=== PATIENT | male | born 1960 | race Caucasian/White ===

== ENCOUNTER 2023-11-12 18:34 | Inpatient (IN) | payer OTHER, SELFPAY ==
[2023-11-12 12:53] VITALS: BP 125/82
[2023-11-12 13:17] LABS: Glucose - Point of Care 178 mg/dl (70-99)
[2023-11-12 13:23] LABS: % Basophils 1.5 % (0-2); % Eosinophils 2.4 % (0-6); % Immature Granulocytes 0.2 % (0-0.5); % Lymphocytes 15.2 % (20.5-51.1); % Monocytes 9.3 % (1.7-9.3); % Neutrophils 71.4 % (42.2-75.2); Absolute Basophils 0.1 10^3/uL (0-0.2); Absolute Eosinophils 0.1 10^3/uL (0-0.7); Absolute Lymphocytes 0.7 10^3/uL (1.2-3.4); Absolute Monocytes 0.4 10^3/uL (0.1-0.6); Absolute Neutrophils 3.2 10^3/uL (1.4-6.5); Hematocrit 32.6 % (39.0-52.0); Hemoglobin 10.7 g/dL (13.0-18.0); Mean Corp Hgb Conc. 32.8 g/dL (33.0-37.0); Mean Corpuscular Hgb 29.5 pg (27.0-31.0); Mean Corpuscular Volume 89.8 fL (80.0-94.0); Mean Platelet Volume 10.3 fL (7.4-10.4); Nucleated Red Blood Cells % 0 % (-); Platelet Count 171 10^3/uL (130-400); Red Blood Cell Count 3.63 10^6/uL (4.70-6.10); Red Cell Dist. Width 15.6 % (11.5-14.5); White Blood Cell Count 4.5 10^3/uL (4.8-10.8)
[2023-11-12 13:25] LABS: Venous Blood Gas B.E. 3.1 mmol/L (-4 to +4); Venous Blood Gas HCO3 28.5 mmol/L (22-27); Venous Blood Gas O2 Sat % 86.9 %; Venous Blood Gas O2 Therapy RA; Venous Blood Gas pCO2 46 mmHg (35-48); Venous Blood Gas pO2 62 mmHg (30-50)
[2023-11-12 13:41] LABS: Lactic Acid 0.9 mmol/L (0.7-2.0)
[2023-11-12 13:45] LABS: ALT (SGPT) 45 U/L (0-50); AST (SGOT) 54 U/L (17-59); Albumin 2.7 g/dl (3.5-5.0); Alkaline Phosphatase 93 U/L (38-126); Blood Urea Nitrogen 76 mg/dl (9-20); Carbon Dioxide 27 mmol/L (22-30); Chloride 95 mmol/L (98-107); Glucose 185 mg/dl (70-99); Potassium 4.8 mmol/L (3.5-5.1); Sodium 134 mmol/L (135-145); Total Bilirubin 0.8 mg/dl (0.2-1.3); Total Protein 5.3 g/dl (6.3-8.2)
[2023-11-12 13:48] LABS: NT-proBNP > 27000 pg/ml
[2023-11-12 13:51] LABS: Ammonia < 9 umol/L (9-30)
[2023-11-12 14:38] LABS: B-Hydroxybutyrate 0.68 mmol/L (0.02-0.27)
--- NOTE | 2023-11-12 15:54 | ED.GENMED ---
History of Present Illness
General
Chief Complaint: Skin Problem
Source: patient and spouse
Exam Limitations: none
Time Seen by Provider: 11/12/23 15:27
Nursing documentation reviewed up to this point in time: agreed with
Travel History
Have you had any contact with someone who has COVID-19?: No
Do you have any symptoms of coronavirus? Fever > 100 degrees, chills, cough, shortness of breath, sore throat, loss of taste or smell, muscle aches, or headache?: No
History of Present Illness
History of Present Illness:
63 yo male presents to the emergency department c/o right foot wound, confusion, shortness of breath and swelling. He is on peritoneal dialysis followed at [place].
Past History
Past History
ED Past Medical History: HTN, IDDM, Renal failure and Other (PVD)
ED Past Surgical History: Other (Vascular stents)
Social History
Tobacco: Non-smoker
Alcohol: None
Drug: None
Personal:
Living: with family
Review of Systems
Review of Systems
Allergies reviewed?: Yes
All Other Systems: Not applicable
Constitutional: Reports no symptoms
EENT: Reports no symptoms
Respiratory: Reports trouble breathing
Cardiac: Reports no symptoms
ABD/GI: Reports no symptoms
: Reports no symptoms
Musculoskeletal: Reports edema
Skin: Reports no symptoms
Neurological: Reports no symptoms
Endocrine: Reports no symptoms
Hematologic/Lymphatic: Reports no symptoms
Psychiatric: Reports no symptoms
Phy Exam
Physical Exam
Physical Exam:
Physical Exam
General: no apparent distress, not acutely ill
Neck: supple. no meningeal signs. normal posterior pharynx
Heart: s1/s2 regular rate and rhythm, no murmur. equal radial
pulses.
HEENT: Pupils equal round reactive to light, EOMI
Lungs: no acute respiratory distress. clear bilaterally
Abdomen: normal bowel sounds. not tender. no CVAT, peritoneal dialysis port
Neuro: alert and oriented. no focal neurological deficits cranial nerves II through XII intact
Skin: no rash
Psychiatric: well kept. interactive and cooperative
Extremities: Bilateral tibial edema. no calf tenderness. negative homans. good distal pulses
Course
Orders/Labs/Results
Orders:
Orders
11/12/23 13:04
ECG [Electrocardiogram (*1)] Urgent
Reason for Study: Fatigue / Weakness
EKG- Treatment ONCE
11/12/23 13:11
Type+Screen Urgent
Ammonia Urgent
B-Hydroxybutyrate Urgent
Complete Blood Count/With Diff Urgent
Comprehensive Metabolic Panel Urgent
Lactic Acid Urgent
NT-proBNP Urgent
Venous Blood Gas Urgent
%Oxygen/Room Air: RA
Blood Culture Urgent
KRISTEN Source: Blood/Venous
Specimen Description:
11/12/23 15:51
CT Head W/o Iv Contrast Urgent
Comment:
Reason For Exam: confusion
11/12/23 15:53
CR Chest - 2 Views Urgent
Comment:
Reason For Exam: short of breath
11/12/23 17:29
Oxycodone/Acetaminophen [Percocet 5/325] 1 tablet PO NOW STA
11/12/23 17:38
Urinalysis Reflex To Culture Routine
11/12/23 17:50
Admit/Transfer Patient As Directed
Co-Sign Provider:
Level of Care: Inpatient admission
Assign to:: IMU- Intermediate Care
Physician / Group: romulo
Diagnosis: CHF
Reason for Hospitalization: chf
Expected length of stay greater than two midnights?: Yes
ELOS- Estimated Length of Stay in days: 3
I certify the patient meets the requirements for IP care: Yes
11/12/23 17:53
Code Status As Directed
Resuscitation Status: Full Code
11/12/23 17:55
COVID-19 Antigen Stat
Source: Nasal Swab
PT/INR [Prothrombin Time] Stat
11/12/23 18:24
Troponin I Urgent
Peritoneal Dialysis As Directed
Use same dialysate for all exchanges or alternate dialysate?: Alternate exchanges
Deflex Low Ca/Low Mag primary alternate % Dextrose:: 4.25% Dextrose
Alternate with:: 2.5% Dextrose
Volume in liters per exchange (liters):: 2
Frequency of exchanges in hours:: 4
Additives:: No
11/12/23 18:25
Furosemide [Lasix] 80 mg IV NOW STA
HydrALAZINE [Apresoline] 10 mg IV Q4HPRN PRN
11/12/23 18:38
Acetaminophen [Tylenol] 650 mg PO DAILYPRN PRN
Dextrose 50%-Water [Dextrose 50% Syringe] 12.5 grams IV [id number] PRN
Gabapentin [Neurontin] 100 mg PO BIDPRN PRN
Glucagon [GlucaGen] 1 mg IM PRN PRN
Melatonin 3 mg PO HSPRN PRN
Oxycodone/Acetaminophen [Percocet 5/325] 1 tablet PO DAILYPRN PRN
Warfarin [Coumadin] 4 mg PO MOTUWETHFRSA@1800
11/12/23 18:38
NEPHROLOGY CONSULT Routine
Consulting Provider: Reji Fields
Was physician already notified: Yes
WOUND/OSTOMY CONSULT Routine
Reason for Consult: right LE blister
MRI Brain [MR Brain Without Contrast] Routine
Comment:
Reason For Exam: dysphagia
Recent pill cam endoscopy?: No
Activity As Directed
Activity Level: As Tolerated
Bedside Glucose Monitoring As Directed
Frequency: AC&HS
Comment: Change to q6h if pt on TPN, tube feeding or not eating
Intake/ Output As Directed
Frequency: Per unit guidelines
Neurological Checks As Directed
Frequency: Per unit guidelines
Vital Signs As Directed
Frequency: Per unit guidelines
Weight As Directed
Frequency: Daily
11/12/23 20:00
Amlodipine [Norvasc] 5 mg PO BID
Bisoprolol Fumarate [Zebeta] 5 mg PO BID
Cilostazol [Pletal] 100 mg PO BID
Magnesium l-Lactate [Mag-Tab Sr] 84 mg PO BID
11/12/23 22:00
Atorvastatin [Lipitor] 40 mg PO HS
Potassium Chloride [KCl] 10 meq PO HS
11/13/23 Breakfast
2000 calorie (17 carb) Diabetic
Fluid Restriction: 1200 mL/day (40 oz)
Diabetic Diet: Sodium, 2 Gram
Basic Metabolic Panel IN AM
Cardiovascular Evaluation IN AM
Complete Blood Count/No Diff IN AM
Glycohemoglobin (HgbA1c) IN AM
PT/INR [Prothrombin Time] IN AM
Occupational Therapy Consult [Ot Eval And Treat] IN AM
Physical Therapy Consult [Pt Eval And Treat] IN AM
Activity Level: As Tolerated
11/13/23 07:30
Insulin Aspart Corrective Low [Novolog Flexpen-Low Resistance] See Protocol SC AC
11/13/23 08:00
Aspirin Low Dose EC [Aspir Low (Enteric Coated)] 81 mg PO DAILY
Calcium Acetate [Phoslo] 667 mg PO MEALS
Ezetimibe [Zetia] 10 mg PO DAILY
Insulin Aspart Pen [Novolog Flexpen] 28 units SC BID
Pantoprazole [Protonix] 40 mg PO DAILY
Sertraline HCl [Zoloft] 100 mg PO DAILY
insulin glargine [Basaglar KwikPen U-100 Insulin] 30 unit SC DAILY
11/14/23 06:00
Basic Metabolic Panel IN AM
Complete Blood Count/No Diff IN AM
PT/INR [Prothrombin Time] IN AM
11/14/23 08:00
Ergocalciferol [Drisdol (Vitamin D2)] 50,000 units PO PRESLEY
11/15/23 06:00
Basic Metabolic Panel IN AM
Complete Blood Count/No Diff IN AM
PT/INR [Prothrombin Time] IN AM
11/15/23 08:00
Calcitriol [Rocaltrol] 0.25 mcg PO MoWeFr@0800
11/16/23 06:00
Basic Metabolic Panel IN AM
Complete Blood Count/No Diff IN AM
PT/INR [Prothrombin Time] IN AM
11/17/23 06:00
Basic Metabolic Panel IN AM
Complete Blood Count/No Diff IN AM
Abnormal Lab Results
11/12/23 11/12/23
13:11 13:12
WBC 4.5 L 10^3/uL
(4.8-10.8)
RBC 3.63 L 10^6/uL
(4.70-6.10)
Hgb 10.7 L g/dL
(13.0-18.0)
Hct 32.6 L %
(39.0-52.0)
MCHC 32.8 L g/dL
(33.0-37.0)
RDW 15.6 H %
(11.5-14.5)
Absolute Lymphs (auto) 0.7 L 10^3/uL
(1.2-3.4)
Lymphocytes % 15.2 L %
(20.5-51.1)
VBG pO2 62 H mmHg
(30-50)
VBG HCO3 28.5 H mmol/L
(22-27)
Sodium 134 L mmol/L
(135-145)
Chloride 95 L mmol/L
(98-107)
BUN 76 H mg/dl
(9-20)
Creatinine 13.2 H* mg/dL
(0.7-1.3)
Glucose 185 H mg/dl
(70-99)
Ammonia < 9 L umol/L
(9-30)
Total Protein 5.3 L g/dl
(6.3-8.2)
Albumin 2.7 L g/dl
(3.5-5.0)
B-Hydroxybutyrate 0.68 H mmol/L
(0.02-0.27)
POC Glucose 178 H mg/dl
(70-99)
11/12/23 13:11
11/12/23 13:11
Vital Signs
Initial and Last Documented VS:
Initial Vital Signs
Temp Pulse Resp BP Pulse Ox
97.0 F 74 20 125/82 99
11/12/23 12:53 11/12/23 12:53 11/12/23 12:53 11/12/23 12:53 11/12/23 12:53
Last Documented Vital Signs
Temp Pulse Resp BP Pulse Ox
97.0 F 81 20 125/82 93
11/12/23 12:53 11/12/23 18:15 11/12/23 18:15 11/12/23 12:53 11/12/23 18:15
MDM/Problems Addressed
Differential Diagnosis Includes:
CVA, toxic metabolic encephalopathy, renal failure, peripheral neuropathy
MDM/Problems Addressed:
63-year-old male with altered mental status, possibly due to toxic metabolic encephalopathy versus CVA, chronic renal failure on peritoneal dialysis, diabetes mellitus
Chronic conditions affecting care: DM, HTN and Kidney disease
Acute Exacerbation and/or Progression of Chronic Illness: DM, HTN and Kidney disease
*Pulse Oximetry
Patient hypoxic: no
*EKG
Interpreted by ED Provider?: Yes
EKG Intrepretation Date: 11/12/23
EKG Intrepretation Time: 13:16
Interpretation: abnormal
Comparison EKG: no comparison EKG present
Heart Rate: 71
Rate: normal
Rhythm: sinus
Jackson: normal axis
Interval: normal interval
QRS Pattern: right bundle branch block
Ischemia: non-specific ST changes
*Patient Service Associate Interpretation
Rate: normal
Interpretation: normal
Heart Rate: 72
Rhythm: sinus
*Critical Care Note
Total Time (30-74mins, 75-104mins- exclusive of procedures): Not Applicable
Data Reviewed
Review of Other/Old Records Reveals: Operative Reports
Source: previous hospital records (diagnostic arteriogram, blloon angioplasty and stent right sfa and eia 06/13/21)
Patient Management
Social determinants of health affecting care: Strong social support
Escalation/DeEscalation of care consider admission/obs:
admit not indicated
ED Attending Note
-
Portions of this chart may have been created with voice recognition software.� Occasional wrong word or��sound alike� substitutions may have occurred due to the inherent limitations of voice recognition software.
Discharge Plan
Departure
Patient Disposition: Admit
Date of Disposition: 11/12/23
Time of Disposition: 17:02
Admit to: Telemetry
Presentation/result/management discussed w/ accepting MD/DO: Hospitalist
Patient with high blood pressure during this ER visit?: Yes
Condition: Fair
Discharge Problem:
Fluid overload, Confusion, Blister of foot, right
Interventions
Interventions:
*Risk Screen - Suicide Last Done: 11/12/23 12:53
*General Assessment Last Done: 11/12/23 12:53
*Neglect/Abuse Screening Last Done: 11/12/23 12:53
ED- Fall Risk Assessment Last Done: 11/12/23 18:24
--- NOTE | 2023-11-12 17:31 | HPS.HSE ---
Addendum entered and electronically signed by Rodríguez Eugene MD 11/12/23 18:16:
I saw and examined the patient.
The DINKING MACHINE OPERATOR's note was reviewed and I agree with the note.
Comment:
63-year-old male with extensive past medical history of ESRD on peritoneal dialysis since 2019 who is presenting with confusion and lower extremity edema. Per spouse at bedside, patient has been confusing to properly administer and use PD. Spouse
has been doing PD manually and states she has been making mistakes. Spouse also stated that patient has been confused and slow to respond at times. Patient stated sometimes he has difficulty expressing himself. States he rarely uses lorazepam and
uses half milligram dose compared to 1 mg as prescribed. Also states of worsening of lower extremity edema for the past 2 weeks and also bilateral upper extremities. During my evaluation patient became hypoxic to O2 sats of 84-85% on room air and
2 L oxygenation was applied.
General:�Well Developed, Well Nourished and No Apparent Distress
HEENT:�NormoCephalic, Moist mucous membranes and Atraumatic
Respiratory:�Clear
Cardiac:�S1/S2 and Regular Rhythm; No Murmur or Rub
GI:�Soft, Non Tender, Non Distended and Normal Bowel Sounds; No Organomegaly, PD catheter noted
Musculoskeletal:�No Clubbing, No Cyanosis and Other (Bilateral lower extremities edema right greater than left)
Skin:�No Rash
Neuro:�AO x 3 and Nonfocal/grossly intact
Psych:�Calm
Impression
Acute toxic metabolic encephalopathy likely secondary to uremia versus lorazepam induced versus rule out CVA
Anasarca secondary to ESRD secondary to improper PD at home
Primary hypertension
GERD
Diabetes mellitus
Depression
Peripheral arterial disease
Peripheral venous disease
Anemia of chronic disease
Hyperlipidemia
Depression/anxiety
Plan
Check MRI of the brain
Reduce Lantus dose. Patient currently states he is hungry and wants to eat
Per spouse patient sugar has been elevated at home.
Continue home blood pressure medication
Hold lorazepam
Continue Coumadin
Neurochecks
Check INR
Nephrology evaluation. Probably will require VN as patient most likely not properly performing PD at home
DVT prophylaxis with Coumadin
I spent a total of 78 minutes with the patient or on the floor. More than 50% of this time involved counseling and coordination of care.
Original Note:
Family Physician
-
Family Physician: Susan Starkey
Chief Complaint
-
CONFUSION
sob
left LE blister
History of Present Illness
64-year-old male past medical history of hypertension, type 2 diabetes, peripheral vascular disease, coronary artery disease, hypertension, hyperlipidemia, end-stage renal disease on peritoneal dialysis, depression presented to us with right lower
extremity blister which he noticed couple days ago. Patient stated bilateral lower extremity edema. Short of breath which is worse with exertion. Patient also complaining of orthopnea. Complaining of headache. Denies dizziness or syncope.
Denies chest pain. Denies abdominal pain nausea vomiting. stated intermittent diarrhea for past few weeks. Patient denies dysuria hematuria. stated intermittent confusion for the past few weeks and her. He usually used to do his
peritoneal dialysis by himself but not anymore because he has been forgetting.
In ER elevated BNP, chest x-ray with mild CHF. Admitted for further management
Medical History
Past Medical History
Past Medical History: Reports Other
Additional Past Medical History:
GERD
HTN
Hypercholesterolemia
NIDDM, Renal Failure
ESRd on peritoneal dialysis
Depression
PVD
PAD
Past Surgical History: Reports Other
Additional Past Surgical History:
Bilateral carotid endarterectomy
Cholecystectomy
Coronary artery bypass graft
Stent on his legs
Social History
Tobacco: Non-smoker
Alcohol: None
Drug: None
Personal:
Living: With Family
Family History
Family History: Not pertinent
Allergies / Home Medications
Allergies reflects when Allergies were last updated in [employer].
Home Medications with original date entered in [employer]
Allergy/Medication List:
Allergies
Allergy/AdvReac Type Severity Reaction Status Date / Time
No Known Allergies Allergy Verified 10/15/23 11:53
Home Medications
atorvastatin 40 mg tablet 40 mg PO HS 06/12/21
cilostazol 100 mg tablet 100 mg PO BID 06/12/21
ergocalciferol (vitamin D2) 1,250 mcg (50,000 unit) capsule 50,000 units PO PRESLEY 06/12/21
ezetimibe 10 mg tablet 10 mg PO DAILY 06/12/21
pantoprazole 40 mg tablet,delayed release 40 mg PO DAILY 06/12/21
sertraline 50 mg tablet 100 mg PO DAILY 06/12/21
acetaminophen 325 mg tablet (Tylenol) 650 mg PO DAILYPRN PRN mild pain 10/15/23
amlodipine 5 mg tablet 5 mg PO BID 10/15/23
bisoprolol fumarate 5 mg tablet 5 mg PO BID 10/15/23
calcitriol 0.25 mcg capsule 0.25 mcg PO MOWEFR 10/15/23
calcium acetate 668 mg (169 mg calcium) tablet 668 mg PO MEALS 10/15/23
gabapentin 100 mg capsule 100 mg PO BIDPRN PRN nerve pain 10/15/23
insulin aspart U-100 100 unit/mL (3 mL) subcutaneous pen 28 unit SC BID 10/15/23
insulin glargine 100 unit/mL (3 mL) subcutaneous pen (Basaglar KwikPen U-100 Insulin) 60 unit SC DAILY 10/15/23
magnesium oxide 400 mg PO BID 10/15/23
melatonin 3 mg tablet 3 mg PO HSPRN PRN sleep 10/15/23
oxycodone-acetaminophen 5 mg-325 mg tablet 1 tab PO DAILYPRN PRN severe pain 10/15/23
potassium chloride 10 mEq tablet,extended release 10 meq PO HS 10/15/23
warfarin 4 mg tablet 4 mg PO MOTUWETHFRSA@1800 10/15/23
aspirin 81 mg tablet,delayed release 81 mg PO DAILY 11/12/23
lorazepam 1 mg tablet 1 mg PO DAILY PRN anxiety 11/12/23
Review of Systems
-
Constitutional: Reports Weight Gain
EENT: Reports No Symptoms
Respiratory: Reports Cough and Trouble Breathing
Cardiac: Reports No Symptoms
Abdomen/GI: Reports Diarrhea
: Reports No Symptoms
Musculoskeletal: Reports Edema (Bilateral lower extremity edema)
Skin: Reports No Symptoms
Neurological: Reports Headache
Endocrine: Reports No Symptoms
Hematologic/Lymphatic: Reports No Symptoms
Psych: Reports No Symptoms
Physical Exam
Vital Signs
Vital Signs
Temp Pulse Resp BP Pulse Ox
97.0 F 74 20 125/82 99
11/12/23 12:53 11/12/23 12:53 11/12/23 12:53 11/12/23 12:53 11/12/23 12:53
Physical Exam
General: Well Developed, Well Nourished and No Apparent Distress
HEENT: NormoCephalic, Moist mucous membranes and Atraumatic
Respiratory: Clear
Cardiac: S1/S2 and Regular Rhythm; No Murmur or Rub
GI: Soft, Non Tender, Non Distended and Normal Bowel Sounds; No Organomegaly
Rectal: Deferred by Provider
Musculoskeletal: No Clubbing, No Cyanosis and Other (Bilateral lower extremities edema right greater than left)
Skin: No Rash
Neuro: AO x 3 and Nonfocal/grossly intact
Psych: Calm
Laboratory Results
-
11/12/23 13:11
11/12/23 13:11
Laboratory Results
Lactic Acid 0.9 mmol/L (0.7-2.0) 11/12/23 13:11
Total Bilirubin 0.8 mg/dl (0.2-1.3) 11/12/23 13:11
AST 54 U/L (17-59) 11/12/23 13:11
ALT 45 U/L (0-50) 11/12/23 13:11
Alkaline Phosphatase 93 U/L (38-126) 11/12/23 13:11
Data Reviewed
-
Diagnostic Radiology: Report Reviewed by me
Lab Data: Labs Reviewed by me
Impression/Plan
-
# Metabolic encephalopathy likely uremic/dysphasia
-Head CT with impression of no acute intracranial abnormality noted.Increased soft tissue attenuation in the 0deep subcutaneous tissues adjacent to the outer table of the posterior midline/left paramidline parietal region, raising the possibility of
posttraumatic soft tissue swelling/contusion. Clinical correlation recommended.
-UA pending
-continue to monitor mentation
-obatin MRI of head to r/o acute stroke
# Diabetic foot blister wound
-does not look infectious
-afebrile
-ctm
-wound care consulted
# CHF exacerbation
-BNP 64261
-Chest x-ray with impression of Findings suspicious for mild congestive heart failure.
-Strict SOLIS
-Daily weight
-Fluid restriction
-nephrology consulted
# End-stage renal disease on peritoneal dialysis
-Nephrology consulted
-Calcitrol, calcium acetate
# Anemia of chronic kidney disease
-Hemoglobin stable at 10.7
-No active bleeding
-Continue to monitor
#Severe R PVD with claudication
#HX of vascular stenting (RLE x 2, LLE x 2)
-s/p angiopathy, right iliac artery,� balloon angioplasty and also status post OR on 06/13 for lysis� removal, SFA stent and external iliac stent
- continue ASA/Statin/cilostazol
-Gabapentin continued
-Coumadin continued
-daily PT/INR
Essential HTN
- continue Norvasc
- continue bisoprolol
IDDM
-sliding scale
-aspart 28un bid
-basaglar 30 units daily
-CHO diet
#HLD
- statin/Zetia
#CAD s/p CABG
- continue ASA/Statin/BB
Depression - continue Zoloft
DVT ppx:
Code: Full
[2023-11-12] MEDS: PERCOCET 5/325 1 TABLET PO (17:51)
--- NOTE | 2023-11-12 18:20 | CON.MD ---
Consultation - Medical
-
Assessment
-ESRD/PD
-volume overload
-CHF
-PAD
-HTN
-edema
-CAD/CABG
-DM2
Plan
-PD ordered, alternating 4.25/2.5%, 2L q4h
-trial lasix IV
-will need echo
-hydralazine prn
-check troponin
-[id number]
[2023-11-12 19:25] VITALS: BMI 33.1
[2023-11-12 19:43] LABS: INR 1.33; PT 16.8 Sec (11.4-14.6)
[2023-11-12 19:51] LABS: COVID-19 Antigen Negative (Negative)
[2023-11-12] MEDS: COUMADIN 4 MG PO (20:17)
[2023-11-12] MEDS: LASIX 80 MG IV (20:18)
[2023-11-12 20:19] VITALS: BP 144/87
[2023-11-12 21:00] VITALS: BP 177/85
[2023-11-12] MEDS: PLETAL 100 MG PO (22:14)
[2023-11-12] MEDS: MAG-TAB SR 84 MG PO (22:14)
[2023-11-12] MEDS: ZEBETA 5 MG PO (22:18)
[2023-11-12] MEDS: NORVASC 5 MG PO (22:18)
[2023-11-12 22:38] LABS: Urine Albumin 2+ (Neg - Trace); Urine Bilirubin Negative (Negative); Urine Character Clear (Clear); Urine Color Yellow; Urine Glucose Negative (Negative); Urine Ketone Negative (Negative); Urine Leukocyte Trace (Negative); Urine Nitrite Negative (Negative); Urine Occult Blood 3+ (Negative); Urine Specific Gravity 1.005 (<1.030); Urine Urobilinogen Negative (Neg - 1+)
[2023-11-12 22:49] LABS: Urine Squamous Cell 0-2 /LPF (Few)
[2023-11-12 22:50] LABS: Urine Bacteria Few (Negative); Urine Red Blood Cell 0-2 /HPF (0-2)
[2023-11-12 23:04] LABS: Troponin I 0.129 ng/ml
[2023-11-13] VITALS (19 sets, daily range): BP systolic 130–218; BP diastolic 36–152; BMI 32.8
[2023-11-13] MEDS: KCL 10 MEQ PO (00:32)
[2023-11-13] MEDS: APRESOLINE 10 MG IV ×4 (00:37→21:51)
[2023-11-13] MEDS: MELATONIN 3 MG PO (00:45)
[2023-11-13] MEDS: LIPITOR 40 MG PO ×2 (01:01→21:51)
[2023-11-13 06:26] LABS: Hematocrit 30.8 % (39.0-52.0); Mean Corp Hgb Conc. 32.5 g/dL (33.0-37.0); Mean Corpuscular Hgb 29.8 pg (27.0-31.0); Mean Corpuscular Volume 91.7 fL (80.0-94.0); Mean Platelet Volume 10.9 fL (7.4-10.4); Platelet Count 153 10^3/uL (130-400); Red Blood Cell Count 3.36 10^6/uL (4.70-6.10); Red Cell Dist. Width 15.8 % (11.5-14.5); White Blood Cell Count 5.9 10^3/uL (4.8-10.8)
[2023-11-13 06:37] LABS: INR 1.41; PT 17.5 Sec (11.4-14.6)
[2023-11-13 07:07] LABS: Blood Urea Nitrogen 82 mg/dl (9-20); Calcium 8.6 mg/dl (8.4-10.2); Carbon Dioxide 23 mmol/L (22-30); Chloride 98 mmol/L (98-107); Estimated Creatinine Clearance 6 ml/min; Glucose 194 mg/dl (70-99); HDL Cholesterol 44 mg/dl; LDL Cholesterol, Calculated 51 mg/dl; Potassium 5.3 mmol/L (3.5-5.1); Sodium 133 mmol/L (135-145); Total Cholesterol 128 mg/dl (50-199); Triglyceride 168 mg/dl (10-149); Very Low Density Lipoprotein 33 mg/dl (0-30); eGFR 3.54
[2023-11-13 08:17] LABS: Glucose - Point of Care 192 mg/dl (70-99)
[2023-11-13] MEDS: PHOSLO 667 MG PO ×3 (08:55→17:30)
[2023-11-13] MEDS: ASPIR LOW (ENTERIC COATED) 81 MG PO (08:55)
[2023-11-13] MEDS: NORVASC 5 MG PO ×2 (08:55→21:51)
[2023-11-13] MEDS: PROTONIX 40 MG PO (08:55)
[2023-11-13] MEDS: MAG-TAB SR 84 MG PO ×2 (08:57→21:51)
[2023-11-13] MEDS: ZOLOFT 100 MG PO (08:57)
[2023-11-13] MEDS: PLETAL 100 MG PO ×2 (08:57→21:51)
[2023-11-13] MEDS: ZETIA 10 MG PO (08:57)
[2023-11-13] MEDS: ZEBETA 5 MG PO ×2 (08:57→21:51)
[2023-11-13] MEDS: LANTUS 0.299999999999999989 UNITS SC (08:59)
[2023-11-13] MEDS: NOVOLOG FLEXPEN 28 UNITS SC ×2 (08:59→21:53)
[2023-11-13] MEDS: NOVOLOG FLEXPEN-LOW RESISTANCE 1 UNITS SC ×2 (09:05→19:23)
--- NOTE | 2023-11-13 09:18 | W.PN.NEPH.PH ---
Today's Communication / Plan
-
PD
Assessment/Plan
-
Assessment
-ESRD/PD
-volume overload
-CHF
-PAD
-HTN
-edema
-CAD/CABG
-DM2
Plan
-PD ordered, alternating 4.25/2.5%, 2L q4h MUST START THIS MORNING
-no further lasix, no effect
-hold K
-will need echo
-hydralazine prn-change to ATC with hold parameters instead
-follow troponin
-
-
Date of Service: November 13, 2023
CC / HPI / ROS
-
Chief Complaint:
ESRD
History of Present Illness:
DID NOT RECEIVE PD OVERNIGHT
BP remains high
K up at 5.3
remains on supplemental O2
Review of Systems:
still SOB
no CP
Labs
-
Labs:
WBC 5.9 10^3/uL (4.8-10.8) 11/13/23 06:09
RBC 3.36 10^6/uL (4.70-6.10) L 11/13/23 06:09
Hgb 10.0 g/dL (13.0-18.0) L 11/13/23 06:09
Hct 30.8 % (39.0-52.0) L 11/13/23 06:09
Plt Count 153 10^3/uL (130-400) 11/13/23 06:09
Sodium 133 mmol/L (135-145) L 11/13/23 06:09
Potassium 5.3 mmol/L (3.5-5.1) H 11/13/23 06:09
Chloride 98 mmol/L (98-107) 11/13/23 06:09
Carbon Dioxide 23 mmol/L (22-30) 11/13/23 06:09
BUN 82 mg/dl (9-20) H 11/13/23 06:09
Creatinine 14.0 mg/dL (0.7-1.3) H* 11/13/23 06:09
eGFR 3.54 11/13/23 06:09
Glucose 194 mg/dl (70-99) H 11/13/23 06:09
Calcium 8.6 mg/dl (8.4-10.2) 11/13/23 06:09
Xcm-V-Idyvcdacata Pept > 26916 pg/ml 11/12/23 13:11
Albumin 2.7 g/dl (3.5-5.0) L 11/12/23 13:11
Physical Exam
-
Vital Signs:
Vital Signs
Temp Pulse Resp BP Pulse Ox
97.6 F 74 17 183/68 93
11/13/23 08:13 11/13/23 08:00 11/13/23 08:00 11/13/23 08:00 11/13/23 08:00
Cardiovascular:: Regular rate and rhythm
Respiratory:: Bilateral: Coarse
Lung Excursion:: Normal
Abdomen:: Nontender and Soft
Bowel Sounds:: Normal
Extremity Edema:: +3: Bilateral:
--- NOTE | 2023-11-13 10:11 | PTCARENOTE ---
Report given to MONICA - Samuel BROUSSARD. Pt taken to MRI, then will go to IMU to begin PD.
[2023-11-13 10:18] LABS: Glycohemoglobin (HgbA1c) 8.6 % (4.0-5.6)
[2023-11-13] MEDS: PERCOCET 5/325 1 TABLET PO (11:47)
--- NOTE | 2023-11-13 11:50 | PTCARENOTE ---
Patient received from ER. Patient pulled over to room bed. AAO but confused to at times. VSS. Complaints of pain, Percocet given. PD orders reviewed and 4.25% warming in PD warmer. Single point cane with patient to use for ambulation. Urinal
at bedside. Bed alarm on. Oriented to room. Call lin in reach.
--- NOTE | 2023-11-13 13:12 | W.PN.HOSP.TC ---
Today's Communication/Plan
-
Continue with PT
Volume removal
Blood pressure control
Monitor POC
Continue Coumadin
Assessment / Plan
Assessment / Plan
# Metabolic encephalopathy likely uremic-seems to be improving.
-Head CT with impression of no acute intracranial abnormality noted.Increased soft tissue attenuation in the 0deep subcutaneous tissues adjacent to the outer table of the posterior midline/left paramidline parietal region, raising the possibility of
posttraumatic soft tissue swelling/contusion. Clinical correlation recommended.
-UA negative. Blood cultures in lab.
-continue to monitor mentation
-MRI brain negative for acute stroke or pathology.
# Diabetic foot blister wound
-does not look infectious
-afebrile
-ctm
-wound care consulted
# CHF exacerbation
-BNP 92171
-Chest x-ray with impression of Findings suspicious for mild congestive heart failure.
-Strict SOLIS
-Daily weight
-Fluid restriction.
-ECHO
-nephrology consulted
# End-stage renal disease on peritoneal dialysis
-Nephrology consulted
-Calcitrol, calcium acetate
-Volume removal showed up.
# Anemia of chronic kidney disease
-Hemoglobin stable at 10.7
-No active bleeding
-Continue to monitor
#Severe R PVD with claudication
#HX of vascular stenting (RLE x 2, LLE x 2)
-s/p angiopathy, right iliac artery,� balloon angioplasty and also status post OR on 06/13 for lysis� removal, SFA stent and external iliac stent
- continue ASA/Statin/cilostazol
-Gabapentin continued
-Coumadin continued 4 mg
-daily PT/INR. INR 1.4.
Essential HTN
- continue Norvasc
- continue bisoprolol
- Started on standing hydralazine. May need better blood pressure control regimen if not improved with fluid removal3
IDDM
-sliding scale
-aspart 28un bid
-Restarted on reduced dose of basaglar 30 units at bedtime compared to 60 units
-CHO diet
#HLD
- statin/Zetia
#CAD s/p CABG
- continue ASA/Statin/BB
Depression - continue Zoloft
DVT ppx:
Code: Full
I spent a total of 52 minutes with the patient or on the floor. More than 50% of this time involved counseling and coordination of care.
Anticipated Discharge: > 48 hours
Subjective/Interval History
-
Date of Service: November 13, 2023
States improvement in breathing.
Objective Data
-
Labs:
Laboratory Results
11/13/23
06:09
WBC 5.9
Hgb 10.0 L
Hct 30.8 L
Plt Count 153
PT 17.5 H
INR 1.41
Sodium 133 L
Potassium 5.3 H
Chloride 98
Carbon Dioxide 23
BUN 82 H
Creatinine 14.0 H*
Glucose 194 H
Calcium 8.6
Vital Signs:
Vital Signs
Temp Pulse Resp BP Pulse Ox
97.6 F 80 26 175/52 91
11/13/23 08:13 11/13/23 11:49 11/13/23 11:14 11/13/23 11:49 11/13/23 11:14
Physical Exam
-
General: Well Developed and No Apparent Distress
HEENT: Normocephalic, Atraumatic and Moist Mucous Membranes
Respiratory: Clear to Auscultation
Cardiac: Regular Rhythm and S1/S2; Negative Murmur, Rub or Gallop
GI: Soft, Nontender, Nondistended, Normal Bowel Sounds and Other (PD catheter noted.); Negative Organomegaly
Rectal: Deferred by Provider
Musculoskeletal: No Clubbing, No Cyanosis and No Edema
Skin: Negative Rash
Neuro: Awake, Alert, No Motor Deficits and Nonfocal/Grossly Intact
Psych: Calm
[2023-11-13 13:30] LABS: Glucose - Point of Care 214 mg/dl (70-99)
[2023-11-13] MEDS: NOVOLOG FLEXPEN-LOW RESISTANCE 2 UNITS SC (13:57)
[2023-11-13] MEDS: APRESOLINE IV (14:01)
[2023-11-13] MEDS: COUMADIN 4 MG PO (17:30)
[2023-11-13 18:16] LABS: Glucose - Point of Care 182 mg/dl (70-99)
[2023-11-13 21:35] LABS: Glucose - Point of Care 192 mg/dl (70-99)
[2023-11-14] VITALS (21 sets, daily range): BP systolic 60–160; BP diastolic 41–112; PULSE 77; O2SAT 96–97; BMI 32.2
[2023-11-14] MEDS: APRESOLINE 10 MG IV ×2 (02:48→06:16)
[2023-11-14 06:45] LABS: Hematocrit 29.3 % (39.0-52.0); Hemoglobin 9.7 g/dL (13.0-18.0); Mean Corp Hgb Conc. 33.1 g/dL (33.0-37.0); Mean Corpuscular Hgb 29.5 pg (27.0-31.0); Mean Corpuscular Volume 89.1 fL (80.0-94.0); Mean Platelet Volume 10.7 fL (7.4-10.4); Platelet Count 154 10^3/uL (130-400); Red Blood Cell Count 3.29 10^6/uL (4.70-6.10); Red Cell Dist. Width 16.1 % (11.5-14.5); White Blood Cell Count 7.4 10^3/uL (4.8-10.8)
--- NOTE | 2023-11-14 06:45 | PTCARENOTE ---
Pt continues to be confused and drowsy, slow speech with difficulty finding words. On 3L NC. Denies any pain. Tolerated PD, no issues. Able to get pt's dry weight this AM after draining. Tele showing NSR with episodes of sinus tach 120s non
sustained. BPs adequate. Assisted to BSC to attempt to have BM. Pt very unsteady on feet and needs lots of cueing. Spoke with , Rubina, who stated pt hasnt answered his phone all day. Bed alarm set. Call lin within reach.
[2023-11-14 07:29] LABS: Blood Urea Nitrogen 73 mg/dl (9-20); Calcium 8.6 mg/dl (8.4-10.2); Carbon Dioxide 26 mmol/L (22-30); Chloride 102 mmol/L (98-107); Estimated Creatinine Clearance 7 ml/min; Glucose 60 mg/dl (70-99); Potassium 4.3 mmol/L (3.5-5.1); Sodium 134 mmol/L (135-145); eGFR 3.94
[2023-11-14 08:32] LABS: Glucose - Point of Care 127 mg/dl (70-99)
[2023-11-14 08:41] LABS: INR 1.72; PT 20.5 Sec (11.4-14.6)
[2023-11-14] MEDS: MAG-TAB SR 84 MG PO ×2 (09:24→21:41)
[2023-11-14] MEDS: PHOSLO 667 MG PO ×3 (09:24→17:58)
[2023-11-14] MEDS: LANTUS 0.299999999999999989 UNITS SC (09:24)
[2023-11-14] MEDS: PROTONIX 40 MG PO (09:24)
[2023-11-14] MEDS: ZOLOFT 100 MG PO (09:25)
[2023-11-14] MEDS: ASPIR LOW (ENTERIC COATED) 81 MG PO (09:30)
[2023-11-14] MEDS: ZETIA 10 MG PO (09:30)
[2023-11-14] MEDS: PLETAL 100 MG PO ×2 (09:30→21:41)
[2023-11-14] MEDS: APRESOLINE IV ×3 (09:30→17:59)
[2023-11-14] MEDS: NOVOLOG FLEXPEN-LOW RESISTANCE SC (09:48)
[2023-11-14] MEDS: NOVOLOG FLEXPEN SC (09:48)
[2023-11-14] MEDS: ZEBETA PO (09:55)
[2023-11-14] MEDS: NORVASC PO (09:55)
--- NOTE | 2023-11-14 10:00 | W.PN.NEPH.PH ---
Today's Communication / Plan
-
PD ordered
Assessment/Plan
-
Assessment
-ESRD/PD
-volume overload
-CHF
-PAD
-HTN
-edema
-CAD/CABG
-DM2
Plan
-PD ordered, all 4.25%, 2L q4h for now as he needs better UF
-hold K
-await echo
-hydralazine ATC
-
-
Date of Service: November 14, 2023
CC / HPI / ROS
-
Chief Complaint:
ESRD
History of Present Illness:
PD with modest UF, but only with 4.25%
PD in progress
BP better controlled
K better
remains on supplemental O2
Review of Systems:
on supplemental O2
feels out of sorts
no CP
Labs
-
Labs:
WBC 7.4 10^3/uL (4.8-10.8) 11/14/23 06:25
RBC 3.29 10^6/uL (4.70-6.10) L 11/14/23 06:25
Hgb 9.7 g/dL (13.0-18.0) L 11/14/23 06:25
Hct 29.3 % (39.0-52.0) L 11/14/23 06:25
Plt Count 154 10^3/uL (130-400) 11/14/23 06:25
Sodium 134 mmol/L (135-145) L 11/14/23 06:17
Potassium 4.3 mmol/L (3.5-5.1) 11/14/23 06:17
Chloride 102 mmol/L (98-107) 11/14/23 06:17
Carbon Dioxide 26 mmol/L (22-30) 11/14/23 06:17
BUN 73 mg/dl (9-20) H 11/14/23 06:17
Creatinine 12.8 mg/dL (0.7-1.3) H* 11/14/23 06:17
eGFR 3.94 11/14/23 06:17
Glucose 60 mg/dl (70-99) L 11/14/23 06:17
Calcium 8.6 mg/dl (8.4-10.2) 11/14/23 06:17
Bui-A-Rhygokiplod Pept > 99228 pg/ml 11/12/23 13:11
Albumin 2.7 g/dl (3.5-5.0) L 11/12/23 13:11
Physical Exam
-
Vital Signs:
Vital Signs
Temp Pulse Resp BP Pulse Ox
97.6 F 60 28 92/55 94
11/14/23 07:30 11/14/23 09:30 11/14/23 06:00 11/14/23 09:55 11/14/23 06:00
Cardiovascular:: Regular rate and rhythm
Respiratory:: Bilateral: Coarse
Lung Excursion:: Normal
Abdomen:: Nontender and Soft
Bowel Sounds:: Normal
Extremity Edema:: +3: Bilateral:
[2023-11-14] MEDS: DRISDOL (VITAMIN D2) 50000 UNITS PO (10:05)
--- NOTE | 2023-11-14 12:43 | W.PN.HOSP.TC ---
Today's Communication/Plan
-
Hold Premeal insulin as with decreased appetite
Neurology evaluation
Continue with PT
Wean oxygen as tolerated
Assessment / Plan
Assessment / Plan
# Metabolic encephalopathy likely uremic vs? Subclinical seizures patient with right upper and lower extremity intermittent jerking movements
-Head CT with impression of no acute intracranial abnormality noted.Increased soft tissue attenuation in the 0deep subcutaneous tissues adjacent to the outer table of the posterior midline/left paramidline parietal region, raising the possibility of
posttraumatic soft tissue swelling/contusion. Clinical correlation recommended.
-UA negative. Blood cultures in lab negative so far. Afebrile..
-continue to monitor mentation
-MRI brain negative for acute stroke or pathology.
-Ativan has been held. Gabapentin is as needed. 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
-Will ask Neuro for input
# End-stage renal disease on peritoneal dialysis
#Anasarca 2/2 above
# Acute hypoxic respiratory insufficiency secondary to above
-Nephrology consulted
-Calcitrol, calcium acetate
-Volume removal should help. With patient confusion unclear how patient manages PD at home.
-Unclear if patient should be a candidate for intermittent HD.
# Diabetic foot blister wound
-does not look infectious
-afebrile
-ctm
-wound care consulted
# CHF exacerbation
-BNP [id number]
-Chest x-ray with impression of Findings suspicious for mild congestive heart failure.
-Strict SOLIS
-Daily weight
-Fluid restriction.
-ECHO
-nephrology consulted
# Anemia of chronic kidney disease
-Hemoglobin stable at 10.7
-No active bleeding
-Continue to monitor
#Severe R PVD with claudication
#HX of vascular stenting (RLE x 2, LLE x 2)
-s/p angiopathy, right iliac artery,� balloon angioplasty and also status post OR on 06/13 for lysis� removal, SFA stent and external iliac stent
- continue ASA/Statin/cilostazol
-Gabapentin continued
-Coumadin continued 4 mg
-daily PT/INR. INR 1.7 and repeat additional 4 mg dose tonight as at home does not take dose on Wednesday.
Essential HTN
- continue Norvasc
- continue bisoprolol
- Started on standing hydralazine. May need better blood pressure control regimen if not improved with fluid removal
IDDM
-sliding scale
-Restarted on reduced dose of basaglar 30 units at bedtime compared to 60 units as with poor appetite
-CHO diet
#HLD
- statin/Zetia
#CAD s/p CABG
- continue ASA/Statin/BB
Depression - continue Zoloft
DVT ppx: coumadin
Code: Full
PT/OT
I spent a total of 55 minutes with the patient or on the floor. More than 50% of this time involved counseling and coordination of care.
Anticipated Discharge: > 48 hours
Subjective/Interval History
-
Date of Service: November 14, 2023
Patient with severe confusion.
Confused at times
Severely slow to express himself
Also subtle right upper extremity right lower extremity twitching jerks noted
Per patient he noticed right upper and lower extremity jerking since being admitted to the hospital
Objective Data
-
Labs:
Laboratory Results
11/14/23 11/14/23 11/14/23
06:17 06:25 08:21
WBC 7.4
Hgb 9.7 L
Hct 29.3 L
Plt Count 154
PT Cancelled 20.5 H
INR Cancelled 1.72
Sodium 134 L
Potassium 4.3
Chloride 102
Carbon Dioxide 26
BUN 73 H
Creatinine 12.8 H*
Glucose 60 L
Calcium 8.6
Vital Signs:
Vital Signs
Temp Pulse Resp BP Pulse Ox
97.6 F 72 18 117/61 95
11/14/23 07:30 11/14/23 11:00 11/14/23 11:00 11/14/23 10:00 11/14/23 11:33
I&O
11/13/23 11/14/23 11/15/23
06:59 06:59 06:59
Intake Total 600 / 600
Output Total 900 / 900 700 / 700
Balance -300 / -300 -700 / -700
Physical Exam
-
General: Well Developed and No Apparent Distress
HEENT: Normocephalic, Atraumatic and Moist Mucous Membranes
Respiratory: Clear to Auscultation
Cardiac: Regular Rhythm and S1/S2; Negative Murmur, Rub or Gallop
GI: Soft, Nontender, Nondistended, Normal Bowel Sounds and Other (PD catheter noted.); Negative Organomegaly
Rectal: Deferred by Provider
Musculoskeletal: No Clubbing, No Cyanosis and No Edema
Skin: Negative Rash
Neuro: Awake and No Motor Deficits
Psych: Confused
[2023-11-14 12:47] LABS: Glucose - Point of Care 184 mg/dl (70-99)
--- NOTE | 2023-11-14 13:26 | CON.NEURO4 ---
Consultation - Neurology 4
-
CONSULTING PHYSICIAN: Josie Levy
REFERRING PHYSICIAN: Hospitalist Dr Eugene
DICTATED BY: Josie Levy
DATE/TIME OF REQUEST: 11/14/22
DATE/TIME OF CONSULTATION: 11/14/22
Reason for Consultation: Encephalopathy, abnormal movements
History of Present Illness:
Patient is a 63-year-old man with a past medical history of end-stage renal disease on peritoneal dialysis, hypertension, diabetes, peripheral vascular disease, coronary artery disease presenting to hospital with lower extremity edema, confusion.
had reported intermittent confusion for the past couple of weeks. Patient seem to have been sometimes forgetting to do dialysis which he ordinarily does by himself. Nephrology has seen him and then he has been restarted on peritoneal dialysis.
Confusion has been noted since hospitalization along with abnormal movements that seem to been more frequent since admission. Discussing with nursing the abnormal and seem to be very brief short movements involving the trunk and bilateral limbs.
He is also to be aggravated with any particular posture or any obvious provoking or alleviating factors.
BUN in the 70-80's range here. MRI brain negative for any acute abnormality. No previous history of any seizures.
Past Medical History: ESRD on Peritoneal dialysis, hypertension, obesity, peripheral arterial disease, hyperlipidemia, insulin dependent diabetes mellitus, depression
Surgical History: PD catheter, bilateral carotid endarterectomy, cholecystectomy, CABG
Family History: Non-contributory
Social History: and lives with his , no tobacco or alcohol
Allergies: No known drug allergies
Review of Symptoms:
Patient denies any fever, headache, chest pain, shortness of breath, GI or symptoms.
Physical Exam:
Middle-age man no overt distress obese, no trauma to the head or neck. Abdomen is obese soft nontender there is 1+ pitting bilateral edema present. No rash.
Neurologic Examination:
Patient is awake and alert, he is inattentive, he is able to say his name his 's name and his date of but otherwise is slow in his responses, will obey one-step commands intermittently, attempting to count to 10 he will drift off at around
the number 8.
Show pupils 3 mm equal round react light bilaterally visual quiñonez intact bilaterally extraocular moods are full, resting gaze preference is midline, there is no ptosis, smile symmetric, minimal dysarthria is present
With the arms raised the patient shows asterixis with collapse of muscle tone bilaterally in the arms as well as in the wrists. Shoulder abduction arm flexion 4+/5 bilaterally hip flexion knee extension ankle dorsiflexion plantarflexion 4/5
bilaterally
Sensation shows decreased to light touch and vibration distally bilaterally
Reflexes absent throughout
No ataxia or dysmetria on finger-nose testing bilateral
Gait examination deferred
Neuro Imaging: MRI brain no acute abnormality
Impressions
1. Abnormal movements are highly likely to be myoclonus, patient also demonstrates asterixis. Given BUN to 70s to 80s the patient's abnormal movements and confusion are very likely due to metabolic abnormalities of renal dysfunction. Suspicion
for epileptic seizure is lower.
2. CKD on peritoneal dialysis with some concern for missed PD
3. Hypertension
4. Diabetes
5. CAD
6. PAD
7. Bilateral carotid endarterectomy
Recommendations:
1. Check greater than 1 hour EEG I feel would be acceptable to wait until tomorrow
2. Continue following renal dysfunction and nephrology recommendations, expect mental status and has myoclonus and asterixis will improve if kidney function improved
3. Discontinue gabapentin as needed as this medication can provoke and/or worsen myoclonic. Would also avoid pregabalin in the meantime which can also reduce myoclonus.
4. Minimize sedating medications, avoid anticholinergics
5. Not going to recommend any new anticonvulsants at this time
Will follow
Discussed patient care with: Patient, nursing, hospitalist
[2023-11-14] MEDS: NOVOLOG FLEXPEN-LOW RESISTANCE 1 UNITS SC (13:42)
--- NOTE | 2023-11-14 17:33 | PTCARENOTE ---
Rec'd pt this AM confused, lethargic, jerking hand and leg movements requiring assistance to feed. Able to resopnd appropriately at times but often with confused answers. By approx 2pm this afternoon, pt much more oriented with more strength in
hands, less jerking movement. less sleepy and lethargic. Able to make needs known, oriented conversation with RN and . Stating he feels much more oriented and less confused as well. vital signs stable.
[2023-11-14 17:41] LABS: Glucose - Point of Care 233 mg/dl (70-99)
[2023-11-14] MEDS: COUMADIN 4 MG PO (17:58)
[2023-11-14] MEDS: NOVOLOG FLEXPEN-LOW RESISTANCE 2 UNITS SC (18:05)
--- NOTE | 2023-11-14 20:34 | PTCARENOTE ---
Addendum entered by Radha Geronimo RN 11/15/23 07:25:
Patient more alert and oriented overnight. Able to eat dinner. Reports a sore throat; prn throat lozenge order received and administered per JAN. Tolerated PD. Tele showing NSR/ST. BPs stable. On room air most of the night; Sp02 89-93%. Occasionally
desats to 88-87%, 2L NC applied this morning. Anuric. Bed alarm set for safety. Call lin within reach.
Original Note:
Cannot verify accuracy of vital signs validated from monitor as this RN was not present.
[2023-11-14] MEDS: ZEBETA 5 MG PO (21:40)
[2023-11-14] MEDS: LIPITOR 40 MG PO (21:41)
[2023-11-14] MEDS: NORVASC 5 MG PO (21:41)
[2023-11-14] MEDS: ANESTHETIC LOZENGE 1 LOZENGE PO (21:54)
[2023-11-14 22:41] LABS: Glucose - Point of Care 243 mg/dl (70-99)
[2023-11-15] VITALS (15 sets, daily range): BP systolic 107–178; BP diastolic 44–134; BMI 31.8
[2023-11-15] MEDS: APRESOLINE IV ×3 (00:03→13:26)
[2023-11-15 04:33] LABS: Hematocrit 30.3 % (39.0-52.0); Hemoglobin 9.7 g/dL (13.0-18.0); Mean Corpuscular Hgb 29.3 pg (27.0-31.0); Mean Corpuscular Volume 91.5 fL (80.0-94.0); Mean Platelet Volume 11.2 fL (7.4-10.4); Platelet Count 131 10^3/uL (130-400); Red Blood Cell Count 3.31 10^6/uL (4.70-6.10); Red Cell Dist. Width 16.2 % (11.5-14.5); White Blood Cell Count 5.4 10^3/uL (4.8-10.8)
[2023-11-15 04:47] LABS: INR 2.14; PT 24.3 Sec (11.4-14.6)
[2023-11-15 04:55] LABS: Blood Urea Nitrogen 63 mg/dl (9-20); Calcium 8.2 mg/dl (8.4-10.2); Carbon Dioxide 26 mmol/L (22-30); Chloride 100 mmol/L (98-107); Estimated Creatinine Clearance 7 ml/min; Glucose 291 mg/dl (70-99); Potassium 4.2 mmol/L (3.5-5.1); Sodium 133 mmol/L (135-145); eGFR 4.63
[2023-11-15] MEDS: APRESOLINE 10 MG IV ×2 (06:14→10:45)
[2023-11-15] MEDS: ANESTHETIC LOZENGE 1 LOZENGE PO ×2 (06:14→21:36)
--- NOTE | 2023-11-15 07:26 | W.PN.NEURO.1 ---
Today's Communication / Plan
-
-Withhold any gabapentin or pregabalin for now which can provoke myoclonus, can restart the PRN gabapentin upon discharge with improving renal and mental status
-EEG reviewed
-No need for anti-seizure medications
-Follow renal dysfunction, on peritoneal dialysis, nephrology help appreciated
-Minimize sedating medications
-No changes to home aspirin
-Goal normoglycemia
-Neurologic checks, NIH scales not needed
Will follow as needed call with questions and concerns
Neuro Assessment/Plan
Assessment
63-year-old male with a past medical history of end-stage renal disease on peritoneal dialysis, coronary artery disease and peripheral arterial disease presented to hospital with confusion worse over the past couple of days but duration at least a
few weeks.
Patient noted to have abnormal movements which are highly likely to be myoclonus.
Patient demonstrates asterixis as well as confusion disorientation and inattentiveness on examination. No focal neurologic deficit.
MRI brain negative for any acute abnormality
BUN range in the 70 to 80s here
Patient may have had some missed peritoneal dialysis sessions at home which probably explains confusion, which then led to him having inadequate or missed sessions compounding the problem
Very likely patient's confusion is a toxic metabolic encephalopathy due to current renal dysfunction which is also causing myoclonic movements and asterixis
Subjective/Objective
Subjective Data
Date of Service: November 15, 2023
No acute events, patient remains mildly confused, denies headache or pain, feels he is more clear and improved with mental status, conversation with yesterday much better
Objective Data
Vital Signs
Temp Pulse Resp BP Pulse Ox
98.3 F 74 23 154/91 94
11/15/23 04:58 11/15/23 06:00 11/15/23 06:00 11/15/23 06:00 11/15/23 06:00
Lab Results
11/15/23 04:14
11/15/23 04:14
PT 24.3 Sec (11.4-14.6) H 11/15/23 04:14
INR 2.14 11/15/23 04:14
Sodium 133 mmol/L (135-145) L 11/15/23 04:14
Potassium 4.2 mmol/L (3.5-5.1) 11/15/23 04:14
BUN 63 mg/dl (9-20) H 11/15/23 04:14
Glucose 291 mg/dl (70-99) H 11/15/23 04:14
Calcium 8.2 mg/dl (8.4-10.2) L 11/15/23 04:14
Hpw-H-Hnbsvhtmcyv Pept > 24260 pg/ml 11/12/23 13:11
LDL Cholesterol, Calc 51 mg/dl 11/13/23 06:09
Patient Allergies
No Known Allergies Allergy (Verified 10/15/23 11:53)
Review of Systems
-
Unable to obtain full review of systems at this time due to: Other
History Source: Patient
All other systems: Reviewed and negative
Constitutional: No Symptoms
EENT: No Symptoms Reported
Respiratory: No Symptoms
Cardiac: No Symptoms
Abdomen/GI: No Symptoms
Genitourinary: No Symptoms
Musculoskeletal: No Symptoms
Skin: No Symptoms
Neuro: Speech Problem and See existing Neuro Note
Endocrine: No Symptoms
Hematologic / Lymphatic: No Symptoms
Allergy / Immunology: No Symptoms
Physical Exam
-
General: No Apparent Distress, Comfortable and Appears Chronically Ill
Eyes: No Ptosis
HEENT: Normocephalic and Atraumatic
Neck: No Bruits Bilaterally
Respiratory: Clear to Auscultation
Cardiac: Regular Rhythm
GI: Soft and Non-tender
Skin: Unremarkable
Extremities: No Clubbing
Psych: Confused; Negative Agitated or Intact Judgement/Insight
Extended Neurological Exam
Attention Span & Concentration: Other (Wide awake and alert, more responsive than 11/14, can't name months of year backwards but can do so forwards until he gets to March and then unable to do so correctly, improved mental status compared to 11/14)
Memory: Reduced
Tremor: Other (Asterixis seen, minimal fine bilateral tremor of hands with arms held up and outstretched posture)
Involuntary Movement: Asterixis (Asterixis with arms and wrists held up in the air bilaterally)
Speech: Negative Expressive Aphasia, Receptive Aphasia or Dysarthric
Cranial Nerve II: Left Eye: Pupillary Reactivity Unremarkable, Pupillary Size Unremarkable and Visual Gan Intact
Cranial Nerve II: Right Eye: Pupillary Reactivity Unremarkable, Pupillary Size Unremarkable and Visual Gan Intact
Cranial Nerve VII: Facial Symmetry: Normal Facial Symmetry
Muscle Strength, Overall: Full Throughout
Muscle Bulk & Tone: Bulk Unremarkable
Pronator Drift: No Drift in Upper Extremities
Deep Tendon Reflexes: Absent Throughout
Coordination: Fimjfz-bkpc-iccizy Testing Unremarkable
Modified [place] Score (MRS)
-
MRS Score:
Data Reviewed
-
CT Head: Report Reviewed and Image Reviewed
MRI Head: Report Reviewed and Image Reviewed
EEG: Ordered and Pending
[2023-11-15 07:57] LABS: Glucose - Point of Care 302 mg/dl (70-99)
[2023-11-15] MEDS: PHOSLO 667 MG PO ×3 (09:06→18:06)
[2023-11-15] MEDS: ZEBETA 5 MG PO (09:06)
[2023-11-15] MEDS: NOVOLOG FLEXPEN-LOW RESISTANCE 4 UNITS SC (09:06)
[2023-11-15] MEDS: PLETAL 100 MG PO ×2 (09:09→21:31)
[2023-11-15] MEDS: ASPIR LOW (ENTERIC COATED) 81 MG PO (09:09)
[2023-11-15] MEDS: NORVASC 5 MG PO ×2 (09:09→21:32)
[2023-11-15] MEDS: ZOLOFT 100 MG PO (09:09)
[2023-11-15] MEDS: PROTONIX 40 MG PO (09:09)
[2023-11-15] MEDS: MAG-TAB SR 84 MG PO ×2 (09:09→21:32)
[2023-11-15] MEDS: LANTUS 0.299999999999999989 UNITS SC (09:09)
[2023-11-15] MEDS: ZETIA 10 MG PO (09:10)
[2023-11-15] MEDS: ROCALTROL 0.25 MCG PO (09:12)
[2023-11-15] MEDS: NOVOLOG FLEXPEN 28 UNITS SC (09:18)
--- NOTE | 2023-11-15 09:26 | W.PN.NEPH.PH ---
Today's Communication / Plan
-
PD RX provided
Assessment/Plan
-
Assessment
-ESRD/PD
-volume overload
-CHF
-PAD
-HTN
-edema
-CAD/CABG
-DM2
Plan
-PD ordered, all 4.25%, 2L q4h for now as he needs better UF
-weights down, CHF was noted on CXR
-hold K
-await echo
-hydralazine ATC
-
-
Date of Service: November 15, 2023
CC / HPI / ROS
-
Chief Complaint:
ESRD
History of Present Illness:
PD with modest UF, but only with 4.25%
PD in progress
BP better controlled
K better
remains on supplemental O2
Review of Systems:
on supplemental O2
feels out of sorts
no CP
Labs
-
Labs:
WBC 5.4 10^3/uL (4.8-10.8) 11/15/23 04:14
RBC 3.31 10^6/uL (4.70-6.10) L 11/15/23 04:14
Hgb 9.7 g/dL (13.0-18.0) L 11/15/23 04:14
Hct 30.3 % (39.0-52.0) L 11/15/23 04:14
Plt Count 131 10^3/uL (130-400) 11/15/23 04:14
Sodium 133 mmol/L (135-145) L 11/15/23 04:14
Potassium 4.2 mmol/L (3.5-5.1) 11/15/23 04:14
Chloride 100 mmol/L (98-107) 11/15/23 04:14
Carbon Dioxide 26 mmol/L (22-30) 11/15/23 04:14
BUN 63 mg/dl (9-20) H 11/15/23 04:14
Creatinine 11.2 mg/dL (0.7-1.3) H* 11/15/23 04:14
eGFR 4.63 11/15/23 04:14
Glucose 291 mg/dl (70-99) H 11/15/23 04:14
Calcium 8.2 mg/dl (8.4-10.2) L 11/15/23 04:14
Qbn-X-Ucakgoipeyn Pept > 30356 pg/ml 11/12/23 13:11
Albumin 2.7 g/dl (3.5-5.0) L 11/12/23 13:11
Physical Exam
-
Vital Signs:
Vital Signs
Temp Pulse Resp BP Pulse Ox
98.3 F 75 23 148/77 94
11/15/23 04:58 11/15/23 09:09 11/15/23 06:00 11/15/23 09:09 11/15/23 06:00
Cardiovascular:: Regular rate and rhythm
Respiratory:: Bilateral: Coarse
Lung Excursion:: Normal
Abdomen:: Nontender and Soft
Bowel Sounds:: Normal
Extremity Edema:: +1: Bilateral:
Sweeney Catheter: No
--- NOTE | 2023-11-15 09:34 | W.PN.UPDATE ---
Update Note
Progress Note Update
PD note
4.25% q4h 2Liter exchanges
--- NOTE | 2023-11-15 10:42 | EEG.RPT ---
Electroencephalogram Report
Recording
Date of EE11/15/23
Type of EEG: Routine
Length of EEG recordin minutes
Patient Status: Inpatient
Recording Conditions: Awake and Drowsy
Photic Stimulation Performed: No
Hand Dominance: Unknown
Report
LESS THAN 1 HOUR REPORT
METHODS:
A 21 channel digitized electroencephalogram (EEG) was performed in the [facility]. The 10/20 international system of electrode placement was used with ECG and lateral/vertical eye movements recorded. Study was 27 minutes
long.
QUALITY OF STUDY:
Good
ELECTROENCEPHALOGRAPHER IMPRESSION(S):
Background
Medium amplitude
Predominantly theta amplitude
There were no significant asymmetries of background activity noted.
No normal posterior dominant rhythm seen
Sleep
Drowsiness present
Hyperventilation
Not performed
Photic Stimulation
Failed to activate the record
ECG
Normal sinus rhythm
Abnormalities
Mild diffuse slowing, no triphasic waves, no seizures or epileptiform discharges
LESS THAN 1 HOUR EEG INTERPRETATION:
Mildly abnormal EEG for age mild diffuse bihemispheric slowing
CLINICAL CORRELATION:
This study was suggestive of mild diffuse cortical dysfunction without focal abnormality. No seizures were recorded.
Clinical correlation is advised.
--- NOTE | 2023-11-15 10:48 | W.PN.HOSP.TC ---
Today's Communication/Plan
-
Monitor mentation
echo today
EEG
Monitor POC
Assessment / Plan
Assessment / Plan
# Metabolic encephalopathy likely uremic vs? Subclinical seizures patient with right upper and lower extremity intermittent jerking movements
-Head CT with impression of no acute intracranial abnormality noted.Increased soft tissue attenuation in the 0deep subcutaneous tissues adjacent to the outer table of the posterior midline/left paramidline parietal region, raising the possibility of
posttraumatic soft tissue swelling/contusion. Clinical correlation recommended.
-UA negative. Blood cultures in lab negative so far. Afebrile.
-continue to monitor mentation
-MRI brain negative for acute stroke or pathology.
-Ativan has been held. Gabapentin is as needed. 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
-About to undergo EEG
# End-stage renal disease on peritoneal dialysis
#Anasarca 2/2 above
# Acute hypoxic respiratory insufficiency secondary to above
-Nephrology consulted
-Calcitrol, calcium acetate
-Volume removal should help.
-Nephro on board.
# Diabetic foot blister wound
-does not look infectious
-afebrile
-ctm
-wound care consulted
# CHF exacerbation
-BNP 51305
-Chest x-ray with impression of Findings suspicious for mild congestive heart failure.
-Strict SOLIS
-Daily weight
-Fluid restriction.
-ECHO
-nephrology consulted
# Anemia of chronic kidney disease
-Hemoglobin stable at 10.7
-No active bleeding
-Continue to monitor
#Severe R PVD with claudication
#HX of vascular stenting (RLE x 2, LLE x 2)
-s/p angiopathy, right iliac artery,� balloon angioplasty and also status post OR on 06/13 for lysis� removal, SFA stent and external iliac stent
- continue ASA/Statin/cilostazol
-Gabapentin continued
-Coumadin continued 4 mg
-daily PT/INR. INR 2.14
Essential HTN
- continue Norvasc
- continue bisoprolol
- Started on standing hydralazine. May need better blood pressure control regimen if not improved with fluid removal
IDDM
-sliding scale, lantus and pre-meal insulin started
-Restarted on reduced dose of basaglar 30 units at bedtime compared to 60 units as with poor appetite due to mentaiton.
-CHO diet
#HLD
- statin/Zetia
#CAD s/p CABG
- continue ASA/Statin/BB
Depression - continue Zoloft
DVT ppx: coumadin
Code: Full
PT/OT
d/w with nephro- Recommending OP d/w with primary aircraft seat upholsterer if plan to transition to conventional HD.
I spent a total of 53 minutes with the patient or on the floor. More than 50% of this time involved counseling and coordination of care.
Anticipated Discharge: > 48 hours
Subjective/Interval History
-
Date of Service: November 15, 2023
Pt with much clearer mentation today
appetite has improved
about to undergo
Objective Data
-
Labs:
Laboratory Results
11/15/23
04:14
WBC 5.4
Hgb 9.7 L
Hct 30.3 L
Plt Count 131
PT 24.3 H
INR 2.14
Sodium 133 L
Potassium 4.2
Chloride 100
Carbon Dioxide 26
BUN 63 H
Creatinine 11.2 H*
Glucose 291 H
Calcium 8.2 L
Vital Signs:
Vital Signs
Temp Pulse Resp BP Pulse Ox
97.4 F 78 23 142/62 94
11/15/23 07:30 11/15/23 10:45 11/15/23 06:00 11/15/23 10:45 11/15/23 06:00
I&O
11/14/23 11/15/23 11/16/23
06:59 06:59 06:59
Intake Total 600 / 600
Output Total 900 / 900 1999 / 1999 800 / 800
Balance -300 / -300 -2000 / -2000 -800 / -800
Physical Exam
-
General: Well Developed and No Apparent Distress
HEENT: Normocephalic, Atraumatic and Moist Mucous Membranes
Respiratory: Clear to Auscultation
Cardiac: Regular Rhythm and S1/S2; Negative Murmur, Rub or Gallop
GI: Soft, Nontender, Nondistended, Normal Bowel Sounds and Other (PD catheter noted.); Negative Organomegaly
Rectal: Deferred by Provider
Musculoskeletal: No Clubbing, No Cyanosis and No Edema
Skin: Negative Rash
Neuro: Awake, Alert, Oriented and No Motor Deficits
Psych: Calm
--- NOTE | 2023-11-15 11:43 | WOUNDNOTE ---
[facility] RN note: Patient admitted with CHF, acute toxic encephalopathy, anasarca. Patient lives with his .
See H&P for complete history.
PMH: ESRD on HD since 2019, IDDM, PAD, venous stasis, anemia, depression/anxiety, b/l carotid endarterectomy, CABG, LE stents, R SFA stent by Dr. Sweeney 06/2021, patient follows Dr. Sweeney q 6 months.
Wound Location and type/assessment: Patient admitted with: Flat serous and ecchymotic blister R lateral foot r/t edema, diabetes. Bilateral knee dry scabbed abrasions. Trace-+1 LE edema. +Pedal pulses heard via portable Doppler. 06/22/23 arterial
Doppler: multiphasic, R SFA stent patent, mild stenosis L profunda and proximal SFA. Discolored coccyx/jarad/scrotum (appears chronic).
Appetite: on 2 gm sodium,2000 calorie diet, 1200ml/day.
Pressure redistribution devices in place: Centrella Max air. Patient turns self in bed.
Plan: No sting barrier wipe and silicone border foam applied R lateral foot. Heels off bed with air chair cushion. Instructed patient he should remove his compression stockings at bedtime and to ensure his shoes do not apply pressure. He stated he
has slippers at home.
Will confirm orders with hospitalist and discussed with AARTI Barbosa.
Care plan to be updated and will follow as needed.
Note to case management requested for discharge: VN if goes home when discharged.
Recommend follow up at wound care center upon discharge.
[2023-11-15 12:54] LABS: Glucose - Point of Care 90 mg/dl (70-99)
[2023-11-15] MEDS: NOVOLOG FLEXPEN-LOW RESISTANCE SC ×2 (13:01→18:05)
[2023-11-15] MEDS: TYLENOL 650 MG PO (13:26)
[2023-11-15] MEDS: OCEAN, SALINE MIST 2 SPRAYS NASAL (13:28)
[2023-11-15 17:58] LABS: Glucose - Point of Care 141 mg/dl (70-99)
[2023-11-15] MEDS: NOVOLOG FLEXPEN 7 UNITS SC (18:05)
[2023-11-15] MEDS: COUMADIN 4 MG PO (18:06)
[2023-11-15] MEDS: LIPITOR 40 MG PO (21:29)
[2023-11-15] MEDS: ZEBETA 10 MG PO (21:29)
[2023-11-15 21:51] LABS: Glucose - Point of Care 172 mg/dl (70-99)
[2023-11-16] VITALS (20 sets, daily range): BP systolic 93–182; BP diastolic 41–146; PULSE 92; O2SAT 91; BMI 31.6
[2023-11-16 05:58] LABS: Hematocrit 32.8 % (39.0-52.0); Hemoglobin 10.5 g/dL (13.0-18.0); Mean Corpuscular Hgb 29.7 pg (27.0-31.0); Mean Corpuscular Volume 92.7 fL (80.0-94.0); Mean Platelet Volume 12.2 fL (7.4-10.4); Platelet Count 140 10^3/uL (130-400); Red Blood Cell Count 3.54 10^6/uL (4.70-6.10); Red Cell Dist. Width 15.9 % (11.5-14.5); White Blood Cell Count 5.7 10^3/uL (4.8-10.8)
[2023-11-16 06:07] LABS: INR 2.57
[2023-11-16 06:27] LABS: Blood Urea Nitrogen 56 mg/dl (9-20); Calcium 8.3 mg/dl (8.4-10.2); Carbon Dioxide 30 mmol/L (22-30); Chloride 98 mmol/L (98-107); Estimated Creatinine Clearance 8 ml/min; Glucose 248 mg/dl (70-99); Potassium 4.1 mmol/L (3.5-5.1); Sodium 131 mmol/L (135-145)
[2023-11-16 07:59] LABS: Glucose - Point of Care 282 mg/dl (70-99)
[2023-11-16] MEDS: PROTONIX 40 MG PO (08:05)
[2023-11-16] MEDS: NORVASC 5 MG PO ×2 (08:05→19:58)
[2023-11-16] MEDS: ZEBETA 10 MG PO (08:07)
[2023-11-16] MEDS: PHOSLO 667 MG PO ×3 (08:07→19:53)
[2023-11-16] MEDS: ZETIA 10 MG PO (08:08)
[2023-11-16] MEDS: ZOLOFT 100 MG PO (08:08)
[2023-11-16] MEDS: MAG-TAB SR 84 MG PO ×2 (08:09→19:58)
[2023-11-16] MEDS: PLETAL 100 MG PO ×2 (08:09→19:58)
[2023-11-16] MEDS: ASPIR LOW (ENTERIC COATED) 81 MG PO (08:09)
[2023-11-16] MEDS: TYLENOL 650 MG PO ×2 (08:10→19:53)
[2023-11-16] MEDS: OCEAN, SALINE MIST 2 SPRAYS NASAL ×2 (08:11→23:51)
[2023-11-16] MEDS: LANTUS 0.299999999999999989 UNITS SC (08:18)
[2023-11-16] MEDS: NOVOLOG FLEXPEN-LOW RESISTANCE 3 UNITS SC (08:21)
[2023-11-16] MEDS: NOVOLOG FLEXPEN 7 UNITS SC (08:22)
--- NOTE | 2023-11-16 08:54 | W.PN.NEPH.PH ---
Today's Communication / Plan
-
orders provided
Assessment/Plan
-
Assessment
-ESRD/PD
-volume overload
-CHF
-PAD
-HTN
-edema
-CAD/CABG
-DM2
Plan
-PD ordered, all 4.25%, 2L q4h for now as he needs better UF
-weights down, CHF was noted on CXR
-hold K
-echo reviewed and not exciting
-hydralazine ATC
-unfortuately I do not think PD will be a viable option for the patient for much longer, given minimal u/f and clearance, when he is discharged he will need this to be addressed by his nephrologists
-
-
Date of Service: November 16, 2023
CC / HPI / ROS
-
Chief Complaint:
ESRD
History of Present Illness:
PD with modest UF, with 4.25%
PD in progress
BP very labile
K better
Review of Systems:
on supplemental O2
feels out of sorts
no CP
weights unchanged
Labs
-
Labs:
WBC 5.7 10^3/uL (4.8-10.8) 11/16/23 05:32
RBC 3.54 10^6/uL (4.70-6.10) L 11/16/23 05:32
Hgb 10.5 g/dL (13.0-18.0) L 11/16/23 05:32
Hct 32.8 % (39.0-52.0) L 11/16/23 05:32
Plt Count 140 10^3/uL (130-400) 11/16/23 05:32
Sodium 131 mmol/L (135-145) L 11/16/23 05:32
Potassium 4.1 mmol/L (3.5-5.1) 11/16/23 05:32
Chloride 98 mmol/L (98-107) 11/16/23 05:32
Carbon Dioxide 30 mmol/L (22-30) 11/16/23 05:32
BUN 56 mg/dl (9-20) H 11/16/23 05:32
Creatinine 10.5 mg/dL (0.7-1.3) H* 11/16/23 05:32
eGFR 5.00 11/16/23 05:32
Glucose 248 mg/dl (70-99) H 11/16/23 05:32
Calcium 8.3 mg/dl (8.4-10.2) L 11/16/23 05:32
Krv-E-Hdcaonxtwvw Pept > 38940 pg/ml 11/12/23 13:11
Albumin 2.7 g/dl (3.5-5.0) L 11/12/23 13:11
Physical Exam
-
Vital Signs:
Vital Signs
Temp Pulse Resp BP Pulse Ox
98.8 F 79 16 160/119 94
11/16/23 04:02 11/16/23 08:07 11/16/23 06:00 11/16/23 08:07 11/16/23 06:00
Cardiovascular:: Regular rate and rhythm
Respiratory:: Bilateral: CTA
Lung Excursion:: Normal
Abdomen:: Nontender
Bowel Sounds:: Normal
Sweeney Catheter: No
--- NOTE | 2023-11-16 09:09 | W.PN.UPDATE ---
Update Note
Progress Note Update
PD RX:
flow sheets reviewed: u/f usually ~100 to 250cc per exchange
2L q4h 4.25% exchanges
--- NOTE | 2023-11-16 09:31 | PN.CDI ---
CDI
- -
CDI:
Physician Documentation Request
Admit Date: 11/12/23 18:34
Dear Doctor Valorie,
Patient presented to the ED c/o right foot wound, confusion, shortness of breath and swelling.
Patient found to have CHF.
Troponin resulted as follows:
11/12/23 11/13/23
22:28 12:16
Troponin I 0.129 H* 0.090 H*
Based on the above please provide a diagnosis that supports the above lab abnormalities and additional evaluation/ monitoring :
Non VA troponin elevation
Type II VA demand ischemia
Other
Use of terms such as suspected, likely, concern for, or probable (associated with a specific diagnosis that is being evaluated, monitored, or treated as if it exists) are acceptable and can be coded in the inpatient setting, when documented at the
time of discharge.
Thank you,
Evita Weldon RN, BSN
CDI Specialist
tiger text
Please use your independent medical judgment in providing your response.
--- NOTE | 2023-11-16 09:51 | PN.CDI ---
CDI
- -
CDI:
Physician Documentation Request
Admit Date: 11/12/23 18:34
Dear Doctor Valorie,
Patient presented to ED with complaints of right foot wound, confusion, shortness of breath and swelling.
11/12 BNP > 26893 Chest x-ray with impression of Findings suspicious for mild congestive heart failure.
Per H&P patient does not appear to have a history of heart failure.
Hospitalist progress notes state ' CHF exacerbation'
11/15 Echo has a reported EF of 55-60%
Please clarify type and acuity of CHF you are evaluating, treating or monitoring.
Type Acuity
Systolic Acute
Diastolic Chronic
Other Acute on Chronic
Use of terms such as suspected, likely, concern for, or probable (associated with a specific diagnosis that is being evaluated, monitored, or treated as if it exists) are acceptable and can be coded in the inpatient setting, when documented at the
time of discharge.
Thank you,
Evita Weldon RN, BSN
CDI Specialist
tiger text
Please use your independent medical judgment in providing your response.
--- NOTE | 2023-11-16 09:58 | PN.CDI ---
CDI
- -
CDI:
Physician Documentation Request
Admit Date: 11/12/23 18:34
Dear Doctor Valorie,
11/15 Neurology note states 'Very likely patient's confusion is a toxic metabolic encephalopathy due to current renal dysfunction which is also causing myoclonic movements and asterixis'
Hospitalist notes refer to the encephalopathy as 'metabolic encephalopathy likely uremic vs? Subclinical seizures patient with right upper and lower extremity intermittent jerking movements'
In an attempt to clarify potential conflicting documentation, please clarify the etiology of the confusion/altered mental status.
Metabolic Encephalopathy -
Toxic metabolic encephalopathy
Other
Use of terms such as suspected, likely, concern for, or probable (associated with a specific diagnosis that is being evaluated, monitored, or treated as if it exists) are acceptable and can be coded in the inpatient setting, when documented at the
time of discharge.
Thank you,
Evita Weldon RN, BSN
CDI Specialist
tiger text
Please use your independent medical judgment in providing your response.
--- NOTE | 2023-11-16 10:11 | W.PN.HOSP.TC ---
Addendum entered and electronically signed by Rodríguez Eugene MD 11/16/23 15:27:
EKG prolonged QTc. Repeat EKG in the morning and if elevated consider decreasing dose of Zoloft.
Addendum entered and electronically signed by Rodríguez Eugene MD 11/16/23 13:51:
Non NC Troponin elevation in the setting of uncontrolled blood pressure
Acute on chronic HFpEF
Original Note:
Today's Communication/Plan
-
Dispo-adjust insulin.
Monitor blood pressure.
Medically stable otherwise to SNF.
Continue with PD per nephrology.
Assessment / Plan
Assessment / Plan
# Toxic metabolic encephalopathy likely uremia
-Head CT with impression of no acute intracranial abnormality noted.Increased soft tissue attenuation in the 0deep subcutaneous tissues adjacent to the outer table of the posterior midline/left paramidline parietal region, raising the possibility of
posttraumatic soft tissue swelling/contusion. Clinical correlation recommended.
-UA negative. Blood cultures in lab negative so far. Afebrile.
-continue to monitor mentation
-MRI brain negative for acute stroke or pathology.
-Ativan has been held. Gabapentin is as needed. Not on any SEASONING MIXER depressing agents.
-About to undergo EEG
-Mentation seems back to baseline.
# End-stage renal disease on peritoneal dialysis
#Anasarca 2/2 above
# Acute hypoxic respiratory insufficiency secondary to above
-Nephrology consulted
-Calcitrol, calcium acetate
-Volume removal should help.
-Nephro on board.
# Diabetic foot blister wound
-does not look infectious
-afebrile
-ctm
-wound care consulted
# CHF exacerbation
-BNP 23869
-Chest x-ray with impression of Findings suspicious for mild congestive heart failure.
-Strict SOLIS
-Daily weight
-Fluid restriction.
-ECHO noted EF of 55 to 60%. Diastolic function indeterminant.
-nephrology consulted
# Anemia of chronic kidney disease
-Hemoglobin stable at 10.7
-No active bleeding
-Continue to monitor
#Severe R PVD with claudication
#HX of vascular stenting (RLE x 2, LLE x 2)
-s/p angiopathy, right iliac artery,� balloon angioplasty and also status post OR on 06/13 for lysis� removal, SFA stent and external iliac stent
- continue ASA/Statin/cilostazol
-Gabapentin continued
-Coumadin continued 4 mg
-daily PT/INR. INR 2.57
Essential HTN
- continue Norvasc
- continue bisoprolol dose increased to 10 mg twice daily
- Switch to p.o. hydralazine on discharge
IDDM
-sliding scale, lantus and pre-meal insulin started. Increase basal to 40 units and Premeal to 12.
-CHO diet
#HLD
- statin/Zetia
#CAD s/p CABG
- continue ASA/Statin/BB
Depression - continue Zoloft
DVT ppx: coumadin
Code: Full
PT/OT rec SNF case management aware.
d/w with nephro- Recommending OP d/w with primary operations and maintenance supervisor if plan to transition to conventional HD.
I spent a total of 54 minutes with the patient or on the floor. More than 50% of this time involved counseling and coordination of care.
Dispo-adjust insulin. Monitor blood pressure. Medically stable otherwise to SNF. Continue with PD per nephrology.
Anticipated Discharge: Today
Subjective/Interval History
-
Date of Service: November 16, 2023
Patient mentation much improved
On stable room air
Blood pressure improved
Objective Data
-
Labs:
Laboratory Results
11/16/23
05:32
WBC 5.7
Hgb 10.5 L
Hct 32.8 L
Plt Count 140
PT 28.0 H
INR 2.57
Sodium 131 L
Potassium 4.1
Chloride 98
Carbon Dioxide 30
BUN 56 H
Creatinine 10.5 H*
Glucose 248 H
Calcium 8.3 L
Vital Signs:
Vital Signs
Temp Pulse Resp BP Pulse Ox
97.4 F 79 25 160/119 89
11/16/23 07:40 11/16/23 08:07 11/16/23 08:04 11/16/23 08:07 11/16/23 08:04
I&O
11/15/23 11/16/23 11/17/23
06:59 06:59 06:59
Output Total 1999
Balance -1999 -1999 -1999
Physical Exam
-
General: Well Developed and No Apparent Distress
HEENT: Normocephalic, Atraumatic and Moist Mucous Membranes
Respiratory: Clear to Auscultation
Cardiac: Regular Rhythm and S1/S2; Negative Murmur, Rub or Gallop
GI: Soft, Nontender, Nondistended, Normal Bowel Sounds and Other (PD catheter noted.); Negative Organomegaly
Rectal: Deferred by Provider
Musculoskeletal: No Clubbing, No Cyanosis and No Edema
Skin: Negative Rash
Neuro: Awake, Alert, Oriented and No Motor Deficits
Psych: Calm
--- NOTE | 2023-11-16 10:38 | CM ---
Addendum entered by Diana Morales RN 11/16/23 13:36:
PT & OT 11/16; mentation improved, unsteady with walking stick & better with RW, requires assist of 1, recommend skilled rehab. OT; decreased balance, recommends skilled rehab.
14 SNF referrals reviewed- no accepting facilities.
Spoke with [facility]; none of their 20 SNFs accept patients who need PD, as it requires a dedicated nurse.
Case discussed with Dr Eugene; discussed that there are no SNFs that accept PD patients and patient still unsteady on his feet with PT.
Met with patient and spoke with again; both agree to d/c to home in 1-2 days, with VN- no agency preference.
Spoke with [facility], they are able to accept the referral for SN/PT/OT.
Plan home with [facility].
Original Note:
Patient with Dx TME likely uremia, ESRD on PD, Diabetic foot blister wound, CHF exacerbation. Seen by wound care nurse. PT & OT 11/14; requires assist of 2, recommend skilled rehab. Per nurse assessment 11/16 4:00am; confused.
Spoke with patient's Tiffany; the patient resides with his in a 1 story house with 2 MARLENE.
He has been independent in ADLs and ambulates with his SPC and was losing balance at home.
Has been confused/forgetful off and on for the past few weeks, therefore has been doing his PD for him recently.
DME - RW, SPC, glucometer
VN - prior VN but can't remember agency
SNF - none
PCP - Susan Starkey
Pharmacy - [facility] [place]
Discussed short term SNF for rehab and agrees. She thinks patient may be reluctant but will agree. Discussed local SNFs near [place] and provided [facility] ratings- her first choice is [facility] and she agrees to additional SNFs with
good ratings.
Message to Alysa PT & Valarie OT requesting updated therapy notes today.
SNF referrals placed.
Plan follow up after SNF referrals.
[2023-11-16 13:07] LABS: Glucose - Point of Care 177 mg/dl (70-99)
[2023-11-16] MEDS: NOVOLOG FLEXPEN-LOW RESISTANCE 1 UNITS SC (13:56)
[2023-11-16] MEDS: NOVOLOG FLEXPEN 12 UNITS SC (13:57)
[2023-11-16 17:16] LABS: Glucose - Point of Care 78 mg/dl (70-99)
--- NOTE | 2023-11-16 17:24 | PTCARENOTE ---
Addendum entered by Valarie Coto 11/16/23 17:28:
Dr. Eugene notified via TT of fluctuating mental status. No new orders at this time.
Original Note:
Pt AAox3 upon initial assessment this morning and able to hold oriented conversation. Throughout shift, pt mental status fluctuated w/ pt disoriented to place at times. Pt frequently reoriented to time, place, and situation. PD exchanges maintained
Q4H, per order. Bed alarm set for pt safety. Pt refused lunch, but agreeable to ordering dinner. Safe environment maintained.
[2023-11-16] MEDS: NOVOLOG FLEXPEN-LOW RESISTANCE SC (17:39)
[2023-11-16] MEDS: NOVOLOG FLEXPEN SC (17:43)
[2023-11-16] MEDS: COUMADIN 3 MG PO (18:22)
[2023-11-16] MEDS: LOPRESSOR 25 MG PO (19:59)
[2023-11-16] MEDS: LIPITOR 40 MG PO (22:09)
[2023-11-16 22:56] LABS: Blood Urea Nitrogen 53 mg/dl (9-20); Calcium 8.2 mg/dl (8.4-10.2); Carbon Dioxide 30 mmol/L (22-30); Chloride 98 mmol/L (98-107); Estimated Creatinine Clearance 9 ml/min; Glucose 154 mg/dl (70-99); Magnesium 1.6 mg/dl (1.6-2.3); Potassium 3.9 mmol/L (3.5-5.1); Sodium 132 mmol/L (135-145); eGFR 5.64
--- NOTE | 2023-11-16 22:58 | PTCARENOTE ---
Received pt at change of shift pleasant and cooperative eating dinner. Pt noted to have a run of V-tach, BP stable and pt had no complaints. POST TENSIONING IRONWORKER HELPER notified. Stat Mag and BMP ordered and drawn. Pt had his oxygen off and was slower to respond and not
cooperative O2 sat was 88%. Placed back on O2 and mentation improved and O2 sat improved also to 94%. Peritoneal dialysis performed and pt tolerated it well. Pt is more alert and not confused now. Will monitor his O2 and if he removes his
Oxygen.
[2023-11-16] MEDS: MAGNESIUM SULFATE 50 IV (23:37)
[2023-11-17] VITALS (23 sets, daily range): BP systolic 69–186; BP diastolic 22–144; BMI 30.8
[2023-11-17] LABS: Glucose - Point of Care 205 mg/dl (70-99)
--- NOTE | 2023-11-17 00:12 | PTCARENOTE ---
Order written for IV Magnesium and now running in R arm IV site. Pt was up OOB to the bedside commode for a BM, tolerated it well.
[2023-11-17 04:54] LABS: Hemoglobin 10.3 g/dL (13.0-18.0); Mean Corp Hgb Conc. 33.2 g/dL (33.0-37.0); Mean Corpuscular Hgb 30.2 pg (27.0-31.0); Mean Corpuscular Volume 90.9 fL (80.0-94.0); Mean Platelet Volume 12.6 fL (7.4-10.4); Platelet Count 150 10^3/uL (130-400); Red Blood Cell Count 3.41 10^6/uL (4.70-6.10); Red Cell Dist. Width 15.8 % (11.5-14.5); White Blood Cell Count 7.5 10^3/uL (4.8-10.8)
[2023-11-17 05:22] LABS: Blood Urea Nitrogen 55 mg/dl (9-20); Calcium 8.5 mg/dl (8.4-10.2); Carbon Dioxide 29 mmol/L (22-30); Chloride 94 mmol/L (98-107); Estimated Creatinine Clearance 9 ml/min; Glucose 292 mg/dl (70-99); Potassium 3.8 mmol/L (3.5-5.1); Sodium 132 mmol/L (135-145); eGFR 5.94
--- NOTE | 2023-11-17 05:39 | PTCARENOTE ---
Earlier in this shift pt's called and she doesn't want him to be discharged home until his mental status is evaluated. She said he has never been grumpy and mean before. This is a big change according to her. She wants to talk to the doctor
following him today. She wants to bring him home when he is ready, but again, she wants to know why his personality has changed so much. Pt has been uncooperative at times this shift. He refused his heparin SQ at midnight. He was calling out for
his a few times this shift. Reoriented pt to place and time. He complains of discomfort if he is touched or moved. Falls asleep when left alone. He does have a frequent non productive cough.
[2023-11-17 09:13] LABS: Glucose - Point of Care 320 mg/dl (70-99)
[2023-11-17] MEDS: NOVOLOG FLEXPEN 12 UNITS SC ×2 (09:39→13:07)
[2023-11-17] MEDS: NOVOLOG FLEXPEN-LOW RESISTANCE 4 UNITS SC (09:40)
[2023-11-17] MEDS: LANTUS 0.400000000000000022 UNITS SC (09:41)
[2023-11-17] MEDS: PROTONIX 40 MG PO (09:42)
[2023-11-17] MEDS: NORVASC 5 MG PO (09:42)
[2023-11-17] MEDS: LOPRESSOR 25 MG PO (09:43)
[2023-11-17] MEDS: ZETIA 10 MG PO (09:44)
[2023-11-17] MEDS: MAG-TAB SR 84 MG PO (09:44)
[2023-11-17] MEDS: ASPIR LOW (ENTERIC COATED) 81 MG PO (09:44)
[2023-11-17] MEDS: PHOSLO 667 MG PO (09:44)
[2023-11-17] MEDS: ZOLOFT 100 MG PO (09:44)
[2023-11-17] MEDS: PLETAL 100 MG PO (09:46)
--- NOTE | 2023-11-17 09:56 | W.PN.HOSP.TC ---
Today's Communication/Plan
-
Mechanical ventilation, IV antibiotics, cardiac monitoring.
Assessment / Plan
Assessment / Plan
Physical exam:
General: Acutely ill
HEENT: Normocephalic, Atraumatic and Moist Mucous Membranes
Respiratory: Decreased breath sounds bilateral. Crackles in the bases. No wheezes.
Cardiac: Regular Rhythm with extra beats, and S1/S2
GI: Soft, Nontender and Nondistended
Musculoskeletal: No Clubbing, No Cyanosis. Presence of edema
Neuro: Awake alert and oriented prior to Code. Subsequently sedated on the vent.
Psych: Limited judgment and insight prior to code. Unable to assess after code.
A/P:
#Cardiorespiratory arrest
-Code called. V. tach-->TDP-->V Fib-->PEA. CPR abt 3 min and Epinephrine x3. V Fib s/p shock 360J x1--> ROSC achieved.
-IV magnesium ordered earlier but not given yet and was given during the code.
-Twelve-lead EKG with prolonged QTc
-I participated in the code along with the rest of the team.
-Discussed with cardiology team at bedside
-Updated over the phone today--> understanding of critical situation, and will also like to continue full medical efforts at this point in time.
-Electrical Engineer Mep consulted
-Avoid QTc prolonging medications at all cost.
-Might need cardiac catheterization but will defer to cardiology
-Plan for transthoracic echocardiogram
#Acute hypoxic respiratory failure
-In the morning he was on 6 L of oxygen
-Obtained chest x-ray today on 11/17
-Start empirically on IV Zosyn and vancomycin obtain blood cultures prior.
-Patient deteriorated and went into cardiac arrest and now on mechanical ventilation
-Intubated by anesthesia during code.
-Pulmonary tripper consulted
-Might require hemodialysis for effective volume, unless nephrology feels PD would be enough
# Concerns for sepsis
-Blood cultures obtained prior to antibiotics
-Zosyn and vancomycin
-Pressors as needed
-Follow-up hemodynamic
# Toxic metabolic encephalopathy
-Multifactorial in nature with uremia concerns and now possible sepsis contributing and hypoxia at this point
-Head CT with impression of no acute intracranial abnormality noted.Increased soft tissue attenuation in the 0deep subcutaneous tissues adjacent to the outer table of the posterior midline/left paramidline parietal region, raising the possibility of
posttraumatic soft tissue swelling/contusion. Clinical correlation recommended.
-UA negative. Blood cultures in lab negative so far. Afebrile.
-continue to monitor mentation
-MRI brain negative for acute stroke or pathology.
-Ativan has been held. Gabapentin is as needed. Not on any NURSE LDR depressing agents.
-About to undergo EEG
-Mentation seems back to baseline.
# End-stage renal disease on peritoneal dialysis
#Anasarca 2/2 above
# Acute hypoxic respiratory insufficiency secondary to above
-Nephrology consulted
-Calcitrol, calcium acetate
-Volume removal should help.
-Nephro on board.
# Diabetic foot blister wound
-does not look infectious
-afebrile
-ctm
-wound care consulted
# CHF exacerbation
-BNP 31172
-Chest x-ray with impression of Findings suspicious for mild congestive heart failure.
-Strict SOLIS
-Daily weight
-Fluid restriction.
-ECHO noted EF of 55 to 60%. Diastolic function indeterminant.
-nephrology consulted
# Anemia of chronic kidney disease
-Hemoglobin stable at 9.8
-No active bleeding
-Continue to monitor
#Severe R PVD with claudication
#HX of vascular stenting (RLE x 2, LLE x 2)
-s/p angiopathy, right iliac artery,� balloon angioplasty and also status post OR on 06/13 for lysis� removal, SFA stent and external iliac stent
- continue ASA/Statin/cilostazol
-Gabapentin continued
-Coumadin continued 4 mg
-daily PT/INR. INR 3.26
Essential HTN
- continue Norvasc
- continue bisoprolol dose increased to 10 mg twice daily
- Switch to p.o. hydralazine on discharge
IDDM
-sliding scale, lantus and pre-meal insulin started. Increase basal to 40 units and Premeal to 12.
-CHO diet
#HLD
- statin/Zetia
#CAD s/p CABG
- continue ASA/Statin/BB
Depression - Discontinue Zoloft since it can prolong QTc
DVT ppx: coumadin
Code: Full
Total Critical Care Time 55 minutes. I was immediately available to the patient and staff. I personally examined, reviewed labs, diagnostic images/reports, interpretations, treatment plans, discussed patient care with other providers and family
or caregivers (if patient is unable to make decisions), entered orders as appropriate and documented the medical record.
Anticipated Discharge: > 48 hours
Subjective/Interval History
-
Date of Service: November 17, 2023
Patient seen and evaluated earlier this morning. Upon my evaluation patient frail hypoxic with hallucinations. He is short of breath but denies chest pain.
Objective Data
-
Labs:
Laboratory Results
11/16/23 11/16/23 11/16/23
22:25 22:25 22:25
WBC
Hgb
Hct
Plt Count
Sodium Cancelled 132 L
Potassium Cancelled 3.9
Chloride Cancelled
Carbon Dioxide
BUN
Creatinine
Glucose
Calcium
11/16/23 11/16/23 11/16/23
22:25 22:25 22:25
WBC
Hgb
Hct
Plt Count
Sodium
Potassium
Chloride 98
Carbon Dioxide Cancelled 30
BUN Cancelled 53 H
Creatinine Cancelled
Glucose
Calcium
11/16/23 11/16/23 11/16/23
22:25 22:25 22:25
WBC
Hgb
Hct
Plt Count
Sodium
Potassium
Chloride
Carbon Dioxide
BUN
Creatinine 9.5 H*
Glucose Cancelled 154 H
Calcium Cancelled 8.2 L
11/17/23
04:46
WBC 7.5
Hgb 10.3 L
Hct 31.0 L
Plt Count 150
Sodium 132 L
Potassium 3.8
Chloride 94 L
Carbon Dioxide 29
BUN 55 H
Creatinine 9.1 H*
Glucose 292 H
Calcium 8.5
Vital Signs:
Vital Signs
Temp Pulse Resp BP Pulse Ox
99.6 F 83 23 147/71 90
11/17/23 03:34 11/17/23 09:43 11/17/23 06:27 11/17/23 09:43 11/17/23 06:27
I&O
11/16/23 11/17/23 11/18/23
06:59 06:59 06:59
Intake Total 590 / 590
Output Total 1999
Balance -1999 / -1460 / -1460
Review of Systems
-
All other systems: Reviewed and negative
--- NOTE | 2023-11-17 09:59 | PTCARENOTE ---
Rec'd pt this AM. more confused and requiring 6L O2 NC. Notififed Dr. Yanez. CXR ordered.
[2023-11-17] MEDS: ROCALTROL 0.25 MCG PO (11:00)
[2023-11-17 12:48] LABS: Glucose - Point of Care 276 mg/dl (70-99)
[2023-11-17] MEDS: PHOSLO PO (13:07)
[2023-11-17] MEDS: NOVOLOG FLEXPEN-LOW RESISTANCE SC ×2 (13:07→17:08)
[2023-11-17 13:08] LABS: COVID-19 Antigen Negative (Negative)
[2023-11-17] MEDS: MAGNESIUM SULFATE 50 IV (13:13)
[2023-11-17] MEDS: ZOSYN 50 IV ×2 (13:17→21:32)
--- NOTE | 2023-11-17 13:25 | PHA.VAN.IN ---
Assessment
- Assessment
Renal Function: Other (Peritoneal Dialysis 2L exchanges Q4H)
Concomitant Antimicrobials: piperacillin/tazobactam
Plan
- Plan
Initial / Loading Dose: 2000mg - administration pending
Maintenance Regimen: dosing by level
Monitoring: random 11/18 0600
Typically, re-dose every 3-7 days in peritoneal dialysis
Will obtain baseline level tomorrow to attempt to assess half-life
Pharmacokinetics Vancomycin I
- -
Patient Age: 63
Patient Sex: Male
Vancomycin Day #: 1
Indication: Pulmonary/Respiratory
Requesting Provider: Dr. Yanez
Pertinent Antimicrobial Allergies:
NKDA
Height / Weight:
Height 5 ft 8 in
Actual Weight 91.8 kg
Pertinent Past Medical History: BMI ~31, Peritoneal Dialysis, Diabetes
- Vital Signs / Lab Results
Temp Pulse Resp BP Pulse Ox
97.4 F 83 16 147/71 94
11/17/23 07:35 11/17/23 09:43 11/17/23 09:41 11/17/23 09:43 11/17/23 09:41
Lab Results - Hematology
11/15/23 11/16/23 11/17/23
04:14 05:32 04:46
WBC 5.4 5.7 7.5
Lab Results - Chemistry
11/15/23 11/16/23 11/16/23
04:14 05:32 22:25
BUN 63 H 56 H Cancelled
Creatinine 11.2 H* 10.5 H*
Estimated Creat Clear 7 8
11/16/23 11/16/23 11/16/23
22:25 22:25 22:25
BUN 53 H
Creatinine Cancelled 9.5 H*
Estimated Creat Clear Cancelled 9
11/17/23
04:46
BUN 55 H
Creatinine 9.1 H*
Estimated Creat Clear 9
Microbiology Results
11/12/23 13:11 Blood Culture - Final
Blood/Venous No Growth - Final Report
--- NOTE | 2023-11-17 13:30 | PTCARENOTE ---
Pt with episode of long run of V Tach. remains confused, some hallucinations, on 6L NC O2 sat 95%. Dr. Yanez at bedside. Orders placed. Mag rider infusing, blood cultures sent. Dr. Fields updated as well at bedside. CXR completed. ABX started for
Pneumonia. bed alarm in place.
--- NOTE | 2023-11-17 13:55 | CON.CAR ---
Addendum entered and electronically signed by Stefanie Myers MD 11/17/23 17:05:
I saw and examined the patient.
The Supervisor Forming And Tempering's note was reviewed and I agree with the note.
Comment: Briefly, patient is a 63-year-old morbidly obese gentleman with significant comorbid conditions including end-stage renal disease on peritoneal dialysis, coronary artery disease status post CABG at [facility] in 1995, no records available here,
chronic warfarin therapy for peripheral artery disease, significant PAD status post femoropopliteal bypass in 2015, right CEA in March 2019, left CEA in July 2019, right SFA prior to admission in 2020, type 2 diabetes mellitus who presented
initially after having missed multiple peritoneal dialysis treatments in the setting of ongoing confusion reportedly at home found to be dyspneic and anasarcic in the setting of missed PD. He was resumed on peritoneal dialysis and confusion had
intermittently gotten somewhat better however had recurred since yesterday. During this setting with some electrolyte abnormalities he was noted to have some short runs of nonsustained VT and this afternoon was found to have sustained ventricular
tachycardia, polymorphic requiring he be coded with return of spontaneous circulation after 1 round of epinephrine and 1 defibrillator shock.
Upon review of multiple ECGs, it appears that the QTc had been prolonging with this afternoon it being 543 ms. Throughout this admission, based on records and by report patient did not complain of any anginal symptoms. His cardiac history is
unclear given we do not have any records here. He was intubated urgently during his cardiac arrest and is currently satting 97% on 100% FiO2 and 8 of PEEP. Lactate is elevated at 3.6. Electrolytes are within normal limits. proBNP elevated at
27,000. Maps are in high 50s low 60s, Levophed recently placed on hold for now. He is sedated and intubated using fentanyl and propofol.
ECG post arrest showed global ischemia with isolated ST elevation in aVR with diffuse ST depressions and prolonged QTc.
Recommendations:
1. Patient is a challenging case in the setting of multiple significant comorbid conditions. I presume the event was driven by prolonging QTc. Recommend avoiding any QT prolonging medications. Discussed with pharmacy about discontinuing propofol
and switching to an alternative sedative.
2. In the setting of a globally ischemic EKG, cannot rule out underlying cardiac ischemia however this could also be a post code ischemia in the setting of borderline blood pressures and significant decompensated heart failure and pulmonary edema.
In the setting of unclear baseline mental status given ongoing recent confusion and significant comorbid conditions and supratherapeutic INR, holding off on urgent/emergent heart catheterization however we will plan to repeat EKG, trend troponins,
recheck limited echocardiogram. Recent echocardiogram from November 15 showing normal biventricular function without significant valvular disease. CABG graft anatomy is not known.
3. Trend lactates and aim for maps over 65mmHg.
4. Wean mechanical ventilation as tolerated. Discussed with critical care medicine given significant oxygen requirement in the setting of pulmonary edema, may need to consider urgent hemodialysis given patient reportedly does not make any urine to
allow for ultrafiltration.
Overall guarded prognosis.
Stefanie Myers MD, FAC, [facility]
Original Note:
Consultation
Consultation Request
Date/Time Consultation Requested: 11/17/23
Date/Time Consultation Performed: 11/17/23
Requesting Provider: Dr. Yanez
Performing Provider: Dr. Myers
Reason for Consultation: In-hospital cardiac arrest
Medical History
-
History of Present Illness:
Patient came to [facility] on 11/12/23 with increasing SOB after he had trouble keeping up with his home PD treatments and he was admitted with acute HF and volume overload, cardiology is now consulted after a VT arrest today. Patient was admitted 11/12/23
with anasarca, SOB and failing PD at home. Patient lives in [place] and follows with a senior quality control technician at [facility], but came to for care. Patient and also noted increasing somnolence and some confusion which overall seemed to be contributing to
trouble with maintaining PD treatments at home resulting in weight gain and SOB. Weight was up at least 10 lbs on admission. Patient was admitted and seen by nephrology at , PD was restarted in the hospital. Patient had an echo 11/15/23 that showed
a preserved EF. There is a h/o CABG at an outside hospital in 1995, primary psychiatry teacher unknown and patient has never seen cardiology at before. Patient with hyperkalemia on admission that resolved with PD. QT was prolonged to 486 ms on ECG on
admission 11/12/23 in the setting of RBBB, then 522 ms 11/16/23, then 543 ms this afternoon at 1330. Patient with a run of VT and confusion noted by nursing around 1330 today and magnesium rider ordered. Last magnesium level was 1.6 on 11/16/23. Patient
then had sustained VT and cardiac arrest prompting code 9. Cardiology arrived with rest of the team. Patient undergoing CPR and received Epi x1 and shocked x1 with ROSC. Patient intubated by anesthesia team.
PMH:
ESRD on PD
CAD s/p CABG outside hospital 1995
Anasarca
PAD
fem pop bypass 2015
right CEA at [facility] 03/2019
left CEA at [facility] 07/2019
right SFA HYDRO OPERATOR 2020
Chronic warfarin OAC for PAD
DM 2
Past Medical History
Past Medical History: Other (in HPI)
Past Surgical History: Cardiac (ABG [facility] 1995), Cholecystectomy and Other (R CEA 03/2019, L CEA 07/2019, HYDRO OPERATOR LLE 09/2012, R SFA stent 04/2016)
Social History
Tobacco: Former Smoker
Alcohol: None
Drug: None
Personal:
Living: With Family
Family History
Family History: CAD and Other (CKD)
Allergies / Home Medications
Allergy/AdvReac Type Severity Reaction Status Date / Time
No Known Allergies Allergy Verified 10/15/23 11:53
Medication Instructions Recorded Confirmed Type
atorvastatin 40 mg tablet 40 mg PO HS High Cholesterol 06/12/21 11/12/23 History
cilostazol 100 mg tablet 100 mg PO BID Blood Clot 06/12/21 11/12/23 History
Prevention/Tx
ergocalciferol (vitamin D2) 1,250 50,000 units PO PRESLEY Supplement 06/12/21 11/12/23 History
mcg (50,000 unit) capsule
ezetimibe 10 mg tablet 10 mg PO DAILY High Cholesterol 06/12/21 11/12/23 History
pantoprazole 40 mg tablet,delayed 40 mg PO DAILY Gastrointestinal 06/12/21 11/12/23 History
release Issue
sertraline 50 mg tablet 100 mg PO DAILY Mental 06/12/21 11/12/23 History
Health/Anxiety
acetaminophen 325 mg tablet 650 mg PO DAILYPRN PRN mild pain 10/15/23 11/12/23 History
(Tylenol)
amlodipine 5 mg tablet 5 mg PO BID Blood Pressure 10/15/23 11/12/23 History
bisoprolol fumarate 5 mg tablet 5 mg PO BID Blood Pressure 10/15/23 11/12/23 History
calcitriol 0.25 mcg capsule 0.25 mcg PO MOWEFR Supplement 10/15/23 11/12/23 History
calcium acetate 668 mg (169 mg 668 mg PO MEALS Supplement 10/15/23 11/12/23 History
calcium) tablet
gabapentin 100 mg capsule 100 mg PO BIDPRN PRN nerve pain 10/15/23 11/12/23 History
insulin aspart U-100 100 unit/mL 28 unit SC BID Diabetes 10/15/23 11/12/23 History
(3 mL) subcutaneous pen
insulin glargine 100 unit/mL (3 60 unit SC DAILY Diabetes 10/15/23 11/12/23 History
mL) subcutaneous pen (Basaglar
KwikPen U-100 Insulin)
magnesium oxide 400 mg PO BID Supplement 10/15/23 11/12/23 History
melatonin 3 mg tablet 3 mg PO HSPRN PRN sleep 10/15/23 11/12/23 History
oxycodone-acetaminophen 5 mg-325 1 tab PO DAILYPRN PRN severe pain 10/15/23 11/12/23 History
mg tablet
potassium chloride 10 mEq 10 meq PO HS Electrolyte Repletion 10/15/23 11/12/23 History
tablet,extended release
warfarin 4 mg tablet 4 mg PO DANNY@1800 Blood 10/15/23 11/12/23 History
Clot Prevention/Tx
aspirin 81 mg tablet,delayed 81 mg PO DAILY Blood Clot 11/12/23 11/12/23 History
release Prevention/Tx
lorazepam 1 mg tablet 1 mg PO DAILY PRN anxiety 11/12/23 11/12/23 History
Review of Systems
-
Unable to obtain full review of systems at this time due to: Patient Intubation (just intubated as part of code 9 response)
Physical Exam
Vital Signs
Temp Pulse Resp BP Pulse Ox
97.4 F 83 16 147/71 94
11/17/23 07:35 11/17/23 09:43 11/17/23 09:41 11/17/23 09:43 11/17/23 09:41
GEN: Intubated and sedated
HEENT: MMM
LUNGS: Intubated and bagged. Coarse BS throughout without audible wheeze
CV: Reg, S1/S2, no murmur
ABD: soft, BS+, NT, ND
EXT: No clubbing, cyanosis, lesions or edema B/L
NEURO: Gross non-focal
SKIN: Warm, dry and pink. No rash
Lab Results
11/17/23 04:46
11/17/23 04:46
Troponin I Cancelled 11/13/23 14:30
Hpo-I-Yewqxrkoifn Pept > 40254 pg/ml 11/12/23 13:11
Impression / Plan
-
PCP: Dr. Susan Starkey
Cardiology: Unknown
Nephrology: [facility]
Vascular surgery: Dr. Sweeney
Impression:
In-hospital cardiac arrest 11/17/23
VT arrest
s/p shock x1 and Epi x1 11/17/23
Prolonged QT
Admitted with TME, uremia and anasarca 11/12/23
ESRD on PD
failing at home PD due to cognitive dysfunction
Elevated Troponin
CAD s/p CABG outside hospital 1995
Acute HFpEF
Anasarca
PAD
fem pop bypass 2015
right CEA at [place] 03/2019
left CEA at [facility] 07/2019
right SFA HYDRO OPERATOR 2020
Chronic warfarin OAC for PAD
DM 2
Echo 11/15/23: EF 55-60%, trace MR
Plan:
-Patient came to [facility] on 11/12/23 with increasing SOB after he had trouble keeping up with his home PD treatments and he was admitted with acute HF and volume overload, cardiology is now consulted after a VT arrest today. Patient was admitted 11/12/23
with anasarca, SOB and failing PD at home. Patient lives in [place] and follows with a senior quality control technician at [facility], but came to for care. Patient and also noted increasing somnolence and some confusion which overall seemed to be contributing to
trouble with maintaining PD treatments at home resulting in weight gain and SOB. Weight was up at least 10 lbs on admission. Patient was admitted and seen by nephrology at , PD was restarted in the hospital. Patient had an echo 11/15/23 that showed
a preserved EF. There is a h/o CABG at an outside hospital in 1995, primary psychiatry teacher unknown and patient has never seen cardiology at before. Patient with hyperkalemia on admission that resolved with PD. QT was prolonged to 486 ms on ECG on
admission 11/12/23 in the setting of RBBB, then 522 ms 11/16/23, then 543 ms this afternoon at 1330. Patient with a run of VT and confusion noted by nursing around 1330 today and magnesium rider ordered. Last magnesium level was 1.6 on 11/16/23. Patient
then had sustained VT and cardiac arrest prompting code 9. Cardiology arrived with rest of the team. Patient undergoing CPR and received Epi x1 and shocked x1 with ROSC. Patient intubated by anesthesia team.
-ECG reviewed by me with prolonged QT and IC RBBB. Check ECG to follow QTc and stop all QTc prolonging drugs, minimal propofol was used for intubation.
-Labs pending. Hyperkalemia and hypomagnesemia issues earlier this admission
-EF was stable by echo 11/15/23. Consider repeat echo.
-Troponin ordered and will likely elevate due to cardiac arrest, compressions and shock. Will trend.
-Patient is chronically on warfarin for h/o PAD.
--- NOTE | 2023-11-17 13:58 | CON.INTV ---
Consultation
Consultation Request
Date/Time Consultation Requested: 11-17-23
Date/Time Consultation Performed: 11-17-23
Requesting Provider: Hospitalist
Performing Provider: Dr Granados
Reason for Consultation: cardiac arrest
Medical History
-
Chief Complaint: cardiac arrest
History of Present Illness:
Mr Blair Thakkar is a 63/M adm 11-12 with confusion and EV edema.
Known h/o CKD on PD, recently not able to do PD himself due to confusion, did. At ER, confused, hypoxemic. Seen by Neurology, no acute findings on CT and MRI brain.
Seen by Renal, resumed PD soon after adm.
VTach episode on night 11-16, received IV Mag with resolution. VTach returned on early afternoon 11-17, started Mag IV infusion, MS continued deteriorating, became unresponsive, VTach deteriorated to TDP, then VFib, shock at 360K x1, developed PEA,
received 3 doses epinephrine, total CPR time about 3 min with ROSC, intubated by anesthesia with no reported difficulty
Past Medical History
Past Medical History: Other (see A&P for PMH/PSH)
Social History
Tobacco: Non-smoker
Alcohol: None
Drug: None
Personal:
Living: With Family
Employment: Retired
Family History
Family History: Reviewed & Not Pertinent
Allergies / Home Medications
Allergies
Allergy/AdvReac Type Severity Reaction Status Date / Time
No Known Allergies Allergy Verified 10/15/23 11:53
Home Medications
Medication Instructions Recorded Confirmed Last Taken Type
atorvastatin 40 mg tablet 40 mg PO HS High Cholesterol 06/12/21 11/12/23 11/11/23 History
cilostazol 100 mg tablet 100 mg PO BID Blood Clot 06/12/21 11/12/23 11/12/23 History
Prevention/Tx
ergocalciferol (vitamin D2) 1,250 50,000 units PO PRESLEY Supplement 06/12/21 11/12/2311/07/23 History
mcg (50,000 unit) capsule
ezetimibe 10 mg tablet 10 mg PO DAILY High Cholesterol 06/12/21 11/12/23 11/12/23 History
pantoprazole 40 mg tablet,delayed 40 mg PO DAILY Gastrointestinal 06/12/21 11/12/23 11/12/23 History
release Issue
sertraline 50 mg tablet 100 mg PO DAILY Mental 06/12/21 11/12/23 11/12/23 History
Health/Anxiety
acetaminophen 325 mg tablet 650 mg PO DAILYPRN PRN mild pain 10/15/23 11/12/23 Unknown History
(Tylenol)
amlodipine 5 mg tablet 5 mg PO BID Blood Pressure 10/15/23 11/12/23 11/12/23 History
bisoprolol fumarate 5 mg tablet 5 mg PO BID Blood Pressure 10/15/23 11/12/23 11/12/23 History
calcitriol 0.25 mcg capsule 0.25 mcg PO MOWEFR Supplement 10/15/23 11/12/23 11/12/23 History
calcium acetate 668 mg (169 mg 668 mg PO MEALS Supplement 10/15/23 11/12/23 11/12/23 History
calcium) tablet
gabapentin 100 mg capsule 100 mg PO BIDPRN PRN nerve pain 10/15/23 11/12/23 Unknown History
insulin aspart U-100 100 unit/mL 28 unit SC BID Diabetes 10/15/23 11/12/23 11/12/23 History
(3 mL) subcutaneous pen
insulin glargine 100 unit/mL (3 60 unit SC DAILY Diabetes 10/15/23 11/12/23 11/12/23 History
mL) subcutaneous pen (Basaglar
KwikPen U-100 Insulin)
magnesium oxide 400 mg PO BID Supplement 10/15/23 11/12/23 11/12/23 History
melatonin 3 mg tablet 3 mg PO HSPRN PRN sleep 10/15/23 11/12/23 Unknown History
oxycodone-acetaminophen 5 mg-325 1 tab PO DAILYPRN PRN severe pain 10/15/23 11/12/23 10/13/23 History
mg tablet
potassium chloride 10 mEq 10 meq PO HS Electrolyte Repletion 10/15/23 11/12/23 11/11/23 History
tablet,extended release
warfarin 4 mg tablet 4 mg PO MOTUWETHFRSA@1800 Blood 10/15/23 11/12/23 11/11/23 History
Clot Prevention/Tx
aspirin 81 mg tablet,delayed 81 mg PO DAILY Blood Clot 11/12/23 11/12/23 11/12/23 History
release Prevention/Tx
lorazepam 1 mg tablet 1 mg PO DAILY PRN anxiety 11/12/23 11/12/23 Unknown History
Review of Systems
-
Unable to Obtain full review of systems at this time due to: Acuity and Patient Intubation
Vitals / Labs / Diagnostic Testing
Vital Signs
Temp Pulse Resp BP Pulse Ox
97.4 F 83 16 147/71 94
11/17/23 07:35 11/17/23 09:43 11/17/23 09:41 11/17/23 09:43 11/17/23 09:41
Lab Data
11/17/23 04:46
11/17/23 04:46
Microbiology
11/12/23 13:11 Blood/Venous Blood Culture - Final
No Growth - Final Report
Diagnostic Testing:
Physical Exam
-
HEENT: Normocephalic and Moist Mucous Membranes
Cardiovascular: Regular Rhythm, Murmur and Peripheral Edema (mild EV)
Respiratory: Clear and Non-Labored Respirations
GI: Soft, Non Distended and Non Tender
Neurology: Other (mildly sedated, awake, can follow simple commands)
Skin: Dry
General: Respiratory Distress (n)
Assessment
-
Assessment:
Mr Blair Thakkar is a 63/M adm 11-12 with confusion and EV edema. Known h/o CKD on PD, recently not able to do PD himself due to confusion, did. At ER, confused, hypoxemic. Seen by Neurology, no acute findings on CT and MRI brain. Seen by
Renal, resumed PD soon after adm. VTach episode on night 11-16, received IV Mag with resolution. VTach returned on early afternoon 11-17, started Mag IV infusion, MS continued deteriorating, became unresponsive, VTach deteriorated to TDP, then
VFib, shock at 360K x1, developed PEA, received 3 doses epinephrine, total CPR time about 3 min with ROSC, intubated by anesthesia with no reported difficulty
Impression:
Cardiac arrest
VTach, TDP, VFib, PEA
Low normal serum Mg, given IV Mag on 11-16 and also 11-17 (was running at time of arrest)
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
CKD on PD
CAD s/p CABG
PVD s/p bilateral EV stenting
Emergent stenting RLE Jun 2021 ()
DM
HTN
HLD
Depression
Obesity
Plan:
VTach 11-16
Low normal Mag, replaced IV
No gross e-lyte abnormalities at time of VTach, TDP, VFib/PEA
Cardiac arrest 11-17
Intubated with no reported difficulty
CPR for about 3 min till ROSC
Moving EV weakly, swallowing activity noted
No candidate for hypothermia at this juncture
ACV to continue
Light sedation and analgesia
Opening eyes and following simple commands by 3:20 pm
No candidate for hypothermia protocol
Daily weaning trials
A-line
ABG
PICC vs CVC if needed (currently hypertensive)
Recheck labs
Cards saw patient at time of arrest and will follow
D/w Dr Beverly, poor candidate for revascularization given baseline and ongoing MS changes ELECTION SUPERVISOR
On chronic PD
Renal suspected PD no longer viable snf, rec to evaluate for HD as outpatient
Continue pertinent meds through NGT (placed after arrest)
On chronic coumadin for h/o PVD s/p stents
D/w MDT
Critical care time: 40 min
Diagnostic tests:
CXR 11-17-23 pm: pending
CXR 11-12 and 08-31 AM, portable, improved pulm vasc and parenchymal congestion, sternotomy
TTE 11-15-23
CONCLUSIONS
Normal left ventricular chamber size. Normal left ventricular systolic
function. Normal regional wall motion. Mild concentric left ventricular
hypertrophy. Left ventricular ejection fraction is 55-60% by visual estimate.
Diastolic function indeterminate due to atrial fibrillation.
Mildly thickened mitral valve leaflets. Mitral annular calcification. Mitral
valve opens normally. Trace mitral regurgitation.
--- NOTE | 2023-11-17 14:04 | W.PN.ANESINT ---
Anesthesia Intubation Note
- Intubation Note
Intubation Note:
Diagnosis: Cardiac Arrest
Blade: Glidescope 4
Tube Size: 8.0
Depth: 24 cm @lip
Side Taped: right
Drugs Used: propofol- 60 mg , Succs -20 mg
Grade View: 1
EtCO2 Present: yes
Atraumatic: yes
Attempts: 1
Insertion Start and Stop Time: 4481-0679
SaO2 Pre: 90
SaO2 Post: 97
Glidescope Used: yes
Other Airway Adjustments: no
Pre-Oxygenated: yes
Portable Chest X-Ray: yes
RSI: yes
Suctioned: yes
Bilateral Breath Sounds Confirmed: yes
Vent Settings:
Settings per ___Attending Physician
[2023-11-17] MEDS: SUBLIMAZE 50 MCG IV ×3 (14:12→18:29)
[2023-11-17] MEDS: SUBLIMAZE 100 IV (14:24)
--- NOTE | 2023-11-17 14:24 | TRANSFER ---
Pt transferred to ICU following Code 9. Report given bedside to AARTI Ordoñez
[2023-11-17 14:27] LABS: Hematocrit 30.6 % (39.0-52.0); Hemoglobin 9.8 g/dL (13.0-18.0); Mean Corpuscular Hgb 28.7 pg (27.0-31.0); Mean Corpuscular Volume 89.7 fL (80.0-94.0); Mean Platelet Volume 11.7 fL (7.4-10.4); Platelet Count 179 10^3/uL (130-400); Red Blood Cell Count 3.41 10^6/uL (4.70-6.10); Red Cell Dist. Width 15.8 % (11.5-14.5); White Blood Cell Count 10.7 10^3/uL (4.8-10.8)
[2023-11-17 14:39] LABS: Lactic Acid 3.6 mmol/L (0.7-2.0)
[2023-11-17 14:41] LABS: Blood Urea Nitrogen 48 mg/dl (9-20); Carbon Dioxide 26 mmol/L (22-30); Chloride 97 mmol/L (98-107); Estimated Creatinine Clearance 9 ml/min; Glucose 226 mg/dl (70-99); Potassium 3.7 mmol/L (3.5-5.1); Sodium 131 mmol/L (135-145); Triglycerides 133 mg/dl (10-149); eGFR 5.71
[2023-11-17 14:50] LABS: INR 3.26; PT 33.8 Sec (11.4-14.6)
[2023-11-17 14:51] LABS: APTT 55.7 Sec (23.4-35.0)
[2023-11-17 15:09] LABS: NT-proBNP > 27000 pg/ml; Troponin I 0.083 ng/ml
--- NOTE | 2023-11-17 15:16 | W.PN.ANS.LIN ---
Anesthesia IV & A-Line Note
- IV/Arterial Line
Right Wrist Arrow 20 (1 01/09)
IV Line Comments: Multiple Attempts
A-Line Comments: Sterile technique as per standard protocol, Ultrasound guided insertion, Multiple attempts, Biopatch applied
Funtioning A-line in situ: No
A-line Insertion Start Time: 14:30
A-line Insertion Stop Time: 15:00
Comments: good wave and return blood flow
[2023-11-17] MEDS: DIPRIVAN 100 IV (15:44)
[2023-11-17] MEDS: VANCOCIN 540 MG IV (15:59)
[2023-11-17 16:01] LABS: B.E. 5.6 mmol/L; HCO3 29.8 mmol/L (21-28); O2 Saturation % 99.7 % (94-98); PCO2 41 mmHg (35-48); PO2 218 mmHg (83-108); pH 7.47 (7.35-7.45)
[2023-11-17] MEDS: NOVOLOG FLEXPEN SC (17:08)
--- NOTE | 2023-11-17 17:39 | PTCARENOTE ---
Pt received at code 9. After ROSC, pt intubated then transferred to ICU. Fentanyl, Levophed and Propofol started. A-line and DHT placed. Labs, EKG and CXR complete. Peritoneal dialysis completed. ECHO completed. BP labile. Levophed as high
as 8, now at 2 mcg/min. Blood sugar elevated. Discussed with pharmacy and MD. Will be initiating glycemic protocol.
Sinus rhythm with RBBB, PACs and prolonged QT
Vent settings A/C 16/500/100%/8. Scant white sputum suctioned via ETT.
No Urine output. No BM.
All other assessments per charting.
[2023-11-17 17:42] LABS: Glucose - Point of Care 216 mg/dl (70-99)
[2023-11-17] MEDS: NOVOLIN R INSULIN INFUSION 100 IV (18:15)
[2023-11-17] MEDS: NOVOLIN R 4 UNITS IV (18:16)
[2023-11-17 19:40] LABS: Glucose - Point of Care 111 mg/dl (70-99)
--- NOTE | 2023-11-17 20:00 | PTCARENOTE ---
Pt tolerating vent changes satting at 97% pulse ox. On auscultation pt lungs sound coarse w/ rhonchi. Pt in NSR on tele monitor w/ BBB and prolonged QT. Received pt on levo gtt at 2 mcg/min, fentanyl gtt at 75 mcg/hr, and insulin gtt at 1.2 mL/hr.
VSS.
[2023-11-17 20:45] LABS: Glucose - Point of Care 114 mg/dl (70-99)
--- NOTE | 2023-11-17 20:57 | W.PN.NEPH.PH ---
Today's Communication / Plan
-
continue PD
Assessment/Plan
-
Assessment
-ESRD/PD
-volume overload
-CHF
-PAD
-HTN
-edema
-CAD/CABG
-DM2
Plan
-PD ordered, all 4.25%, 2L q4h
-there is a possibility that he will need to be converted to HD here depending on volume status, could consider CRRT
-keep MAP > 65
-follow lactate
-prognosis is guarded
-critical care time 31 minutes
-
-
Date of Service: November 17, 2023
CC / HPI / ROS
-
Chief Complaint:
ESRD
History of Present Illness:
PD with modest UF, with 4.25%
PD in progress
s/p code 9 with VT
now intubated in ICU on vent, critically ill
on pressors for hypotension
Review of Systems:
no fever
sedated
Labs
-
Labs:
WBC 10.7 10^3/uL (4.8-10.8) 11/17/23 14:18
RBC 3.41 10^6/uL (4.70-6.10) L 11/17/23 14:18
Hgb 9.8 g/dL (13.0-18.0) L 11/17/23 14:18
Hct 30.6 % (39.0-52.0) L 11/17/23 14:18
Plt Count 179 10^3/uL (130-400) 11/17/23 14:18
eGFR 5.71 11/17/23 14:15
Xum-V-Vxakfgdvact Pept > 27355 pg/ml 11/17/23 14:15
Albumin 2.7 g/dl (3.5-5.0) L 11/12/23 13:11
Physical Exam
-
Vital Signs:
Vital Signs
Temp Pulse Resp BP Pulse Ox
98.7 F 68 19 111/45 98
11/17/23 19:15 11/17/23 20:00 11/17/23 20:00 11/17/23 20:00 11/17/23 20:00
Cardiovascular:: Regular rate and rhythm
Respiratory:: Bilateral: Coarse
Lung Excursion:: Normal
Abdomen:: Nontender and Soft
Bowel Sounds:: Normal
Extremity Edema:: +1: Bilateral:
[2023-11-17] MEDS: MAGNESIUM OXIDE 500 MG TUBE (21:32)
[2023-11-17] MEDS: LIPITOR 40 MG TUBE (21:32)
[2023-11-17 21:38] LABS: Glucose - Point of Care 144 mg/dl (70-99)
[2023-11-17 22:39] LABS: Glucose - Point of Care 152 mg/dl (70-99)
[2023-11-17 22:50] LABS: B.E. 5.6 mmol/L; HCO3 29.8 mmol/L (21-28); Ionized Calcium 1.15 mMOL/L (1.15-1.33); PCO2 41 mmHg (35-48); PO2 91 mmHg (83-108); Potassium 3.4 mMOL/L (3.5-5.1); Sodium 132 mMOL/L (136-145); pH 7.47 (7.35-7.45)
[2023-11-17 23:46] LABS: Glucose - Point of Care 147 mg/dl (70-99)
[2023-11-17 23:55] LABS: Blood Urea Nitrogen 48 mg/dl (9-20); Calcium 7.7 mg/dl (8.4-10.2); Carbon Dioxide 30 mmol/L (22-30); Chloride 96 mmol/L (98-107); Estimated Creatinine Clearance 9 ml/min; Glucose 157 mg/dl (70-99); Magnesium 2.1 mg/dl (1.6-2.3); Potassium 3.5 mmol/L (3.5-5.1); Sodium 128 mmol/L (135-145); eGFR 5.86
[2023-11-18] VITALS (13 sets, daily range): BP systolic 46–156; BP diastolic 19–76; BMI 30.7; BMI 30.6
--- NOTE | 2023-11-18 | PTCARENOTE ---
Levo gtt turned off per protocol. Critical care glycemic protocol continued by this RN. VSS
[2023-11-18 01:45] LABS: Glucose - Point of Care 135 mg/dl (70-99)
[2023-11-18] MEDS: SUBLIMAZE 100 IV (03:01)
[2023-11-18 03:38] LABS: Glucose - Point of Care 156 mg/dl (70-99)
--- NOTE | 2023-11-18 04:20 | PTCARENOTE ---
Pt tolerating PD, see worklist for numeric values. Pt lightly sedated and forgetful at times. Pt is able to sometimes respond appropriately to yes and no questions. VSS.
[2023-11-18 04:29] LABS: B.E. 6.3 mmol/L; HCO3 30.6 mmol/L (21-28); Ionized Calcium 1.15 mMOL/L (1.15-1.33); O2 Saturation % 98.9 % (94-98); PCO2 42 mmHg (35-48); PO2 93 mmHg (83-108); Potassium 3.3 mMOL/L (3.5-5.1); Sodium 132 mMOL/L (136-145); pH 7.47 (7.35-7.45)
[2023-11-18 04:34] LABS: O2 Therapy 60%
[2023-11-18 04:40] LABS: % Basophils 0.6 % (0-2); % Eosinophils 1.8 % (0-6); % Immature Granulocytes 0.6 % (0-0.5); % Lymphocytes 10.5 % (20.5-51.1); % Monocytes 8.4 % (1.7-9.3); % Neutrophils 78.1 % (42.2-75.2); Absolute Eosinophils 0.1 10^3/uL (0-0.7); Absolute Lymphocytes 0.8 10^3/uL (1.2-3.4); Absolute Monocytes 0.6 10^3/uL (0.1-0.6); Absolute Neutrophils 5.7 10^3/uL (1.4-6.5); Hematocrit 29.1 % (39.0-52.0); Hemoglobin 9.4 g/dL (13.0-18.0); Mean Corp Hgb Conc. 32.3 g/dL (33.0-37.0); Mean Corpuscular Hgb 29.6 pg (27.0-31.0); Mean Corpuscular Volume 91.5 fL (80.0-94.0); Mean Platelet Volume 12.6 fL (7.4-10.4); Nucleated Red Blood Cells % 0 % (-); Platelet Count 168 10^3/uL (130-400); Red Blood Cell Count 3.18 10^6/uL (4.70-6.10); Red Cell Dist. Width 15.4 % (11.5-14.5); White Blood Cell Count 7.2 10^3/uL (4.8-10.8)
[2023-11-18 04:49] LABS: Glucose - Point of Care 123 mg/dl (70-99)
[2023-11-18 05:07] LABS: Blood Urea Nitrogen 47 mg/dl (9-20); Calcium 7.8 mg/dl (8.4-10.2); Carbon Dioxide 32 mmol/L (22-30); Chloride 97 mmol/L (98-107); Estimated Creatinine Clearance 9 ml/min; Glucose 153 mg/dl (70-99); Potassium 3.3 mmol/L (3.5-5.1); Sodium 131 mmol/L (135-145); eGFR 5.94
[2023-11-18 05:35] LABS: Glucose - Point of Care 121 mg/dl (70-99)
[2023-11-18] MEDS: KCL ELIXIR 20 MEQ TUBE ×2 (05:44→12:00)
[2023-11-18] MEDS: ZOSYN 50 IV ×3 (05:44→22:05)
[2023-11-18 06:47] LABS: Glucose - Point of Care 134 mg/dl (70-99)
--- NOTE | 2023-11-18 07:36 | W.PN.INTV ---
Today's Communication / Plan
Recommendations
Extubated
O2
Asp precs
Assessment
-
Assessment:
Mr Blair Thakkar is a 63/M adm 11-12 with confusion and EV edema. Known h/o CKD on PD, recently not able to do PD himself due to confusion, did. At ER, confused, hypoxemic. Seen by Neurology, no acute findings on CT and MRI brain. Seen by
Renal, resumed PD soon after adm. VTach episode on night 11-16, received IV Mag with resolution. VTach returned on early afternoon 11-17, started Mag IV infusion, MS continued deteriorating, became unresponsive, VTach deteriorated to TDP, then
VFib, shock at 360K x1, developed PEA, received 3 doses epinephrine, total CPR time about 3 min with ROSC, intubated by anesthesia with no reported difficulty
Impression:
Cardiac arrest
VTach, TDP, VFib, PEA
Low normal serum Mg, given IV Mag on 11-16 and also 11-17 (was running at time of arrest)
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
CKD on PD
CAD s/p CABG
PVD s/p bilateral EV stenting
Emergent stenting RLE Jun 2021 ()
DM
HTN
HLD
Depression
Obesity
Plan:
VTach evening 11-16
Low normal Mag, replaced IV at time of event
No gross e-lyte abnormalities at time of VTach, TDP, VFib/PEA
Cardiac arrest 11-17
Intubated with no reported difficulty
CPR, 3 epi doses, shock x1 at 360. CPR for about 3 min till ROSC
Moving EV weakly, swallowing activity noted after arrest
No candidate for hypothermia at this juncture
MS monitored, was able to open eyes and follow simple commands
ACV
Light sedation and analgesia
Opening eyes and following simple commands by 3:20 pm 11-17
No candidate for hypothermia protocol
Daily weaning trials
Good performance on SBT this morning
Appropriate weaning, extubated with no issue
Empiric atbs started by adm svce 11-17: vanco/zosyn
MRSA negative, will d/c vanco 11-18
Low threshold to d/c zosyn
Blood cxs so far negative
Resp secs cx pending
NE
Glycemic control: IV insulin gtt
Cards saw patient at time of arrest and will follow
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
On chronic PD
Renal suspected PD no longer viable fpc, rec to evaluate for HD as outpatient, now considering as inpatient, will need HD cath (ideally trilumen cath by IRad)
On chronic coumadin for h/o PVD s/p stents
Held since 11-17, follow INR
D/w MDT
Critical care time: 40 min
Diagnostic tests:
CXR 11-17-23 pm: interim intubation and GT. pulm vasc and parenchymal congestion.
CXR 11-12 and 08-31 AM, portable, improved pulm vasc and parenchymal congestion, sternotomy
TTE 11-17-23 (post cardiac arrest)
CONCLUSIONS
Limited study
Normal left ventricular chamber size. Mild concentric left ventricular
hypertrophy. Normal left ventricular systolic function. Left ventricular
ejection fraction is 50% by Grimaldo' s method. Diastology not assessed.
Since echocardiogram November 15, 2023 which was reviewed, there is no
significant change.
TTE 11-15-23
CONCLUSIONS
Normal left ventricular chamber size. Normal left ventricular systolic
function. Normal regional wall motion. Mild concentric left ventricular
hypertrophy. Left ventricular ejection fraction is 55-60% by visual estimate.
Diastolic function indeterminate due to atrial fibrillation.
Mildly thickened mitral valve leaflets. Mitral annular calcification. Mitral
valve opens normally. Trace mitral regurgitation.
Subjective Dataa
Subjective Data
Date of Service:
Date of Service: November 18, 2023
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
Subjective:
No major events reported overnight
Able to follow commands on my sedation
Doing well on SBT, plan extubation today
Review of Systems
General: Other (Denies major complaints by using body language while on mechanical ventilation)
Objective Data
Data Reviewed
Vital Signs / I&O / Oxygen:
Vital Signs
Temp Pulse Resp BP Pulse Ox
98.3 F 57 14 151/45 97
11/18/23 03:10 11/18/23 06:00 11/18/23 06:00 11/18/23 04:00 11/18/23 06:00
Intake and Output
11/17/23 11/18/23 11/19/23
06:59 06:59 06:59
Intake Total 590 / 590 311.4 / 311.4
Output Total 2049 / 2049 1400 / 1400
Balance -1460 / -1460 -1088.6 / -1088.6
SaO2 [A/C] 98
SaO2 97
Nasal Cannula flow liters per 6
minute
Physical Exam
General: Comfortable
HEENT: Normocephalic and Moist Mucous Membranes
Cardiovascular: Regular Rhythm, Murmur (n) and Peripheral Edema (n)
Respiratory: Clear and Non-Labored Respirations
GI: Soft, Non Distended and Non Tender
Neurology: Awake, Oriented and No Motor Deficits
Skin: Dry
Labs/Micro/Reports
Lab Data
11/18/23 04:09
11/18/23 04:09
Laboratory Results
11/17/23 11/17/23 11/17/23
14:15 15:35 22:19
PT 33.8 H
INR 3.26
APTT 55.7 H
pH 7.47 H 7.47 H
pCO2 41 41
pO2 218 H 91
HCO3 29.8 H 29.8 H
O2 Delivery Level
11/18/23
04:10
PT
INR
APTT
pH 7.47 H
pCO2 42
pO2 93
HCO3 30.6 H
O2 Delivery Level 60%
Microbiology
11/17/23 13:04 Nose Nasal Screen MRSA (PCR) - Final
MRSA not detected - performed by PCR methodology.
11/12/23 13:11 Blood/Venous Blood Culture - Final
No Growth - Final Report
[2023-11-18 07:42] LABS: Glucose - Point of Care 157 mg/dl (70-99)
[2023-11-18 08:22] LABS: Lactic Acid 0.9 mmol/L (0.7-2.0)
[2023-11-18 08:27] LABS: INR 2.78; PT 29.8 Sec (11.4-14.6)
[2023-11-18] MEDS: LOW STRENGTH ASPIRIN 81 MG TUBE (08:48)
[2023-11-18] MEDS: NSS (PRESERVATIVE FREE) 10 ML IV (08:49)
[2023-11-18] MEDS: PROTONIX IV 40 MG IV (08:49)
[2023-11-18] MEDS: ZETIA 10 MG TUBE (08:49)
[2023-11-18] MEDS: MIRALAX 17 GRAMS TUBE (08:49)
[2023-11-18] MEDS: MAGNESIUM OXIDE 500 MG TUBE ×2 (08:49→20:38)
[2023-11-18 08:54] LABS: Glucose - Point of Care 114 mg/dl (70-99)
--- NOTE | 2023-11-18 09:22 | W.PN.HOSP.TC ---
Today's Communication/Plan
-
Mechanical ventilation. Weaning trial. Continue IV antibiotics. Dialysis per nephrology.
Assessment / Plan
Assessment / Plan
Physical exam:
General: Acutely ill. On the vent.
HEENT: Normocephalic, Atraumatic and Moist Mucous Membranes
Respiratory: Decreased breath sounds bilateral. Crackles in the bases. No wheezes.
Cardiac: Regular Rhythm with extra beats, and S1/S2
GI: Soft, Nontender and Nondistended
Musculoskeletal: No Clubbing, No Cyanosis. Presence of edema
Neuro: Minimally sedated on the vent (on fentanyl). He is awake and does follow simple commands.
Psych: Unable to assess since he is on ventilator.
A/P:
#Cardiorespiratory arrest
-Code called. V. tach-->TDP-->V Fib-->PEA. CPR abt 3 min and Epinephrine x3. V Fib s/p shock 360J x1--> ROSC achieved.
-IV magnesium ordered earlier but not given yet and was given during the code.
-Twelve-lead EKG with prolonged QTc
-I participated in the code along with the rest of the team.
-Discussed with cardiology team at bedside
-Updated over the phone today--> understanding of critical situation, and will also like to continue full medical efforts at this point in time.
-Air Purifier Servicer consulted
-Avoid QTc prolonging medications at all cost.
-Might need cardiac catheterization but will defer to cardiology
-Plan for transthoracic echocardiogram--> EF 50%, mild concentric left ventricular hypertrophy, no significant changes from prior echo.
-WBC 7.2, globin 9.4, count 168 today
#Acute hypoxic respiratory failure
-In the morning he was on 6 L of oxygen
-Obtained chest x-ray today on 11/17
-Start empirically on IV Zosyn and vancomycin obtain blood cultures prior.
-Patient deteriorated and went into cardiac arrest and now on mechanical ventilation
-Intubated by anesthesia during code.
-Pulmonary reception specialist consulted
-Might need hemodialysis but defer to nephrology
# Sepsis/septic shock
-Continue Levophed and titrate as able
-Blood cultures obtained prior to antibiotics
-Zosyn and vancomycin
-Follow-up hemodynamic
#Hypokalemia
Replete and trend
#Hypomagnesemia
Magnesium 2.0 today
# Toxic metabolic encephalopathy
-Multifactorial in nature with uremia concerns and now possible sepsis contributing and hypoxia at this point
-Head CT with impression of no acute intracranial abnormality noted.Increased soft tissue attenuation in the 0deep subcutaneous tissues adjacent to the outer table of the posterior midline/left paramidline parietal region, raising the possibility of
posttraumatic soft tissue swelling/contusion. Clinical correlation recommended.
-UA negative. Blood cultures in lab negative so far. Afebrile.
-continue to monitor mentation
-MRI brain negative for acute stroke or pathology.
-Ativan has been held. Gabapentin is as needed. Not on any RESIDENTIAL CARE OFFICER depressing agents.
-About to undergo EEG
-Mentation seems back to baseline.
# End-stage renal disease on peritoneal dialysis
#Anasarca 2/2 above
# Acute hypoxic respiratory insufficiency secondary to above
-Nephrology on consult
-Might need hemodialysis but defer to nephrology
-Calcitrol, calcium acetate
-Volume removal should help.
-Nephro on board.
-Creatinine 9.1 today
# Diabetic foot blister wound
-does not look infectious
-afebrile
-ctm
-wound care consulted
# CHF exacerbation
-BNP 53587
-Chest x-ray with impression of Findings suspicious for mild congestive heart failure.
-Strict SOLIS
-Daily weight
-Fluid restriction.
-ECHO noted EF of 55 to 60%. Diastolic function indeterminant.
-nephrology consulted
# Anemia of chronic kidney disease
-Hemoglobin stable at 9.8
-No active bleeding
-Continue to monitor
#Severe R PVD with claudication
#HX of vascular stenting (RLE x 2, LLE x 2)
-s/p angiopathy, right iliac artery,� balloon angioplasty and also status post OR on 06/13 for lysis� removal, SFA stent and external iliac stent
- continue ASA/Statin/cilostazol
-Gabapentin continued
-Coumadin prior to intubation, on 4 mg. INR 2.78 today
-daily PT/INR. INR 3.26
# RLE DVT
-On a/c warfarin for over 2 years
Essential HTN
- continue Norvasc
- continue bisoprolol dose increased to 10 mg twice daily
- Switch to p.o. hydralazine on discharge
IDDM
-sliding scale, lantus and pre-meal insulin started. Increase basal to 40 units and Premeal to 12.
-CHO diet
#HLD
- statin/Zetia
#CAD s/p CABG
- continue ASA/Statin/BB
Depression - Discontinue Zoloft since it can prolong QTc
DVT ppx: coumadin
Code: Full
Total time spent on today's encounter was 52 minutes which included time spent in counseling the patient/family regarding diagnosis and treatment plan as listed above, goals of care, and symptom management. Case was discussed with nursing staff,
specialists, and care coordinators/case management. All labs and imaging personally reviewed by me. Remainder the time spent in detailed review of previous records, lab data, imaging, and other medical provider documentation.
Anticipated Discharge: > 48 hours
Subjective/Interval History
-
Date of Service: November 18, 2023
Patient seen and evaluated.
Objective Data
-
Labs:
Laboratory Results
11/17/23 11/18/23 11/18/23
22:19 04:09 04:10
WBC 7.2
Hgb 9.4 L
Hct 29.1 L
Plt Count 168
PT
INR
HCO3 29.8 H 30.6 H
Sodium 128 L 131 L
Potassium 3.5 3.3 L
Chloride 96 L 97 L
Carbon Dioxide 30 32 H
BUN 48 H 47 H
Creatinine 9.2 H* 9.1 H*
Glucose 157 H 153 H
Calcium 7.7 L 7.8 L
11/18/23
07:58
WBC
Hgb
Hct
Plt Count
PT 29.8 H
INR 2.78
HCO3
Sodium
Potassium
Chloride
Carbon Dioxide
BUN
Creatinine
Glucose
Calcium
Vital Signs:
Vital Signs
Temp Pulse Resp BP Pulse Ox
98.7 F 57 14 151/45 99
11/18/23 08:14 11/18/23 06:00 11/18/23 06:00 11/18/23 04:00 11/18/23 07:56
I&O
11/17/23 11/18/23 11/19/23
06:59 06:59 06:59
Intake Total 590 / 590 311.4 / 311.4
Output Total 2049 / 2049 1550 / 1550
Balance -1460 / -1460 -1238.6 / -1238.6
--- NOTE | 2023-11-18 11:11 | W.PN.NEPH.PH ---
Today's Communication / Plan
-
PD
Assessment/Plan
-
Assessment
-ESRD/PD
-volume overload
-CHF
-PAD
-HTN
-edema
-CAD/CABG
-DM2
Plan
-PD ordered, all 4.25%, 2L q4h
-there is a possibility that he will need to be converted to HD here depending on volume status, but so far stable
-keep MAP > 65
-replete K at least 40
-follow Mg
-critical care time 31 minutes
-
-
Date of Service: November 18, 2023
CC / HPI / ROS
-
Chief Complaint:
ESRD
History of Present Illness:
PD with modest UF, with 4.25%
PD in progress
s/p code 9 with VT 11/17/23
now intubated in ICU on vent, critically ill
on pressors for hypotension
awake without complaints
Review of Systems:
no fever
no CP/SOB
Labs
-
Labs:
WBC 7.2 10^3/uL (4.8-10.8) 11/18/23 04:09
RBC 3.18 10^6/uL (4.70-6.10) L 11/18/23 04:09
Hgb 9.4 g/dL (13.0-18.0) L 11/18/23 04:09
Hct 29.1 % (39.0-52.0) L 11/18/23 04:09
Plt Count 168 10^3/uL (130-400) 11/18/23 04:09
Sodium 131 mmol/L (135-145) L 11/18/23 04:09
Potassium 3.3 mmol/L (3.5-5.1) L 11/18/23 04:09
Chloride 97 mmol/L (98-107) L 11/18/23 04:09
Carbon Dioxide 32 mmol/L (22-30) H 11/18/23 04:09
BUN 47 mg/dl (9-20) H 11/18/23 04:09
Creatinine 9.1 mg/dL (0.7-1.3) H* 11/18/23 04:09
eGFR 5.94 11/18/23 04:09
Glucose 153 mg/dl (70-99) H 11/18/23 04:09
Calcium 7.8 mg/dl (8.4-10.2) L 11/18/23 04:09
Eje-R-Fhgsqaaommh Pept > 13183 pg/ml 11/17/23 14:15
Albumin 2.7 g/dl (3.5-5.0) L 11/12/23 13:11
Physical Exam
-
Vital Signs:
Vital Signs
Temp Pulse Resp BP Pulse Ox
98.7 F 51 24 134/42 99
11/18/23 08:14 11/18/23 10:55 11/18/23 10:55 11/18/23 09:18 11/18/23 10:56
Cardiovascular:: Regular rate and rhythm
Respiratory:: Bilateral: Coarse
Lung Excursion:: Normal
Abdomen:: Nontender and Soft
Bowel Sounds:: Normal
Extremity Edema:: +1: Bilateral:
[2023-11-18 11:41] LABS: Glucose - Point of Care 98 mg/dl (70-99)
--- NOTE | 2023-11-18 11:46 | PN.DE.MGMTRT ---
Insulin Management
- -
11/18/2023 Diabetes Management Follow up
Admitted 11/12 for R foot wound, confusion, SOB, swelling. PMH renal failure with peritoneal dialysis, HTN, PVD type 2 diabetes. Prior to admission chart reflects he was taking 60 units Basaglar daily with Novolog 28 units BID. A1C 8.6. Patient
had cardiac arrest 11/16 now intubated on mechanical ventilation and insulin infusion. Prior to this patient was receiving lantus in AM with AC novolog at reduced doses.
Will continue glycemic protocol at this time. If patient is weaned off of ventilator will assess for readiness to transition to subcutaneous insulin.
Diabetes History
- -
Type of Diabetes: 2 requiring insulin
Pre-Admission Diabetes Regimen
11/17/23 11/17/23 11/18/23
14:15 22:19 04:09
Creatinine 9.4 H* 9.2 H* 9.1 H*
Lab Results
Hemoglobin A1c 8.6 % (4.0-5.6) H 11/13/23 06:09
Insulin Pump Settings
IP Diabetes Regimen
11/17/23 11/17/23 11/17/23
12:37 14:15 17:31
Glucose 226 H
POC Glucose 276 H 216 H
11/17/23 11/17/23 11/17/23
19:29 20:33 21:27
Glucose
POC Glucose 111 H 114 H 144 H
11/17/23 11/17/23 11/17/23
22:19 22:28 23:35
Glucose 157 H
POC Glucose 152 H 147 H
11/18/23 11/18/23 11/18/23
01:34 03:27 04:09
Glucose 153 H
POC Glucose 135 H 156 H
11/18/23 11/18/23 11/18/23
04:37 05:24 06:36
Glucose
POC Glucose 123 H 121 H 134 H
11/18/23 11/18/23 11/18/23
07:31 08:43 11:20
Glucose
POC Glucose 157 H 114 H 98
Patient Education
--- NOTE | 2023-11-18 12:00 | PTCARENOTE ---
4 hour exchange initiated at 1000 per schedule, but some difficulty noted with indwell. no difficulty draining, but stopped instilling after very short period. attempts made to solve, but with no improvement. Dr Fields aware. Ended up starting with
new safe exchange set, and dialysate infused without difficulty.
[2023-11-18 12:17] LABS: B.E. 1.1 mmol/L; HCO3 25.1 mmol/L (21-28); PCO2 37 mmHg (35-48); PO2 92 mmHg (83-108); pH 7.44 (7.35-7.45)
[2023-11-18 12:20] LABS: O2 Saturation % 97.4 % (94-98)
[2023-11-18 12:33] LABS: Glucose - Point of Care 182 mg/dl (70-99)
--- NOTE | 2023-11-18 12:54 | PTCARENOTE ---
Addendum entered by Nikki Mcleod RN 11/18/23 13:15:
Systems otherwise unchanged.
Original Note:
Pt extubated at 1245 to 6lnc without difficulty. Restraints removed at time of extubation. Pt assisted with repositioning. Does c/o pain across chest. Made aware of events yesterday. Asked about speaking with his and was asked to wait and
rest his voice after extubation. Pt agreeable. called and updated, she will be in shortly to see patient
[2023-11-18 13:39] LABS: Troponin I 0.293 ng/ml
[2023-11-18 13:43] LABS: Glucose - Point of Care 179 mg/dl (70-99)
[2023-11-18] MEDS: TYLENOL ORAL SOLUTION 650 MG TUBE ×3 (14:03→22:05)
--- NOTE | 2023-11-18 14:54 | CM ---
CM following re: discharge planning.
Discussed in Rounds,reviewed pt's chart, met with pt. Per Rounds meeting, pt intubated yesterday, continue supportive care.
Pt has been receiving PD at home managed by [facility]. Per Sales Floor Team Member it is a possibility that pt might be converted to HD treatment.
D/C plan: TBD and will depend on pt's progress.
CM will follow with discharge plan updates as hospitalization progresses
--- NOTE | 2023-11-18 15:35 | PTCARENOTE ---
pressure dropped prior to initiated drain for pd, levophed resumed as charted.
[2023-11-18 15:39] LABS: Glucose - Point of Care 97 mg/dl (70-99)
[2023-11-18] MEDS: SUBLIMAZE 50 MCG IV (16:37)
--- NOTE | 2023-11-18 17:16 | W.PN.CARDCBS ---
Today's Communication / Plan
-
1. Patient was successfully extubated however continues to remain on low-dose Levophed.
2. ECG with diffuse ST depressions concerning for possible global ischemia however patient does not relay any active cardiac complaints currently. ST-T changes were alos noted on 11/12 prior to VT arrest. QT continues to be prolonged in the setting
of ongoing bradycardia. Aim for MAP over 65 mmHg.
3. Lactate has completely normalized. Trending troponins which are only very mildly uptrending, especially in the postarrest setting.
4. Defer ultrafiltration to nephrology and primary team through peritoneal dialysis.
5. Echocardiogram from yesterday showing no significant new changes.
6. INR in the therapeutic range. Coumadin on hold for now. Will consider heparin drip once INR falls less than 2 until we make a final decision in regards to need for inpatient invasive ischemic workup vs ongoing medial therapy given patient does
not report any recent or active anginal complaints
7. We will obtain outpatient records from [facility] cardiology--Robyn Benavidez given we do not have any prior cardiac records.
Discussed all of the above with patient and at bedside.
Stefanie Myers MD, [facility], [facility]
Impression / Plan
-
PCP: Dr. Susan Starkey
Cardiology: Unknown
Nephrology: [facility]
Vascular surgery: Dr. Sweeney
Impression:
In-hospital cardiac arrest 11/17/23
VT arrest
s/p shock x1 and Epi x1 11/17/23
Prolonged QT
Admitted with TME, uremia and anasarca 11/12/23
ESRD on PD
failing at home PD due to cognitive dysfunction
Elevated Troponin
CAD s/p CABG outside hospital 1995
Acute HFpEF
Anasarca
PAD
fem pop bypass 2015
right CEA at [place] 03/2019
left CEA at [place] 07/2019
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
Chronic warfarin OAC for PAD
DM 2
Echo 11/15/23: EF 55-60%, trace MR
Echo 11/17/23:
Plan:
-Patient came to [facility] on 11/12/23 with increasing SOB after he had trouble keeping up with his home PD treatments and he was admitted with acute HF and volume overload, cardiology is now consulted after a VT arrest today. Patient was admitted 11/12/23
with anasarca, SOB and failing PD at home. Patient lives in [place] and follows with a board attendant at [facility], but came to for care. Patient and also noted increasing somnolence and some confusion which overall seemed to be contributing to
trouble with maintaining PD treatments at home resulting in weight gain and SOB. Weight was up at least 10 lbs on admission. Patient was admitted and seen by nephrology at , PD was restarted in the hospital. Patient had an echo 11/15/23 that showed
a preserved EF. There is a h/o CABG at an outside hospital in 1995, primary hide trimmer unknown and patient has never seen cardiology at before. Patient with hyperkalemia on admission that resolved with PD. QT was prolonged to 486 ms on ECG on
admission 11/12/23 in the setting of RBBB, then 522 ms 11/16/23, then 543 ms this afternoon at 1330. Patient with a run of VT and confusion noted by nursing around 1330 today and magnesium rider ordered. Last magnesium level was 1.6 on 11/16/23. Patient
then had sustained VT and cardiac arrest prompting code 9. Cardiology arrived with rest of the team. Patient undergoing CPR and received Epi x1 and shocked x1 with ROSC. Patient intubated by anesthesia team.
-ECG reviewed by me with prolonged QT and IC RBBB. Check ECG to follow QTc and stop all QTc prolonging drugs, minimal propofol was used for intubation.
-Labs pending. Hyperkalemia and hypomagnesemia issues earlier this admission
-EF was stable by echo 11/15/23. Repeat Echo without significant changes.
-Troponin ordered and will likely elevate due to cardiac arrest, compressions and shock. Will trend.
-Patient is chronically on warfarin for h/o PAD.
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
Subjective
Date of Service: November 18, 2023
Patient has been extubated. Continues to still be on low-dose of Levophed. Complains of generalized anterior chest wall discomfort however denies any angina like symptoms or dyspnea.
Objective
Labs:
11/18/23 04:09
11/18/23 04:09
Labs
Hgb 9.4 g/dL (13.0-18.0) L 11/18/23 04:09
Hct 29.1 % (39.0-52.0) L 11/18/23 04:09
Plt Count 168 10^3/uL (130-400) 11/18/23 04:09
PT 29.8 Sec (11.4-14.6) H 11/18/23 07:58
INR 2.78 11/18/23 07:58
APTT 55.7 Sec (23.4-35.0) H 11/17/23 14:15
Sodium 131 mmol/L (135-145) L 11/18/23 04:09
Potassium 3.3 mmol/L (3.5-5.1) L 11/18/23 04:09
BUN 47 mg/dl (9-20) H 11/18/23 04:09
Creatinine 9.1 mg/dL (0.7-1.3) H* 11/18/23 04:09
Glucose 153 mg/dl (70-99) H 11/18/23 04:09
Troponins
11/17/23 11/17/23 11/18/23
14:15 14:15 12:59
Troponin I Cancelled 0.083 H* 0.293 H*
Vital Signs and I&O:
Vital Signs
Temp Pulse Resp BP Pulse Ox
98.6 F 73 21 90/76 87
11/18/23 16:09 11/18/23 16:30 11/18/23 16:30 11/18/23 12:41 11/18/23 16:00
Vital Signs
Temp Pulse Resp BP Pulse Ox
98.6 F 73 21 90/76 87
11/18/23 16:09 11/18/23 16:30 11/18/23 16:30 11/18/23 12:41 11/18/23 16:00
Intake & Output
11/16/23 11/17/23 11/18/23 11/19/23
06:59 06:59 06:59 06:59
Intake Total 590 / 590 311.4 / 329.4 102.7 / 102.7
Output Total 1999 / 2049 1550 / 1550 550 / 550
Balance -1999 / -1460 / -1460 -1238.6 / -1220.6 -447.3 / -447.3
Physical Exam
Physical Exam
No acute distress, awake, alert and oriented x 3, at bedside
Intermittently some confusion noted in regards to recent history.
Regular rate, normal S1 and S2, no murmurs, rubs or gallops,
Decreased breath sounds at bilateral bases
abdomen soft, nontender, nondistended
Warm extremities
[2023-11-18 17:44] LABS: Glucose - Point of Care 170 mg/dl (70-99)
[2023-11-18] MEDS: ProAmatine 5 MG TUBE (17:48)
--- NOTE | 2023-11-18 18:04 | PTCARENOTE ---
Pt bp very labile when off levo, but sensitive to dosing. Dr Fields aware and midodrine added. Since extubation, sats borderline on nasal cannula requiring increased oxygen to max midflow. Dr Granados aware and said we could use high flow, resp care
aware and pt currently on 75% and 50Liters. Pt has looked comfortable, only mildly labored when laying flat. Otherwise no changes.
--- NOTE | 2023-11-18 18:10 | W.PN.UPDATE ---
Update Note
Progress Note Update
PD in progress
2L q4h exchanges with all 4.25% solution.
net negative I/O, but not by much.
no additives
[2023-11-18 19:43] LABS: Glucose - Point of Care 137 mg/dl (70-99)
--- NOTE | 2023-11-18 20:55 | PTCARENOTE ---
Pt's mental status significantly improved from previous conveyor line battery charger. Pt is A&Ox3 and only slightly forgetful at times. Pt still on insulin gtt for hyperglycemic protocol. PD performed by this RN per order. VSS.
[2023-11-18 21:46] LABS: Glucose - Point of Care 138 mg/dl (70-99)
[2023-11-18] MEDS: LIPITOR 40 MG TUBE (22:05)
[2023-11-18 23:34] LABS: Glucose - Point of Care 151 mg/dl (70-99)
[2023-11-19] VITALS (14 sets, daily range): BP systolic 107–169; BP diastolic 52–117; BMI 30.7
[2023-11-19 00:02] LABS: Troponin I 0.188 ng/ml
[2023-11-19 01:44] LABS: Glucose - Point of Care 97 mg/dl (70-99)
[2023-11-19] MEDS: TYLENOL ORAL SOLUTION 650 MG TUBE ×2 (02:48→06:05)
[2023-11-19] MEDS: ProAmatine 5 MG TUBE ×2 (02:48→10:00)
[2023-11-19 03:40] LABS: Glucose - Point of Care 197 mg/dl (70-99)
[2023-11-19] MEDS: NOVOLIN R INSULIN INFUSION 100 IV (04:06)
[2023-11-19 04:51] LABS: Glucose - Point of Care 180 mg/dl (70-99)
[2023-11-19 05:15] LABS: % Basophils 0.4 % (0-2); % Eosinophils 1.4 % (0-6); % Immature Granulocytes 0.4 % (0-0.5); % Lymphocytes 8.2 % (20.5-51.1); % Monocytes 6.8 % (1.7-9.3); % Neutrophils 82.8 % (42.2-75.2); Absolute Eosinophils 0.1 10^3/uL (0-0.7); Absolute Lymphocytes 0.4 10^3/uL (1.2-3.4); Absolute Monocytes 0.4 10^3/uL (0.1-0.6); Absolute Neutrophils 4.2 10^3/uL (1.4-6.5); Hemoglobin 8.8 g/dL (13.0-18.0); Mean Corp Hgb Conc. 32.6 g/dL (33.0-37.0); Mean Corpuscular Hgb 29.5 pg (27.0-31.0); Mean Corpuscular Volume 90.6 fL (80.0-94.0); Mean Platelet Volume 12.3 fL (7.4-10.4); Nucleated Red Blood Cells % 0 % (-); Platelet Count 134 10^3/uL (130-400); Red Blood Cell Count 2.98 10^6/uL (4.70-6.10); Red Cell Dist. Width 15.3 % (11.5-14.5); White Blood Cell Count 5.1 10^3/uL (4.8-10.8)
[2023-11-19 05:33] LABS: Troponin I 0.178 ng/ml
[2023-11-19 05:55] LABS: Blood Urea Nitrogen 46 mg/dl (9-20); Calcium 7.7 mg/dl (8.4-10.2); Carbon Dioxide 29 mmol/L (22-30); Chloride 93 mmol/L (98-107); Estimated Creatinine Clearance 9 ml/min; Glucose 165 mg/dl (70-99); Magnesium 1.8 mg/dl (1.6-2.3); Potassium 3.5 mmol/L (3.5-5.1); Sodium 131 mmol/L (135-145); eGFR 6.27
[2023-11-19] MEDS: ZOSYN 50 IV (06:05)
[2023-11-19 06:35] LABS: Glucose - Point of Care 180 mg/dl (70-99)
--- NOTE | 2023-11-19 07:29 | W.PN.INTV ---
Today's Communication / Plan
Recommendations
O2
D/c atbs
PD
Insulin, diet
Telem or IVU
Assessment
-
Assessment:
Mr Blair Thakkar is a 63/M adm 11-12 with confusion and EV edema. Known h/o CKD on PD, recently not able to do PD himself due to confusion, did. At ER, confused, hypoxemic. Seen by Neurology, no acute findings on CT and MRI brain. Seen by
Renal, resumed PD soon after adm. VTach episode on night 11-16, received IV Mag with resolution. VTach returned on early afternoon 11-17, started Mag IV infusion, MS continued deteriorating, became unresponsive, VTach deteriorated to TDP, then
VFib, shock at 360K x1, developed PEA, received 3 doses epinephrine, total CPR time about 3 min with ROSC, intubated by anesthesia with no reported difficulty
Impression:
Cardiac arrest 11-17-23
VTach, TDP, VFib, PEA
Low normal serum Mg on 11-16 and given IV Mag on 11-16 and also 11-17 (Mg was running at time of arrest)
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
CKD on PD
CAD s/p CABG
PVD s/p bilateral EV stenting
Emergent stenting RLE Jun 2021 ()
DM
HTN
HLD
Depression
Obesity
Plan:
VTach evening 11-16
Low normal Mag, replaced IV at time of event
No gross e-lyte abnormalities at time of VTach, TDP, VFib/PEA
Cardiac arrest 11-17
Intubated with no reported difficulty
CPR, 3 epi doses, shock x1 at 360. CPR for about 3 min till ROSC
Moving EV weakly, swallowing activity noted after arrest
No candidate for hypothermia
MS monitored, was able to open eyes and follow simple commands
MV with good performance on SBT 11-18
Appropriate weaning, extubated with no issue 11-18
Empiric atbs started by adm svce 11-17: vanco/zosyn
MRSA negative, will d/c vanco 11-18
Low threshold to d/c zosyn: d/c'ed 11-19 and observe
Blood cxs so far negative
Resp secs cx negative
NE off since 11-18
Glycemic control: IV insulin gtt to transition to lantus and AC novolog 11-19
ADA 1800 luh diet
Cards saw patient at time of arrest and will follow
D/w Dr Beverly, initially deemed poor candidate for revascularization given baseline and ongoing MS changes PRECISION LENS GENERATOR but continues following (d/w Dr Myers)
Cards following, likely for C early next week
On chronic PD
Renal suspected PD no longer viable senior care, rec to evaluate for HD as outpatient, now considering as inpatient, will need HD cath (ideally trilumen cath by IRad)
On chronic coumadin for h/o PVD s/p stents
Held since 11-17, follow INR
D/w MDT
Can transfer to telemetry or IVU, will sign off then
Diagnostic tests:
CXR 11-17- pm: interim intubation and GT. pulm vasc and parenchymal congestion.
CXR - and - AM, portable, improved pulm vasc and parenchymal congestion, sternotomy
TTE 11-17-23 (post cardiac arrest)
CONCLUSIONS
Limited study
Normal left ventricular chamber size. Mild concentric left ventricular
hypertrophy. Normal left ventricular systolic function. Left ventricular
ejection fraction is 50% by Grimaldo' s method. Diastology not assessed.
Since echocardiogram November 15, 2023 which was reviewed, there is no
significant change.
TTE 11-15-23
CONCLUSIONS
Normal left ventricular chamber size. Normal left ventricular systolic
function. Normal regional wall motion. Mild concentric left ventricular
hypertrophy. Left ventricular ejection fraction is 55-60% by visual estimate.
Diastolic function indeterminate due to atrial fibrillation.
Mildly thickened mitral valve leaflets. Mitral annular calcification. Mitral
valve opens normally. Trace mitral regurgitation.
Subjective Dataa
Subjective Data
Date of Service:
Date of Service: November 19, 2023
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
Subjective:
No major events reported overnight
Extubated with no issue yesterday
On high flow nasal cannula
Awake, conversant
Continues on PD
Review of Systems
General: Fever (n), Sweats (n), Chills and Satisfactory Appetite
HEENT: Epistaxis (n) and Dysphagia
Cardiopulmonary: Dyspnea (mild), Cough (n), Sputum Production, Wheezing (n), Chest Pain, Edema (EV) and Hemoptysis (n)
GI: Abdominal Pain (n), Nausea (n) and Vomiting
Neuro: Weakness
Objective Data
Data Reviewed
Vital Signs / I&O / Oxygen:
Vital Signs
Temp Pulse Resp BP Pulse Ox
97.8 F 62 19 113/61 95
11/19/23 03:30 11/19/23 07:00 11/19/23 07:00 11/19/23 04:00 11/19/23 06:00
Intake and Output
11/18/23 11/19/23 11/20/23
06:59 06:59 06:59
Intake Total 311.4 / 329.4 651.1 / 651.1
Output Total 1550 / 1550 1250 / 1250
Balance -1238.6 / -1220.6 -598.9 / -598.9
SaO2 [CPAP/PSV] 95
SaO2 [A/C] 96
SaO2 95
Nasal Cannula flow liters per 50
minute
Physical Exam
General: Comfortable
HEENT: Normocephalic and Moist Mucous Membranes
Cardiovascular: Regular Rhythm, Murmur (n) and Peripheral Edema (n)
Respiratory: Clear, Non-Labored Respirations and Stridor (n)
GI: Soft, Non Distended and Non Tender
Neurology: Awake, Oriented and No Motor Deficits
Skin: Dry
Labs/Micro/Reports
Lab Data
11/19/23 04:50
11/19/23 04:50
Laboratory Results
11/18/23 11/18/23
07:58 12:10
PT 29.8 H
INR 2.78
pH 7.44
pCO2 37
pO2 92
HCO3 25.1
O2 Delivery Level Not Reportable
Microbiology
11/18/23 09:27 Tracheal Aspirate Gram Stain - Preliminary
11/17/23 13:16 Blood/Venous Blood Culture - Preliminary
No Growth in 24 hours- Final report to follow
11/17/23 13:04 Nose Nasal Screen MRSA (PCR) - Final
MRSA not detected - performed by PCR methodology.
11/12/23 13:11 Blood/Venous Blood Culture - Final
No Growth - Final Report
[2023-11-19 07:54] LABS: Glucose - Point of Care 173 mg/dl (70-99)
--- NOTE | 2023-11-19 08:00 | PTCARENOTE ---
Assumed care of Pt this morning. VSS. Received Pt with insulin gtt infusing, see documentation. Q1h accuchecks. Pt AAOx3, forgetful @ x's, withdrawn. Pt on monitor NSR w BBB and prolong QT. R radial a-line intact, zero'd. Pt on highflow 50L 75%, O2
sats > 93%. Pt removed cannula this morning. O2 sats immediately dropped to 70%. Pt argumentative in putting cannula back in but agreeable. O2 sats climbed to low 90s. Pt removed dobhoff for nightshift RN, speech consulted before attempting oral
medications. +BS. Pt oliguric. Due for PD @ 0945. Bed locked in lowest position, safe environment maintained. Cont with current plan.
--- NOTE | 2023-11-19 08:23 | W.PN.NEPH.PH ---
Today's Communication / Plan
-
PD provided
Assessment/Plan
-
Assessment
-ESRD/PD
-volume overload
-CHF
-PAD
-HTN
-edema
-CAD/CABG
-DM2
Plan
-PD ordered, all 4.25%, 2L q4h
-there is a possibility that he will need to be converted to HD here depending on volume status, but so far stable
-keep MAP > 65, remains on pressor support
-replete K as needed
-follow Mg
-critical care time 31 minutes
Total Time Spent with Patient (in minutes): 31 minutes
-
-
Date of Service: November 19, 2023
CC / HPI / ROS
-
Chief Complaint:
ESRD
History of Present Illness:
PD with modest UF, with 4.25%
PD in progress
s/p code 9 with VT 11/17/23
on high flow O2
on pressors for hypotension
awake without complaints
Review of Systems:
no fever
no CP/SOB
Labs
-
Labs:
WBC 5.1 10^3/uL (4.8-10.8) 11/19/23 04:50
RBC 2.98 10^6/uL (4.70-6.10) L 11/19/23 04:50
Hgb 8.8 g/dL (13.0-18.0) L 11/19/23 04:50
Hct 27.0 % (39.0-52.0) L 11/19/23 04:50
Plt Count 134 10^3/uL (130-400) D 11/19/23 04:50
Sodium 131 mmol/L (135-145) L 11/19/23 04:50
Potassium 3.5 mmol/L (3.5-5.1) 11/19/23 04:50
Chloride 93 mmol/L (98-107) L 11/19/23 04:50
Carbon Dioxide 29 mmol/L (22-30) 11/19/23 04:50
BUN 46 mg/dl (9-20) H 11/19/23 04:50
Creatinine 8.7 mg/dL (0.7-1.3) H* 11/19/23 04:50
eGFR 6.27 11/19/23 04:50
Glucose 165 mg/dl (70-99) H 11/19/23 04:50
Calcium 7.7 mg/dl (8.4-10.2) L 11/19/23 04:50
Gfu-K-Gfnigkslgow Pept > 15623 pg/ml 11/17/23 14:15
Albumin 2.7 g/dl (3.5-5.0) L 11/12/23 13:11
Physical Exam
-
Vital Signs:
Vital Signs
Temp Pulse Resp BP Pulse Ox
98.1 F 62 19 113/61 97
11/19/23 07:58 11/19/23 07:00 11/19/23 07:00 11/19/23 04:00 11/19/23 07:38
Cardiovascular:: Regular rate and rhythm (with frequent ectopy)
Respiratory:: Bilateral: Coarse
Lung Excursion:: Normal
Abdomen:: Nontender
Bowel Sounds:: Normal
Extremity Edema:: None: Bilateral:
Sweeney Catheter: No
--- NOTE | 2023-11-19 08:30 | W.PN.UPDATE ---
Update Note
Progress Note Update
Peritoneal dialysis note
Systolic blood pressure currently supported with pressor support
2 L 2.5% every 4 hours exchanges provide
Flowsheets reviewed
U/f ~1.2L per day
--- NOTE | 2023-11-19 08:40 | PTOTSP ---
Speech Language Pathology
Pt seen for clinical bedside swallow evaluation. Voice clear with adequate volume. On HFNC. P.O. trials of puree, regular solids, and thin liquids provided. Adequate mastication, bolus formation, and A-P transit noted with no oral residue. No
overt signs of aspiration.
Recommend:
(1) Regular solids/thin liquids
(2) General aspiration precautions
(3) Meds as tolerated
(4) JEWEL BLOCKER AND SAWYER to sign off. Please reconsult as indicated.
[2023-11-19 08:41] LABS: Glucose - Point of Care 128 mg/dl (70-99)
--- NOTE | 2023-11-19 08:52 | W.PN.HOSP.TC ---
Addendum entered and electronically signed by Rex Yanez MD 11/19/23 21:23:
Stop antibiotics. Repeat EKG and Mg in am. Per cardio might need cardiac cath next week
Original Note:
Today's Communication/Plan
-
Continue IV antibiotics. Supplemental oxygen.
Assessment / Plan
Assessment / Plan
Physical exam:
General: Acutely ill.
HEENT: Normocephalic, Atraumatic and Moist Mucous Membranes
Respiratory: Decreased breath sounds bilateral. Crackles in the bases. No wheezes.
Cardiac: Regular Rhythm with extra beats, and S1/S2
GI: Soft, Nontender and Nondistended
Musculoskeletal: No Clubbing, No Cyanosis. Presence of edema
Neuro: Alert oriented, generalized weakness
Psych: Calm.
A/P:
#Cardiorespiratory arrest
-ROSC on 11/17
-Defer to cardiology if further ischemic workup would be pursued or not given cardiac event.
-Updated yesterday
Prior to today:
-Code called. V. tach-->TDP-->V Fib-->PEA. CPR abt 3 min and Epinephrine x3. V Fib s/p shock 360J x1--> ROSC achieved.
-IV magnesium ordered earlier but not given yet and was given during the code.
-Twelve-lead EKG with prolonged QTc
-I participated in the code along with the rest of the team.
-Discussed with cardiology team at bedside
-Updated over the phone today--> understanding of critical situation, and will also like to continue full medical efforts at this point in time.
-Venetian Blind Machine Operator consulted
-Avoid QTc prolonging medications at all cost.
-Might need cardiac catheterization but will defer to cardiology
-Plan for transthoracic echocardiogram--> EF 50%, mild concentric left ventricular hypertrophy, no significant changes from prior echo.
-WBC 7.2, globin 9.4, count 168 today
#Acute hypoxic respiratory failure
-Patient extubated yesterday on 11/18
-Continue supplemental oxygen
Prior to today:
-In the morning he was on 6 L of oxygen
-Obtained chest x-ray today on 11/17
-Start empirically on IV Zosyn and vancomycin obtain blood cultures prior.
-Patient deteriorated and went into cardiac arrest and now on mechanical ventilation
-Intubated by anesthesia during code.
-Pulmonary sales warehouse driver consulted
-Might need hemodialysis but defer to nephrology
# Sepsis/septic shock
-Continue Levophed and titrate as able
-Blood cultures obtained prior to antibiotics
-Zosyn and vancomycin
-Follow-up hemodynamic
#Hypokalemia
Replete and trend
#Hypomagnesemia
Magnesium 2.0 today
# Toxic metabolic encephalopathy
-Multifactorial in nature with uremia concerns and now possible sepsis contributing and hypoxia at this point
-Head CT with impression of no acute intracranial abnormality noted.Increased soft tissue attenuation in the 0deep subcutaneous tissues adjacent to the outer table of the posterior midline/left paramidline parietal region, raising the possibility of
posttraumatic soft tissue swelling/contusion. Clinical correlation recommended.
-UA negative. Blood cultures in lab negative so far. Afebrile.
-continue to monitor mentation
-MRI brain negative for acute stroke or pathology.
-Ativan has been held. Gabapentin is as needed. Not on any AVIONICS SUPERVISOR depressing agents.
-About to undergo EEG
-Mentation seems back to baseline.
# End-stage renal disease on peritoneal dialysis
#Anasarca 2/2 above
# Acute hypoxic respiratory insufficiency secondary to above
-Nephrology on consult
-Might need hemodialysis but defer to nephrology
-Calcitrol, calcium acetate
-Volume removal should help.
-Nephro on board.
-Creatinine 9.1 today
# Diabetic foot blister wound
-does not look infectious
-afebrile
-ctm
-wound care consulted
# CHF exacerbation
-BNP 48894
-Chest x-ray with impression of Findings suspicious for mild congestive heart failure.
-Strict SOLIS
-Daily weight
-Fluid restriction.
-ECHO noted EF of 55 to 60%. Diastolic function indeterminant.
-nephrology consulted
# Anemia of chronic kidney disease
-Hemoglobin stable at 9.8
-No active bleeding
-Continue to monitor
#Severe R PVD with claudication
#HX of vascular stenting (RLE x 2, LLE x 2)
-s/p angiopathy, right iliac artery,� balloon angioplasty and also status post OR on 06/13 for lysis� removal, SFA stent and external iliac stent
- continue ASA/Statin/cilostazol
-Gabapentin continued
-Coumadin prior to intubation, on 4 mg. INR 2.78 today
-daily PT/INR. INR 3.26
# RLE DVT
-On a/c warfarin for over 2 years
Essential HTN
- continue Norvasc
- continue bisoprolol dose increased to 10 mg twice daily
- Switch to p.o. hydralazine on discharge
IDDM
-sliding scale, lantus and pre-meal insulin started. Increase basal to 40 units and Premeal to 12.
-CHO diet
#HLD
- statin/Zetia
#CAD s/p CABG
- continue ASA/Statin/BB
Depression - Discontinue Zoloft since it can prolong QTc
DVT ppx: coumadin
Code: Full
Total time spent on today's encounter was 52 minutes which included time spent in counseling the patient/family regarding diagnosis and treatment plan as listed above, goals of care, and symptom management. Case was discussed with nursing staff,
specialists, and care coordinators/case management. All labs and imaging personally reviewed by me. Remainder the time spent in detailed review of previous records, lab data, imaging, and other medical provider documentation.
Anticipated Discharge: > 48 hours
Subjective/Interval History
-
Date of Service: November 19, 2023
Patient on supplemental oxygen. Afebrile. No chest pain today.
Objective Data
-
Labs:
Laboratory Results
11/19/23 11/19/23
04:50 07:29
WBC 5.1
Hgb 8.8 L
Hct 27.0 L
Plt Count 134 D
PT Pending
INR Pending
Sodium 131 L
Potassium 3.5
Chloride 93 L
Carbon Dioxide 29
BUN 46 H
Creatinine 8.7 H*
Glucose 165 H
Calcium 7.7 L
Vital Signs:
Vital Signs
Temp Pulse Resp BP Pulse Ox
98.1 F 62 19 113/61 97
11/19/23 07:58 11/19/23 07:00 11/19/23 07:00 11/19/23 04:00 11/19/23 07:38
I&O
11/18/23 11/19/23 11/20/23
06:59 06:59 06:59
Intake Total 311.4 / 329.4 651.1 / 658.1
Output Total 1550 / 1550 1250 / 1250
Balance -1238.6 / -1220.6 -598.9 / -591.9
Review of Systems
-
All other systems: Reviewed and negative
[2023-11-19] MEDS: PROTONIX IV 40 MG IV (09:08)
[2023-11-19] MEDS: NSS (PRESERVATIVE FREE) 10 ML IV (09:08)
[2023-11-19] MEDS: MAGNESIUM OXIDE 500 MG TUBE (09:08)
[2023-11-19] MEDS: MIRALAX 17 GRAMS TUBE (09:08)
[2023-11-19] MEDS: LOW STRENGTH ASPIRIN 81 MG TUBE (09:09)
[2023-11-19] MEDS: ZETIA 10 MG TUBE (09:09)
[2023-11-19] MEDS: TYLENOL 650 MG PO ×3 (09:10→21:56)
[2023-11-19] MEDS: MAGNESIUM SULFATE 102 GRAMS IV (09:37)
[2023-11-19 09:45] LABS: Glucose - Point of Care 103 mg/dl (70-99)
--- NOTE | 2023-11-19 10:06 | PN.DE.MGMTRT ---
Insulin Management
- -
11/18/2023 Diabetes Management Follow up
Admitted 11/12 for R foot wound, confusion, SOB, swelling. PMH renal failure with peritoneal dialysis, HTN, PVD type 2 diabetes. Prior to admission chart reflects he was taking 60 units Basaglar daily with NovoLog 28 units BID. A1C 8.6%. Patient
had cardiac arrest 11/16 now intubated on mechanical ventilation and insulin infusion. Prior to this patient was receiving Lantus in AM with AC NovoLog at reduced doses.
Will continue glycemic protocol at this time. If patient is weaned off of ventilator will assess for readiness to transition to subcutaneous insulin.
11/19/2023: Diabetes Management F/U:
Pt extubated last evening. Doing well, sitting up in bed, offers no complaints.
Glucose trended up to 197, remains on glycemic protocol requiring 0.8-7 units of insulin/ hr while NPO.
Pt was taking 60 units Basaglar daily with NovoLog 28 units BID OREMAN.
Will transition off drip. Give Lantus 30 units NOW, turn drip off 1 hr after.
Start AC NovoLog 8 units and moderate corrective insulin with meals. Start 1800 ADA diet. Accucheks AC/HS
Will follow for further needed insulin adjustments. Plan of care d/w pt and Nurse.
Diabetes History
- -
Type of Diabetes: 2 requiring insulin
Pre-Admission Diabetes Regimen
11/19/23
04:50
Creatinine 8.7 H*
Lab Results
Hemoglobin A1c 8.6 % (4.0-5.6) H 11/13/23 06:09
Insulin Pump Settings
IP Diabetes Regimen
11/18/23 11/18/23 11/18/23
11:20 12:22 13:32
Glucose
POC Glucose 98 182 H 179 H
11/18/23 11/18/23 11/18/23
15:28 17:30 19:31
Glucose
POC Glucose 97 170 H 137 H
11/18/23 11/18/23 11/19/23
21:35 23:22 01:33
Glucose
POC Glucose 138 H 151 H 97
11/19/23 11/19/23 11/19/23
03:29 04:39 04:50
Glucose 165 H
POC Glucose 197 H 180 H
11/19/23 11/19/23 11/19/23
06:23 07:43 08:30
Glucose
POC Glucose 180 H 173 H 128 H
11/19/23
09:34
Glucose
POC Glucose 103 H
Patient Education
[2023-11-19 10:43] LABS: Glucose - Point of Care 107 mg/dl (70-99)
[2023-11-19] MEDS: KCL 20 MEQ PO (11:22)
[2023-11-19 11:43] LABS: PT 50.7 Sec (11.4-14.6)
[2023-11-19] MEDS: LANTUS 0.299999999999999989 UNITS SC (12:17)
--- NOTE | 2023-11-19 12:25 | W.PN.CARDCBS ---
Today's Communication / Plan
-
Continue supportive care. Likely will need cardiac catheterization early next week.
Repeat EKG to follow QT interval.
Continue medical therapy for coronary artery disease for now. Continue aspirin and atorvastatin.
Continue peritoneal dialysis.
Hopefully can restart metoprolol and Norvasc over the next 24 hours.
Impression / Plan
-
PCP: Dr. Susan Starkey
Cardiology: Unknown
Nephrology: [facility]
Vascular surgery: Dr. Sweeney
Impression:
In-hospital cardiac arrest 11/17/23
VT arrest
s/p shock x1 and Epi x1 11/17/23
Prolonged QT
Admitted with TME, uremia and anasarca 11/12/23
ESRD on PD
failing at home PD due to cognitive dysfunction
Elevated Troponin
CAD s/p CABG outside hospital 1995
Acute HFpEF
Anasarca
PAD
fem pop bypass 2015
right CEA at [place] 03/2019
left CEA at [place] 07/2019
right SFA VICE PRESIDENT OF COMPLIANCE 2020
Chronic warfarin OAC for PAD
DM 2
Echo 11/15/23: EF 55-60%, trace MR
Echo 11/17/23: LVEF 50% with mild LVH. No significant valve disease.
Plan:
-Patient came to [facility] on 11/12/23 with increasing SOB after he had trouble keeping up with his home PD treatments and he was admitted with acute HF and volume overload, cardiology is now consulted after a VT arrest today. Patient was admitted 11/12/23
with anasarca, SOB and failing PD at home. Patient lives in [place] and follows with a perinatal specialist at [facility], but came to for care. Patient and also noted increasing somnolence and some confusion which overall seemed to be contributing to
trouble with maintaining PD treatments at home resulting in weight gain and SOB. Weight was up at least 10 lbs on admission. Patient was admitted and seen by nephrology at , PD was restarted in the hospital. Patient had an echo 11/15/23 that showed
a preserved EF. There is a h/o CABG at an outside hospital in 1995, primary technology engineer unknown and patient has never seen cardiology at before. Patient with hyperkalemia on admission that resolved with PD. QT was prolonged to 486 ms on ECG on
admission 11/12/23 in the setting of RBBB, then 522 ms 11/16/23, then 543 ms this afternoon at 1330. Patient with a run of VT and confusion noted by nursing around 1330 today and magnesium rider ordered. Last magnesium level was 1.6 on 11/16/23. Patient
then had sustained VT and cardiac arrest prompting code 9. Cardiology arrived with rest of the team. Patient undergoing CPR and received Epi x1 and shocked x1 with ROSC. Patient intubated by anesthesia team.
-He continues to slowly improve and continues with peritoneal dialysis. Potassium is normal.
-ECG remains abnormal with QTc of 557 ms. No further episodes of VT on telemetry. The etiology of his VT remains unclear.
-He has marked T wave abnormalities and likely will need a cardiac catheterization this hospitalization. I discussed this with him today.
-His troponin remains in the indeterminate zone. However his abnormal troponin could be from CPR.
-He has a known history of coronary disease status post CABG in 1995. Continue aspirin, atorvastatin, and midodrine
-Continue to hold metoprolol and Norvasc.
Progress Note - Proj Mgr
Subjective
Date of Service: November 19, 2023
Had a brief episode of chest pain earlier today which seem worse with coughing. Otherwise continues to slowly improve.
Objective
Labs:
11/19/23 04:50
11/19/23 04:50
Labs
Hgb 8.8 g/dL (13.0-18.0) L 11/19/23 04:50
Hct 27.0 % (39.0-52.0) L 11/19/23 04:50
Plt Count 134 10^3/uL (130-400) D 11/19/23 04:50
PT 50.7 Sec (11.4-14.6) H 11/19/23 11:03
INR 5.50 H* D 11/19/23 11:03
APTT 55.7 Sec (23.4-35.0) H 11/17/23 14:15
Sodium 131 mmol/L (135-145) L 11/19/23 04:50
Potassium 3.5 mmol/L (3.5-5.1) 11/19/23 04:50
BUN 46 mg/dl (9-20) H 11/19/23 04:50
Creatinine 8.7 mg/dL (0.7-1.3) H* 11/19/23 04:50
Glucose 165 mg/dl (70-99) H 11/19/23 04:50
Troponins
11/17/23 11/17/23 11/18/23
14:15 14:15 12:59
Troponin I Cancelled 0.083 H* 0.293 H*
11/18/23 11/19/23
23:03 04:50
Troponin I 0.188 H* 0.178 H*
Vital Signs and I&O:
Vital Signs
Temp Pulse Resp BP Pulse Ox
97.7 F 70 21 123/56 96
11/19/23 11:32 11/19/23 11:00 11/19/23 11:00 11/19/23 10:15 11/19/23 11:35
Vital Signs
Temp Pulse Resp BP Pulse Ox
97.7 F 70 21 123/56 96
11/19/23 11:32 11/19/23 11:00 11/19/23 11:00 11/19/23 10:15 11/19/23 11:35
Intake & Output
11/17/23 11/18/23 11/19/23 11/20/23
06:59 06:59 06:59 06:59
Intake Total 590 / 590 311.4 / 329.4 651.1 / 658.1 263.8 / 263.8
Output Total 2049 1550 / 1550 1250 / 1250 400 / 400
Balance -1460 / -1460 -1238.6 / -1220.6 -598.9 / -591.9 -136.2 / -136.2
Physical Exam
Physical Exam
GEN: No distress, awake, Ox3
HEENT: supple, anicteric, mmm
LUNGS: scatt rhonchi
CV: Reg, S1/S2, 1/6 syst LSB, no murmur
ABD: soft, BS+, NT/ND
EXT: No edema
NEURO: Gross non-focal
SKIN: No rash
[2023-11-19 12:28] LABS: Glucose - Point of Care 156 mg/dl (70-99)
--- NOTE | 2023-11-19 12:30 | PTCARENOTE ---
Systems reviewed. VSS. Pt ordered lantus and sliding scale to transition off insulin gtt. Pt remains on highflow 50L 65% and tolerating. Pt INR 5.50, Bar Host/Hostess MD and Hospitalist MD aware. Safe environment maintained. Cont with current plan.
[2023-11-19 13:31] LABS: Glucose - Point of Care 164 mg/dl (70-99)
[2023-11-19] MEDS: NOVOLOG FLEXPEN 8 UNITS SC (13:39)
[2023-11-19] MEDS: NOVOLOG FLEXPEN-MODERATE RESISTANCE 1 UNITS SC (13:39)
--- NOTE | 2023-11-19 14:54 | CM ---
CM following re: discharge planning.
Discussed in Rounds,reviewed pt's chart, met with pt. Per Rounds meeting, pt extubated yesterday, requires 50 L HFNC of O2, on insulin gtt, continue supportive care. Nephrology, Cardiology following.
Pt has been receiving PD at home managed by [facility]. Per Branch Coordinator it is a possibility that pt might be converted to HD treatment.
PT and OT will re-evaluate the pt to determine a level of care at discharge.
D/C plan: TBD and will depend on pt's progress.
CM will follow with discharge plan updates as hospitalization progresses
--- NOTE | 2023-11-19 16:34 | PN.CDI ---
CDI
- -
CDI:
Physician Documentation Request
Admit Date: 11/12/23 18:34
Dear Doctor Gini,
11/15 signed echo list rhythm as Atrial fibrillation.
Please indicate in your progress notes if you are in agreement that the above diagnosis is valid for this patient:
____ - Atrial fibrillation is a valid diagnosis (Please specify type)
____ - Atrial fibrillation is not a valid diagnosis for this patient
____ - Other
Use of terms such as suspected, likely, concern for, or probable are acceptable for a diagnosis that is being evaluated, monitored or treated as if it exists and can be coded in the inpatient setting, when documented at the time of discharge.
Thank you,
Evita Weldon RN, BSN
CDI Specialist
tiger text
Please use your independent medical judgment in providing your response.
--- NOTE | 2023-11-19 16:36 | PN.CDI ---
CDI
- -
CDI:
Physician Documentation Request
Admit Date: 11/12/23 18:34
Dear Doctor Renata,
Patient admitted with CHF and encephalopathy.
Recent sodium resulted as follows:
Laboratory Tests
11/17/23 11/17/23 11/17/23
04:46 14:15 22:19
Sodium 132 L 131 L 128 L
11/19/23
04:50
Sodium 131 L
Based on the above, could you provide a diagnosis that supports the above lab abnormalities and additional evaluation/monitoring:
Hyponatremia
Abnormal lab value clinically insignificant
Other
Use of terms such as suspected, likely, concern for, or probable (associated with a specific diagnosis that is being evaluated, monitored, or treated as if it exists) are acceptable and can be coded in the inpatient setting, when documented at the
time of discharge.
Thank you,
Evita Weldon RN, BSN
CDI Specialist
tiger text
Please use your independent medical judgment in providing your response.
[2023-11-19 16:48] LABS: Glucose - Point of Care 219 mg/dl (70-99)
[2023-11-19] MEDS: NOVOLOG FLEXPEN SC (17:32)
[2023-11-19] MEDS: TYLENOL PO (18:04)
[2023-11-19] MEDS: NOVOLOG FLEXPEN-MODERATE RESISTANCE 3 UNITS SC (18:04)
[2023-11-19] MEDS: ProAmatine PO (18:04)
[2023-11-19] MEDS: APRESOLINE 10 MG IV (18:36)
[2023-11-19] MEDS: DILAUDID 0.25 MG IV (18:37)
[2023-11-19] MEDS: XANAX 0.5 MG PO (20:23)
[2023-11-19] MEDS: MAGNESIUM OXIDE 500 MG PO (20:23)
[2023-11-19] MEDS: LOPRESSOR 12.5 MG PO (20:24)
[2023-11-19] MEDS: LIPITOR 40 MG PO (21:56)
[2023-11-19 22:47] LABS: Glucose - Point of Care 315 mg/dl (70-99)
[2023-11-19] MEDS: NOVOLOG FLEXPEN 7 UNITS SC (22:53)
[2023-11-20] VITALS (25 sets, daily range): BP systolic 88–166; BP diastolic 33–132; BMI 29.5
[2023-11-20] MEDS: ProAmatine PO ×3 (01:43→17:38)
[2023-11-20] MEDS: TYLENOL 650 MG PO ×3 (01:43→14:19)
[2023-11-20 03:25] LABS: Glucose - Point of Care 326 mg/dl (70-99)
[2023-11-20 03:25] LABS: % Basophils 0.6 % (0-2); % Eosinophils 1.1 % (0-6); % Immature Granulocytes 0.5 % (0-0.5); % Lymphocytes 6.9 % (20.5-51.1); % Monocytes 8.8 % (1.7-9.3); % Neutrophils 82.1 % (42.2-75.2); Absolute Eosinophils 0.1 10^3/uL (0-0.7); Absolute Lymphocytes 0.4 10^3/uL (1.2-3.4); Absolute Monocytes 0.6 10^3/uL (0.1-0.6); Absolute Neutrophils 5.1 10^3/uL (1.4-6.5); Hematocrit 28.4 % (39.0-52.0); Hemoglobin 9.3 g/dL (13.0-18.0); Mean Corp Hgb Conc. 32.7 g/dL (33.0-37.0); Mean Corpuscular Hgb 29.3 pg (27.0-31.0); Mean Corpuscular Volume 89.6 fL (80.0-94.0); Mean Platelet Volume 12.8 fL (7.4-10.4); Nucleated Red Blood Cells % 0 % (-); Platelet Count 147 10^3/uL (130-400); Red Blood Cell Count 3.17 10^6/uL (4.70-6.10); Red Cell Dist. Width 15.2 % (11.5-14.5); White Blood Cell Count 6.3 10^3/uL (4.8-10.8)
[2023-11-20] MEDS: NOVOLOG FLEXPEN 8 UNITS SC ×4 (03:32→16:02)
[2023-11-20 03:38] LABS: APTT 97.3 Sec (23.4-35.0)
[2023-11-20 03:51] LABS: INR 5.25
[2023-11-20] MEDS: MEPHYTON 5 MG PO (04:21)
--- NOTE | 2023-11-20 05:07 | PTCARENOTE ---
2000- Assumed care of patient at 1915. Patient AAOx2 (disoriented to time). Anxious. Restless in bed and tachypneic. Alternative methods attempted to calm patient; unsuccessful. Order for 0.5mg Xanax PO placed by MILITARY ADMINISTRATIVE TECHNICIAN; temporary improvement noted. NSR
with first degree avb, BBB, prolonged QT and PACs on tele monitor. Trace anasarca. Palpable pulses. POX 92-93% on HFNC 50L/60%. Lung sounds diminished throughout. TRISTAN. Appetite poor. Placed on bedpan for loose stool. No UOP. PD completed as ordered.
2200- Patient pulled out arterial line. Stating he did not know why a shoe was taped to his hand (arm board placed just prior in order to keep line in optimal position). Reorientation provided. HS fingerstick 315. Order for 7 units Novolog obtained.
0000- Systems reviewed; no changes in assessment. NSR-ST on tele monitor. Vitals stable. Scheduled Midodrine held per parameters. Patient pulling off HFNC multiple times in a row causing POX to drop into the 70's. Unable to be reoriented. B/l wrist
restraints applied to ensure patient safety.
0400- Minor changes in assessment. Patient now calm and communicating appropriately with staff. 0300 fingerstick resulted at 326. Additional 8 units of Novolog administered. AM labs drawn and resulted. INR 5.25. MILITARY ADMINISTRATIVE TECHNICIAN Vi Thorpe notified and order
for Vitamin K ordered and administered.
[2023-11-20 05:18] LABS: Blood Urea Nitrogen 49 mg/dl (9-20); Calcium 7.9 mg/dl (8.4-10.2); Carbon Dioxide 24 mmol/L (22-30); Chloride 91 mmol/L (98-107); Estimated Creatinine Clearance 11 ml/min; Glucose 339 mg/dl (70-99); Magnesium 2.1 mg/dl (1.6-2.3); Potassium 4.1 mmol/L (3.5-5.1); Sodium 130 mmol/L (135-145); eGFR 7.15
--- NOTE | 2023-11-20 05:33 | PTCARENOTE ---
Restraints removed at 0500. Bed alarm on and functioning. Patient alert and oriented at current time.
[2023-11-20] MEDS: APRESOLINE 10 MG IV (05:52)
--- NOTE | 2023-11-20 07:44 | W.PN.INTV ---
Today's Communication / Plan
Recommendations
O2
PD
Beta-mike
Left heart cath next week
Can transfer to telemetry
Assessment
-
Assessment:
Mr Blair Thakkar is a 63/M adm 11-12 with confusion and EV edema. Known h/o CKD on PD, recently not able to do PD himself due to confusion, did. At ER, confused, hypoxemic. Seen by Neurology, no acute findings on CT and MRI brain. Seen by
Renal, resumed PD soon after adm. VTach episode on night 11-16, received IV Mag with resolution. VTach returned on early afternoon 11-17, started Mag IV infusion, MS continued deteriorating, became unresponsive, VTach deteriorated to TDP, then
VFib, shock at 360K x1, developed PEA, received 3 doses epinephrine, total CPR time about 3 min with ROSC, intubated by anesthesia with no reported difficulty
Impression:
Cardiac arrest 11-17-23
VTach, TDP, VFib, PEA
Low normal serum Mg on 11-16 and given IV Mag on 11-16 and also 11-17 (Mg was running at time of arrest)
Conditions [place] [place]:
CKD on PD
CAD s/p CABG
PVD s/p bilateral EV stenting
Emergent stenting RLE Jun 2021 ()
DM
HTN
HLD
Depression
Obesity
Plan:
VTach evening 11-16
Low normal Mag, replaced IV at time of event
No gross e-lyte abnormalities at time of VTach, TDP, VFib/PEA
Cardiac arrest 11-17
Intubated with no reported difficulty
CPR, 3 epi doses, shock x1 at 360. CPR for about 3 min till ROSC
Moving EV weakly, swallowing activity noted after arrest
No candidate for hypothermia
MS monitored, was able to open eyes and follow simple commands
MV with good performance on SBT 11-18
Appropriate weaning, extubated with no issue 11-18
Empiric atbs started by adm svce 11-17: vanco/zosyn
MRSA negative, d/c vanco 11-18
Low threshold to d/c zosyn: d/c'ed 11-19 and observe
Blood cxs so far negative
Resp secs cx negative
NE off since 11-18
Glycemic control: IV insulin gtt initially, now transitioned to lantus and AC novolog 11-19
ADA 1800 luh diet
Cards saw patient at time of arrest and will follow
D/w Dr Beverly, initially deemed poor candidate for revascularization given baseline and ongoing MS changes [place] [place] but continues following (d/w Dr Myers)
Oral BB
Cards following, for LHC early next week
On chronic PD
Renal suspected PD no longer viable group home, rec to evaluate for HD as outpatient, now considering as inpatient, will need HD cath (ideally trilumen cath by IRad)
On chronic coumadin for h/o PVD s/p stents
Held since 11-17, follow INR which remains elevated
Stable for transfer to telemetry
Diagnostic tests:
CXR 11-17- pm: interim intubation and GT. pulm vasc and parenchymal congestion.
CXR - and - AM, portable, improved pulm vasc and parenchymal congestion, sternotomy
TTE 11-17-23 (post cardiac arrest)
CONCLUSIONS
Limited study
Normal left ventricular chamber size. Mild concentric left ventricular
hypertrophy. Normal left ventricular systolic function. Left ventricular
ejection fraction is 50% by Grimaldo' s method. Diastology not assessed.
Since echocardiogram November 15, 2023 which was reviewed, there is no
significant change.
TTE 11-15-23
CONCLUSIONS
Normal left ventricular chamber size. Normal left ventricular systolic
function. Normal regional wall motion. Mild concentric left ventricular
hypertrophy. Left ventricular ejection fraction is 55-60% by visual estimate.
Diastolic function indeterminate due to atrial fibrillation.
Mildly thickened mitral valve leaflets. Mitral annular calcification. Mitral
valve opens normally. Trace mitral regurgitation.
Subjective Dataa
Subjective Data
Date of Service:
Date of Service: November 20, 2023
Chief Complaint: Feather Stitcher Follow Up
Subjective:
No major events reported overnight
Transitioned from high flow nasal cannula to nasal cannula 15 L, saturation 91%
Denies major complaints
Review of Systems
General: Fever (n), Sweats (n) and Chills
HEENT: Dysphagia (n)
Cardiopulmonary: Dyspnea, Cough (trace), Sputum Production (n) and Chest Pain (n)
GI: Abdominal Pain, Nausea and Vomiting (n)
Neuro: Weakness
Objective Data
Data Reviewed
Vital Signs / I&O / Oxygen:
Vital Signs
Temp Pulse Resp BP Pulse Ox
98.3 F 65 19 148/57 96
11/20/23 03:36 11/20/23 06:00 11/20/23 06:00 11/20/23 06:00 11/20/23 06:00
Intake and Output
11/19/23 11/20/23 11/21/23
06:59 06:59 06:59
Intake Total 651.1 / 658.1 867.4 / 867.4
Output Total 1250 / 1250 1255 / 1255
Balance -598.9 / -591.9 -387.6 / -387.6
SaO2 [CPAP/PSV] 95
SaO2 [A/C] 96
SaO2 96
Nasal Cannula flow liters per 50
minute
Physical Exam
General: Comfortable
HEENT: Normocephalic and Moist Mucous Membranes
Cardiovascular: Regular Rhythm, Murmur (n) and Peripheral Edema (n)
Respiratory: Clear, Non-Labored Respirations and Stridor (n)
GI: Soft, Non Distended and Non Tender
Neurology: Awake, Oriented and No Motor Deficits
Skin: Dry
Labs/Micro/Reports
Lab Data
11/20/23 03:15
11/20/23 03:15
Laboratory Results
11/19/23 11/20/23
11:03 03:15
PT 50.7 H 49.0 H
INR 5.50 H* D 5.25 H*
APTT 97.3 H
Microbiology
11/17/23 13:16 Blood/Venous Blood Culture - Preliminary
No Growth in 48 hours- Final report to follow
11/18/23 11:50 Blood/Venous Blood Culture - Preliminary
No Growth in 24 hours- Final report to follow
11/18/23 09:27 Tracheal Aspirate Respiratory Culture - Preliminary
Usual Respiratory Amelie
11/18/23 09:27 Tracheal Aspirate Gram Stain - Preliminary
11/17/23 13:04 Nose Nasal Screen MRSA (PCR) - Final
MRSA not detected - performed by PCR methodology.
11/12/23 13:11 Blood/Venous Blood Culture - Final
No Growth - Final Report
[2023-11-20 07:48] LABS: Glucose - Point of Care 347 mg/dl (70-99)
[2023-11-20] MEDS: NOVOLOG FLEXPEN-MODERATE RESISTANCE 7 UNITS SC (07:54)
[2023-11-20] MEDS: ZETIA 10 MG PO (07:55)
[2023-11-20] MEDS: LANTUS 0.299999999999999989 UNITS SC (07:55)
[2023-11-20] MEDS: LOPRESSOR 25 MG PO ×2 (07:55→19:26)
[2023-11-20] MEDS: MAGNESIUM OXIDE 500 MG PO ×2 (07:55→19:25)
[2023-11-20] MEDS: PROTONIX IV 40 MG IV (07:55)
[2023-11-20] MEDS: LOW STRENGTH ASPIRIN 81 MG PO (07:55)
[2023-11-20] MEDS: MIRALAX PO (07:56)
[2023-11-20] MEDS: NSS (PRESERVATIVE FREE) 10 ML IV (07:56)
--- NOTE | 2023-11-20 07:58 | W.PN.NEPH.PH ---
Today's Communication / Plan
-
PD provided
Assessment/Plan
-
Assessment
-ESRD/PD
-volume overload
-CHF
-PAD
-HTN
-edema
-CAD/CABG
-DM2
-Hyponatremia
Plan
-PD ordered, alternat 4.25% with 2.5% (weights down significantly), 2L q4h
-will need cardiac cath early next week
-there is a possibility that he will need to be converted to HD here depending on volume status, but so far stable
-keep MAP > 65, remains on pressor support
-replete K as needed
-follow Mg
-hyponatremia is a function of hyperglycemia this am
-critical care time 31 minutes
-
-
Date of Service: November 20, 2023
CC / HPI / ROS
-
Chief Complaint:
ESRD
History of Present Illness:
PD with modest UF, with 4.25%
PD in progress
s/p code 9 with VT 11/17/23
on high flow O2
Review of Systems:
no fever
no CP
on high flow
Labs
-
Labs:
WBC 6.3 10^3/uL (4.8-10.8) 11/20/23 03:15
RBC 3.17 10^6/uL (4.70-6.10) L 11/20/23 03:15
Hgb 9.3 g/dL (13.0-18.0) L 11/20/23 03:15
Hct 28.4 % (39.0-52.0) L 11/20/23 03:15
Plt Count 147 10^3/uL (130-400) 11/20/23 03:15
Sodium 130 mmol/L (135-145) L 11/20/23 03:15
Potassium 4.1 mmol/L (3.5-5.1) 11/20/23 03:15
Chloride 91 mmol/L (98-107) L 11/20/23 03:15
Carbon Dioxide 24 mmol/L (22-30) 11/20/23 03:15
BUN 49 mg/dl (9-20) H 11/20/23 03:15
Creatinine 7.8 mg/dL (0.7-1.3) H* 11/20/23 03:15
eGFR 7.15 11/20/23 03:15
Glucose 339 mg/dl (70-99) H 11/20/23 03:15
Calcium 7.9 mg/dl (8.4-10.2) L 11/20/23 03:15
Bng-R-Izjnbetewfl Pept > 16056 pg/ml 11/17/23 14:15
Albumin 2.7 g/dl (3.5-5.0) L 11/12/23 13:11
Physical Exam
-
Vital Signs:
Vital Signs
Temp Pulse Resp BP Pulse Ox
98.3 F 65 19 148/57 96
11/20/23 03:36 11/20/23 06:00 11/20/23 06:00 11/20/23 06:00 11/20/23 06:00
Cardiovascular:: Regular rate and rhythm (tachy)
Respiratory:: Bilateral: Coarse
Lung Excursion:: Normal
Abdomen:: Nontender and Soft
Bowel Sounds:: Normal
Extremity Edema:: None: Bilateral:
Sweeney Catheter: No
--- NOTE | 2023-11-20 08:00 | PTCARENOTE ---
Patient received from manufacturing shift supervisor, presents as assessed. Patient is alert and oriented x3, forgetful. CAPITAN GRANDE bilaterally. NSR on the monitor with ectopy. Generalized anasarca noted. Patient maintains on HFNC, weaned per respiratory therapist. Abdomen
round, firm, distended, tender to palpation in the right lower quadrant. PD cath in place, patient maintained on PD schedule per nephrology order. Wound dressings CDI. Patient resting comfortably in bed, offers no complaints at this time.
--- NOTE | 2023-11-20 08:04 | W.PN.UPDATE ---
Update Note
Progress Note Update
PD note:
change baths to alternate 2.5%/4.25%
2L q4hr exchanges
flow sheets reviewed
--- NOTE | 2023-11-20 08:55 | W.PN.CARDCBS ---
Today's Communication / Plan
-
Having episodes of A. tach. Increase metoprolol to 25 mg p.o. twice daily.
Wean oxygen as tolerated. Continue with peritoneal dialysis.
Plan will be for cardiac catheterization on Wednesday.
Impression / Plan
-
PCP: Dr. Susan Starkey
Cardiology: Unknown
Nephrology: [facility]
Vascular surgery: Dr. Sweeney
Impression:
In-hospital cardiac arrest 11/17/23
VT arrest
s/p shock x1 and Epi x1 11/17/23
Prolonged QT
Admitted with TME, uremia and anasarca 11/12/23
ESRD on PD
failing at home PD due to cognitive dysfunction
Elevated Troponin
CAD s/p CABG outside hospital 1995
Acute HFpEF
Anasarca
PAD
fem pop bypass 2015
right CEA at [place] 03/2019
left CEA at [place] 07/2019
right SFA APPLICATION OPERATIONS ENGINEER 2020
Chronic warfarin OAC for PAD
DM 2
Echo 11/15/23: EF 55-60%, trace MR
Echo 11/17/23: LVEF 50% with mild LVH. No significant valve disease.
Plan:
-Patient came to [facility] on 11/12/23 with increasing SOB after he had trouble keeping up with his home PD treatments and he was admitted with acute HF and volume overload, cardiology is now consulted after a VT arrest today. Patient was admitted 11/12/23
with anasarca, SOB and failing PD at home. Patient lives in [place] and follows with a leather cleaner at [facility], but came to for care. Patient and also noted increasing somnolence and some confusion which overall seemed to be contributing to
trouble with maintaining PD treatments at home resulting in weight gain and SOB. Weight was up at least 10 lbs on admission. Patient was admitted and seen by nephrology at , PD was restarted in the hospital. Patient had an echo 11/15/23 that showed
a preserved EF. There is a h/o CABG at an outside hospital in 1995, primary instructional media services technician unknown and patient has never seen cardiology at before. Patient with hyperkalemia on admission that resolved with PD. QT was prolonged to 486 ms on ECG on
admission 11/12/23 in the setting of RBBB, then 522 ms 11/16/23, then 543 ms this afternoon at 1330. Patient with a run of VT and confusion noted by nursing around 1330 today and magnesium rider ordered. Last magnesium level was 1.6 on 11/16/23. Patient
then had sustained VT and cardiac arrest prompting code 9. Cardiology arrived with rest of the team. Patient undergoing CPR and received Epi x1 and shocked x1 with ROSC. Patient intubated by anesthesia team.
-He continues to slowly improve and continues with peritoneal dialysis. Potassium is normal. Remains on high flow oxygen. Wean as tolerated.
-ECG remains abnormal with QTc of 584 ms. No further episodes of VT on telemetry. The etiology of his VT remains unclear. Having intermittent episodes of atrial tachycardia. Will increase metoprolol to 25 mg twice daily.
-He has marked T wave abnormalities and likely will need a cardiac catheterization on Wednesday.
-His troponin remains in the indeterminate zone. However his abnormal troponin could be from CPR.
-He has a known history of coronary disease status post CABG in 1995. Continue aspirin, atorvastatin, and midodrine
Progress Note - Blanket Winder Helper
Subjective
Date of Service: November 20, 2023
No new chest pains. Still on high-dose oxygen.
Objective
Labs:
11/20/23 03:15
11/20/23 03:15
Labs
Hgb 9.3 g/dL (13.0-18.0) L 11/20/23 03:15
Hct 28.4 % (39.0-52.0) L 11/20/23 03:15
Plt Count 147 10^3/uL (130-400) 11/20/23 03:15
PT 49.0 Sec (11.4-14.6) H 11/20/23 03:15
INR 5.25 H* 11/20/23 03:15
APTT 97.3 Sec (23.4-35.0) H 11/20/23 03:15
Sodium 130 mmol/L (135-145) L 11/20/23 03:15
Potassium 4.1 mmol/L (3.5-5.1) 11/20/23 03:15
BUN 49 mg/dl (9-20) H 11/20/23 03:15
Creatinine 7.8 mg/dL (0.7-1.3) H* 11/20/23 03:15
Glucose 339 mg/dl (70-99) H 11/20/23 03:15
Troponins
11/17/23 11/17/23 11/18/23
14:15 14:15 12:59
Troponin I Cancelled 0.083 H* 0.293 H*
11/18/23 11/19/23
23:03 04:50
Troponin I 0.188 H* 0.178 H*
Vital Signs and I&O:
Vital Signs
Temp Pulse Resp BP Pulse Ox
98.1 F 65 19 148/57 94
11/20/23 07:30 11/20/23 06:00 11/20/23 06:00 11/20/23 06:00 11/20/23 08:08
Vital Signs
Temp Pulse Resp BP Pulse Ox
98.1 F 65 19 148/57 94
11/20/23 07:30 11/20/23 06:00 11/20/23 06:00 11/20/23 06:00 11/20/23 08:08
Intake & Output
11/18/23 11/19/23 11/20/23 11/21/23
06:59 06:59 06:59 06:59
Intake Total 311.4 / 329.4 651.1 / 658.1 867.4 / 867.4
Output Total 1550 / 1550 1250 / 1250 1255 / 1255
Balance -1238.6 / -1220.6 -598.9 / -591.9 -387.6 / -387.6
Physical Exam
Physical Exam
GEN: No distress, awake, Ox3
HEENT: supple, anicteric, mmm
LUNGS: scatt rhonchi
CV: Reg, S1/S2, 1/6 syst LSB, no gallop
ABD: soft, BS+, NT/ND
EXT: No edema
NEURO: Gross non-focal
SKIN: No rash
--- NOTE | 2023-11-20 09:33 | W.PN.HOSP.TC ---
Addendum entered and electronically signed by Rex Yanez MD 11/20/23 18:01:
Hyponatremia
Original Note:
Today's Communication/Plan
-
Oxygen supplementation, increased beta-blockers, cardiac monitoring.
Assessment / Plan
Assessment / Plan
Physical exam:
General: Acutely ill.
HEENT: Normocephalic, Atraumatic and Moist Mucous Membranes
Respiratory: Decreased breath sounds bilateral. Crackles in the bases. No wheezes.
Cardiac: Regular Rhythm with extra beats, and S1/S2
GI: Soft, Nontender and Nondistended
Musculoskeletal: No Clubbing, No Cyanosis. Presence of edema
Neuro: Alert oriented, generalized weakness
Psych: Calm.
A/P:
#Cardiorespiratory arrest
-ROSC on 11/17
-Cardiology planning cardiac catheterization on Wednesday-absolutely agree with ischemic workup as planned by cardiology.
-On aspirin, beta-blockers increased metoprolol 25 mg twice a day, on statin atorvastatin 40 mg p.o. nightly.
-Continue oxygen supplementation and wean as able
-Peritoneal dialysis today per nephrology
-Latest EKG if QTc is 450 which is an improvement from prior EKGs(>500's).
Prior to today:
-Code called. V. tach-->TDP-->V Fib-->PEA. CPR abt 3 min and Epinephrine x3. V Fib s/p shock 360J x1--> ROSC achieved.
-IV magnesium ordered earlier but not given yet and was given during the code.
-Twelve-lead EKG with prolonged QTc
-I participated in the code along with the rest of the team.
-Discussed with cardiology team at bedside
-Updated over the phone--> understanding of critical situation, and will also like to continue full medical efforts at this point in time.
-Grievance And Appeals Specialist consulted
-Avoid QTc prolonging medications at all cost.
-Might need cardiac catheterization but will defer to cardiology
-Transthoracic echocardiogram--> EF 50%, mild concentric left ventricular hypertrophy, no significant changes from prior echo.
#Chest pain
-Today chest pain on 11/20 appears atypical probably related to CPR. Nonetheless, given history of CAD and unknown current CAD status, will add nitro as needed.
-Also obtained twelve-lead EKG and pretty much unremarkable from prior EKGs. Did not obtain cardiac enzymes given his end-stage renal disease and plan for cardiac cath on Wednesday.
-Tylenol as needed.
-On aspirin, beta-blockers increased metoprolol 25 mg twice a day, on statin atorvastatin 40 mg p.o. nightly.
-Continue to monitor
#Acute hypoxic respiratory failure
-Patient extubated yesterday on 11/18
-Continue supplemental oxygen
Prior to today:
-In the morning he was on 6 L of oxygen
-Obtained chest x-ray today on 11/17
-Start empirically on IV Zosyn and vancomycin obtain blood cultures prior.
-Patient deteriorated and went into cardiac arrest and now on mechanical ventilation
-Intubated by anesthesia during code.
-Pulmonary software sales manager consulted
-Nephrology feels peritoneal dialysis enough at this point.
# Ruled out sepsis/septic shock
-Antibiotics discontinued
-Off pressors
#Hypokalemia
Replete and trend
#Hypomagnesemia
-Magnesium 2.1 today
-On magnesium oxide 500 mg twice a day
-Will continue to monitor in light of recent cardiorespiratory event
# Toxic metabolic encephalopathy
-Multifactorial in nature with uremia concerns and now possible sepsis contributing and hypoxia at this point
-Head CT with impression of no acute intracranial abnormality noted.Increased soft tissue attenuation in the 0deep subcutaneous tissues adjacent to the outer table of the posterior midline/left paramidline parietal region, raising the possibility of
posttraumatic soft tissue swelling/contusion. Clinical correlation recommended.
-UA negative. Blood cultures in lab negative so far. Afebrile.
-continue to monitor mentation
-MRI brain negative for acute stroke or pathology.
-Ativan has been held. Gabapentin is as needed. Not on any HEATING AND VENTILATING DRAFTER depressing agents.
-About to undergo EEG
-Mentation seems back to baseline.
# End-stage renal disease on peritoneal dialysis
#Anasarca 2/2 above
# Acute hypoxic respiratory insufficiency secondary to above
-Nephrology on consult
-Might need hemodialysis but defer to nephrology
-Calcitrol, calcium acetate
-Volume removal should help.
-Nephro on board.
# Diabetic foot blister wound
-does not look infectious
-afebrile
-ctm
-wound care consulted
# CHF exacerbation
-BNP [id number]
-Chest x-ray with impression of Findings suspicious for mild congestive heart failure.
-Strict SOLIS
-Daily weight
-Fluid restriction.
-ECHO noted EF of 55 to 60%. Diastolic function indeterminant.
-nephrology consulted
# Anemia of chronic kidney disease
-Hemoglobin stable
-No active bleeding
-Continue to monitor
#Severe R PVD with claudication
#HX of vascular stenting (RLE x 2, LLE x 2)
-s/p angiopathy, right iliac artery,� balloon angioplasty and also status post OR on 06/13 for lysis� removal, SFA stent and external iliac stent
- continue ASA/Statin/cilostazol
-Gabapentin continued
-Coumadin prior to intubation, on 4 mg. INR 2.78 today
-daily PT/INR. INR 3.26
# RLE DVT
-On a/c warfarin for over 2 years
Essential HTN
- continue Norvasc
- continue bisoprolol dose increased to 10 mg twice daily
- Switch to p.o. hydralazine on discharge
IDDM
-sliding scale, lantus and pre-meal insulin. Basal 30 units and aspart 8 units before meals.
-CHO diet
#HLD
- statin/Zetia
#CAD s/p CABG
- continue ASA/Statin/BB
Depression - Discontinued Zoloft
DVT ppx: coumadin--> continue to hold this plan for cardiac cath and INR 5.25 today
Code: Full
Total time spent on today's encounter was 52 minutes which included time spent in counseling the patient/family regarding diagnosis and treatment plan as listed above, goals of care, and symptom management. Case was discussed with nursing staff,
specialists, and care coordinators/case management. All labs and imaging personally reviewed by me. Remainder the time spent in detailed review of previous records, lab data, imaging, and other medical provider documentation.
Anticipated Discharge: > 48 hours
Subjective/Interval History
-
Date of Service: November 20, 2023
Patient complains of mid sternum chest pain today worsened with movement and reproducible on palpation. No shortness of breath, no palpitations, no diaphoresis, no syncope. He had episodes of paroxysmal atrial tachycardia. On supplemental oxygen.
Objective Data
-
Labs:
Laboratory Results
11/20/23
03:15
WBC 6.3
Hgb 9.3 L
Hct 28.4 L
Plt Count 147
PT 49.0 H
INR 5.25 H*
APTT 97.3 H
Sodium 130 L
Potassium 4.1
Chloride 91 L
Carbon Dioxide 24
BUN 49 H
Creatinine 7.8 H*
Glucose 339 H
Calcium 7.9 L
Vital Signs:
Vital Signs
Temp Pulse Resp BP Pulse Ox
98.1 F 68 15 156/71 90
11/20/23 07:30 11/20/23 08:30 11/20/23 08:30 11/20/23 08:00 11/20/23 08:30
I&O
11/19/23 11/20/23 11/21/23
06:59 06:59 06:59
Intake Total 651.1 / 658.1 867.4 / 867.4
Output Total 1250 / 1250 1255 / 1255
Balance -598.9 / -591.9 -387.6 / -387.6
Review of Systems
-
All other systems: Reviewed and negative
[2023-11-20] MEDS: TYLENOL PO ×3 (10:39→21:55)
--- NOTE | 2023-11-20 12:00 | PTCARENOTE ---
Patient tolerated PD session without issue. Transitioned to 15l MFNC. Patient offers no complaints at this time.
[2023-11-20 12:02] LABS: Glucose - Point of Care 253 mg/dl (70-99)
[2023-11-20] MEDS: NOVOLOG FLEXPEN-MODERATE RESISTANCE 5 UNITS SC (12:13)
--- NOTE | 2023-11-20 14:36 | PTCARENOTE ---
Patient complains of epigastric/lower chest pain. Attending at bedside. Per attending administer PRN tylenol first and obtain EKG. If chest pain persists administer PRN nitroglycerin.
[2023-11-20] MEDS: NOVOLOG FLEXPEN-MODERATE RESISTANCE 1 UNITS SC (16:02)
[2023-11-20 16:12] LABS: Glucose - Point of Care 154 mg/dl (70-99)
--- NOTE | 2023-11-20 17:39 | PTCARENOTE ---
Pt noted to have epistaxis, O2 humidified and ocean spray requested from pharmacy.
[2023-11-20] MEDS: LIPITOR 40 MG PO (21:55)
[2023-11-20 22:51] LABS: Glucose - Point of Care 124 mg/dl (70-99)
[2023-11-21] VITALS (23 sets, daily range): BP systolic 61–170; BP diastolic 33–103; PULSE 4–76; BMI 28.9
[2023-11-21] MEDS: TYLENOL PO ×6 (03:03→20:54)
[2023-11-21] MEDS: ProAmatine PO ×3 (03:03→17:59)
--- NOTE | 2023-11-21 04:38 | PTCARENOTE ---
Patient transferred to IMU with belongings.
[2023-11-21 05:45] LABS: % Basophils 0.3 % (0-2); % Eosinophils 0.5 % (0-6); % Immature Granulocytes 0.5 % (0-0.5); % Lymphocytes 5.3 % (20.5-51.1); % Neutrophils 86.4 % (42.2-75.2); Absolute Lymphocytes 0.4 10^3/uL (1.2-3.4); Absolute Monocytes 0.5 10^3/uL (0.1-0.6); Absolute Neutrophils 6.3 10^3/uL (1.4-6.5); Hematocrit 30.2 % (39.0-52.0); Hemoglobin 10.2 g/dL (13.0-18.0); Mean Corp Hgb Conc. 33.8 g/dL (33.0-37.0); Mean Corpuscular Hgb 29.3 pg (27.0-31.0); Mean Corpuscular Volume 86.8 fL (80.0-94.0); Mean Platelet Volume 12.5 fL (7.4-10.4); Nucleated Red Blood Cells % 0 % (-); Platelet Count 183 10^3/uL (130-400); Red Blood Cell Count 3.48 10^6/uL (4.70-6.10); Red Cell Dist. Width 15.6 % (11.5-14.5); White Blood Cell Count 7.3 10^3/uL (4.8-10.8)
--- NOTE | 2023-11-21 06:15 | PTCARENOTE ---
Pt received as transfer from ICU to IMU. PD completed and as documented. Pt oriented to room and surroundings. Call lin remains within reach. Will continue to monitor.
[2023-11-21 06:27] LABS: Blood Urea Nitrogen 50 mg/dl (9-20); Calcium 8.2 mg/dl (8.4-10.2); Carbon Dioxide 28 mmol/L (22-30); Chloride 95 mmol/L (98-107); Estimated Creatinine Clearance 9 ml/min; Glucose 255 mg/dl (70-99); Magnesium 2.2 mg/dl (1.6-2.3); Potassium 4.5 mmol/L (3.5-5.1); Sodium 131 mmol/L (135-145); eGFR 7.26
--- NOTE | 2023-11-21 07:37 | W.PN.HOSP.TC ---
Addendum entered and electronically signed by Rex Yanez MD 11/21/23 16:54:
I discussed with and she definitely wants to keep 's status full code. He has expressed otherwise before but ultimately deferred to his for final decision. She also would discuss with him again after cardiac cath results if results
are relevant to his prognosis.
I will start him on anticoagulation of heparin drip pending cardiac cath and sub-therapeutic INR today.
I have also discussed with pulmonary, cardiology, and nephrology. Cardiac cath will be right and left since volume status is not very clear and differences of opinion exists.
Original Note:
Today's Communication/Plan
-
Start BiPAP today.
Assessment / Plan
Assessment / Plan
Physical exam:
General: Acutely ill.
HEENT: Normocephalic, Atraumatic and Moist Mucous Membranes
Respiratory: Respiratory distress present. Increased work of breathing. Bilateral Crackles in the bases. No wheezes. No rhonchi
Cardiac: Regular Rhythm and tachycardic, and S1/S2
GI: Soft, Nontender and Nondistended
Musculoskeletal: No Clubbing, No Cyanosis. Presence of edema
Neuro: Alert oriented, generalized weakness
Psych: Calm.
A/P:
# Acute hypoxic respiratory failure, worsening today on 11/21
-Patient on 15 L 100% of oxygen
-Obtain stat chest x-ray
-Obtain stat ABG--> 7.53, 33, 59, 27.6
-Place immediately on BiPAP /8 15L oxygen and titrate as able
-Discussed with patient about reintubation if needed and patient is hesitant and would like to discuss with his . I told him that we would keep him full code, but if he changes his mind we will update his CODE STATUS anytime.
-Reconsult pulmonary today
-Plan for PD today per nephrology
-Monitor respiratory status closely
-Patient at very high risk of respiratory deterioration or compromise
-Beta-blockers increased today due to episodes of atrial tachycardia (no ventricular arrhythmias).
-Plan for tentatively cardiac cath in a.m.
#Cardiorespiratory arrest
-ROSC on 11/17
-Cardiology planning cardiac catheterization on Wednesday-absolutely agree with ischemic workup as planned by cardiology.
-On aspirin, beta-blockers increased metoprolol 25 mg twice a day, on statin atorvastatin 40 mg p.o. nightly.
-Continue oxygen supplementation and wean as able
-Peritoneal dialysis today per nephrology
-Latest EKG if QTc is 450 which is an improvement from prior EKGs(>500's).
Prior to today:
-Code called. V. tach-->TDP-->V Fib-->PEA. CPR abt 3 min and Epinephrine x3. V Fib s/p shock 360J x1--> ROSC achieved.
-IV magnesium ordered earlier but not given yet and was given during the code.
-Twelve-lead EKG with prolonged QTc
-I participated in the code along with the rest of the team.
-Discussed with cardiology team at bedside
-Updated over the phone--> understanding of critical situation, and will also like to continue full medical efforts at this point in time.
-Prescription Clerk Lenses consulted
-Avoid QTc prolonging medications at all cost.
-Might need cardiac catheterization but will defer to cardiology
-Transthoracic echocardiogram--> EF 50%, mild concentric left ventricular hypertrophy, no significant changes from prior echo.
#Chest pain
-Today chest pain on 11/20 appears atypical probably related to CPR. Nonetheless, given history of CAD and unknown current CAD status, will add nitro as needed.
-Also obtained twelve-lead EKG and pretty much unremarkable from prior EKGs. Did not obtain cardiac enzymes given his end-stage renal disease and plan for cardiac cath on Wednesday.
-Tylenol as needed.
-On aspirin, beta-blockers increased metoprolol 25 mg twice a day, on statin atorvastatin 40 mg p.o. nightly.
-Continue to monitor
#Acute hypoxic respiratory failure from prior
-Patient extubated yesterday on 11/18
-Continue supplemental oxygen
Prior to today:
-In the morning he was on 6 L of oxygen
-Obtained chest x-ray today on 11/17
-Start empirically on IV Zosyn and vancomycin obtain blood cultures prior.
-Patient deteriorated and went into cardiac arrest and now on mechanical ventilation
-Intubated by anesthesia during code.
-Pulmonary car refinisher consulted
-Nephrology feels peritoneal dialysis enough at this point.
# Ruled out sepsis/septic shock
-Antibiotics discontinued
-Off pressors
#Hypokalemia
Replete and trend
#Hypomagnesemia
-Magnesium 2.1 today
-On magnesium oxide 500 mg twice a day
-Will continue to monitor in light of recent cardiorespiratory event
# Toxic metabolic encephalopathy
-Multifactorial in nature with uremia concerns and now possible sepsis contributing and hypoxia at this point
-Head CT with impression of no acute intracranial abnormality noted.Increased soft tissue attenuation in the 0deep subcutaneous tissues adjacent to the outer table of the posterior midline/left paramidline parietal region, raising the possibility of
posttraumatic soft tissue swelling/contusion. Clinical correlation recommended.
-UA negative. Blood cultures in lab negative so far. Afebrile.
-continue to monitor mentation
-MRI brain negative for acute stroke or pathology.
-Ativan has been held. Gabapentin is as needed. Not on any ROLL FORGER depressing agents.
-About to undergo EEG
-Mentation seems back to baseline.
# End-stage renal disease on peritoneal dialysis
#Anasarca 2/2 above
# Acute hypoxic respiratory insufficiency secondary to above
-Nephrology on consult
-Might need hemodialysis but defer to nephrology
-Calcitrol, calcium acetate
-Volume removal should help.
-Nephro on board.
# Diabetic foot blister wound
-does not look infectious
-afebrile
-ctm
-wound care consulted
# CHF exacerbation
-BNP 46362
-Chest x-ray with impression of Findings suspicious for mild congestive heart failure.
-Strict SOLIS
-Daily weight
-Fluid restriction.
-ECHO noted EF of 55 to 60%. Diastolic function indeterminant.
-nephrology consulted
# Anemia of chronic kidney disease
-Hemoglobin stable
-No active bleeding
-Continue to monitor
#Severe R PVD with claudication
#HX of vascular stenting (RLE x 2, LLE x 2)
-s/p angiopathy, right iliac artery,� balloon angioplasty and also status post OR on 06/13 for lysis� removal, SFA stent and external iliac stent
- continue ASA/Statin/cilostazol
-Gabapentin continued
-Coumadin prior to intubation, on 4 mg. INR 2.78 today
-daily PT/INR. INR 3.26
# RLE DVT
-On a/c warfarin for over 2 years
Essential HTN
- continue Norvasc
- continue bisoprolol dose increased to 10 mg twice daily
- Switch to p.o. hydralazine on discharge
IDDM
-sliding scale, lantus and pre-meal insulin. Basal 30 units and aspart 8 units before meals.
-CHO diet
#HLD
- statin/Zetia
#CAD s/p CABG
- continue ASA/Statin/BB
Depression - Discontinued Zoloft
DVT ppx: coumadin--> continue to hold this plan for cardiac cath and INR 5.25 on 11/20-->will recheck today and in am
Code: Full
Total Critical Care Time 35 minutes. I was immediately available to the patient and staff. I personally examined, reviewed labs, diagnostic images/reports, interpretations, treatment plans, discussed patient care with other providers and family
or caregivers (if patient is unable to make decisions), entered orders as appropriate and documented the medical record.
Anticipated Discharge: > 48 hours
Subjective/Interval History
-
Date of Service: November 21, 2023
Patient worsening respiratory status today, more short of breath, requiring more oxygenation. Tachypneic and tachycardic. Increased work of breathing. Paroxysmal atrial tachycardia. Denies chest pain.
Objective Data
-
Labs:
Laboratory Results
11/21/23
05:31
WBC 7.3
Hgb 10.2 L
Hct 30.2 L
Plt Count 183 D
Sodium 131 L
Potassium 4.5
Chloride 95 L
Carbon Dioxide 28
BUN 50 H
Creatinine 7.7 H*
Glucose 255 H
Calcium 8.2 L
Vital Signs:
Vital Signs
Temp Pulse Resp BP Pulse Ox
98.6 F 109 17 119/88 93
11/21/23 03:24 11/21/23 06:00 11/21/23 06:00 11/21/23 06:00 11/21/23 05:00
I&O
11/20/23 11/21/23 11/22/23
06:59 06:59 06:59
Intake Total 867.4 / 867.4
Output Total 1255 / 1255 1250 / 1250
Balance -387.6 / -387.6 -1250 / -1250
Review of Systems
-
All other systems: Reviewed and negative
[2023-11-21] MEDS: MIRALAX PO (07:54)
--- NOTE | 2023-11-21 08:02 | W.PN.CARDCBS ---
Today's Communication / Plan
-
Agitated this morning. Denies chest pains
EKG has improved QTc now 450 ms
Still having bursts of atrial tachycardia but no significant ventricular tachycardia. Increase metoprolol to 50 mg every 12
Will keep n.p.o. for possible catheterization in a.m. continue aspirin, atorvastatin, amlodipine, and metoprolol
Continue to wean oxygen
Continue volume removal with peritoneal dialysis
Impression / Plan
-
PCP: Dr. Susan Starkey
Cardiology: Unknown
Nephrology: [facility]
Vascular surgery: Dr. Sweeney
Impression:
In-hospital cardiac arrest 11/17/23
VT arrest
s/p shock x1 and Epi x1 11/17/23
Prolonged QT
Admitted with TME, uremia and anasarca 11/12/23
ESRD on PD
failing at home PD due to cognitive dysfunction
Elevated Troponin
CAD s/p CABG outside hospital 1995
Acute HFpEF
Anasarca
PAD
fem pop bypass 2015
right CEA at [place] 03/2019
left CEA at [place] 07/2019
right SFA ENVIRONMENTAL DIRECTOR 2020
Chronic warfarin OAC for PAD
DM 2
Echo 11/15/23: EF 55-60%, trace MR
Echo 11/17/23: LVEF 50% with mild LVH. No significant valve disease.
Plan:
-Patient came to [facility] on 11/12/23 with increasing SOB after he had trouble keeping up with his home PD treatments and he was admitted with acute HF and volume overload, cardiology is now consulted after a VT arrest today. Patient was admitted 11/12/23
with anasarca, SOB and failing PD at home. Patient lives in [place] and follows with a furniture arranger at [facility], but came to for care. Patient and also noted increasing somnolence and some confusion which overall seemed to be contributing to
trouble with maintaining PD treatments at home resulting in weight gain and SOB. Weight was up at least 10 lbs on admission. Patient was admitted and seen by nephrology at , PD was restarted in the hospital. Patient had an echo 11/15/23 that showed
a preserved EF. There is a h/o CABG at an outside hospital in 1995, primary rivet hole machine operator unknown and patient has never seen cardiology at before. Patient with hyperkalemia on admission that resolved with PD. QT was prolonged to 486 ms on ECG on
admission 11/12/23 in the setting of RBBB, then 522 ms 11/16/23, then 543 ms this afternoon at 1330. Patient with a run of VT and confusion noted by nursing around 1330 today and magnesium rider ordered. Last magnesium level was 1.6 on 11/16/23. Patient
then had sustained VT and cardiac arrest prompting code 9. Cardiology arrived with rest of the team. Patient undergoing CPR and received Epi x1 and shocked x1 with ROSC. Patient intubated by anesthesia team.
-He continues to slowly improve and continues with peritoneal dialysis. Potassium is normal. Continue to wean oxygen.
-QTc has improved and down to 450 no further episodes of VT on telemetry. The etiology of his VT remains unclear. Having intermittent episodes of atrial tachycardia. Increase metoprolol to 50 mg twice daily
-He has marked T wave abnormalities and likely will need a cardiac catheterization on Wednesday. will make npo
-His troponin remains in the indeterminate zone. However his abnormal troponin could be from CPR.
-He has a known history of coronary disease status post CABG in 1995. Continue aspirin, atorvastatin, and midodrine
-Weight continues to improve with peritoneal dialysis
Progress Note - Cut Plug Packer
Subjective
Date of Service: November 21, 2023
Denies chest pain. Breathing overall stable
Objective
Labs:
11/21/23 05:31
11/21/23 05:31
Labs
Hgb 10.2 g/dL (13.0-18.0) L 11/21/23 05:31
Hct 30.2 % (39.0-52.0) L 11/21/23 05:31
Plt Count 183 10^3/uL (130-400) D 11/21/23 05:31
PT 49.0 Sec (11.4-14.6) H 11/20/23 03:15
INR 5.25 H* 11/20/23 03:15
APTT 97.3 Sec (23.4-35.0) H 11/20/23 03:15
Sodium 131 mmol/L (135-145) L 11/21/23 05:31
Potassium 4.5 mmol/L (3.5-5.1) 11/21/23 05:31
BUN 50 mg/dl (9-20) H 11/21/23 05:31
Creatinine 7.7 mg/dL (0.7-1.3) H* 11/21/23 05:31
Glucose 255 mg/dl (70-99) H 11/21/23 05:31
Troponins
11/18/23 11/18/23 11/19/23
12:59 23:03 04:50
Troponin I 0.293 H* 0.188 H* 0.178 H*
Vital Signs and I&O:
Vital Signs
Temp Pulse Resp BP Pulse Ox
98.6 F 109 17 119/88 93
11/21/23 03:24 11/21/23 06:00 11/21/23 06:00 11/21/23 06:00 11/21/23 05:00
Vital Signs
Temp Pulse Resp BP Pulse Ox
98.6 F 109 17 119/88 93
11/21/23 03:24 11/21/23 06:00 11/21/23 06:00 11/21/23 06:00 11/21/23 05:00
Intake & Output
11/19/23 11/20/23 11/21/23 11/22/23
06:59 06:59 06:59 06:59
Intake Total 651.1 / 658.1 867.4 / 867.4
Output Total 1250 / 1250 1255 / 1255 1250 / 1250
Balance -598.9 / -591.9 -387.6 / -387.6 -1250 / -1250
Physical Exam
Physical Exam
GEN: No distress, awake, agitated
HEENT: supple, anicteric, mmm
LUNGS: scatt rhonchi
CV: Reg, S1/S2, 1/6 syst LSB, no gallop
ABD: soft, BS+, NT/ND
EXT: No edema
NEURO: Gross non-focal
SKIN: No rash
[2023-11-21 08:43] LABS: Glucose - Point of Care 297 mg/dl (70-99)
[2023-11-21] MEDS: NOVOLOG FLEXPEN-MODERATE RESISTANCE 5 UNITS SC (09:10)
[2023-11-21] MEDS: LANTUS 0.299999999999999989 UNITS SC (09:11)
[2023-11-21] MEDS: NOVOLOG FLEXPEN SC ×3 (09:11→17:27)
[2023-11-21] MEDS: LOPRESSOR 25 MG PO ×2 (09:12→19:39)
[2023-11-21] MEDS: LOW STRENGTH ASPIRIN 81 MG PO (09:12)
[2023-11-21] MEDS: PROTONIX IV 40 MG IV (09:12)
[2023-11-21] MEDS: MAGNESIUM OXIDE 500 MG PO ×2 (09:12→19:38)
[2023-11-21] MEDS: ZETIA 10 MG PO (09:12)
[2023-11-21] MEDS: NSS (PRESERVATIVE FREE) 10 ML IV (09:13)
--- NOTE | 2023-11-21 09:56 | W.PN.NEPH.PH ---
Today's Communication / Plan
-
Peritoneal dialysis orders written
more sob this am, rechecking CXR , if volume overloaded will increase PD 4.25%
Assessment/Plan
-
Assessment
-ESRD/PD
-volume overload
-CHF
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
-PAD
-HTN
-edema
-CAD/CABG
-DM2
-Hyponatremia
-In-hospital cardiac arrest 11/17/23
VT arrest
s/p shock x1 and Epi x1 11/17/23
Plan
-PD ordered, alternat 4.25% with 2.5% (weights down significantly), 2L q4h
-Possible cardiac catheterization in am
-there is a possibility that he will need to be converted to HD here depending on volume status, but so far stable
-Hemodynamically stable
-replete K as needed
-follow Mg
-hyponatremia aggravated by hyperglycemia this am
-more sob this am, for follow up CXR
-
-
Date of Service: November 21, 2023
CC / HPI / ROS
-
Chief Complaint:
ESRD
History of Present Illness:
PD 2.5% alternating with 4.25%
PD in progress
s/p code 9 with VT 11/17/23
on high flow O2
Review of Systems:
no fever
no CP
more sob today
Weights continue to significantly drop
Labs
-
Labs:
WBC 7.3 10^3/uL (4.8-10.8) 11/21/23 05:31
RBC 3.48 10^6/uL (4.70-6.10) L 11/21/23 05:31
Hgb 10.2 g/dL (13.0-18.0) L 11/21/23 05:31
Hct 30.2 % (39.0-52.0) L 11/21/23 05:31
Plt Count 183 10^3/uL (130-400) D 11/21/23 05:31
Sodium 131 mmol/L (135-145) L 11/21/23 05:31
Potassium 4.5 mmol/L (3.5-5.1) 11/21/23 05:31
Chloride 95 mmol/L (98-107) L 11/21/23 05:31
Carbon Dioxide 28 mmol/L (22-30) 11/21/23 05:31
BUN 50 mg/dl (9-20) H 11/21/23 05:31
Creatinine 7.7 mg/dL (0.7-1.3) H* 11/21/23 05:31
eGFR 7.26 11/21/23 05:31
Glucose 255 mg/dl (70-99) H 11/21/23 05:31
Calcium 8.2 mg/dl (8.4-10.2) L 11/21/23 05:31
Zkd-U-Ivaemvlmskr Pept > 47317 pg/ml 11/17/23 14:15
Albumin 2.7 g/dl (3.5-5.0) L 11/12/23 13:11
Physical Exam
-
Vital Signs:
Vital Signs
Temp Pulse Resp BP Pulse Ox
96.7 F L 123 20 110/89 94
11/21/23 07:55 11/21/23 09:12 11/21/23 08:43 11/21/23 09:12 11/21/23 08:04
Cardiovascular:: Regular rate and rhythm
Respiratory:: Bilateral: Coarse
Lung Excursion:: Normal
Abdomen:: Nontender and Soft
Bowel Sounds:: Normal
Extremity Edema:: None: Bilateral:
--- NOTE | 2023-11-21 10:06 | W.PN.UPDATE ---
Update Note
Progress Note Update
PD note:
Alternating 4.25% with 2.5% dialysis at 2 L exchange volumes at every 4 hour intervals
Continues to be net negative via UF
Weight is down 10 kg since admission
[2023-11-21 10:28] LABS: B.E. 4.9 mmol/L; HCO3 27.6 mmol/L (21-28); O2 Saturation % 92.5 % (94-98); PCO2 33 mmHg (35-48); pH 7.53 (7.35-7.45)
[2023-11-21 10:31] LABS: PO2 59 mmHg (83-108)
[2023-11-21] MEDS: XANAX 0.25 MG PO (10:49)
--- NOTE | 2023-11-21 10:56 | PTCARENOTE ---
Pt rec'd from aerospace products sales engineer RN, continues with intermittent tachypnea, FLORIAN, sats labile, confused at times, epistaxis noted to right nare, does not appear to be actively bleeding at this time. Full bath, oral care completed. This RN discussed plan of
care with MDs, attending Dr. Yanez reconsulted pulm, orders rec'd for CXR, ABG, Xanax....P02 result critical at 59, MDs notified. Dr. Granados will place order for bipap, resp therapist at bedside. First session of PD was completed at 09:45-see
flowsheet for details. Pt is for cardiac cath tomorrow, orders noted for NPO after MN, am labs.
Bipap placed at 14/8 with 15L at this time by RT Wild.
[2023-11-21 11:52] LABS: Glucose - Point of Care 345 mg/dl (70-99)
[2023-11-21] MEDS: NOVOLOG FLEXPEN-MODERATE RESISTANCE 7 UNITS SC (12:44)
--- NOTE | 2023-11-21 12:47 | PTCARENOTE ---
Pt's right eye tearing, wiped with tissue and noted to be pink/blood tinged, Dr. Yanez notified.
Pt continues with tachypnea on bipap-sats low 90s. RT updated.
--- NOTE | 2023-11-21 14:22 | W.PN.PUL3 ---
Today's Communication / Plan
-
BPAP/O2
Repeat blood cxs, COVID/flu
RSV
Resume atbs: cefepime
Assessment
-
Assessment:
Mr Blair Thakkar is a 63/M adm 11-12 with confusion and EV edema. Known h/o CKD on PD, recently not able to do PD himself due to confusion, did. At ER, confused, hypoxemic. Seen by Neurology, no acute findings on CT and MRI brain. Seen by
Renal, resumed PD soon after adm. VTach episode on night 11-16, received IV Mag with resolution. VTach returned on early afternoon 11-17, started Mag IV infusion, MS continued deteriorating, became unresponsive, VTach deteriorated to TDP, then
VFib, shock at 360K x1, developed PEA, received 3 doses epinephrine, total CPR time about 3 min with ROSC, intubated by anesthesia with no reported difficulty
Impression:
Cardiac arrest 11-17-23
VTach, TDP, VFib, PEA
Low normal serum Mg on 11-16 and given IV Mag on 11-16 and also 11-17 (Mg was running at time of arrest)
Conditions WHITE KID BUFFER:
CKD on PD
CAD s/p CABG
PVD s/p bilateral EV stenting
Emergent stenting RLE Jun 2021 ()
DM
HTN
HLD
Depression
Obesity
Plan:
Seen at U 11-21 for increasing O2 requirement: O2 mask 100%, POx low 90s
ABG on above 7.53/33/59
Dyspneic, no cough, no wheezing
CXR with mild pulm vasc congestion, no obvious pulm infiltrate
Started on BPAP 21/06 with O2 15 L, POx 95%, more comfortable
Will continue BPAP, updated microbiology testing, start empiric atbs
Observe off systemic CS
TT d/w renal and cards 11-21: no indication to modify PD now, for R/LHC tomorrow
Previously:
VTach evening 11-16
Low normal Mag, replaced IV at time of event
No gross e-lyte abnormalities at time of VTach, TDP, VFib/PEA
Cardiac arrest 11-17
Intubated with no reported difficulty
CPR, 3 epi doses, shock x1 at 360. CPR for about 3 min till ROSC
Moving EV weakly, swallowing activity noted after arrest
No candidate for hypothermia
MS monitored, was able to open eyes and follow simple commands
MV with good performance on SBT 11-18
Appropriate weaning, extubated with no issue 11-18
Empiric atbs started by adm svce 11-17: vanco/zosyn
MRSA negative, d/c vanco 11-18
Zosyn: d/c'ed 11-19
Blood cxs so far negative
Trach secs cx negative
NE off since 11-18
Glycemic control: IV insulin gtt initially, now transitioned to lantus and AC novolog 11-19
ADA 1800 luh diet
Cards saw patient at time of arrest and continues to follow
Initially deemed poor candidate for revascularization
[facility] planned for 11-22
On chronic PD
Renal suspected PD no longer viable ad terminal makeup operator, rec to evaluate for HD as outpatient, now considering as inpatient, will need HD cath (ideally trilumen cath by IRad)
On chronic coumadin for h/o PVD s/p stents
Held since 11-17, follow INR which remains elevated
Remain at IMU for now
Diagnostic tests:
CXR 11-17- pm: interim intubation and GT. pulm vasc and parenchymal congestion.
CXR 11-12 and 08-31 AM, portable, improved pulm vasc and parenchymal congestion, sternotomy
TTE 11-17-23 (post cardiac arrest)
CONCLUSIONS
Limited study
Normal left ventricular chamber size. Mild concentric left ventricular
hypertrophy. Normal left ventricular systolic function. Left ventricular
ejection fraction is 50% by Grimaldo' s method. Diastology not assessed.
Since echocardiogram November 15, 2023 which was reviewed, there is no
significant change.
TTE 11-15-23
CONCLUSIONS
Normal left ventricular chamber size. Normal left ventricular systolic
function. Normal regional wall motion. Mild concentric left ventricular
hypertrophy. Left ventricular ejection fraction is 55-60% by visual estimate.
Diastolic function indeterminate due to atrial fibrillation.
Mildly thickened mitral valve leaflets. Mitral annular calcification. Mitral
valve opens normally. Trace mitral regurgitation.
Subjective Data
-
Date of Service:
Date of Service: November 21, 2023
Chief Complaint: Pulmonary Follow Up
Subjective:
Continues on high O2 requirement, dyspneic
Continue PD
Denies cough
Review of Systems
General: Fever (n), Sweats (n), Chills and Satisfactory Appetite
HEENT: Epistaxis (n)
Cardiopulmonary: Dyspnea, Cough (n), Wheezing (n) and Chest Pain (n)
GI: Abdominal Pain (n), Nausea (n) and Vomiting (n)
Neuro: Weakness
Objective Data
Data Reviewed
Vital Signs / I&O / Oxygen:
Vital Signs
Temp Pulse Resp BP Pulse Ox
97.1 F 78 25 138/72 94
11/21/23 11:55 11/21/23 11:00 11/21/23 11:00 11/21/23 10:42 11/21/23 11:03
Intake and Output
11/20/23 11/21/23 11/22/23
06:59 06:59 06:59
Intake Total 867.4 / 867.4
Output Total 1255 / 1255 1250 / 1250 100 / 100
Balance -387.6 / -387.6 -1250 / -1250 -100 / -100
SaO2 [CPAP/PSV] 95
SaO2 [A/C] 96
SaO2 94
Nasal Cannula flow liters per 15
minute
Physical Exam
General: Respiratory Distress
HEENT: Normocephalic and Moist Mucous Membranes
Cardiovascular: Regular Rhythm and Peripheral Edema (mild EV)
Respiratory: Wheeze (n), Crackles, Accessory Resp Muscle Use and Stridor (n)
GI: Soft, Non Distended and Non Tender
Neurology: Awake, Oriented and No Motor Deficits
Skin: Dry
Labs/Micro/Reports
Lab Data
11/21/23 05:31
11/21/23 05:31
Laboratory Results
11/21/23
10:20
pH 7.53 H
pCO2 33 L
pO2 59 L*
HCO3 27.6
O2 Delivery Level
Microbiology
11/17/23 13:16 Blood/Venous Blood Culture - Preliminary
No Growth in 4 days- Final report to follow
11/18/23 11:50 Blood/Venous Blood Culture - Preliminary
No Growth in 72 hours- Final report to follow
11/18/23 09:27 Tracheal Aspirate Respiratory Culture - Final
Usual Respiratory Amelie
11/18/23 09:27 Tracheal Aspirate Gram Stain - Final
[2023-11-21 15:10] LABS: INR 1.14; PT 14.9 Sec (11.4-14.6)
[2023-11-21 16:02] LABS: COVID-19 Antigen Negative (Negative)
[2023-11-21 16:20] LABS: NT-proBNP > 27000 pg/ml
[2023-11-21 16:56] LABS: Glucose - Point of Care 221 mg/dl (70-99)
[2023-11-21] MEDS: STERILE WATER FOR INJECTION 10 ML IV (17:20)
[2023-11-21] MEDS: MAXIPIME 1000 MG IV (17:20)
[2023-11-21] MEDS: NOVOLOG FLEXPEN-MODERATE RESISTANCE 3 UNITS SC (17:23)
--- NOTE | 2023-11-21 17:40 | PTCARENOTE ---
Lengthy discussions with [facility] members of care team today re: pt's code status and plan of care, pt stated he does NOT want to be 'revived' or to be intubated if necessary, however at bedside is reluctant to agree, feels that patient is not
thinking clearly and that he is depressed, she wants to keep pt full code at this time. Emotional support provided. Dr. Yanez discussed with both patient and .
Pt continues on bipap, picking at equipment requiring frequent reorientation. Pt is AOx1, forgetful. Labs as documented, orders rec'd-will place midline as pt extrm difficult stick, will need heparin gtt per orders. Pt for right and left heart cath
tomorrow. NPO after midnight. Will pass onto oncoming shift.
[2023-11-21 19:00] LABS: Hematocrit 29.4 % (39.0-52.0); Hemoglobin 9.9 g/dL (13.0-18.0); Mean Corp Hgb Conc. 33.7 g/dL (33.0-37.0); Mean Corpuscular Hgb 29.3 pg (27.0-31.0); Mean Platelet Volume 12.1 fL (7.4-10.4); Platelet Count 188 10^3/uL (130-400); Red Blood Cell Count 3.38 10^6/uL (4.70-6.10); Red Cell Dist. Width 15.6 % (11.5-14.5); White Blood Cell Count 6.5 10^3/uL (4.8-10.8)
[2023-11-21 19:09] LABS: APTT 40.4 Sec (23.4-35.0)
--- NOTE | 2023-11-21 19:19 | PTCARENOTE ---
Midline placed by VAT team, labs sent. results pending at this time. Report given to lab specialist RN.
[2023-11-21] MEDS: HEPARIN 4000 UNITS IV (19:38)
[2023-11-21] MEDS: LIPITOR 40 MG PO (19:40)
[2023-11-21] MEDS: HEPARIN 25000 UNITS/250 ML IV (19:42)
--- NOTE | 2023-11-21 20:45 | PTCARENOTE ---
assumed care of patient, IV heparin gtt hung per order- PTT entered q6 hours. pt maxed on bipap at beginning of shift, lethargic and tachypneic RR 30-40s. pulse ox 91-92%. BP stable. notified covering LAUNCH LEADER of patient status. ABG's drawn, portable
chest x-ray ordered. PD done per order. pt given ICU orders- report given to RN. pt transferred to [facility].
--- NOTE | 2023-11-21 20:52 | W.PN.UPDATE ---
Update Note
Progress Note Update
Notified by floor nurse that patient has had increasing oxygen needs throughout day. Currently patient is maxed on BiPap 14/8 with 15 Liters with a respiratory rate ranging 30s - 40s. Earlier ABG patient with respiratory alkalosis (PO2 59). At
bedside patient is responsive with confusion and is lethargic. Currently controlled afib on monitor. Tachypneic, BiPAP in place, no cough, crackles heard in right middle and lower lobes, diminished throughout.
Plan:
- STAT ABG, worsening respiratory/metabolic alkalosis
- STAT Chest x-ray, 'Suspect residual mild pulmonary edema, improved. Differential includes improving infectious/inflammatory pneumonitis.'
- Reviewed with collection teller, Dr. Bazzi, transfer order placed to send to ICU for closer monitoring, NIV vs. reintubation
[2023-11-21 21:48] LABS: B.E. 7.7 mmol/L; HCO3 30.9 mmol/L (21-28); PCO2 37 mmHg (35-48); pH 7.53 (7.35-7.45)
[2023-11-21 21:52] LABS: PO2 56 mmHg (83-108)
[2023-11-21 23:00] LABS: Glucose - Point of Care 197 mg/dl (70-99)
[2023-11-22] VITALS (30 sets, daily range): BP systolic 70–176; BP diastolic 18–139; BMI 28.9
--- NOTE | 2023-11-22 | SUR.PHASEI ---
Pt was transfer to ICU. AAOX1 to 2, forgetful, confused, anxious and restless at times. NSR to ST w/ PVC's. Traces of anasarca. Pt continues to get PD. Lung sounds are diminished to crackle a the bases. SaO2 94% on BiPAP. Pt was place on non
invasive ventilator 14/, 60% Shallow , tachypneic and dyspneic w/ exertion. Abd round, obese and distended. oliguric. Pt is on Heparin gtt at 10 ml/hr. Will continue w/ tx. Bed alarm in place.
[2023-11-22] MEDS: PRECEDEX 100 IV (00:27)
--- NOTE | 2023-11-22 00:47 | PTCARENOTE ---
P is severely anxious and restless, pull BIPAP mask off and attempted to pull IV access. AAOx1. He remains on non invasive vent. HEALTH SCREENER notify about behavior and Precedex order. Rass +1. Will cont w/ treatment
[2023-11-22] MEDS: TYLENOL PO ×6 (01:09→21:27)
[2023-11-22 02:04] LABS: APTT 150.5 Sec (23.4-35.0)
[2023-11-22] MEDS: ProAmatine 5 MG PO ×2 (02:07→07:30)
--- NOTE | 2023-11-22 04:46 | PTCARENOTE ---
Addendum entered by Venkatesh Henning RN 11/22/23 06:15:
Precedex stop. Pt had 17 beats of vtach. VOLUNTEER SERVICES DIRECTOR made aware.
Original Note:
Pt has become anxious and pulling all item. Precedex increased to 0.6 mcg. SBP 110's MAP >65. EKG done. Will cont tx. and wean off precedex.
[2023-11-22] MEDS: NOVOLOG FLEXPEN 8 UNITS SC ×2 (05:10→15:49)
[2023-11-22] MEDS: NOVOLOG FLEXPEN-MODERATE RESISTANCE 5 UNITS SC (05:11)
[2023-11-22 05:21] LABS: Glucose - Point of Care 259 mg/dl (70-99)
[2023-11-22 05:34] LABS: B.E. 7.1 mmol/L; HCO3 31.3 mmol/L (21-28); O2 Saturation % 97.8 % (94-98); PCO2 42 mmHg (35-48); PO2 85 mmHg (83-108); pH 7.48 (7.35-7.45)
[2023-11-22 05:35] LABS: % Basophils 0.2 % (0-2); % Eosinophils 2.4 % (0-6); % Immature Granulocytes 0.9 % (0-0.5); % Lymphocytes 7.8 % (20.5-51.1); % Monocytes 5.6 % (1.7-9.3); % Neutrophils 83.1 % (42.2-75.2); Absolute Eosinophils 0.1 10^3/uL (0-0.7); Absolute Immature Granulocytes 0.1 10^3/uL (0-0.05); Absolute Lymphocytes 0.5 10^3/uL (1.2-3.4); Absolute Monocytes 0.3 10^3/uL (0.1-0.6); Absolute Neutrophils 4.8 10^3/uL (1.4-6.5); Hematocrit 27.9 % (39.0-52.0); Hemoglobin 9.3 g/dL (13.0-18.0); Mean Corp Hgb Conc. 33.3 g/dL (33.0-37.0); Mean Corpuscular Hgb 29.2 pg (27.0-31.0); Mean Corpuscular Volume 87.7 fL (80.0-94.0); Mean Platelet Volume 11.6 fL (7.4-10.4); Nucleated Red Blood Cells % 0 % (-); Platelet Count 167 10^3/uL (130-400); Red Blood Cell Count 3.18 10^6/uL (4.70-6.10); Red Cell Dist. Width 15.5 % (11.5-14.5); White Blood Cell Count 5.8 10^3/uL (4.8-10.8)
[2023-11-22 05:37] LABS: O2 Therapy NIV
[2023-11-22 05:46] LABS: INR 1.17; PT 15.2 Sec (11.4-14.6)
[2023-11-22 06:06] LABS: Blood Urea Nitrogen 56 mg/dl (9-20); Calcium 8.2 mg/dl (8.4-10.2); Carbon Dioxide 32 mmol/L (22-30); Chloride 92 mmol/L (98-107); Estimated Creatinine Clearance 10 ml/min; Glucose 229 mg/dl (70-99); Magnesium 2.5 mg/dl (1.6-2.3); Potassium 3.7 mmol/L (3.5-5.1); Sodium 134 mmol/L (135-145); eGFR 7.49
[2023-11-22] MEDS: NSS (PRESERVATIVE FREE) 10 ML IV (07:48)
[2023-11-22] MEDS: PROTONIX IV 40 MG IV (07:48)
--- NOTE | 2023-11-22 07:58 | PN.DE.MGMTRT ---
Insulin Management
- -
11/18/2023 Diabetes Management Follow up
Admitted 11/12 for R foot wound, confusion, SOB, swelling. PMH renal failure with peritoneal dialysis, HTN, PVD type 2 diabetes. Prior to admission chart reflects he was taking 60 units Basaglar daily with NovoLog 28 units BID. A1C 8.6%. Patient
had cardiac arrest 11/16 now intubated on mechanical ventilation and insulin infusion. Prior to this patient was receiving Lantus in AM with AC NovoLog at reduced doses.
Will continue glycemic protocol at this time. If patient is weaned off of ventilator will assess for readiness to transition to subcutaneous insulin.
11/19/2023: Diabetes Management F/U:
Pt extubated last evening. Doing well, sitting up in bed, offers no complaints.
Glucose trended up to 197, remains on glycemic protocol requiring 0.8-7 units of insulin/ hr while NPO.
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
Will transition off drip. Give Lantus 30 units NOW, turn drip off 1 hr after.
Start AC NovoLog 8 units and moderate corrective insulin with meals. Start 1800 ADA diet. Accucheks AC/HS
Will follow for further needed insulin adjustments. Plan of care d/w pt and Nurse.
11/22/2023: Diabetes Management F/U:
Pt transferred back to ICU for increased O2 requirements.
Currently NPO for R/LHC today. Premeal glucose trended up to 345 requiring 3-7 units of corrective insulin.
Will make no changes to regimen at this time, reassess after procedure and make necessary adjustments to insulin dose
Diabetes History
- -
Type of Diabetes: 2 requiring insulin
Pre-Admission Diabetes Regimen
11/22/23
04:43
Creatinine 7.5 H*
Lab Results
Hemoglobin A1c 8.6 % (4.0-5.6) H 11/13/23 06:09
Insulin Pump Settings
IP Diabetes Regimen
11/21/23 11/21/23 11/21/23
08:31 11:41 16:45
Glucose
POC Glucose 297 H 345 H 221 H
11/21/23 11/22/23 11/22/23
22:49 04:43 05:10
Glucose 229 H
POC Glucose 197 H 259 H
Meal type: Lunch
Meal type: Breakfast
Amount consumed: 0
Amount consumed: 0
Patient Education
--- NOTE | 2023-11-22 08:00 | PTCARENOTE ---
report received from previous RN. Pt drowsy, arouses easily to voice. slightly disoriented to time, unable to state month. oriented to person and place. generalized weakness noted throughout. NIV 60%, 14/5, tv 500. sat 95%. lung sounds diminished
throughout. intermittent nonproductive cough. SR with pacs on telemetry heart rate 60s. pulses weakly palpable. trace lower extremity edema. active bowel sounds, npo for possible cath today. anuric/oliguric. Peritoneal dialysis every 4 hours,
tolerating well. See worklist for full nursing assessment and interventions.
--- NOTE | 2023-11-22 08:09 | W.PN.HOSP.TC ---
Today's Communication/Plan
-
Heparin drip. Beta-blockers. Plan for cardiac catheterization right and left.
Assessment / Plan
Assessment / Plan
Physical exam:
General: Acutely ill.
HEENT: Normocephalic, Atraumatic and Moist Mucous Membranes
Respiratory: Currently on BiPAP. Increased work of breathing. Bilateral Crackles in the bases. No wheezes. No rhonchi
Cardiac: Regular Rhythm and tachycardic, and S1/S2
GI: Soft, Nontender and Nondistended
Musculoskeletal: No Clubbing, No Cyanosis. Presence of edema
Neuro: Alert oriented, generalized weakness
Psych: Calm.
A/P:
# Acute hypoxic respiratory failure, worsening today on 11/21
-Continue BiPAP 14 over 60% FiO2 and pulse ox 90-98%--> wean BiPAP to oxygen as able
-Discussed with pulmonary this morning
-Monitor respiratory status closely
-Patient at very high risk of respiratory deterioration or compromise
-Beta-blockers increased today due to episodes of atrial tachycardia (no ventricular arrhythmias).
-He has been started on midodrine for blood pressure support as well.
-On IV cefepime covering possible pneumonia
-Peritoneal dialysis per nephrology
-Keep heparin drip for ACS protocol
-Keep K>4 (with some leniency due to ESRD) and Mg>2 (mg 2.5 today)
-Plan for cardiac cath today, left and right
#Cardiorespiratory arrest
-ROSC on 11/17
-Cardiology planning cardiac catheterization on Wednesday-absolutely agree with ischemic workup as planned by cardiology.
-On aspirin, beta-blockers increased metoprolol 25 mg twice a day, on statin atorvastatin 40 mg p.o. nightly. On heparin gtt
-Continue oxygen supplementation and wean as able
-Peritoneal dialysis per nephrology
-Latest EKG if QTc is 450 which is an improvement from prior EKGs(>500's).
Prior to today:
-Code called. V. tach-->TDP-->V Fib-->PEA. CPR abt 3 min and Epinephrine x3. V Fib s/p shock 360J x1--> ROSC achieved.
-IV magnesium ordered earlier but not given yet and was given during the code.
-Twelve-lead EKG with prolonged QTc
-I participated in the code along with the rest of the team.
-Discussed with cardiology team at bedside
-Updated over the phone--> understanding of critical situation, and will also like to continue full medical efforts at this point in time.
-Reconciliation Machine Operator consulted
-Avoid QTc prolonging medications at all cost.
-Might need cardiac catheterization but will defer to cardiology
-Transthoracic echocardiogram--> EF 50%, mild concentric left ventricular hypertrophy, no significant changes from prior echo.
#Chest pain
-Today chest pain on 11/20 appears atypical probably related to CPR. Nonetheless, given history of CAD and unknown current CAD status, will add nitro as needed.
-Also obtained twelve-lead EKG and pretty much unremarkable from prior EKGs. Did not obtain cardiac enzymes given his end-stage renal disease and plan for cardiac cath on Wednesday.
-Tylenol as needed.
-On aspirin, beta-blockers increased metoprolol 25 mg twice a day, on statin atorvastatin 40 mg p.o. nightly.
-Continue to monitor
#Acute hypoxic respiratory failure from prior
-Patient extubated yesterday on 11/18
-Continue supplemental oxygen
Prior to today:
-In the morning he was on 6 L of oxygen
-Obtained chest x-ray today on 11/17
-Start empirically on IV Zosyn and vancomycin obtain blood cultures prior.
-Patient deteriorated and went into cardiac arrest and now on mechanical ventilation
-Intubated by anesthesia during code.
-Pulmonary research clerk consulted
-Nephrology feels peritoneal dialysis enough at this point.
# Ruled out sepsis/septic shock
-Antibiotics discontinued
-Off pressors
#Hypokalemia
Replete and trend
#Hypomagnesemia
-Magnesium 2.5 today
-On magnesium oxide 500 mg twice a day
-Will continue to monitor in light of recent cardiorespiratory event
# Toxic metabolic encephalopathy
-Multifactorial in nature with uremia concerns and now possible sepsis contributing and hypoxia at this point
-Head CT with impression of no acute intracranial abnormality noted.Increased soft tissue attenuation in the 0deep subcutaneous tissues adjacent to the outer table of the posterior midline/left paramidline parietal region, raising the possibility of
posttraumatic soft tissue swelling/contusion. Clinical correlation recommended.
-UA negative. Blood cultures in lab negative so far. Afebrile.
-continue to monitor mentation
-MRI brain negative for acute stroke or pathology.
-Ativan has been held. Gabapentin is as needed. Not on any SPACE CONTROL SUPERVISOR depressing agents.
-About to undergo EEG
-Mentation seems back to baseline.
# End-stage renal disease on peritoneal dialysis
#Anasarca 2/2 above
# Acute hypoxic respiratory insufficiency secondary to above
-Nephrology on consult
-Might need hemodialysis but defer to nephrology
-Calcitrol, calcium acetate
-Volume removal should help.
-Nephro on board.
# Diabetic foot blister wound
-does not look infectious
-afebrile
-ctm
-wound care consulted
# CHF exacerbation
-BNP 39699
-Chest x-ray with impression of Findings suspicious for mild congestive heart failure.
-Strict SOLIS
-Daily weight
-Fluid restriction.
-ECHO noted EF of 55 to 60%. Diastolic function indeterminant.
-nephrology consulted
# Anemia of chronic kidney disease
-Hemoglobin stable
-No active bleeding
-Continue to monitor
#Severe R PVD with claudication
#HX of vascular stenting (RLE x 2, LLE x 2)
-s/p angiopathy, right iliac artery,� balloon angioplasty and also status post OR on 06/13 for lysis� removal, SFA stent and external iliac stent
- continue ASA/Statin/cilostazol
-Gabapentin continued
-Coumadin prior to intubation, on 4 mg. INR 2.78 today
-daily PT/INR. INR latest 1.17
# RLE DVT
-On a/c warfarin for over 2 years. Currently on heparin drip
Essential HTN
- continue Norvasc
- continue bisoprolol dose increased to 10 mg twice daily
- Switch to p.o. hydralazine on discharge
IDDM
-sliding scale, lantus and pre-meal insulin. Basal 30 units and aspart 8 units before meals.
-CHO diet
#HLD
- statin/Zetia
#CAD s/p CABG
- continue ASA/Statin/BB
Depression - Discontinued Zoloft
DVT ppx: coumadin--> continue to hold this plan for cardiac cath and INR-->1.17
Code: Full (discussed with patient and about CODE STATUS and he wants to remain full code)
Total time spent on today's encounter was 52 minutes which included time spent in counseling the patient/family regarding diagnosis and treatment plan as listed above, goals of care, and symptom management. Case was discussed with nursing staff,
specialists, and care coordinators/case management. All labs and imaging personally reviewed by me. Remainder the time spent in detailed review of previous records, lab data, imaging, and other medical provider documentation.
Anticipated Discharge: > 48 hours
Subjective/Interval History
-
Date of Service: November 22, 2023
Patient transferred overnight to ICU due to respiratory status. Patient remains on BiPAP. Denies chest pain this morning. He is short of breath but not worse on BiPAP at the moment of my evaluation.
Objective Data
-
Labs:
Laboratory Results
01/14/24 01/15/24 01/15/24
21:41 01:40 04:43
WBC 5.8
Hgb 9.3 L
Hct 27.9 L
Plt Count 167
PT 15.2 H
INR 1.17
APTT 150.5 H*
HCO3 30.9 H
Sodium 134 L
Potassium 3.7
Chloride 92 L
Carbon Dioxide 32 H
BUN 56 H
Creatinine 7.5 H*
Glucose 229 H
Calcium 8.2 L
11/22/23 11/22/23 11/22/23
05:19 08:15 09:15
WBC
Hgb
Hct
Plt Count
PT
INR
APTT Cancelled Pending
HCO3 31.3 H
Sodium
Potassium
Chloride
Carbon Dioxide
BUN
Creatinine
Glucose
Calcium
Vital Signs:
Vital Signs
Temp Pulse Resp BP Pulse Ox
97.7 F 68 34 108/80 100
11/22/23 07:40 11/22/23 07:30 11/22/23 06:00 11/22/23 07:30 11/22/23 06:00
I&O
11/21/23 11/22/23 11/23/23
06:59 06:59 06:59
Intake Total 230.9 / 230.9
Output Total 1250 / 1250 750 / 750
Balance -1250 / -1250 -519.1 / -519.1
[2023-11-22] MEDS: MIRALAX PO (08:51)
[2023-11-22] MEDS: ZETIA 10 MG PO (08:55)
[2023-11-22] MEDS: LOPRESSOR 25 MG PO ×2 (08:55→19:34)
[2023-11-22] MEDS: LOW STRENGTH ASPIRIN 81 MG PO (08:55)
[2023-11-22] MEDS: MAGNESIUM OXIDE 500 MG PO ×2 (08:55→19:34)
[2023-11-22 09:00] LABS: Phosphorus 3.4 mg/dl (2.5-4.5)
[2023-11-22] MEDS: LANTUS 0.299999999999999989 UNITS SC (09:17)
[2023-11-22 09:25] LABS: Glucose - Point of Care 139 mg/dl (70-99)
[2023-11-22 09:47] LABS: APTT 112.9 Sec (23.4-35.0)
--- NOTE | 2023-11-22 09:56 | PTCARENOTE ---
transitioned from NIV to 100%, 60L high flow by resp therapist. sat 96%.
[2023-11-22] MEDS: NOVOLOG FLEXPEN SC (11:47)
[2023-11-22] MEDS: NOVOLOG FLEXPEN-MODERATE RESISTANCE SC ×2 (11:47→23:11)
--- NOTE | 2023-11-22 11:49 | W.PN.INTV ---
Today's Communication / Plan
Recommendations
Stop antibiotics and observe
Continue peritoneal dialysis
Discontinue noninvasive mechanical ventilation now, may use at night and as needed
Speech evaluation
Continue to monitor electrolytes/telemetry
Wean off oxygen, currently on high flow.
Assessment
-
Assessment:
Mr Blair Thakkar is a 63/M adm 11-12 with confusion and EV edema. Known h/o CKD on PD, recently not able to do PD himself due to confusion, did. At ER, confused, hypoxemic. Seen by Neurology, no acute findings on CT and MRI brain. Seen by
Renal, resumed PD soon after adm. VTach episode on night 11-16, received IV Mag with resolution. VTach returned on early afternoon 11-17, started Mag IV infusion, MS continued deteriorating, became unresponsive, VTach deteriorated to TDP, then
VFib, shock at 360K x1, developed PEA, received 3 doses epinephrine, total CPR time about 3 min with ROSC, intubated by anesthesia with no reported difficulty
Impression:
Cardiac arrest 11-17-23
VTach, TDP, VFib, PEA
Low normal serum Mg on 11-16 and given IV Mag on 11-16 and also 11-17 (Mg was running at time of arrest)
Conditions LICENSED APPRAISER:
CKD on PD
CAD s/p CABG
PVD s/p bilateral EV stenting
Emergent stenting RLE Jun 2021 ()
DM
HTN
HLD
Depression
Obesity
Plan:
Overnight 11/21/2023: Transferred back to the ICU with increased work of breathing necessitating noninvasive mechanical ventilation.
Chest x-ray at that time with mild pulmonary edema bilaterally.
Patient was not bronchospastic per reports
ABG with respiratory alkalosis.
He has been afebrile without leukocytosis.
-
Recent for decompensation perhaps multifactorial including volume overload, cannot rule out aspiration.
At this point no evidence for infection.
Discontinue antibiotics and observe.
Hold noninvasive mechanical ventilation for now: May use at night. Patient does not like noninvasive mechanical ventilation.
Will transition to high flow oxygen and wean down as able maintaining pulse ox above 90%.
-
He is more comfortable, cooperative.Able to speak in full sentences.
Does not appear on the stress
Denies any phlegm production.
I will obtain a speech and swallow evaluation. If cleared will advance diet.

VTach evening 11-16
Low normal Mag, replaced IV at time of event
No gross e-lyte abnormalities at time of VTach, TDP, VFib/PEA
Cardiac arrest 11-17
Require intubation-CPR, 3 epi doses, shock x1 at 360. CPR for about 3 min till ROSC
Extubated 11/18/2023.
Currently mental status back to baseline
No motor deficit.
Continue to monitor electrolytes
Continue benefits sales consultant.
Cardiology correspondence reviewed. Case discussed this morning.
Plan is for left and a right heart catheterization at some point . Defer timing to cardiology.
Continue to attempt negative fluid balance via peritoneal dialysis.
-
Antibiotics discontinued 11/19/2023. No evidence for infection.
Restarted on cefepime 11/21/2023: in reviewing x-rays no acute infiltrates. No evidence for infection. Discontinue and observe.
Blood cxs so far negative
Resp secs cx negative
NE off since 11-18
-
Glycemic control: Continue lantus and AC novolog 11-19
ADA 1800 luh diet
-
On chronic PD
Renal suspected PD no longer viable halfway, rec to evaluate for HD as outpatient, now considering as inpatient , depending o on volume status and cardiac catheterization.
-
On chronic coumadin for h/o PVD s/p stents
Heparin drip.
Follow PTT
-
Critical care statement: A total of 38 minutes of critical care time was provided for this patient today. This includes management of unstable vital signs, evaluation of the patient at bedside, reviewing the patient's pertinent medical records
including ventilator settings, arterial blood gases, radiographs, microbiology, laboratory evaluations and discussion with primary team, critical care nursing, and respiratory therapy.

Diagnostic tests:
CXR 11-17-23 pm: interim intubation and GT. pulm vasc and parenchymal congestion.
CXR - and 08-31 AM, portable, improved pulm vasc and parenchymal congestion, sternotomy
TTE 11-17-23 (post cardiac arrest)
CONCLUSIONS
Limited study
Normal left ventricular chamber size. Mild concentric left ventricular
hypertrophy. Normal left ventricular systolic function. Left ventricular
ejection fraction is 50% by Grimaldo' s method. Diastology not assessed.
Since echocardiogram November 15, 2023 which was reviewed, there is no
significant change.
TTE 11-15-23
CONCLUSIONS
Normal left ventricular chamber size. Normal left ventricular systolic
function. Normal regional wall motion. Mild concentric left ventricular
hypertrophy. Left ventricular ejection fraction is 55-60% by visual estimate.
Diastolic function indeterminate due to atrial fibrillation.
Mildly thickened mitral valve leaflets. Mitral annular calcification. Mitral
valve opens normally. Trace mitral regurgitation.
Subjective Dataa
Subjective Data
Date of Service:
Date of Service: November 22, 2023
Chief Complaint: Watch Dial Maker Follow Up (Acute hypoxemic respiratory failure requiring noninvasive mechanical ventilation.)
Subjective:
He offers no new complaints.
During my exam he was on noninvasive mechanical ventilation. Occasionally following commands PERRL
No significant phlegm production or hemoptysis.
Review of Systems
General: Fever
Cardiopulmonary: Dyspnea, Cough (n) and Chest Pain (n)
GI: Abdominal Pain (n) and Nausea (n)
Objective Data
Data Reviewed
Vital Signs / I&O / Oxygen:
Vital Signs
Temp Pulse Resp BP Pulse Ox
97.8 F 66 14 109/59 99
11/22/23 11:00 11/22/23 11:15 11/22/23 11:15 11/22/23 11:15 11/22/23 11:15
Intake and Output
11/21/23 11/22/23 11/23/23
06:59 06:59 06:59
Intake Total 230.9 / 238.9
Output Total 1250 / 1250 750 / 750 0 / 0
Balance -1250 / -1250 -519.1 / -511.1
SaO2 [NIV (Non Invasive 95
Ventilation)]
SaO2 [CPAP/PSV] 95
SaO2 [A/C] 96
SaO2 99
Nasal Cannula flow liters per 55
minute
Physical Exam
General: Respiratory Distress (mild with activity)
HEENT: Normocephalic and Moist Mucous Membranes
Cardiovascular: Regular Rhythm, Murmur (n) and Peripheral Edema (n)
Respiratory: Crackles and Stridor (n)
GI: Soft, Non Distended and Non Tender
Neurology: Awake, Alert and No Motor Deficits
Skin: Dry
Labs/Micro/Reports
Lab Data
11/22/23 04:43
11/22/23 04:43
Laboratory Results
11/21/23 11/21/23 11/21/23
14:52 18:50 21:41
PT 14.9 H
INR 1.14 D
APTT 40.4 H
pH 7.53 H
pCO2 37
pO2 56 L*
HCO3 30.9 H
O2 Delivery Level
11/22/23 11/22/23 11/22/23
01:40 04:43 05:19
PT 15.2 H
INR 1.17
APTT 150.5 H*
pH 7.48 H
pCO2 42
pO2 85
HCO3 31.3 H
O2 Delivery Level Niv
11/22/23 11/22/23
08:15 09:14
PT
INR
APTT Cancelled 112.9 H
pH
pCO2
pO2
HCO3
O2 Delivery Level
Microbiology
11/21/23 15:35 Nasal Swab Influenza Types A & B (SONIA) - Final
Negative for Influenza A & B, NAAT
Negative results must be combined with clinical observations
and patient history.
Nucleic Acid Amplification test (NAAT)performed on the
[email or web address] platform.
11/21/23 15:35 Nasalpharynx Respiratory Syncytial Virus Culture - Final
Negative for Respiratory Syncytial Virus.
A false negative result may be obtained with a specimen
collected early in the acute phase. If symptoms persist, a
new specimen should be tested.
11/17/23 13:16 Blood/Venous Blood Culture - Preliminary
No Growth in 4 days- Final report to follow
11/18/23 11:50 Blood/Venous Blood Culture - Preliminary
No Growth in 72 hours- Final report to follow
11/18/23 09:27 Tracheal Aspirate Respiratory Culture - Final
Usual Respiratory Amelie
11/18/23 09:27 Tracheal Aspirate Gram Stain - Final
[2023-11-22 11:57] LABS: Glucose - Point of Care 100 mg/dl (70-99)
--- NOTE | 2023-11-22 12:00 | PTCARENOTE ---
pt reassessed, remains drowsy but arouses easily to voice. orientedx3 but forgetful. tolerating high flow nasal cannula 100%, 55L. sat 98%. no further changes in assessment noted.
--- NOTE | 2023-11-22 13:06 | W.PN.NEPH.PH ---
Today's Communication / Plan
-
-follow up [facility] to better ascertain volume status. will decide on HD vs. PD depending on results
Assessment/Plan
-
Assessment
-ESRD on PD
-volume overload
-CHF
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
-PAD
-HTN
-edema
-CAD/CABG
-DM2
-Hyponatremia
-In-hospital cardiac arrest 11/17/23
-VT arrest
s/p shock x1 and Epi x1 11/17/23
Plan
-PD ordered, alternate 4.25% with 2.5% (weights down significantly), 2L q4h
-plan for [facility]HC today
-there is a possibility that he will need to be converted to HD here depending on volume status and for homegoing planning, but will await [facility] report
-Hemodynamically stable
-replete K as needed
-follow Mg
-hyponatremia resolved
-patient very sleepy this AM
-
-
Date of Service: November 22, 2023
CC / HPI / ROS
-
Chief Complaint:
ESRD
History of Present Illness:
PD 2.5% alternating with 4.25%
PD in progress
s/p code 9 with VT 11/17/23
on high flow O2
Review of Systems:
no fever
no CP
more sob today
Weights continue to significantly drop
Labs
-
Labs:
WBC 5.8 10^3/uL (4.8-10.8) 11/22/23 04:43
RBC 3.18 10^6/uL (4.70-6.10) L 11/22/23 04:43
Hgb 9.3 g/dL (13.0-18.0) L 11/22/23 04:43
Hct 27.9 % (39.0-52.0) L 11/22/23 04:43
Plt Count 167 10^3/uL (130-400) 11/22/23 04:43
Sodium 134 mmol/L (135-145) L 11/22/23 04:43
Potassium 3.7 mmol/L (3.5-5.1) 11/22/23 04:43
Chloride 92 mmol/L (98-107) L 11/22/23 04:43
Carbon Dioxide 32 mmol/L (22-30) H 11/22/23 04:43
BUN 56 mg/dl (9-20) H 11/22/23 04:43
Creatinine 7.5 mg/dL (0.7-1.3) H* 11/22/23 04:43
eGFR 7.49 11/22/23 04:43
Glucose 229 mg/dl (70-99) H 11/22/23 04:43
Calcium 8.2 mg/dl (8.4-10.2) L 11/22/23 04:43
Phosphorus 3.4 mg/dl (2.5-4.5) 11/22/23 04:43
Ldo-G-Cryvqhiqvvp Pept > 35693 pg/ml 11/21/23 15:52
Albumin 2.7 g/dl (3.5-5.0) L 11/12/23 13:11
Physical Exam
-
Vital Signs:
Vital Signs
Temp Pulse Resp BP Pulse Ox
97.8 F 62 15 101/80 96
11/22/23 11:00 11/22/23 12:00 11/22/23 12:00 11/22/23 12:00 11/22/23 12:00
Cardiovascular:: Regular rate and rhythm
Respiratory:: Bilateral: Coarse
Lung Excursion:: Normal
Abdomen:: Distended, Nontender and Soft
Bowel Sounds:: Normal
Extremity Edema:: +1: Right: and None: Left:
Sweeney Catheter: No
[2023-11-22] MEDS: ANESTHETIC LOZENGE 1 LOZENGE PO (13:33)
--- NOTE | 2023-11-22 13:49 | W.PN.CARDCBS ---
Today's Communication / Plan
-
Pt with decline overnight with increased resp requirements and lethargy. BC pending.
QTc has improved. Given VT and cardiac arrest and EKG changes with marked T wave abnormalities, will need eventual right and left heart cath. This was deferred on 11/22/2023 given his resp insufficiency.
The patient has known CAD status post CABG in 1995. Continue aspirin, statin and midodrine for blood pressure support.
Troponin has been indeterminate level and some degree of elevation could be attributed to CPR.
Will make NPO midnight for possible right and left heart cath 11/23.
Continue volume control with peritoneal dialysis. Nephrology evaluating about whether to transition to HD.
Reviewed with hris specialist.
Impression / Plan
-
PCP: Dr. Susan Starkey
Cardiology: Unknown
Nephrology: [facility]
Vascular surgery: Dr. Sweeney
Impression:
Respiratory failure, multifactorial on [place]if[place]
In-hospital cardiac arrest 11/17/23
VT arrest
s/p shock x1 and Epi x1 11/17/23
Prolonged QT
Admitted with TME, uremia and anasarca 11/12/23
ESRD on PD
failing at home PD due to cognitive dysfunction
Elevated Troponin
CAD s/p CABG outside hospital 1995
Acute HFpEF
Anasarca
PAD
fem pop bypass 2015
right CEA at [place] 03/2019
left CEA at [place] 07/2019
right SFA RANCH HAND 2020
Chronic warfarin OAC for PAD
DM 2
Echo 11/15/23: EF 55-60%, trace MR
Echo 11/17/23: LVEF 50% with mild LVH. No significant valve disease.
Plan:
HPI: Patient [facility] to [facility] with increasing SOB after he had trouble keeping up with his home PD treatments and he was admitted with acute HF and volume overload, cardiology is now consulted after a VT arrest today. Patient was admitted
11/12/23 with anasarca, SOB and failing PD at home. Patient lives in [place] and follows with a hand sole sewer at [facility], but came to for care. Patient and also noted increasing somnolence and some confusion which overall seemed to be
contributing to trouble with maintaining PD treatments at home resulting in weight gain and SOB. Weight was up at least 10 lbs on admission. Patient was admitted and seen by nephrology at , PD was restarted in the hospital. Patient had an echo
11/15/23 that showed a preserved EF. There is a h/o CABG at an outside hospital in 1995, primary sleep manager unknown and patient has never seen cardiology at before. Patient with hyperkalemia on admission that resolved with PD. QT was prolonged to
486 ms on ECG on admission 11/12/23 in the setting of RBBB, then 522 ms 11/16/23, then 543 ms this afternoon at 1330. Patient with a run of VT and confusion noted by nursing around 1330 today and magnesium rider ordered. Last magnesium level was 1.6 on
11/16/23. Patient then had sustained VT and cardiac arrest prompting code 9. Cardiology arrived with rest of the team. Patient undergoing CPR and received Epi x1 and shocked x1 with ROSC. Patient intubated by anesthesia team.
Pt with decline overnight with increased resp requirements and lethargy. BC pending.
QTc has improved. Given VT and cardiac arrest and EKG changes with marked T wave abnormalities, will need eventual right and left heart cath. This was deferred on 11/22/2023 given his resp insufficiency.
The patient has known CAD status post CABG in 1995. Continue aspirin, statin and midodrine for blood pressure support.
Troponin has been indeterminate level and some degree of elevation could be attributed to CPR.
Will make NPO midnight for possible right and left heart cath 11/23.
Continue volume control with peritoneal dialysis. Nephrology evaluating about whether to transition to HD.
Reviewed with hris specialist.
CCT: 32 min
Progress Note - Commercial Escrow Officer
Subjective
Date of Service: November 22, 2023
Pt seen and examined. Lethargic and denies chest pain
Objective
Labs:
11/22/23 04:43
11/22/23 04:43
Labs
Hgb 9.3 g/dL (13.0-18.0) L 11/22/23 04:43
Hct 27.9 % (39.0-52.0) L 11/22/23 04:43
Plt Count 167 10^3/uL (130-400) 11/22/23 04:43
PT 15.2 Sec (11.4-14.6) H 11/22/23 04:43
INR 1.17 11/22/23 04:43
APTT 112.9 Sec (23.4-35.0) H 11/22/23 09:14
Sodium 134 mmol/L (135-145) L 11/22/23 04:43
Potassium 3.7 mmol/L (3.5-5.1) 11/22/23 04:43
BUN 56 mg/dl (9-20) H 11/22/23 04:43
Creatinine 7.5 mg/dL (0.7-1.3) H* 11/22/23 04:43
Glucose 229 mg/dl (70-99) H 11/22/23 04:43
Vital Signs and I&O:
Vital Signs
Temp Pulse Resp BP Pulse Ox
97.8 F 60 15 115/94 98
11/22/23 11:00 11/22/23 13:00 11/22/23 13:00 11/22/23 13:00 11/22/23 13:00
Vital Signs
Temp Pulse Resp BP Pulse Ox
97.8 F 60 15 115/94 98
11/22/23 11:00 11/22/23 13:00 11/22/23 13:00 11/22/23 13:00 11/22/23 13:00
Intake & Output
01/13/24 01/14/24 01/15/24 01/16/24
06:59 06:59 06:59 06:59
Intake Total 867.4 / 867.4 230.9 / 238.9 52 / 52
Output Total 1255 / 1255 1250 / 1250 750 / 750 100 / 100
Balance -387.6 / -387.6 -1250 / -1250 -519.1 / -511.1 -48 / -48
Physical Exam
Physical Exam
General: Lethargic
Neck: Negative JVD
Heart: Regular, Negative S3 positive S1/S2, Negative S4, No murmur
Lungs: CTA b/l, negative wheezes/rales/rhonchi
Abd: Positive BS, NT/ND, neg rebound/rigidity/guarding
Ext: Negative cyanosis/clubbing/edema
Neuro: nonfocal
--- NOTE | 2023-11-22 14:37 | PTOTSP ---
SWALLOW RE-EVALUATION:
Swallowing judged to be WFL. No overt sx s/o airway penetration. Elevated risk due to respiratory compromise and debility.
Recommend:
1. initiate Regular solids selecting softer/moist; thin liquids
2. staff assistance for upright seating and tray set up
3. reflux and general swallowing precautions
4. meds as tolerated
Speech to f/u.
[2023-11-22 15:19] LABS: Glucose - Point of Care 176 mg/dl (70-99)
--- NOTE | 2023-11-22 15:37 | CM ---
CM following re: discharge planning.
Discussed in Rounds,reviewed pt's chart, met with pt. Per Rounds meeting, pt requires 55 L HFNC of O2 with saturation of 98%, receiving PD, continue supportive care. Nephrology, Cardiology following.
Pt has been receiving PD at home managed by [facility]. Per Liquor Bridge Operator it is a possibility that pt might be converted to HD treatment.
PT and OT will re-evaluate the pt to determine a level of care at discharge.
D/C plan: TBD and will depend on pt's progress. SNF level of care if pt will be switched to HD.
CM will follow with discharge plan updates as hospitalization progresses
[2023-11-22] MEDS: NOVOLOG FLEXPEN-MODERATE RESISTANCE 1 UNITS SC (15:49)
--- NOTE | 2023-11-22 16:00 | PTCARENOTE ---
pt reassessed, resting comfortably, at bedside. pt more alert this afternoon tolerating high flow. no further changes in assessment noted.
[2023-11-22 16:46] LABS: APTT 69.5 Sec (23.4-35.0)
[2023-11-22] MEDS: ProAmatine PO (17:09)
[2023-11-22 18:32] LABS: Glucose - Point of Care 91 mg/dl (70-99)
[2023-11-22] MEDS: APRESOLINE 10 MG IV (19:34)
--- NOTE | 2023-11-22 20:00 | PTCARENOTE ---
Assume care from AM RN. AAOx2, forgetful and anxious at times. [place]. Sinus arrhythmia to St w/ PAC, and PVC, BBB. Trace of BLLE edema. Lung sounds are crackles at the bases, Shallow breathing, SaO2 94-96% HF 55L 100%. nonproductive cough. Abd round
and obese, oliguric. pt reamins on Heparin gtt at 8 ml/hr. Q 2 turn. Will continue w/ tx plan.
[2023-11-22] MEDS: LIPITOR 40 MG PO (21:28)
[2023-11-22 23:19] LABS: Glucose - Point of Care 79 mg/dl (70-99)
[2023-11-22 23:21] LABS: APTT 73.5 Sec (23.4-35.0)
[2023-11-23] VITALS (27 sets, daily range): BP systolic 120–174; BP diastolic 52–111; BMI 29.1
--- NOTE | 2023-11-23 00:15 | PTCARENOTE ---
Pt's PTT was therapeutic will cont tx per protocol. Glucose level was 79, pt given orange juice. Pt remains on HF 55L 100%. No major changes from previous assessment. Pt remains complaint and is on Medsitter.
[2023-11-23] MEDS: DILAUDID 0.25 MG IV ×2 (00:50→21:50)
[2023-11-23] MEDS: TYLENOL PO ×6 (01:06→21:52)
[2023-11-23] MEDS: ProAmatine PO ×2 (01:06→09:23)
--- NOTE | 2023-11-23 01:31 | PTCARENOTE ---
Pt had 18 beats of Vtach and 5 sec pause. Blood work drawn early and FIELD PROFESSIONAL notified. Pt was asymptomatic.
[2023-11-23 01:47] LABS: % Basophils 0.6 % (0-2); % Eosinophils 2.8 % (0-6); % Immature Granulocytes 0.3 % (0-0.5); % Lymphocytes 6.6 % (20.5-51.1); % Monocytes 6.5 % (1.7-9.3); % Neutrophils 83.2 % (42.2-75.2); Absolute Eosinophils 0.2 10^3/uL (0-0.7); Absolute Lymphocytes 0.5 10^3/uL (1.2-3.4); Absolute Monocytes 0.4 10^3/uL (0.1-0.6); Absolute Neutrophils 5.6 10^3/uL (1.4-6.5); Hematocrit 26.8 % (39.0-52.0); Mean Corp Hgb Conc. 33.6 g/dL (33.0-37.0); Mean Corpuscular Hgb 29.3 pg (27.0-31.0); Mean Corpuscular Volume 87.3 fL (80.0-94.0); Mean Platelet Volume 11.2 fL (7.4-10.4); Nucleated Red Blood Cells % 0 % (-); Platelet Count 194 10^3/uL (130-400); Red Blood Cell Count 3.07 10^6/uL (4.70-6.10); Red Cell Dist. Width 15.7 % (11.5-14.5); White Blood Cell Count 6.8 10^3/uL (4.8-10.8)
[2023-11-23 02:08] LABS: Blood Urea Nitrogen 50 mg/dl (9-20); Calcium 7.7 mg/dl (8.4-10.2); Carbon Dioxide 33 mmol/L (22-30); Chloride 94 mmol/L (98-107); Estimated Creatinine Clearance 10 ml/min; Glucose 148 mg/dl (70-99); Magnesium 2.3 mg/dl (1.6-2.3); Potassium 3.7 mmol/L (3.5-5.1); Sodium 132 mmol/L (135-145)
[2023-11-23] MEDS: KCL 160 MEQ IV (02:35)
[2023-11-23] MEDS: APRESOLINE 10 MG IV ×3 (02:35→23:07)
--- NOTE | 2023-11-23 04:00 | PTCARENOTE ---
no major changes. PD done. Pt SBP has been >140. PRN hydralazine given. Will cont w/ tx
[2023-11-23] MEDS: HEPARIN 25000 UNITS/250 ML IV (04:06)
[2023-11-23 05:13] LABS: Glucose - Point of Care 130 mg/dl (70-99)
[2023-11-23] MEDS: NOVOLOG FLEXPEN-MODERATE RESISTANCE SC ×2 (05:13→17:39)
[2023-11-23] MEDS: NOVOLOG FLEXPEN SC ×3 (05:14→17:39)
[2023-11-23 06:27] LABS: INR 1.11; PT 14.5 Sec (11.4-14.6)
[2023-11-23 06:29] LABS: APTT 67.6 Sec (23.4-35.0)
--- NOTE | 2023-11-23 07:30 | PTCARENOTE ---
Received patient from shift engineer RN. Patient is drowsy, but awakens, is able to state that he is at [facility] and it is November of 2023. Received in report that patient can be intermittently confused. Patient is currently saturating
98% on high flow , 85% 55L. Will attempt to wean down this shift. Did not require bipap last night. Patient respirations are in the 20s. decreased breath sounds throughout. Patient has irregular HR. monitor says afib at times, but patient has
SR with frequent PACs, and atrial tachycardia at times of assessment. On heparin gtt at 900units/hr infusing into left midline. Patient is NPO for Cath today, Oliguric. Started PD drain as charted in worklist. Will review orders, maintain safe
environment.
[2023-11-23 08:07] LABS: Glucose - Point of Care 149 mg/dl (70-99)
[2023-11-23] MEDS: LANTUS SC (08:15)
--- NOTE | 2023-11-23 08:55 | W.PN.HOSP.TC ---
Today's Communication/Plan
-
High Flow Oxygen, CT ches, consideration for cardiac cath and or HD.
Assessment / Plan
Assessment / Plan
Physical exam:
General: Acutely ill.
HEENT: Normocephalic, Atraumatic and Moist Mucous Membranes
Respiratory: Currently on BiPAP. Increased work of breathing. Bilateral Crackles in the bases. No wheezes. No rhonchi
Cardiac: Regular Rhythm and tachycardic, and S1/S2
GI: Soft, Nontender and Nondistended
Musculoskeletal: No Clubbing, No Cyanosis. Presence of edema
Neuro: Alert oriented, generalized weakness
Psych: Calm.
A/P:
# Acute hypoxic respiratory failure
-Cont HFO
-Nephrology aggressively removing as much fluid as possible through PD
-Cardiology planning cardiac cath but deemed to unstable to undergo cardiac cath at the moment.
-Pulm plan to order CT Chest and holding off on antibiotics (no clear sx infection but will reeval after ct).
-Bipap as needed
-Discussed with RN, transcript clerk, drink waiter, pulmonary/md physician dermatologist today on 11/23.
-Monitor respiratory status closely
-Patient at very high risk of respiratory deterioration or compromise
-Beta-blockers for episodes of atrial tachycardia (no ventricular arrhythmias).
-He has been started on midodrine for blood pressure support as well.
-Keep heparin drip for ACS protocol and subtherapeutic INR
-Keep K>4 (with some leniency due to ESRD) and Mg>2
#Cardiorespiratory arrest
-ROSC on 11/17
-Cardiology planning cardiac catheterization on Wednesday-absolutely agree with ischemic workup as planned by cardiology.
-On aspirin, beta-blockers increased metoprolol 25 mg twice a day, on statin atorvastatin 40 mg p.o. nightly. On heparin gtt
-Continue oxygen supplementation and wean as able
-Peritoneal dialysis per nephrology
-Latest EKG if QTc is 450 which is an improvement from prior EKGs(>500's).
Prior to today:
-Code called. V. tach-->TDP-->V Fib-->PEA. CPR abt 3 min and Epinephrine x3. V Fib s/p shock 360J x1--> ROSC achieved.
-IV magnesium ordered earlier but not given yet and was given during the code.
-Twelve-lead EKG with prolonged QTc
-I participated in the code along with the rest of the team.
-Discussed with cardiology team at bedside
-Updated over the phone--> understanding of critical situation, and will also like to continue full medical efforts at this point in time.
-Technical Agronomist consulted
-Avoid QTc prolonging medications at all cost.
-Might need cardiac catheterization but will defer to cardiology
-Transthoracic echocardiogram--> EF 50%, mild concentric left ventricular hypertrophy, no significant changes from prior echo.
#Chest pain
-Today chest pain on 11/20 appears atypical probably related to CPR. Nonetheless, given history of CAD and unknown current CAD status, will add nitro as needed.
-Also obtained twelve-lead EKG and pretty much unremarkable from prior EKGs. Did not obtain cardiac enzymes given his end-stage renal disease and plan for cardiac cath on Wednesday.
-Tylenol as needed.
-On aspirin, beta-blockers increased metoprolol 25 mg twice a day, on statin atorvastatin 40 mg p.o. nightly.
-Continue to monitor
#Acute hypoxic respiratory failure from prior
-Patient extubated yesterday on 11/18
-Continue supplemental oxygen
Prior to today:
-In the morning he was on 6 L of oxygen
-Obtained chest x-ray today on 11/17
-Start empirically on IV Zosyn and vancomycin obtain blood cultures prior.
-Patient deteriorated and went into cardiac arrest and now on mechanical ventilation
-Intubated by anesthesia during code.
-Pulmonary md physician dermatologist consulted
-Nephrology feels peritoneal dialysis enough at this point.
# Ruled out sepsis/septic shock
-Antibiotics discontinued
-Off pressors
#Hypokalemia
Replete and trend
#Hypomagnesemia
-Magnesium 2.5 today
-On magnesium oxide 500 mg twice a day
-Will continue to monitor in light of recent cardiorespiratory event
# Toxic metabolic encephalopathy
-Multifactorial in nature with uremia concerns and now possible sepsis contributing and hypoxia at this point
-Head CT with impression of no acute intracranial abnormality noted.Increased soft tissue attenuation in the 0deep subcutaneous tissues adjacent to the outer table of the posterior midline/left paramidline parietal region, raising the possibility of
posttraumatic soft tissue swelling/contusion. Clinical correlation recommended.
-UA negative. Blood cultures in lab negative so far. Afebrile.
-continue to monitor mentation
-MRI brain negative for acute stroke or pathology.
-Ativan has been held. Gabapentin is as needed. Not on any HAND BUFFER depressing agents.
-About to undergo EEG
-Mentation seems back to baseline.
# End-stage renal disease on peritoneal dialysis
#Anasarca 2/2 above
# Acute hypoxic respiratory insufficiency secondary to above
-Nephrology on consult
-Might need hemodialysis but defer to nephrology
-Calcitrol, calcium acetate
-Volume removal should help.
-Nephro on board.
# Diabetic foot blister wound
-does not look infectious
-afebrile
-ctm
-wound care consulted
# CHF exacerbation
-BNP [id number]
-Chest x-ray with impression of Findings suspicious for mild congestive heart failure.
-Strict SOLIS
-Daily weight
-Fluid restriction.
-ECHO noted EF of 55 to 60%. Diastolic function indeterminant.
-nephrology consulted
# Anemia of chronic kidney disease
-Hemoglobin stable
-No active bleeding
-Continue to monitor
#Severe R PVD with claudication
#HX of vascular stenting (RLE x 2, LLE x 2)
-s/p angiopathy, right iliac artery,� balloon angioplasty and also status post OR on 06/13 for lysis� removal, SFA stent and external iliac stent
- continue ASA/Statin/cilostazol
-Gabapentin continued
-Coumadin prior to intubation, on 4 mg. INR 2.78 today
-daily PT/INR. INR latest 1.17
# RLE DVT
-On a/c warfarin for over 2 years. Currently on heparin drip
Essential HTN
- continue Norvasc
- continue bisoprolol dose increased to 10 mg twice daily
- Switch to p.o. hydralazine on discharge
IDDM
-sliding scale, lantus and pre-meal insulin. Basal 30 units and aspart 8 units before meals.
-CHO diet
#HLD
- statin/Zetia
#CAD s/p CABG
- continue ASA/Statin/BB
Depression - Discontinued Zoloft
DVT ppx: coumadin--> continue to hold this plan for cardiac cath and INR subtherapeutic
Code: Full (discussed with patient and about CODE STATUS and he wants to remain full code)
Total Critical Care Time 35 minutes. I was immediately available to the patient and staff. I personally examined, reviewed labs, diagnostic images/reports, interpretations, treatment plans, discussed patient care with other providers and family
or caregivers (if patient is unable to make decisions), entered orders as appropriate and documented the medical record.
Anticipated Discharge: > 48 hours
Subjective/Interval History
-
Date of Service: November 23, 2023
Patient remains on high flow oxygen, mental status varies, looks frail
Objective Data
-
Labs:
Laboratory Results
11/22/23 11/23/23 11/23/23
23:02 01:30 05:12
WBC 6.8
Hgb 9.0 L
Hct 26.8 L
Plt Count 194
PT Cancelled
INR Cancelled
APTT 73.5 H Cancelled
Sodium 132 L
Potassium 3.7
Chloride 94 L
Carbon Dioxide 33 H
BUN 50 H
Creatinine 7.1 H*
Glucose 148 H
Calcium 7.7 L
11/23/23 11/23/23
05:52 12:40
WBC
Hgb
Hct
Plt Count
PT 14.5
INR 1.11
APTT 67.6 H Pending
Sodium
Potassium
Chloride
Carbon Dioxide
BUN
Creatinine
Glucose
Calcium
Vital Signs:
Vital Signs
Temp Pulse Resp BP Pulse Ox
98.0 F 119 22 164/79 95
11/23/23 07:52 11/23/23 07:05 11/23/23 07:05 11/23/23 07:05 11/23/23 07:53
I&O
11/22/23 11/23/23 11/24/23
06:59 06:59 06:59
Intake Total 230.9 / 238.9 825 / 834
Output Total 750 / 750 700 / 700 0 / 0
Balance -519.1 / -511.1 125 / 134
[2023-11-23] MEDS: NSS (PRESERVATIVE FREE) 10 ML IV (09:21)
[2023-11-23] MEDS: PROTONIX IV 40 MG IV (09:21)
[2023-11-23] MEDS: MAGNESIUM OXIDE 500 MG PO ×2 (09:22→19:33)
[2023-11-23] MEDS: LOW STRENGTH ASPIRIN 81 MG PO (09:22)
[2023-11-23] MEDS: MIRALAX PO (09:22)
[2023-11-23] MEDS: LOPRESSOR 25 MG PO ×2 (09:22→19:33)
[2023-11-23] MEDS: ZETIA 10 MG PO (09:22)
--- NOTE | 2023-11-23 09:39 | PN.DE.MGMTRT ---
Insulin Management
- -
11/18/2023 Diabetes Management Follow up
Admitted 11/12 for R foot wound, confusion, SOB, swelling. PMH renal failure with peritoneal dialysis, HTN, PVD type 2 diabetes. Prior to admission chart reflects he was taking 60 units Basaglar daily with NovoLog 28 units BID. A1C 8.6%. Patient
had cardiac arrest 11/16 now intubated on mechanical ventilation and insulin infusion. Prior to this patient was receiving Lantus in AM with AC NovoLog at reduced doses.
Will continue glycemic protocol at this time. If patient is weaned off of ventilator will assess for readiness to transition to subcutaneous insulin.
11/19/2023: Diabetes Management F/U:
Pt extubated last evening. Doing well, sitting up in bed, offers no complaints.
Glucose trended up to 197, remains on glycemic protocol requiring 0.8-7 units of insulin/ hr while NPO.
Pt was taking 60 units Basaglar daily with NovoLog 28 units BID PUBLIC AFFAIRS MANAGER.
Will transition off drip. Give Lantus 30 units NOW, turn drip off 1 hr after.
Start AC NovoLog 8 units and moderate corrective insulin with meals. Start 1800 ADA diet. Accucheks AC/HS
Will follow for further needed insulin adjustments. Plan of care d/w pt and Nurse.
11/22/2023: Diabetes Management F/U:
Pt transferred back to ICU for increased O2 requirements.
Currently NPO for R/LHC today. Premeal glucose trended up to 345 requiring 3-7 units of corrective insulin.
Will make no changes to regimen at this time, reassess after procedure and make necessary adjustments to insulin dose
11/23/2023 Diabetes Management Follow Up
Patient glucose controlled on current regimen, trended down to 79 @ HS. Will slightly decrease AM lantus dose to 27 units to start Wednesday, 11/24.
Patient is NPO for procedure, will order one time dose of lantus 15 units now.
Diabetes History
- -
Type of Diabetes: 2 requiring insulin
Pre-Admission Diabetes Regimen
11/23/23
01:30
Creatinine 7.1 H*
Lab Results
Hemoglobin A1c 8.6 % (4.0-5.6) H 11/13/23 06:09
Insulin Pump Settings
IP Diabetes Regimen
11/22/23 11/22/23 11/22/23
11:45 15:08 18:21
Glucose
POC Glucose 100 H 176 H 91
11/22/23 11/23/23 11/23/23
23:07 01:30 05:02
Glucose 148 H
POC Glucose 79 130 H
11/23/23
07:56
Glucose
POC Glucose 149 H
Meal type: Breakfast
Patient Education
--- NOTE | 2023-11-23 10:01 | W.PN.INTV ---
Today's Communication / Plan
Recommendations
Continue peritoneal dialysis
Monitor off antibiotic
Follow electrolytes
Wean down FiO2
For cardiac cath today
Assessment
-
Assessment:
Mr Blair Thakkar is a 63/M adm 11-12 with confusion and EV edema. Known h/o CKD on PD, recently not able to do PD himself due to confusion, did. At ER, confused, hypoxemic. Seen by Neurology, no acute findings on CT and MRI brain. Seen by
Renal, resumed PD soon after adm. VTach episode on night 11-16, received IV Mag with resolution. VTach returned on early afternoon 11-17, started Mag IV infusion, MS continued deteriorating, became unresponsive, VTach deteriorated to TDP, then
VFib, shock at 360K x1, developed PEA, received 3 doses epinephrine, total CPR time about 3 min with ROSC, intubated by anesthesia with no reported difficulty
Impression:
Cardiac arrest 11-17-23
VTach, TDP, VFib, PEA
Low normal serum Mg on 11-16 and given IV Mag on 11-16 and also 11-17 (Mg was running at time of arrest)
Conditions [place]:
CKD on PD
CAD s/p CABG
PVD s/p bilateral EV stenting
Emergent stenting RLE Jun 2021 ()
DM
HTN
HLD
Depression
Obesity

Plan:
Overnight 11/21/2023: Transferred back to the ICU with increased work of breathing necessitating noninvasive mechanical ventilation.
Chest x-ray at that time with mild pulmonary edema bilaterally.
ABG with respiratory alkalosis.
-
Clinically improved. Has not required Noninvasive mechanical ventilation since 11/22/2019 4 AM. He refused to use it last night.
Recent for decompensation perhaps multifactorial including volume overload, cannot rule out aspiration.
At this point no evidence for infection.
Continue to hold antibiotics for now.
Hold noninvasive mechanical ventilation for now: May use at night. Patient does not like noninvasive mechanical ventilation.
Continue high flow oxygen, currently, 80% FiO2. Wean down as able, maintain pulse ox above 90%.
-
He is more comfortable, cooperative.Able to speak in full sentences.
Increased work of breathing with activity.
Denies any phlegm production.
I will obtain a speech and swallow evaluation. If cleared will advance diet.

VTach evening 11-16
Low normal Mag, replaced IV at time of event
No gross e-lyte abnormalities at time of VTach, TDP, VFib/PEA
Status post cardiac arrest 11-17
Required intubation-CPR, 3 epi doses, shock x1 at 360. CPR for about 3 min till ROSC
Extubated 11/18/2023.
Continue to monitor electrolytes
Continue quality assurance monitor.
Cardiology continues to follow. Plan for left and right heart catheterization today.
-
Suspect patient is volume overloaded.
Continue to attempt negative fluid balance via peritoneal dialysis.
Suspect likely will need hemodialysis. Patient has refused in the past. Nephrology continues to follow.
-
Antibiotics discontinued 11/19/2023. No evidence for infection.
Restarted on cefepime 11/21/2023: in reviewing x-rays no acute infiltrates. No evidence for infection. Discontinue and observe.
Blood cxs so far negative
Resp secs cx negative
NE off since 11-18
-
Glycemic control: Continue lantus and AC novolog 11-19
ADA 1800 luh diet
-
On chronic coumadin for h/o PVD s/p stents
Heparin drip. Follow PTT
Monitor for bleeding
-
Critical care statement: A total of 32 minutes of critical care time was provided for this patient today. This includes management of unstable vital signs, evaluation of the patient at bedside, reviewing the patient's pertinent medical records
including ventilator settings, arterial blood gases, radiographs, microbiology, laboratory evaluations and discussion with primary team, critical care nursing, and respiratory therapy.

Diagnostic tests:
CXR 11-17-23 pm: interim intubation and GT. pulm vasc and parenchymal congestion.
CXR - and 08-31 AM, portable, improved pulm vasc and parenchymal congestion, sternotomy
TTE 11-17-23 (post cardiac arrest)
CONCLUSIONS
Limited study
Normal left ventricular chamber size. Mild concentric left ventricular
hypertrophy. Normal left ventricular systolic function. Left ventricular
ejection fraction is 50% by Grimaldo' s method. Diastology not assessed.
Since echocardiogram November 15, 2023 which was reviewed, there is no
significant change.
TTE 11-15-23
CONCLUSIONS
Normal left ventricular chamber size. Normal left ventricular systolic
function. Normal regional wall motion. Mild concentric left ventricular
hypertrophy. Left ventricular ejection fraction is 55-60% by visual estimate.
Diastolic function indeterminate due to atrial fibrillation.
Mildly thickened mitral valve leaflets. Mitral annular calcification. Mitral
valve opens normally. Trace mitral regurgitation.
Subjective Dataa
Subjective Data
Date of Service:
Date of Service: November 23, 2023
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
Subjective:
Continues to be on high flow oxygen from
Did not tolerate noninvasive mechanical ventilation last night.
Denies significant phlegm production.
Denies nausea or vomiting.
Review of Systems
Cardiopulmonary: Dyspnea, Dyspnea on Exertion, Cough (n) and Sputum Production (n)
GI: Abdominal Pain (n) and Nausea (n)
Objective Data
Data Reviewed
Vital Signs / I&O / Oxygen:
Vital Signs
Temp Pulse Resp BP Pulse Ox
98.0 F 125 22 162/95 95
11/23/23 07:52 11/23/23 09:22 11/23/23 07:05 11/23/23 09:23 11/23/23 08:00
Intake and Output
11/22/23 11/23/23 11/24/23
06:59 06:59 06:59
Intake Total 230.9 / 238.9 825 / 834
Output Total 750 / 750 700 / 700 0 / 0
Balance -519.1 / -511.1 125 / 134
SaO2 [NIV (Non Invasive 95
Ventilation)]
SaO2 [CPAP/PSV] 95
SaO2 [A/C] 96
SaO2 95
Nasal Cannula flow liters per 55
minute
Physical Exam
General: Respiratory Distress (mild with activity)
HEENT: Normocephalic and Moist Mucous Membranes
Cardiovascular: Regular Rhythm, Murmur (n) and Peripheral Edema (n)
Respiratory: Crackles and Stridor (n)
GI: Soft, Non Distended and Non Tender
Neurology: Awake, Alert and No Motor Deficits
Skin: Dry
Labs/Micro/Reports
Lab Data
11/23/23 01:30
11/23/23 01:30
Laboratory Results
11/22/23 11/22/23 11/22/23
09:14 16:25 23:02
PT
INR
APTT 112.9 H 69.5 H 73.5 H
11/23/23 11/23/23
05:12 05:52
PT Cancelled 14.5
INR Cancelled 1.11
APTT Cancelled 67.6 H
Microbiology
11/21/23 15:52 Blood/Venous Blood Culture - Preliminary
No Growth in 24 hours- Final report to follow
11/17/23 13:16 Blood/Venous Blood Culture - Final
No Growth - Final Report
11/18/23 11:50 Blood/Venous Blood Culture - Preliminary
No Growth in 4 days- Final report to follow
11/21/23 15:35 Nasal Swab Influenza Types A & B (SONIA) - Final
Negative for Influenza A & B, NAAT
Negative results must be combined with clinical observations
and patient history.
Nucleic Acid Amplification test (NAAT)performed on the
[employer] platform.
11/21/23 15:35 Nasalpharynx Respiratory Syncytial Virus Culture - Final
Negative for Respiratory Syncytial Virus.
A false negative result may be obtained with a specimen
collected early in the acute phase. If symptoms persist, a
new specimen should be tested.
11/18/23 09:27 Tracheal Aspirate Respiratory Culture - Final
Usual Respiratory Amelie
11/18/23 09:27 Tracheal Aspirate Gram Stain - Final
[2023-11-23] MEDS: LANTUS 0.149999999999999994 UNITS SC (10:25)
[2023-11-23 11:43] LABS: Glucose - Point of Care 262 mg/dl (70-99)
[2023-11-23] MEDS: NOVOLOG FLEXPEN-MODERATE RESISTANCE 5 UNITS SC (11:55)
--- NOTE | 2023-11-23 12:00 | PTCARENOTE ---
No changes in patient's assessment. 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
--- NOTE | 2023-11-23 12:42 | W.PN.NEPH.PH ---
Today's Communication / Plan
-
-changed to all 4.25% bags
Assessment/Plan
-
Assessment
-ESRD on PD
-volume overload
-CHF
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
-PAD
-HTN
-edema
-CAD/CABG
-DM2
-Hyponatremia
-In-hospital cardiac arrest 11/17/23
-VT arrest
s/p shock x1 and Epi x1 11/17/23
Plan
-PD ordered, back to all 4.25% bags, 2L q4h
-plan for RHC and LHC today
-there is a possibility that he will need to be converted to HD here depending on volume status and for homegoing planning, but will await cath reports
-Hemodynamically stable
-replete K as needed
-follow Mg
-hyponatremia resolved
-patient very sleepy this AM
-
-
Date of Service: November 23, 2023
CC / HPI / ROS
-
Chief Complaint:
ESRD
History of Present Illness:
PD 4.25% bags
s/p code 9 with VT 11/17/23
on high flow O2
Review of Systems:
no fever
no CP
more sob today
Weights stable
Labs
-
Labs:
WBC 6.8 10^3/uL (4.8-10.8) 11/23/23 01:30
RBC 3.07 10^6/uL (4.70-6.10) L 11/23/23 01:30
Hgb 9.0 g/dL (13.0-18.0) L 11/23/23 01:30
Hct 26.8 % (39.0-52.0) L 11/23/23 01:30
Plt Count 194 10^3/uL (130-400) 11/23/23 01:30
Sodium 132 mmol/L (135-145) L 11/23/23 01:30
Potassium 3.7 mmol/L (3.5-5.1) 11/23/23 01:30
Chloride 94 mmol/L (98-107) L 11/23/23 01:30
Carbon Dioxide 33 mmol/L (22-30) H 11/23/23 01:30
BUN 50 mg/dl (9-20) H 11/23/23 01:30
Creatinine 7.1 mg/dL (0.7-1.3) H* 11/23/23 01:30
eGFR 8.00 11/23/23 01:30
Glucose 148 mg/dl (70-99) H 11/23/23 01:30
Calcium 7.7 mg/dl (8.4-10.2) L 11/23/23 01:30
Phosphorus 3.4 mg/dl (2.5-4.5) 11/22/23 04:43
Edw-K-Cteczlphszx Pept > 79234 pg/ml 11/21/23 15:52
Albumin 2.7 g/dl (3.5-5.0) L 11/12/23 13:11
Physical Exam
-
Vital Signs:
Vital Signs
Temp Pulse Resp BP Pulse Ox
98.0 F 72 34 176/91 94
11/23/23 12:02 11/23/23 10:07 11/23/23 10:07 11/23/23 12:21 11/23/23 11:30
Cardiovascular:: Regular rate and rhythm
Respiratory:: Bilateral: CTA
Lung Excursion:: Normal
Abdomen:: Nontender and Soft
Bowel Sounds:: Normal
Extremity Edema:: +2: Bilateral:
Sweeney Catheter: No
--- NOTE | 2023-11-23 13:15 | PTCARENOTE ---
Cathlab procedure has been cancelled. Discussion between all providers on next tests to proceed, patient deemed unsafe for CCL while on high flow.
--- NOTE | 2023-11-23 13:40 | W.PN.CARDCBS ---
Today's Communication / Plan
-
Patient with ongoing very high oxygen requirements and lethargy. Significant A-a gradient noted on blood gas yesterday.
QTc has improved to normal. Given VT and cardiac arrest and EKG changes with marked T wave abnormalities in the setting of his history of significant CAD and PAD with prior CABG, will need eventual right and left heart cath however this is not
urgent. Postcardiac arrest, his troponins have been negative. I have spoken to him and his in detail and other than confusion and missed peritoneal dialysis episodes, they do not report any anginal symptoms prior to this admission. His
echocardiogram did not reveal any significant cardiomyopathy or wall motion abnormality concerning for acute ischemia. Troponin has been indeterminate level and some degree of elevation could be attributed to CPR.
Heart catheterization was deferred on 11/22/2023 given his resp insufficiency and significant oxygen requirement. This continues to be the same case today given he is still on 70-80 L of supplemental oxygen, satting in the low 90s.
The patient has known CAD status post CABG in 1995.� Continue aspirin, statin and midodrine for blood pressure support.
No immediate plans for heart catheterization until his respiratory status is optimized and O2 requirement decreases.
Discussed in multidisciplinary fashion with hospitalist, nephrology and intensive care medicine. Currently based on his high O2 requirements, I do not think invasive procedures and sedation are safe and my worry would be patient would decompensate
further from a respiratory standpoint mechanical ventilation.
Continue ultrafiltration with peritoneal dialysis as discussed with nephrology with close monitoring of daily upright weights and ins and outs..� Nephrology evaluating about eventual transition to HD.
Given significant A-a gradient, unsure if a chest CT may be useful though patient has been on anticoagulation since last week. No objective signs of infection.
Appreciate multidisciplinary input in this complex, sick patient with significant comorbid conditions.
No acute plans for heart catheterization until oxygen requirement improves.
CCT: 47mins
Impression / Plan
-
PCP: Dr. Susan Starkey
Cardiology: Unknown
Nephrology: [facility]
Vascular surgery: Dr. Sweeney
Impression:
Respiratory failure, multifactorial on Hiflo
In-hospital cardiac arrest 11/17/23
VT arrest
s/p shock x1 and Epi x1 11/17/23
Prolonged QT
Admitted with TME, uremia and anasarca 11/12/23
ESRD on PD
failing at home PD due to cognitive dysfunction
Elevated Troponin
CAD s/p CABG outside hospital 1995
Acute HFpEF
Anasarca
PAD
fem pop bypass 2015
right CEA at [facility] 03/2019
left CEA at [facility] 07/2019
right [facility] [employer] 2020
Chronic warfarin OAC for PAD
DM 2
Echo 11/15/23: EF 55-60%, trace MR
Echo 11/17/23: LVEF 50% with mild LVH. No significant valve disease.
Plan:
HPI: Patient came to [facility] on 11/12/23 with increasing SOB after he had trouble keeping up with his home PD treatments and he was admitted with acute HF and volume overload, cardiology is now consulted after a VT arrest today. Patient was admitted
11/12/23 with anasarca, SOB and failing PD at home. Patient lives in [place] and follows with a wet process operator at [facility], but came to for care. Patient and also noted increasing somnolence and some confusion which overall seemed to be
contributing to trouble with maintaining PD treatments at home resulting in weight gain and SOB. Weight was up at least 10 lbs on admission. Patient was admitted and seen by nephrology at , PD was restarted in the hospital. Patient had an echo
11/15/23 that showed a preserved EF. There is a h/o CABG at an outside hospital in 1995, primary heading pinner unknown and patient has never seen cardiology at before. Patient with hyperkalemia on admission that resolved with PD. QT was prolonged to
486 ms on ECG on admission 11/12/23 in the setting of RBBB, then 522 ms 11/16/23, then 543 ms this afternoon at 1330. Patient with a run of VT and confusion noted by nursing around 1330 today and magnesium rider ordered. Last magnesium level was 1.6 on
11/16/23. Patient then had sustained VT and cardiac arrest prompting code 9. Cardiology arrived with rest of the team. Patient undergoing CPR and received Epi x1 and shocked x1 with ROSC. Patient intubated by anesthesia team.
Patient with ongoing very high oxygen requirements and lethargy. Significant A-a gradient noted on blood gas yesterday.
QTc has improved to normal. Given VT and cardiac arrest and EKG changes with marked T wave abnormalities in the setting of his history of significant CAD and PAD with prior CABG, will need eventual right and left heart cath however this is not
urgent. Postcardiac arrest, his troponins have been negative. I have spoken to him and his in detail and other than confusion and missed peritoneal dialysis episodes, they do not report any anginal symptoms prior to this admission. His
echocardiogram did not reveal any significant cardiomyopathy or wall motion abnormality concerning for acute ischemia. Troponin has been indeterminate level and some degree of elevation could be attributed to CPR.
Heart catheterization was deferred on 11/22/2023 given his resp insufficiency and significant oxygen requirement. This continues to be the same case today given he is still on 70-80 L of supplemental oxygen, satting in the low 90s.
The patient has known CAD status post CABG in 1995.� Continue aspirin, statin and midodrine for blood pressure support.
No immediate plans for heart catheterization until his respiratory status is optimized and O2 requirement decreases.
Discussed in multidisciplinary fashion with hospitalist, nephrology and intensive care medicine. Currently based on his high O2 requirements, I do not think invasive procedures and sedation are safe and my worry would be patient would decompensate
further from a respiratory standpoint mechanical ventilation.
Continue ultrafiltration with peritoneal dialysis as discussed with nephrology with close monitoring of daily upright weights and ins and outs..� Nephrology evaluating about eventual transition to HD.
Given significant A-a gradient, unsure if a chest CT may be useful though patient has been on anticoagulation since last week. No objective signs of infection.
Appreciate multidisciplinary input in this complex, sick patient with significant comorbid conditions.
No acute plans for heart catheterization until oxygen requirement improves.
CCT: 47mins
Progress Note - Building Inspection Engineer
Subjective
Date of Service: November 23, 2023
Objective
Labs:
11/23/23 01:30
11/23/23 01:30
Labs
Hgb 9.0 g/dL (13.0-18.0) L 11/23/23 01:30
Hct 26.8 % (39.0-52.0) L 11/23/23 01:30
Plt Count 194 10^3/uL (130-400) 11/23/23 01:30
PT 14.5 Sec (11.4-14.6) 11/23/23 05:52
INR 1.11 11/23/23 05:52
APTT 67.6 Sec (23.4-35.0) H 11/23/23 05:52
Sodium 132 mmol/L (135-145) L 11/23/23 01:30
Potassium 3.7 mmol/L (3.5-5.1) 11/23/23 01:30
BUN 50 mg/dl (9-20) H 11/23/23 01:30
Creatinine 7.1 mg/dL (0.7-1.3) H* 11/23/23 01:30
Glucose 148 mg/dl (70-99) H 11/23/23 01:30
Vital Signs and I&O:
Vital Signs
Temp Pulse Resp BP Pulse Ox
98.0 F 72 34 176/91 94
11/23/23 12:02 11/23/23 10:07 11/23/23 10:07 11/23/23 12:21 11/23/23 11:30
Vital Signs
Temp Pulse Resp BP Pulse Ox
98.0 F 72 34 176/91 94
11/23/23 12:02 11/23/23 10:07 11/23/23 10:07 11/23/23 12:21 11/23/23 11:30
Intake & Output
11/21/23 11/22/23 11/23/2311/24/24
06:59 06:59 06:59 06:59
Intake Total 230.9 / 238.9 825 / 834 63 / 63
Output Total 1250 / 1250 750 / 750 700 / 700 150 / 150
Balance -1250 / -1250 -519.1 / -511.1 125 / 134 -87 / -87
--- NOTE | 2023-11-23 13:50 | W.PN.UPDATE ---
Update Note
Progress Note Update
Cardiac catheterization has been postponed due to hypoxia. Risk of intubation.
Still suspecting volume overload despite negative fluid balance.
I will obtain CT of the chest PE protocol to evaluate lung parenchyma and rule out thromboembolic event. Thromboembolic event less likely as the patient has been on anticoagulation.
Incentive spirometry will be ordered
Physical therapy/Occupational Therapy, moving out of bed will be ordered.
Will continue with high flow oxygen for now.
Continue with peritoneal dialysis with a negative fluid balance.
Case has been discussed with nephrology and cardiology.
[2023-11-23 13:51] LABS: APTT 105.4 Sec (23.4-35.0)
--- NOTE | 2023-11-23 15:02 | PTCARENOTE ---
Returned from CT scan. Took patient on high flow with PCT and respiratory therapist.
[2023-11-23 15:34] LABS: COVID-19 Antigen Negative (Negative)
--- NOTE | 2023-11-23 16:57 | W.PN.UPDATE ---
Update Note
Progress Note Update
CT chest reviewed, no evidence for pulmonary embolism. There is bilateral diffuse groundglass opacity throughout both lungs which are new compared to prior.
Differential diagnosis includes: Pulmonary edema, inflammatory pneumonitis, infection.
So far no evidence for infection, no leukocytosis, there is no fevers. Patient appears nontoxic.
Cannot rule out aspiration with subsequent acute lung injury. His decompensation was somewhat acute.
In discussion with cardiology and nephrology: Since weight is trending lower, patient has been removing fluid via peritoneal dialysis, would have expected improvement on bilateral infiltrates.
At this point given above, start IV corticosteroids for possible acute lung injury/inflammatory pneumonitis.
Will need to monitor closely.
Patient not a candidate for bronchoscopy and BAL due to high flow oxygen.
Will repeat proBNP tomorrow. Continue peritoneal dialysis. If there is no improvement with above then we will need to rediscussed right heart catheterization.
--- NOTE | 2023-11-23 17:00 | PTCARENOTE ---
Offered to help patient order dinner, patient did not want any food, he has been tachypneic, drowsy, remains confused at times. Spoke with Dr. Arzate, physician reviewed CT scan. Ordered IV steroids.
[2023-11-23 17:46] LABS: Glucose - Point of Care 137 mg/dl (70-99)
[2023-11-23] MEDS: DECADRON 4 MG IV (17:57)
--- NOTE | 2023-11-23 20:00 | PTCARENOTE ---
Assume care from AM RN. Assessment charted. AAOx2, drowsy, forgetful and anxious at times. Arousable to voice. Gen weakness. Pt is SA w/ PAC's, PVC atrial tachycardia. +1 anasarca. Lung sounds are diminished, fine crackles at the bases,
nonproductive cough, tachypneic. Remains on HF 70% 50L, SaO2 93-95%. Round obese abd. Oliguric. Continues to get Heparin gtt. Q2 turn as tolerated. PD tx w/ dextrose 4.25, Q4 swelling is being done. Call lin within reach and will continue w/ tx.
[2023-11-23 20:07] LABS: APTT 127.3 Sec (23.4-35.0)
[2023-11-23] MEDS: LIPITOR 40 MG PO (21:48)
[2023-11-23] MEDS: NOVOLOG FLEXPEN-MODERATE RESISTANCE 7 UNITS SC (23:07)
[2023-11-23 23:18] LABS: Glucose - Point of Care 331 mg/dl (70-99)
[2023-11-24] VITALS (29 sets, daily range): BP systolic 113–165; BP diastolic 51–123; PULSE 67–68; O2SAT 99; BMI 29.0
--- NOTE | 2023-11-24 | PTCARENOTE ---
No major changes. Pt give PRN hydrazide fro SBP > 180. No changes on heparin dosage. Pt appears comfortable. Pt given Dilaudid 0.25 for pain.
[2023-11-24] MEDS: TYLENOL PO ×3 (01:46→10:05)
[2023-11-24] MEDS: DECADRON 4 MG IV ×3 (01:47→17:01)
[2023-11-24 02:33] LABS: APTT 116.6 Sec (23.4-35.0)
--- NOTE | 2023-11-24 04:00 | PTCARENOTE ---
No changes fomr previous assessment. Continue w/ treatment.
[2023-11-24] MEDS: ANESTHETIC LOZENGE 1 LOZENGE PO (04:55)
[2023-11-24] MEDS: DILAUDID 0.25 MG IV (04:55)
[2023-11-24 05:07] LABS: % Basophils 0.2 % (0-2); % Eosinophils 0.4 % (0-6); % Immature Granulocytes 0.4 % (0-0.5); % Lymphocytes 5.5 % (20.5-51.1); % Monocytes 2.4 % (1.7-9.3); % Neutrophils 91.1 % (42.2-75.2); Absolute Lymphocytes 0.3 10^3/uL (1.2-3.4); Absolute Monocytes 0.1 10^3/uL (0.1-0.6); Absolute Neutrophils 4.5 10^3/uL (1.4-6.5); Hematocrit 28.2 % (39.0-52.0); Hemoglobin 9.2 g/dL (13.0-18.0); Mean Corp Hgb Conc. 32.6 g/dL (33.0-37.0); Mean Corpuscular Hgb 29.3 pg (27.0-31.0); Mean Corpuscular Volume 89.8 fL (80.0-94.0); Nucleated Red Blood Cells % 0 % (-); Platelet Count 187 10^3/uL (130-400); Red Blood Cell Count 3.14 10^6/uL (4.70-6.10); Red Cell Dist. Width 15.7 % (11.5-14.5)
[2023-11-24 05:14] LABS: Glucose - Point of Care 460 mg/dl (70-99)
[2023-11-24 05:38] LABS: NT-proBNP > 27000 pg/ml; Troponin I 0.055 ng/ml
[2023-11-24 05:48] LABS: Procalcitonin 1.36 ng/ml (0.0-0.25)
[2023-11-24 05:54] LABS: Blood Urea Nitrogen 50 mg/dl (9-20); Calcium 7.9 mg/dl (8.4-10.2); Carbon Dioxide 28 mmol/L (22-30); Chloride 93 mmol/L (98-107); Estimated Creatinine Clearance 10 ml/min; Glucose 407 mg/dl (70-99); Potassium 4.2 mmol/L (3.5-5.1); Sodium 130 mmol/L (135-145)
--- NOTE | 2023-11-24 05:57 | PTCARENOTE ---
Glucose level was HI in the glucometer. Venous blood work results was 405. Will tx based on MAR insulin sliding scale and will recheck 2 hr post.
[2023-11-24] MEDS: NOVOLOG FLEXPEN-MODERATE RESISTANCE 11 UNITS SC (06:03)
[2023-11-24] MEDS: NOVOLOG FLEXPEN 8 UNITS SC (06:04)
[2023-11-24] MEDS: LANTUS 0.149999999999999994 UNITS SC (06:04)
--- NOTE | 2023-11-24 07:15 | PTCARENOTE ---
received patient from maintenance supervisor 2nd shift. Patient is due for PD drain. Patient is awake alert, oriented x3, still forgetful at times. Called [facility] but was able to correct. Patient remains on high flow nasal cannula, saturations
in mid 90s. lungs course throughout, states his nose is congested, will administer saline spray. Remains in sinus arrhythmia, irregular HR at times. Heparin gtt infusing at 700units/hr into left midline. Patient's POC glucose was noted to be
over 400, patient is receiving steroids and got lower dose of Lantus yesterday due to NPO status for cancelled cath. spoke with compensation adjuster who will review patient chart and order insulin gtt/glycemic protocol. Will order diet and patient is anuric.
Otherwise will review patient's orders. Patient is able to make needs known but medsitter remains for added safety. Patient has been appropriate this morning. Call lin within reach
[2023-11-24] MEDS: LOPRESSOR 25 MG PO ×2 (07:43→20:38)
[2023-11-24] MEDS: MAGNESIUM OXIDE 500 MG PO ×2 (07:43→20:38)
[2023-11-24] MEDS: PROTONIX 40 MG PO (07:43)
[2023-11-24] MEDS: LOW STRENGTH ASPIRIN 81 MG PO (07:43)
[2023-11-24] MEDS: MIRALAX PO (07:43)
[2023-11-24] MEDS: ZETIA 10 MG PO (07:43)
[2023-11-24 08:23] LABS: Glucose - Point of Care 394 mg/dl (70-99)
--- NOTE | 2023-11-24 08:40 | W.PN.NEPH.PH ---
Today's Communication / Plan
-
PD provided
Assessment/Plan
-
Assessment
-ESRD on PD
-volume overload
-CHF
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
-PAD
-HTN
-edema
-CAD/CABG
-DM2
-Hyponatremia
-In-hospital cardiac arrest 11/17/23
-VT arrest
s/p shock x1 and Epi x1 11/17/23
Plan
-PD ordered, back to all 4.25% bags, 2L q4h, wieghts continue to drop
-PD flow sheet reviewed
-plan was for RHC and LHC today but canceled by cardiology
-CT of chest notes new ground glass opacities (steroid initiated by pulmonary)
-there is a possibility that he will need to be converted to HD here depending on volume status and for home dischargeplanning, but will await cath reports
-Hemodynamically stable
-replete K as needed
-follow Mg
-hyponatremia corrected to 135 for glucose of 407
-
-
Date of Service: November 24, 2023
CC / HPI / ROS
-
Chief Complaint:
ESRD
History of Present Illness:
PD 4.25% bags
s/p code 9 with VT 11/17/23
on high flow O2
Review of Systems:
no fever
no CP
more sob today
Weights lower
Labs
-
Labs:
WBC 5.0 10^3/uL (4.8-10.8) 11/24/23 04:51
RBC 3.14 10^6/uL (4.70-6.10) L 11/24/23 04:51
Hgb 9.2 g/dL (13.0-18.0) L 11/24/23 04:51
Hct 28.2 % (39.0-52.0) L 11/24/23 04:51
Plt Count 187 10^3/uL (130-400) 11/24/23 04:51
Sodium 130 mmol/L (135-145) L 11/24/23 04:51
Potassium 4.2 mmol/L (3.5-5.1) 11/24/23 04:51
Chloride 93 mmol/L (98-107) L 11/24/23 04:51
Carbon Dioxide 28 mmol/L (22-30) 11/24/23 04:51
BUN 50 mg/dl (9-20) H 11/24/23 04:51
Creatinine 7.1 mg/dL (0.7-1.3) H* 11/24/23 04:51
eGFR 8.00 11/24/23 04:51
Glucose 407 mg/dl (70-99) H 11/24/23 04:51
Calcium 7.9 mg/dl (8.4-10.2) L 11/24/23 04:51
Phosphorus 3.4 mg/dl (2.5-4.5) 11/22/23 04:43
Kic-J-Sietbrlntkt Pept > 89351 pg/ml 11/24/23 04:51
Albumin 2.7 g/dl (3.5-5.0) L 11/12/23 13:11
Physical Exam
-
Vital Signs:
Vital Signs
Temp Pulse Resp BP Pulse Ox
97 F 71 11 149/70 96
11/24/23 07:28 11/24/23 07:48 11/24/23 07:48 11/24/23 07:48 11/24/23 07:58
Cardiovascular:: Regular rate and rhythm
Respiratory:: Bilateral: Coarse
Lung Excursion:: Normal
Abdomen:: Nontender and Soft
Bowel Sounds:: Normal
Extremity Edema:: None: Bilateral:
Sweeney Catheter: No
--- NOTE | 2023-11-24 09:04 | W.PN.HOSP.TC ---
Today's Communication/Plan
-
Continue oxygen supplementation, IV steroids. Right heart cath today.
Assessment / Plan
Assessment / Plan
Physical exam:
General: Acutely ill.
HEENT: Normocephalic, Atraumatic and Moist Mucous Membranes
Respiratory: Currently on BiPAP. Increased work of breathing. Bilateral Crackles in the bases. No wheezes. No rhonchi
Cardiac: Regular Rhythm and tachycardic, and S1/S2
GI: Soft, Nontender and Nondistended
Musculoskeletal: No Clubbing, No Cyanosis. Presence of edema
Neuro: Alert oriented, generalized weakness
Psych: Calm.
A/P:
# Acute hypoxic respiratory failure
-Cont HFO
-Nephrology aggressively removing as much fluid as possible through PD
-Cardiology taking him for right heart catheter today
-CT scan with bilateral interstitial changes--> started on IV steroids.
- Today-->Troponin 0.055, BNP 27,000, CRP 213, Procal 1.36.
-Discussed with RN, brush clearer surveying, block mason, pulmonary/lathing supervisor on 11/24.
-Monitor respiratory status closely
-Patient at very high risk of respiratory deterioration or compromise
-Beta-blockers for episodes of atrial tachycardia (no ventricular arrhythmias).
-He has been started on midodrine for blood pressure support as well.
-Keep heparin drip for ACS protocol and subtherapeutic INR
-Keep K>4 (with some leniency due to ESRD) and Mg>2
#Cardiorespiratory arrest
-ROSC on 11/17
-Cardiology planning cardiac catheterization on Wednesday-absolutely agree with ischemic workup as planned by cardiology.
-On aspirin, beta-blockers increased metoprolol 25 mg twice a day, on statin atorvastatin 40 mg p.o. nightly. On heparin gtt
-Continue oxygen supplementation and wean as able
-Peritoneal dialysis per nephrology
-Latest EKG if QTc is 450 which is an improvement from prior EKGs(>500's).
Prior to today:
-Code called. V. tach-->TDP-->V Fib-->PEA. CPR abt 3 min and Epinephrine x3. V Fib s/p shock 360J x1--> ROSC achieved.
-IV magnesium ordered earlier but not given yet and was given during the code.
-Twelve-lead EKG with prolonged QTc
-I participated in the code along with the rest of the team.
-Discussed with cardiology team at bedside
-Updated over the phone--> understanding of critical situation, and will also like to continue full medical efforts at this point in time.
-Hydrochloric Manufacturing Supervisor consulted
-Avoid QTc prolonging medications at all cost.
-Might need cardiac catheterization but will defer to cardiology
-Transthoracic echocardiogram--> EF 50%, mild concentric left ventricular hypertrophy, no significant changes from prior echo.
#Chest pain
-Today chest pain on 11/20 appears atypical probably related to CPR. Nonetheless, given history of CAD and unknown current CAD status, will add nitro as needed.
-Also obtained twelve-lead EKG and pretty much unremarkable from prior EKGs. Did not obtain cardiac enzymes given his end-stage renal disease and plan for cardiac cath on Wednesday.
-Tylenol as needed.
-On aspirin, beta-blockers increased metoprolol 25 mg twice a day, on statin atorvastatin 40 mg p.o. nightly.
-Continue to monitor
#Acute hypoxic respiratory failure from prior
-Patient extubated yesterday on 11/18
-Continue supplemental oxygen
Prior to today:
-In the morning he was on 6 L of oxygen
-Obtained chest x-ray today on 11/17
-Start empirically on IV Zosyn and vancomycin obtain blood cultures prior.
-Patient deteriorated and went into cardiac arrest and now on mechanical ventilation
-Intubated by anesthesia during code.
-Pulmonary lathing supervisor consulted
-Nephrology feels peritoneal dialysis enough at this point.
# Ruled out sepsis/septic shock
-Antibiotics discontinued
-Off pressors
#Hypokalemia
Replete and trend
#Hypomagnesemia
-Magnesium 2.5 today
-On magnesium oxide 500 mg twice a day
-Will continue to monitor in light of recent cardiorespiratory event
# Toxic metabolic encephalopathy
-Multifactorial in nature with uremia concerns and now possible sepsis contributing and hypoxia at this point
-Head CT with impression of no acute intracranial abnormality noted.Increased soft tissue attenuation in the 0deep subcutaneous tissues adjacent to the outer table of the posterior midline/left paramidline parietal region, raising the possibility of
posttraumatic soft tissue swelling/contusion. Clinical correlation recommended.
-UA negative. Blood cultures in lab negative so far. Afebrile.
-continue to monitor mentation
-MRI brain negative for acute stroke or pathology.
-Ativan has been held. Gabapentin is as needed. 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
-About to undergo EEG
-Mentation seems back to baseline.
# End-stage renal disease on peritoneal dialysis
#Anasarca 2/2 above
# Acute hypoxic respiratory insufficiency secondary to above
-Nephrology on consult
-Might need hemodialysis but defer to nephrology
-Calcitrol, calcium acetate
-Volume removal should help.
-Nephro on board.
# Diabetic foot blister wound
-does not look infectious
-afebrile
-ctm
-wound care consulted
# CHF exacerbation
-BNP 52349
-Chest x-ray with impression of Findings suspicious for mild congestive heart failure.
-Strict SOLIS
-Daily weight
-Fluid restriction.
-ECHO noted EF of 55 to 60%. Diastolic function indeterminant.
-nephrology consulted
# Anemia of chronic kidney disease
-Hemoglobin stable
-No active bleeding
-Continue to monitor
#Severe R PVD with claudication
#HX of vascular stenting (RLE x 2, LLE x 2)
-s/p angiopathy, right iliac artery,� balloon angioplasty and also status post OR on 06/13 for lysis� removal, SFA stent and external iliac stent
- continue ASA/Statin/cilostazol
-Gabapentin continued
-Coumadin prior to intubation, on 4 mg. INR 2.78 today
-daily PT/INR. INR latest 1.17
# RLE DVT
-On a/c warfarin for over 2 years. Currently on heparin drip
Essential HTN
- continue Norvasc
- continue bisoprolol dose increased to 10 mg twice daily
- Switch to p.o. hydralazine on discharge
IDDM
-sliding scale, lantus and pre-meal insulin. Basal 30 units and aspart 8 units before meals.
-CHO diet
#HLD
- statin/Zetia
#CAD s/p CABG
- continue ASA/Statin/BB
Depression - Discontinued Zoloft
DVT ppx: coumadin--> continue to hold this plan for cardiac cath and INR subtherapeutic
Code: Full (discussed with patient and about CODE STATUS and he wants to remain full code)
Total time spent on today's encounter was 52 minutes which included time spent in counseling the patient/family regarding diagnosis and treatment plan as listed above, goals of care, and symptom management. Case was discussed with nursing staff,
specialists, and care coordinators/case management. All labs and imaging personally reviewed by me. Remainder the time spent in detailed review of previous records, lab data, imaging, and other medical provider documentation.
Anticipated Discharge: > 48 hours
Subjective/Interval History
-
Date of Service: November 24, 2023
Patient remains on high flow oxygen, 45 L 50%. Patient denies any cp. Afebrile.
Objective Data
-
Labs:
Laboratory Results
11/24/23 11/24/23 11/24/23
02:12 04:51 08:55
WBC 5.0
Hgb 9.2 L
Hct 28.2 L
Plt Count 187
APTT 116.6 H Pending
Sodium 130 L
Potassium 4.2
Chloride 93 L
Carbon Dioxide 28
BUN 50 H
Creatinine 7.1 H*
Glucose 407 H
Calcium 7.9 L
Vital Signs:
Vital Signs
Temp Pulse Resp BP Pulse Ox
97 F 71 11 149/70 96
11/24/23 07:28 11/24/23 07:48 11/24/23 07:48 11/24/23 07:48 11/24/23 07:58
I&O
11/23/23 11/24/23 11/25/23
06:59 06:59 06:59
Intake Total 825 / 834 283 / 733 457 / 457
Output Total 700 / 700 700 / 700 250 / 250
Balance 125 / 134 -417 / 33 207 / 207
[2023-11-24] MEDS: NOVOLIN R 8 UNITS IV (09:34)
[2023-11-24] MEDS: NOVOLIN R INSULIN INFUSION 100 IV (09:35)
[2023-11-24 09:39] LABS: Glucose - Point of Care 393 mg/dl (70-99)
--- NOTE | 2023-11-24 10:00 | PTCARENOTE ---
Started insulin gtt as ordered. Also ordered breakfast and will give Novolog per glycemic protocol and column.
[2023-11-24] MEDS: OCEAN, SALINE MIST 2 SPRAYS NASAL (10:06)
[2023-11-24] MEDS: APRESOLINE 10 MG IV (10:11)
[2023-11-24] MEDS: HEPARIN 25000 UNITS/250 ML IV (10:15)
[2023-11-24 10:21] LABS: APTT 112.5 Sec (23.4-35.0)
[2023-11-24] MEDS: NOVOLOG FLEXPEN 2 UNITS SC (10:29)
--- NOTE | 2023-11-24 10:43 | W.PN.INTV ---
Today's Communication / Plan
Recommendations
Continue steroids IV for now.
Wean down FiO2.
Continue peritoneal dialysis with negative fluid balance
Continue to hold antibiotics
Insulin drip
Assessment
-
Assessment:
Mr Blair Thakkar is a 63/M adm 11-12 with confusion and EV edema. Known h/o CKD on PD, recently not able to do PD himself due to confusion, did. At ER, confused, hypoxemic. Seen by Neurology, no acute findings on CT and MRI brain. Seen by
Renal, resumed PD soon after adm. VTach episode on night 11-16, received IV Mag with resolution. VTach returned on early afternoon 11-17, started Mag IV infusion, MS continued deteriorating, became unresponsive, VTach deteriorated to TDP, then
VFib, shock at 360K x1, developed PEA, received 3 doses epinephrine, total CPR time about 3 min with ROSC, intubated by anesthesia with no reported difficulty
Impression:
Acute hypoxemic respiratory failure: Bilateral infiltrates
Differential diagnosis includes pulmonary edema/inflammatory pneumonitis/less likely infectious
Cardiac arrest 11-17-23
VTach, TDP, VFib, PEA
Low normal serum Mg on 11-16 and given IV Mag on 11-16 and also 11-17 (Mg was running at time of arrest)
Conditions HYDRAULIC RIVETER:
CKD on PD
CAD s/p CABG
PVD s/p bilateral EV stenting
Emergent stenting RLE Jun 2021 ()
DM
HTN
HLD
Depression
Obesity

Plan:
11/21/2023: Transferred back to the ICU with increased work of breathing necessitating noninvasive mechanical ventilation. Acute onset.
Chest x-ray at that time with mild pulmonary edema bilaterally.
CT chest 11/23/2023: Extensive bilateral groundglass opacities with subsegmental bibasilar atelectasis. No pulmonary embolism.
ABG with respiratory alkalosis.
-
Clinically improved. Has not required Noninvasive mechanical ventilation since 11/22/2023.
Discontinue noninvasive mechanical ventilation.
Recent for decompensation perhaps multifactorial including volume overload, cannot rule out aspiration with subsequent acute lung injury. Cannot rule out undifferentiated inflammatory pneumonitis: Patient has never been on amiodarone.
At this point no evidence for infection. -Continue to hold antibiotics for now.
-
Oxygenation overall improved. Down to 45% FiO2. Continue to wean down as able. Pulse ox 97% on my exam
He is more comfortable, cooperative.Able to speak in full sentences.
Increase activity as able
Physical therapy/Occupational Therapy
Speech evaluation noted: No overt aspiration. Continue with aspiration precautions.

VTach evening 11-16-no further episodes.
Low normal Mag, replaced IV at time of event
No gross e-lyte abnormalities at time of VTach, TDP, VFib/PEA
Status post cardiac arrest 11-17
Required intubation-CPR, 3 epi doses, shock x1 at 360. CPR for about 3 min till ROSC
Extubated 11/18/2023.
Continue to monitor electrolytes
Continue teletypesetter monitor.
Cardiology continues to follow. Plan for left and right heart catheterization today.
-
In discussion with nephrology on 11/23/2023: Fluid balance has been negative, weight is down. Difficult exam in regards to determine volume overload, proBNP remains significantly elevated.
With above CAT scan, differential diagnosis continues to include volume overload.
Ultimately, right heart catheterization will be needed in my opinion, hopefully can improve enough to perform procedure.
Continue to attempt negative fluid balance via peritoneal dialysis.
Discussed with nephrology.
-
I started him on systemic steroids on 11/23/2023 for possible inflammatory pneumonitis/acute lung injury.
He is hyperglycemic now. Start glycemic control.
Hopefully can start tapering tomorrow.
-
Antibiotics discontinued 11/19/2023. No evidence for infection.
Restarted on cefepime 11/21/2023: in reviewing x-rays no acute infiltrates. No evidence for infection. Discontinued antibiotics.
Blood cxs so far negative
Resp secs cx negative
NE off since 11-18
-
Glycemic control: Hold Lantus for now
Start insulin drip. Hyperglycemia triggered by steroids.
-
On chronic coumadin for h/o PVD s/p stents
Heparin drip. Follow PTT
Monitor for bleeding
-
Critical care statement: A total of 43 minutes of critical care time was provided for this patient today. This includes management of unstable vital signs, evaluation of the patient at bedside, reviewing the patient's pertinent medical records
including ventilator settings, arterial blood gases, radiographs, microbiology, laboratory evaluations and discussion with primary team, critical care nursing, and respiratory therapy.

Diagnostic tests:
CXR -- pm: interim intubation and GT. pulm vasc and parenchymal congestion.
CXR 01-05 and 10- AM, portable, improved pulm vasc and parenchymal congestion, sternotomy
TTE 11-17-23 (post cardiac arrest)
CONCLUSIONS
Limited study
Normal left ventricular chamber size. Mild concentric left ventricular
hypertrophy. Normal left ventricular systolic function. Left ventricular
ejection fraction is 50% by Grimaldo' s method. Diastology not assessed.
Since echocardiogram November 15, 2023 which was reviewed, there is no
significant change.
TTE 11-15-23
CONCLUSIONS
Normal left ventricular chamber size. Normal left ventricular systolic
function. Normal regional wall motion. Mild concentric left ventricular
hypertrophy. Left ventricular ejection fraction is 55-60% by visual estimate.
Diastolic function indeterminate due to atrial fibrillation.
Mildly thickened mitral valve leaflets. Mitral annular calcification. Mitral
valve opens normally. Trace mitral regurgitation.
Subjective Dataa
Subjective Data
Date of Service:
Date of Service: November 24, 2023
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
Subjective:
Patient feels better today.
Denies cough or phlegm production. Denies hemoptysis.
Denies any swallowing problems.
Review of Systems
General: Fever (n)
Cardiopulmonary: Dyspnea (none at rest), Cough (n), Sputum Production (n) and Chest Pain (n)
GI: Abdominal Pain (n), Nausea (n) and Vomiting (n)
Objective Data
Data Reviewed
Vital Signs / I&O / Oxygen:
Vital Signs
Temp Pulse Resp BP Pulse Ox
97 F 71 11 155/52 96
11/24/23 07:28 11/24/23 07:48 11/24/23 07:48 11/24/23 10:11 11/24/23 09:05
Intake and Output
11/23/23 11/24/23 11/25/23
06:59 06:59 06:59
Intake Total 825 / 834 283 / 733 477 / 477
Output Total 700 / 700 700 / 700 250 / 250
Balance 125 / 134 -417 / 33 227 / 227
SaO2 [NIV (Non Invasive 95
Ventilation)]
SaO2 [CPAP/PSV] 95
SaO2 [A/C] 96
SaO2 96
Nasal Cannula flow liters per 45
minute
Physical Exam
General: Respiratory Distress (mild with activity)
HEENT: Normocephalic and Moist Mucous Membranes
Cardiovascular: Regular Rhythm, Murmur (n) and Peripheral Edema (n)
Respiratory: Crackles and Stridor (n)
GI: Soft, Non Distended and Non Tender
Neurology: Awake, Alert and No Motor Deficits
Skin: Dry
Labs/Micro/Reports
Lab Data
11/24/23 04:51
11/24/23 04:51
Laboratory Results
11/23/23 11/23/23 11/24/23
13:25 19:30 02:12
APTT 105.4 H 127.3 H 116.6 H
11/24/23
09:59
APTT 112.5 H
Microbiology
11/21/23 15:52 Blood/Venous Blood Culture - Preliminary
No Growth in 48 hours- Final report to follow
11/18/23 11:50 Blood/Venous Blood Culture - Final
No Growth - Final Report
11/17/23 13:16 Blood/Venous Blood Culture - Final
No Growth - Final Report
11/21/23 15:35 Nasal Swab Influenza Types A & B ([facility]) - Final
Negative for Influenza A & B, NAAT
Negative results must be combined with clinical observations
and patient history.
Nucleic Acid Amplification test (NAAT)performed on the
[employer] platform.
11/21/23 15:35 Nasalpharynx Respiratory Syncytial Virus Culture - Final
Negative for Respiratory Syncytial Virus.
A false negative result may be obtained with a specimen
collected early in the acute phase. If symptoms persist, a
new specimen should be tested.
--- NOTE | 2023-11-24 10:43 | PN.DE.MGMTRT ---
Insulin Management
- -
11/18/2023 Diabetes Management Follow up
Admitted 11/12 for R foot wound, confusion, SOB, swelling. PMH renal failure with peritoneal dialysis, HTN, PVD type 2 diabetes. Prior to admission chart reflects he was taking 60 units Basaglar daily with NovoLog 28 units BID. A1C 8.6%. Patient
had cardiac arrest 11/16 now intubated on mechanical ventilation and insulin infusion. Prior to this patient was receiving Lantus in AM with AC NovoLog at reduced doses.
Will continue glycemic protocol at this time. If patient is weaned off of ventilator will assess for readiness to transition to subcutaneous insulin.
11/19/2023: Diabetes Management F/U:
Pt extubated last evening. Doing well, sitting up in bed, offers no complaints.
Glucose trended up to 197, remains on glycemic protocol requiring 0.8-7 units of insulin/ hr while NPO.
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
Will transition off drip. Give Lantus 30 units NOW, turn drip off 1 hr after.
Start AC NovoLog 8 units and moderate corrective insulin with meals. Start 1800 ADA diet. Accucheks AC/HS
Will follow for further needed insulin adjustments. Plan of care d/w pt and Nurse.
11/22/2023: Diabetes Management F/U:
Pt transferred back to ICU for increased O2 requirements.
Currently NPO for R/LHC today. Premeal glucose trended up to 345 requiring 3-7 units of corrective insulin.
Will make no changes to regimen at this time, reassess after procedure and make necessary adjustments to insulin dose
11/23/2023 Diabetes Management Follow Up
Patient glucose controlled on current regimen, trended down to 79 @ HS. Will slightly decrease AM lantus dose to 27 units to start Wednesday, 11/24.
Patient is NPO for procedure, will order one time dose of lantus 15 units now.
11/24/2023 Diabetes Management Follow Up
Cardiac cath cancelled yesterday due to patient hypoxia. Dexamethasone 4 mg BID started last evening, glucose up to 460. Insulin administered. Fasting glucose 393. Glycemic protocol has been started. Will continue today and reassess in AM/
Diabetes History
- -
Type of Diabetes: 2 requiring insulin
Pre-Admission Diabetes Regimen
11/24/23
04:51
Creatinine 7.1 H*
Lab Results
Hemoglobin A1c 8.6 % (4.0-5.6) H 11/13/23 06:09
Insulin Pump Settings
IP Diabetes Regimen
11/23/23 11/23/23 11/23/23
11:32 17:35 23:06
Glucose
POC Glucose 262 H 137 H 331 H
11/24/23 11/24/23 11/24/23
04:51 05:02 08:12
Glucose 407 H
POC Glucose 460 H* 394 H
11/24/23
09:29
Glucose
POC Glucose 393 H
Patient Education
[2023-11-24 11:17] LABS: Glucose - Point of Care 277 mg/dl (70-99)
--- NOTE | 2023-11-24 12:15 | W.PN.CARDCBS ---
Today's Communication / Plan
-
Patient still with ongoing very high oxygen requirements and lethargy.
Repeat ECG yesterday with diffuse ST-T wave changes, cannot rule out inferolateral ischemia. QTc prolonged in the setting of a right bundle branch block.
Heart catheterization was deferred on 11/22/2023 and 11/23/23 given his resp insufficiency and significant oxygen requirement. Oxygen requirement very mildly improved, still needing 50 L of oxygen at 60% FiO2 on November 24, 2023
The patient has known CAD status post CABG in 1995.� Continue aspirin, and statin.
Discussed in multidisciplinary fashion with hospitalist, nephrology and intensive care medicine. Patient was started on systemic steroids given chest CT findings concerning for possible interstitial pneumonitis from unclear etiology, cannot rule
out pulmonary vascular congestion and pulmonary edema. However despite ongoing ultrafiltration via PD, patient still with very high oxygen requirements.
Discussed with patient at length and he is now finally agreeable to proceeding with right heart catheterization under local anesthesia given I have concerns for IV sedation in the setting of such high oxygen requirements.
Continue ultrafiltration with peritoneal dialysis as discussed with nephrology with close monitoring of daily upright weights and ins and outs.� Nephrology evaluating about eventual transition to HD.
Given VT and cardiac arrest and EKG changes with S-T wave abnormalities in the setting of his history of significant CAD and PAD with prior CABG, will need eventual left heart cath/coronary angiogram, however not yet optimized for this..
Postcardiac arrest, his troponins have been flat, possibly even could be attributed to cardiac arrest and CPR. I have spoken to him and his in detail and other than confusion and missed peritoneal dialysis episodes, they do not report any
anginal symptoms prior to this admission. His echocardiogram did not reveal any significant cardiomyopathy or wall motion abnormality concerning for acute ischemia.
Appreciate multidisciplinary input in this complex, sick patient with significant comorbid conditions.
Stefanie Myers MD, FACC, [facility]
CCT: 42mins
Impression / Plan
-
PCP: Dr. Susan Starkey
Cardiology: Unknown
Nephrology: [facility]
Vascular surgery: Dr. Sweeney
Impression:
Respiratory failure, multifactorial on Hiflo
In-hospital cardiac arrest 11/17/23
VT arrest
s/p shock x1 and Epi x1 11/17/23
Prolonged QT
Admitted with TME, uremia and anasarca 11/12/23
ESRD on PD
failing at home PD due to cognitive dysfunction
Elevated Troponin
CAD s/p CABG outside hospital 1995
Acute HFpEF
Anasarca
PAD
fem pop bypass 2015
right CEA at [place] 03/2019
left CEA at [place] 07/2019
right SFA ELECTRICAL TECHNICIAN 2020
Chronic warfarin OAC for PAD
DM 2
Echo 11/15/23: EF 55-60%, trace MR
Echo 11/17/23: LVEF 50% with mild LVH. No significant valve disease.
Cath: June 24, 2012 for atypical chest discomfort via right common femoral artery:
Aortic pressure: 141/64, mean of 95 mmHg. LVEDP of 12. Weight 102kh.
Coronary circulation: Mid LAD: 100% stenosis.
Mid circumflex: 100% stenosis
OM1: 100% stenosis with good blood supply to the distal myocardium from a graft.
Proximal RCA: Discrete 95% stenosis. Mid RCA with 95% stenosis.
Graft to the LAD: The graft was normal size sequential free radial from OCAMPO. Graft angiography showed minimal luminal irregularities.
Graft to the first diagonal: The graft was a OCAMPO, it was normal.
Graft to the first obtuse marginal: The graft was a OCAMPO from first diagonal. Graft angiography showed no evidence of disease.
Graft to the mid RCA: The graft was a FILIPE and it was normal.
Summary of outpatient cardiology records: EKG from June 29, 2023 showing sinus rhythm with right bundle branch block and secondary ST-T wave changes. He was last seen in the office on June 29, 2023 and did not repeat any active cardiac
complaints. They noted a history of proximal three-vessel coronary artery disease which led to coronary artery bypass grafting done in 1995 with a OCAMPO to diagonal 1 and obtuse marginal 3, FILIPE to mid RCA, radial conduit of the OCAMPO to diagonal 1
and sequentially to LAD. Heart catheterization was repeated on June 24, 2012 which showed patent bypass grafts however we do not have a detailed cath report.
-Bilateral carotid artery disease with right carotid endarterectomy on April 04, 2019 and left CEA in July 2019.
-Femoral to popliteal ELECTRICAL TECHNICIAN April 23, 2016, stenting of the right superficial femoral and popliteal arteries with angioplasty of the proximal right superficial femoral artery, angioplasty of the left superficial femoral artery with minimal residual
diffuse disease.
-Left Pharm pop ELECTRICAL TECHNICIAN angioplasty of multifocal superficial femoral artery in September 2012, ELECTRICAL TECHNICIAN of tibioperoneal trunk. Left popliteal artery stent was not placed because of concerns for stent fracture in September 2012.
-Last myocardial perfusion study on May 13, 2023 without evidence of ischemia, LVEF 51%
-Patient has chronic claudication complaints per outpatient notes with limited mobility and has been maintained on chronic anticoagulation with warfarin.
Plan:
HPI: Patient came to [facility] on 11/12/23 with increasing SOB after he had trouble keeping up with his home PD treatments and he was admitted with acute HF and volume overload, cardiology is now consulted after a VT arrest today. Patient was admitted
11/12/23 with anasarca, SOB and failing PD at home. Patient lives in [place] and follows with a co chairman at [facility], but came to for care. Patient and also noted increasing somnolence and some confusion which overall seemed to be
contributing to trouble with maintaining PD treatments at home resulting in weight gain and SOB. Weight was up at least 10 lbs on admission. Patient was admitted and seen by nephrology at , PD was restarted in the hospital. Patient had an echo
11/15/23 that showed a preserved EF. There is a h/o CABG at an outside hospital in 1995, primary small lot operator unknown and patient has never seen cardiology at before. Patient with hyperkalemia on admission that resolved with PD. QT was prolonged to
486 ms on ECG on admission 11/12/23 in the setting of RBBB, then 522 ms 11/16/23, then 543 ms this afternoon at 1330. Patient with a run of VT and confusion noted by nursing around 1330 today and magnesium rider ordered. Last magnesium level was 1.6 on
11/16/23. Patient then had sustained VT and cardiac arrest prompting code 9. Cardiology arrived with rest of the team. Patient undergoing CPR and received Epi x1 and shocked x1 with ROSC. Patient intubated by anesthesia team.
Patient still with ongoing very high oxygen requirements and lethargy.
Repeat ECG yesterday with diffuse ST-T wave changes, cannot rule out inferolateral ischemia. QTc prolonged in the setting of a right bundle branch block.
Heart catheterization was deferred on 11/22/2023 and 11/23/23 given his resp insufficiency and significant oxygen requirement. Oxygen requirement very mildly improved, still needing 50 L of oxygen at 60% FiO2 on November 24, 2023
The patient has known CAD status post CABG in 1995.� Continue aspirin, and statin.
Discussed in multidisciplinary fashion with hospitalist, nephrology and intensive care medicine. Patient was started on systemic steroids given chest CT findings concerning for possible interstitial pneumonitis from unclear etiology, cannot rule
out pulmonary vascular congestion and pulmonary edema. However despite ongoing ultrafiltration via PD, patient still with very high oxygen requirements.
Discussed with patient at length and he is now finally agreeable to proceeding with right heart catheterization under local anesthesia given I have concerns for IV sedation in the setting of such high oxygen requirements.
Continue ultrafiltration with peritoneal dialysis as discussed with nephrology with close monitoring of daily upright weights and ins and outs.� Nephrology evaluating about eventual transition to HD.
Given VT and cardiac arrest and EKG changes with S-T wave abnormalities in the setting of his history of significant CAD and PAD with prior CABG, will need eventual left heart cath/coronary angiogram, however not yet optimized for this..
Postcardiac arrest, his troponins have been flat, possibly even could be attributed to cardiac arrest and CPR. I have spoken to him and his in detail and other than confusion and missed peritoneal dialysis episodes, they do not report any
anginal symptoms prior to this admission. His echocardiogram did not reveal any significant cardiomyopathy or wall motion abnormality concerning for acute ischemia.
Appreciate multidisciplinary input in this complex, sick patient with significant comorbid conditions.
CCT: 42mins
Progress Note - Auto Painter
Subjective
Date of Service: November 24, 2023
Doing a little better from oxygenation standpoint.
Objective
Labs:
11/24/23 04:51
11/24/23 04:51
Labs
Hgb 9.2 g/dL (13.0-18.0) L 11/24/23 04:51
Hct 28.2 % (39.0-52.0) L 11/24/23 04:51
Plt Count 187 10^3/uL (130-400) 11/24/23 04:51
PT 14.5 Sec (11.4-14.6) 11/23/23 05:52
INR 1.11 11/23/23 05:52
APTT 112.5 Sec (23.4-35.0) H 11/24/23 09:59
Sodium 130 mmol/L (135-145) L 11/24/23 04:51
Potassium 4.2 mmol/L (3.5-5.1) 11/24/23 04:51
BUN 50 mg/dl (9-20) H 11/24/23 04:51
Creatinine 7.1 mg/dL (0.7-1.3) H* 11/24/23 04:51
Glucose 407 mg/dl (70-99) H 11/24/23 04:51
Troponins
11/24/23
04:51
Troponin I 0.055 H*
Vital Signs and I&O:
Vital Signs
Temp Pulse Resp BP Pulse Ox
96.5 F L 71 11 155/52 96
11/24/23 11:41 11/24/23 07:48 11/24/23 07:48 11/24/23 10:11 11/24/23 09:05
Vital Signs
Temp Pulse Resp BP Pulse Ox
96.5 F L 71 11 155/52 96
11/24/23 11:41 11/24/23 07:48 11/24/23 07:48 11/24/23 10:11 11/24/23 09:05
Intake & Output
11/22/23 11/23/23 11/24/23 11/25/23
06:59 06:59 06:59 06:59
Intake Total 230.9 / 238.9 825 / 834 283 / 733 487 / 487
Output Total 750 / 750 700 / 700 700 / 700 250 / 250
Balance -519.1 / -511.1 125 / 134 -417 / 33 237 / 237
Physical Exam
Physical Exam
General: Lethargic, on high flow NC
Heart: Regular, Negative S3 positive S1/S2, Negative S4, No murmur
Lungs: CTA b/l, negative wheezes/rales/rhonchi
Abd: Positive BS, NT/ND, neg rebound/rigidity/guarding
Ext: Negative cyanosis/clubbing/edema
Neuro: nonfocal
[2023-11-24 12:21] LABS: Glucose - Point of Care 256 mg/dl (70-99)
--- NOTE | 2023-11-24 12:40 | ITS.CL.CATH ---
Material Control Clerk - Catheterization
Cardiac Catheterization
Procedure Report:
RIGHT HEART CATHETERIZATION
Date of Procedure: November 24, 2023
Referring: Chaz Mario
INDICATION: Ongoing hypoxemia with significant oxygen requirement
Hemodynamics (mmHg):
RA (m) : 8
RV (s/d,m) : 37/3, 8
PA (s/d, m) : 38/15, 24
PCWP (m) : 13
PA saturation: 40.8% on 45L of oxygen, FiO2 60%. Recheck PA saturation still 40.4%
AO saturation: 99% on 45L of oxygen, FiO2 60%
RA saturation: 43.3% on 45L of oxygen, FiO2 60%
Cardiac Output : 3.02 L/min by Magda
Cardiac Index : 1.5 L/min/m-2 by Magda
Systemic vascular resistance: 0 dsc^(-5)--this is an estimate based on noninvasive blood pressure of 118/59, mean arterial pressure of 85
Pulmonary vascular resistance: 4 velez unit
RADIATION SUMMARY: Fluoro Time (min): 1.2, Dose (mGy): 23.1, DAP (Gy.cm2) : 2.4
CONCLUSION:
1. Near normal right and left-sided filling pressures with mildly pulmonary hypertension.
2. Reduced cardiac output in the setting of elevated systemic vascular resistance.
RECOMMENDATIONS:
1. Based on invasive hemodynamics, his hypoxemia and significant oxygen requirement appears to be due to underlying interstitial pulmonary process of unclear etiology. Defer to pulmonary medicine expertise in regards to further workup/management.
2. Continue dialysis to maintain euvolemia.
3. In the setting of recent cardiac arrest due to sustained polymorphic VT and extensive cardiovascular disease history, at some point a left heart catheterization and coronary angiogram is warranted, however, it is not the acute issue at hand and
the risk of performing this procedure currently outweighs the benefits in the setting of high O2 requirements.
Discussed all of the above with patient, primary hospitalist team (Dr. Rex Yanez), nephrology (Dr. Yaya Collazo) and pulmonary medicine/critical care (Dr. Chaz Mario) along with my senior interventional partner, Dr. Young Pickering.
Stefanie Myers MD, [facility], [facility]
--- NOTE | 2023-11-24 12:50 | PTCARENOTE ---
Patient sent to Cook Vacuum Kettle on monitor. handoff given at bedside. PD dwell started at 1250. Patient will be able to consent for himself, will check in with cathlab by 1400 if patient not back for glycemic protocol.
[2023-11-24 13:12] LABS: Glucose - Point of Care 248 mg/dl (70-99)
[2023-11-24 14:06] LABS: Glucose - Point of Care 196 mg/dl (70-99)
--- NOTE | 2023-11-24 14:30 | CM ---
CM following re: discharge planning.
Discussed in Rounds,reviewed pt's chart, met with pt. Per Rounds meeting, pt requires 45 L HFNC of O2 with saturation of 98%, to laborer pipeline today, receiving PD, continue supportive care. Nephrology, Cardiology following.
Pt has been receiving PD at home managed by [facility]. Per Teacher Associate it is a possibility that pt might be converted to HD treatment.
PT and OT will re-evaluate the pt to determine a level of care at discharge.
D/C plan: TBD and will depend on pt's progress. SNF level of care if pt will be switched to HD.
CM will follow with discharge plan updates as hospitalization progresses
--- NOTE | 2023-11-24 14:44 | PTCARENOTE ---
Received patient from oven laborer. PAtient is anxious, awake, Heparin gtt is ordered to hold until 1800 then resume at prior rate. Right brachial vein site clean dry and intact, manual pressure was held. PAtient asked for anxiety medication, will
ask physician.
[2023-11-24] MEDS: ROXICODONE 10 MG PO (14:58)
[2023-11-24 15:04] LABS: Glucose - Point of Care 160 mg/dl (70-99)
[2023-11-24 16:12] LABS: Glucose - Point of Care 84 mg/dl (70-99)
[2023-11-24] MEDS: XANAX 0.5 MG PO (16:39)
[2023-11-24 17:20] LABS: Glucose - Point of Care 97 mg/dl (70-99)
[2023-11-24] MEDS: NOVOLOG FLEXPEN 4 UNITS SC (18:22)
[2023-11-24 18:37] LABS: Glucose - Point of Care 99 mg/dl (70-99)
--- NOTE | 2023-11-24 20:00 | PTCARENOTE ---
Received report from ruma RN, assumed care of patient at 1900. Nursing assessment completed and as documented. Ox2 not to place, patient stated in '[place]', drowsy but arouses to verbal stimuli, [place]/FSC but with generalized weakness. On
HFNC 45L 60%, sats 90-93%, +TRISTAN and orthopnea, shallow respirations with coarse/crackles at bases otherwise diminished lung sounds throughout. Sinus arrhythmia on monitor with PAC's, atrial tachycardia and prolong QT intervals, TR anasarca, weak but
+PP, cap refills <2 seconds but nail beds dusky in color. Patient oliguric on PD Q4hr, see worklist for documentation, PD catheter site to [facility] CDI. Continent of bowel, loose/liquid BM on bedpan, round/obese abdomen. Hygiene care provided, patient
cleansed with CHG wipes and complete bed change. Heparin infusing at 6ml/hr via LUE Midline, next PTT due at 11/25 0000, see worklist. Insulin infusing per glycemic protocol via 20g R AC, see worklist for documentation. Vascular checks to RUE as
documented via worklist, R brachial site with 4x4 and tegaderm, CDI. Patient repositioned for comfort, medications given without difficulty, VSS, call lin within reach, care ongoing.
[2023-11-24 20:25] LABS: Glucose - Point of Care 213 mg/dl (70-99)
[2023-11-24] MEDS: LIPITOR 40 MG PO (20:38)
[2023-11-24 21:15] LABS: Glucose - Point of Care 200 mg/dl (70-99)
[2023-11-24 22:26] LABS: Glucose - Point of Care 102 mg/dl (70-99)
[2023-11-25] VITALS (22 sets, daily range): BP systolic 96–139; BP diastolic 28–99; BMI 28.5; BMI 28.6
--- NOTE | 2023-11-25 | PTCARENOTE ---
No changes to physical assessment. Patient remains on glycemic protocol, see worklist. Remains on heparin gtt, see worklist. PTT subtherapeutic at 70.3, titrated per protocol. PRN xanax given for anxiety, see MAR. Remains on HFNC 50L 50%, sats
91-92%. Call lin within reach, VSS, care ongoing.
[2023-11-25 00:18] LABS: Glucose - Point of Care 148 mg/dl (70-99)
[2023-11-25] MEDS: XANAX 0.5 MG PO ×2 (00:36→21:15)
[2023-11-25 00:39] LABS: APTT 70.3 Sec (23.4-35.0)
[2023-11-25] MEDS: NOVOLIN R INSULIN INFUSION 100 IV ×2 (00:58→20:46)
[2023-11-25] MEDS: DECADRON 4 MG IV ×3 (02:14→17:27)
[2023-11-25 02:23] LABS: Glucose - Point of Care 91 mg/dl (70-99)
[2023-11-25 04:19] LABS: Glucose - Point of Care 200 mg/dl (70-99)
[2023-11-25 04:48] LABS: % Basophils 0.1 % (0-2); % Eosinophils 0.1 % (0-6); % Immature Granulocytes 0.6 % (0-0.5); % Lymphocytes 3.7 % (20.5-51.1); % Monocytes 1.7 % (1.7-9.3); % Neutrophils 93.8 % (42.2-75.2); Absolute Immature Granulocytes 0.1 10^3/uL (0-0.05); Absolute Lymphocytes 0.4 10^3/uL (1.2-3.4); Absolute Monocytes 0.2 10^3/uL (0.1-0.6); Hematocrit 28.3 % (39.0-52.0); Hemoglobin 9.4 g/dL (13.0-18.0); Mean Corp Hgb Conc. 33.2 g/dL (33.0-37.0); Mean Corpuscular Volume 87.3 fL (80.0-94.0); Mean Platelet Volume 11.8 fL (7.4-10.4); Nucleated Red Blood Cells % 0 % (-); Platelet Count 217 10^3/uL (130-400); Red Blood Cell Count 3.24 10^6/uL (4.70-6.10); Red Cell Dist. Width 15.4 % (11.5-14.5); White Blood Cell Count 11.8 10^3/uL (4.8-10.8)
[2023-11-25 05:24] LABS: Blood Urea Nitrogen 56 mg/dl (9-20); Calcium 8.6 mg/dl (8.4-10.2); Carbon Dioxide 26 mmol/L (22-30); Chloride 92 mmol/L (98-107); Estimated Creatinine Clearance 10 ml/min; Glucose 202 mg/dl (70-99); Magnesium 2.6 mg/dl (1.6-2.3); Sodium 133 mmol/L (135-145); eGFR 7.61
[2023-11-25 05:29] LABS: Glucose - Point of Care 178 mg/dl (70-99)
[2023-11-25 05:31] LABS: Potassium 3.5 mmol/L (3.5-5.1)
[2023-11-25 07:40] LABS: Glucose - Point of Care 131 mg/dl (70-99)
--- NOTE | 2023-11-25 08:26 | W.PN.CARDCBS ---
Today's Communication / Plan
-
Stable cardiac status
Pulmonary infiltrates not cardiogenic based on pulmonary capillary wedge pressure of 13 obtained yesterday
Will need left heart catheterization prior to discharge when oxygenation is improved
Assess thereafter regarding need for ICD implantation
Impression / Plan
-
PCP: Dr. Susan Starkey
Cardiology: Unknown
Nephrology: [facility]
Vascular surgery: Dr. Sweeney
Impression:
Respiratory failure, multifactorial on Hiflo
In-hospital cardiac arrest 11/17/23
VT arrest
s/p shock x1 and Epi x1 11/17/23
Prolonged QT
Admitted with TME, uremia and anasarca 11/12/23
ESRD on PD
failing at home PD due to cognitive dysfunction
Elevated Troponin
CAD s/p CABG outside hospital 1995
Acute HFpEF
Anasarca
PAD
fem pop bypass 2015
right CEA at [place] 03/2019
left CEA at [place] 07/2019
right SFA GANG HEAD SAW OPERATOR 2020
Chronic warfarin OAC for PAD
DM 2
Echo 11/15/23: EF 55-60%, trace MR
Echo 11/17/23: LVEF 50% with mild LVH. No significant valve disease.
Cath: June 24, 2012 for atypical chest discomfort via right common femoral artery:
Aortic pressure: 141/64, mean of 95 mmHg. LVEDP of 12. Weight 102kh.
Coronary circulation: Mid LAD: 100% stenosis.
Mid circumflex: 100% stenosis
OM1: 100% stenosis with good blood supply to the distal myocardium from a graft.
Proximal RCA: Discrete 95% stenosis. Mid RCA with 95% stenosis.
Graft to the LAD: The graft was normal size sequential free radial from OCAMPO. Graft angiography showed minimal luminal irregularities.
Graft to the first diagonal: The graft was a OCAMPO, it was normal.
Graft to the first obtuse marginal: The graft was a OCAMPO from first diagonal. Graft angiography showed no evidence of disease.
Graft to the mid RCA: The graft was a FILIPE and it was normal.
Summary of outpatient cardiology records: EKG from June 29, 2023 showing sinus rhythm with right bundle branch block and secondary ST-T wave changes. He was last seen in the office on June 29, 2023 and did not repeat any active cardiac
complaints. They noted a history of proximal three-vessel coronary artery disease which led to coronary artery bypass grafting done in 1995 with a OCAMPO to diagonal 1 and obtuse marginal 3, FILIPE to mid RCA, radial conduit of the OCAMPO to diagonal 1
and sequentially to LAD. Heart catheterization was repeated on June 24, 2012 which showed patent bypass grafts however we do not have a detailed cath report.
-Bilateral carotid artery disease with right carotid endarterectomy on April 04, 2019 and left CEA in July 2019.
-Femoral to popliteal GANG HEAD SAW OPERATOR April 23, 2016, stenting of the right superficial femoral and popliteal arteries with angioplasty of the proximal right superficial femoral artery, angioplasty of the left superficial femoral artery with minimal residual
diffuse disease.
-Left Pharm pop GANG HEAD SAW OPERATOR angioplasty of multifocal superficial femoral artery in September 2012, GANG HEAD SAW OPERATOR of tibioperoneal trunk. Left popliteal artery stent was not placed because of concerns for stent fracture in September 2012.
-Last myocardial perfusion study on May 13, 2023 without evidence of ischemia, LVEF 51%
-Patient has chronic claudication complaints per outpatient notes with limited mobility and has been maintained on chronic anticoagulation with warfarin.
Right heart cath 1 05/24/24: RA 8, 38/15, wedge 13, cardiac index 1.5
Plan:
From a cardiac standpoint, he seems stable. By right heart catheterization, his wedge is probably close to optimal. His SVR was high and cardiac index is relatively low. Targeting a slightly higher dry weight might be reasonable to improve
cardiac output.
Volume management per renal.
His QT interval is still relatively prolonged.
Major issue at this time is oxygen requirement still requires high flow oxygen to maintain saturations related to pulmonary infiltrates which are not cardiogenic.
Plans underway to transition to hemodialysis given his inability to manage peritoneal dialysis at home.
No new cardiac recommendations at this time.
He will need a left heart catheterization once his pulmonary status improves prior to discharge. After catheterization we can determine if ICD implantation is required.
HPI: Patient came to [facility] on 11/12/23 with increasing SOB after he had trouble keeping up with his home PD treatments and he was admitted with acute HF and volume overload, cardiology is now consulted after a VT arrest today. Patient was admitted
11/12/23 with anasarca, SOB and failing PD at home. Patient lives in [place] and follows with a web content director at [facility], but came to for care. Patient and also noted increasing somnolence and some confusion which overall seemed to be
contributing to trouble with maintaining PD treatments at home resulting in weight gain and SOB. Weight was up at least 10 lbs on admission. Patient was admitted and seen by nephrology at , PD was restarted in the hospital. Patient had an echo
11/15/23 that showed a preserved EF. There is a h/o CABG at an outside hospital in 1995, primary continuous drier helper unknown and patient has never seen cardiology at before. Patient with hyperkalemia on admission that resolved with PD. QT was prolonged to
486 ms on ECG on admission 11/12/23 in the setting of RBBB, then 522 ms 11/16/23, then 543 ms this afternoon at 1330. Patient with a run of VT and confusion noted by nursing around 1330 today and magnesium rider ordered. Last magnesium level was 1.6 on
11/16/23. Patient then had sustained VT and cardiac arrest prompting code 9. Cardiology arrived with rest of the team. Patient undergoing CPR and received Epi x1 and shocked x1 with ROSC. Patient intubated by anesthesia team.
CCT: 33 mins
Progress Note - Investment Officer
Subjective
Date of Service: November 25, 2023:
He offers no complaints at this time.
Medications: IV heparin, insulin infusion, aspirin 81 mg a day, atorvastatin 40 mg a day, Zetia 10 mg a day, magnesium 500 twice daily, metoprolol tartrate 25 mg twice daily, dexamethasone 4 IV every 8 and insulin
Allergies: None
Outpatient medications included amlodipine 5 twice daily bisoprolol 5 mg twice daily cilostazol 100 mg twice daily and potassium 10 mill equivalents daily with warfarin daily, no diuretic listed
PMH/PSH/FH/SH: Reviewed
Review of systems: Negative except as above
100/67, pulse 63, 130/68, afebrile, saturations 91%, weight 85 kg, had been 86.5 kg, weight on admission was 101.5 kg if accurate, 97.7 the following day, still on high flow
Chest CT November 23 groundglass both lungs, ascites
White count 11.8, hemoglobin 9.4 platelets 217, creatinine 7.4, BUN 56, sodium 133
Peak troponin was 0.188, proBNP is greater than 27,000 on the
ECG on the sinus rhythm, long QT, anterolateral T wave inversions right bundle branch block
Echo November 12: EF 55-60%, was in A-fib at time of echo, trace MR,
Objective
Labs:
11/25/23 04:32
11/25/23 04:32
Labs
Hgb 9.4 g/dL (13.0-18.0) L 11/25/23 04:32
Hct 28.3 % (39.0-52.0) L 11/25/23 04:32
Plt Count 217 10^3/uL (130-400) 11/25/23 04:32
PT 14.5 Sec (11.4-14.6) 11/23/23 05:52
INR 1.11 11/23/23 05:52
APTT 70.3 Sec (23.4-35.0) H 11/25/23 00:20
Sodium 133 mmol/L (135-145) L 11/25/23 04:32
Potassium 3.5 mmol/L (3.5-5.1) 11/25/23 04:32
BUN 56 mg/dl (9-20) H 11/25/23 04:32
Creatinine 7.4 mg/dL (0.7-1.3) H* 11/25/23 04:32
Glucose 202 mg/dl (70-99) H 11/25/23 04:32
Troponins
11/24/23
04:51
Troponin I 0.055 H*
Vital Signs and I&O:
Vital Signs
Temp Pulse Resp BP Pulse Ox
36.4 C 63 21 100/67 91
11/25/23 08:03 11/25/23 05:20 11/25/23 05:20 11/25/23 05:20 11/25/23 05:20
Vital Signs
Temp Pulse Resp BP Pulse Ox
36.4 C 63 21 100/67 91
11/25/23 08:03 11/25/23 05:20 11/25/23 05:20 11/25/23 05:20 11/25/23 05:20
Intake & Output
11/23/23 11/24/23 11/25/23 11/26/23
07:59 07:59 07:59 07:59
Intake Total 835 / 835 715 / 722 249.1 / 249.1
Output Total 700 / 700 950 / 950 1100 / 1100
Balance 135 / 135 -235 / -228 -850.9 / -850.9
Physical Exam
Physical Exam
No distress, currently with PD fluid welling, on high flow
Head neck exam: High flow
Lungs surprisingly clear
Regular rate and rhythm without murmurs JVD okay
Abdomen peritoneal dialysis in place
Extremities without edema
Neuro nonfocal
--- NOTE | 2023-11-25 08:45 | W.PN.NEPH.PH ---
Today's Communication / Plan
-
will adjust back PD 2.5% all bags
Assessment/Plan
-
Assessment
-ESRD on PD
-volume overload
-CHF
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
-PAD
-HTN
-edema
-CAD/CABG
-DM2
-Hyponatremia
-In-hospital cardiac arrest 11/17/23
-VT arrest
s/p shock x1 and Epi x1 11/17/23
Plan
-PD ordered, 2.5 bags, 2L q4h, weights continue to drop an RHC notes PCWP of 13
-PD flow sheet reviewed
-CT of chest notes new ground glass opacities (steroid initiated by pulmonary)
-there is a possibility that he will need to be converted to HD here depending on volume status and for home discharge planning
-Hemodynamically stable
-replete K as needed
-
-
Date of Service: November 25, 2023
CC / HPI / ROS
-
Chief Complaint:
ESRD
History of Present Illness:
PD in progress
s/p code 9 with VT 11/17/23
on high flow O2 and remains on IV Decadron
Review of Systems:
no fever
no CP
sob today
Weights lower
Labs
-
Labs:
WBC 11.8 10^3/uL (4.8-10.8) H 11/25/23 04:32
RBC 3.24 10^6/uL (4.70-6.10) L 11/25/23 04:32
Hgb 9.4 g/dL (13.0-18.0) L 11/25/23 04:32
Hct 28.3 % (39.0-52.0) L 11/25/23 04:32
Plt Count 217 10^3/uL (130-400) 11/25/23 04:32
Sodium 133 mmol/L (135-145) L 11/25/23 04:32
Potassium 3.5 mmol/L (3.5-5.1) 11/25/23 04:32
Chloride 92 mmol/L (98-107) L 11/25/23 04:32
Carbon Dioxide 26 mmol/L (22-30) 11/25/23 04:32
BUN 56 mg/dl (9-20) H 11/25/23 04:32
Creatinine 7.4 mg/dL (0.7-1.3) H* 11/25/23 04:32
eGFR 7.61 11/25/23 04:32
Glucose 202 mg/dl (70-99) H 11/25/23 04:32
Calcium 8.6 mg/dl (8.4-10.2) 11/25/23 04:32
Phosphorus 3.4 mg/dl (2.5-4.5) 11/22/23 04:43
Rxq-L-Sbejllasges Pept > 99323 pg/ml 11/24/23 04:51
Albumin 2.7 g/dl (3.5-5.0) L 11/12/23 13:11
Physical Exam
-
Vital Signs:
Vital Signs
Temp Pulse Resp BP Pulse Ox
97.6 F 57 17 113/43 91
11/25/23 08:03 11/25/23 08:00 11/25/23 08:00 11/25/23 08:00 11/25/23 08:37
Cardiovascular:: Regular rate and rhythm
Respiratory:: Bilateral: Coarse
Lung Excursion:: Normal
Abdomen:: Nontender and Soft
Bowel Sounds:: Normal
Extremity Edema:: None: Bilateral:
Sweeney Catheter: No
[2023-11-25 08:46] LABS: APTT 95.5 Sec (23.4-35.0)
--- NOTE | 2023-11-25 08:53 | W.PN.UPDATE ---
Update Note
Progress Note Update
PD note
-change PD dialysate to all 2.5%
-2L q4hr exchanges
--- NOTE | 2023-11-25 08:57 | W.PN.HOSP.TC ---
Today's Communication/Plan
-
Continue IV steroids. Continue oxygen supplementation.
Assessment / Plan
Assessment / Plan
Physical exam:
General: Acutely ill.
HEENT: Normocephalic, Atraumatic and Moist Mucous Membranes
Respiratory: Currently on BiPAP. Increased work of breathing. Bilateral Crackles in the bases. No wheezes. No rhonchi
Cardiac: Regular Rhythm and tachycardic, and S1/S2
GI: Soft, Nontender and Nondistended
Musculoskeletal: No Clubbing, No Cyanosis. Presence of edema
Neuro: Alert oriented, generalized weakness
Psych: Calm.
A/P:
# Acute hypoxic respiratory failure, possible acute lung injury/undifferentiated inflammatory pneumonitis.
-Cont HFO--> titrate as much as possible
-Nephrology aggressively removing as much fluid as possible through PD
-Cardiology took him for right heart catheter yesterday
-CT scan with bilateral interstitial changes--> cont on IV steroids.
- Today-->Troponin 0.055, BNP 27,000, CRP 213, Procal 1.36.
-Discussed with RN, resolution manager, property damage claims adjustor, pulmonary/brush worker on 11/24.
-Monitor respiratory status closely
-Patient at very high risk of respiratory deterioration or compromise
-Beta-blockers for episodes of atrial tachycardia (no ventricular arrhythmias).
-He has been started on midodrine for blood pressure support as well.
-Keep heparin drip for subtherapeutic INR and if not vascular access plan, possibly start Coumadin again
-Keep K>4 (with some leniency due to ESRD) and Mg>2
#Cardiorespiratory arrest
-ROSC on 11/17
-Cardiology planning cardiac catheterization on Wednesday-absolutely agree with ischemic workup as planned by cardiology.
-On aspirin, beta-blockers increased metoprolol 25 mg twice a day, on statin atorvastatin 40 mg p.o. nightly. On heparin gtt
-Continue oxygen supplementation and wean as able
-Peritoneal dialysis per nephrology
-Latest EKG if QTc is 450 which is an improvement from prior EKGs(>500's).
Prior to today:
-Code called. V. tach-->TDP-->V Fib-->PEA. CPR abt 3 min and Epinephrine x3. V Fib s/p shock 360J x1--> ROSC achieved.
-IV magnesium ordered earlier but not given yet and was given during the code.
-Twelve-lead EKG with prolonged QTc
-I participated in the code along with the rest of the team.
-Discussed with cardiology team at bedside
-Updated over the phone--> understanding of critical situation, and will also like to continue full medical efforts at this point in time.
-Chief Dispatcher consulted
-Avoid QTc prolonging medications at all cost.
-Might need cardiac catheterization but will defer to cardiology
-Transthoracic echocardiogram--> EF 50%, mild concentric left ventricular hypertrophy, no significant changes from prior echo.
#Chest pain
-Today chest pain on 11/20 appears atypical probably related to CPR. Nonetheless, given history of CAD and unknown current CAD status, will add nitro as needed.
-Also obtained twelve-lead EKG and pretty much unremarkable from prior EKGs. Did not obtain cardiac enzymes given his end-stage renal disease and plan for cardiac cath on Wednesday.
-Tylenol as needed.
-On aspirin, beta-blockers increased metoprolol 25 mg twice a day, on statin atorvastatin 40 mg p.o. nightly.
-Continue to monitor
#Acute hypoxic respiratory failure from prior
-Patient extubated yesterday on 11/18
-Continue supplemental oxygen
Prior to today:
-In the morning he was on 6 L of oxygen
-Obtained chest x-ray today on 11/17
-Start empirically on IV Zosyn and vancomycin obtain blood cultures prior.
-Patient deteriorated and went into cardiac arrest and now on mechanical ventilation
-Intubated by anesthesia during code.
-Pulmonary brush worker consulted
-Nephrology feels peritoneal dialysis enough at this point.
# Ruled out sepsis/septic shock
-Antibiotics discontinued
-Off pressors
#Hypokalemia
Replete and trend
#Hypomagnesemia
-Magnesium 2.5 today
-On magnesium oxide 500 mg twice a day
-Will continue to monitor in light of recent cardiorespiratory event
# Toxic metabolic encephalopathy
-Multifactorial in nature with uremia concerns and now possible sepsis contributing and hypoxia at this point
-Head CT with impression of no acute intracranial abnormality noted.Increased soft tissue attenuation in the 0deep subcutaneous tissues adjacent to the outer table of the posterior midline/left paramidline parietal region, raising the possibility of
posttraumatic soft tissue swelling/contusion. Clinical correlation recommended.
-UA negative. Blood cultures in lab negative so far. Afebrile.
-continue to monitor mentation
-MRI brain negative for acute stroke or pathology.
-Ativan has been held. Gabapentin is as needed. Not on any EARLY CHILDHOOD ASSOCIATE depressing agents.
-About to undergo EEG
-Mentation seems back to baseline.
# End-stage renal disease on peritoneal dialysis
#Anasarca 2/2 above
# Acute hypoxic respiratory insufficiency secondary to above
-Nephrology on consult
-Might need hemodialysis but defer to nephrology
-Calcitrol, calcium acetate
-Volume removal should help.
-Nephro on board.
# Diabetic foot blister wound
-does not look infectious
-afebrile
-ctm
-wound care consulted
# CHF exacerbation
-BNP 34552
-Chest x-ray with impression of Findings suspicious for mild congestive heart failure.
-Strict SOLIS
-Daily weight
-Fluid restriction.
-ECHO noted EF of 55 to 60%. Diastolic function indeterminant.
-nephrology consulted
# Anemia of chronic kidney disease
-Hemoglobin stable
-No active bleeding
-Continue to monitor
#Severe R PVD with claudication
#HX of vascular stenting (RLE x 2, LLE x 2)
-s/p angiopathy, right iliac artery,� balloon angioplasty and also status post OR on 06/13 for lysis� removal, SFA stent and external iliac stent
- continue ASA/Statin/cilostazol
-Gabapentin continued
-Coumadin prior to intubation, on 4 mg. INR 2.78 today
-daily PT/INR. INR latest 1.17
# RLE DVT
-On a/c warfarin for over 2 years. Currently on heparin drip
Essential HTN
- continue Norvasc
- continue bisoprolol dose increased to 10 mg twice daily
- Switch to p.o. hydralazine on discharge
IDDM
-sliding scale, lantus and pre-meal insulin. Basal 30 units and aspart 8 units before meals.
-CHO diet
#HLD
- statin/Zetia
#CAD s/p CABG
- continue ASA/Statin/BB
Depression - Discontinued Zoloft
DVT ppx: coumadin--> continue to hold this plan for cardiac cath and INR subtherapeutic
Code: Full (discussed with patient and about CODE STATUS and he wants to remain full code)
Total time spent on today's encounter was 52 minutes which included time spent in counseling the patient/family regarding diagnosis and treatment plan as listed above, goals of care, and symptom management. Case was discussed with nursing staff,
specialists, and care coordinators/case management. All labs and imaging personally reviewed by me. Remainder the time spent in detailed review of previous records, lab data, imaging, and other medical provider documentation.
Anticipated Discharge: > 48 hours
Subjective/Interval History
-
Date of Service: November 25, 2023
Patient denies any chest pain. He still on supplemental oxygen, high flow oxygen 50 L 50%
Objective Data
-
Labs:
Laboratory Results
11/25/23 11/25/23 11/25/23
00:20 04:32 08:27
WBC 11.8 H
Hgb 9.4 L
Hct 28.3 L
Plt Count 217
APTT 70.3 H 95.5 H
Sodium 133 L
Potassium 3.5
Chloride 92 L
Carbon Dioxide 26
BUN 56 H
Creatinine 7.4 H*
Glucose 202 H
Calcium 8.6
Vital Signs:
Vital Signs
Temp Pulse Resp BP Pulse Ox
97.6 F 57 17 113/43 91
11/25/23 08:03 11/25/23 08:00 11/25/23 08:00 11/25/23 08:00 11/25/23 08:37
I&O
11/24/23 11/25/23 11/26/23
06:59 06:59 06:59
Intake Total 283 / 733 699.1 / 714.1
Output Total 700 / 700 1300 / 1300 50 / 50
Balance -417 / 33 -600.9 / -585.9 -
[2023-11-25 09:29] LABS: Glucose - Point of Care 109 mg/dl (70-99)
[2023-11-25] MEDS: MAGNESIUM OXIDE 500 MG PO (09:30)
[2023-11-25] MEDS: LOPRESSOR 25 MG PO ×2 (09:30→21:15)
[2023-11-25] MEDS: PROTONIX 40 MG PO (09:30)
[2023-11-25] MEDS: ZETIA 10 MG PO (09:31)
[2023-11-25] MEDS: MIRALAX PO (09:31)
[2023-11-25] MEDS: LOW STRENGTH ASPIRIN 81 MG PO (09:31)
[2023-11-25] MEDS: NOVOLOG FLEXPEN 4 UNITS SC ×3 (09:32→17:23)
[2023-11-25] MEDS: ROXICODONE 5 MG PO (09:39)
[2023-11-25] MEDS: TYLENOL 650 MG PO (09:39)
[2023-11-25 10:14] LABS: INR 1.04; PT 13.8 Sec (11.4-14.6)
--- NOTE | 2023-11-25 10:50 | PN.DE.MGMTRT ---
Insulin Management
- -
11/18/2023 Diabetes Management Follow up
Admitted 11/12 for R foot wound, confusion, SOB, swelling. PMH renal failure with peritoneal dialysis, HTN, PVD type 2 diabetes. Prior to admission chart reflects he was taking 60 units Basaglar daily with NovoLog 28 units BID. A1C 8.6%. Patient
had cardiac arrest 11/16 now intubated on mechanical ventilation and insulin infusion. Prior to this patient was receiving Lantus in AM with AC NovoLog at reduced doses.
Will continue glycemic protocol at this time. If patient is weaned off of ventilator will assess for readiness to transition to subcutaneous insulin.
11/19/2023: Diabetes Management F/U:
Pt extubated last evening. Doing well, sitting up in bed, offers no complaints.
Glucose trended up to 197, remains on glycemic protocol requiring 0.8-7 units of insulin/ hr while NPO.
Pt was taking 60 units Basaglar daily with NovoLog 28 units BID REBRANDER.
Will transition off drip. Give Lantus 30 units NOW, turn drip off 1 hr after.
Start AC NovoLog 8 units and moderate corrective insulin with meals. Start 1800 ADA diet. Accucheks AC/HS
Will follow for further needed insulin adjustments. Plan of care d/w pt and Nurse.
11/22/2023: Diabetes Management F/U:
Pt transferred back to ICU for increased O2 requirements.
Currently NPO for R/LHC today. Premeal glucose trended up to 345 requiring 3-7 units of corrective insulin.
Will make no changes to regimen at this time, reassess after procedure and make necessary adjustments to insulin dose
11/23/2023 Diabetes Management Follow Up
Patient glucose controlled on current regimen, trended down to 79 @ HS. Will slightly decrease AM lantus dose to 27 units to start Wednesday, 11/24.
Patient is NPO for procedure, will order one time dose of lantus 15 units now.
11/24/2023 Diabetes Management Follow Up
Cardiac cath cancelled yesterday due to patient hypoxia. Dexamethasone 4 mg BID started last evening, glucose up to 460. Insulin administered. Fasting glucose 393. Glycemic protocol has been started. Will continue today and reassess in AM/
11/25/2023 Diabetes Management Follow up
Patient remains on steroids, glucose controlled on glycemic protocol requiring .8 to 10 units novolog per hour. He is eating meals and receiving supplemental insulin. Will continue glycemic protocol, assess in AM for readiness to transition to
subq regimen. I spoke with patient nurse.
Diabetes History
- -
Type of Diabetes: 2 requiring insulin
Pre-Admission Diabetes Regimen
11/25/23
04:32
Creatinine 7.4 H*
Lab Results
Hemoglobin A1c 8.6 % (4.0-5.6) H 11/13/23 06:09
Insulin Pump Settings
IP Diabetes Regimen
11/24/23 11/24/23 11/24/23
11:01 12:00 12:50
Glucose
POC Glucose 277 H 256 H 248 H
11/24/23 11/24/23 11/24/23
13:52 14:53 16:01
Glucose
POC Glucose 196 H 160 H 84
11/24/23 11/24/23 11/24/23
16:59 18:20 20:14
Glucose
POC Glucose 97 99 213 H
11/24/23 11/24/23 11/25/23
21:04 22:15 00:07
Glucose
POC Glucose 200 H 102 H 148 H
11/25/23 11/25/23 11/25/23
02:12 04:08 04:32
Glucose 202 H
POC Glucose 91 200 H
11/25/23 11/25/23 11/25/23
05:17 07:29 09:18
Glucose
POC Glucose 178 H 131 H 109 H
Patient Education
--- NOTE | 2023-11-25 11:28 | W.PN.INTV ---
Today's Communication / Plan
Recommendations
Maintain current dose of steroids for 1 additional day
Repeat chest x-ray tomorrow
Continue to observe off antibiotics
Wean down oxygen as able
Incentive spirometer
Continue peritoneal dialysis
Continue insulin drip with hourly Accu-Cheks.
Assessment
-
Assessment:
Mr Blair Thakkar is a 63/M adm 11-12 with confusion and EV edema. Known h/o CKD on PD, recently not able to do PD himself due to confusion, did. At ER, confused, hypoxemic. Seen by Neurology, no acute findings on CT and MRI brain. Seen by
Renal, resumed PD soon after adm. VTach episode on night 11-16, received IV Mag with resolution. VTach returned on early afternoon 11-17, started Mag IV infusion, MS continued deteriorating, became unresponsive, VTach deteriorated to TDP, then
VFib, shock at 360K x1, developed PEA, received 3 doses epinephrine, total CPR time about 3 min with ROSC, intubated by anesthesia with no reported difficulty
Impression:
Acute hypoxemic respiratory failure: Bilateral infiltrates
Differential diagnosis includes pulmonary edema/inflammatory pneumonitis/less likely infectious
Cardiac arrest 11-17-23
VTach, TDP, VFib, PEA
Low normal serum Mg on 11-16 and given IV Mag on 11-16 and also 11-17 (Mg was running at time of arrest)
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
CKD on PD
CAD s/p CABG
PVD s/p bilateral EV stenting
Emergent stenting RLE Jun 2021 ()
DM
HTN
HLD
Depression
Obesity

Plan:
11/21/2023: Transferred back to the ICU with increased work of breathing necessitating noninvasive mechanical ventilation. Acute onset.
Chest x-ray at that time with mild pulmonary edema bilaterally.
CT chest 11/23/2023: Extensive bilateral groundglass opacities with subsegmental bibasilar atelectasis. No pulmonary embolism.
ABG with respiratory alkalosis.
-
Has not required Noninvasive mechanical ventilation since 11/22/2023.
-
Recent for decompensation perhaps:cannot rule out aspiration with subsequent acute lung injury. Cannot rule out undifferentiated inflammatory pneumonitis: Patient has never been on amiodarone.
At this point no evidence for infection. -Continue to hold antibiotics for now.
Right heart catheterization 11/24/2023: Not consistent with volume overload.
-
Oxygenation overall improved. Down to 45% FiO2. Continue to wean down as able. Pulse ox 97% on my exam
Hopefully can decrease oxygen supplementation to mid flow.
He is more comfortable, cooperative.Able to speak in full sentences.
Increase activity as able
Physical therapy/Occupational Therapy
Speech evaluation noted: No overt aspiration. Continue with aspiration precautions.
Repeat chest x-ray 11/26/2023.

VTach evening 11-16-no further episodes.
Low normal Mag, replaced IV at time of event
No gross e-lyte abnormalities at time of VTach, TDP, VFib/PEA
Status post cardiac arrest 11-17
Required intubation-CPR, 3 epi doses, shock x1 at 360. CPR for about 3 min till ROSC
Extubated 11/18/2023.
Continue to monitor electrolytes
Continue desk monitor.
Cardiology continues to follow. Plan for left and right heart catheterization today.
-
Nephrology continues to follow.
Continue to attempt negative fluid balance via peritoneal dialysis.
-
I started him on systemic steroids on 11/23/2023 for possible inflammatory pneumonitis/acute lung injury.
He is hyperglycemic now. Start glycemic control.
Based on right heart catheterization results, maintain high doses of IV corticosteroid for today.
Will start tapering tomorrow. Will need prolonged taper.
If there is no improvement, bronchoscopy with BAL might be helpful.
Repeat chest x-ray 11/26/2023
-
Antibiotics discontinued 11/19/2023. No evidence for infection.
Restarted on cefepime 11/21/2023: in reviewing x-rays no acute infiltrates. No evidence for infection. Discontinued antibiotics.
Blood cxs so far negative
Resp secs cx negative
NE off since 11-18
-
Glycemic control: Hold Lantus for now
Continue insulin drip. Hyperglycemia triggered by steroids.
-
On chronic coumadin for h/o PVD s/p stents
Will restart Coumadin today. Will discontinue heparin drip.
Monitor for bleeding
-
Critical care statement: A total of 31 minutes of critical care time was provided for this patient today. This includes management of unstable vital signs, evaluation of the patient at bedside, reviewing the patient's pertinent medical records
including ventilator settings, arterial blood gases, radiographs, microbiology, laboratory evaluations and discussion with primary team, critical care nursing, and respiratory therapy.

Diagnostic tests:
CXR 11-17-23 pm: interim intubation and GT. pulm vasc and parenchymal congestion.
CXR 11-12 and 08-31 AM, portable, improved pulm vasc and parenchymal congestion, sternotomy
TTE 11-17-23 (post cardiac arrest)
CONCLUSIONS
Limited study
Normal left ventricular chamber size. Mild concentric left ventricular
hypertrophy. Normal left ventricular systolic function. Left ventricular
ejection fraction is 50% by Grimaldo' s method. Diastology not assessed.
Since echocardiogram November 15, 2023 which was reviewed, there is no
significant change.
TTE 11-15-23
CONCLUSIONS
Normal left ventricular chamber size. Normal left ventricular systolic
function. Normal regional wall motion. Mild concentric left ventricular
hypertrophy. Left ventricular ejection fraction is 55-60% by visual estimate.
Diastolic function indeterminate due to atrial fibrillation.
Mildly thickened mitral valve leaflets. Mitral annular calcification. Mitral
valve opens normally. Trace mitral regurgitation.
Subjective Dataa
Subjective Data
Date of Service:
Date of Service: November 25, 2023
Chief Complaint: Pump Operator Follow Up (Acute hypoxemic respiratory failure requiring noninvasive mechanical ventilation.)
Subjective:
Patient offers no new complaints
Remains on high flow oxygen at 50%.
Denies phlegm production or hemoptysis
Continues to tolerate peritoneal dialysis on a daily basis.
Review of Systems
Cardiopulmonary: Dyspnea (Not at rest), Dyspnea on Exertion, Sputum Production (n) and Wheezing
GI: Abdominal Pain (n), Nausea (n) and Vomiting (n)
Objective Data
Data Reviewed
Vital Signs / I&O / Oxygen:
Vital Signs
Temp Pulse Resp BP Pulse Ox
97.4 F 70 17 113/45 93
11/25/23 11:25 11/25/23 09:30 11/25/23 08:00 11/25/23 09:30 11/25/23 11:09
Intake and Output
11/24/23 11/25/23 11/26/23
06:59 06:59 06:59
Intake Total 283 / 733 699.1 / 714.1 303 / 303
Output Total 700 / 700 1300 / 1300 800 / 800
Balance -417 / 33 -600.9 / -585.9 -497 / -497
SaO2 [NIV (Non Invasive 95
Ventilation)]
SaO2 [CPAP/PSV] 95
SaO2 [A/C] 96
SaO2 93
Nasal Cannula flow liters per 50
minute
Physical Exam
General: Respiratory Distress (mild with activity)
HEENT: Normocephalic and Moist Mucous Membranes
Cardiovascular: Regular Rhythm, Murmur (n) and Peripheral Edema (n)
Respiratory: Crackles and Stridor (n)
GI: Soft, Non Distended and Non Tender
Neurology: Awake, Alert and No Motor Deficits
Skin: Dry
Labs/Micro/Reports
Lab Data
11/25/23 04:32
11/25/23 04:32
Laboratory Results
11/24/23 11/25/23 11/25/23
16:30 00:20 08:27
PT 13.8
INR 1.04
APTT Cancelled 70.3 H 95.5 H
Microbiology
11/21/23 15:52 Blood/Venous Blood Culture - Preliminary
No Growth in 72 hours- Final report to follow
11/18/23 11:50 Blood/Venous Blood Culture - Final
No Growth - Final Report
11/17/23 13:16 Blood/Venous Blood Culture - Final
No Growth - Final Report
[2023-11-25 11:32] LABS: Glucose - Point of Care 116 mg/dl (70-99)
--- NOTE | 2023-11-25 12:00 | PTCARENOTE ---
Received pt on High Flow 50L 50%, will wean to midflow as tolerated, AOx3, voice hoarse, flat affect, cooperative w/ care. Sinus arrhythmia continues, PACs, BBB and prolonged QT, HR 60-70's. K 3.5, 20 PO KCL given. BP wnl. R arm ecchymotic,
neurovascular checks as documented. Continue w/ peritoneal dialysis Q4hr exchanges. Insulin gtt as per Gylcemic protocol, see worklist. Heparin gtt continues, PTT therapeutic, 700 units/hr. Full assessment as documented. Will continue to monitor.
[2023-11-25] MEDS: NOVOLOG FLEXPEN SC (12:14)
[2023-11-25] MEDS: KCL 20 MEQ PO (12:14)
[2023-11-25 13:38] LABS: Glucose - Point of Care 219 mg/dl (70-99)
[2023-11-25 14:39] LABS: Glucose - Point of Care 125 mg/dl (70-99)
--- NOTE | 2023-11-25 15:33 | PTCARENOTE ---
Pt on 8 of mid, sating 94%. No other changes in assessment.
--- NOTE | 2023-11-25 15:45 | WOUNDNOTE ---
R FOOT (LATERAL)(with photo flash)
--- NOTE | 2023-11-25 15:45 | WOUNDNOTE ---
WOC RN note: Patient's R lateral foot blister dried/improved, no drainage. Dressing changed. Skin on heels intact. Heels off bed with pillow. AARTI Crook confirmed patient's sacrum is intact. Will sign off, call if needed.
[2023-11-25 16:43] LABS: Glucose - Point of Care 90 mg/dl (70-99)
[2023-11-25] MEDS: COUMADIN 4 MG PO (17:23)
[2023-11-25 18:36] LABS: Glucose - Point of Care 140 mg/dl (70-99)
--- NOTE | 2023-11-25 20:00 | PTCARENOTE ---
Received report from ruma RN, assumed care of patient at 1900. Nursing assessment completed and as documented. Ox3, drowsy but arouses to verbal stimuli, DE LUNA/FSC but with generalized weakness. On 8L MF 90-93%, +TRISTAN and orthopnea, shallow
respirations, coarse at bases otherwise diminished lung sounds throughout. Sinus arrhythmia on monitor with PAC's, atrial tachycardia and prolong QT intervals, TR anasarca, weak but +PP. Patient oliguric on PD Q4hr, see worklist for documentation,
PD catheter site to RLQ CDI. Heparin infusing at 7ml/hr via LUE Midline, daily therapeutic PTT ordered, see worklist. Insulin infusing per glycemic protocol via 20g R AC, see worklist for documentation. Vascular checks to RUE as documented via
worklist, R brachial site ecchymotic with 4x4 and tegaderm, CDI. Patient repositioned for comfort, medications given without difficulty, VSS, call lin within reach, care ongoing.
[2023-11-25 20:45] LABS: Glucose - Point of Care 193 mg/dl (70-99)
[2023-11-25] MEDS: LIPITOR 40 MG PO (21:15)
[2023-11-25 21:46] LABS: Glucose - Point of Care 158 mg/dl (70-99)
[2023-11-25 23:39] LABS: Glucose - Point of Care 115 mg/dl (70-99)
[2023-11-26] VITALS (26 sets, daily range): BP systolic 76–155; BP diastolic 31–87; PULSE 59; O2SAT 91; BMI 28.5
--- NOTE | 2023-11-26 | PTCARENOTE ---
No changes to physical assessment. PD performed as per order, remains on insulin gtt per glycemic protocol, heparin infusing per protocol. See worklist for documentation. VSS, call lin within reach, care ongoing.
[2023-11-26] MEDS: DECADRON 4 MG IV ×2 (01:45→16:08)
[2023-11-26 01:49] LABS: Glucose - Point of Care 89 mg/dl (70-99)
--- NOTE | 2023-11-26 03:30 | PTCARENOTE ---
Patients PD exchanges remain Q4hr with now 2.5% dialysate, noted to have fluid excess with new dialysate. PD infusion start time of 0300 and end time of 0345, notably slow from prior exchanges. Patient asymptomatic, PD catheter site CDI without
evidence of leaking. See worklist for documentation.
[2023-11-26 03:47] LABS: Glucose - Point of Care 153 mg/dl (70-99)
[2023-11-26] MEDS: ROXICODONE 10 MG PO (04:07)
[2023-11-26 04:53] LABS: INR 1.12; PT 14.7 Sec (11.4-14.6)
[2023-11-26 04:55] LABS: APTT 79.3 Sec (23.4-35.0)
[2023-11-26 05:33] LABS: Blood Urea Nitrogen 61 mg/dl (9-20); Calcium 8.6 mg/dl (8.4-10.2); Carbon Dioxide 27 mmol/L (22-30); Chloride 93 mmol/L (98-107); Estimated Creatinine Clearance 10 ml/min; Glucose 157 mg/dl (70-99); Potassium 3.3 mmol/L (3.5-5.1); Sodium 132 mmol/L (135-145); eGFR 8.28
[2023-11-26 05:52] LABS: Glucose - Point of Care 144 mg/dl (70-99)
[2023-11-26] MEDS: KCL 20 MEQ PO (05:53)
[2023-11-26] MEDS: MAGNESIUM OXIDE 500 MG PO (07:53)
[2023-11-26] MEDS: LOW STRENGTH ASPIRIN 81 MG PO (07:53)
[2023-11-26] MEDS: ZETIA 10 MG PO (07:53)
[2023-11-26] MEDS: PROTONIX 40 MG PO (07:53)
[2023-11-26] MEDS: LOPRESSOR 25 MG PO ×2 (07:54→21:06)
[2023-11-26] MEDS: MIRALAX 17 GRAMS PO (07:54)
[2023-11-26 07:59] LABS: Glucose - Point of Care 122 mg/dl (70-99)
--- NOTE | 2023-11-26 08:02 | W.PN.HOSP.TC ---
Addendum entered and electronically signed by Rex Yanez MD 11/26/23 18:20:
Cardiogenic shock.
Original Note:
Today's Communication/Plan
-
Replete potassium. Continue PD. Continue IV steroids. Continue insulin drip.
Assessment / Plan
Assessment / Plan
Physical exam:
General: Acutely ill.
HEENT: Normocephalic, Atraumatic and Moist Mucous Membranes
Respiratory: Few Crackles in the bases. No wheezes. No rhonchi
Cardiac: Regular Rhythm and tachycardic, and S1/S2
GI: Soft, Nontender and Nondistended
Musculoskeletal: No Clubbing, No Cyanosis. No edema
Neuro: Alert oriented, No neuro-deficits, generalized weakness
Psych: Calm. Much improved cognitively.
A/P:
#Acute hypoxic respiratory failure:
-After his prolonged hospital course and based on the evidence we have at hand, it appears etiology is acute interstitial pneumonia 'inflammatory pneumonitis per pulm'/acute lung injury:
-Continue IV steroids, titrated today to dexamethasone 4 mg every 12 hours
-On insulin drip while on steroids. Plan to transition to SQ insulin as we titrate down steroids.
-Down to mid flow 8 L of oxygen today from High Flow Oxygen prior. Continue to titrate oxygen as able.
-No need for antibiotics
-Reviewed latest CT scan of the chest and all images during this hospital stay including today's cxr--> latest chest x-ray with bilateral opacities (disagree with radiology report rather than worsening it's pretty much the same).
-Discussed with gameplay programmer/pulmonary today on 11/26
-Discussed with over the phone today and updated her about plan of care on 11/26
#End-stage renal disease on PD:
-Continue PD per nephrology. Nephrology following.
-Volume effectively coming off but would not be feasible upon discharge for either home (prob can not do it by himself) or SNF (would not be accepted).
-Would likely require conversion to hemodialysis but will defer to nephrology for timing
#Cardiorespiratory arrest/CAD:
- VT/V Fib arrest on 11/17 with ROSC
-V. tach-->TDP-->V Fib-->PEA. CPR abt 3 min and Epinephrine x3. V Fib s/p shock 360J x1--> ROSC achieved.
-On aspirin, beta-blockers increased metoprolol 25 mg twice a day, on statin atorvastatin 40 mg p.o. nightly.
-Latest EKG if QTc is 450 which is an improvement from prior EKGs(>500's).
-Keep K above 4 and mag above 2
-Continue cardiac monitoring
-Right heart cath showed PCWP of 13 on 11/24
-Transthoracic echocardiogram--> EF 50%, mild concentric left ventricular hypertrophy, no significant changes from prior echo.
-Cardiology following
-Known history of CAD with CABG back in 1995.
-Plan for left heart cardiac cath next week if respiratory status stable and possible AICD.
#Peripheral vascular disease:
-On aspirin, warfarin. On statins.
-Known PVD, femoropopliteal bypass 2015, right CEA 2019, left CEA 2018, right Stent [facility] COMMISSARY HELPER 2020
-Heparin drip transitioned to warfarin on 11/25
-INR 1.12 today
#Atrial tachycardia:
-Continue beta-blockers, metoprolol titrate 20 mg twice a day.
#Chronic diastolic CHF:
-Volume off through dialysis.
-On Beta-blockers.
#Hypokalemia:
-Replete and trend
#Hypomagnesemia:
-Magnesium stable today
-On magnesium oxide 500 mg twice a day
-Replete and trend as needed
# Toxic metabolic encephalopathy:
-Multifactorial in nature with uremia and hypoxemia but currently improving and back to his baseline.
-Head CT with impression of no acute intracranial abnormality but some chronic changes noted.
-MRI brain negative for acute stroke or pathology.
-Continue to monitor mental status.
#Hypertension:
-Continue metoprolol titrate 20 mg twice a day
-Monitor blood pressure adjust medications according
# Hyperlipidemia:
-Continue atorvastatin 40 mg p.o. nightly
-Continue Zetia 10 mg p.o. daily
#Depression:
-Discontinued Zoloft to avoid prolonged QTc.
DVT prophylaxis:
-Warfarin
CODE STATUS:
-Full code
Total time spent on today's encounter was 52 minutes which included time spent in counseling the patient/family regarding diagnosis and treatment plan as listed above, goals of care, and symptom management. Case was discussed with nursing staff,
specialists, and care coordinators/case management. All labs and imaging personally reviewed by me. Remainder the time spent in detailed review of previous records, lab data, imaging, and other medical provider documentation.
Anticipated Discharge: > 48 hours
Subjective/Interval History
-
Date of Service: November 26, 2023
Patient feels better overall, less shortness of breath, no chest pain. Patient on supplemental oxygen but down to 8 L today. Afebrile
Objective Data
-
Labs:
Laboratory Results
11/26/23
04:26
PT 14.7 H
INR 1.12
APTT 79.3 H
Sodium 132 L
Potassium 3.3 L
Chloride 93 L
Carbon Dioxide 27
BUN 61 H
Creatinine 6.9 H*
Glucose 157 H
Calcium 8.6
Vital Signs:
Vital Signs
Temp Pulse Resp BP Pulse Ox
97.8 F 62 20 129/65 91
11/26/23 07:41 11/26/23 07:54 11/26/23 06:00 11/26/23 07:54 11/26/23 06:00
I&O
11/25/23 11/26/23 11/27/23
06:59 06:59 06:59
Intake Total 699.1 / 714.1 888.6 / 1141.6
Output Total 1300 / 1300 1650 / 1650
Balance -600.9 / -585.9 -761.4 / -508.4
Review of Systems
-
All other systems: Reviewed and negative
--- NOTE | 2023-11-26 08:15 | PTCARENOTE ---
Assumed care of Pt this morning. VSS. Received Pt on insulin gtt and heparin gtt, see documentation. Pt on monitor, SA w prolong QT and PACs. Afebrile. Trace anasarca. Weak b/l pedal pulses but palpable. Received Pt on 8L midflow, O2 sats 94%. Lungs
coarse posteriorly. +BS, abd soft round/obese. Pt oliguric. Received Pt dwelling, due to drain at 10:30. Skin sallow but dry and intact. Pt offers no complaints at this time, resting comfortably in bed. Safe environment maintained. Cont with current
plan.
--- NOTE | 2023-11-26 08:27 | PN.DE.MGMTRT ---
Insulin Management
- -
11/18/2023 Diabetes Management Follow up
Admitted 11/12 for R foot wound, confusion, SOB, swelling. PMH renal failure with peritoneal dialysis, HTN, PVD type 2 diabetes. Prior to admission chart reflects he was taking 60 units Basaglar daily with NovoLog 28 units BID. A1C 8.6%. Patient
had cardiac arrest 11/16 now intubated on mechanical ventilation and insulin infusion. Prior to this patient was receiving Lantus in AM with AC NovoLog at reduced doses.
Will continue glycemic protocol at this time. If patient is weaned off of ventilator will assess for readiness to transition to subcutaneous insulin.
11/19/2023: Diabetes Management F/U:
Pt extubated last evening. Doing well, sitting up in bed, offers no complaints.
Glucose trended up to 197, remains on glycemic protocol requiring 0.8-7 units of insulin/ hr while NPO.
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
Will transition off drip. Give Lantus 30 units NOW, turn drip off 1 hr after.
Start AC NovoLog 8 units and moderate corrective insulin with meals. Start 1800 ADA diet. Accucheks AC/HS
Will follow for further needed insulin adjustments. Plan of care d/w pt and Nurse.
11/22/2023: Diabetes Management F/U:
Pt transferred back to ICU for increased O2 requirements.
Currently NPO for R/LHC today. Premeal glucose trended up to 345 requiring 3-7 units of corrective insulin.
Will make no changes to regimen at this time, reassess after procedure and make necessary adjustments to insulin dose
11/23/2023 Diabetes Management Follow Up
Patient glucose controlled on current regimen, trended down to 79 @ HS. Will slightly decrease AM Lantus dose to 27 units to start Wednesday, 11/24.
Patient is NPO for procedure, will order one time dose of Lantus 15 units now.
11/24/2023 Diabetes Management Follow Up
Cardiac cath cancelled yesterday due to patient hypoxia. Dexamethasone 4 mg BID started last evening, glucose up to 460. Insulin administered. Fasting glucose 393. Glycemic protocol has been started. Will continue today and reassess in AM/
11/25/2023 Diabetes Management Follow up
Patient remains on steroids, glucose controlled on glycemic protocol requiring .8 to 10 units NovoLog per hour. He is eating meals and receiving supplemental insulin. Will continue glycemic protocol, assess in AM for readiness to transition to
subq regimen. I spoke with patient nurse.
11/26/2023: Diabetes Management F/U:
Patient remains on steroids- Dexa 4mg Q8hrs, continues on glycemic protocol, glucose range 89-219 requiring .5 to 12 units NovoLog per hour.
He is eating meals and receiving supplemental insulin.
Plan is to start steroid taper today, will continue glycemic protocol for now and reassess later today for readiness to transition to SQ insulin.
Diabetes History
- -
Type of Diabetes: 2 requiring insulin
Pre-Admission Diabetes Regimen
11/26/23
04:26
Creatinine 6.9 H*
Lab Results
Hemoglobin A1c 8.6 % (4.0-5.6) H 11/13/23 06:09
Insulin Pump Settings
IP Diabetes Regimen
11/25/23 11/25/23 11/25/23
09:18 11:21 13:26
Glucose
POC Glucose 109 H 116 H 219 H
11/25/23 11/25/23 11/25/23
14:26 16:32 18:24
Glucose
POC Glucose 125 H 90 140 H
11/25/23 11/25/23 11/25/23
20:32 21:34 23:28
Glucose
POC Glucose 193 H 158 H 115 H
11/26/23 11/26/23 11/26/23
01:38 03:35 04:26
Glucose 157 H
POC Glucose 89 153 H
11/26/23 11/26/23
05:42 07:47
Glucose
POC Glucose 144 H 122 H
Meal type: Breakfast
Amount consumed: 75%
Patient Education
[2023-11-26 09:47] LABS: Glucose - Point of Care 102 mg/dl (70-99)
[2023-11-26 09:53] LABS: Magnesium 2.4 mg/dl (1.6-2.3)
[2023-11-26] MEDS: NOVOLOG FLEXPEN 4 UNITS SC ×2 (10:16→16:20)
[2023-11-26] MEDS: NOVOLIN R INSULIN INFUSION 100 IV (10:18)
--- NOTE | 2023-11-26 10:20 | W.PN.INTV ---
Today's Communication / Plan
Recommendations
Continue to wean down oxygen
Steroids will decrease
Increase mobility as able
Wean down insulin as able
Maintain critical care unit due to insulin drip.
Assessment
-
Assessment:
Mr Blair Thakkar is a 63/M adm 11-12 with confusion and EV edema. Known h/o CKD on PD, recently not able to do PD himself due to confusion, did. At ER, confused, hypoxemic. Seen by Neurology, no acute findings on CT and MRI brain. Seen by
Renal, resumed PD soon after adm. VTach episode on night 11-16, received IV Mag with resolution. VTach returned on early afternoon 11-17, started Mag IV infusion, MS continued deteriorating, became unresponsive, VTach deteriorated to TDP, then
VFib, shock at 360K x1, developed PEA, received 3 doses epinephrine, total CPR time about 3 min with ROSC, intubated by anesthesia with no reported difficulty
Impression:
Acute hypoxemic respiratory failure: Bilateral infiltrates
Differential diagnosis includes pulmonary edema/inflammatory pneumonitis/less likely infectious
Cardiac arrest 11-17-23
VTach, TDP, VFib, PEA
Low normal serum Mg on 11-16 and given IV Mag on 11-16 and also 11-17 (Mg was running at time of arrest)
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
CKD on PD
CAD s/p CABG
PVD s/p bilateral EV stenting
Emergent stenting RLE Jun 2021 ()
DM
HTN
HLD
Depression
Obesity

Plan:
11/21/2023: Transferred back to the ICU with increased work of breathing necessitating noninvasive mechanical ventilation. Acute onset.
Chest x-ray at that time with mild pulmonary edema bilaterally.
CT chest 11/23/2023: Extensive bilateral groundglass opacities with subsegmental bibasilar atelectasis. No pulmonary embolism.
ABG with respiratory alkalosis.
-
Recent for decompensation perhaps:cannot rule out aspiration with subsequent acute lung injury. Cannot rule out undifferentiated inflammatory pneumonitis: Patient has never been on amiodarone.
Continue to hold antibiotics-no signs of infection.
Right heart catheterization 11/24/2023: Not consistent with volume overload.
-
Oxygenation improved. High flow has been discontinued. Currently on mid flow 8 L. Continue to wean down as able.
Increase activity as able
Physical therapy/Occupational Therapy-continues as able.
Speech evaluation noted: No overt aspiration. Continue with aspiration precautions.
Repeat chest x-ray 11/26/2023.Persistent bilateral infiltrates.
-
Continue systemic steroids on 11/23/2023 for possible inflammatory pneumonitis/acute lung injury.
He is hyperglycemic now. Start glycemic control.
Based on right heart catheterization results, maintain high doses of IV corticosteroid for today.
Decreased dexamethasone to 4 mg IV every 12 11/26/2023. Patient significantly hyperglycemic on insulin drip.
If there is no improvement, bronchoscopy with BAL might be helpful.

VTach evening 11-16-no further episodes.
Low normal Mag, replaced IV at time of event
No gross e-lyte abnormalities at time of VTach, TDP, VFib/PEA
Status post cardiac arrest 11-17
Required intubation-CPR, 3 epi doses, shock x1 at 360. CPR for about 3 min till ROSC
Extubated 11/18/2023.
Continue to monitor electrolytes
Continue monitoring engineer.
Cardiology continues to follow.
-
Nephrology continues to follow.
Continue to attempt negative fluid balance via peritoneal dialysis.
-
Antibiotics discontinued 11/19/2023. No evidence for infection.
Restarted on cefepime 11/21/2023: No evidence for infection. Discontinued antibiotics.
Blood cxs so far negative
Resp secs cx negative
NE off since 11-18
-
Hyperglycemia: Steroid-induced per
Continue to wean down insulin drip. Currently at 6 units.
Hopefully will improve as we are tapering down Solu-Medrol per
-
On chronic coumadin for h/o PVD s/p stents
Continue heparin drip, Coumadin restarted.
Monitor for bleeding
-
Critical care statement: A total of 31 minutes of critical care time was provided for this patient today. This includes management of unstable vital signs, evaluation of the patient at bedside, reviewing the patient's pertinent medical records
including ventilator settings, arterial blood gases, radiographs, microbiology, laboratory evaluations and discussion with primary team, critical care nursing, and respiratory therapy.

Diagnostic tests:
CXR 11-17- pm: interim intubation and GT. pulm vasc and parenchymal congestion.
CXR -05 and - AM, portable, improved pulm vasc and parenchymal congestion, sternotomy
TTE 11-17-23 (post cardiac arrest)
CONCLUSIONS
Limited study
Normal left ventricular chamber size. Mild concentric left ventricular
hypertrophy. Normal left ventricular systolic function. Left ventricular
ejection fraction is 50% by Grimaldo' s method. Diastology not assessed.
Since echocardiogram November 15, 2023 which was reviewed, there is no
significant change.
TTE 11-15-23
CONCLUSIONS
Normal left ventricular chamber size. Normal left ventricular systolic
function. Normal regional wall motion. Mild concentric left ventricular
hypertrophy. Left ventricular ejection fraction is 55-60% by visual estimate.
Diastolic function indeterminate due to atrial fibrillation.
Mildly thickened mitral valve leaflets. Mitral annular calcification. Mitral
valve opens normally. Trace mitral regurgitation.
Subjective Dataa
Subjective Data
Date of Service:
Date of Service: November 26, 2023
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
Subjective:
He denies any acute symptoms at the moment
Denies phlegm production or hemoptysis
On mid flow oxygen
Review of Systems
General: Fever (n)
Cardiopulmonary: Dyspnea (none at rest), Cough (n) and Sputum Production (n)
Objective Data
Data Reviewed
Vital Signs / I&O / Oxygen:
Vital Signs
Temp Pulse Resp BP Pulse Ox
97.8 F 61 13 132/54 94
11/26/23 07:41 11/26/23 08:00 11/26/23 08:00 11/26/23 08:00 11/26/23 08:03
Intake and Output
11/25/23 11/26/23 11/27/23
06:59 06:59 06:59
Intake Total 699.1 / 714.1 888.6 / 1141.6 265 / 265
Output Total 1300 / 1300 1650 / 1650
Balance -600.9 / -585.9 -761.4 / -508.4 265 / 265
SaO2 [NIV (Non Invasive 95
Ventilation)]
SaO2 [CPAP/PSV] 95
SaO2 [A/C] 96
SaO2 94
Nasal Cannula flow liters per 8
minute
Physical Exam
General: Respiratory Distress (mild with activity)
HEENT: Normocephalic and Moist Mucous Membranes
Cardiovascular: Regular Rhythm, Murmur (n) and Peripheral Edema (n)
Respiratory: Crackles and Stridor (n)
GI: Soft, Non Distended and Non Tender
Neurology: Awake, Alert and No Motor Deficits
Skin: Dry
Labs/Micro/Reports
Lab Data
11/25/23 04:32
11/26/23 04:26
Laboratory Results
11/26/23
04:26
PT 14.7 H
INR 1.12
APTT 79.3 H
Microbiology
11/21/23 15:52 Blood/Venous Blood Culture - Preliminary
No Growth in 4 days- Final report to follow
11/18/23 11:50 Blood/Venous Blood Culture - Final
No Growth - Final Report
[2023-11-26] MEDS: HEPARIN 25000 UNITS/250 ML IV (11:26)
[2023-11-26 11:44] LABS: Glucose - Point of Care 106 mg/dl (70-99)
--- NOTE | 2023-11-26 12:00 | PTCARENOTE ---
Systems reviewed. VSS. Pt remains on heparin gtt and insulin gtt, see worklist. PD as ordered, see documentation. Pt resting comfortably in bed, safe environment maintained. Cont with current plan.
--- NOTE | 2023-11-26 12:26 | W.PN.CARDCBS ---
Today's Communication / Plan
-
Remains stable from CV stand point
Steroids and O2 wean per pulmonology
Replete K/Mg, repeat EKG
Tentative LHC next week when stable from pulm/renal standpoint
Discussion regarding ICD therapy to occur following angiography
Impression / Plan
-
PCP: Dr. Susan Starkey
Cardiology: Unknown
Nephrology: [facility]
Vascular surgery: Dr. Sweeney
Impression:
Respiratory failure, multifactorial on Hiflo
In-hospital cardiac arrest 11/17/23
VT arrest
s/p shock x1 and Epi x1 11/17/23
Prolonged QT
Admitted with TME, uremia and anasarca 11/12/23
ESRD on PD
failing at home PD due to cognitive dysfunction
Elevated Troponin
CAD s/p CABG outside hospital 1995
Acute HFpEF
Anasarca
PAD
fem pop bypass 2015
right CEA at [facility] 03/2019
left CEA at [facility] 07/2019
right [facility] RADIOLOGY PRACTITIONER ASSISTANT 2020
Chronic warfarin OAC for PAD
DM 2
Echo 11/15/23: EF 55-60%, trace MR
Echo 11/17/23: LVEF 50% with mild LVH. No significant valve disease.
Cath: June 24, 2012 for atypical chest discomfort via right common femoral artery:
Aortic pressure: 141/64, mean of 95 mmHg. LVEDP of 12. Weight 102kh.
Coronary circulation: Mid LAD: 100% stenosis.
Mid circumflex: 100% stenosis
OM1: 100% stenosis with good blood supply to the distal myocardium from a graft.
Proximal RCA: Discrete 95% stenosis. Mid RCA with 95% stenosis.
Graft to the LAD: The graft was normal size sequential free radial from OCAMPO. Graft angiography showed minimal luminal irregularities.
Graft to the first diagonal: The graft was a OCAMPO, it was normal.
Graft to the first obtuse marginal: The graft was a OCAMPO from first diagonal. Graft angiography showed no evidence of disease.
Graft to the mid RCA: The graft was a FILIPE and it was normal.
Summary of outpatient cardiology records: EKG from June 29, 2023 showing sinus rhythm with right bundle branch block and secondary ST-T wave changes. He was last seen in the office on June 29, 2023 and did not repeat any active cardiac
complaints. They noted a history of proximal three-vessel coronary artery disease which led to coronary artery bypass grafting done in 1995 with a OCAMPO to diagonal 1 and obtuse marginal 3, FILIPE to mid RCA, radial conduit of the OCAMPO to diagonal 1
and sequentially to LAD. Heart catheterization was repeated on June 24, 2012 which showed patent bypass grafts however we do not have a detailed cath report.
-Bilateral carotid artery disease with right carotid endarterectomy on April 04, 2019 and left CEA in July 2019.
-Femoral to popliteal RADIOLOGY PRACTITIONER ASSISTANT April 23, 2016, stenting of the right superficial femoral and popliteal arteries with angioplasty of the proximal right superficial femoral artery, angioplasty of the left superficial femoral artery with minimal residual
diffuse disease.
-Left Pharm pop RADIOLOGY PRACTITIONER ASSISTANT angioplasty of multifocal superficial femoral artery in September 2012, RADIOLOGY PRACTITIONER ASSISTANT of tibioperoneal trunk. Left popliteal artery stent was not placed because of concerns for stent fracture in September 2012.
-Last myocardial perfusion study on May 13, 2023 without evidence of ischemia, LVEF 51%
-Patient has chronic claudication complaints per outpatient notes with limited mobility and has been maintained on chronic anticoagulation with warfarin.
Right heart cath 1 05/24/24: RA 8, 38/15, wedge 13, cardiac index 1.5
Plan:
From a cardiac standpoint, he seems stable. By right heart catheterization, his wedge is probably close to optimal. His SVR was high and cardiac index is relatively low. Targeting a slightly higher dry weight might be reasonable to improve
cardiac output.
Volume management per renal
Pulmonary following breathing improving.
His QT interval is still relatively prolonged; repeat EKG with improved electrolytes, monitor on telemetry
Major issue at this time is oxygen requirement still requires high flow oxygen to maintain saturations related to pulmonary infiltrates which are not cardiogenic.
Defer decision regarding dialysis changes to nephrology
No new cardiac recommendations at this time.
He will need a left heart catheterization once his pulmonary status improves prior to discharge. After catheterization we can determine if ICD implantation is required.
HPI: Patient came to [facility] on 11/12/23 with increasing SOB after he had trouble keeping up with his home PD treatments and he was admitted with acute HF and volume overload, cardiology is now consulted after a VT arrest today. Patient was admitted
11/12/23 with anasarca, SOB and failing PD at home. Patient lives in [place] and follows with a motorcycle tester at [facility], but came to for care. Patient and also noted increasing somnolence and some confusion which overall seemed to be
contributing to trouble with maintaining PD treatments at home resulting in weight gain and SOB. Weight was up at least 10 lbs on admission. Patient was admitted and seen by nephrology at , PD was restarted in the hospital. Patient had an echo
11/15/23 that showed a preserved EF. There is a h/o CABG at an outside hospital in 1995, primary signaling design engineer unknown and patient has never seen cardiology at before. Patient with hyperkalemia on admission that resolved with PD. QT was prolonged to
486 ms on ECG on admission 11/12/23 in the setting of RBBB, then 522 ms 11/16/23, then 543 ms this afternoon at 1330. Patient with a run of VT and confusion noted by nursing around 1330 today and magnesium rider ordered. Last magnesium level was 1.6 on
11/16/23. Patient then had sustained VT and cardiac arrest prompting code 9. Cardiology arrived with rest of the team. Patient undergoing CPR and received Epi x1 and shocked x1 with ROSC. Patient intubated by anesthesia team.
CCT: 33 mins
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
Subjective
Date of Service: November 26, 2023
Patient seen and examined. No acute events. SR with PACs, PVCs on telemetry. Notes improving dyspnea but still present. Denies cp, palpitations, lh, dizziness, or weakness.
Objective
Labs:
01/18/24 04:32
11/26/23 04:26
Labs
Hgb 9.4 g/dL (13.0-18.0) L 11/25/23 04:32
Hct 28.3 % (39.0-52.0) L 11/25/23 04:32
Plt Count 217 10^3/uL (130-400) 11/25/23 04:32
PT 14.7 Sec (11.4-14.6) H 11/26/23 04:26
INR 1.12 11/26/23 04:26
APTT 79.3 Sec (23.4-35.0) H 11/26/23 04:26
Sodium 132 mmol/L (135-145) L 11/26/23 04:26
Potassium 3.3 mmol/L (3.5-5.1) L 11/26/23 04:26
BUN 61 mg/dl (9-20) H 11/26/23 04:26
Creatinine 6.9 mg/dL (0.7-1.3) H* 11/26/23 04:26
Glucose 157 mg/dl (70-99) H 11/26/23 04:26
Troponins
11/24/23
04:51
Troponin I 0.055 H*
Vital Signs and I&O:
Vital Signs
Temp Pulse Resp BP Pulse Ox
96.7 F L 56 12 133/53 95
11/26/23 11:43 11/26/23 11:00 11/26/23 11:00 11/26/23 11:00 11/26/23 11:00
Vital Signs
Temp Pulse Resp BP Pulse Ox
96.7 F L 56 12 133/53 95
11/26/23 11:43 11/26/23 11:00 11/26/23 11:00 11/26/23 11:00 11/26/23 11:00
Intake & Output
11/24/23 11/25/23 11/26/23 01/20/24
06:59 06:59 06:59 06:59
Intake Total 283 / 733 699.1 / 714.1 888.6 / 1141.6 535.8 / 535.8
Output Total 700 / 700 1300 / 1300 1650 / 1650 150 / 150
Balance -417 / 33 -600.9 / -585.9 -761.4 / -508.4 385.8 / 385.8
Physical Exam
Physical Exam
GENERAL: no acute distress, on HF-NC
EYE: sclera anicteric
NECK: Supple, no JVD, no carotid bruit appreciated
ENT: normal nose, moist mucosal membranes
CARDIAC: Regular rate and rhythm, +S1/S2, no murmur, rubs, or gallops
CHEST/PULMONARY: Normal effort, clear breath sounds
ABDOMEN: Soft, PD in place
NEUROLOGICAL: Alert and oriented x3
SKIN: Warm and dry, no rash
PSYCH: Normal and appropriate interaction.
--- NOTE | 2023-11-26 12:46 | W.PN.NEPH.PH ---
Today's Communication / Plan
-
- continue with 2.5% bags today
Assessment/Plan
-
Assessment
-ESRD on PD
-volume overload
-CHF
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
-PAD
-HTN
-edema
-CAD/CABG
-DM2
-Hyponatremia
-In-hospital cardiac arrest 11/17/23
-VT arrest
s/p shock x1 and Epi x1 11/17/23
Plan
-PD ordered, 2.5 bags, 2L q4h, weights continue to drop an RHC notes PCWP of 13
-PD flow sheet reviewed
-CT of chest notes new ground glass opacities (steroid initiated by pulmonary)
-there is a possibility that he will need to be converted to HD here depending on volume status and for home discharge planning. discussed with patient today and he is amenable to the change
-Hemodynamically stable
-replete K as needed
-
-
Date of Service: November 26, 2023
CC / HPI / ROS
-
Chief Complaint:
ESRD
History of Present Illness:
PD in progress
s/p code 9 with VT 11/17/23
on high flow O2 and remains on IV Decadron
Review of Systems:
no fever
no CP
sob today
Weights stable
Labs
-
Labs:
WBC 11.8 10^3/uL (4.8-10.8) H 11/25/23 04:32
RBC 3.24 10^6/uL (4.70-6.10) L 11/25/23 04:32
Hgb 9.4 g/dL (13.0-18.0) L 11/25/23 04:32
Hct 28.3 % (39.0-52.0) L 11/25/23 04:32
Plt Count 217 10^3/uL (130-400) 11/25/23 04:32
Sodium 132 mmol/L (135-145) L 11/26/23 04:26
Potassium 3.3 mmol/L (3.5-5.1) L 11/26/23 04:26
Chloride 93 mmol/L (98-107) L 11/26/23 04:26
Carbon Dioxide 27 mmol/L (22-30) 11/26/23 04:26
BUN 61 mg/dl (9-20) H 11/26/23 04:26
Creatinine 6.9 mg/dL (0.7-1.3) H* 11/26/23 04:26
eGFR 8.28 11/26/23 04:26
Glucose 157 mg/dl (70-99) H 11/26/23 04:26
Calcium 8.6 mg/dl (8.4-10.2) 11/26/23 04:26
Phosphorus 3.4 mg/dl (2.5-4.5) 11/22/23 04:43
Ebv-D-Unwphjwbykk Pept > 26844 pg/ml 11/24/23 04:51
Albumin 2.7 g/dl (3.5-5.0) L 11/12/23 13:11
Physical Exam
-
Vital Signs:
Vital Signs
Temp Pulse Resp BP Pulse Ox
96.7 F L 56 12 133/53 95
11/26/23 11:43 11/26/23 11:00 11/26/23 11:00 11/26/23 11:00 11/26/23 11:00
Cardiovascular:: Regular rate and rhythm
Respiratory:: Bilateral: Coarse
Lung Excursion:: Normal
Abdomen:: Nontender and Soft
Bowel Sounds:: Normal
Extremity Edema:: +1: Bilateral:
Sweeney Catheter: No
--- NOTE | 2023-11-26 12:47 | CM ---
Addendum entered by Bolivar Deras 11/26/23 15:00:
CM spoke to pt's spouse Rubina and she stated that pt's PD manages by [facility]. CM explained to pt's spouse obstacles of getting pt to a SNF or an acute rehab due to PT and spouse expressed her understanding. Pt's spouse stated she
is retired and will be able to provide necessary care to pt at home and pt is known to [facility].
D/C plan: home with [facility] and spouse support.
CM will follow with discharge plan updates as hospitalization progresses
Original Note:
CM following re: discharge planning.
Discussed in Rounds,reviewed pt's chart, met with pt. Per Rounds meeting, pt downgraded to 8 L midflow of O2 with saturation of 98%, , receiving PD, continue supportive care. Nephrology, Cardiology following.
Per airplane mechanic, [facility] is not a center that manages PD. Per airplane mechanic, another renal company based in [facility] manages it and there is no information.
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 Awaiting for [facility] input.
PT and OT continue recommend SNF level of care. SNF level of care is not an option due to pt receives PD.
CM spoke to [facility] physician to see whether or not acute level of rehab can be an option. A referral to [facility] acute rehab made and a referral has been denied due to PD.
D/C plan: TBD and will depend on pt's progress. Due to PD, pt probably will need to return back home with resumptions of [facility] services and family support as SNF and acute rehab are not an option
CM will follow with discharge plan updates as hospitalization progresses
[2023-11-26] MEDS: NOVOLOG FLEXPEN SC (13:34)
[2023-11-26 13:43] LABS: Glucose - Point of Care 178 mg/dl (70-99)
--- NOTE | 2023-11-26 13:50 | PN.CDI ---
CDI
- -
CDI:
Physician Documentation Request
Admit Date: 11/12/23 18:34
Dear Doctor Renata,
11/17 Hospitalist note states 'cardiorespiratory arrest V. tach-->TDP-->V Fib-->PEA. CPR abt 3 min and Epinephrine x3. V Fib s/p shock 360J x1--> ROSC achieved
11/18 cardiology note state 'Patient was successfully extubated however continues to remain on low-dose Levophed'
11/20 Hospitalist note states 'ruled out sepsis/septic shock'
11/24 Right heart cath conclusion states ' 1. Near normal right and left-sided filling pressures with mildly pulmonary hypertension, 2. Reduced cardiac output in the setting of elevated systemic vascular resistance.'
Please clarify which of the following is the most likely etiology of the above symptoms and treatment rendered:
Cardiogenic shock
Shock, unknown type
Hypotension
Other
Use of terms such as suspected, likely, concern for, or probable (associated with a specific diagnosis that is being evaluated, monitored, or treated as if it exists) are acceptable and can be coded in the inpatient setting, when documented at the
time of discharge.
Thank you,
Evita Weldon RN, BSN
CDI Specialist
tiger text
Please use your independent medical judgment in providing your response.
[2023-11-26 14:39] LABS: Glucose - Point of Care 121 mg/dl (70-99)
[2023-11-26 15:47] LABS: Glucose - Point of Care 82 mg/dl (70-99)
[2023-11-26 16:30] LABS: Glucose - Point of Care 92 mg/dl (70-99)
--- NOTE | 2023-11-26 17:30 | PTCARENOTE ---
Systems reviewed. VSS. Pt OOB to chair assist x2 for ~2hrs and tolerated. Pt remains on 8L midflow. O2 sats 93-96%. Pt back in bed, resting comfortably. No complaints at this time. Safe environment maintained. Cont with current plan.
[2023-11-26] MEDS: COUMADIN 4 MG PO (17:39)
[2023-11-26 17:46] LABS: Glucose - Point of Care 103 mg/dl (70-99)
[2023-11-26] MEDS: XANAX 0.5 MG PO (18:06)
[2023-11-26 19:25] LABS: Glucose - Point of Care 190 mg/dl (70-99)
--- NOTE | 2023-11-26 19:57 | PTCARENOTE ---
Assumed care of pt at 1900. Pt is A/O x3, no c/o pain, pleasant and cooperative with care, flat affect noted. SR 60s/SB 50s on monitor with BBB. SpO2 94-96% on MFNC at 8LPM. Received pt on insulin drip her critical care glycemic protocol which is
ongoing, see flowsheet for details. Pt also on Heparin drip at 700 units/hr, has been therapeutic, next PTT due in AM. Physical assessment completed, see nursing shift assessment flowsheet for full details. Peritoneal dialysis ongoing, dwell
initiated by offgoing RN at end of previous shift, see flowsheet for details.
[2023-11-26 20:42] LABS: Glucose - Point of Care 215 mg/dl (70-99)
[2023-11-26] MEDS: LIPITOR 40 MG PO (21:06)
[2023-11-26 21:47] LABS: Glucose - Point of Care 214 mg/dl (70-99)
[2023-11-26 22:37] LABS: Glucose - Point of Care 187 mg/dl (70-99)
[2023-11-27] VITALS (22 sets, daily range): BP systolic 90–163; BP diastolic 39–101; BMI 28.7
[2023-11-27 00:20] LABS: Glucose - Point of Care 165 mg/dl (70-99)
[2023-11-27 01:13] LABS: Glucose - Point of Care 134 mg/dl (70-99)
--- NOTE | 2023-11-27 01:15 | PTCARENOTE ---
Assessment unchanged. SB 50s on monitor, SpO2 90%, pt has been asleep for most of the shift. PD ongoing, see flowsheet for details. Insulin and heparin infusions continue. Bed alarm activated.
[2023-11-27 02:17] LABS: Glucose - Point of Care 98 mg/dl (70-99)
[2023-11-27] MEDS: ROXICODONE 5 MG PO ×2 (03:27→03:28)
[2023-11-27] MEDS: DECADRON 4 MG IV (03:29)
[2023-11-27] MEDS: DEXTROSE 50% SYRINGE 12.5 GRAMS IV (03:29)
[2023-11-27 03:34] LABS: Glucose - Point of Care 51 mg/dl (70-99)
[2023-11-27 04:22] LABS: Glucose - Point of Care 117 mg/dl (70-99)
--- NOTE | 2023-11-27 04:25 | PTCARENOTE ---
Assessment unchanged. PD ongoing, see flowsheet for details. SB 50s on monitor with PACs and occasional PVCs noted. SpO2 94% on 8L MFNC. Medicated with 10mg oxycodone for '8.5/10' back pain. Accucheck at 0323 was 51--pt was awake, alert and
oriented, asymptomatic. Insulin drip stopped and 1/2 amp D50 given per critical care glycemic protocol. Accucheck repeated and was 117. New IV site needs to be obtained--heparin infusing through midline and insulin had been infusing through 20g PIV
in RAC but that IV site is no longer patent. Heparin and Insulin compatibility checked and the two meds are not compatible to run together.
[2023-11-27 05:22] LABS: Glucose - Point of Care 92 mg/dl (70-99)
[2023-11-27] MEDS: XANAX 0.5 MG PO (05:59)
--- NOTE | 2023-11-27 06:09 | PTCARENOTE ---
Having difficulty obtaining AM labs, IV team placed new PIV but unable to obtain labs from line. Another RN attempting at this time. Jason GALLAGHER made aware of difficulty getting labs. Insulin drip remains off at this time, pt's blood sugars
remain on the low side--most recent was 82.
[2023-11-27 06:21] LABS: Glucose - Point of Care 82 mg/dl (70-99)
[2023-11-27 06:24] LABS: % Basophils 0.1 % (0-2); % Immature Granulocytes 1.6 % (0-0.5); % Lymphocytes 4.6 % (20.5-51.1); % Monocytes 5.9 % (1.7-9.3); % Neutrophils 86.8 % (42.2-75.2); Absolute Eosinophils 0.1 10^3/uL (0-0.7); Absolute Immature Granulocytes 0.2 10^3/uL (0-0.05); Absolute Lymphocytes 0.6 10^3/uL (1.2-3.4); Absolute Monocytes 0.7 10^3/uL (0.1-0.6); Absolute Neutrophils 10.9 10^3/uL (1.4-6.5); Hematocrit 29.4 % (39.0-52.0); Hemoglobin 9.9 g/dL (13.0-18.0); Mean Corp Hgb Conc. 33.7 g/dL (33.0-37.0); Mean Corpuscular Hgb 29.4 pg (27.0-31.0); Mean Corpuscular Volume 87.2 fL (80.0-94.0); Mean Platelet Volume 11.1 fL (7.4-10.4); Nucleated Red Blood Cells % 0.2 % (-); Platelet Count 199 10^3/uL (130-400); Red Blood Cell Count 3.37 10^6/uL (4.70-6.10); White Blood Cell Count 12.6 10^3/uL (4.8-10.8)
[2023-11-27 07:14] LABS: Glucose - Point of Care 84 mg/dl (70-99)
--- NOTE | 2023-11-27 07:15 | PTCARENOTE ---
Assumed care of patient, patient is somnolent, drowsy but arousable, states he feels very tired this morning. He is oriented x3 and can move all extremities although very generally weak. Patient is on 8L midflow nasal cannula, saturations low 90s.
diminished breath sounds throughout. Patient is sinus judi on monitor. Patient is PD patient, currently awaiting time to drain, oliguric with urine. Patient has been on insulin gtt, was turned off by prior RN, sugars have been low ,will
transition off gtt with supervisor coremaker. Patient due to start Lantus. Tubigrips to lower extremities, generally unwell/sallow appearing. Denies pain at this time, has had chronic back pain in prior shifts. Will continue to monitor, call lin within
reach and patient is able to make needs known.
[2023-11-27 07:19] LABS: INR 1.24; PT 15.9 Sec (11.4-14.6)
[2023-11-27 07:25] LABS: Blood Urea Nitrogen 59 mg/dl (9-20); Calcium 8.1 mg/dl (8.4-10.2); Carbon Dioxide 28 mmol/L (22-30); Chloride 95 mmol/L (98-107); Estimated Creatinine Clearance 11 ml/min; Glucose 78 mg/dl (70-99); Magnesium 2.1 mg/dl (1.6-2.3); Potassium 3.8 mmol/L (3.5-5.1); Sodium 128 mmol/L (135-145); eGFR 8.89
[2023-11-27 08:13] LABS: Glucose - Point of Care 78 mg/dl (70-99)
[2023-11-27] MEDS: NOVOLOG FLEXPEN SC (08:21)
[2023-11-27] MEDS: ZETIA 10 MG PO (08:22)
[2023-11-27] MEDS: LOW STRENGTH ASPIRIN 81 MG PO (08:22)
[2023-11-27] MEDS: PROTONIX 40 MG PO (08:22)
[2023-11-27] MEDS: MAGNESIUM OXIDE 500 MG PO (08:22)
[2023-11-27] MEDS: LOPRESSOR 25 MG PO ×2 (08:22→21:38)
--- NOTE | 2023-11-27 08:25 | W.PN.INTV ---
Today's Communication / Plan
Recommendations
Discontinue insulin drip
Start Lantus
Insulin sliding scale
Transition to prednisone
Wean off oxygen
Continue peritoneal dialysis
Discontinue heparin drip after this bag, continue Coumadin. Follow INR.
Transferred to IMU.
Pulmonary will follow
Assessment
-
Assessment:
Mr Blair Thakkar is a 63/M adm 11-12 with confusion and EV edema. Known h/o CKD on PD, recently not able to do PD himself due to confusion, did. At ER, confused, hypoxemic. Seen by Neurology, no acute findings on CT and MRI brain. Seen by
Renal, resumed PD soon after adm. VTach episode on night 11-16, received IV Mag with resolution. VTach returned on early afternoon 11-17, started Mag IV infusion, MS continued deteriorating, became unresponsive, VTach deteriorated to TDP, then
VFib, shock at 360K x1, developed PEA, received 3 doses epinephrine, total CPR time about 3 min with ROSC, intubated by anesthesia with no reported difficulty
Impression:
Acute hypoxemic respiratory failure: Bilateral infiltrates
Differential diagnosis includes pulmonary edema/inflammatory pneumonitis/less likely infectious
Cardiac arrest 11-17-23
VTach, TDP, VFib, PEA
Low normal serum Mg on 11-16 and given IV Mag on 11-16 and also 11-17 (Mg was running at time of arrest)
Conditions MANAGER CLINICAL:
CKD on PD
CAD s/p CABG
PVD s/p bilateral EV stenting
Emergent stenting RLE Jun 2021 ()
DM
HTN
HLD
Depression
Obesity

Plan:
11/21/2023: Transferred back to the ICU with increased work of breathing necessitating noninvasive mechanical ventilation. Acute onset.
Chest x-ray at that time with mild pulmonary edema bilaterally.
CT chest 11/23/2023: Extensive bilateral groundglass opacities with subsegmental bibasilar atelectasis. No pulmonary embolism.
-
Recent for decompensation perhaps:cannot rule out aspiration with subsequent acute lung injury. Cannot rule out undifferentiated inflammatory pneumonitis: Patient has never been on amiodarone.
No antibiotics were given-no evidence for infection.
Right heart catheterization 11/24/2023: Not consistent with volume overload.
-
Oxygenation improving: Currently on mid flow 80 L.
Pulse ox 92%.
Increase activity as able-continue physical therapy/Occupational Therapy.
Speech evaluation noted: No overt aspiration. Continue with aspiration precautions.
chest x-ray 11/26/2023.Persistent bilateral infiltrates.
Will repeat chest x-ray as needed.
-
Continue systemic steroids on 11/23/2023 for possible inflammatory pneumonitis/acute lung injury.
Hyperglycemia improving-insulin drip discontinued.
Transition to prednisone 40 mg daily, slow taper. Will need pulmonary evaluation in the outpatient setting.
If there is no improvement, bronchoscopy with BAL. Since patient improving hold for now. If there is recurrence of bilateral infiltrates may need to reconsider.

VTach evening 11-16-no further episodes.
Low normal Mag, replaced IV at time of event
No gross e-lyte abnormalities at time of VTach, TDP, VFib/PEA
Status post cardiac arrest 11-17
Required intubation-CPR, 3 epi doses, shock x1 at 360. CPR for about 3 min till ROSC
Extubated 11/18/2023.
Continue to monitor electrolytes
Continue conveyor monitor.
Cardiology continues to follow.
-
Nephrology continues to follow.
Continue to attempt negative fluid balance via peritoneal dialysis.
-
Antibiotics discontinued 11/19/2023. No evidence for infection.
Restarted on cefepime 11/21/2023: No evidence for infection. Discontinued antibiotics.
All cultures were negative.
-
Hyperglycemia: Steroid-induced per
Restart Lantus
Insulin sliding scale
-
On chronic coumadin for h/o PVD s/p stents
Do not think this patient needs heparin/Coumadin bridge. Would finish his bag and discontinue heparin drip, Coumadin has been restarted.
Daily INR
Monitor for bleeding
-
Transfer to IMU.
Critical care team will sign off.
Pulmonary will follow

Diagnostic tests:
CXR -- pm: interim intubation and GT. pulm vasc and parenchymal congestion.
CXR 01-05 and 24 AM, portable, improved pulm vasc and parenchymal congestion, sternotomy
TTE 11-17-23 (post cardiac arrest)
CONCLUSIONS
Limited study
Normal left ventricular chamber size. Mild concentric left ventricular
hypertrophy. Normal left ventricular systolic function. Left ventricular
ejection fraction is 50% by Grimaldo' s method. Diastology not assessed.
Since echocardiogram November 15, 2023 which was reviewed, there is no
significant change.
TTE 11-15-23
CONCLUSIONS
Normal left ventricular chamber size. Normal left ventricular systolic
function. Normal regional wall motion. Mild concentric left ventricular
hypertrophy. Left ventricular ejection fraction is 55-60% by visual estimate.
Diastolic function indeterminate due to atrial fibrillation.
Mildly thickened mitral valve leaflets. Mitral annular calcification. Mitral
valve opens normally. Trace mitral regurgitation.
Subjective Dataa
Subjective Data
Date of Service:
Date of Service: November 27, 2023
Chief Complaint: Cement Cutter Follow Up (Acute hypoxemic respiratory failure requiring noninvasive mechanical ventilation.)
Subjective:
Patient offers no new complaints.
Remains on mid flow oxygen
Denies phlegm production or hemoptysis
Insulin drip has been discontinued.
Review of Systems
General: Fever (n)
Cardiopulmonary: Dyspnea (none at rest), Cough (n), Sputum Production and Wheezing (n)
GI: Abdominal Pain (n) and Nausea (n)
Neuro: Headache (n)
Objective Data
Data Reviewed
Vital Signs / I&O / Oxygen:
Vital Signs
Temp Pulse Resp BP Pulse Ox
97.6 F 59 13 113/101 94
11/27/23 07:46 11/27/23 06:00 11/27/23 06:00 11/27/23 06:00 11/27/23 06:00
Intake and Output
11/26/23 11/27/23 11/28/23
06:59 06:59 06:59
Intake Total 888.6 / 1141.6 1113.8 / 1120.8
Output Total 1650 / 1650 150 / 150
Balance -761.4 / -508.4 963.8 / 970.8
SaO2 [NIV (Non Invasive 95
Ventilation)]
SaO2 [CPAP/PSV] 95
SaO2 [A/C] 96
SaO2 94
Nasal Cannula flow liters per 8
minute
Physical Exam
General: Respiratory Distress (mild with activity)
HEENT: Normocephalic and Moist Mucous Membranes
Cardiovascular: Regular Rhythm, Murmur (n) and Peripheral Edema (n)
Respiratory: Crackles and Stridor (n)
GI: Soft, Non Distended and Non Tender
Neurology: Awake, Alert, Oriented and No Motor Deficits
Skin: Dry
Labs/Micro/Reports
Lab Data
11/27/23 06:13
11/27/23 06:13
Laboratory Results
11/27/23
06:13
PT 15.9 H
INR 1.24
Microbiology
11/21/23 15:52 Blood/Venous Blood Culture - Final
No Growth - Final Report
[2023-11-27] MEDS: MIRALAX PO (08:26)
[2023-11-27] MEDS: LANTUS 0.299999999999999989 UNITS SC (09:27)
[2023-11-27] MEDS: NOVOLOG FLEXPEN-LOW RESISTANCE SC ×2 (09:27→12:20)
[2023-11-27] MEDS: DELTASONE 40 MG PO (09:30)
--- NOTE | 2023-11-27 09:56 | W.PN.HOSP.TC ---
Today's Communication/Plan
-
see bold
Assessment / Plan
Assessment / Plan
Gen: NAD, awake and alert, well-developed, well-nourished
Eyes: EOMI, PERRLA, no scleral icterus.
Neck: supple.
CV: Bradycardic, regular rhythm, +S1/S2, no m/r/g.
Resp: Patient reports he is unable to sit up. Anteriorly the patient has some faint left-sided Rales.
Abd: +BS, soft, NT, ND
Skin: No rashes.
Neuro: CN 2-12 intact, non-focal.
Psych: Normal mood and affect.
CT chest 11/23/23:
1). There is no pulmonary embolism
2).There is diffuse groundglass airspace disease throughout both lungs, most prominent at the lung bases without associated pleural effusions or overfilling of the pulmonary vasculature suggesting that this diffuse interstitial pneumonia such as may
be seen with COVID 19.
3). Moderate-large volume abdominal ascites
4). Postoperative changes with wire sternal sutures and mediastinal clips
CXR 11/26/23: Hazy patchy bibasilar opacification increased in comparison to most recent prior chest radiograph, possibly representing pneumonitis.
Acute hypoxic respiratory failure:
-After his prolonged hospital course and based on the evidence we have at hand, it appears etiology is acute lung injury due to acute interstitial pneumonia/inflammatory pneumonitis per pulm
-Was on IV dexamethasone, now transitioned to prednisone
-was on insulin drip for steroid-induced hyperglycemia, now transitioned to Lantus 30U/SSI
-Down to mid flow 8L O2 from High Flow Oxygen prior. Continue to titrate oxygen as able.
-No need for antibiotics
-Reviewed latest CT scan of the chest and all images during this hospital stay including today's cxr--> latest chest x-ray with bilateral opacities (disagree with radiology report rather than worsening it's pretty much the same).
-Discussed with tank stave assembler/pulmonary today on 11/27/22
ESRD on PD:
-Continue PD per nephrology. Nephrology following.
-Volume effectively coming off but would not be feasible upon discharge for either home (prob can not do it by himself) or SNF (would not be accepted).
-Would likely require conversion to hemodialysis but will defer to nephrology for timing
Cardiopulmonary arrest/CAD:
-VT/V Fib arrest on 11/17/23 with ROSC
-V. tach-->TDP-->V Fib-->PEA. CPR abt 3 min and Epinephrine x3. V Fib s/p shock 360J x1--> ROSC achieved.
-On aspirin, beta-blockers increased metoprolol 25 mg twice a day, on statin atorvastatin 40 mg p.o. nightly.
-Latest EKG if QTc is 450 which is an improvement from prior EKGs(>500's).
-Keep K above 4 and mag above 2
-Continue cardiac monitoring
-Right heart cath showed PCWP of 13 on 11/24/23
-Transthoracic echocardiogram--> EF 50%, mild concentric left ventricular hypertrophy, no significant changes from prior echo.
-Cardiology following
-Known history of CAD with CABG back in 1995.
-Plan for left heart cardiac cath next week if respiratory status stable and possible AICD.
Peripheral vascular disease:
-On aspirin, warfarin. On statins.
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
-was on Heparin drip, now transitioned to warfarin on 11/25/23 (no bridge needed)
-INR 1.24 today
Acute metabolic encephalopathy:
-Multifactorial in nature with uremia and hypoxemia but currently improving and back to his baseline.
-Head CT with impression of no acute intracranial abnormality but some chronic changes noted.
-MRI brain negative for acute stroke or pathology.
-Continue to monitor mental status.
Other problems:
Essential hypertension: cont BB
Atrial tachycardia: Continue BB
Chronic diastolic CHF: cont BB and maintenance of euvolemia via hemodialysis
Hypokalemia, resolved
Hypomagnesemia: cont PO Mg
Hyperlipidemia: cont statin/Zetia
Depression: Now off Zoloft to avoid prolonged QTc.
FULL/coumadin
Anticipated Discharge: > 48 hours
Subjective/Interval History
-
Date of Service: November 27, 2023
No new complaints.
Objective Data
-
Labs:
Laboratory Results
11/27/23
06:13
WBC 12.6 H
Hgb 9.9 L
Hct 29.4 L
Plt Count 199
PT 15.9 H
INR 1.24
APTT 77.0 H
Sodium 128 L
Potassium 3.8
Chloride 95 L
Carbon Dioxide 28
BUN 59 H
Creatinine 6.5 H*
Glucose 78
Calcium 8.1 L
Vital Signs:
Vital Signs
Temp Pulse Resp BP Pulse Ox
97.6 F 59 26 163/69 91
11/27/23 07:46 11/27/23 08:18 11/27/23 08:18 11/27/23 08:22 11/27/23 08:38
I&O
11/26/23 11/27/23 11/28/23
06:59 06:59 06:59
Intake Total 888.6 / 1141.6 1113.8 / 1120.8
Output Total 1650 / 1650 150 / 150 150 / 150
Balance -761.4 / -508.4 963.8 / 970.8 -136 / -136
--- NOTE | 2023-11-27 10:26 | W.PN.CARDCBS ---
Today's Communication / Plan
-
Stable from CV standpoint
Pending left heart catheterization once stable from pulmonary/nephrology standpoint
Peritoneal dialysis and electrolyte repletion
Impression / Plan
-
PCP: Dr. Susan Starkey
Cardiology: Unknown
Nephrology: [facility]
Vascular surgery: Dr. Sweeney
Impression:
Respiratory failure, multifactorial on Hiflo
In-hospital cardiac arrest 11/17/23
VT arrest
s/p shock x1 and Epi x1 11/17/23
Prolonged QT
Admitted with TME, uremia and anasarca 11/12/23
ESRD on PD
failing at home PD due to cognitive dysfunction
Elevated Troponin
CAD s/p CABG outside hospital 1995
Acute HFpEF, improving
Anasarca, improving
PAD
fem pop bypass 2015
right CEA at [facility] 03/2019
left CEA at [facility] 07/2019
right SFA ASSEMBLER PRODUCTION LINE 2020
Chronic warfarin OAC for PAD
DM 2
Echo 11/15/23: EF 55-60%, trace MR
Echo 11/17/23: LVEF 50% with mild LVH. No significant valve disease.
Cath: June 24, 2012 for atypical chest discomfort via right common femoral artery:
Aortic pressure: 141/64, mean of 95 mmHg. LVEDP of 12. Weight 102kh.
Coronary circulation: Mid LAD: 100% stenosis.
Mid circumflex: 100% stenosis
OM1: 100% stenosis with good blood supply to the distal myocardium from a graft.
Proximal RCA: Discrete 95% stenosis. Mid RCA with 95% stenosis.
Graft to the LAD: The graft was normal size sequential free radial from OCAMPO. Graft angiography showed minimal luminal irregularities.
Graft to the first diagonal: The graft was a OCAMPO, it was normal.
Graft to the first obtuse marginal: The graft was a OCAMPO from first diagonal. Graft angiography showed no evidence of disease.
Graft to the mid RCA: The graft was a FILIPE and it was normal.
Summary of outpatient cardiology records: EKG from June 29, 2023 showing sinus rhythm with right bundle branch block and secondary ST-T wave changes. He was last seen in the office on June 29, 2023 and did not repeat any active cardiac
complaints. They noted a history of proximal three-vessel coronary artery disease which led to coronary artery bypass grafting done in 1995 with a OCAMPO to diagonal 1 and obtuse marginal 3, FILIPE to mid RCA, radial conduit of the OCAMPO to diagonal 1
and sequentially to LAD. Heart catheterization was repeated on June 24, 2012 which showed patent bypass grafts however we do not have a detailed cath report.
-Bilateral carotid artery disease with right carotid endarterectomy on April 04, 2019 and left CEA in July 2019.
-Femoral to popliteal ASSEMBLER PRODUCTION LINE April 23, 2016, stenting of the right superficial femoral and popliteal arteries with angioplasty of the proximal right superficial femoral artery, angioplasty of the left superficial femoral artery with minimal residual
diffuse disease.
-Left Pharm pop ASSEMBLER PRODUCTION LINE angioplasty of multifocal superficial femoral artery in September 2012, ASSEMBLER PRODUCTION LINE of tibioperoneal trunk. Left popliteal artery stent was not placed because of concerns for stent fracture in September 2012.
-Last myocardial perfusion study on May 13, 2023 without evidence of ischemia, LVEF 51%
-Patient has chronic claudication complaints per outpatient notes with limited mobility and has been maintained on chronic anticoagulation with warfarin.
Right heart cath 1 05/24/24: RA 8, 38/15, wedge 13, cardiac index 1.5
Plan:
From a cardiac standpoint, he seems stable. By right heart catheterization, his wedge is probably close to optimal. His SVR was high and cardiac index is relatively low. Targeting a slightly higher dry weight might be reasonable to improve
cardiac output. Continue current fluid removal by PD
Volume management per renal
Pulmonary following breathing improving
His QT interval is still relatively prolonged; repeat EKG with improved electrolytes, monitor on telemetry
Major issue at this time is oxygen requirement still requires high flow oxygen to maintain saturations related to pulmonary infiltrates which are not cardiogenic.
Defer decision regarding dialysis changes to nephrology
No new cardiac recommendations at this time.
He will need a left heart catheterization once his pulmonary status improves prior to discharge. After catheterization we can determine if ICD implantation is required.
HPI: Patient came to [facility] on 11/12/23 with increasing SOB after he had trouble keeping up with his home PD treatments and he was admitted with acute HF and volume overload, cardiology is now consulted after a VT arrest today. Patient was admitted
11/12/23 with anasarca, SOB and failing PD at home. 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 Patient and also noted increasing somnolence and some confusion which overall seemed to be
contributing to trouble with maintaining PD treatments at home resulting in weight gain and SOB. Weight was up at least 10 lbs on admission. Patient was admitted and seen by nephrology at , PD was restarted in the hospital. Patient had an echo
11/15/23 that showed a preserved EF. 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 Patient with hyperkalemia on admission that resolved with PD. QT was prolonged to
486 ms on ECG on admission 11/12/23 in the setting of RBBB, then 522 ms 11/16/23, then 543 ms this afternoon at 1330. Patient with a run of VT and confusion noted by nursing around 1330 today and magnesium rider ordered. Last magnesium level was 1.6 on
11/16/23. Patient then had sustained VT and cardiac arrest prompting code 9. Cardiology arrived with rest of the team. Patient undergoing CPR and received Epi x1 and shocked x1 with ROSC. Patient intubated by anesthesia team.
Progress Note - Patient Care Technician
Subjective
Date of Service: November 27, 2023
Patient seen and examined morning. No acute events overnight. Patient resting comfortably in bed. Patient reports he had an episode of tightness in the chest when getting up to the chair yesterday but has not had any further episodes today.
Telemetry demonstrates sinus rhythm with PACs, PAT, and PVCs. No sustained arrhythmias.
Objective
Labs:
11/27/23 06:13
11/27/23 06:13
Labs
Hgb 9.9 g/dL (13.0-18.0) L 11/27/23 06:13
Hct 29.4 % (39.0-52.0) L 11/27/23 06:13
Plt Count 199 10^3/uL (130-400) 11/27/23 06:13
PT 15.9 Sec (11.4-14.6) H 11/27/23 06:13
INR 1.24 11/27/23 06:13
APTT 77.0 Sec (23.4-35.0) H 11/27/23 06:13
Sodium 128 mmol/L (135-145) L 11/27/23 06:13
Potassium 3.8 mmol/L (3.5-5.1) 11/27/23 06:13
BUN 59 mg/dl (9-20) H 11/27/23 06:13
Creatinine 6.5 mg/dL (0.7-1.3) H* 11/27/23 06:13
Glucose 78 mg/dl (70-99) 11/27/23 06:13
Vital Signs and I&O:
Vital Signs
Temp Pulse Resp BP Pulse Ox
97.6 F 55 20 103/70 94
11/27/23 07:46 11/27/23 10:00 11/27/23 10:00 11/27/23 10:00 11/27/23 10:00
Vital Signs
Temp Pulse Resp BP Pulse Ox
97.6 F 55 20 103/70 94
11/27/23 07:46 11/27/23 10:00 11/27/23 10:00 11/27/23 10:00 11/27/23 10:00
Intake & Output
11/25/23 11/26/23 11/27/23 11/28/23
06:59 06:59 06:59 06:59
Intake Total 699.1 / 714.1 888.6 / 1141.6 1113.8 / 1120.8 268 / 268
Output Total 1300 / 1300 1650 / 1650 150 / 150 150 / 150
Balance -600.9 / -585.9 -761.4 / -508.4 963.8 / 970.8 118 / 118
Physical Exam
Physical Exam
GENERAL: no acute distress, on HF-NC, mild resp distress with activity
EYE: sclera anicteric
NECK: Supple, no JVD, no carotid bruit appreciated
ENT: normal nose, moist mucosal membranes
CARDIAC: Regular rate and rhythm, +S1/S2, no murmur, rubs, or gallops
CHEST/PULMONARY: Normal effort, clear breath sounds
ABDOMEN: Soft, PD in place
NEUROLOGICAL: Alert and oriented x3
SKIN: Warm and dry, no rash
PSYCH: Normal and appropriate interaction.
[2023-11-27 12:00] LABS: Glucose - Point of Care 183 mg/dl (70-99)
--- NOTE | 2023-11-27 12:04 | W.PN.NEPH.PH ---
Today's Communication / Plan
-
- changed PD bags to decrease UF even further
Assessment/Plan
-
Assessment
-ESRD on PD
-volume overload
-CHF
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
-PAD
-HTN
-edema
-CAD/CABG
-DM2
-Hyponatremia
-In-hospital cardiac arrest 11/17/23
-VT arrest
s/p shock x1 and Epi x1 11/17/23
Plan
-PD ordered, changed from 1.25 and 2.5 bags alternating bags, 2L q4h, weights significantly down from prior, patient endorsing [facility]
-PD flow sheet reviewed
-CT of chest notes new ground glass opacities (steroid initiated by pulmonary)
-there is a possibility that he will need to be converted to HD here depending on volume status and for home discharge planning. discussed with patient today and he is amenable to the change
-Hemodynamically stable
-replete K as needed
-
-
Date of Service: November 27, 2023
CC / HPI / ROS
-
Chief Complaint:
ESRD
History of Present Illness:
PD in progress
s/p code 9 with VT 11/17/23
on high flow O2 and remains on IV Decadron
Review of Systems:
no fever
no CP
sob today
Weights stable
Labs
-
Labs:
WBC 12.6 10^3/uL (4.8-10.8) H 11/27/23 06:13
RBC 3.37 10^6/uL (4.70-6.10) L 11/27/23 06:13
Hgb 9.9 g/dL (13.0-18.0) L 11/27/23 06:13
Hct 29.4 % (39.0-52.0) L 11/27/23 06:13
Plt Count 199 10^3/uL (130-400) 11/27/23 06:13
Sodium 128 mmol/L (135-145) L 11/27/23 06:13
Potassium 3.8 mmol/L (3.5-5.1) 11/27/23 06:13
Chloride 95 mmol/L (98-107) L 11/27/23 06:13
Carbon Dioxide 28 mmol/L (22-30) 11/27/23 06:13
BUN 59 mg/dl (9-20) H 11/27/23 06:13
Creatinine 6.5 mg/dL (0.7-1.3) H* 11/27/23 06:13
eGFR 8.89 11/27/23 06:13
Glucose 78 mg/dl (70-99) 11/27/23 06:13
Calcium 8.1 mg/dl (8.4-10.2) L 11/27/23 06:13
Phosphorus 3.4 mg/dl (2.5-4.5) 11/22/23 04:43
Ypv-R-Tmjsnoekstq Pept > 20867 pg/ml 11/24/23 04:51
Albumin 2.7 g/dl (3.5-5.0) L 11/12/23 13:11
Physical Exam
-
Vital Signs:
Vital Signs
Temp Pulse Resp BP Pulse Ox
97.6 F 55 13 129/48 94
11/27/23 11:18 11/27/23 11:00 11/27/23 11:00 11/27/23 11:00 11/27/23 10:00
Cardiovascular:: Regular rate and rhythm
Respiratory:: Bilateral: Coarse
Lung Excursion:: Normal
Abdomen:: Distended
Bowel Sounds:: Normal
Extremity Edema:: None: Bilateral:
Sweeney Catheter: No
--- NOTE | 2023-11-27 12:24 | PTCARENOTE ---
No change in patient's assessment. Patient if off insulin gtt, not a great appetite, bathed patient and PCT shaved patient. Obtained EKG per AM orders. Patient now downgraded to IMU. Verified order for alternating PD dialysate.
[2023-11-27] MEDS: NOVOLOG FLEXPEN-LOW RESISTANCE 2 UNITS SC (15:41)
[2023-11-27 15:55] LABS: Glucose - Point of Care 204 mg/dl (70-99)
[2023-11-27] MEDS: HEPARIN 25000 UNITS/250 ML IV (17:08)
[2023-11-27] MEDS: COUMADIN 4 MG PO (17:09)
[2023-11-27] MEDS: LIPITOR 40 MG PO (21:38)
[2023-11-27 21:51] LABS: Glucose - Point of Care 318 mg/dl (70-99)
[2023-11-27] MEDS: ROXICODONE 10 MG PO (22:29)
[2023-11-27] MEDS: NOVOLOG FLEXPEN 10 UNITS SC (22:29)
--- NOTE | 2023-11-27 22:56 | PTCARENOTE ---
Assumed care of pt at 1900. Pt is A/O x4, pleasant and cooperative with care, flat affect noted. Currently IMU level of care. Received pt on heparin infusion at 700 units/hr, pt has been therapeutic and therefore only AM PTT draws. SR 60s on monitor
with BBB noted, currently on MFNC at 8LPM with SpO2 98-99%. Physical assessment completed, see nursing shift assessment flowsheet for full details. Peritoneal dialysis ongoing, see flowsheet for details. Call lin and personal items within reach.
[2023-11-28] VITALS (18 sets, daily range): BP systolic 53–179; BP diastolic 29–95; BMI 27.4
[2023-11-28] MEDS: XANAX 0.5 MG PO ×2 (02:26→16:53)
[2023-11-28 04:44] LABS: INR 1.55; PT 18.8 Sec (11.4-14.6)
[2023-11-28 04:46] LABS: APTT 80.4 Sec (23.4-35.0)
[2023-11-28] MEDS: DUONEB 3 ML INH (06:16)
--- NOTE | 2023-11-28 06:25 | PTCARENOTE ---
Pt's O2 requirements have been increasing throughout the night, started on 8L MFNC, needed to be increased to 10L when sats were 86-87% consistently, then to 12L. SpO2 seemed to improve after dialysate was drained from patient, but once reinstilled
his sats dropped again. Eventually ended up needing 15L midflow, respiratory notified and came to assess patient, recommended duoneb. Text page sent to Romero GALLAGHER who ordered PRN duoneb, administered at approx 0615. Pt then verbalized that he felt
better, SpO2 immediately after was in high 90s. Attempted to wean O2 but SpO2 dropped again, back to 15L at this time. Pt's RR is in low/mid 20s, unlabored, pt in no apparent distress.
--- NOTE | 2023-11-28 08:00 | PTCARENOTE ---
Received patient back from neonatal nurse. Patient is somnolent this morning, arousable, generally feels unwell. He is back on 15L of midflow nasal cannula, saturating in low 80s. Applied NRB and encouraged patient to sit up and take some deep
breaths. Patient seems generally depressed. Sinus judi on monitor. Due to drain PD at 0810. Patient remains oliguric, poor appetite, will text hospitalist about prandial coverage if patient decides to eat. Patient is able to make needs known,
call lin within reach.
[2023-11-28] MEDS: DELTASONE 40 MG PO (08:13)
[2023-11-28] MEDS: ZETIA 10 MG PO (08:13)
[2023-11-28] MEDS: LANTUS 0.299999999999999989 UNITS SC (08:13)
[2023-11-28] MEDS: LOW STRENGTH ASPIRIN 81 MG PO (08:13)
[2023-11-28] MEDS: NOVOLOG FLEXPEN-LOW RESISTANCE 1 UNITS SC (08:13)
[2023-11-28] MEDS: PROTONIX 40 MG PO (08:13)
[2023-11-28] MEDS: MIRALAX PO (08:14)
[2023-11-28] MEDS: MAGNESIUM OXIDE 500 MG PO (08:14)
[2023-11-28] MEDS: LOPRESSOR 25 MG PO ×2 (08:14→21:10)
[2023-11-28 08:23] LABS: Glucose - Point of Care 199 mg/dl (70-99)
[2023-11-28] MEDS: ROXICODONE 10 MG PO ×2 (08:30→23:51)
--- NOTE | 2023-11-28 09:12 | W.PN.INTV ---
Today's Communication / Plan
Recommendations
Check chest x-ray, if worsening infiltrates then will restart IV corticosteroids.
Currently on prednisone 40 mg per
Continue to observe off antibiotics
Fluid balance negative via peritoneal dialysis
Assessment
-
Assessment:
Mr Blair Thakkar is a 63/M adm 11-12 with confusion and EV edema. Known h/o CKD on PD, recently not able to do PD himself due to confusion, did. At ER, confused, hypoxemic. Seen by Neurology, no acute findings on CT and MRI brain. Seen by
Renal, resumed PD soon after adm. VTach episode on night 11-16, received IV Mag with resolution. VTach returned on early afternoon 11-17, started Mag IV infusion, MS continued deteriorating, became unresponsive, VTach deteriorated to TDP, then
VFib, shock at 360K x1, developed PEA, received 3 doses epinephrine, total CPR time about 3 min with ROSC, intubated by anesthesia with no reported difficulty
Impression:
Acute hypoxemic respiratory failure: Bilateral infiltrates
Differential diagnosis includes pulmonary edema/inflammatory pneumonitis/less likely infectious
Cardiac arrest 11-17-23
VTach, TDP, VFib, PEA
Low normal serum Mg on 11-16 and given IV Mag on 11-16 and also 11-17 (Mg was running at time of arrest)
Conditions CAN WORKER:
CKD on PD
CAD s/p CABG
PVD s/p bilateral EV stenting
Emergent stenting RLE Jun 2021 ()
DM
HTN
HLD
Depression
Obesity

Plan:
11/21/2023: Transferred back to the ICU with increased work of breathing necessitating noninvasive mechanical ventilation. Acute onset.
Chest x-ray at that time with ? mild pulmonary edema bilaterally.
CT chest 11/23/2023: Extensive bilateral groundglass opacities with subsegmental bibasilar atelectasis. No pulmonary embolism.
-
Recent for decompensation perhaps:cannot rule out aspiration with subsequent acute lung injury. Cannot rule out undifferentiated inflammatory pneumonitis: Patient has never been on amiodarone.
No antibiotics were given-no evidence for infection.
Right heart catheterization 11/24/2023: Not consistent with volume overload.
Responding to steroids.
-
Was able to wean down to mid flow 8 L. Overnight 11/28/2023 with increased oxygen requirement to 15 L.
-Repeat chest x-ray today 11/28/2023.
-
continue physical therapy/Occupational Therapy.
Speech evaluation noted: No overt aspiration. Continue with aspiration precautions.
chest x-ray 11/26/2023.Persistent bilateral infiltrates.
-
Continue systemic steroids on 11/23/2023 for possible inflammatory pneumonitis/acute lung injury.
Hyperglycemia improving-insulin drip discontinued.
He was transitioned to prednisone on 11/27/2019 for 40 mg. If chest x-ray appears worse may need to intensify to IV corticosteroids today 11/28/2023.
-
If there is no improvement, bronchoscopy with BAL. Since patient improving hold for now. If there is recurrence of bilateral infiltrates may need to reconsider.

VTach evening 11-16-no further episodes.
Low normal Mag, replaced IV at time of event
No gross e-lyte abnormalities at time of VTach, TDP, VFib/PEA
Status post cardiac arrest 11-17
Required intubation-CPR, 3 epi doses, shock x1 at 360. CPR for about 3 min till ROSC
Extubated 11/18/2023.
Continue to monitor electrolytes
Continue flagstone layer.
Cardiology continues to follow.
-
Nephrology continues to follow.
Continue to attempt negative fluid balance via peritoneal dialysis.
-
Antibiotics discontinued 11/19/2023. No evidence for infection.
Restarted on cefepime 11/21/2023: No evidence for infection. Discontinued antibiotics.
All cultures were negative.
-
Hyperglycemia: Steroid-induced per
Insulin drip has been discontinued since 11/26/2023.
Continue Lantus Lantus
Insulin sliding scale
-
On chronic coumadin for h/o PVD s/p stents
Continue Coumadin. Follow INR.
Discontinue heparin drip
Daily INR
Monitor for bleeding
-
Pulmonary will continue to follow.

Diagnostic tests:
CXR -08-31 pm: interim intubation and GT. pulm vasc and parenchymal congestion.
CXR 01- and 08-31 AM, portable, improved pulm vasc and parenchymal congestion, sternotomy
TTE 11-17-23 (post cardiac arrest)
CONCLUSIONS
Limited study
Normal left ventricular chamber size. Mild concentric left ventricular
hypertrophy. Normal left ventricular systolic function. Left ventricular
ejection fraction is 50% by Grimaldo' s method. Diastology not assessed.
Since echocardiogram November 15, 2023 which was reviewed, there is no
significant change.
TTE 11-15-23
CONCLUSIONS
Normal left ventricular chamber size. Normal left ventricular systolic
function. Normal regional wall motion. Mild concentric left ventricular
hypertrophy. Left ventricular ejection fraction is 55-60% by visual estimate.
Diastolic function indeterminate due to atrial fibrillation.
Mildly thickened mitral valve leaflets. Mitral annular calcification. Mitral
valve opens normally. Trace mitral regurgitation.
Subjective Dataa
Subjective Data
Date of Service:
Date of Service: November 28, 2023
Chief Complaint: Service Writer Advisor Follow Up (Acute hypoxemic respiratory failure requiring noninvasive mechanical ventilation.)
Subjective:
Patient offers no new complaints
Increased oxygen requirements overnight
Denies any phlegm production or hemoptysis.
Review of Systems
General: Fever (n)
Cardiopulmonary: Dyspnea (none at rest)
GI: Abdominal Pain (n)
Objective Data
Data Reviewed
Vital Signs / I&O / Oxygen:
Vital Signs
Temp Pulse Resp BP Pulse Ox
97.4 F 64 15 139/54 91
11/28/23 01:55 11/28/23 08:14 11/28/23 06:14 11/28/23 08:14 11/28/23 06:14
Intake and Output
11/27/23 11/28/23 11/29/23
06:59 06:59 06:59
Intake Total 1113.8 / 1120.8 1044 / 1044 207 / 207
Output Total 150 / 150 500 / 500
Balance 963.8 / 970.8 544 / 544 207 / 207
SaO2 [NIV (Non Invasive 95
Ventilation)]
SaO2 [CPAP/PSV] 95
SaO2 [A/C] 96
SaO2 91
Nasal Cannula flow liters per 8
minute
Physical Exam
General: Respiratory Distress (mild with activity)
HEENT: Normocephalic and Moist Mucous Membranes
Cardiovascular: Regular Rhythm, Murmur (n) and Peripheral Edema (n)
Respiratory: Crackles and Stridor (n)
GI: Soft, Non Distended and Non Tender
Neurology: Awake, Alert, Oriented and No Motor Deficits
Skin: Dry
Labs/Micro/Reports
Laboratory Results
11/28/23
03:58
PT 18.8 H
INR 1.55
APTT 80.4 H
Microbiology
11/21/23 15:52 Blood/Venous Blood Culture - Final
No Growth - Final Report
[2023-11-28 09:35] LABS: Hematocrit 31.6 % (39.0-52.0); Hemoglobin 10.5 g/dL (13.0-18.0); Mean Corp Hgb Conc. 33.2 g/dL (33.0-37.0); Mean Corpuscular Hgb 29.2 pg (27.0-31.0); Mean Corpuscular Volume 87.8 fL (80.0-94.0); Mean Platelet Volume 11.3 fL (7.4-10.4); Platelet Count 188 10^3/uL (130-400); Red Cell Dist. Width 15.2 % (11.5-14.5); White Blood Cell Count 11.9 10^3/uL (4.8-10.8)
[2023-11-28] MEDS: ANESTHETIC LOZENGE 1 LOZENGE PO (10:21)
[2023-11-28 10:33] LABS: Blood Urea Nitrogen 67 mg/dl (9-20); Calcium 7.9 mg/dl (8.4-10.2); Carbon Dioxide 27 mmol/L (22-30); Chloride 92 mmol/L (98-107); Estimated Creatinine Clearance 11 ml/min; Glucose 188 mg/dl (70-99); Potassium 3.6 mmol/L (3.5-5.1); Sodium 127 mmol/L (135-145); eGFR 8.42
--- NOTE | 2023-11-28 12:10 | W.PN.NEPH.PH ---
Today's Communication / Plan
-
- changed to all 2.5% bags
Assessment/Plan
-
Assessment
-ESRD on PD
-volume overload
-CHF
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
-PAD
-HTN
-edema
-CAD/CABG
-DM2
-Hyponatremia
-In-hospital cardiac arrest 11/17/23
-VT arrest
s/p shock x1 and Epi x1 11/17/23
Plan
-PD ordered, changed from 1.25 and 2.5 bags alternating bags to 2.5% bags only, 2L q4h, weights significantly down from prior, patient endorsing feeling lightheaded with standing and [facility] notes PCWP of 13. Oxygenation worsened on 11/28 so bag to 2.5%
bags
-PD flow sheet reviewed
-CT of chest notes new ground glass opacities (steroid initiated by pulmonary)
-there is a possibility that he will need to be converted to HD here depending on volume status and for home discharge planning. discussed with patient and he is amenable to the change
-Hemodynamically stable
-replete K as needed
-
-
Date of Service: November 28, 2023
CC / HPI / ROS
-
Chief Complaint:
ESRD
History of Present Illness:
PD in progress
s/p code 9 with VT 11/17/23
on high flow O2 and remains on IV Decadron
Review of Systems:
no fever
no CP
sob today
Weights stable
Labs
-
Labs:
WBC 11.9 10^3/uL (4.8-10.8) H 11/28/23 09:18
RBC 3.60 10^6/uL (4.70-6.10) L 11/28/23 09:18
Hgb 10.5 g/dL (13.0-18.0) L 11/28/23 09:18
Hct 31.6 % (39.0-52.0) L 11/28/23 09:18
Plt Count 188 10^3/uL (130-400) 11/28/23 09:18
Sodium 127 mmol/L (135-145) L 11/28/23 09:18
Potassium 3.6 mmol/L (3.5-5.1) 11/28/23 09:18
Chloride 92 mmol/L (98-107) L 11/28/23 09:18
Carbon Dioxide 27 mmol/L (22-30) 11/28/23 09:18
BUN 67 mg/dl (9-20) H 11/28/23 09:18
Creatinine 6.8 mg/dL (0.7-1.3) H* 11/28/23 09:18
eGFR 8.42 11/28/23 09:18
Glucose 188 mg/dl (70-99) H 11/28/23 09:18
Calcium 7.9 mg/dl (8.4-10.2) L 11/28/23 09:18
Phosphorus 3.4 mg/dl (2.5-4.5) 11/22/23 04:43
Aeo-N-Esfpuxarltb Pept > 77987 pg/ml 11/24/23 04:51
Albumin 2.7 g/dl (3.5-5.0) L 11/12/23 13:11
Physical Exam
-
Vital Signs:
Vital Signs
Temp Pulse Resp BP Pulse Ox
97.6 F 58 6 151/64 93
11/28/23 10:04 11/28/23 10:00 11/28/23 10:00 11/28/23 10:00 11/28/23 10:00
Cardiovascular:: Regular rate and rhythm
Respiratory:: Bilateral: CTA
Lung Excursion:: Normal
Abdomen:: Nontender and Soft
Bowel Sounds:: Normal
Extremity Edema:: +1: Bilateral:
Sweeney Catheter: No
[2023-11-28] MEDS: NOVOLOG FLEXPEN-LOW RESISTANCE 2 UNITS SC (12:54)
[2023-11-28 13:04] LABS: Glucose - Point of Care 204 mg/dl (70-99)
--- NOTE | 2023-11-28 13:40 | W.PN.HOSP.TC ---
Today's Communication/Plan
-
see bold
Assessment / Plan
Assessment / Plan
Gen: NAD, awake and alert, well-developed, well-nourished
Eyes: EOMI, PERRLA, no scleral icterus.
Neck: supple.
CV: remains Bradycardic, regular rhythm, +S1/S2, no m/r/g.
Resp: CTAB anteriorly
Abd: remains +BS, soft, NT, ND
Skin: No rashes.
Neuro: CN 2-12 intact, non-focal.
Psych: Normal mood and affect.
CT chest 11/23/23:
1). There is no pulmonary embolism
2).There is diffuse groundglass airspace disease throughout both lungs, most prominent at the lung bases without associated pleural effusions or overfilling of the pulmonary vasculature suggesting that this diffuse interstitial pneumonia such as may
be seen with COVID 19.
3). Moderate-large volume abdominal ascites
4). Postoperative changes with wire sternal sutures and mediastinal clips
CXR 11/26/23: Hazy patchy bibasilar opacification increased in comparison to most recent prior chest radiograph, possibly representing pneumonitis.
CXR 11/28/23: Worsening diffuse interstitial pneumonia.
Acute hypoxic respiratory failure:
-After his prolonged hospital course and based on the evidence we have at hand, it appears etiology is acute lung injury due to acute interstitial pneumonia/inflammatory pneumonitis per pulm
-Was on IV dexamethasone, now transitioned to prednisone
-was on insulin drip for steroid-induced hyperglycemia, now transitioned to Lantus 30U/SSI. Start 4U premeal aspart.
-was down to mid flow 8L O2 on 11/27/23 from High Flow Oxygen prior. Now on 15L midflow.
-No need for antibiotics
-Reviewed latest CT scan of the chest and all images during this hospital stay including today's cxr--> latest chest x-ray with bilateral opacities (disagree with radiology report rather than worsening it's pretty much the same).
-Discussed with comparator operator/pulmonary today on 11/27/22
ESRD on PD:
-Continue PD per nephrology. Nephrology following.
-Volume effectively coming off but would not be feasible upon discharge for either home (prob can not do it by himself) or SNF (would not be accepted).
-Would likely require conversion to hemodialysis but will defer to nephrology for timing
Cardiopulmonary arrest/CAD:
-VT/V Fib arrest on 11/17/23 with ROSC
-V. tach-->TDP-->V Fib-->PEA. CPR abt 3 min and Epinephrine x3. V Fib s/p shock 360J x1--> ROSC achieved.
-On aspirin, beta-blockers increased metoprolol 25 mg twice a day, on statin atorvastatin 40 mg p.o. nightly.
-Latest EKG if QTc is 450 which is an improvement from prior EKGs(>500's).
-Keep K above 4 and mag above 2
-Continue cardiac monitoring
-Right heart cath showed PCWP of 13 on 11/24/23
-Transthoracic echocardiogram--> EF 50%, mild concentric left ventricular hypertrophy, no significant changes from prior echo.
-Cardiology following
-Known history of CAD with CABG back in 1995.
-Plan for left heart cardiac cath next week if respiratory status stable and possible AICD.
Peripheral vascular disease:
-On aspirin, warfarin. On statins.
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
-was on Heparin drip, now transitioned to warfarin on 11/25/23 (no bridge needed)
-INR 1.24 today
Acute metabolic encephalopathy:
-Multifactorial in nature with uremia and hypoxemia but currently improving and back to his baseline.
-Head CT with impression of no acute intracranial abnormality but some chronic changes noted.
-MRI brain negative for acute stroke or pathology.
-Continue to monitor mental status.
Other problems:
Essential hypertension: cont BB
Atrial tachycardia: Continue BB
Chronic diastolic CHF: cont BB and maintenance of euvolemia via hemodialysis
Hypokalemia, resolved
Hypomagnesemia: cont PO Mg
Hyperlipidemia: cont statin/Zetia
Depression: Now off Zoloft to avoid prolonged QTc.
FULL/coumadin
Anticipated Discharge: > 48 hours
Subjective/Interval History
-
Date of Service: November 28, 2023
No new complaints.
Objective Data
-
Labs:
Laboratory Results
11/28/23 11/28/23
03:58 09:18
WBC 11.9 H
Hgb 10.5 L
Hct 31.6 L
Plt Count 188
PT 18.8 H
INR 1.55
APTT 80.4 H
Sodium 127 L
Potassium 3.6
Chloride 92 L
Carbon Dioxide 27
BUN 67 H
Creatinine 6.8 H*
Glucose 188 H
Calcium 7.9 L
Vital Signs:
Vital Signs
Temp Pulse Resp BP Pulse Ox
97.4 F 58 6 151/64 93
11/28/23 13:06 11/28/23 10:00 11/28/23 10:00 11/28/23 10:00 11/28/23 10:00
I&O
11/27/23 11/28/23 11/29/23
06:59 06:59 06:59
Intake Total 1113.8 / 1120.8 1044 / 1044
Output Total 150 / 150 500 / 500
Balance 963.8 / 970.8 544 / 544
--- NOTE | 2023-11-28 14:02 | W.PN.CARDCBS ---
Today's Communication / Plan
-
Stable from CV standpoint; volume status improved
Pending left heart catheterization once stable from pulmonary/nephrology standpoint; due to increased O2 requirements, will continue to follow
Peritoneal dialysis and electrolyte repletion
Impression / Plan
-
PCP: Dr. Susan Starkey
Cardiology: Unknown
Nephrology: [facility]
Vascular surgery: Dr. Sweeney
Impression:
Respiratory failure, worsening today, O2 requirements increased to high-flow
In-hospital cardiac arrest 11/17/23
VT arrest
s/p shock x1 and Epi x1 11/17/23
Prolonged QT
Admitted with TME, uremia and anasarca 11/12/23
ESRD on PD
failing at home PD due to cognitive dysfunction
Elevated Troponin
CAD s/p CABG outside hospital 1995
Acute HFpEF, improving
Anasarca, improving
PAD
fem pop bypass 2015
right CEA at [facility] 03/2019
left CEA at [facility] 07/2019
right SFA METAL COATER OPERATOR 2020
Chronic warfarin OAC for PAD
DM 2
Echo 11/15/23: EF 55-60%, trace MR
Echo 11/17/23: LVEF 50% with mild LVH. No significant valve disease.
Cath: June 24, 2012 for atypical chest discomfort via right common femoral artery:
Aortic pressure: 141/64, mean of 95 mmHg. LVEDP of 12. Weight 102kh.
Coronary circulation: Mid LAD: 100% stenosis.
Mid circumflex: 100% stenosis
OM1: 100% stenosis with good blood supply to the distal myocardium from a graft.
Proximal RCA: Discrete 95% stenosis. Mid RCA with 95% stenosis.
Graft to the LAD: The graft was normal size sequential free radial from OCAMPO. Graft angiography showed minimal luminal irregularities.
Graft to the first diagonal: The graft was a OCAMPO, it was normal.
Graft to the first obtuse marginal: The graft was a OCAMPO from first diagonal. Graft angiography showed no evidence of disease.
Graft to the mid RCA: The graft was a FILIPE and it was normal.
Summary of outpatient cardiology records: EKG from June 29, 2023 showing sinus rhythm with right bundle branch block and secondary ST-T wave changes. He was last seen in the office on June 29, 2023 and did not repeat any active cardiac
complaints. They noted a history of proximal three-vessel coronary artery disease which led to coronary artery bypass grafting done in 1995 with a OCAMPO to diagonal 1 and obtuse marginal 3, FILIPE to mid RCA, radial conduit of the OCAMPO to diagonal 1
and sequentially to LAD. Heart catheterization was repeated on June 24, 2012 which showed patent bypass grafts however we do not have a detailed cath report.
-Bilateral carotid artery disease with right carotid endarterectomy on April 04, 2019 and left CEA in July 2019.
-Femoral to popliteal METAL COATER OPERATOR April 23, 2016, stenting of the right superficial femoral and popliteal arteries with angioplasty of the proximal right superficial femoral artery, angioplasty of the left superficial femoral artery with minimal residual
diffuse disease.
-Left Pharm pop METAL COATER OPERATOR angioplasty of multifocal superficial femoral artery in September 2012, METAL COATER OPERATOR of tibioperoneal trunk. Left popliteal artery stent was not placed because of concerns for stent fracture in September 2012.
-Last myocardial perfusion study on May 13, 2023 without evidence of ischemia, LVEF 51%
-Patient has chronic claudication complaints per outpatient notes with limited mobility and has been maintained on chronic anticoagulation with warfarin.
Right heart cath 1 05/24/24: RA 8, 38/15, wedge 13, cardiac index 1.5
Plan:
From a cardiac standpoint, he seems stable. By right heart catheterization, his wedge is probably close to optimal. His SVR was high and cardiac index is relatively low. Targeting a slightly higher dry weight might be reasonable to improve
cardiac output. Continue current fluid removal by PD
Volume management per renal; possible transition to HD, discussion ongoing
Pulmonary following; worsening O2 requirement
His QT interval is still relatively prolonged; repeat EKG with improved electrolytes, monitor on telemetry
Major issue at this time is oxygen requirement still requires high flow oxygen (worsening today) to maintain saturations related to pulmonary infiltrates which are not cardiogenic.
Defer decision regarding dialysis changes to nephrology
No new cardiac recommendations at this time.
He will need a left heart catheterization once his pulmonary status improves prior to discharge. After catheterization, further discussion regarding candidacy of ICD
HPI: Patient came to [facility] on 11/12/23 with increasing SOB after he had trouble keeping up with his home PD treatments and he was admitted with acute HF and volume overload, cardiology is now consulted after a VT arrest today. Patient was admitted
11/12/23 with anasarca, SOB and failing PD at home. Patient lives in [place] and follows with a ice cream freezer assistant at [facility], but came to for care. Patient and also noted increasing somnolence and some confusion which overall seemed to be
contributing to trouble with maintaining PD treatments at home resulting in weight gain and SOB. Weight was up at least 10 lbs on admission. Patient was admitted and seen by nephrology at , PD was restarted in the hospital. Patient had an echo
11/15/23 that showed a preserved EF. There is a h/o CABG at an outside hospital in 1995, primary plant utility person unknown and patient has never seen cardiology at before. Patient with hyperkalemia on admission that resolved with PD. QT was prolonged to
486 ms on ECG on admission 11/12/23 in the setting of RBBB, then 522 ms 11/16/23, then 543 ms this afternoon at 1330. Patient with a run of VT and confusion noted by nursing around 1330 today and magnesium rider ordered. Last magnesium level was 1.6 on
11/16/23. Patient then had sustained VT and cardiac arrest prompting code 9. Cardiology arrived with rest of the team. Patient undergoing CPR and received Epi x1 and shocked x1 with ROSC. Patient intubated by anesthesia team.
Progress Note - Training Development Specialist
Subjective
Date of Service: November 28, 2023
Patient seen and examined's morning. No acute events overnight. Of note, patient on a higher nasal cannula flow due to increased oxygen requirements and desaturations. Denies chest pain, lightheadedness, dizziness near-syncope, or syncope.
Telemetry shows sinus rhythm PAT PVCs.
Objective
Labs:
11/28/23 09:18
11/28/23 09:18
Labs
Hgb 10.5 g/dL (13.0-18.0) L 11/28/23 09:18
Hct 31.6 % (39.0-52.0) L 11/28/23 09:18
Plt Count 188 10^3/uL (130-400) 11/28/23 09:18
PT 18.8 Sec (11.4-14.6) H 11/28/23 03:58
INR 1.55 11/28/23 03:58
APTT 80.4 Sec (23.4-35.0) H 11/28/23 03:58
Sodium 127 mmol/L (135-145) L 11/28/23 09:18
Potassium 3.6 mmol/L (3.5-5.1) 11/28/23 09:18
BUN 67 mg/dl (9-20) H 11/28/23 09:18
Creatinine 6.8 mg/dL (0.7-1.3) H* 11/28/23 09:18
Glucose 188 mg/dl (70-99) H 11/28/23 09:18
Vital Signs and I&O:
Vital Signs
Temp Pulse Resp BP Pulse Ox
97.4 F 58 6 151/64 93
11/28/23 13:06 11/28/23 10:00 11/28/23 10:00 11/28/23 10:00 11/28/23 10:00
Vital Signs
Temp Pulse Resp BP Pulse Ox
97.4 F 58 6 151/64 93
11/28/23 13:06 11/28/23 10:00 11/28/23 10:00 11/28/23 10:00 11/28/23 10:00
Intake & Output
11/26/23 11/27/23 11/28/2322/24
06:59 06:59 06:59 06:59
Intake Total 888.6 / 1141.6 1113.8 / 1120.8 1044 / 1044
Output Total 1650 / 1650 150 / 150 500 / 500
Balance -761.4 / -508.4 963.8 / 970.8 544 / 544
Physical Exam
Physical Exam
GENERAL: no acute distress, on HF-NC, mild resp distress with activity
EYE: sclera anicteric
NECK: Supple, no JVD, no carotid bruit appreciated
ENT: normal nose, moist mucosal membranes
CARDIAC: Regular rate and rhythm, +S1/S2, no murmur, rubs, or gallops
CHEST/PULMONARY: Normal effort, clear breath sounds
ABDOMEN: Soft, PD in place
NEUROLOGICAL: Alert and oriented x3
SKIN: Warm and dry, no rash
PSYCH: Normal and appropriate interaction.
--- NOTE | 2023-11-28 14:04 | W.PN.UPDATE ---
Update Note
Progress Note Update
Worsening oxygenation, worsening chest x-ray with tapering steroids.
Unclear whether prednisone is getting absorbed at this point.
Restart IV corticosteroids. Will need to monitor blood sugars closely. Might need to go back on insulin drip.
[2023-11-28] MEDS: SOLU-MEDROL PF 40 MG IV ×2 (16:43→23:38)
[2023-11-28] MEDS: COUMADIN 4 MG PO (16:54)
[2023-11-28] MEDS: NOVOLOG FLEXPEN-MODERATE RESISTANCE 3 UNITS SC (18:04)
[2023-11-28] MEDS: NOVOLOG FLEXPEN 4 UNITS SC (18:04)
[2023-11-28 18:19] LABS: Glucose - Point of Care 236 mg/dl (70-99)
[2023-11-28] MEDS: LIPITOR 40 MG PO (21:10)
[2023-11-28] MEDS: NOVOLOG FLEXPEN 6 UNITS SC (21:21)
[2023-11-28 21:25] LABS: Glucose - Point of Care 292 mg/dl (70-99)
--- NOTE | 2023-11-28 21:41 | PTCARENOTE ---
Assumed care of pt at 1900. Received pt on midflow NC 15LPM, SpO2 93-96%. Pt drowsy but easily arousable, A/O x4, flat affect noted. IMU level of care. Physical assessment completed, see nursing shift assessment flowsheet for full details. SR 60s on
monitor with BBB noted. Peritoneal dialysis Q4 hours ongoing.
[2023-11-29] VITALS (22 sets, daily range): BP systolic 87–199; BP diastolic 43–94; BMI 28.9
[2023-11-29 05:27] LABS: Hematocrit 29.8 % (39.0-52.0); Hemoglobin 9.9 g/dL (13.0-18.0); Mean Corp Hgb Conc. 33.2 g/dL (33.0-37.0); Mean Corpuscular Hgb 29.2 pg (27.0-31.0); Mean Corpuscular Volume 87.9 fL (80.0-94.0); Mean Platelet Volume 11.8 fL (7.4-10.4); Platelet Count 182 10^3/uL (130-400); Red Blood Cell Count 3.39 10^6/uL (4.70-6.10); White Blood Cell Count 11.7 10^3/uL (4.8-10.8)
[2023-11-29] MEDS: SOLU-MEDROL PF 40 MG IV ×4 (06:04→23:21)
[2023-11-29 06:07] LABS: Blood Urea Nitrogen 72 mg/dl (9-20); Calcium 7.7 mg/dl (8.4-10.2); Carbon Dioxide 29 mmol/L (22-30); Chloride 91 mmol/L (98-107); Estimated Creatinine Clearance 10 ml/min; Glucose 301 mg/dl (70-99); Magnesium 2.1 mg/dl (1.6-2.3); Potassium 4.3 mmol/L (3.5-5.1); Sodium 126 mmol/L (135-145); eGFR 8.28
[2023-11-29] MEDS: APRESOLINE 10 MG IV (06:18)
--- NOTE | 2023-11-29 06:39 | PTCARENOTE ---
Pt's BP around 0600 was reading in 190s--cuff had been switched from radial cuff to regular cuff and this was the first reading after cuff was switched. Switched back to radial cuff but BP was similar. Recycled BP at 0615 and BP still in 190s. PRN
dose of Hydralazine 10mg IV given, see MAR. Pt denies any headache or chest pain, asymptomatic, SR 60s/SB 50s on monitor which is pt's baseline.
[2023-11-29 07:58] LABS: Glucose - Point of Care 345 mg/dl (70-99)
--- NOTE | 2023-11-29 08:00 | PTCARENOTE ---
Assumed care of patient at 0645. Assessment completed and documented in shift assessment.
Patient currently on 15L Mid-Flow with NRB on top. SpO2 99%. Attempted to wean off NRB and patient's SpO2 dropped to 88%. Spoke with RT about transitioning back to HFNC.
RT set patient back on HFNC 50L 80%.
Patient also having higher glucose levels, BG 345 this AM. Likely in the setting of continuation of steroids. Adjustments made per primary team and pharmacist to patient's insulin regimen.
--- NOTE | 2023-11-29 08:11 | PN.DE.MGMTRT ---
Insulin Management
- -
11/18/2023 Diabetes Management Consult
Admitted 11/12 for R foot wound, confusion, SOB, swelling. PMH renal failure with peritoneal dialysis, HTN, PVD type 2 diabetes. Prior to admission chart reflects he was taking 60 units Basaglar daily with NovoLog 28 units BID. A1C 8.6%. Patient
had cardiac arrest 11/16 now intubated on mechanical ventilation and insulin infusion. Prior to this patient was receiving Lantus in AM with AC NovoLog at reduced doses.
Will continue glycemic protocol at this time. If patient is weaned off of ventilator will assess for readiness to transition to subcutaneous insulin.
11/19/2023: Diabetes Management F/U:
Pt extubated last evening. Doing well, sitting up in bed, offers no complaints.
Glucose trended up to 197, remains on glycemic protocol requiring 0.8-7 units of insulin/ hr while NPO.
Pt was taking 60 units Basaglar daily with NovoLog 28 units BID IT CONSULTING MANAGER.
Will transition off drip. Give Lantus 30 units NOW, turn drip off 1 hr after.
Start AC NovoLog 8 units and moderate corrective insulin with meals. Start 1800 ADA diet. Accucheks AC/HS
Will follow for further needed insulin adjustments. Plan of care d/w pt and Nurse.
11/22/2023: Diabetes Management F/U:
Pt transferred back to ICU for increased O2 requirements.
Currently NPO for R/LHC today. Premeal glucose trended up to 345 requiring 3-7 units of corrective insulin.
Will make no changes to regimen at this time, reassess after procedure and make necessary adjustments to insulin dose
11/23/2023 Diabetes Management Follow Up
Patient glucose controlled on current regimen, trended down to 79 @ HS. Will slightly decrease AM Lantus dose to 27 units to start Wednesday, 11/24.
Patient is NPO for procedure, will order one time dose of Lantus 15 units now.
11/24/2023 Diabetes Management Follow Up
Cardiac cath cancelled yesterday due to patient hypoxia. Dexamethasone 4 mg BID started last evening, glucose up to 460. Insulin administered. Fasting glucose 393. Glycemic protocol has been started. Will continue today and reassess in AM/
11/25/2023 Diabetes Management Follow up
Patient remains on steroids, glucose controlled on glycemic protocol requiring .8 to 10 units NovoLog per hour. He is eating meals and receiving supplemental insulin. Will continue glycemic protocol, assess in AM for readiness to transition to
subq regimen. I spoke with patient nurse.
11/26/2023: Diabetes Management F/U:
Patient remains on steroids- Dexa 4mg Q8hrs, continues on glycemic protocol, glucose range 89-219 requiring .5 to 12 units NovoLog per hour.
He is eating meals and receiving supplemental insulin.
Plan is to start steroid taper today, will continue glycemic protocol for now and reassess later today for readiness to transition to SQ insulin.
11/29/2023: Diabetes Management F/U:
Steroids were tapered down to Pred 40mg daily--> transitioned off CC glycemic protocol to SQ insulin over the weekend
Noted for worsening oxygenation--> resumed high dose IV steroids--> Hyperglycemia.
Pt resting in bed, offers no complaints. Glucose has remained elevated, FBG 301 this AM, premeal range 199 to 345, Dr. Lopez has increased his AC NovoLog dose to 8 units. Will increase Lantus to 35 units, 1st dose will be given tomorrow AM. Cont
current AC dose and corrective insulin with meals
Will closely follow and adjust insulin if necessary.
Diabetes History
- -
Type of Diabetes: 2 requiring insulin
Pre-Admission Diabetes Regimen
11/28/23 11/29/23
09:18 04:30
Creatinine 6.8 H* 6.9 H*
Lab Results
Hemoglobin A1c 8.6 % (4.0-5.6) H 11/13/23 06:09
Insulin Pump Settings
IP Diabetes Regimen
11/28/23 11/28/23 11/28/23
08:12 09:18 12:53
Glucose 188 H
POC Glucose 199 H 204 H
11/28/23 11/28/23 11/29/23
18:03 21:14 04:30
Glucose 301 H
POC Glucose 236 H 292 H
11/29/23
07:46
Glucose
POC Glucose 345 H
Patient Education
--- NOTE | 2023-11-29 08:41 | W.PN.CARDCBS ---
Today's Communication / Plan
-
Continue to follow INR
Check EKG in a.m. for QT interval
Eventual left heart cath when stable from pulmonary standpoint
After catheterization will need to determine best strategy for VT arrest in hospital
Impression / Plan
-
PCP: Dr. Susan Starkey
Cardiology: Unknown
Nephrology: [facility]
Vascular surgery: Dr. Sweeney
Impression:
Respiratory failure, worsening today, O2 requirements increased to high-flow
In-hospital cardiac arrest 11/17/23
VT arrest
s/p shock x1 and Epi x1 11/17/23
Prolonged QT
Admitted with TME, uremia and anasarca 11/12/23
ESRD on PD
failing at home PD due to cognitive dysfunction
Elevated Troponin
CAD s/p CABG outside hospital 1995
Acute HFpEF, improving
Anasarca, improving
PAD
fem pop bypass 2015
right CEA at [place] 03/2019
left CEA at [place] 07/2019
right SFA LOCATION MAN 2020
Chronic warfarin OAC for PAD
DM 2
Echo 11/15/23: EF 55-60%, trace MR
Echo 11/17/23: LVEF 50% with mild LVH. No significant valve disease.
Cath: June 24, 2012 for atypical chest discomfort via right common femoral artery:
Aortic pressure: 141/64, mean of 95 mmHg. LVEDP of 12. Weight 102kh.
Coronary circulation: Mid LAD: 100% stenosis.
Mid circumflex: 100% stenosis
OM1: 100% stenosis with good blood supply to the distal myocardium from a graft.
Proximal RCA: Discrete 95% stenosis. Mid RCA with 95% stenosis.
Graft to the LAD: The graft was normal size sequential free radial from OCAMPO. Graft angiography showed minimal luminal irregularities.
Graft to the first diagonal: The graft was a OCAMPO, it was normal.
Graft to the first obtuse marginal: The graft was a OCAMPO from first diagonal. Graft angiography showed no evidence of disease.
Graft to the mid RCA: The graft was a FILIPE and it was normal.
Summary of outpatient cardiology records: EKG from June 29, 2023 showing sinus rhythm with right bundle branch block and secondary ST-T wave changes. He was last seen in the office on June 29, 2023 and did not repeat any active cardiac
complaints. They noted a history of proximal three-vessel coronary artery disease which led to coronary artery bypass grafting done in 1995 with a OCAMPO to diagonal 1 and obtuse marginal 3, FILIPE to mid RCA, radial conduit of the OCAMPO to diagonal 1
and sequentially to LAD. Heart catheterization was repeated on June 24, 2012 which showed patent bypass grafts however we do not have a detailed cath report.
-Bilateral carotid artery disease with right carotid endarterectomy on April 04, 2019 and left CEA in July 2019.
-Femoral to popliteal LOCATION MAN April 23, 2016, stenting of the right superficial femoral and popliteal arteries with angioplasty of the proximal right superficial femoral artery, angioplasty of the left superficial femoral artery with minimal residual
diffuse disease.
-Left Pharm pop LOCATION MAN angioplasty of multifocal superficial femoral artery in September 2012, LOCATION MAN of tibioperoneal trunk. Left popliteal artery stent was not placed because of concerns for stent fracture in September 2012.
-Last myocardial perfusion study on May 13, 2023 without evidence of ischemia, LVEF 51%
-Patient has chronic claudication complaints per outpatient notes with limited mobility and has been maintained on chronic anticoagulation with warfarin.
Right heart cath 1 05/24/24: RA 8, 38/15, wedge 13, cardiac index 1.5
Plan:
Although his oxygenation has deteriorated, and he is now on high flow again, he remains unchanged from cardiac standpoint and current issues are predominantly relate to his pulmonary infiltrates. Defer to hospitalist fuse spooler as to best
management strategy.
He will still need left heart catheterization when his pulmonary status has stabilized.
After catheterization, we will still need to determine best management strategy for his VT arrest that occurred in hospital. QT interval remains relatively long. Last EKG was on the . Will repeat electrocardiogram in AM.
He remains persistently hypertensive, will defer to renal but would be in favor of up titration of antihypertensive regimen, afterload reduction might assist in cardiac output. With HFpEF, there may still be a role for hydralazine and nitrates.
INR is 1.55 and is pending as of today will follow daily INR.
HPI: Patient came to [facility] on 11/12/23 with increasing SOB after he had trouble keeping up with his home PD treatments and he was admitted with acute HF and volume overload, cardiology is now consulted after a VT arrest today. Patient was admitted
11/12/23 with anasarca, SOB and failing PD at home. Patient lives in [place] and follows with a strip cutter at [facility], but came to for care. Patient and also noted increasing somnolence and some confusion which overall seemed to be
contributing to trouble with maintaining PD treatments at home resulting in weight gain and SOB. Weight was up at least 10 lbs on admission. Patient was admitted and seen by nephrology at , PD was restarted in the hospital. Patient had an echo
11/15/23 that showed a preserved EF. There is a h/o CABG at an outside hospital in 1995, primary health coordinator unknown and patient has never seen cardiology at before. Patient with hyperkalemia on admission that resolved with PD. QT was prolonged to
486 ms on ECG on admission 11/12/23 in the setting of RBBB, then 522 ms 11/16/23, then 543 ms this afternoon at 1330. Patient with a run of VT and confusion noted by nursing around 1330 today and magnesium rider ordered. Last magnesium level was 1.6 on
11/16/23. Patient then had sustained VT and cardiac arrest prompting code 9. Cardiology arrived with rest of the team. Patient undergoing CPR and received Epi x1 and shocked x1 with ROSC. Patient intubated by anesthesia team.
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
Subjective
Date of Service: November 29, 2023:
He offers no complaints at this time
Medications: Aspirin 81 mg a day atorvastatin 40 g a day, ezetimibe 10 mg a day, MiraLAX, metoprolol tartrate 25 twice daily, pantoprazole, warfarin, methylprednisolone, insulin
PMH/PSH/FH/SH: Reviewed
Allergies: None
Outpatient meds have included amlodipine 5 mg twice daily, bisoprolol 5 twice daily, cilostazol, magnesium
ROS: Negative except as above
168/51, pulse 62, respirate 15, sats 99%, weight is 86.3 kg, yesterday 81.7 kg, day before 85.7 kg, overall weight is currently stable
White count 11.7, hemoglobin 9.9, platelets 182, sodium 126, BUN/creatinine 72 and 6.9
Chest x-ray with bilateral infiltrates
Objective
Labs:
11/29/23 04:30
11/29/23 04:30
Labs
Hgb 9.9 g/dL (13.0-18.0) L 11/29/23 04:30
Hct 29.8 % (39.0-52.0) L 11/29/23 04:30
Plt Count 182 10^3/uL (130-400) 11/29/23 04:30
PT 18.8 Sec (11.4-14.6) H 11/28/23 03:58
INR 1.55 11/28/23 03:58
APTT 80.4 Sec (23.4-35.0) H 11/28/23 03:58
Sodium 126 mmol/L (135-145) L 11/29/23 04:30
Potassium 4.3 mmol/L (3.5-5.1) 11/29/23 04:30
BUN 72 mg/dl (9-20) H 11/29/23 04:30
Creatinine 6.9 mg/dL (0.7-1.3) H* 11/29/23 04:30
Glucose 301 mg/dl (70-99) H 11/29/23 04:30
Vital Signs and I&O:
Vital Signs
Temp Pulse Resp BP Pulse Ox
36.1 C 62 15 168/51 99
11/29/23 07:30 11/29/23 07:00 11/29/23 07:00 11/29/23 07:00 11/29/23 07:00
Vital Signs
Temp Pulse Resp BP Pulse Ox
36.1 C 62 15 168/51 99
11/29/23 07:30 11/29/23 07:00 11/29/23 07:00 11/29/23 07:00 11/29/23 07:00
Intake & Output
11/27/23 11/28/23 11/29/23 11/30/23
07:59 07:59 07:59 07:59
Intake Total 867.8 / 874.8 1037 / 1044 2063 / 2063
Output Total 150 / 150 500 / 500 200 / 200
Balance 717.8 / 724.8 537 / 544 1864 / 1864
Physical Exam
Physical Exam
No acute distress
Head neck exam unremarkable
Lungs with crackles
Cardiac regular rate and rhythm JVD okay
Abdomen benign
Extremities without edema
[2023-11-29] MEDS: XANAX 0.5 MG PO ×2 (08:58→18:22)
[2023-11-29] MEDS: NOVOLOG FLEXPEN-MODERATE RESISTANCE SC (08:58)
[2023-11-29] MEDS: NOVOLOG FLEXPEN SC ×2 (08:58→12:49)
[2023-11-29] MEDS: ZETIA 10 MG PO (09:01)
[2023-11-29] MEDS: LOW STRENGTH ASPIRIN 81 MG PO (09:01)
[2023-11-29] MEDS: MAGNESIUM OXIDE 500 MG PO (09:01)
[2023-11-29] MEDS: PROTONIX 40 MG PO (09:01)
[2023-11-29] MEDS: LOPRESSOR 25 MG PO ×2 (09:01→20:40)
[2023-11-29] MEDS: NOVOLOG FLEXPEN 8 UNITS SC (09:02)
[2023-11-29] MEDS: NOVOLOG FLEXPEN-HIGH RESISTANCE 10 UNITS SC (09:02)
[2023-11-29] MEDS: LANTUS 0.299999999999999989 UNITS SC (09:02)
[2023-11-29] MEDS: MIRALAX PO (09:02)
--- NOTE | 2023-11-29 09:20 | W.PN.INTV ---
Today's Communication / Plan
Recommendations
Wean steroids as tolerated
Serial CXR
Observe off antibiotics -last received cefepime on 11/21; prior to that received Zosyn on 11/18 and IV vanco on 11/17/2023
Fluid balance negative via peritoneal dialysis
Assessment
-
Assessment:
Mr Blair Thakkar is a 63/M adm 11-12 with confusion and EV edema. Known h/o CKD on PD, recently not able to do PD himself due to confusion, did. At ER, confused, hypoxemic. Seen by Neurology, no acute findings on CT and MRI brain. Seen by
Renal, resumed PD soon after adm. VTach episode on night 11-16, received IV Mag with resolution. VTach returned on early afternoon 11-17, started Mag IV infusion, MS continued deteriorating, became unresponsive, VTach deteriorated to TDP, then
VFib, shock at 360K x1, developed PEA, received 3 doses epinephrine, total CPR time about 3 min with ROSC, intubated by anesthesia with no reported difficulty
Impression:
Acute hypoxemic respiratory failure: Bilateral infiltrates
Differential diagnosis includes pulmonary edema/inflammatory pneumonitis/less likely infectious
Cardiac arrest 11-17-23
VTach, TDP, VFib, PEA
Low normal serum Mg on 11-16 and given IV Mag on 11-16 and also 11-17 (Mg was running at time of arrest)
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
CKD on PD
CAD s/p CABG
PVD s/p bilateral EV stenting
Emergent stenting RLE Jun 2021 ()
DM
HTN
HLD
Depression
Obesity

Plan:
11/21/2023: Transferred back to the ICU with increased work of breathing necessitating noninvasive mechanical ventilation. Acute onset.
Chest x-ray at that time with ? mild pulmonary edema bilaterally.
CT chest 11/23/2023: Extensive bilateral groundglass opacities with subsegmental bibasilar atelectasis. No pulmonary embolism.
-
Acute Hypoxemic Respiratory Failure: worsening bilateral infiltrates on CXR from 11/28/2023 - suspect an inflammatory pneumonitis; cannot rule out aspiration with subsequent acute lung injury. Patient has never been on amiodarone.
No antibiotics were given-no evidence for infection.
Right heart catheterization 11/24/2023: Not consistent with volume overload.
Responding to steroids --> currently on solumedrol 40mg IV q6hr (after beign on prednisone 40mg daily x 2 days prior on 11/27 + 11/28, and before that was on decadron 4mg IV q8hr from 11/24 - 11/26)- adjust as pt improves; trend CRP, BNP and procal
-
continue physical therapy/Occupational Therapy.
Speech evaluation noted: No overt aspiration. Continue with aspiration precautions.
-
Monitor BG with goal BG 140-180mg/dL; use basal/bolus with high-dose ISS; was previously oninsulin gtt
-
If there is no improvement, will consider bronchoscopy with BAL.

VTach evening 11-16-no further episodes.
Low normal Mg, replaced IV at time of event
No gross e-lyte abnormalities at time of VTach, TDP, VFib/PEA
Status post cardiac arrest 11-17
Required intubation-CPR, 3 epi doses, shock x1 at 360. CPR for about 3 min till ROSC
Extubated 11/18/2023.
Continue to monitor electrolytes
Continue color television console monitor.
Cardiology continues to follow.
-
Nephrology continues to follow.
Continue to attempt negative fluid balance via peritoneal dialysis.
-
Antibiotics discontinued 11/19/2023. No evidence for infection.
Restarted on cefepime 11/21/2023: No evidence for infection. Discontinued antibiotics.
All cultures were negative.
-
Hyperglycemia: Steroid-induced
Goal BG 140-180 mg/dL
Adjust basal/bolus insulin dosing as required
-
On chronic coumadin for h/o PVD s/p stents
Continue Coumadin. Follow INR - if indication is for DVT ppx then goal 1.5 - 1.9 is fine, but if indication is for PVD stent then INR should be >2. I want his INR to be 2-3 given he has Hx of stents.
Daily INR
Monitor for bleeding
-
Pulmonary will continue to follow.

Diagnostic tests:
CXR -- pm: interim intubation and GT. pulm vasc and parenchymal congestion.
CXR 01-05 and 08-31 AM, portable, improved pulm vasc and parenchymal congestion, sternotomy
TTE 11-17-23 (post cardiac arrest)
CONCLUSIONS
Limited study
Normal left ventricular chamber size. Mild concentric left ventricular
hypertrophy. Normal left ventricular systolic function. Left ventricular
ejection fraction is 50% by Grimaldo' s method. Diastology not assessed.
Since echocardiogram November 15, 2023 which was reviewed, there is no
significant change.
TTE 11-15-23
CONCLUSIONS
Normal left ventricular chamber size. Normal left ventricular systolic
function. Normal regional wall motion. Mild concentric left ventricular
hypertrophy. Left ventricular ejection fraction is 55-60% by visual estimate.
Diastolic function indeterminate due to atrial fibrillation.
Mildly thickened mitral valve leaflets. Mitral annular calcification. Mitral
valve opens normally. Trace mitral regurgitation.
Subjective Dataa
Subjective Data
Date of Service:
Date of Service: November 29, 2023
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
Subjective:
Seen this AM. Raised to HFNC at FiO2 90%. He feels ok. BG elevated to 301 this AM. Tolerated breakfast without nausea or vomiting. He denies chest pain, abdominal pain, fevers or chills. he is net (+) 1.8L last 24 hrs, but cumulatively since
admission he is net -7.8 L.
Review of Systems
General: Other (12 point ROS performed and is negative unless mentioned above.)
Objective Data
Data Reviewed
Vital Signs / I&O / Oxygen:
Vital Signs
Temp Pulse Resp BP Pulse Ox
97 F 63 15 157/67 92
11/29/23 07:30 11/29/23 09:01 11/29/23 07:00 11/29/23 09:01 11/29/23 08:59
Intake and Output
11/28/23 11/29/23 11/30/23
06:59 06:59 06:59
Intake Total 1044 / 1044 2063
Output Total 500 / 500 200 / 200 100 / 100
Balance 544 / 544 1864 / 1864 -100 / -100
SaO2 [NIV (Non Invasive 95
Ventilation)]
SaO2 [CPAP/PSV] 95
SaO2 [A/C] 96
SaO2 92
Nasal Cannula flow liters per 50
minute
Physical Exam
General: Respiratory Distress (mild with activity)
HEENT: Normocephalic and Moist Mucous Membranes
Cardiovascular: S1-S2, Murmur (n), Peripheral Edema (n) and Other (normal rate)
Respiratory: Wheeze (negative), Crackles and Stridor (n)
GI: Soft, Non Distended and Non Tender
Neurology: Awake, Alert, Oriented and No Motor Deficits
Skin: Warm and Dry
Labs/Micro/Reports
Lab Data
11/29/23 04:30
11/29/23 04:30
Microbiology
11/21/23 15:52 Blood/Venous Blood Culture - Final
No Growth - Final Report
--- NOTE | 2023-11-29 10:40 | W.PN.NEPH.PH ---
Today's Communication / Plan
-
adjust PD
Assessment/Plan
-
Assessment
-ESRD on PD
-volume overload
-CHF
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
-PAD
-HTN
-edema
-CAD/CABG
-DM2
-Hyponatremia
-In-hospital cardiac arrest 11/17/23
-VT arrest
s/p shock x1 and Epi x1 11/17/23
Plan
Worsening resp status on high flow
vol status seem stable though wt gain noted
BP stable with out hypotension
will adjust PD-add 1 dwell of 4.2
he has minimal UF with 2.5 bags
-there is a possibility that he will need to be converted to HD here depending on volume status and for home discharge planning. discussed with patient and he is amenable to the change if needed
I spoke to his securities attorney Dr Fuentes 2 week ago
Hyponatremia-maintain FR , part of it from hyperglycemia
d/w pt and nursing
-
-
Date of Service: November 29, 2023
CC / HPI / ROS
-
Chief Complaint:
ESRD
History of Present Illness:
PD in progress
s/p code 9 with VT 11/17/23
on high flow O2 and remains on IV Decadron
BP stable no hypotension
hb 9.9, na non corrected 126, BG 300
Review of Systems:
no fever
no CP
no SOB at rest
Weights increasing
Labs
-
Labs:
WBC 11.7 10^3/uL (4.8-10.8) H 11/29/23 04:30
RBC 3.39 10^6/uL (4.70-6.10) L 11/29/23 04:30
Hgb 9.9 g/dL (13.0-18.0) L 11/29/23 04:30
Hct 29.8 % (39.0-52.0) L 11/29/23 04:30
Plt Count 182 10^3/uL (130-400) 11/29/23 04:30
Sodium 126 mmol/L (135-145) L 11/29/23 04:30
Potassium 4.3 mmol/L (3.5-5.1) 11/29/23 04:30
Chloride 91 mmol/L (98-107) L 11/29/23 04:30
Carbon Dioxide 29 mmol/L (22-30) 11/29/23 04:30
BUN 72 mg/dl (9-20) H 11/29/23 04:30
Creatinine 6.9 mg/dL (0.7-1.3) H* 11/29/23 04:30
eGFR 8.28 11/29/23 04:30
Glucose 301 mg/dl (70-99) H 11/29/23 04:30
Calcium 7.7 mg/dl (8.4-10.2) L 11/29/23 04:30
Phosphorus 3.4 mg/dl (2.5-4.5) 11/22/23 04:43
Lom-Q-Twfljzcwjra Pept > 39536 pg/ml 11/24/23 04:51
Albumin 2.7 g/dl (3.5-5.0) L 11/12/23 13:11
Physical Exam
-
Vital Signs:
Vital Signs
Temp Pulse Resp BP Pulse Ox
97 F 63 15 157/67 92
11/29/23 07:30 11/29/23 09:01 11/29/23 07:00 11/29/23 09:01 11/29/23 08:59
Cardiovascular:: Regular rate and rhythm
Lung Excursion:: Abnormal (decreased) and Normal
Abdomen:: Nontender and Soft
Extremity Edema:: None: Bilateral:
Sweeney Catheter: No
--- NOTE | 2023-11-29 10:56 | W.PN.UPDATE ---
Update Note
Progress Note Update
pt seen during dwelling
PD reviewed
adjust made with 42, 2.5 alternate since increased wt
FV 2lit
--- NOTE | 2023-11-29 11:22 | W.PN.HOSP.TC ---
Today's Communication/Plan
-
see bold
Assessment / Plan
Assessment / Plan
Gen: NAD, awake and alert, well-developed, well-nourished
Eyes: EOMI, PERRLA, no scleral icterus.
Neck: supple.
CV: continues to remain bradycardic, regular rhythm, +S1/S2, no m/r/g.
Resp: CTAB anteriorly
Abd: continues to remain +BS, soft, NT, ND
Skin: No rashes.
Neuro: CN 2-12 intact, non-focal.
Psych: Normal mood and affect.
CT chest 11/23/23:
1). There is no pulmonary embolism
2).There is diffuse groundglass airspace disease throughout both lungs, most prominent at the lung bases without associated pleural effusions or overfilling of the pulmonary vasculature suggesting that this diffuse interstitial pneumonia such as may
be seen with COVID 19.
3). Moderate-large volume abdominal ascites
4). Postoperative changes with wire sternal sutures and mediastinal clips
CXR 11/26/23: Hazy patchy bibasilar opacification increased in comparison to most recent prior chest radiograph, possibly representing pneumonitis.
CXR 11/28/23: Worsening diffuse interstitial pneumonia.
Acute hypoxic respiratory failure:
-After his prolonged hospital course and based on the evidence we have at hand, it appears etiology is acute lung injury due to acute interstitial pneumonia/inflammatory pneumonitis per pulm
-Was on IV dexamethasone, then transitioned to prednisone, now on Solumedrol 40mg IV Q6H
-was on insulin drip for steroid-induced hyperglycemia, now transitioned to SC insuline. Increase Lantus to 35U, increase premeal aspart to 12U, increase SSI to high resistance. Diabetes nurse practitioner is following. If blood glucoses do not
improve he may need to go back on insulin infusion.
-was weaned down to mid flow 8L O2 on 11/27/23 from High Flow Oxygen prior. Now on 50L/70% highflow.
-No need for antibiotics
-Reviewed latest CT scan of the chest and all images during this hospital stay including today's cxr--> latest chest x-ray with bilateral opacities (disagree with radiology report rather than worsening it's pretty much the same).
ESRD on PD:
-Continue PD per nephrology. Nephrology following.
-Volume effectively coming off but would not be feasible upon discharge for either home (prob can not do it by himself) or SNF (would not be accepted).
-Would likely require conversion to hemodialysis but will defer to nephrology for timing
Cardiopulmonary arrest/CAD:
-VT/V Fib arrest on 11/17/23 with ROSC
-V. tach-->TDP-->V Fib-->PEA. CPR abt 3 min and Epinephrine x3. V Fib s/p shock 360J x1--> ROSC achieved.
-On aspirin, beta-blockers increased metoprolol 25 mg twice a day, on statin atorvastatin 40 mg p.o. nightly.
-Latest EKG if QTc is 450 which is an improvement from prior EKGs(>500's).
-Keep K above 4 and mag above 2
-Continue cardiac monitoring
-Right heart cath showed PCWP of 13 on 11/24/23
-Transthoracic echocardiogram--> EF 50%, mild concentric left ventricular hypertrophy, no significant changes from prior echo.
-Cardiology following
-Known history of CAD with CABG back in 1995.
-Plan for left heart cardiac cath next week if respiratory status stable and possible AICD.
Peripheral vascular disease:
-cont ASA/statin.
-cont warfarin
-Known PVD, femoropopliteal bypass 2015, right CEA 2018, left CEA 2018, right Stent SFA BANK BOSS 2020
-was on Heparin drip, now transitioned to warfarin on 11/25/23 (no bridge needed)
Acute metabolic encephalopathy:
-Multifactorial in nature with uremia and hypoxemia but currently improving and back to his baseline.
-Head CT with impression of no acute intracranial abnormality but some chronic changes noted.
-MRI brain negative for acute stroke or pathology.
-Continue to monitor mental status.
Other problems:
Essential hypertension: cont BB
Atrial tachycardia: Continue BB
Chronic diastolic CHF: cont BB and maintenance of euvolemia via hemodialysis
Hypokalemia, resolved
Hypomagnesemia: cont PO Mg
Hyperlipidemia: cont statin/Zetia
Depression: Now off Zoloft to avoid prolonged QTc.
FULL/coumadin
Anticipated Discharge: > 48 hours
Subjective/Interval History
-
Date of Service: November 29, 2023
Pt denies SOB while on high flow.
Objective Data
-
Labs:
Laboratory Results
11/29/23
04:30
WBC 11.7 H
Hgb 9.9 L
Hct 29.8 L
Plt Count 182
Sodium 126 L
Potassium 4.3
Chloride 91 L
Carbon Dioxide 29
BUN 72 H
Creatinine 6.9 H*
Glucose 301 H
Calcium 7.7 L
Vital Signs:
Vital Signs
Temp Pulse Resp BP Pulse Ox
97.6 F 62 17 145/65 95
11/29/23 11:09 11/29/23 10:00 11/29/23 10:00 11/29/23 10:00 11/29/23 10:00
I&O
11/28/23 11/29/23 11/30/23
06:59 06:59 06:59
Intake Total 1044 / 1044 2064 / 2064 240 / 240
Output Total 500 / 500 200 / 200 100 / 100
Balance 544 / 544 1864 / 1864 140 / 140
[2023-11-29 11:56] LABS: Glucose - Point of Care 410 mg/dl (70-99)
[2023-11-29 12:18] LABS: Glucose 418 mg/dl (70-99)
[2023-11-29] MEDS: NOVOLOG FLEXPEN-HIGH RESISTANCE 14 UNITS SC (12:48)
[2023-11-29] MEDS: MARINOL 2.5 MG PO (14:05)
[2023-11-29 14:15] LABS: Glucose - Point of Care 370 mg/dl (70-99)
[2023-11-29 14:53] LABS: NT-proBNP > 27000 pg/ml
[2023-11-29] MEDS: NOVOLOG FLEXPEN 12 UNITS SC (16:34)
[2023-11-29] MEDS: NOVOLOG FLEXPEN-HIGH RESISTANCE 7 UNITS SC (16:34)
[2023-11-29 16:43] LABS: Glucose - Point of Care 262 mg/dl (70-99)
[2023-11-29] MEDS: MARINOL PO (16:51)
[2023-11-29] MEDS: COUMADIN 4 MG PO (17:57)
--- NOTE | 2023-11-29 20:00 | PTCARENOTE ---
Resumed care of pt laying in bed AAOx3, slightly drowsy, easily arousable to voice, flat affect. [place]. HR in the 60's im NSR with BBB and prolonged QT. SB at times. POX 95% on High Flow NC 50L/60%. lungs dec at bases. TRISTAN. + bowel, round dist abd.
Right lower abd PD cath with dressing intact. Pt denies any complaints of constipation at this time. PD Q4 per MD order. 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 Palpable peripheral pulses present. Brown pvd legs noted. Scattered scabs open to
air B/L LE. Left hand int capped. LUE midline in place. Pt reports back pain 8, requests pain medication at 2100. Pt repositioned per comfort. Call lin in reach. Will continue to monitor.
[2023-11-29] MEDS: LIPITOR 40 MG PO (21:01)
[2023-11-29] MEDS: ROXICODONE 10 MG PO (21:01)
[2023-11-29 23:09] LABS: Glucose - Point of Care 244 mg/dl (70-99)
[2023-11-30] VITALS (25 sets, daily range): BP systolic 107–187; BP diastolic 45–119; BMI 28.4
[2023-11-30] MEDS: ANESTHETIC LOZENGE 1 LOZENGE PO (02:54)
[2023-11-30] MEDS: SOLU-MEDROL PF 40 MG IV ×3 (05:17→18:04)
[2023-11-30 05:31] LABS: Hemoglobin 9.5 g/dL (13.0-18.0); Mean Corp Hgb Conc. 33.9 g/dL (33.0-37.0); Mean Corpuscular Hgb 29.3 pg (27.0-31.0); Mean Corpuscular Volume 86.4 fL (80.0-94.0); Mean Platelet Volume 11.6 fL (7.4-10.4); Platelet Count 163 10^3/uL (130-400); Red Blood Cell Count 3.24 10^6/uL (4.70-6.10); Red Cell Dist. Width 15.2 % (11.5-14.5); White Blood Cell Count 12.8 10^3/uL (4.8-10.8)
[2023-11-30 05:41] LABS: PT 27.4 Sec (11.4-14.6)
[2023-11-30 05:58] LABS: Blood Urea Nitrogen 73 mg/dl (9-20); Calcium 7.6 mg/dl (8.4-10.2); Carbon Dioxide 31 mmol/L (22-30); Chloride 90 mmol/L (98-107); Estimated Creatinine Clearance 10 ml/min; Glucose 332 mg/dl (70-99); Magnesium 2.1 mg/dl (1.6-2.3); Phosphorus 4.7 mg/dl (2.5-4.5); Potassium 4.1 mmol/L (3.5-5.1); Sodium 126 mmol/L (135-145); eGFR 8.28
[2023-11-30 07:59] LABS: Glucose - Point of Care 320 mg/dl (70-99)
--- NOTE | 2023-11-30 08:26 | PN.DE.MGMTRT ---
Insulin Management
- -
11/18/2023 Diabetes Management Consult
Admitted 11/12 for R foot wound, confusion, SOB, swelling. PMH renal failure with peritoneal dialysis, HTN, PVD type 2 diabetes. Prior to admission chart reflects he was taking 60 units Basaglar daily with NovoLog 28 units BID. A1C 8.6%. Patient
had cardiac arrest 11/16 now intubated on mechanical ventilation and insulin infusion. Prior to this patient was receiving Lantus in AM with AC NovoLog at reduced doses.
Will continue glycemic protocol at this time. If patient is weaned off of ventilator will assess for readiness to transition to subcutaneous insulin.
11/19/2023: Diabetes Management F/U:
Pt extubated last evening. Doing well, sitting up in bed, offers no complaints.
Glucose trended up to 197, remains on glycemic protocol requiring 0.8-7 units of insulin/ hr while NPO.
Pt was taking 60 units Basaglar daily with NovoLog 28 units BID ENVIRONMENTAL DIRECTOR.
Will transition off drip. Give Lantus 30 units NOW, turn drip off 1 hr after.
Start AC NovoLog 8 units and moderate corrective insulin with meals. Start 1800 ADA diet. Accucheks AC/HS
Will follow for further needed insulin adjustments. Plan of care d/w pt and Nurse.
11/22/2023: Diabetes Management F/U:
Pt transferred back to ICU for increased O2 requirements.
Currently NPO for R/LHC today. Premeal glucose trended up to 345 requiring 3-7 units of corrective insulin.
Will make no changes to regimen at this time, reassess after procedure and make necessary adjustments to insulin dose
11/23/2023 Diabetes Management Follow Up
Patient glucose controlled on current regimen, trended down to 79 @ HS. Will slightly decrease AM Lantus dose to 27 units to start Wednesday, 11/24.
Patient is NPO for procedure, will order one time dose of Lantus 15 units now.
11/24/2023 Diabetes Management Follow Up
Cardiac cath cancelled yesterday due to patient hypoxia. Dexamethasone 4 mg BID started last evening, glucose up to 460. Insulin administered. Fasting glucose 393. Glycemic protocol has been started. Will continue today and reassess in AM/
11/25/2023 Diabetes Management Follow up
Patient remains on steroids, glucose controlled on glycemic protocol requiring .8 to 10 units NovoLog per hour. He is eating meals and receiving supplemental insulin. Will continue glycemic protocol, assess in AM for readiness to transition to
subq regimen. I spoke with patient nurse.
11/26/2023: Diabetes Management F/U:
Patient remains on steroids- Dexa 4mg Q8hrs, continues on glycemic protocol, glucose range 89-219 requiring .5 to 12 units NovoLog per hour.
He is eating meals and receiving supplemental insulin.
Plan is to start steroid taper today, will continue glycemic protocol for now and reassess later today for readiness to transition to SQ insulin.
11/29/2023: Diabetes Management F/U:
Steroids were tapered down to Pred 40mg daily--> transitioned off CC glycemic protocol to SQ insulin over the weekend
Noted for worsening oxygenation--> resumed high dose IV steroids--> Hyperglycemia.
Pt resting in bed, offers no complaints. Glucose has remained elevated, FBG 301 this AM, premeal range 199 to 345, Dr. Lopez has increased his AC NovoLog dose to 8 units. Will increase Lantus to 35 units, 1st dose will be given tomorrow AM. Cont
current AC dose and corrective insulin with meals
Will closely follow and adjust insulin if necessary.
11/30/2023 Diabetes Management Follow up
Patient continues on steroids. Glucose remains elevated > 200. Lantus to increase to 35 units this AM. Novolog increased yesterday to 12 units, continued to require corrective insulin. Will increase AC novolog to 15 units. Will follow
Diabetes History
- -
Type of Diabetes: 2 requiring insulin
Pre-Admission Diabetes Regimen
11/30/23
05:15
Creatinine 6.9 H*
Lab Results
Hemoglobin A1c 8.6 % (4.0-5.6) H 11/13/23 06:09
Insulin Pump Settings
IP Diabetes Regimen
11/29/23 11/29/23 11/29/23
11:45 11:56 14:04
Glucose 418 H
POC Glucose 410 H 370 H
11/29/23 11/29/23 11/30/23
16:32 22:59 05:15
Glucose 332 H
POC Glucose 262 H 244 H
11/30/23
07:48
Glucose
POC Glucose 320 H
Patient Education
[2023-11-30] MEDS: LOPRESSOR 25 MG PO ×2 (08:30→21:37)
[2023-11-30] MEDS: MAGNESIUM OXIDE 500 MG PO (08:31)
[2023-11-30] MEDS: ZETIA 10 MG PO (08:31)
[2023-11-30] MEDS: PROTONIX 40 MG PO (08:31)
[2023-11-30] MEDS: LOW STRENGTH ASPIRIN 81 MG PO (08:31)
[2023-11-30] MEDS: LANTUS 0.349999999999999978 UNITS SC (08:42)
[2023-11-30] MEDS: NOVOLOG FLEXPEN SC ×2 (08:42→12:30)
--- NOTE | 2023-11-30 08:54 | W.PN.PUL3 ---
Today's Communication / Plan
-
Continue high-flow nasal cannula and wean FiO2 + flow as tolerated to keep SpO2 >90-94%
Continue high dose steroids, if sats remain stable by tomorrow and FiO2 is <65% then I will wean steroids tomorrow
Continue PD
Up oob as tolerated
Encourage IS use
Pulmonary service will continue to follow along (pt is IMU status)
Assessment
-
Assessment:
Mr Blair Thakkar is a 63/M adm 11-12 with confusion and EV edema. Known h/o CKD on PD, recently not able to do PD himself due to confusion, did. At ER, confused, hypoxemic. Seen by Neurology, no acute findings on CT and MRI brain. Seen by
Renal, resumed PD soon after adm.� VTach episode on night 11-16, received IV Mag with resolution. VTach returned on early afternoon 11-17, started Mag IV infusion, MS continued deteriorating, became unresponsive, VTach deteriorated to TDP, then
VFib, shock at 360K x1, developed PEA, received 3 doses epinephrine, total CPR time about 3 min with ROSC, intubated by anesthesia with no reported difficulty
Impression:
Acute hypoxemic respiratory failure: Bilateral infiltrates
Differential diagnosis includes pulmonary edema/inflammatory pneumonitis/less likely infectious
Cardiac arrest �11-17-23
VTach, TDP, VFib, PEA
Low normal serum Mg on 11-16 and given IV Mag on 11-16 and also 11-17 (Mg was running at time of arrest)
Conditions OFFBEARER:
CKD on PD
CAD s/p CABG
PVD s/p bilateral EV stenting
Emergent stenting RLE Jun 2021 ()
DM
HTN
HLD
Depression
Obesity

Plan:
11/21/2023: Transferred back to the ICU with increased work of breathing necessitating�noninvasive mechanical ventilation.� Acute onset.
Chest x-ray at that time with ? mild pulmonary edema bilaterally.
CT chest 11/23/2023: Extensive bilateral groundglass opacities with subsegmental bibasilar atelectasis.� No pulmonary embolism.
-
Acute Hypoxemic Respiratory Failure: worsening bilateral infiltrates on CXR from 11/28/2023 - suspect an inflammatory pneumonitis; cannot rule out aspiration with subsequent acute lung injury.� Patient has never been on amiodarone.
No antibiotics were given-no evidence for infection.
Right heart catheterization 11/24/2023: Not consistent with volume overload.
Responding to steroids -->�currently on solumedrol 40mg IV q6hr (after being on prednisone 40mg daily x 2 days prior on 11/27 + 11/28, and before that was on decadron 4mg IV q8hr from 11/24 - 11/26)- adjust as pt improves;� trend CRP, BNP and procal -->
CRP is downtrending, BNP remains >27k
-
continue physical therapy/Occupational Therapy.
Speech evaluation noted: No overt aspiration.� Continue with aspiration precautions.
-
Monitor BG with goal BG 140-180mg/dL;� use basal/bolus with high-dose ISS; was previously on insulin gtt
-
If there is no improvement, will consider bronchoscopy with BAL.

VTach evening 11-16-no further episodes.
Low normal Mg, replaced IV at time of event
No gross e-lyte abnormalities at time of VTach, TDP, VFib/PEA
Status post cardiac arrest 11-17
Required intubation-CPR, 3 epi doses, shock x1 at 360. CPR for about 3 min till ROSC
Extubated 11/18/2023.
Continue to monitor electrolytes with goal K>4, Mg>2
Continue engine monitor.
Cardiology continues to follow.
-
Nephrology continues to follow.
Continue to maintain negative fluid balance via peritoneal dialysis.
-
Antibiotics discontinued 11/19/2023.� No evidence for infection.
Restarted on cefepime 11/21/2023: � No evidence for infection.� Discontinued antibiotics.
Procal was checked yesterday and it has downtrended compared to prior value, indicating we have adequate source control
All cultures were negative.
-
Hyperglycemia: Steroid-induced
Goal BG 140-180 mg/dL
Adjust basal/bolus insulin dosing as required
-
On chronic coumadin for h/o PVD s/p stents
Continue Coumadin with goal 2-3 - reduce his coumadin to 2mg daily however given the sharp rise in INR today (currently 2.5 from 1.55). Follow INR - if indication is for DVT ppx then goal 1.5 - 1.9 is fine, but if indication is for PVD stent then
INR should be >2.� I want his INR to be 2-3 given he has Hx of stents.
Daily INR
Monitor for bleeding
-
Pulmonary service will continue to follow.

Diagnostic tests:
CXR 11-30-2023: Compared to CXR from 11/28/2023; Moderate diffuse interstitial pneumonia, not significantly changed when compared with prior study
CXR 11-17-23 pm: interim intubation and GT. pulm vasc and parenchymal congestion.
CXR 11-12 and 08-31 AM, portable, improved pulm vasc and parenchymal congestion, sternotomy
TTE 11-17-23 (post cardiac arrest)
CONCLUSIONS
�Limited study
�Normal left ventricular chamber size. Mild concentric left ventricular
�hypertrophy. Normal left ventricular systolic function. Left ventricular
�ejection fraction is 50% by Grimaldo' s method.� Diastology not assessed.
�Since echocardiogram November 15, 2023 which was reviewed, there is no
�significant change.
TTE 11-15-23
CONCLUSIONS
�Normal left ventricular chamber size. Normal left ventricular systolic
�function. Normal regional wall motion. Mild concentric left ventricular
�hypertrophy. Left ventricular ejection fraction is 55-60% by visual estimate.
�Diastolic function indeterminate due to atrial fibrillation.
�Mildly thickened mitral valve leaflets. Mitral annular calcification. Mitral
�valve opens normally. Trace mitral regurgitation.
Subjective Data
-
Date of Service:
Date of Service: November 30, 2023
Chief Complaint: Pulmonary Follow Up
Subjective:
Patient seen this morning. Laying in bed in no acute distress. O2 had to be raised from mid flow 15 L/min to high flow nasal cannula. When I saw him he was at 60% FiO2 saturating 90%. He says he feels fine, denies any worsening shortness of
breath. He is obtaining PD. He is net +1 L over the last 24 hours, and cumulatively he is net -6.8 L since admission.
Review of Systems
General: Other (12 point ROS performed and is negative unless mentioned above.)
Objective Data
Data Reviewed
Vital Signs / I&O / Oxygen:
Vital Signs
Temp Pulse Resp BP Pulse Ox
97.5 F 58 19 164/80 94
11/30/23 08:04 11/30/23 09:02 11/30/23 09:02 11/30/23 09:02 11/30/23 09:02
Intake and Output
11/29/23 11/30/2312/01/24
06:59 06:59 06:59
Intake Total 2063 1420 / 1420 240 / 240
Output Total 200 / 200 400 / 400 100 / 100
Balance 186 / 1863 1020 / 1020 140 / 140
SaO2 [NIV (Non Invasive 95
Ventilation)]
SaO2 [CPAP/PSV] 95
SaO2 [A/C] 96
SaO2 94
Nasal Cannula flow liters per 55
minute
Physical Exam
General: Respiratory Distress (negative at rest), Comfortable and Chills (negative)
HEENT: Normocephalic, Anicteric and Moist Mucous Membranes
Cardiovascular: S1-S2, Peripheral Edema (negative) and Other (bradycardic)
Respiratory: Wheeze (n), Crackles (Bilaterally (L>R)), Non-Labored Respirations and Stridor (n)
GI: Soft, Non Distended and Non Tender
Neurology: Awake, Alert and No Motor Deficits
Skin: Warm, Dry and Jaundice (negative)
Labs/Micro/Reports
Lab Data
11/30/23 05:24
11/30/23 05:15
Laboratory Results
11/30/23
05:15
PT 27.4 H
INR 2.50
--- NOTE | 2023-11-30 09:00 | PTCARENOTE ---
Assumed care of patient at 0645. Assessment completed and documented in shift assessment.
Remains on HFNC. Drained PD Cath, patient started dwell time at 0850. Continues on high dose insulin protocol. Otherwise hemodynamically stable.
[2023-11-30] MEDS: NOVOLOG FLEXPEN 15 UNITS SC ×2 (09:05→18:05)
[2023-11-30] MEDS: NOVOLOG FLEXPEN-HIGH RESISTANCE 10 UNITS SC (09:05)
[2023-11-30] MEDS: MIRALAX 17 GRAMS PO (09:05)
[2023-11-30] MEDS: XANAX 0.5 MG PO ×2 (09:05→21:37)
--- NOTE | 2023-11-30 09:07 | W.PN.CARDCBS ---
Today's Communication / Plan
-
PD for volume
Follow EKG
eventual left heart cath
pulm toilet as per primary service intensivisit
Impression / Plan
-
.
PCP: Dr. Susan Starkey
Cardiology: Unknown
Nephrology: [facility]
Vascular surgery: Dr. Sweeney
Impression:
Respiratory failure, worsening today, O2 requirements increased to high-flow
In-hospital cardiac arrest 11/17/23
VT arrest
s/p shock x1 and Epi x1 11/17/23
Prolonged QT
Admitted with TME, uremia and anasarca 11/12/23
ESRD on PD
failing at home PD due to cognitive dysfunction
Elevated Troponin
CAD s/p CABG outside hospital 1995
Acute HFpEF, improving
Anasarca, improving
PAD
fem pop bypass 2015
right CEA at [facility] 03/2019
left CEA at [place] 07/2019
right SFA RIGGING LOFT MECHANIC 2020
Chronic warfarin OAC for PAD
DM 2
Echo 11/15/23: EF 55-60%, trace MR
Echo 11/17/23: LVEF 50% with mild LVH. No significant valve disease.
Cath: June 24, 2012 for atypical chest discomfort via right common femoral artery:
Aortic pressure: 141/64, mean of 95 mmHg. LVEDP of 12. Weight 102kh.
Coronary circulation: Mid LAD: 100% stenosis.
Mid circumflex: 100% stenosis
OM1: 100% stenosis with good blood supply to the distal myocardium from a graft.
Proximal RCA: Discrete 95% stenosis. Mid RCA with 95% stenosis.
Graft to the LAD: The graft was normal size sequential free radial from OCAMPO. Graft angiography showed minimal luminal irregularities.
Graft to the first diagonal: The graft was a OCAMPO, it was normal.
Graft to the first obtuse marginal: The graft was a OCAMPO from first diagonal. Graft angiography showed no evidence of disease.
Graft to the mid RCA: The graft was a FILIPE and it was normal.
Summary of outpatient cardiology records: EKG from June 29, 2023 showing sinus rhythm with right bundle branch block and secondary ST-T wave changes. He was last seen in the office on June 29, 2023 and did not repeat any active cardiac
complaints. They noted a history of proximal three-vessel coronary artery disease which led to coronary artery bypass grafting done in 1995 with a OCAMPO to diagonal 1 and obtuse marginal 3, FILIPE to mid RCA, radial conduit of the OCAMPO to diagonal 1
and sequentially to LAD. Heart catheterization was repeated on June 24, 2012 which showed patent bypass grafts however we do not have a detailed cath report.
-Bilateral carotid artery disease with right carotid endarterectomy on April 04, 2019 and left CEA in July 2019.
-Femoral to popliteal RIGGING LOFT MECHANIC April 23, 2016, stenting of the right superficial femoral and popliteal arteries with angioplasty of the proximal right superficial femoral artery, angioplasty of the left superficial femoral artery with minimal residual
diffuse disease.
-Left Pharm pop RIGGING LOFT MECHANIC angioplasty of multifocal superficial femoral artery in September 2012, RIGGING LOFT MECHANIC of tibioperoneal trunk. Left popliteal artery stent was not placed because of concerns for stent fracture in September 2012.
-Last myocardial perfusion study on May 13, 2023 without evidence of ischemia, LVEF 51%
-Patient has chronic claudication complaints per outpatient notes with limited mobility and has been maintained on chronic anticoagulation with warfarin.
Right heart cath 1 05/24/24: RA 8, 38/15, wedge 13, cardiac index 1.5
Plan:
Cont pulm toilet with hiFlo O2 and IV steroids as per primary service and promotions producer
Eventual left heart cath to eval coronary anatomy once pulm status is improved. Pending left heart cath results then further discussion about candidacy for ICD.
Monitor QTc. Follow EKGs and potassium and magnesium keeping K>4 and Mg>2.
Consider Hydralazine and nitrates for afterload reduction and help with HTN
INR 2.5 on coumadin. Coumadin would have to be held for cath.
Wedge stable by last right heart cath. Cont PD for volume control as per nephrology
Discussed with nursing.
HPI: Patient came to [facility] on 11/12/23 with increasing SOB after he had trouble keeping up with his home PD treatments and he was admitted with acute HF and volume overload, cardiology is now consulted after a VT arrest today. Patient was admitted
11/12/23 with anasarca, SOB and failing PD at home. Patient lives in [place] and follows with a associate professor of archaeology at [facility], but came to for care. Patient and also noted increasing somnolence and some confusion which overall seemed to be
contributing to trouble with maintaining PD treatments at home resulting in weight gain and SOB. Weight was up at least 10 lbs on admission. Patient was admitted and seen by nephrology at , PD was restarted in the hospital. Patient had an echo
11/15/23 that showed a preserved EF. There is a h/o CABG at an outside hospital in 1995, primary tenter frame operator unknown and patient has never seen cardiology at before. Patient with hyperkalemia on admission that resolved with PD. QT was prolonged to
486 ms on ECG on admission 11/12/23 in the setting of RBBB, then 522 ms 11/16/23, then 543 ms this afternoon at 1330. Patient with a run of VT and confusion noted by nursing around 1330 today and magnesium rider ordered. Last magnesium level was 1.6 on
11/16/23. Patient then had sustained VT and cardiac arrest prompting code 9. Cardiology arrived with rest of the team. Patient undergoing CPR and received Epi x1 and shocked x1 with ROSC. Patient intubated by anesthesia team.
Progress Note - Internal Medicine Doctor
Subjective
Date of Service: November 30, 2023
Pt seen and examined. No cp.
Objective
Labs:
11/30/23 05:24
11/30/23 05:15
Labs
Hgb 9.5 g/dL (13.0-18.0) L 11/30/23 05:24
Hct 28.0 % (39.0-52.0) L 11/30/23 05:24
Plt Count 163 10^3/uL (130-400) 11/30/23 05:24
PT 27.4 Sec (11.4-14.6) H 11/30/23 05:15
INR 2.50 11/30/23 05:15
APTT 80.4 Sec (23.4-35.0) H 11/28/23 03:58
Sodium 126 mmol/L (135-145) L 11/30/23 05:15
Potassium 4.1 mmol/L (3.5-5.1) 11/30/23 05:15
BUN 73 mg/dl (9-20) H 11/30/23 05:15
Creatinine 6.9 mg/dL (0.7-1.3) H* 11/30/23 05:15
Glucose 332 mg/dl (70-99) H 11/30/23 05:15
Vital Signs and I&O:
Vital Signs
Temp Pulse Resp BP Pulse Ox
97.5 F 61 18 187/77 92
11/30/23 08:04 11/30/23 08:30 11/30/23 05:03 11/30/23 08:30 11/30/23 07:35
Vital Signs
Temp Pulse Resp BP Pulse Ox
97.5 F 61 18 187/77 92
11/30/23 08:04 11/30/23 08:30 11/30/23 05:03 11/30/23 08:30 11/30/23 07:35
Intake & Output
11/28/23 11/29/23 11/30/23 12/01/23
06:59 06:59 06:59 06:59
Intake Total 1044 / 1044 2064 / 2064 1420 / 1420 240 / 240
Output Total 500 / 500 200 / 200 400 / 400 100 / 100
Balance 544 / 544 1864 / 1864 1020 / 1020 140 / 140
Physical Exam
Physical Exam
General: No acute distress, AAOX3
Neck: Negative JVD
Heart: Regular, Negative S3 positive S1/S2, Negative S4, No murmur
Lungs: Negative wheezes/rales/rhonchi
Abd: Positive BS, NT/ND, neg rebound/rigidity/guarding
Ext: Negative cyanosis/clubbing/edema
Neuro: nonfocal
--- NOTE | 2023-11-30 10:56 | W.PN.HOSP.TC ---
Today's Communication/Plan
-
see bold
Assessment / Plan
Assessment / Plan
Gen: remains NAD, awake and alert, well-developed, well-nourished
Eyes: EOMI, PERRLA, no scleral icterus.
Neck: supple.
CV: RRR, +S1/S2, no m/r/g.
Resp: remains CTAB anteriorly
Abd: +BS, soft, NT, ND
Skin: No rashes.
Neuro: CN 2-12 intact, non-focal.
Psych: Normal mood and affect.
CT chest 11/23/23:
1). There is no pulmonary embolism
2).There is diffuse groundglass airspace disease throughout both lungs, most prominent at the lung bases without associated pleural effusions or overfilling of the pulmonary vasculature suggesting that this diffuse interstitial pneumonia such as may
be seen with COVID 19.
3). Moderate-large volume abdominal ascites
4). Postoperative changes with wire sternal sutures and mediastinal clips
CXR 11/26/23: Hazy patchy bibasilar opacification increased in comparison to most recent prior chest radiograph, possibly representing pneumonitis.
CXR 11/28/23: Worsening diffuse interstitial pneumonia.
Acute hypoxic respiratory failure:
-After his prolonged hospital course and based on the evidence we have at hand, it appears etiology is acute lung injury due to acute interstitial pneumonia/inflammatory pneumonitis per pulm
-Was on IV dexamethasone, then transitioned to prednisone, now on Solumedrol 40mg IV Q6H
-was on insulin drip for steroid-induced hyperglycemia, now transitioned to SC insulin. Cont Lantus to 35U, increase premeal aspart to 15U, high resistance SSI. Diabetes nurse practitioner is following.
-was weaned down to mid flow 8L O2 on 11/27/23 from High Flow Oxygen prior. Now on 55L/67% highflow.
-No need for antibiotics
-Reviewed latest CT scan of the chest and all images during this hospital stay including today's cxr--> latest chest x-ray with bilateral opacities (disagree with radiology report rather than worsening it's pretty much the same).
ESRD on PD:
-Continue PD per nephrology. Nephrology following.
-Volume effectively coming off but would not be feasible upon discharge for either home (prob can not do it by himself) or SNF (would not be accepted).
-Would likely require conversion to hemodialysis but will defer to nephrology for timing
Cardiopulmonary arrest/CAD:
-VT/V Fib arrest on 11/17/23 with ROSC
-V. tach-->TDP-->V Fib-->PEA. CPR abt 3 min and Epinephrine x3. V Fib s/p shock 360J x1--> ROSC achieved.
-On aspirin, beta-blockers increased metoprolol 25 mg twice a day, on statin atorvastatin 40 mg p.o. nightly.
-Latest EKG if QTc is 516ms, monitor
-Keep K above 4 and mag above 2
-Continue cardiac monitoring
-Right heart cath showed PCWP of 13 on 11/24/23
-Transthoracic echocardiogram--> EF 50%, mild concentric left ventricular hypertrophy, no significant changes from prior echo.
-Cardiology following
-Known history of CAD with CABG back in 1995.
-Plan for left heart cardiac cath once respiratory status stable (possible AICD)
Peripheral vascular disease:
-cont ASA/statin.
-cont warfarin
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
-was on Heparin drip, now transitioned to warfarin on 11/25/23 (no bridge was needed). INR now therapeutic.
Acute metabolic encephalopathy:
-Multifactorial in nature with uremia and hypoxemia but currently improving and back to his baseline.
-Head CT with impression of no acute intracranial abnormality but some chronic changes noted.
-MRI brain negative for acute stroke or pathology.
-Continue to monitor mental status.
Other problems:
Essential hypertension: cont BB
Atrial tachycardia: Continue BB
Chronic diastolic CHF: cont BB and maintenance of euvolemia via hemodialysis
Hypokalemia, resolved
Hypomagnesemia: cont PO Mg
Hyperlipidemia: cont statin/Zetia
Depression: Now off Zoloft to avoid prolonged QTc.
FULL/coumadin
Anticipated Discharge: > 48 hours
Subjective/Interval History
-
Date of Service: November 30, 2023
Denies SOB currently.
Objective Data
-
Labs:
Laboratory Results
11/30/23 11/30/23
05:15 05:24
WBC 12.8 H
Hgb 9.5 L
Hct 28.0 L
Plt Count 163
PT 27.4 H
INR 2.50
Sodium 126 L
Potassium 4.1
Chloride 90 L
Carbon Dioxide 31 H
BUN 73 H
Creatinine 6.9 H*
Glucose 332 H
Calcium 7.6 L
Vital Signs:
Vital Signs
Temp Pulse Resp BP Pulse Ox
97.5 F 59 19 164/53 94
11/30/23 08:04 11/30/23 10:00 11/30/23 10:00 11/30/23 10:00 11/30/23 09:02
I&O
11/29/23 11/30/23 12/01/23
06:59 06:59 06:59
Intake Total 2063 / 2063 1420 / 1420 240 / 240
Output Total 200 / 200 400 / 400 100 / 100
Balance 186 / 186 1020 / 1020 140 / 140
[2023-11-30 11:53] LABS: Glucose - Point of Care 364 mg/dl (70-99)
--- NOTE | 2023-11-30 12:12 | W.PN.NEPH.PH ---
Today's Communication / Plan
-
cont PD same
Assessment/Plan
-
Assessment
-ESRD on PD
-volume overload
-CHF
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
-PAD
-HTN
-edema
-CAD/CABG
-DM2
-Hyponatremia
-In-hospital cardiac arrest 11/17/23
-VT arrest
s/p shock x1 and Epi x1 11/17/23
Plan
remains on high flow, CXR no change
likely volume is not contributing to his resp symp
BP stable with out hypotension
cotn PD 2.5 and 4.2 alternate, wt better today
he has minimal UF with 2.5 bags
-there is a possibility that he will need to be converted to HD here depending on volume status and for home discharge planning. discussed with patient and he is amenable to the change if needed
Hyponatremia-maintain FR , part of it from hyperglycemia corrected 131
monitor h/h
BP labile on low dose BB -monitor
d/w pt and ICU
-
-
Date of Service: November 30, 2023
CC / HPI / ROS
-
Chief Complaint:
ESRD
History of Present Illness:
PD in progress
s/p code 9 with VT 11/17/23
on high flow O2 and remains on IV Decadron
mild hypotension last bight but high this am
hb 9.5 no change, na corrected 131, BG 300
Review of Systems:
no fever
no CP
no SOB at rest
Weights down
Labs
-
Labs:
WBC 12.8 10^3/uL (4.8-10.8) H 11/30/23 05:24
RBC 3.24 10^6/uL (4.70-6.10) L 11/30/23 05:24
Hgb 9.5 g/dL (13.0-18.0) L 11/30/23 05:24
Hct 28.0 % (39.0-52.0) L 11/30/23 05:24
Plt Count 163 10^3/uL (130-400) 11/30/23 05:24
Sodium 126 mmol/L (135-145) L 11/30/23 05:15
Potassium 4.1 mmol/L (3.5-5.1) 11/30/23 05:15
Chloride 90 mmol/L (98-107) L 11/30/23 05:15
Carbon Dioxide 31 mmol/L (22-30) H 11/30/23 05:15
BUN 73 mg/dl (9-20) H 11/30/23 05:15
Creatinine 6.9 mg/dL (0.7-1.3) H* 11/30/23 05:15
eGFR 8.28 11/30/23 05:15
Glucose 332 mg/dl (70-99) H 11/30/23 05:15
Calcium 7.6 mg/dl (8.4-10.2) L 11/30/23 05:15
Phosphorus 4.7 mg/dl (2.5-4.5) H 11/30/23 05:15
Ymd-J-Zilsndnezzf Pept > 18285 pg/ml 11/29/23 04:30
Albumin 2.7 g/dl (3.5-5.0) L 11/12/23 13:11
Physical Exam
-
Vital Signs:
Vital Signs
Temp Pulse Resp BP Pulse Ox
97.7 F 53 20 159/45 91
11/30/23 11:55 11/30/23 12:00 11/30/23 12:00 11/30/23 12:00 11/30/23 12:00
Cardiovascular:: Regular rate and rhythm
Lung Excursion:: Abnormal (decreased)
Abdomen:: Nontender and Soft
Extremity Edema:: None: Bilateral:
Sweeney Catheter: No
--- NOTE | 2023-11-30 12:16 | W.PN.UPDATE ---
Update Note
Progress Note Update
PD note:
FV 2lit, Q4 exchanges
2.5 and 4.2 alternate
UF noted 400cc
[2023-11-30] MEDS: NOVOLOG FLEXPEN-HIGH RESISTANCE 12 UNITS SC (12:29)
[2023-11-30] MEDS: MARINOL PO (12:30)
[2023-11-30] MEDS: MARINOL 2.5 MG PO ×2 (12:36→18:04)
[2023-11-30 16:45] LABS: Glucose - Point of Care 297 mg/dl (70-99)
[2023-11-30] MEDS: NOVOLIN N vial 0.119999999999999996 UNITS SC (16:51)
[2023-11-30] MEDS: COUMADIN 2 MG PO (18:04)
[2023-11-30] MEDS: NOVOLOG FLEXPEN-HIGH RESISTANCE 7 UNITS SC (18:05)
[2023-11-30] MEDS: LIPITOR 40 MG PO (21:38)
[2023-12-01] VITALS (27 sets, daily range): BP systolic 100–176; BP diastolic 24–97; PULSE 61–62; O2SAT 92–93; BMI 29.3
[2023-12-01] MEDS: SOLU-MEDROL PF 40 MG IV ×5 (00:46→23:51)
[2023-12-01 01:18] LABS: Glucose - Point of Care 302 mg/dl (70-99)
[2023-12-01] MEDS: NOVOLOG FLEXPEN 10 UNITS SC (01:19)
[2023-12-01 06:44] LABS: Hematocrit 27.3 % (39.0-52.0); Hemoglobin 9.4 g/dL (13.0-18.0); Mean Corp Hgb Conc. 34.4 g/dL (33.0-37.0); Mean Corpuscular Hgb 29.2 pg (27.0-31.0); Mean Corpuscular Volume 84.8 fL (80.0-94.0); Mean Platelet Volume 11.6 fL (7.4-10.4); Platelet Count 182 10^3/uL (130-400); Red Blood Cell Count 3.22 10^6/uL (4.70-6.10); Red Cell Dist. Width 15.2 % (11.5-14.5); White Blood Cell Count 13.6 10^3/uL (4.8-10.8)
[2023-12-01 06:47] LABS: INR 3.09; PT 32.4 Sec (11.4-14.6)
--- NOTE | 2023-12-01 07:00 | PTCARENOTE ---
report received from nightshift RN. walking rounds completed. Pt drowsy, arouses to voice. AAOX3, forgetful at times, flat affect. SR/SB on telemetry heart rate 50-60s. pulses weakly palpable. trace edema. pt on high flow nasal cannula 50L, 60%.
lung sounds diminished throughout. hypoactive bowel sounds, abdomen round- PD cath right abdomen- PD q 4 hours. Anuric. see worklist for full nursing assessment and interventions.
[2023-12-01 07:15] LABS: Blood Urea Nitrogen 78 mg/dl (9-20); Calcium 7.7 mg/dl (8.4-10.2); Carbon Dioxide 27 mmol/L (22-30); Chloride 91 mmol/L (98-107); Estimated Creatinine Clearance 11 ml/min; Glucose 233 mg/dl (70-99); Magnesium 2.1 mg/dl (1.6-2.3); Phosphorus 4.9 mg/dl (2.5-4.5); Potassium 3.9 mmol/L (3.5-5.1); Sodium 127 mmol/L (135-145); eGFR 8.57
--- NOTE | 2023-12-01 07:27 | PN.DE.MGMTRT ---
Insulin Management
- -
11/18/2023 Diabetes Management Consult
Admitted 11/12 for R foot wound, confusion, SOB, swelling. PMH renal failure with peritoneal dialysis, HTN, PVD type 2 diabetes. Prior to admission chart reflects he was taking 60 units Basaglar daily with NovoLog 28 units BID. A1C 8.6%. Patient
had cardiac arrest 11/16 now intubated on mechanical ventilation and insulin infusion. Prior to this patient was receiving Lantus in AM with AC NovoLog at reduced doses.
Will continue glycemic protocol at this time. If patient is weaned off of ventilator will assess for readiness to transition to subcutaneous insulin.
11/19/2023: Diabetes Management F/U:
Pt extubated last evening. Doing well, sitting up in bed, offers no complaints.
Glucose trended up to 197, remains on glycemic protocol requiring 0.8-7 units of insulin/ hr while NPO.
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
Will transition off drip. Give Lantus 30 units NOW, turn drip off 1 hr after.
Start AC NovoLog 8 units and moderate corrective insulin with meals. Start 1800 ADA diet. Accucheks AC/HS
Will follow for further needed insulin adjustments. Plan of care d/w pt and Nurse.
11/22/2023: Diabetes Management F/U:
Pt transferred back to ICU for increased O2 requirements.
Currently NPO for R/LHC today. Premeal glucose trended up to 345 requiring 3-7 units of corrective insulin.
Will make no changes to regimen at this time, reassess after procedure and make necessary adjustments to insulin dose
11/23/2023 Diabetes Management Follow Up
Patient glucose controlled on current regimen, trended down to 79 @ HS. Will slightly decrease AM Lantus dose to 27 units to start Wednesday, 11/24.
Patient is NPO for procedure, will order one time dose of Lantus 15 units now.
11/24/2023 Diabetes Management Follow Up
Cardiac cath cancelled yesterday due to patient hypoxia. Dexamethasone 4 mg BID started last evening, glucose up to 460. Insulin administered. Fasting glucose 393. Glycemic protocol has been started. Will continue today and reassess in AM/
11/25/2023 Diabetes Management Follow up
Patient remains on steroids, glucose controlled on glycemic protocol requiring .8 to 10 units NovoLog per hour. He is eating meals and receiving supplemental insulin. Will continue glycemic protocol, assess in AM for readiness to transition to
subq regimen. I spoke with patient nurse.
11/26/2023: Diabetes Management F/U:
Patient remains on steroids- Dexa 4mg Q8hrs, continues on glycemic protocol, glucose range 89-219 requiring .5 to 12 units NovoLog per hour.
He is eating meals and receiving supplemental insulin.
Plan is to start steroid taper today, will continue glycemic protocol for now and reassess later today for readiness to transition to SQ insulin.
11/29/2023: Diabetes Management F/U:
Steroids were tapered down to Pred 40mg daily--> transitioned off CC glycemic protocol to SQ insulin over the weekend
Noted for worsening oxygenation--> resumed high dose IV steroids--> Hyperglycemia.
Pt resting in bed, offers no complaints. Glucose has remained elevated, FBG 301 this AM, premeal range 199 to 345, Dr. Lopez has increased his AC NovoLog dose to 8 units. Will increase Lantus to 35 units, 1st dose will be given tomorrow AM. Cont
current AC dose and corrective insulin with meals
Will closely follow and adjust insulin if necessary.
11/30/2023 Diabetes Management Follow up
Patient continues on steroids. Glucose remains elevated > 200. Lantus to increase to 35 units this AM. Novolog increased yesterday to 12 units, continued to require corrective insulin. Will increase AC novolog to 15 units. Will follow
12/01/2023 Diabetes Management Follow up
Patient continues on steroids. Insulin increased yesterday, glucose remains > 200. Lunch standing dose of novolog not given, glucose 364. Additional NPH given. Patients home Basaglar reported at 60 units. Will increase AM lantus to 40 units,
will increase AC novolog to 18 units.
Diabetes History
- -
Type of Diabetes: 2 requiring insulin
Pre-Admission Diabetes Regimen
12/01/23
06:11
Creatinine 6.7 H*
Lab Results
Hemoglobin A1c 8.6 % (4.0-5.6) H 11/13/23 06:09
Insulin Pump Settings
IP Diabetes Regimen
11/30/23 11/30/23 11/30/23
07:48 11:37 16:32
Glucose
POC Glucose 320 H 364 H 297 H
12/01/23 12/01/23
01:07 06:11
Glucose 233 H
POC Glucose 302 H
Meal type: Breakfast
Amount consumed: 100%
Patient Education
[2023-12-01] MEDS: LOPRESSOR 25 MG PO ×2 (07:37→19:23)
[2023-12-01] MEDS: MAGNESIUM OXIDE 500 MG PO (07:37)
[2023-12-01] MEDS: PROTONIX 40 MG PO (07:37)
[2023-12-01] MEDS: ZETIA 10 MG PO (07:37)
[2023-12-01] MEDS: LOW STRENGTH ASPIRIN 81 MG PO (07:37)
--- NOTE | 2023-12-01 08:34 | W.PN.CARDCBS ---
Today's Communication / Plan
-
For eventual left heart cath once pulm status has improved
Monitor QTc for prolongation.
Impression / Plan
-
.
PCP: Dr. Susan Starkey
Cardiology: Unknown
Nephrology: [facility]
Vascular surgery: Dr. Sweeney
Impression:
Respiratory failure, worsening today, O2 requirements on high-flow
In-hospital cardiac arrest 11/17/23
s/p VT arrest
s/p shock x1 and Epi x1 11/17/23
Prolonged QT
Admitted with TME, uremia and anasarca 11/12/23
ESRD on PD
failing at home PD due to cognitive dysfunction
Elevated Troponin
CAD s/p CABG outside hospital 1995
Acute HFpEF, improving
Anasarca, improving
PAD
fem pop bypass 2015
right CEA at [place] 03/2019
left CEA at [place] 07/2019
right SFA VOCATIONAL NURSE 2020
Chronic warfarin OAC for PAD
DM 2
Echo 11/15/23: EF 55-60%, trace MR
Echo 11/17/23: LVEF 50% with mild LVH. No significant valve disease.
Cath: June 24, 2012 for atypical chest discomfort via right common femoral artery:
Aortic pressure: 141/64, mean of 95 mmHg. LVEDP of 12. Weight 102kh.
Coronary circulation: Mid LAD: 100% stenosis.
Mid circumflex: 100% stenosis
OM1: 100% stenosis with good blood supply to the distal myocardium from a graft.
Proximal RCA: Discrete 95% stenosis. Mid RCA with 95% stenosis.
Graft to the LAD: The graft was normal size sequential free radial from OCAMPO. Graft angiography showed minimal luminal irregularities.
Graft to the first diagonal: The graft was a OCAMPO, it was normal.
Graft to the first obtuse marginal: The graft was a OCAMPO from first diagonal. Graft angiography showed no evidence of disease.
Graft to the mid RCA: The graft was a FILIPE and it was normal.
Summary of outpatient cardiology records: EKG from June 29, 2023 showing sinus rhythm with right bundle branch block and secondary ST-T wave changes. He was last seen in the office on June 29, 2023 and did not repeat any active cardiac
complaints. They noted a history of proximal three-vessel coronary artery disease which led to coronary artery bypass grafting done in 1995 with a OCAMPO to diagonal 1 and obtuse marginal 3, FILIPE to mid RCA, radial conduit of the OCAMPO to diagonal 1
and sequentially to LAD. Heart catheterization was repeated on June 24, 2012 which showed patent bypass grafts however we do not have a detailed cath report.
-Bilateral carotid artery disease with right carotid endarterectomy on April 04, 2019 and left CEA in July 2019.
-Femoral to popliteal VOCATIONAL NURSE April 23, 2016, stenting of the right superficial femoral and popliteal arteries with angioplasty of the proximal right superficial femoral artery, angioplasty of the left superficial femoral artery with minimal residual
diffuse disease.
-Left Pharm pop VOCATIONAL NURSE angioplasty of multifocal superficial femoral artery in September 2012, VOCATIONAL NURSE of tibioperoneal trunk. Left popliteal artery stent was not placed because of concerns for stent fracture in September 2012.
-Last myocardial perfusion study on May 13, 2023 without evidence of ischemia, LVEF 51%
-Patient has chronic claudication complaints per outpatient notes with limited mobility and has been maintained on chronic anticoagulation with warfarin.
Right heart cath 1 05/24/24: RA 8, 38/15, wedge 13, cardiac index 1.5
Plan:
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
Eventual left heart cath to eval coronary anatomy once pulm status is improved. Pending left heart cath results then further discussion about candidacy for ICD.
Monitor QTc. Follow EKGs and potassium and magnesium keeping K>4 and Mg>2.
EKG pending
Consider Hydralazine and nitrates for afterload reduction and help with HTN however he appears euvolemic. Getting PD for volume control as per nephrology
Wedge stable by last right heart cath.
INR 3.09 on coumadin. Coumadin would have to be held for cath.
Discussed with nursing.
HPI: [facility] with increasing SOB after he had trouble keeping up with his home PD treatments and he was admitted with acute HF and volume overload, cardiology is now consulted after a VT arrest today. Patient was admitted
11/12/23 with anasarca, SOB and failing PD at home. Patient lives in [place] and follows with a licensed customs broker at [facility], but came to for care. Patient and also noted increasing somnolence and some confusion which overall seemed to be
contributing to trouble with maintaining PD treatments at home resulting in weight gain and SOB. Weight was up at least 10 lbs on admission. Patient was admitted and seen by nephrology at , PD was restarted in the hospital. Patient had an echo
11/15/23 that showed a preserved EF. There is a h/o CABG at an outside hospital in 1995, primary courier unknown and patient has never seen cardiology at before. Patient with hyperkalemia on admission that resolved with PD. QT was prolonged to
486 ms on ECG on admission 11/12/23 in the setting of RBBB, then 522 ms 11/16/23, then 543 ms this afternoon at 1330. Patient with a run of VT and confusion noted by nursing around 1330 today and magnesium rider ordered. Last magnesium level was 1.6 on
11/16/23. Patient then had sustained VT and cardiac arrest prompting code 9. Cardiology arrived with rest of the team. Patient undergoing CPR and received Epi x1 and shocked x1 with ROSC. Patient intubated by anesthesia team.
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
Subjective
Date of Service: December 01, 2023
Pt seen and examined. No cp
Objective
Labs:
12/01/23 06:11
12/01/23 06:11
Labs
Hgb 9.4 g/dL (13.0-18.0) L 12/01/23 06:11
Hct 27.3 % (39.0-52.0) L 12/01/23 06:11
Plt Count 182 10^3/uL (130-400) 12/01/23 06:11
PT 32.4 Sec (11.4-14.6) H 12/01/23 06:11
INR 3.09 12/01/23 06:11
APTT 80.4 Sec (23.4-35.0) H 11/28/23 03:58
Sodium 127 mmol/L (135-145) L 12/01/23 06:11
Potassium 3.9 mmol/L (3.5-5.1) 12/01/23 06:11
BUN 78 mg/dl (9-20) H 12/01/23 06:11
Creatinine 6.7 mg/dL (0.7-1.3) H* 12/01/23 06:11
Glucose 233 mg/dl (70-99) H 12/01/23 06:11
Vital Signs and I&O:
Vital Signs
Temp Pulse Resp BP Pulse Ox
97.3 F 55 14 175/72 93
12/01/23 06:25 12/01/23 07:37 12/01/23 06:00 12/01/23 07:37 12/01/23 07:54
Vital Signs
Temp Pulse Resp BP Pulse Ox
97.3 F 55 14 175/72 93
12/01/23 06:25 12/01/23 07:37 12/01/23 06:00 12/01/23 07:37 12/01/23 07:54
Intake & Output
11/29/23 11/30/23 12/01/23 12/02/23
06:59 06:59 06:59 06:59
Intake Total 2063 / 2063 1420 / 1420 360 / 360
Output Total 200 / 200 400 / 400 800 / 800 300 / 300
Balance 1864 / 1864 1020 / 1020 -440 / -440 -300 / -300
Physical Exam
Physical Exam
General: No acute distress, AAOX3
Neck: Negative JVD
Heart: Regular, Negative S3 positive S1/S2, Negative S4, No murmur
Lungs: CTA b/l, negative wheezes/rales/rhonchi
Abd: Positive BS, NT/ND, neg rebound/rigidity/guarding
Ext: Negative cyanosis/clubbing/edema
Neuro: nonfocal
[2023-12-01] MEDS: LANTUS 0.400000000000000022 UNITS SC (08:51)
[2023-12-01 09:02] LABS: Glucose - Point of Care 298 mg/dl (70-99)
[2023-12-01] MEDS: NOVOLOG FLEXPEN-HIGH RESISTANCE 7 UNITS SC (09:10)
[2023-12-01] MEDS: NOVOLOG FLEXPEN 18 UNITS SC ×2 (09:11→17:50)
[2023-12-01] MEDS: MIRALAX 17 GRAMS PO (09:11)
--- NOTE | 2023-12-01 09:49 | W.PN.HOSP.TC ---
Today's Communication/Plan
-
see bold
Assessment / Plan
Assessment / Plan
Gen: continues to remain NAD, awake and alert, well-developed, well-nourished
Eyes: EOMI, PERRLA, no scleral icterus.
Neck: supple.
CV: RRR, +S1/S2, no m/r/g.
Resp: continues to remain CTAB anteriorly
Abd: +BS, soft, NT, ND
Skin: No rashes.
Neuro: remains CN 2-12 intact, non-focal.
Psych: Normal mood and affect.
CT chest 11/23/23:
1). There is no pulmonary embolism
2).There is diffuse groundglass airspace disease throughout both lungs, most prominent at the lung bases without associated pleural effusions or overfilling of the pulmonary vasculature suggesting that this diffuse interstitial pneumonia such as may
be seen with COVID 19.
3). Moderate-large volume abdominal ascites
4). Postoperative changes with wire sternal sutures and mediastinal clips
CXR 11/26/23: Hazy patchy bibasilar opacification increased in comparison to most recent prior chest radiograph, possibly representing pneumonitis.
CXR 11/28/23: Worsening diffuse interstitial pneumonia.
Acute hypoxic respiratory failure:
-After his prolonged hospital course and based on the evidence we have at hand, it appears etiology is acute lung injury due to acute interstitial pneumonia/inflammatory pneumonitis per pulm
-Was on IV dexamethasone, then transitioned to prednisone, now on Solumedrol 40mg IV Q6H
-was on insulin drip for steroid-induced hyperglycemia, now transitioned to SC insulin. Increase Lantus to 40U, increase premeal aspart to 18U, high resistance SSI. 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
-was weaned down to mid flow 8L O2 on 11/27/23 from High Flow Oxygen prior. Now on 55L/67% highflow.
-No need for antibiotics
ESRD on PD:
-Continue PD per nephrology. Nephrology following.
-Volume effectively coming off but would not be feasible upon discharge for either home (prob can not do it by himself) or SNF (would not be accepted).
-Would likely require conversion to hemodialysis but will defer to nephrology for timing
Cardiopulmonary arrest/CAD:
-VT/V Fib arrest on 11/17/23 with ROSC
-V. tach-->TDP-->V Fib-->PEA. CPR abt 3 min and Epinephrine x3. V Fib s/p shock 360J x1--> ROSC achieved.
-On aspirin, beta-blockers increased metoprolol 25 mg twice a day, on statin atorvastatin 40 mg p.o. nightly.
-Latest EKG if QTc is 516ms, monitor
-Keep K above 4 and mag above 2
-Continue cardiac monitoring
-Right heart cath showed PCWP of 13 on 11/24/23
-Transthoracic echocardiogram--> EF 50%, mild concentric left ventricular hypertrophy, no significant changes from prior echo.
-Cardiology following
-Known history of CAD with CABG back in 1995.
-Plan for left heart cardiac cath once respiratory status stable (possible AICD)
Peripheral vascular disease:
-cont ASA/statin.
-cont warfarin
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
-was on Heparin drip, now transitioned to warfarin on 11/25/23 (no bridge was needed). INR now therapeutic.
Acute metabolic encephalopathy:
-was multifactorial in nature with uremia and hypoxemia but now back to his baseline.
-Head CT with impression of no acute intracranial abnormality but some chronic changes noted.
-MRI brain negative for acute stroke or pathology.
-Continue to monitor mental status.
Other problems:
Essential hypertension: cont BB
Atrial tachycardia: Continue BB
Chronic diastolic CHF: cont BB and maintenance of euvolemia via hemodialysis
Hypokalemia, resolved
Hypomagnesemia: cont PO Mg
Hyperlipidemia: cont statin/Zetia
Depression: Now off Zoloft to avoid prolonged QTc.
FULL/coumadin
Anticipated Discharge: > 48 hours
Subjective/Interval History
-
Date of Service: December 01, 2023
Pt says his breathing is a little 'Rough' especially when he gets up.
Objective Data
-
Labs:
Laboratory Results
12/01/23
06:11
WBC 13.6 H
Hgb 9.4 L
Hct 27.3 L
Plt Count 182
PT 32.4 H
INR 3.09
Sodium 127 L
Potassium 3.9
Chloride 91 L
Carbon Dioxide 27
BUN 78 H
Creatinine 6.7 H*
Glucose 233 H
Calcium 7.7 L
Vital Signs:
Vital Signs
Temp Pulse Resp BP Pulse Ox
97.3 F 58 22 132/57 96
12/01/23 06:25 12/01/23 09:02 12/01/23 09:02 12/01/23 09:02 12/01/23 09:00
I&O
11/30/23 12/01/23 12/02/23
06:59 06:59 06:59
Intake Total 1420 / 1420 360 / 360 480 / 480
Output Total 400 / 400 800 / 800 300 / 300
Balance 1020 / 1020 -440 / -440 180 / 180
--- NOTE | 2023-12-01 10:02 | W.PN.PUL3 ---
Today's Communication / Plan
-
Continue high-flow nasal cannula and wean FiO2 + flow as tolerated to keep SpO2 >90-94%
Continue high dose steroids --> tomorrow would wean steroids to 40mg IV q12hr
Continue PD
Up OOB as tolerated
Encourage IS use
Pulmonary service will continue to follow along (pt is IMU status)
Assessment
-
Assessment:
Mr Blair Thakkar is a 63/M adm 11-12 with confusion and EV edema. Known h/o CKD on PD, recently not able to do PD himself due to confusion, did. At ER, confused, hypoxemic. Seen by Neurology, no acute findings on CT and MRI brain. Seen by
Renal, resumed PD soon after adm.� VTach episode on night 11-16, received IV Mag with resolution. VTach returned on early afternoon 11-17, started Mag IV infusion, MS continued deteriorating, became unresponsive, VTach deteriorated to TDP, then
VFib, shock at 360K x1, developed PEA, received 3 doses epinephrine, total CPR time about 3 min with ROSC, intubated by anesthesia with no reported difficulty
Impression:
Acute hypoxemic respiratory failure: Bilateral infiltrates
Differential diagnosis includes pulmonary edema/inflammatory pneumonitis/less likely infectious
Cardiac arrest �11-17-23
VTach, TDP, VFib, PEA
Low normal serum Mg on 11-16 and given IV Mag on 11-16 and also 11-17 (Mg was running at time of arrest)
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
CKD on PD
CAD s/p CABG
PVD s/p bilateral EV stenting
Emergent stenting RLE Jun 2021 ()
DM
HTN
HLD
Depression
Obesity

Plan:
11/21/2023: Transferred back to the ICU with increased work of breathing necessitating�noninvasive mechanical ventilation.� Acute onset.
Chest x-ray at that time with ? mild pulmonary edema bilaterally.
CT chest 11/23/2023: Extensive bilateral groundglass opacities with subsegmental bibasilar atelectasis.� No pulmonary embolism.
-
Acute Hypoxemic Respiratory Failure: worsening bilateral infiltrates on CXR from 11/28/2023 - suspect an inflammatory pneumonitis; cannot rule out aspiration with subsequent acute lung injury.� Patient has never been on amiodarone.
No antibiotics were given-no evidence for infection.
Right heart catheterization 11/24/2023: Not consistent with volume overload.
Responding to steroids -->�currently on solumedrol 40mg IV q6hr (after being on prednisone 40mg daily x 2 days prior on 11/27 + 11/28, and before that was on decadron 4mg IV q8hr from 11/24 - 11/26)- adjust as pt improves;� trend CRP, BNP and procal -->
CRP is downtrending, BNP remains >27k
-
continue physical therapy/Occupational Therapy.
Speech evaluation noted: No overt aspiration.� Continue with aspiration precautions.
-
Monitor BG with goal BG 140-180mg/dL;� use basal/bolus with high-dose ISS; was previously on insulin gtt
-
If there is no improvement, will consider bronchoscopy with BAL.

VTach evening 11-16-no further episodes.
Low normal Mg, replaced IV at time of event
No gross e-lyte abnormalities at time of VTach, TDP, VFib/PEA
Status post cardiac arrest 11-17
Required intubation-CPR, 3 epi doses, shock x1 at 360. CPR for about 3 min till ROSC
Extubated 11/18/2023.
Continue to monitor electrolytes with goal K>4, Mg>2
Continue ekg monitor.
Cardiology continues to follow.
-
Nephrology continues to follow.
Continue to maintain negative fluid balance via peritoneal dialysis.
-
Antibiotics discontinued 11/19/2023.� No evidence for infection.
Restarted on cefepime 11/21/2023: � No evidence for infection.� Discontinued antibiotics.
Procal has downtrended compared to prior value, indicating we have adequate source control
All cultures were negative.
-
Hyperglycemia: Steroid-induced
Goal BG 140-180 mg/dL
Adjust basal/bolus insulin dosing as required
-
On chronic coumadin for h/o PVD s/p stents
Continue Coumadin with goal 2-3 - reduce his coumadin to 2mg daily however given the sharp rise in INR today (currently 2.5 from 1.55). Follow INR - if indication is for DVT ppx then goal 1.5 - 1.9 is fine, but if indication is for PVD stent then
INR should be >2.� I want his INR to be 2-3 given he has Hx of stents.
Daily INR
Monitor for bleeding
-
Pulmonary service will continue to follow.

Diagnostic tests:
CXR 11-30-2023: Compared to CXR from 11/28/2023; Moderate diffuse interstitial pneumonia, not significantly changed when compared with prior study
CXR 11-17-24 pm: interim intubation and GT. pulm vasc and parenchymal congestion.
CXR - and 08-31 AM, portable, improved pulm vasc and parenchymal congestion, sternotomy
TTE 11-17-23 (post cardiac arrest)
CONCLUSIONS
�Limited study
�Normal left ventricular chamber size. Mild concentric left ventricular
�hypertrophy. Normal left ventricular systolic function. Left ventricular
�ejection fraction is 50% by Grimaldo' s method.� Diastology not assessed.
�Since echocardiogram November 15, 2023 which was reviewed, there is no
�significant change.
TTE 11-15-23
CONCLUSIONS
�Normal left ventricular chamber size. Normal left ventricular systolic
�function. Normal regional wall motion. Mild concentric left ventricular
�hypertrophy. Left ventricular ejection fraction is 55-60% by visual estimate.
�Diastolic function indeterminate due to atrial fibrillation.
�Mildly thickened mitral valve leaflets. Mitral annular calcification. Mitral
�valve opens normally. Trace mitral regurgitation.
Subjective Data
-
Date of Service:
Date of Service: December 01, 2023
Chief Complaint: Pulmonary Follow Up
Subjective:
Seen this AM. Tired today. No SOB at rest. On HFNC at 60% FiO2. PD in place. No acute events reported from overnight.
Review of Systems
General: Other (negative unless mentioned above)
Objective Data
Data Reviewed
Vital Signs / I&O / Oxygen:
Vital Signs
Temp Pulse Resp BP Pulse Ox
97.5 F 62 18 120/97 91
12/01/23 17:24 12/01/23 18:01 12/01/23 18:01 12/01/23 18:01 12/01/23 18:01
Intake and Output
11/30/23 12/01/23 12/02/23
06:59 06:59 06:59
Intake Total 1420 / 1420 360 / 360 680 / 680
Output Total 400 / 400 800 / 800 500 / 500
Balance 1020 / 1020 -440 / -440 180 / 180
SaO2 [NIV (Non Invasive 95
Ventilation)]
SaO2 [CPAP/PSV] 95
SaO2 [A/C] 96
SaO2 91
Nasal Cannula flow liters per 50
minute
Physical Exam
General: Respiratory Distress (negative at rest), Comfortable and Chills (negative)
HEENT: Normocephalic, Anicteric and Moist Mucous Membranes
Cardiovascular: S1-S2 and Peripheral Edema (negative)
Respiratory: Wheeze (n), Crackles (Bilaterally (L>R)), Non-Labored Respirations and Stridor (n)
GI: Soft, Non Distended and Non Tender
Neurology: Awake, Alert and No Motor Deficits
Skin: Warm, Dry and Jaundice (negative)
Labs/Micro/Reports
Lab Data
12/01/23 06:11
12/01/23 06:11
Laboratory Results
12/01/23
06:11
PT 32.4 H
INR 3.09
--- NOTE | 2023-12-01 10:02 | W.PN.NEPH.PH ---
Today's Communication / Plan
-
- continue PD wtih 2.5% and 4.25% bags
Assessment/Plan
-
Assessment
-ESRD on PD
-volume overload
-CHF
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
-PAD
-HTN
-edema
-CAD/CABG
-DM2
-Hyponatremia
-In-hospital cardiac arrest 11/17/23
-VT arrest
s/p shock x1 and Epi x1 11/17/23
Plan
remains on high flow, CXR no change
likely volume is not contributing to his resp symp
BP stable with out hypotension
cotn PD 2.5 and 4.2 alternate, weight up today but likely had fluid in belly. UF 880
he has minimal UF with 2.5 bags,
-there is a possibility that he will need to be converted to HD here depending on volume status and for home discharge planning. discussed with patient and he is amenable to the change if needed
Hyponatremia-maintain FR, part of it from hyperglycemia corrected 131
monitor h/h
BP labile on low dose BB -monitor
-
-
Date of Service: December 01, 2023
CC / HPI / ROS
-
Chief Complaint:
ESRD
History of Present Illness:
PD in progress
s/p code 9 with VT 11/17/23
on high flow O2 and remains on IV Decadron
mild hypotension last bight but high this am
hb 9.5 no change, na corrected 131, BG 300
Review of Systems:
no fever
no CP
no SOB at rest
Weights down
Labs
-
Labs:
WBC 13.6 10^3/uL (4.8-10.8) H 12/01/23 06:11
RBC 3.22 10^6/uL (4.70-6.10) L 12/01/23 06:11
Hgb 9.4 g/dL (13.0-18.0) L 12/01/23 06:11
Hct 27.3 % (39.0-52.0) L 12/01/23 06:11
Plt Count 182 10^3/uL (130-400) 12/01/23 06:11
Sodium 127 mmol/L (135-145) L 12/01/23 06:11
Potassium 3.9 mmol/L (3.5-5.1) 12/01/23 06:11
Chloride 91 mmol/L (98-107) L 12/01/23 06:11
Carbon Dioxide 27 mmol/L (22-30) 12/01/23 06:11
BUN 78 mg/dl (9-20) H 12/01/23 06:11
Creatinine 6.7 mg/dL (0.7-1.3) H* 12/01/23 06:11
eGFR 8.57 12/01/23 06:11
Glucose 233 mg/dl (70-99) H 12/01/23 06:11
Calcium 7.7 mg/dl (8.4-10.2) L 12/01/23 06:11
Phosphorus 4.9 mg/dl (2.5-4.5) H 12/01/23 06:11
Tkl-H-Sjakpzslsmk Pept > 75228 pg/ml 11/29/23 04:30
Albumin 2.7 g/dl (3.5-5.0) L 11/12/23 13:11
Physical Exam
-
Vital Signs:
Vital Signs
Temp Pulse Resp BP Pulse Ox
97.3 F 58 22 132/57 96
12/01/23 06:25 12/01/23 09:02 12/01/23 09:02 12/01/23 09:02 12/01/23 09:00
Cardiovascular:: Regular rate and rhythm
Respiratory:: Bilateral: CTA
Lung Excursion:: Normal
Abdomen:: Nontender and Soft
Bowel Sounds:: Normal
Extremity Edema:: None: Bilateral:
Sweeney Catheter: No
[2023-12-01] MEDS: MARINOL 2.5 MG PO ×2 (11:22→17:16)
[2023-12-01] MEDS: XANAX 0.5 MG PO ×2 (11:29→22:03)
[2023-12-01] MEDS: NOVOLOG FLEXPEN-HIGH RESISTANCE 12 UNITS SC (12:37)
[2023-12-01] MEDS: NOVOLOG FLEXPEN SC (12:39)
[2023-12-01 12:47] LABS: Glucose - Point of Care 382 mg/dl (70-99)
[2023-12-01] MEDS: ANESTHETIC LOZENGE 1 LOZENGE PO (13:04)
--- NOTE | 2023-12-01 15:23 | CM ---
CM following re: discharge planning.
Discussed in rounds, reviewed pt's chart, met with pt. Per Rounds meeting, pt requires 60 L HFNC with FIO2 60%, continue PD.
PT and OT continue to recommend SNF level of care. Due to PD there is no option to receive PD at a SNF. [facility] denied a referral.
D/C plan: home when medically stable with [facility] and family support.
CM will follow with discharge plan updates as hospitalization progresses
[2023-12-01] MEDS: APRESOLINE 10 MG IV (15:29)
[2023-12-01 17:04] LABS: Glucose - Point of Care 308 mg/dl (70-99)
[2023-12-01] MEDS: COUMADIN 1 MG PO (17:48)
[2023-12-01] MEDS: NOVOLOG FLEXPEN-HIGH RESISTANCE 10 UNITS SC (17:49)
[2023-12-01] MEDS: ROXICODONE 10 MG PO (19:23)
[2023-12-01] MEDS: LIPITOR 40 MG PO (22:03)
[2023-12-01 23:11] LABS: Glucose - Point of Care 293 mg/dl (70-99)
[2023-12-02] VITALS (11 sets, daily range): BP systolic 106–156; BP diastolic 39–110; BMI 28.3
--- NOTE | 2023-12-02 01:19 | PTCARENOTE ---
Assumed care of patient from previous RN at 1920. Patient alert and oriented. Anxious; prn Xanax administered. Resting comfortably on HFNC 50L/60%. Slight TRISTAN. Lung sounds shallow/diminished. POX 94-98% at rest. NSR/SB with first degree av block,
BBB, prolonged QT and pvcs. VSS. PD performed as ordered. Site c/d/i. Abdomen round/obese. Hypo BS. Constipated. Per previous RN, appetite poor. Anuric. Full assessment and care as charted on worklist.
[2023-12-02] MEDS: SOLU-MEDROL PF 40 MG IV ×2 (05:06→11:03)
[2023-12-02 05:29] LABS: INR 3.23; PT 33.5 Sec (11.4-14.6)
[2023-12-02 07:35] LABS: Glucose - Point of Care 352 mg/dl (70-99)
[2023-12-02] MEDS: LANTUS 0.400000000000000022 UNITS SC (07:53)
[2023-12-02] MEDS: MAGNESIUM OXIDE 500 MG PO (07:54)
[2023-12-02] MEDS: PROTONIX 40 MG PO (07:54)
[2023-12-02] MEDS: LOW STRENGTH ASPIRIN 81 MG PO (07:54)
[2023-12-02] MEDS: ZETIA 10 MG PO (07:54)
[2023-12-02] MEDS: LOPRESSOR 25 MG PO ×2 (07:54→20:19)
[2023-12-02] MEDS: NOVOLOG FLEXPEN-HIGH RESISTANCE 12 UNITS SC ×2 (07:54→12:09)
[2023-12-02] MEDS: MIRALAX 17 GRAMS PO (07:55)
[2023-12-02] MEDS: NOVOLOG FLEXPEN 18 UNITS SC (07:55)
--- NOTE | 2023-12-02 07:57 | PN.DE.MGMTRT ---
Insulin Management
- -
11/18/2023 Diabetes Management Consult
Admitted 11/12 for R foot wound, confusion, SOB, swelling. PMH renal failure with peritoneal dialysis, HTN, PVD type 2 diabetes. Prior to admission chart reflects he was taking 60 units Basaglar daily with NovoLog 28 units BID. A1C 8.6%. Patient
had cardiac arrest 11/16 now intubated on mechanical ventilation and insulin infusion. Prior to this patient was receiving Lantus in AM with AC NovoLog at reduced doses.
Will continue glycemic protocol at this time. If patient is weaned off of ventilator will assess for readiness to transition to subcutaneous insulin.
11/19/2023: Diabetes Management F/U:
Pt extubated last evening. Doing well, sitting up in bed, offers no complaints.
Glucose trended up to 197, remains on glycemic protocol requiring 0.8-7 units of insulin/ hr while NPO.
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
Will transition off drip. Give Lantus 30 units NOW, turn drip off 1 hr after.
Start AC NovoLog 8 units and moderate corrective insulin with meals. Start 1800 ADA diet. Accucheks AC/HS
Will follow for further needed insulin adjustments. Plan of care d/w pt and Nurse.
11/22/2023: Diabetes Management F/U:
Pt transferred back to ICU for increased O2 requirements.
Currently NPO for R/LHC today. Premeal glucose trended up to 345 requiring 3-7 units of corrective insulin.
Will make no changes to regimen at this time, reassess after procedure and make necessary adjustments to insulin dose
11/23/2023 Diabetes Management Follow Up
Patient glucose controlled on current regimen, trended down to 79 @ HS. Will slightly decrease AM Lantus dose to 27 units to start Wednesday, 11/24.
Patient is NPO for procedure, will order one time dose of Lantus 15 units now.
11/24/2023 Diabetes Management Follow Up
Cardiac cath cancelled yesterday due to patient hypoxia. Dexamethasone 4 mg BID started last evening, glucose up to 460. Insulin administered. Fasting glucose 393. Glycemic protocol has been started. Will continue today and reassess in AM/
11/25/2023 Diabetes Management Follow up
Patient remains on steroids, glucose controlled on glycemic protocol requiring .8 to 10 units NovoLog per hour. He is eating meals and receiving supplemental insulin. Will continue glycemic protocol, assess in AM for readiness to transition to
subq regimen. I spoke with patient nurse.
11/26/2023: Diabetes Management F/U:
Patient remains on steroids- Dexa 4mg Q8hrs, continues on glycemic protocol, glucose range 89-219 requiring .5 to 12 units NovoLog per hour.
He is eating meals and receiving supplemental insulin.
Plan is to start steroid taper today, will continue glycemic protocol for now and reassess later today for readiness to transition to SQ insulin.
11/29/2023: Diabetes Management F/U:
Steroids were tapered down to Pred 40mg daily--> transitioned off CC glycemic protocol to SQ insulin over the weekend
Noted for worsening oxygenation--> resumed high dose IV steroids--> Hyperglycemia.
Pt resting in bed, offers no complaints. Glucose has remained elevated, FBG 301 this AM, premeal range 199 to 345, Dr. Lopez has increased his AC NovoLog dose to 8 units. Will increase Lantus to 35 units, 1st dose will be given tomorrow AM. Cont
current AC dose and corrective insulin with meals
Will closely follow and adjust insulin if necessary.
11/30/2023 Diabetes Management Follow up
Patient continues on steroids. Glucose remains elevated > 200. Lantus to increase to 35 units this AM. Novolog increased yesterday to 12 units, continued to require corrective insulin. Will increase AC novolog to 15 units. Will follow
12/01/2023 Diabetes Management Follow up
Patient continues on steroids. Insulin increased yesterday, glucose remains > 200. Lunch standing dose of novolog not given, glucose 364. Additional NPH given. Patients home Basaglar reported at 60 units. Will increase AM lantus to 40 units,
will increase AC novolog to 18 units.
12/02/2023 Diabetes Management Follow up
Patient steroids decreased to 40 mg. Insulin increased again yesterday. Glucose remains in 300's. Will again increase lantus to 50 units in AM with novolog 22 units AC with corrective insulin.
Diabetes History
- -
Type of Diabetes: 2 requiring insulin
Pre-Admission Diabetes Regimen
Lab Results
Hemoglobin A1c 8.6 % (4.0-5.6) H 11/13/23 06:09
Insulin Pump Settings
IP Diabetes Regimen
12/01/23 12/01/23 12/01/23
08:50 12:31 16:52
POC Glucose 298 H 382 H 308 H
12/01/23 12/02/23
22:59 07:23
POC Glucose 293 H 352 H
Meal type: Dinner
Meal type: Lunch
Meal type: Breakfast
Amount consumed: 50%
Amount consumed: 0
Amount consumed: 100%
Patient Education
--- NOTE | 2023-12-02 08:53 | W.PN.HOSP.TC ---
Today's Communication/Plan
-
see bold
Assessment / Plan
Assessment / Plan
Gen: NAD, awake and alert, well-developed, well-nourished
Eyes: remains EOMI, PERRLA, no scleral icterus.
Neck: supple.
CV: remains RRR, +S1/S2, no m/r/g.
Resp: CTAB anteriorly
Abd: +BS, soft, NT, ND
Skin: No rashes.
Neuro: continues to remain CN 2-12 intact, non-focal.
Psych: Normal mood and affect.
CT chest 11/23/23:
1). There is no pulmonary embolism
2).There is diffuse groundglass airspace disease throughout both lungs, most prominent at the lung bases without associated pleural effusions or overfilling of the pulmonary vasculature suggesting that this diffuse interstitial pneumonia such as may
be seen with COVID 19.
3). Moderate-large volume abdominal ascites
4). Postoperative changes with wire sternal sutures and mediastinal clips
CXR 11/26/23: Hazy patchy bibasilar opacification increased in comparison to most recent prior chest radiograph, possibly representing pneumonitis.
CXR 11/28/23: Worsening diffuse interstitial pneumonia.
Acute hypoxic respiratory failure:
-After his prolonged hospital course and based on the evidence we have at hand, it appears etiology is acute lung injury due to acute interstitial pneumonia/inflammatory pneumonitis per pulm
-Was on IV dexamethasone, then transitioned to prednisone, now on Solumedrol 40mg IV Q6H
-was on insulin drip for steroid-induced hyperglycemia, now transitioned to SC insulin. Increase Lantus to 50U, increase premeal aspart to 22U, high resistance SSI. 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
-was weaned down to mid flow 8L O2 on 11/27/23 from High Flow Oxygen prior. Now on 55L/67% highflow.
-No need for antibiotics
ESRD on PD:
-Continue PD per nephrology. Nephrology following.
-Volume effectively coming off but would not be feasible upon discharge for either home (prob can not do it by himself) or SNF (would not be accepted).
-Would likely require conversion to hemodialysis but will defer to nephrology for timing
Cardiopulmonary arrest/CAD:
-VT/V Fib arrest on 11/17/23 with ROSC
-V. tach-->TDP-->V Fib-->PEA. CPR abt 3 min and Epinephrine x3. V Fib s/p shock 360J x1--> ROSC achieved.
-On aspirin, beta-blockers increased metoprolol 25 mg twice a day, on statin atorvastatin 40 mg p.o. nightly.
-Latest EKG if QTc is 516ms, monitor
-Keep K above 4 and mag above 2
-Continue cardiac monitoring
-Right heart cath showed PCWP of 13 on 11/24/23
-Transthoracic echocardiogram--> EF 50%, mild concentric left ventricular hypertrophy, no significant changes from prior echo.
-Cardiology following
-Known history of CAD with CABG back in 1995.
-Plan for left heart cardiac cath once respiratory status stable (possible AICD)
Peripheral vascular disease:
-cont ASA/statin.
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
-was on Heparin drip, now transitioned to warfarin on 11/25/23 (no bridge was needed). INR now therapeutic. Hold coumadin tonight.
Acute metabolic encephalopathy:
-was multifactorial in nature with uremia and hypoxemia but now back to his baseline.
-Head CT with impression of no acute intracranial abnormality but some chronic changes noted.
-MRI brain negative for acute stroke or pathology.
Other problems:
Essential hypertension: cont BB
Atrial tachycardia: Continue BB
Chronic diastolic CHF: cont BB and maintenance of euvolemia via hemodialysis
Hypokalemia, resolved
Hypomagnesemia: cont PO Mg
Hyperlipidemia: cont statin/Zetia
Depression: Now off Zoloft to avoid prolonged QTc.
FULL/coumadin
Anticipated Discharge: > 48 hours
Subjective/Interval History
-
Date of Service: December 02, 2023
Objective Data
-
Labs:
Laboratory Results
12/02/23
05:09
PT 33.5 H
INR 3.23
Vital Signs:
Vital Signs
Temp Pulse Resp BP Pulse Ox
97.7 F 62 17 138/50 92
12/02/23 07:50 12/02/23 07:54 12/02/23 04:00 12/02/23 07:54 12/02/23 08:05
I&O
12/01/23 12/02/23 12/03/23
06:59 06:59 06:59
Intake Total 360 / 360 800 / 800
Output Total 800 / 800 600 / 600 300 / 300
Balance -440 / -440 200 / 200 -300 / -300
--- NOTE | 2023-12-02 08:55 | W.PN.CARDCBS ---
Today's Communication / Plan
-
No new cardiac recommendations
Left heart cath when pulmonary status improved
Eventual decision regarding ICD based on assessment of QT interval
We will follow at a distance
Impression / Plan
-
.
PCP: Dr. Susan Starkey
Cardiology: Unknown
Nephrology: [facility]
Vascular surgery: Dr. Sweeney
Impression:
Respiratory failure, worsening today, O2 requirements on high-flow
In-hospital cardiac arrest 11/17/23
s/p VT arrest
s/p shock x1 and Epi x1 11/17/23
Prolonged QT
Admitted with TME, uremia and anasarca 11/12/23
ESRD on PD
failing at home PD due to cognitive dysfunction
Elevated Troponin
CAD s/p CABG outside hospital 1995
Acute HFpEF, improving
Anasarca, improving
PAD
fem pop bypass 2015
right CEA at [place] 03/2019
left CEA at [place] 07/2019
right SFA ASSISTANT PROFESSOR OF MATHEMATICS 2020
Chronic warfarin OAC for PAD
DM 2
Echo 11/15/23: EF 55-60%, trace MR
Echo 11/17/23: LVEF 50% with mild LVH. No significant valve disease.
Cath: June 24, 2012 for atypical chest discomfort via right common femoral artery:
Aortic pressure: 141/64, mean of 95 mmHg. LVEDP of 12. Weight 102kh.
Coronary circulation: Mid LAD: 100% stenosis.
Mid circumflex: 100% stenosis
OM1: 100% stenosis with good blood supply to the distal myocardium from a graft.
Proximal RCA: Discrete 95% stenosis. Mid RCA with 95% stenosis.
Graft to the LAD: The graft was normal size sequential free radial from OCAMPO. Graft angiography showed minimal luminal irregularities.
Graft to the first diagonal: The graft was a OCAMPO, it was normal.
Graft to the first obtuse marginal: The graft was a OCAMPO from first diagonal. Graft angiography showed no evidence of disease.
Graft to the mid RCA: The graft was a FILIPE and it was normal.
Summary of outpatient cardiology records: EKG from June 29, 2023 showing sinus rhythm with right bundle branch block and secondary ST-T wave changes. He was last seen in the office on June 29, 2023 and did not repeat any active cardiac
complaints. They noted a history of proximal three-vessel coronary artery disease which led to coronary artery bypass grafting done in 1995 with a OCAMPO to diagonal 1 and obtuse marginal 3, FILIPE to mid RCA, radial conduit of the OCAMPO to diagonal 1
and sequentially to LAD. Heart catheterization was repeated on June 24, 2012 which showed patent bypass grafts however we do not have a detailed cath report.
-Bilateral carotid artery disease with right carotid endarterectomy on April 04, 2019 and left CEA in July 2019.
-Femoral to popliteal ASSISTANT PROFESSOR OF MATHEMATICS April 23, 2016, stenting of the right superficial femoral and popliteal arteries with angioplasty of the proximal right superficial femoral artery, angioplasty of the left superficial femoral artery with minimal residual
diffuse disease.
-Left Pharm pop ASSISTANT PROFESSOR OF MATHEMATICS angioplasty of multifocal superficial femoral artery in September 2012, ASSISTANT PROFESSOR OF MATHEMATICS of tibioperoneal trunk. Left popliteal artery stent was not placed because of concerns for stent fracture in September 2012.
-Last myocardial perfusion study on May 13, 2023 without evidence of ischemia, LVEF 51%
-Patient has chronic claudication complaints per outpatient notes with limited mobility and has been maintained on chronic anticoagulation with warfarin.
Right heart cath 1 05/24/24: RA 8, 38/15, wedge 13, cardiac index 1.5
Plan:
From a cardiac standpoint, he remains stable. His QT interval is borderline prolonged given that he has right bundle branch block. He is not on QT prolonging medications at this time.
He still has very high FiO2 requirements, high flow is currently at 62 L/min.
Despite this, and his renal failure on PD, he looks surprisingly well.
Will await further clinical improvement from a pulmonary standpoint and then proceed with left heart catheterization.
His cardiac arrest was polymorphic VT likely torsade. Decision regarding the need for ICD placement should be based upon the likelihood that we can prevent recurrence QT prolongation and torsades. If this is felt to be an ongoing risk, ICD
implantation should probably be undertaken. If we are confident that in a controlled environment and a stable dialysis regimen he will not develop QT prolongation then perhaps ICD implantation can be avoided.
INR is greater than 3, defer to edge gluer/hospitalist as to management. When he improves clinically and we are planning on left heart catheterization, we will need to interrupt anticoagulation.
Otherwise, no new recommendations. We will follow at a distance. Okay to leave ICU from cardiac standpoint, though high flow oxygen may preclude this.
HPI: Patient came to [facility] on 11/12/23 with increasing SOB after he had trouble keeping up with his home PD treatments and he was admitted with acute HF and volume overload, cardiology is now consulted after a VT arrest today. Patient was admitted
11/12/23 with anasarca, SOB and failing PD at home. Patient lives in [place] and follows with a urology teacher at [facility], but came to for care. Patient and also noted increasing somnolence and some confusion which overall seemed to be
contributing to trouble with maintaining PD treatments at home resulting in weight gain and SOB. Weight was up at least 10 lbs on admission. Patient was admitted and seen by nephrology at , PD was restarted in the hospital. Patient had an echo
11/15/23 that showed a preserved EF. There is a h/o CABG at an outside hospital in 1995, primary boiler erector unknown and patient has never seen cardiology at before. Patient with hyperkalemia on admission that resolved with PD. QT was prolonged to
486 ms on ECG on admission 11/12/23 in the setting of RBBB, then 522 ms 11/16/23, then 543 ms this afternoon at 1330. Patient with a run of VT and confusion noted by nursing around 1330 today and magnesium rider ordered. Last magnesium level was 1.6 on
11/16/23. Patient then had sustained VT and cardiac arrest prompting code 9. Cardiology arrived with rest of the team. Patient undergoing CPR and received Epi x1 and shocked x1 with ROSC. Patient intubated by anesthesia team.
Progress Note - Kiss Mixer
Subjective
Date of Service: December 02, 2023:
Medications: Aspirin 80 a day, atorvastatin, ezetimibe 10 mg a day, metoprolol 25 every 12, magnesium, methylprednisolone, Marinol,
PMH/PSH/SH/FH: Reviewed
Allergies: None
Outpatient medications had included cilostazol, amlodipine, bisoprolol, ezetimibe, insulin, sertraline
Review of systems negative except as above
INR today is 3.23, no other labs
EKG: QTc with right bundle is 525 ms
Objective
Labs:
12/01/23 06:11
12/01/23 06:11
Labs
Hgb 9.4 g/dL (13.0-18.0) L 12/01/23 06:11
Hct 27.3 % (39.0-52.0) L 12/01/23 06:11
Plt Count 182 10^3/uL (130-400) 12/01/23 06:11
PT 33.5 Sec (11.4-14.6) H 12/02/23 05:09
INR 3.23 12/02/23 05:09
APTT 80.4 Sec (23.4-35.0) H 11/28/23 03:58
Sodium 127 mmol/L (135-145) L 12/01/23 06:11
Potassium 3.9 mmol/L (3.5-5.1) 12/01/23 06:11
BUN 78 mg/dl (9-20) H 12/01/23 06:11
Creatinine 6.7 mg/dL (0.7-1.3) H* 12/01/23 06:11
Glucose 233 mg/dl (70-99) H 12/01/23 06:11
Vital Signs and I&O:
Vital Signs
Temp Pulse Resp BP Pulse Ox
36.5 C 62 17 138/50 92
12/02/23 07:50 12/02/23 07:54 12/02/23 04:00 12/02/23 07:54 12/02/23 08:05
Vital Signs
Temp Pulse Resp BP Pulse Ox
36.5 C 62 17 138/50 92
12/02/23 07:50 12/02/23 07:54 12/02/23 04:00 12/02/23 07:54 12/02/23 08:05
Intake & Output
11/30/23 12/01/23 12/02/23 12/03/23
07:59 07:59 07:59 07:59
Intake Total 1420 / 1660 360 / 840 800 / 800
Output Total 400 / 400 800 / 800 900 / 900
Balance 1020 / 1260 -440 / 40 -100 / -100
Physical Exam
Physical Exam
138/50, pulse 62, respirate 17, temp 36.5, O2 sats 92%, weight is 84.4 kg, overall fairly stable
No acute distress, eating breakfast, watching TV
Lungs surprisingly clear
Cardiac regular rate and rhythm, no obvious murmurs, JVD okay
Abdomen: Benign
Extremities: Without clubbing cyanosis or edema
Neuro nonfocal
--- NOTE | 2023-12-02 09:20 | W.PN.PUL3 ---
Today's Communication / Plan
-
Continue high-flow nasal cannula and wean FiO2 + flow as tolerated to keep SpO2 >90-94%
Continue high dose steroids --> raise steroids to 125mg IV q6hr given his continued requirements for FiO2 60-70% without much improvement on current steroid dose
May need to be resumed back on insulin gtt - diabetic PHLEBOTOMY INSTRUCTOR on board
Continue PD
Up OOB as tolerated
Encourage IS use
Pulmonary service will continue to follow along (pt is IMU status)
Assessment
-
Assessment:
Mr Blair Thakkar is a 63/M adm 11-12 with confusion and EV edema. Known h/o CKD on PD, recently not able to do PD himself due to confusion, did. At ER, confused, hypoxemic. Seen by Neurology, no acute findings on CT and MRI brain. Seen by
Renal, resumed PD soon after adm.� VTach episode on night 11-16, received IV Mag with resolution. VTach returned on early afternoon 11-17, started Mag IV infusion, MS continued deteriorating, became unresponsive, VTach deteriorated to TDP, then
VFib, shock at 360K x1, developed PEA, received 3 doses epinephrine, total CPR time about 3 min with ROSC, intubated by anesthesia with no reported difficulty
Impression:
Acute hypoxemic respiratory failure: Bilateral infiltrates
Differential diagnosis includes pulmonary edema/inflammatory pneumonitis/less likely infectious
Cardiac arrest �11-17-23
VTach, TDP, VFib, PEA
Low normal serum Mg on 11-16 and given IV Mag on 11-16 and also 11-17 (Mg was running at time of arrest)
Conditions HAND DECORATOR:
CKD on PD
CAD s/p CABG
PVD s/p bilateral EV stenting
Emergent stenting RLE Jun 2021 ()
DM
HTN
HLD
Depression
Obesity

Plan:
11/21/2023: Transferred back to the ICU with increased work of breathing necessitating�noninvasive mechanical ventilation.� Acute onset.
Chest x-ray at that time with ? mild pulmonary edema bilaterally.
CT chest 11/23/2023: Extensive bilateral groundglass opacities with subsegmental bibasilar atelectasis.� No pulmonary embolism.
-
Acute Hypoxemic Respiratory Failure: worsening bilateral infiltrates on CXR from 11/28/2023 - suspect an inflammatory pneumonitis; cannot rule out aspiration with subsequent acute lung injury.� Patient has never been on amiodarone.
No antibiotics were given-no evidence for infection.
Right heart catheterization 11/24/2023: Not consistent with volume overload.
Responding to steroids -->�currently on solumedrol 40mg IV q6hr (after being on prednisone 40mg daily x 2 days prior on 11/27 + 11/28, and before that was on decadron 4mg IV q8hr from 11/24 - 11/26)- considering he remains hypoxic with inability to
reduce FiO2 lower than 60%, I will raise steroids to 125mg IV q6hr; adjust as pt improves;� trend CRP, BNP and procal --> CRP continues to downtrend, BNP remains >27k
Of note, he has had bilateral groundglass opacities on his chest on former CT imaging as far back as April 2021. He denies any personal history of connective tissue disease. I will check a CTD panel including: RF, CCP-Ab, Scl-70, centromere, ADELAIDA,
CRP, MARY, Jeanne-1 and SS-A + SS-B.
-
continue physical therapy/Occupational Therapy.
Speech evaluation noted: No overt aspiration.� Continue with aspiration precautions.
-
Monitor BG with goal BG 140-180mg/dL;� use basal/bolus with high-dose ISS; was previously on insulin gtt --> may require this again. Diabetic PHLEBOTOMY INSTRUCTOR on board
-
If there is no improvement, will consider bronchoscopy with BAL. However given his high FiO2 requirements and physical deconditioning, the practicality of obtaining a BAL may not be possible without high risk of him becoming intubated.
If FiO2 not better over next 24 hrs then will re-check CT Chest.

VTach evening 11-16-no further episodes.
Low normal Mg, replaced IV at time of event
No gross e-lyte abnormalities at time of VTach, TDP, VFib/PEA
Status post cardiac arrest 11-17
Required intubation-CPR, 3 epi doses, shock x1 at 360. CPR for about 3 min till ROSC
Extubated 11/18/2023.
Continue to monitor electrolytes with goal K>4, Mg>2
Continue equipment monitor phototypesetting.
Cardiology continues to follow.
-
Nephrology continues to follow.
Continue to maintain negative fluid balance via peritoneal dialysis.
-
Antibiotics discontinued 11/19/2023.� No evidence for infection.
Restarted on cefepime 11/21/2023: � No evidence for infection.� Discontinued antibiotics.
Procal has downtrended compared to prior value, indicating we have adequate source control
All cultures were negative.
-
Hyperglycemia: Steroid-induced
Goal BG 140-180 mg/dL
Adjust basal/bolus insulin dosing as required
-
On chronic coumadin for h/o PVD s/p stents
Continue Coumadin with goal 2-3 - reduce his coumadin to 1-2mg daily for now given the sharp rise in INR (currently 3.23 from 1.55 on 11/28). Follow INR - if indication is for DVT ppx then goal 1.5 - 1.9 is fine, but if indication is for PVD stent
then INR should be >2.� I want his INR to be 2-3 given he has Hx of stents.
Daily INR and adjust Coumadin as needed
Monitor for bleeding
-
Pulmonary service will continue to follow.

Diagnostic tests:
CXR 11-30-2023: Compared to CXR from 11/28/2023; Moderate diffuse interstitial pneumonia, not significantly changed when compared with prior study
CXR 11-17-23 pm: interim intubation and GT. pulm vasc and parenchymal congestion.
CXR 11-12 and 08-31 AM, portable, improved pulm vasc and parenchymal congestion, sternotomy
TTE 11-17-23 (post cardiac arrest)
CONCLUSIONS
�Limited study
�Normal left ventricular chamber size. Mild concentric left ventricular
�hypertrophy. Normal left ventricular systolic function. Left ventricular
�ejection fraction is 50% by Grimaldo' s method.� Diastology not assessed.
�Since echocardiogram November 15, 2023 which was reviewed, there is no
�significant change.
TTE 11-15-23
CONCLUSIONS
�Normal left ventricular chamber size. Normal left ventricular systolic
�function. Normal regional wall motion. Mild concentric left ventricular
�hypertrophy. Left ventricular ejection fraction is 55-60% by visual estimate.
�Diastolic function indeterminate due to atrial fibrillation.
�Mildly thickened mitral valve leaflets. Mitral annular calcification. Mitral
�valve opens normally. Trace mitral regurgitation.
Subjective Data
-
Date of Service:
Date of Service: December 02, 2023
Chief Complaint: Pulmonary Follow Up
Subjective:
Seen this morning. at bedside. He feels more energized today but still short of breath with minimal activity. He is on high flow nasal cannula at 50 L/min, 60% FiO2. Blood sugars elevated this morning with POCT in the 350�360s. He denies
chest pain, headache, fevers or chills. He does have some phlegm that he says he feels in his chest.
Review of Systems
General: Other (12 point ROS performed and is negative unless mentioned above.)
Objective Data
Data Reviewed
Vital Signs / I&O / Oxygen:
Vital Signs
Temp Pulse Resp BP Pulse Ox
97.7 F 62 21 138/110 92
12/02/23 07:50 12/02/23 12:20 12/02/23 12:20 12/02/23 12:20 12/02/23 12:20
Intake and Output
12/01/23 12/02/23 12/03/23
06:59 06:59 06:59
Intake Total 360 / 360 800 / 800
Output Total 800 / 800 600 / 600 300 / 300
Balance -440 / -440 200 / 200 -300 / -300
SaO2 [NIV (Non Invasive 95
Ventilation)]
SaO2 [CPAP/PSV] 95
SaO2 [A/C] 96
SaO2 92
Nasal Cannula flow liters per 50
minute
Physical Exam
General: Respiratory Distress (negative), Comfortable and Chills (negative)
HEENT: Normocephalic, Anicteric and Moist Mucous Membranes
Cardiovascular: S1-S2 and Peripheral Edema (negative)
Respiratory: Wheeze (n), Crackles (Bilaterally (L>R)), Accessory Resp Muscle Use (with activity) and Stridor (n)
GI: Soft, Non Distended and Non Tender
Neurology: Awake, Alert and No Motor Deficits
Skin: Warm, Dry and Jaundice (negative)
Labs/Micro/Reports
Lab Data
12/01/23 06:11
12/01/23 06:11
Laboratory Results
12/02/23
05:09
PT 33.5 H
INR 3.23
--- NOTE | 2023-12-02 09:30 | PTCARENOTE ---
PT received in bed AAOx3 [place], pleasant but flat, HFNC 50L/60%, TRISTAN Lung sounds shallow and diminished POX 94-98% at rest. NSR/SB with first degree av block, BBB, prolonged QT, +pulses trace edema VSS. PD performed as ordered. Site C/D/I Abdomen
round/obese. Hypoactive BS, anuric, left midline flush, patent, +Blood return
[2023-12-02] MEDS: LANTUS 0.100000000000000006 UNITS SC (10:04)
[2023-12-02] MEDS: MARINOL PO ×3 (11:03→16:14)
--- NOTE | 2023-12-02 11:26 | PTCARENOTE ---
PT refused Marinol after med was already opened will waste in pyxis
--- NOTE | 2023-12-02 11:35 | CM ---
CM following re: discharge planning.
Discussed in rounds, reviewed pt's chart, met with pt. Per Rounds meeting, pt requires 50 L HFNC with FIO2 85%, continue PD, continue supportive care.
PT and OT continue to recommend SNF level of care. Due to PD there is no option to receive PD at a SNF. [facility] denied a referral.
D/C plan: home when medically stable with [facility] and family support.
CM will follow with discharge plan updates as hospitalization progresses
[2023-12-02] MEDS: XANAX 0.5 MG PO (11:56)
[2023-12-02 12:08] LABS: Glucose - Point of Care 369 mg/dl (70-99)
[2023-12-02] MEDS: NOVOLOG FLEXPEN SC (12:09)
--- NOTE | 2023-12-02 12:30 | PTCARENOTE ---
Assessment remains unchanged, PT appears flat, at bedside, long discussion with Dr Stacy, call lin in reach, safe environment, next PD @1159
--- NOTE | 2023-12-02 13:52 | W.PN.NEPH.PH ---
Today's Communication / Plan
-
- continue PD at 4.25% and 2.5%
Assessment/Plan
-
Assessment
-ESRD on PD
-volume overload
-CHF
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
-PAD
-HTN
-edema
-CAD/CABG
-DM2
-Hyponatremia
-In-hospital cardiac arrest 11/17/23
-VT arrest
s/p shock x1 and Epi x1 11/17/23
Plan
remains on high flow, CXR no change
likely volume is not contributing to his resp symp
BP stable with out hypotension
cotn PD 2.5 and 4.2 alternate, weights are stable. UF 880
he had minimal UF with 2.5 only bags
-there is a possibility that he will need to be converted to HD here depending on volume status and for home discharge planning. discussed with patient and he is amenable to the change if needed. awaiting until cardiac procedure is performed prior
to transition
Hyponatremia-maintain FR, part of it from hyperglycemia corrected 131
monitor h/h
BP labile on low dose BB -monitor
-
-
Date of Service: December 02, 2023
CC / HPI / ROS
-
Chief Complaint:
ESRD
History of Present Illness:
PD in progress
s/p code 9 with VT 11/17/23
on high flow O2 and remains on IV Decadron
mild hypotension last bight but high this am
hb 9.4 no change, no new labs this AM
Review of Systems:
no fever
no CP
no SOB at rest
Weights down
Labs
-
Labs:
WBC 13.6 10^3/uL (4.8-10.8) H 12/01/23 06:11
RBC 3.22 10^6/uL (4.70-6.10) L 12/01/23 06:11
Hgb 9.4 g/dL (13.0-18.0) L 12/01/23 06:11
Hct 27.3 % (39.0-52.0) L 12/01/23 06:11
Plt Count 182 10^3/uL (130-400) 12/01/23 06:11
Sodium 127 mmol/L (135-145) L 12/01/23 06:11
Potassium 3.9 mmol/L (3.5-5.1) 12/01/23 06:11
Chloride 91 mmol/L (98-107) L 12/01/23 06:11
Carbon Dioxide 27 mmol/L (22-30) 12/01/23 06:11
BUN 78 mg/dl (9-20) H 12/01/23 06:11
Creatinine 6.7 mg/dL (0.7-1.3) H* 12/01/23 06:11
eGFR 8.57 12/01/23 06:11
Glucose 233 mg/dl (70-99) H 12/01/23 06:11
Calcium 7.7 mg/dl (8.4-10.2) L 12/01/23 06:11
Phosphorus 4.9 mg/dl (2.5-4.5) H 12/01/23 06:11
Ous-F-Zzkfzxzjunq Pept > 24592 pg/ml 11/29/23 04:30
Albumin 2.7 g/dl (3.5-5.0) L 11/12/23 13:11
Physical Exam
-
Vital Signs:
Vital Signs
Temp Pulse Resp BP Pulse Ox
97.7 F 62 24 138/110 90
12/02/23 07:50 12/02/23 13:00 12/02/23 13:00 12/02/23 12:20 12/02/23 13:00
Cardiovascular:: Regular rate and rhythm
Respiratory:: Bilateral: Coarse
Lung Excursion:: Normal
Abdomen:: Nontender and Soft
Bowel Sounds:: Normal
Extremity Edema:: +1: Bilateral:
Sweeney Catheter: No
[2023-12-02 14:08] LABS: Erythrocyte Sed Rate 80 mm/hour (0-20)
[2023-12-02] MEDS: NOVOLIN N vial 0.119999999999999996 UNITS SC (14:54)
[2023-12-02 15:06] LABS: Glucose - Point of Care 306 mg/dl (70-99)
[2023-12-02 15:17] LABS: Rheumatoid Agglutinin Less Than 10 IU (<10 IU)
--- NOTE | 2023-12-02 15:46 | PTCARENOTE ---
PT lethargic and extremely drowsy, does wake up to verbal stimuli, sallow in color, denies any complaints, assessment remains unchanged
[2023-12-02] MEDS: SOLU-MEDROL PF 125 MG IV ×2 (17:35→23:37)
[2023-12-02] MEDS: NOVOLOG FLEXPEN 22 UNITS SC (17:35)
[2023-12-02] MEDS: NOVOLOG FLEXPEN-HIGH RESISTANCE 10 UNITS SC (17:36)
[2023-12-02 17:45] LABS: Glucose - Point of Care 287 mg/dl (70-99)
[2023-12-02] MEDS: ROXICODONE 10 MG PO (20:43)
[2023-12-02] MEDS: LIPITOR 40 MG PO (21:42)
[2023-12-02] MEDS: LANTUS 0.149999999999999994 UNITS SC (21:42)
[2023-12-02 21:53] LABS: Glucose - Point of Care 172 mg/dl (70-99)
--- NOTE | 2023-12-02 23:17 | PTCARENOTE ---
Patient's pulse ox 85-86% while sleeping. RT notified. HFNC increased to 80%. Currently 91-92% on 50L/80%. All other vitals stable.
[2023-12-03] VITALS (14 sets, daily range): BP systolic 79–134; BP diastolic 40–89; PULSE 60–76; O2SAT 92; BMI 28.2
[2023-12-03] MEDS: XANAX 0.5 MG PO ×2 (03:43→12:24)
[2023-12-03 04:04] LABS: Hematocrit 29.5 % (39.0-52.0); Hemoglobin 9.8 g/dL (13.0-18.0); Mean Corp Hgb Conc. 33.2 g/dL (33.0-37.0); Mean Corpuscular Hgb 29.2 pg (27.0-31.0); Mean Corpuscular Volume 87.8 fL (80.0-94.0); Mean Platelet Volume 12.2 fL (7.4-10.4); Platelet Count 159 10^3/uL (130-400); Red Blood Cell Count 3.36 10^6/uL (4.70-6.10); Red Cell Dist. Width 15.6 % (11.5-14.5); White Blood Cell Count 10.4 10^3/uL (4.8-10.8)
[2023-12-03 04:23] LABS: INR 2.82; PT 30.1 Sec (11.4-14.6)
[2023-12-03] MEDS: SOLU-MEDROL PF 125 MG IV ×4 (05:32→23:17)
[2023-12-03] MEDS: MAGNESIUM OXIDE 500 MG PO (07:59)
[2023-12-03] MEDS: PROTONIX 40 MG PO (07:59)
[2023-12-03] MEDS: ZETIA 10 MG PO (07:59)
[2023-12-03] MEDS: LOW STRENGTH ASPIRIN 81 MG PO (07:59)
[2023-12-03] MEDS: MIRALAX PO (07:59)
[2023-12-03] MEDS: LOPRESSOR 25 MG PO (07:59)
--- NOTE | 2023-12-03 08:00 | PTCARENOTE ---
PT received in bed drowsy but arousable, flat affect, AAOx3, SB with first degree AV block, BBBC, prolonged QT, + pulses trace edema, HiFlow 50L 80%, TRISTAN, shallow breaths, severely diminished T/O, occasional dry cough, abdomen round obese,
hypoactive BS, PT anuric, skin intact, right lower abdomen PD catheter, right midline, flushed, patent +blood return
--- NOTE | 2023-12-03 08:02 | W.PN.INTV ---
Today's Communication / Plan
Recommendations
Steroids raised to 125mg IV q6hr yesterday --> CT chest shows improvement today in degree of b/l opacities. I will reduce steroids over next 24-48 hrs
Serial CXR
Observe off antibiotics -last received cefepime on 11/21; prior to that received Zosyn on 11/18 and IV vanco on 11/17/2023
Encouraged to work with PT/OT and will need higher O2 with NRB during the sessions
While in bed he needs to use the incentive spirometer
Fluid balance negative via peritoneal dialysis
Low threshold to intubate
Guarded prognosis
GOC discussion is warranted to address code status
Assessment
-
Assessment:
Mr Blair Thakkar is a 63/M adm 11-12 with confusion and EV edema. Known h/o CKD on PD, recently not able to do PD himself due to confusion, did. At ER, confused, hypoxemic. Seen by Neurology, no acute findings on CT and MRI brain. Seen by
Renal, resumed PD soon after adm.� VTach episode on night 11-16, received IV Mag with resolution. VTach returned on early afternoon 11-17, started Mag IV infusion, MS continued deteriorating, became unresponsive, VTach deteriorated to TDP, then
VFib, shock at 360K x1, developed PEA, received 3 doses epinephrine, total CPR time about 3 min with ROSC, intubated by anesthesia with no reported difficulty
Impression:
Acute hypoxemic respiratory failure: Bilateral infiltrates with thick GGO seen on CTA chest from 11/23/2023 --> repeat CT chest today persistent albeit improved bilateral infiltrates with improved confluent GGO
Differential diagnosis includes pulmonary edema/inflammatory pneumonitis/less likely infectious --> based on his imaging and him being net negative I believe this is inflammatory pneumonitis (idioapathic at this point)
Hx of bilateral ground-glass opacities on former CT imaging from April 2021
Cardiac arrest �11-17-23
VTach, TDP, VFib, PEA
Low normal serum Mg on 11-16 and given IV Mag on 11-16 and also 11-17 (Mg was running at time of arrest)
Transaminitis - could be reaction from the high-dose steroids
Conditions BEHAVIORAL HEALTH ASSOCIATE:
CKD on PD
CAD s/p CABG
PVD s/p bilateral EV stenting
Emergent stenting RLE Jun 2021 ()
DM
HTN
HLD
Depression
Obesity

Plan:
11/21/2023: Transferred back to the ICU with increased work of breathing necessitating�noninvasive mechanical ventilation.� Acute onset.
Chest x-ray at that time with ? mild pulmonary edema bilaterally.
CT chest 11/23/2023: Extensive bilateral groundglass opacities with subsegmental bibasilar atelectasis.� No pulmonary embolism.
CT Chest 12/03/2023: Diffuse interstitial and groundglass opacities throughout both lungs with some improved aeration compared to the chest CT from 11/23/2023.
-
Acute Hypoxemic Respiratory Failure: worsening bilateral infiltrates on CXR from 11/28/2023 - suspect an inflammatory pneumonitis; cannot rule out aspiration with subsequent acute lung injury.� Patient has never been on amiodarone. Bilateral
interstitial/groundglass opacities improved based on today's CT chest (12/03/2023)
Hypoventilation is also contributing to his hypoxia as he is barely pulling 1L on the incentive spirometer and gets very SOB and hypoxic with movement
No antibiotics were given-no evidence for infection.
Right heart catheterization 11/24/2023: Not consistent with volume overload.
Responding to steroids -->�was on solumedrol 40mg IV q6hr (after being on prednisone 40mg daily x 2 days prior on 11/27 + 11/28, and before that was on decadron 4mg IV q8hr from 11/24 - 11/26)- considering he remains hypoxic with inability to reduce
FiO2 lower than 60%, I raised steroids to 125mg IV q6hr on 12/02; adjust as pt improves;� trend CRP, BNP and procal --> CRP continues to downtrend, BNP remains >27k
Encourage incentive spirometer and up OOB as tolerated
Of note, he has had bilateral groundglass opacities on his chest on former CT imaging as far back as April 2021.� He denies any personal history of connective tissue disease.� I will check a CTD panel including: RF, CCP-Ab, Scl-70, centromere, ADELAIDA,
CRP, MARY, Jeanne-1 and SS-A + SS-B.
-
continue physical therapy/Occupational Therapy - may need NRB over high flow in order to work with PT/OT
Speech evaluation noted: No overt aspiration.� Continue with aspiration precautions.
-
Monitor BG with goal BG 140-180mg/dL;�glycemic protocol with insulin drip being restarted today due to persistent hyperglycemia. Diabetic NETWORK SERVICES PROJECT MANAGER on board
Continue to trend LFTs
-
Based on today's CT Chest, there is persistence but improvement in his bilateral opacities, now with persistent b/l opacities but his confluent GGO has reduced. I was considering bronchoscopy with BAL, however given his high FiO2 requirements and
physical deconditioning, the practicality of obtaining a BAL may not be possible without high risk of him becoming intubated.

VTach evening 11-16-no further episodes.
Low normal Mg, replaced IV at time of event
No gross e-lyte abnormalities at time of VTach, TDP, VFib/PEA
Status post cardiac arrest 11-17
Required intubation-CPR, 3 epi doses, shock x1 at 360. CPR for about 3 min till ROSC
Extubated 11/18/2023.
Continue to monitor electrolytes with goal K>4, Mg>2
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
Cardiology continues to follow.
-
Nephrology continues to follow.
Continue to maintain negative fluid balance via peritoneal dialysis.
-
Antibiotics discontinued 11/19/2023.� No evidence for infection.
Restarted on cefepime 11/21/2023: � No evidence for infection.� Discontinued antibiotics.
Procal has downtrended compared to prior value, indicating we have adequate source control
All cultures were negative.
-
Hyperglycemia: Steroid-induced
Goal BG 140-180 mg/dL
ISS AC
Glycemic protocol with insulin drip being restarted due to hyperglycemia
-
On chronic coumadin for h/o PVD s/p stents - goal INR: 2-3
Daily INR and adjust Coumadin as needed
Monitor for bleeding
-
He was downgraded to IMU on 11/27/2023, however he is now upgraded back to ICU level care given his high FiO2 requirements.
Critical care statement: A total of 40 minutes of critical care time was provided for this patient today. This includes management of unstable vital signs, evaluation of the patient at bedside, reviewing the patient's pertinent medical records
including radiographs, microbiology, laboratory evaluations, and discussion with primary team, consultants, pharmacy, nutrition, physical therapy, case management, charge nurse, critical care nursing, and respiratory therapy.

Diagnostic tests:
CT Chest w/o contrast 12-03-2023:
1. Diffuse interstitial and groundglass opacities throughout both lungs with some improved aeration compared to the chest CT from 11/23/2023.
2. Moderate upper abdominal ascites.
CTA Chest 11-23-2023:
1). There is no pulmonary embolism
2).There is diffuse groundglass airspace disease throughout both lungs, most prominent at the lung bases without associated pleural effusions or overfilling of the pulmonary vasculature suggesting that this diffuse interstitial pneumonia such as may
be seen with COVID 19.
3). Moderate-large volume abdominal ascites
4). Postoperative changes with wire sternal sutures and mediastinal clips
CXR 11-30-2023:� Compared to CXR from 11/28/2023; Moderate diffuse interstitial pneumonia, not significantly changed when compared with prior study
CXR 11-17-23 pm: interim intubation and GT. pulm vasc and parenchymal congestion.
CXR -05 and - AM, portable, improved pulm vasc and parenchymal congestion, sternotomy
TTE 11-17-23 (post cardiac arrest)
CONCLUSIONS
�Limited study
�Normal left ventricular chamber size. Mild concentric left ventricular
�hypertrophy. Normal left ventricular systolic function. Left ventricular
�ejection fraction is 50% by Grimadlo' s method.� Diastology not assessed.
�Since echocardiogram November 15, 2023 which was reviewed, there is no
�significant change.
TTE 11-15-23
CONCLUSIONS
�Normal left ventricular chamber size. Normal left ventricular systolic
�function. Normal regional wall motion. Mild concentric left ventricular
�hypertrophy. Left ventricular ejection fraction is 55-60% by visual estimate.
�Diastolic function indeterminate due to atrial fibrillation.
�Mildly thickened mitral valve leaflets. Mitral annular calcification. Mitral
�valve opens normally. Trace mitral regurgitation.
Subjective Dataa
Subjective Data
Date of Service:
Date of Service: December 03, 2023
Chief Complaint: Nurse Transition Follow Up (Acute hypoxemic respiratory failure requiring noninvasive mechanical ventilation.)
Subjective:
Pt seen this AM - FiO2 demands increased overnight - no inciting event that caused it. FiO2 currently at 80%. He says he feels better today. Slight cough. CXR is better today with improved aeration. Pulling <1000 on IS. BP 103/89, HR 53 and
SpO2 93%. Due to worsening oxygen requirements he was upgraded to ICU level care today.
Review of Systems
General: Other (12 point ROS performed and is negative unless mentioned above. 12)
Objective Data
Data Reviewed
Vital Signs / I&O / Oxygen:
Vital Signs
Temp Pulse Resp BP Pulse Ox
97.4 F 54 12 124/43 94
12/03/23 08:00 12/03/23 08:00 12/03/23 08:00 12/03/23 08:00 12/03/23 09:40
Intake and Output
12/02/23 12/03/23 12/04/23
06:59 06:59 06:59
Intake Total 800 / 800
Output Total 600 / 600 1400 / 1400
Balance 200 / 200 -1400 / -1400
SaO2 [NIV (Non Invasive 95
Ventilation)]
SaO2 [CPAP/PSV] 95
SaO2 [A/C] 96
SaO2 94
Nasal Cannula flow liters per 50
minute
Physical Exam
General: Respiratory Distress (with activity), Comfortable and Chills (negative)
HEENT: Normocephalic, Anicteric and Moist Mucous Membranes
Cardiovascular: S1-S2, Murmur (n), Peripheral Edema (n) and Other (normal rate)
Respiratory: Wheeze (negative), Crackles, Rhonchi (negative), Non-Labored Respirations and Stridor (n)
GI: Soft, Non Distended and Non Tender
Neurology: Awake, Alert, Oriented and No Motor Deficits
Skin: Warm and Dry
Labs/Micro/Reports
Lab Data
12/03/23 03:53
12/01/23 06:11
Laboratory Results
12/03/23
03:53
PT 30.1 H
INR 2.82
--- NOTE | 2023-12-03 08:05 | W.PN.HOSP.TC ---
Today's Communication/Plan
-
see bold
Assessment / Plan
Assessment / Plan
Gen: NAD, awake and alert, well-developed, well-nourished
Eyes: remains EOMI, PERRLA, no scleral icterus.
Neck: supple.
CV: remains RRR, +S1/S2, no m/r/g.
Resp: CTAB anteriorly
Abd: +BS, soft, NT, ND
Skin: No rashes.
Neuro: continues to remain CN 2-12 intact, non-focal.
Psych: Normal mood and affect.
CT chest 11/23/23:
1). There is no pulmonary embolism
2).There is diffuse groundglass airspace disease throughout both lungs, most prominent at the lung bases without associated pleural effusions or overfilling of the pulmonary vasculature suggesting that this diffuse interstitial pneumonia such as may
be seen with COVID 19.
3). Moderate-large volume abdominal ascites
4). Postoperative changes with wire sternal sutures and mediastinal clips
CXR 11/26/23: Hazy patchy bibasilar opacification increased in comparison to most recent prior chest radiograph, possibly representing pneumonitis.
CXR 11/28/23: Worsening diffuse interstitial pneumonia.
Acute hypoxic respiratory failure:
-After his prolonged hospital course and based on the evidence we have at hand, it appears etiology is acute lung injury due to acute interstitial pneumonia/inflammatory pneumonitis per pulm
-Was on IV dexamethasone, then transitioned to prednisone, now on Solumedrol 125mg IV Q6H
-was on insulin drip for steroid-induced hyperglycemia, now transitioned to SC insulin. cont Lantus 50U, cont premeal aspart 22U, high resistance SSI. Diabetes SENIOR NETWORK ADMINISTRATOR following. May need insulin gtt.
-was weaned down to mid flow 8L O2 on 11/27/23 from High Flow Oxygen prior. Now on 50L/91% highflow.
-No need for antibiotics
-CTD panel pending (RF, CCP-Ab, Scl-70, centromere, ADELAIDA, CRP, MARY, Jeanne-1 and SS-A + SS-B)
ESRD on PD:
-Continue PD per nephrology. Nephrology following.
-Volume effectively coming off but would not be feasible upon discharge for either home (prob can not do it by himself) or SNF (would not be accepted).
-Would likely require conversion to hemodialysis but will defer to nephrology for timing
Cardiopulmonary arrest/CAD:
-VT/V Fib arrest on 11/17/23 with ROSC
-V. tach-->TDP-->V Fib-->PEA. CPR abt 3 min and Epinephrine x3. V Fib s/p shock 360J x1--> ROSC achieved.
-On aspirin, beta-blockers increased metoprolol 25 mg twice a day, on statin atorvastatin 40 mg p.o. nightly.
-Latest EKG if QTc is 516ms, monitor
-Right heart cath showed PCWP of 13 on 11/24/23
-Transthoracic echocardiogram--> EF 50%, mild concentric left ventricular hypertrophy, no significant changes from prior echo.
-Cardiology following
-Known history of CAD with CABG back in 1995.
-Plan for left heart cardiac cath once respiratory status stable (possible AICD)
Peripheral vascular disease:
-cont ASA/statin.
-Known PVD, femoropopliteal bypass 2015, right CEA 2018, left CEA 2018, right Stent [facility]FA METEOROLOGY PROFESSOR 2020
-was on Heparin drip, now transitioned to warfarin on 11/25/23 (no bridge was needed). INR now therapeutic. Coumadin 3mg tonight.
Acute metabolic encephalopathy:
-was multifactorial in nature with uremia and hypoxemia but now back to his baseline.
-Head CT with impression of no acute intracranial abnormality but some chronic changes noted.
-MRI brain negative for acute stroke or pathology.
Other problems:
Essential hypertension: cont BB
Atrial tachycardia: Continue BB
Chronic diastolic CHF: cont BB and maintenance of euvolemia via hemodialysis
Hypokalemia, resolved
Hypomagnesemia: cont PO Mg
Hyperlipidemia: cont statin/Zetia
Depression: Now off Zoloft to avoid prolonged QTc.
FULL/coumadin
Transfer to ICU with increasing O2 requirements.
Anticipated Discharge: > 48 hours
Subjective/Interval History
-
Date of Service: December 03, 2023
Objective Data
-
Labs:
Laboratory Results
12/03/23
03:53
WBC 10.4
Hgb 9.8 L
Hct 29.5 L
Plt Count 159
PT 30.1 H
INR 2.82
Vital Signs:
Vital Signs
Temp Pulse Resp BP Pulse Ox
97.9 F 56 18 112/71 98
12/03/23 03:42 12/03/23 07:59 12/03/23 06:00 12/03/23 07:59 12/03/23 06:00
I&O
12/02/23 12/03/23 12/04/23
06:59 06:59 06:59
Intake Total 800 / 800
Output Total 600 / 600 1400 / 1400
Balance 200 / 200 -1400 / -1400
--- NOTE | 2023-12-03 08:43 | PN.DE.MGMTRT ---
Insulin Management
- -
11/18/2023 Diabetes Management Consult
Admitted 11/12 for R foot wound, confusion, SOB, swelling. PMH renal failure with peritoneal dialysis, HTN, PVD type 2 diabetes. Prior to admission chart reflects he was taking 60 units Basaglar daily with NovoLog 28 units BID. A1C 8.6%. Patient
had cardiac arrest 11/16 now intubated on mechanical ventilation and insulin infusion. Prior to this patient was receiving Lantus in AM with AC NovoLog at reduced doses.
Will continue glycemic protocol at this time. If patient is weaned off of ventilator will assess for readiness to transition to subcutaneous insulin.
11/19/2023: Diabetes Management F/U:
Pt extubated last evening. Doing well, sitting up in bed, offers no complaints.
Glucose trended up to 197, remains on glycemic protocol requiring 0.8-7 units of insulin/ hr while NPO.
Pt was taking 60 units Basaglar daily with NovoLog 28 units BID RESEARCH PHARMACIST.
Will transition off drip. Give Lantus 30 units NOW, turn drip off 1 hr after.
Start AC NovoLog 8 units and moderate corrective insulin with meals. Start 1800 ADA diet. Accucheks AC/HS
Will follow for further needed insulin adjustments. Plan of care d/w pt and Nurse.
11/22/2023: Diabetes Management F/U:
Pt transferred back to ICU for increased O2 requirements.
Currently NPO for R/LHC today. Premeal glucose trended up to 345 requiring 3-7 units of corrective insulin.
Will make no changes to regimen at this time, reassess after procedure and make necessary adjustments to insulin dose
11/23/2023 Diabetes Management Follow Up
Patient glucose controlled on current regimen, trended down to 79 @ HS. Will slightly decrease AM Lantus dose to 27 units to start Wednesday, 11/24.
Patient is NPO for procedure, will order one time dose of Lantus 15 units now.
11/24/2023 Diabetes Management Follow Up
Cardiac cath cancelled yesterday due to patient hypoxia. Dexamethasone 4 mg BID started last evening, glucose up to 460. Insulin administered. Fasting glucose 393. Glycemic protocol has been started. Will continue today and reassess in AM/
11/25/2023 Diabetes Management Follow up
Patient remains on steroids, glucose controlled on glycemic protocol requiring .8 to 10 units NovoLog per hour. He is eating meals and receiving supplemental insulin. Will continue glycemic protocol, assess in AM for readiness to transition to
subq regimen. I spoke with patient nurse.
11/26/2023: Diabetes Management F/U:
Patient remains on steroids- Dexa 4mg Q8hrs, continues on glycemic protocol, glucose range 89-219 requiring .5 to 12 units NovoLog per hour.
He is eating meals and receiving supplemental insulin.
Plan is to start steroid taper today, will continue glycemic protocol for now and reassess later today for readiness to transition to SQ insulin.
11/29/2023: Diabetes Management F/U:
Steroids were tapered down to Pred 40mg daily--> transitioned off CC glycemic protocol to SQ insulin over the weekend
Noted for worsening oxygenation--> resumed high dose IV steroids--> Hyperglycemia.
Pt resting in bed, offers no complaints. Glucose has remained elevated, FBG 301 this AM, premeal range 199 to 345, Dr. Lopez has increased his AC NovoLog dose to 8 units. Will increase Lantus to 35 units, 1st dose will be given tomorrow AM. Cont
current AC dose and corrective insulin with meals
Will closely follow and adjust insulin if necessary.
11/30/2023 Diabetes Management Follow up
Patient continues on steroids. Glucose remains elevated > 200. Lantus to increase to 35 units this AM. NovoLog increased yesterday to 12 units, continued to require corrective insulin. Will increase AC NovoLog to 15 units. Will follow
12/01/2023 Diabetes Management Follow up
Patient continues on steroids. Insulin increased yesterday, glucose remains > 200. Lunch standing dose of NovoLog not given, glucose 364. Additional NPH given. Patients home Basaglar reported at 60 units. Will increase AM Lantus to 40 units,
will increase AC NovoLog to 18 units.
12/02/2023 Diabetes Management Follow up
Patient steroids decreased to 40 mg. Insulin increased again yesterday. Glucose remains in 300's. Will again increase Lantus to 50 units in AM with NovoLog 22 units AC with corrective insulin.
12/03/2023: Diabetes Management F/U:
Steroids were tapered down to Pred 40mg daily--> Pt was noted for worsening oxygenation--> resumed high dose IV steroids--> Solumedrol 125mg Q6hrs
Now with Hyperglycemia. Insulin was adjusted yesterday with minor improvement in glucose levels. FBG pending, was 258 before breakfast.
Will start CC Glycemic protocol for optimal glucose control in setting of escalated IV Steroids. Discussed with pt, Nurse and ICU rounding team.
Diabetes History
- -
Type of Diabetes: 2 requiring insulin
Pre-Admission Diabetes Regimen
Lab Results
Hemoglobin A1c 8.6 % (4.0-5.6) H 11/13/23 06:09
Insulin Pump Settings
IP Diabetes Regimen
12/02/23 12/02/23 12/02/23
11:58 14:55 17:34
POC Glucose 369 H 306 H 287 H
12/02/23
21:41
POC Glucose 172 H
Patient Education
[2023-12-03] MEDS: NOVOLOG FLEXPEN 22 UNITS SC (09:30)
[2023-12-03] MEDS: LANTUS 0.5 UNITS SC (09:31)
[2023-12-03] MEDS: NOVOLOG FLEXPEN-HIGH RESISTANCE 7 UNITS SC (09:31)
[2023-12-03 09:41] LABS: Glucose - Point of Care 258 mg/dl (70-99)
--- NOTE | 2023-12-03 10:47 | W.PN.NEPH.PH ---
Today's Communication / Plan
-
cont PD
Assessment/Plan
-
Assessment
-ESRD on PD
-volume overload
-CHF
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
-PAD
-HTN
-edema
-CAD/CABG
-DM2
-Hyponatremia
-In-hospital cardiac arrest 11/17/23
-VT arrest
s/p shock x1 and Epi x1 11/17/23
Plan
remains on high flow, CXR mild improvement s/p increased steroids on 12/02
likely volume is not contributing to his resp symp
cotn PD 2.5 and 4.2 alternate, weights are stable.
he had minimal UF with 2.5 only bags
-there is a possibility that he will need to be converted to HD here depending on volume status and for home discharge planning. discussed with patient and he is amenable to the change if needed. awaiting until cardiac procedure is performed prior
to transition
Hyponatremia-maintain FR, part of it from hyperglycemia
monitor h/h
BP labile on low dose BB -monitor for hypotension
d/w nursing
-
-
Date of Service: December 03, 2023
CC / HPI / ROS
-
Chief Complaint:
ESRD
History of Present Illness:
PD in progress-draining
s/p code 9 with VT 11/17/23
on high flow O2 and remains on IV Decadron
bp labile
hb 9.8 no change,
Review of Systems:
no fever
no CP
Weights stable
per staff pt tired, increase O2 requirment
Labs
-
Labs:
WBC 10.4 10^3/uL (4.8-10.8) 12/03/23 03:53
RBC 3.36 10^6/uL (4.70-6.10) L 12/03/23 03:53
Hgb 9.8 g/dL (13.0-18.0) L 12/03/23 03:53
Hct 29.5 % (39.0-52.0) L 12/03/23 03:53
Plt Count 159 10^3/uL (130-400) 12/03/23 03:53
eGFR 8.57 12/01/23 06:11
Dqh-B-Orblvgeleiz Pept > 85445 pg/ml 11/29/23 04:30
Physical Exam
-
Vital Signs:
Vital Signs
Temp Pulse Resp BP Pulse Ox
97.4 F 54 12 124/43 94
12/03/23 08:00 12/03/23 08:00 12/03/23 08:00 12/03/23 08:00 12/03/23 09:40
Cardiovascular:: Regular rate and rhythm
Lung Excursion:: Abnormal (decreased)
Abdomen:: Nontender and Soft
Extremity Edema:: None: Bilateral:
Sweeney Catheter: No
[2023-12-03] MEDS: MARINOL 2.5 MG PO ×2 (10:51→17:53)
--- NOTE | 2023-12-03 10:54 | W.PN.UPDATE ---
Update Note
Progress Note Update
PD notes:
pt seen during PD process -drainaing currently
net UF ~1lit
if po intake is poor will change to all 2.5
cont 2.5 and 4.2 alternate
PD fluid is clear
check Fe panel and likely CARLIE and Fe if needed
[2023-12-03 12:11] LABS: ALT (SGPT) 413 U/L (0-50); AST (SGOT) 206 U/L (17-59); Albumin 2.6 g/dl (3.5-5.0); Alkaline Phosphatase 201 U/L (38-126); Blood Urea Nitrogen 75 mg/dl (9-20); Calcium 7.9 mg/dl (8.4-10.2); Carbon Dioxide 30 mmol/L (22-30); Chloride 92 mmol/L (98-107); Estimated Creatinine Clearance 11 ml/min; Glucose 215 mg/dl (70-99); Potassium 4.1 mmol/L (3.5-5.1); Sodium 127 mmol/L (135-145); Total Bilirubin 0.5 mg/dl (0.2-1.3); Total Protein 5.3 g/dl (6.3-8.2); eGFR 8.57
[2023-12-03] MEDS: NOVOLIN R 3 UNITS IV (13:08)
[2023-12-03] MEDS: NOVOLIN R INSULIN INFUSION 100 IV (13:11)
[2023-12-03 13:17] LABS: Glucose - Point of Care 190 mg/dl (70-99)
--- NOTE | 2023-12-03 13:41 | PTCARENOTE ---
PT transported to CT scan and back into room, Initiated glycemic drip, 3 unit bolus for BS 190, PT to be maintained on hourly accucheck
[2023-12-03] MEDS: NOVOLOG FLEXPEN SC (13:49)
[2023-12-03 14:41] LABS: Glucose - Point of Care 143 mg/dl (70-99)
[2023-12-03 15:44] LABS: Glucose - Point of Care 76 mg/dl (70-99)
--- NOTE | 2023-12-03 16:26 | CM ---
Patient and seen at bedside. Patient doing better per nursing and patient again was asking about discharge planning and updates for Kamille Chaudhry. has been updating the unit every other day. CM will continue to follow for
discharge planning needs.
Plan; home with vn/pd.
[2023-12-03 16:43] LABS: Glucose - Point of Care 133 mg/dl (70-99)
[2023-12-03] MEDS: NOVOLOG FLEXPEN 2 UNITS SC (17:41)
[2023-12-03 17:49] LABS: Glucose - Point of Care 142 mg/dl (70-99)
[2023-12-03] MEDS: COUMADIN 3 MG PO (17:53)
[2023-12-03] MEDS: LOPRESSOR 12.5 MG PO (19:52)
[2023-12-03 20:04] LABS: Glucose - Point of Care 128 mg/dl (70-99)
--- NOTE | 2023-12-03 20:46 | PTCARENOTE ---
received patient from previous shift. alert and orientated x3. high flow 50L 70%. lungs diminished. NS on the monitor. PD as ordered. pt having dinner now. on glycemic protocol, accu checks every 2 hours, insulin gtt infusing.
[2023-12-03] MEDS: LIPITOR 40 MG PO (21:13)
[2023-12-03] MEDS: ROXICODONE 10 MG PO (21:13)
[2023-12-03 22:10] LABS: Glucose - Point of Care 139 mg/dl (70-99)
[2023-12-04] VITALS (20 sets, daily range): BP systolic 87–135; BP diastolic 40–72; BMI 28.5
[2023-12-04 00:11] LABS: Glucose - Point of Care 106 mg/dl (70-99)
--- NOTE | 2023-12-04 01:58 | PTCARENOTE ---
pt reassessed, no changes. PD completed. pt resting.
[2023-12-04 02:12] LABS: Glucose - Point of Care 106 mg/dl (70-99)
[2023-12-04 04:58] LABS: Blood Urea Nitrogen 79 mg/dl (9-20); Calcium 7.6 mg/dl (8.4-10.2); Carbon Dioxide 30 mmol/L (22-30); Chloride 90 mmol/L (98-107); Estimated Creatinine Clearance 11 ml/min; Glucose 144 mg/dl (70-99); Iron 97 ug/dl (49-181); Magnesium 1.9 mg/dl (1.6-2.3); Sodium 127 mmol/L (135-145); eGFR 8.42
[2023-12-04 05:06] LABS: Percent Saturation 39 % (20-50); Total Iron Binding Capacity 245 ug/dl (261-462)
[2023-12-04] MEDS: SOLU-MEDROL PF 125 MG IV ×2 (05:31→12:17)
[2023-12-04 06:09] LABS: Glucose - Point of Care 146 mg/dl (70-99)
[2023-12-04] MEDS: NOVOLOG FLEXPEN SC (06:55)
--- NOTE | 2023-12-04 07:54 | W.PN.HOSP.TC ---
Today's Communication/Plan
-
see bold
Assessment / Plan
Assessment / Plan
Gen: NAD, awake and alert, well-developed, well-nourished
Eyes: remains EOMI, PERRLA, no scleral icterus.
Neck: supple.
CV: remains RRR, +S1/S2, no m/r/g.
Resp: CTAB anteriorly
Abd: +BS, soft, NT, ND
Skin: No rashes.
Neuro: continues to remain CN 2-12 intact, non-focal.
Psych: Normal mood and affect.
CT chest 11/23/23:
1). There is no pulmonary embolism
2).There is diffuse groundglass airspace disease throughout both lungs, most prominent at the lung bases without associated pleural effusions or overfilling of the pulmonary vasculature suggesting that this diffuse interstitial pneumonia such as may
be seen with COVID 19.
3). Moderate-large volume abdominal ascites
4). Postoperative changes with wire sternal sutures and mediastinal clips
CXR 11/26/23: Hazy patchy bibasilar opacification increased in comparison to most recent prior chest radiograph, possibly representing pneumonitis.
CXR 11/28/23: Worsening diffuse interstitial pneumonia.
CT chest 12/03/23:
1. Diffuse interstitial and groundglass opacities throughout both lungs with some improved aeration compared to the chest CT from 11/23/2023.
2. Moderate upper abdominal ascites.
Acute hypoxic respiratory failure:
-After his prolonged hospital course and based on the evidence we have at hand, it appears etiology is acute lung injury due to acute interstitial pneumonia/inflammatory pneumonitis per pulm
-Was on IV dexamethasone, then transitioned to prednisone, now on Solumedrol 125mg IV Q6H
-was on insulin drip for steroid-induced hyperglycemia, then transitioned to SC insulin, now back on insulin gtt.
-was weaned down to mid flow 8L O2 on 11/27/23 from High Flow Oxygen prior. Now on 50L/65% highflow.
-No need for antibiotics
-RF NEG, ESR 80, CRP 10.8
-rest of CTD panel pending (CCP-Ab, Scl-70, centromere, ADELAIDA, CRP, Jeanne-1 and SS-A + SS-B)
ESRD on PD:
-Continue PD per nephrology. Nephrology following.
-Volume effectively coming off but would not be feasible upon discharge for either home (prob can not do it by himself) or SNF (would not be accepted).
-Would likely require conversion to hemodialysis but will defer to nephrology for timing
Cardiopulmonary arrest/CAD:
-VT/V Fib arrest on 11/17/23 with ROSC
-V. tach-->TDP-->V Fib-->PEA. CPR abt 3 min and Epinephrine x3. V Fib s/p shock 360J x1--> ROSC achieved.
-On aspirin, beta-blockers increased metoprolol 25 mg twice a day, on statin atorvastatin 40 mg p.o. nightly.
-Latest EKG if QTc is 516ms, monitor
-Right heart cath showed PCWP of 13 on 11/24/23
-Transthoracic echocardiogram--> EF 50%, mild concentric left ventricular hypertrophy, no significant changes from prior echo.
-Cardiology following
-Known history of CAD with CABG back in 1995.
-Plan for left heart cardiac cath once respiratory status stable (possible AICD)
Peripheral vascular disease:
-cont ASA/statin.
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
-was on Heparin drip, now transitioned to warfarin on 11/25/23 (no bridge was needed). INR now therapeutic. Coumadin 3mg tonight.
Acute metabolic encephalopathy:
-was multifactorial in nature with uremia and hypoxemia but now back to his baseline.
-Head CT with impression of no acute intracranial abnormality but some chronic changes noted.
-MRI brain negative for acute stroke or pathology.
Other problems:
Essential hypertension: cont BB
Atrial tachycardia: Continue BB
Chronic diastolic CHF: cont BB and maintenance of euvolemia via hemodialysis
Hypokalemia, resolved
Hypomagnesemia: cont PO Mg
Hyperlipidemia: cont statin/Zetia
Depression: Now off Zoloft to avoid prolonged QTc.
FULL/coumadin
Anticipated Discharge: > 48 hours
Subjective/Interval History
-
Date of Service: December 04, 2023
No new complaints.
Objective Data
-
Labs:
Laboratory Results
12/04/23
04:09
Sodium 127 L
Potassium 4.0
Chloride 90 L
Carbon Dioxide 30
BUN 79 H
Creatinine 6.8 H*
Glucose 144 H
Calcium 7.6 L
Vital Signs:
Vital Signs
Temp Pulse Resp BP Pulse Ox
97.7 F 54 12 135/52 93
12/04/23 07:47 12/04/23 07:00 12/04/23 07:00 12/04/23 06:00 12/04/23 07:42
I&O
12/03/23 12/04/23 12/05/23
06:59 06:59 06:59
Intake Total 200 / 200
Output Total 1400 / 1400 900 / 900 100 / 100
Balance -1400 / -1400 -700 / -700 -100 / -100
[2023-12-04] MEDS: MIRALAX PO (07:57)
--- NOTE | 2023-12-04 08:04 | W.PN.INTV ---
Today's Communication / Plan
Recommendations
Steroids raised to 125mg IV q6hr on 12/02 --> CT chest yesterday shows improvement in degree of b/l opacities. I will reduce steroids to 80mg IV q6hr
Serial CXR
Observe off antibiotics -last received cefepime on 11/21; prior to that received Zosyn on 11/18 and IV vanco on 11/17/2023
Encouraged to work with PT/OT and will need higher O2 with NRB during the sessions
While in bed he needs to use the incentive spirometer
Fluid balance negative via peritoneal dialysis
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
Low threshold to intubate
Guarded prognosis
GOC discussion is warranted to address code status
Assessment
-
Assessment:
Mr Blair Thakkar is a 63/M adm 11-12 with confusion and EV edema. Known h/o CKD on PD, recently not able to do PD himself due to confusion, did. At ER, confused, hypoxemic. Seen by Neurology, no acute findings on CT and MRI brain. Seen by
Renal, resumed PD soon after adm.� VTach episode on night -, received IV Mag with resolution. VTach returned on early afternoon 11-17, started Mag IV infusion, MS continued deteriorating, became unresponsive, VTach deteriorated to TDP, then
VFib, shock at 360K x1, developed PEA, received 3 doses epinephrine, total CPR time about 3 min with ROSC, intubated by anesthesia with no reported difficulty
Impression:
Acute hypoxemic respiratory failure: Bilateral infiltrates with thick GGO seen on CTA chest from 11/23/2023 --> repeat CT chest on 12/03 shows persistent albeit improved bilateral infiltrates with improved confluent GGO
Differential diagnosis includes pulmonary edema/inflammatory pneumonitis/less likely infectious --> based on his imaging and him being net negative I believe this is inflammatory pneumonitis (idioapathic at this point)
Hx of bilateral ground-glass opacities on former CT imaging from April 2021
Cardiac arrest �11-17-23
VTach, TDP, VFib, PEA
Low normal serum Mg on 11-16 and given IV Mag on 11-16 and also 11-17 (Mg was running at time of arrest)
Transaminitis - could be reaction from the high-dose steroids
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
CKD on PD
CAD s/p CABG
PVD s/p bilateral EV stenting
Emergent stenting RLE Jun 2021 ()
DM
HTN
HLD
Depression
Obesity

Plan:
11/21/2023: Transferred back to the ICU with increased work of breathing necessitating�noninvasive mechanical ventilation.� Acute onset.
Chest x-ray at that time with ? mild pulmonary edema bilaterally.
CT chest 11/23/2023: Extensive bilateral groundglass opacities with subsegmental bibasilar atelectasis.� No pulmonary embolism.
CT Chest 12/03/2023: Diffuse interstitial and groundglass opacities throughout both lungs with some improved aeration compared to the chest CT from 11/23/2023.
-
Acute Hypoxemic Respiratory Failure: worsening bilateral infiltrates on CXR from 11/28/2023 - suspect an inflammatory pneumonitis; cannot rule out aspiration with subsequent acute lung injury.� Patient has never been on amiodarone. Bilateral
interstitial/groundglass opacities improved based on today's CT chest (12/03/2023)
Hypoventilation is also contributing to his hypoxia as he is barely pulling 1L on the incentive spirometer and gets very SOB and hypoxic with movement
No antibiotics were given-no evidence for infection.
Right heart catheterization 11/24/2023: Not consistent with volume overload.
Responding to steroids -->�was on solumedrol 40mg IV q6hr (after being on prednisone 40mg daily x 2 days prior on 11/27 + 11/28, and before that was on decadron 4mg IV q8hr from 11/24 - 11/26)- considering he remains hypoxic with inability to reduce
FiO2 lower than 60%, I raised steroids to 125mg IV q6hr on 12/02; adjust as pt improves --> will reduce to 80mg IV q6hr;� trend CRP, BNP and procal --> CRP continues to downtrend, BNP remains >27k
Encourage incentive spirometer and up OOB as tolerated
Of note, he has had bilateral groundglass opacities on his chest on former CT imaging as far back as April 2021.� He denies any personal history of connective tissue disease.� I will check a CTD panel including: CCP-Ab, Scl-70, centromere, ADELAIDA, CRP,
MARY, Jeanne-1 and SS-A + SS-B.; RF negative thus far.
-
continue physical therapy/Occupational Therapy - may need NRB over high flow in order to work with PT/OT
Speech evaluation noted: No overt aspiration.� Continue with aspiration precautions.
-
Monitor BG with goal BG 140-180mg/dL;�glycemic protocol with insulin drip being restarted today due to persistent hyperglycemia. Diabetic MOBILE MARKETING SPECIALIST on board
Continue to trend LFTs
-
Based on today's CT Chest, there is persistence but improvement in his bilateral opacities, now with persistent b/l opacities but his confluent GGO has reduced. I was considering bronchoscopy with BAL, however given his high FiO2 requirements and
physical deconditioning, the practicality of obtaining a BAL may not be possible without high risk of him becoming intubated.

VTach evening 11-16-no further episodes.
Low normal Mg, replaced IV at time of event
No gross e-lyte abnormalities at time of VTach, TDP, VFib/PEA
Status post cardiac arrest 11-17
Required intubation-CPR, 3 epi doses, shock x1 at 360. CPR for about 3 min till ROSC
Extubated 11/18/2023.
Continue to monitor electrolytes with goal K>4, Mg>2
Continue digital strategy manager.
Cardiology continues to follow.
-
Nephrology continues to follow.
Continue to maintain negative fluid balance via peritoneal dialysis.
-
Antibiotics discontinued 11/19/2023.� No evidence for infection.
Restarted on cefepime 11/21/2023: � No evidence for infection.� Discontinued antibiotics.
Procal has downtrended compared to prior value, indicating we have adequate source control
All cultures were negative.
-
Hyperglycemia: Steroid-induced
Goal BG 140-180 mg/dL
ISS AC
Glycemic protocol with insulin drip restarted on 12/03 due to hyperglycemia
-
On chronic coumadin for h/o PVD s/p stents - goal INR: 2-3
Daily INR and adjust Coumadin as needed
Monitor for bleeding
-
He was downgraded to IMU on 11/27/2023, however he is now upgraded back to ICU level care given his high FiO2 requirements as well as hyperglycemia requiring insulin gtt.
Critical care statement: A total of 44 minutes of critical care time was provided for this patient today. This includes management of unstable vital signs, evaluation of the patient at bedside, reviewing the patient's pertinent medical records
including radiographs, microbiology, laboratory evaluations, and discussion with primary team, consultants, pharmacy, nutrition, physical therapy, case management, charge nurse, critical care nursing, and respiratory therapy.

Diagnostic tests:
CT Chest w/o contrast 12-03-2023:
1. Diffuse interstitial and groundglass opacities throughout both lungs with some improved aeration compared to the chest CT from 11/23/2023.
2. Moderate upper abdominal ascites.
CTA Chest 11-23-2023:
1). There is no pulmonary embolism
2).There is diffuse groundglass airspace disease throughout both lungs, most prominent at the lung bases without associated pleural effusions or overfilling of the pulmonary vasculature suggesting that this diffuse interstitial pneumonia such as may
be seen with COVID 19.
3). Moderate-large volume abdominal ascites
4). Postoperative changes with wire sternal sutures and mediastinal clips
CXR 11-30-2023:� Compared to CXR from 11/28/2023; Moderate diffuse interstitial pneumonia, not significantly changed when compared with prior study
CXR 11-17-23 pm: interim intubation and GT. pulm vasc and parenchymal congestion.
CXR 01-05 and 08-31 AM, portable, improved pulm vasc and parenchymal congestion, sternotomy
TTE 11-17-23 (post cardiac arrest)
CONCLUSIONS
�Limited study
�Normal left ventricular chamber size. Mild concentric left ventricular
�hypertrophy. Normal left ventricular systolic function. Left ventricular
�ejection fraction is 50% by Grimaldo' s method.� Diastology not assessed.
�Since echocardiogram November 15, 2023 which was reviewed, there is no
�significant change.
TTE 11-15-23
CONCLUSIONS
�Normal left ventricular chamber size. Normal left ventricular systolic
�function. Normal regional wall motion. Mild concentric left ventricular
�hypertrophy. Left ventricular ejection fraction is 55-60% by visual estimate.
�Diastolic function indeterminate due to atrial fibrillation.
�Mildly thickened mitral valve leaflets. Mitral annular calcification. Mitral
�valve opens normally. Trace mitral regurgitation.
Subjective Dataa
Subjective Data
Date of Service:
Date of Service: December 04, 2023
Chief Complaint: [employer] Follow Up (Acute hypoxemic respiratory failure requiring noninvasive mechanical ventilation.)
Subjective:
Patient seen this morning. Says he feels well. On high flow nasal cannula 70% FiO2, saturating 90%. Wants to get out of bed.
Review of Systems
General: Other (Negative unless mentioned above)
Objective Data
Data Reviewed
Vital Signs / I&O / Oxygen:
Vital Signs
Temp Pulse Resp BP Pulse Ox
97.5 F 60 16 116/55 96
12/04/23 11:23 12/04/23 13:00 12/04/23 13:00 12/04/23 13:00 12/04/23 13:00
Intake and Output
12/03/23 12/04/23 12/05/23
06:59 06:59 06:59
Intake Total 200 / 250 300 / 300
Output Total 1400 / 1400 900 / 900 250 / 250
Balance -1400 / -1400 -700 / -650 50 / 50
SaO2 [NIV (Non Invasive 95
Ventilation)]
SaO2 [CPAP/PSV] 95
SaO2 [A/C] 96
SaO2 96
Nasal Cannula flow liters per 50
minute
Physical Exam
General: Respiratory Distress (with activity), Comfortable and Chills (negative)
HEENT: Normocephalic, Anicteric and Moist Mucous Membranes
Cardiovascular: S1-S2, Murmur (n), Peripheral Edema (n) and Other (normal rate)
Respiratory: Wheeze (negative), Crackles (Bilateral), Rhonchi (negative), Non-Labored Respirations and Stridor (n)
GI: Soft, Non Distended and Non Tender
Neurology: Awake, Alert, Oriented and No Motor Deficits
Skin: Warm and Dry
Labs/Micro/Reports
Lab Data
12/03/23 03:53
12/04/23 04:09
[2023-12-04] MEDS: LOPRESSOR 12.5 MG PO ×2 (08:10→19:43)
[2023-12-04] MEDS: MAGNESIUM OXIDE 500 MG PO (08:10)
[2023-12-04] MEDS: XANAX 0.5 MG PO (08:11)
[2023-12-04] MEDS: LOW STRENGTH ASPIRIN 81 MG PO (08:11)
[2023-12-04] MEDS: ZETIA 10 MG PO (08:11)
[2023-12-04 08:12] LABS: Glucose - Point of Care 153 mg/dl (70-99)
[2023-12-04] MEDS: PROTONIX 40 MG PO (08:12)
--- NOTE | 2023-12-04 09:55 | PTCARENOTE ---
Complete assessment done and noted in worklist/chart. HR SR/SB as per monitor, BP 105/66. Pt received on high flow, O2 decreased from 70% to 65%, and 50L. O2 sat [id number]%. Pt is TRISTAN and decreased BSs noted at bases bilat. Pt eating 1800 ADA,
2 gm NA breakfast now. +BS. R lower abd with PD cath capped at this time. Peritoneal dialysate dwelling at this time. Pt oliguric. Critical care glycemic protocol maintained with regular insulin infusing at 1.7 units/hr. Pt boosted and turned q
2hrs, call lin at side within reach. Dr Arnett is to see and assess pt this am.
[2023-12-04 10:12] LABS: Glucose - Point of Care 148 mg/dl (70-99)
[2023-12-04] MEDS: MARINOL 2.5 MG PO ×2 (10:14→17:24)
[2023-12-04] MEDS: NOVOLOG FLEXPEN 2 UNITS SC (12:12)
[2023-12-04 12:21] LABS: Glucose - Point of Care 262 mg/dl (70-99)
--- NOTE | 2023-12-04 12:27 | W.PN.NEPH.PH ---
Today's Communication / Plan
-
cont PD and dose MICKIE
Assessment/Plan
-
Assessment
-ESRD on PD
-volume overload
-CHF
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
-PAD
-HTN
-edema
-CAD/CABG
-DM2
-Hyponatremia
-In-hospital cardiac arrest 11/17/23
-VT arrest
s/p shock x1 and Epi x1 11/17/23
Plan
remains on high flow-mild improvement , increased steroids on 12/02
likely volume is not contributing to his resp symp
cotn PD 2.5 and 4.2 alternate, weights are stable.
he had minimal UF with 2.5 only bags
Hyponatremia-maintain FR
monitor h/h
BP labile on low dose BB -monitor for hypotension
hb stable, high ferritin , will dose mickie tody
d/w nursing
-
-
Date of Service: December 04, 2023
CC / HPI / ROS
-
Chief Complaint:
ESRD
History of Present Illness:
PD in progress-draining
s/p code 9 with VT 11/17/23
on high flow O2 and remains on IV Decadron
bp labile, low at nights
hb 9.8 no change, no labs today
Review of Systems:
no fever
no CP
Weights stable
improving O2 requirement
Labs
-
Labs:
WBC 10.4 10^3/uL (4.8-10.8) 12/03/23 03:53
RBC 3.36 10^6/uL (4.70-6.10) L 12/03/23 03:53
Hgb 9.8 g/dL (13.0-18.0) L 12/03/23 03:53
Hct 29.5 % (39.0-52.0) L 12/03/23 03:53
Plt Count 159 10^3/uL (130-400) 12/03/23 03:53
Sodium 127 mmol/L (135-145) L 12/04/23 04:09
Potassium 4.0 mmol/L (3.5-5.1) 12/04/23 04:09
Chloride 90 mmol/L (98-107) L 12/04/23 04:09
Carbon Dioxide 30 mmol/L (22-30) 12/04/23 04:09
BUN 79 mg/dl (9-20) H 12/04/23 04:09
Creatinine 6.8 mg/dL (0.7-1.3) H* 12/04/23 04:09
eGFR 8.42 12/04/23 04:09
Glucose 144 mg/dl (70-99) H 12/04/23 04:09
Calcium 7.6 mg/dl (8.4-10.2) L 12/04/23 04:09
Phosphorus 6.0 mg/dl (2.5-4.5) H 12/03/23 10:45
Cym-F-Kdgmcinnbjp Pept > 92446 pg/ml 11/29/23 04:30
Albumin 2.6 g/dl (3.5-5.0) L 12/03/23 10:45
Physical Exam
-
Vital Signs:
Vital Signs
Temp Pulse Resp BP Pulse Ox
97.5 F 55 13 128/72 95
12/04/23 11:23 12/04/23 09:00 12/04/23 09:00 12/04/23 08:10 12/04/23 11:41
Cardiovascular:: Regular rate and rhythm
Lung Excursion:: Abnormal (decreased)
Abdomen:: Nontender and Soft
Extremity Edema:: None: Bilateral:
Sweeney Catheter: No
--- NOTE | 2023-12-04 12:31 | W.PN.UPDATE ---
Update Note
Progress Note Update
Pt seen during PD , draining
UF ~500cc
cont alternate 2.5 and 4.2
BG are better control
fluid is clear
--- NOTE | 2023-12-04 13:13 | PTCARENOTE ---
PD exchange done, new dialysate bag dwelling time started at 12 N, [address] Connors in to see and assess pt. Will Con't PD alternating 2.5% and 4.25% dialysate. Encouraged pt to get pt OOB to chair, but he is refusing at this
time, saying he feels too weak. Bed put in chair position while eating lunch now, and has been turning q 2hrs with assistance when resting. P/T consulted. Pt remains on Reg insulin drip, presently at 4 units/hr, following the CCGP.
[2023-12-04] MEDS: EPOGEN 10000 UNITS SC (13:28)
--- NOTE | 2023-12-04 13:38 | PTCARENOTE ---
R lat drsg changed, cleaned with NS, and new drsg applied. Blister is healing well, new skin layer intact, wound closed now.
[2023-12-04 14:51] LABS: Glucose - Point of Care 301 mg/dl (70-99)
[2023-12-04 15:45] LABS: Glucose - Point of Care 267 mg/dl (70-99)
--- NOTE | 2023-12-04 16:47 | PTCARENOTE ---
Complete CHG bath given, linen changed, teeth brushed and swabbed. PD exchange done again at bedside, volume sums and times noted in worklist. CCGylcemic protocol maintained, Reg insulin drip currently at column 3, 5 units/hr. Pt turned and made
comfortable. O2 sat= 93% on Hi lali 65%, 50L. I/S done and encouraged to be done q 1hr throughout the day. Pt able to reach between [id number] TV.
[2023-12-04 16:55] LABS: Glucose - Point of Care 150 mg/dl (70-99)
[2023-12-04] MEDS: NOVOLOG FLEXPEN 4 UNITS SC (17:19)
[2023-12-04] MEDS: COUMADIN 3 MG PO (17:24)
[2023-12-04] MEDS: SOLU-MEDROL PF 80 MG IV ×2 (17:25→23:43)
[2023-12-04 17:49] LABS: Glucose - Point of Care 144 mg/dl (70-99)
[2023-12-04 18:52] LABS: Glucose - Point of Care 112 mg/dl (70-99)
[2023-12-04] MEDS: NOVOLIN R INSULIN INFUSION 100 IV (19:34)
[2023-12-04] MEDS: ROXICODONE 10 MG PO (19:43)
[2023-12-04 19:44] LABS: Glucose - Point of Care 104 mg/dl (70-99)
--- NOTE | 2023-12-04 20:30 | PTCARENOTE ---
Received pt Aox3, VSS, NSR w/BBB on monitor, c/o pain in whole back, PRN medication administered. HI flow at 50L 60% with sats 95%. Insulins gtt infusing through left midline per Glycemic protocol call. PD dwelling at this time.
[2023-12-04 21:30] LABS: Glucose - Point of Care 117 mg/dl (70-99)
[2023-12-04] MEDS: LIPITOR 40 MG PO (22:12)
--- NOTE | 2023-12-04 23:36 | PTCARENOTE ---
Pt is Aox3, VSS, NSR with BBB on monitor, back pain resolving with PRN medication. PD completed pt was 100ml fluid excess, will repeat PD 4hours after last dwell time. Remains on Hiflow 50L 65%, with sats 94%, pt tolerating well. Pt able to turn
self in bed with reminders.
[2023-12-04 23:37] LABS: Glucose - Point of Care 183 mg/dl (70-99)
[2023-12-05] VITALS (24 sets, daily range): BP systolic 91–160; BP diastolic 46–107; PULSE 63; O2SAT 93; BMI 28.3
[2023-12-05 00:44] LABS: Glucose - Point of Care 185 mg/dl (70-99)
[2023-12-05 01:44] LABS: Glucose - Point of Care 111 mg/dl (70-99)
[2023-12-05 03:52] LABS: Glucose - Point of Care 103 mg/dl (70-99)
[2023-12-05 04:03] LABS: Hematocrit 30.2 % (39.0-52.0); Hemoglobin 10.3 g/dL (13.0-18.0); Mean Corp Hgb Conc. 34.1 g/dL (33.0-37.0); Mean Corpuscular Hgb 29.9 pg (27.0-31.0); Mean Corpuscular Volume 87.5 fL (80.0-94.0); Mean Platelet Volume 11.9 fL (7.4-10.4); Platelet Count 124 10^3/uL (130-400); Red Blood Cell Count 3.45 10^6/uL (4.70-6.10); Red Cell Dist. Width 15.9 % (11.5-14.5); White Blood Cell Count 12.9 10^3/uL (4.8-10.8)
[2023-12-05 04:37] LABS: ALT (SGPT) 481 U/L (0-50); AST (SGOT) 174 U/L (17-59); Albumin 2.5 g/dl (3.5-5.0); Alkaline Phosphatase 198 U/L (38-126); Blood Urea Nitrogen 87 mg/dl (9-20); Calcium 7.8 mg/dl (8.4-10.2); Carbon Dioxide 28 mmol/L (22-30); Chloride 88 mmol/L (98-107); Estimated Creatinine Clearance 11 ml/min; Glucose 98 mg/dl (70-99); Magnesium 1.9 mg/dl (1.6-2.3); Phosphorus 5.5 mg/dl (2.5-4.5); Potassium 3.6 mmol/L (3.5-5.1); Sodium 127 mmol/L (135-145); Total Bilirubin 0.5 mg/dl (0.2-1.3); Total Protein 5.1 g/dl (6.3-8.2); eGFR 8.42
[2023-12-05 05:44] LABS: Glucose - Point of Care 117 mg/dl (70-99)
[2023-12-05] MEDS: SOLU-MEDROL PF 80 MG IV ×4 (05:48→23:28)
[2023-12-05] MEDS: XANAX 0.5 MG PO ×2 (07:18→22:24)
[2023-12-05 07:42] LABS: Glucose - Point of Care 116 mg/dl (70-99)
[2023-12-05] MEDS: NOVOLOG FLEXPEN 4 UNITS SC (07:52)
[2023-12-05] MEDS: PROTONIX 40 MG PO (07:53)
[2023-12-05] MEDS: ZETIA 10 MG PO (07:53)
[2023-12-05] MEDS: LOW STRENGTH ASPIRIN 81 MG PO (07:53)
[2023-12-05] MEDS: LOPRESSOR 12.5 MG PO ×2 (07:53→19:51)
[2023-12-05] MEDS: MAGNESIUM OXIDE 500 MG PO (07:53)
[2023-12-05] MEDS: MIRALAX PO (07:54)
--- NOTE | 2023-12-05 08:00 | PTCARENOTE ---
recd pt handoff at bedside, PD exchanges continue as ordered. Flat but interactive when prompted, positioned for comfort. Desatted with need for increase high flow settings just prior to eating/repositioning. not symptomatic with transient
hypoxia, lowest pulse ox was 68%, recovered slowly into the low 90s. rest of assessment as documented.
--- NOTE | 2023-12-05 08:04 | W.PN.HOSP.TC ---
Today's Communication/Plan
-
see bold
Assessment / Plan
Assessment / Plan
Gen: NAD, awake and alert, well-developed, well-nourished
Eyes: Continues to remain EOMI, PERRLA, no scleral icterus.
Neck: supple.
CV: Continues to remain RRR, +S1/S2, no m/r/g.
Resp: Rales in the left chest anteriorly
Abd: +BS, soft, NT, ND
Skin: No rashes.
Neuro: CN 2-12 intact, non-focal.
Psych: Normal mood and affect.
CT chest 11/23/23:
1). There is no pulmonary embolism
2).There is diffuse groundglass airspace disease throughout both lungs, most prominent at the lung bases without associated pleural effusions or overfilling of the pulmonary vasculature suggesting that this diffuse interstitial pneumonia such as may
be seen with COVID 19.
3). Moderate-large volume abdominal ascites
4). Postoperative changes with wire sternal sutures and mediastinal clips
CXR 11/26/23: Hazy patchy bibasilar opacification increased in comparison to most recent prior chest radiograph, possibly representing pneumonitis.
CXR 11/28/23: Worsening diffuse interstitial pneumonia.
CT chest 12/03/23:
1. Diffuse interstitial and groundglass opacities throughout both lungs with some improved aeration compared to the chest CT from 11/23/2023.
2. Moderate upper abdominal ascites.
Acute hypoxic respiratory failure:
-After his prolonged hospital course and based on the evidence we have at hand, it appears etiology is acute lung injury due to acute interstitial pneumonia/inflammatory pneumonitis per pulm
-Was on IV dexamethasone, then transitioned to prednisone, now on Solumedrol 125mg IV Q6H
-was on insulin drip for steroid-induced hyperglycemia, then transitioned to SC insulin, now back on insulin gtt.
-was weaned down to mid flow 8L O2 on 11/27/23 from High Flow Oxygen prior. Now on 50L/100% highflow.
-No need for antibiotics
-RF NEG, ESR 80, CRP 10.8
-rest of CTD panel pending (CCP-Ab, Scl-70, centromere, ADELAIDA, CRP, Jeanne-1 and SS-A + SS-B)
ESRD on PD:
-Continue PD per nephrology. Nephrology following.
-Volume effectively coming off but would not be feasible upon discharge for either home (prob can not do it by himself) or SNF (would not be accepted).
-Would likely require conversion to hemodialysis but will defer to nephrology for timing
Cardiopulmonary arrest/CAD:
-VT/V Fib arrest on 11/17/23 with ROSC
-V. tach-->TDP-->V Fib-->PEA. CPR abt 3 min and Epinephrine x3. V Fib s/p shock 360J x1--> ROSC achieved.
-On aspirin, beta-blockers increased metoprolol 25 mg twice a day, on statin atorvastatin 40 mg p.o. nightly.
-Latest EKG if QTc is 516ms, monitor
-Right heart cath showed PCWP of 13 on 11/24/23
-Transthoracic echocardiogram--> EF 50%, mild concentric left ventricular hypertrophy, no significant changes from prior echo.
-Cardiology following
-Known history of CAD with CABG back in 1995.
-Plan for left heart cardiac cath once respiratory status stable (possible AICD)
Peripheral vascular disease:
-cont ASA/statin.
-Known PVD, femoropopliteal bypass 2016, right CEA 2019, left CEA 2018, right Stent SFA GROWTH HACKER 2020
-was on Heparin drip, now transitioned to warfarin on 11/25/23 (no bridge was needed). INR now therapeutic. Check INR today.
Acute metabolic encephalopathy:
-was multifactorial in nature with uremia and hypoxemia but now back to his baseline.
-Head CT with impression of no acute intracranial abnormality but some chronic changes noted.
-MRI brain negative for acute stroke or pathology.
Other problems:
Essential hypertension: cont BB
Atrial tachycardia: Continue BB
Chronic diastolic CHF: cont BB and maintenance of euvolemia via hemodialysis
Hypokalemia, resolved
Hypomagnesemia: cont PO Mg
Hyperlipidemia: cont statin/Zetia
Depression: Now off Zoloft to avoid prolonged QTc.
FULL/coumadin
I did discuss with the patient that if he were not to improve would he want to remain full code. He reported that he will think about this.
Anticipated Discharge: > 48 hours
Subjective/Interval History
-
Date of Service: December 05, 2023
Patient reports he had some anxiety this morning that led to shortness of breath. Denies shortness of breath at this time. As per nursing, patient was being pulled up in the bed that he desaturated into the 60s.
Objective Data
-
Labs:
Laboratory Results
12/05/23
03:48
WBC 12.9 H
Hgb 10.3 L
Hct 30.2 L
Plt Count 124 L D
Sodium 127 L
Potassium 3.6
Chloride 88 L
Carbon Dioxide 28
BUN 87 H
Creatinine 6.8 H*
Glucose 98
Calcium 7.8 L
Total Bilirubin 0.5
AST 174 H
ALT 481 H
Alkaline Phosphatase 198 H
Vital Signs:
Vital Signs
Temp Pulse Resp BP Pulse Ox
97.8 F 67 18 119/56 94
12/05/23 07:44 12/05/23 07:53 12/05/23 07:00 12/05/23 07:53 12/05/23 07:43
I&O
12/04/23 12/05/23 12/06/23
06:59 06:59 06:59
Intake Total 200 / 251.7 685.8 / 685.8 300 / 300
Output Total 900 / 900 1150 / 1150
Balance -700 / -648.3 -464.2 / -464.2 300 / 300
--- NOTE | 2023-12-05 08:08 | W.PN.INTV ---
Today's Communication / Plan
Recommendations
Steroids raised to 125mg IV q6hr on 12/02 --> CT chest 2 days ago shows improvement in degree of b/l opacities. Reduced steroids to 80mg IV q6hr on 12/04 --> will reduce to 60mg IV q6hr tomorrow
Serial CXR
Observe off antibiotics -last received cefepime on 11/21; prior to that received Zosyn on 11/18 and IV vanco on 11/17/2023
Encouraged to work with PT/OT and will need higher O2 with NRB during the sessions
While in bed he needs to use the incentive spirometer
Aim for negative fluid balance via peritoneal dialysis
Monitor BG while on insulin gtt; wean off when able - diabetic SUGAR CONTROLLER managing
Low threshold to intubate
Guarded prognosis
GOC discussion is warranted to address code status - I discussed being full code and what that entails today. Also discussed DNR/DNI. He wants to think about this for now - remains full code for now.
Assessment
-
Assessment:
Mr Blair Thakkar is a 63/M adm 11-12 with confusion and EV edema. Known h/o CKD on PD, recently not able to do PD himself due to confusion, did. At ER, confused, hypoxemic. Seen by Neurology, no acute findings on CT and MRI brain. Seen by
Renal, resumed PD soon after adm.� VTach episode on night -, received IV Mag with resolution. VTach returned on early afternoon 11-17, started Mag IV infusion, MS continued deteriorating, became unresponsive, VTach deteriorated to TDP, then
VFib, shock at 360K x1, developed PEA, received 3 doses epinephrine, total CPR time about 3 min with ROSC, intubated by anesthesia with no reported difficulty
Impression:
Acute hypoxemic respiratory failure: Bilateral infiltrates with thick GGO seen on CTA chest from 11/23/2023 --> repeat CT chest on 12/03 shows persistent albeit improved bilateral infiltrates with improved confluent GGO
Differential diagnosis includes pulmonary edema/inflammatory pneumonitis/less likely infectious --> based on his imaging and him being net negative I believe this is inflammatory pneumonitis (idioapathic at this point)
Hx of bilateral ground-glass opacities on former CT imaging from April 2021
Cardiac arrest �11-17-23
VTach, TDP, VFib, PEA
Low normal serum Mg on 11-16 and given IV Mag on 11-16 and also 11-17 (Mg was running at time of arrest)
Transaminitis - could be reaction from the high-dose steroids
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
CKD on PD
CAD s/p CABG
PVD s/p bilateral EV stenting
Emergent stenting RLE Jun 2021 ()
DM
HTN
HLD
Depression
Obesity

Plan:
11/21/2023: Transferred back to the ICU with increased work of breathing necessitating�noninvasive mechanical ventilation.� Acute onset.
Chest x-ray at that time with ? mild pulmonary edema bilaterally.
CT chest 11/23/2023: Extensive bilateral groundglass opacities with subsegmental bibasilar atelectasis.� No pulmonary embolism.
CT Chest 12/03/2023: Diffuse interstitial and groundglass opacities throughout both lungs with some improved aeration compared to the chest CT from 11/23/2023.
-
Acute Hypoxemic Respiratory Failure: worsening bilateral infiltrates on CXR from 11/28/2023 - suspect an inflammatory pneumonitis; cannot rule out aspiration with subsequent acute lung injury.� Patient has never been on amiodarone. Bilateral
interstitial/groundglass opacities improved based on today's CT chest (12/03/2023)
Hypoventilation is also contributing to his hypoxia as he is barely pulling 1L on the incentive spirometer and gets very SOB and hypoxic with movement
No antibiotics were given-no evidence for infection.
Right heart catheterization 11/24/2023: Not consistent with volume overload.
Responding to steroids -->�was on solumedrol 40mg IV q6hr (after being on prednisone 40mg daily x 2 days prior on 11/27 + 11/28, and before that was on decadron 4mg IV q8hr from 11/24 - 11/26)- considering he remains hypoxic with inability to reduce
FiO2 lower than 60%, I raised steroids to 125mg IV q6hr on 12/02; adjust as pt improves --> will reduce to 60mg IV q6hr starting tomorrow (12/06);� trend CRP, BNP and procal --> CRP continues to downtrend, BNP remains >27k
Encourage incentive spirometer and up OOB as tolerated
Of note, he has had bilateral groundglass opacities on his chest on former CT imaging as far back as April 2021.� He denies any personal history of connective tissue disease.� I will check a CTD panel including: CCP-Ab, Scl-70, centromere, ADELAIDA, CRP,
MARY, Jeanne-1 and SS-A + SS-B.; RF negative thus far. - of note, labs were checked prior to raising his steroid dose few days ago)
-
continue physical therapy/Occupational Therapy - may need NRB over high flow in order to work with PT/OT
Speech evaluation noted: No overt aspiration.� Continue with aspiration precautions.
-
Monitor BG with goal BG 140-180mg/dL;�glycemic protocol with insulin drip being restarted today due to persistent hyperglycemia. Diabetic SUGAR CONTROLLER on board
Continue to trend LFTs
-
Based on today's CT Chest, there is persistence but improvement in his bilateral opacities, now with persistent b/l opacities but his confluent GGO has reduced. I was considering bronchoscopy with BAL, however given his high FiO2 requirements and
physical deconditioning, the practicality of obtaining a BAL may not be possible without high risk of him becoming intubated.

VTach evening 11-16-no further episodes.
Low normal Mg, replaced IV at time of event
No gross e-lyte abnormalities at time of VTach, TDP, VFib/PEA
Status post cardiac arrest 11-17
Required intubation-CPR, 3 epi doses, shock x1 at 360. CPR for about 3 min till ROSC
Extubated 11/18/2023.
Continue to monitor electrolytes with goal K>4, Mg>2
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
Cardiology continues to follow.
-
Nephrology continues to follow.
Continue to maintain negative fluid balance via peritoneal dialysis.
-
Antibiotics discontinued 11/19/2023.� No evidence for infection.
Restarted on cefepime 11/21/2023: � No evidence for infection.� Discontinued antibiotics.
Procal has downtrended compared to prior value, indicating we have adequate source control
All cultures were negative.
-
Hyperglycemia: Steroid-induced
Goal BG 140-180 mg/dL
ISS AC
Glycemic protocol with insulin drip restarted on 12/03 due to hyperglycemia --> wean off as his steroid dose decreases, and then resume basal-bolus insulin dosing
-
On chronic coumadin for h/o PVD s/p stents - goal INR: 2-3
Daily INR and adjust Coumadin as needed
Monitor for bleeding
-
He was downgraded to IMU on 11/27/2023, however he is now upgraded back to ICU level care given his high FiO2 requirements as well as hyperglycemia requiring insulin gtt.
Critical care statement: A total of 40 minutes of critical care time was provided for this patient today. This includes management of unstable vital signs, evaluation of the patient at bedside, reviewing the patient's pertinent medical records
including radiographs, microbiology, laboratory evaluations, and discussion with primary team, consultants, pharmacy, nutrition, physical therapy, case management, charge nurse, critical care nursing, and respiratory therapy.

Diagnostic tests:
CT Chest w/o contrast 12-03-2023:
1. Diffuse interstitial and groundglass opacities throughout both lungs with some improved aeration compared to the chest CT from 11/23/2023.
2. Moderate upper abdominal ascites.
CTA Chest 11-23-2023:
1). There is no pulmonary embolism
2).There is diffuse groundglass airspace disease throughout both lungs, most prominent at the lung bases without associated pleural effusions or overfilling of the pulmonary vasculature suggesting that this diffuse interstitial pneumonia such as may
be seen with COVID 19.
3). Moderate-large volume abdominal ascites
4). Postoperative changes with wire sternal sutures and mediastinal clips
CXR 12-05-2023: Persistent generalized diffuse bilateral interstitial and groundglass opacity. Slightly diminished degree of inspiration compared to prior examination, which may be contributing to slight increase crowding of parenchymal markings at
the lung bases. No pneumothorax. The cardiomediastinal margins are stable.
CXR 11-30-2023:� Compared to CXR from 11/28/2023; Moderate diffuse interstitial pneumonia, not significantly changed when compared with prior study
CXR 11-17-23 pm: interim intubation and GT. pulm vasc and parenchymal congestion.
CXR 01-05 and 10-24 AM, portable, improved pulm vasc and parenchymal congestion, sternotomy
TTE 11-17-23 (post cardiac arrest)
CONCLUSIONS
�Limited study
�Normal left ventricular chamber size. Mild concentric left ventricular
�hypertrophy. Normal left ventricular systolic function. Left ventricular
�ejection fraction is 50% by Grimaldo' s method.� Diastology not assessed.
�Since echocardiogram November 15, 2023 which was reviewed, there is no
�significant change.
TTE 11-15-23
CONCLUSIONS
�Normal left ventricular chamber size. Normal left ventricular systolic
�function. Normal regional wall motion. Mild concentric left ventricular
�hypertrophy. Left ventricular ejection fraction is 55-60% by visual estimate.
�Diastolic function indeterminate due to atrial fibrillation.
�Mildly thickened mitral valve leaflets. Mitral annular calcification. Mitral
�valve opens normally. Trace mitral regurgitation.
Subjective Dataa
Subjective Data
Date of Service:
Date of Service: December 05, 2023
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
Subjective:
Seen this morning. Doing well and says that he feels a little better. He denies cough. BP 134/70, heart rate 68, saturating 91% on high flow nasal cannula 65% FiO2. No chest pain, headache, fevers or chills.
Review of Systems
General: Other (12 point ROS performed and is negative unless mentioned above.)
Objective Data
Data Reviewed
Vital Signs / I&O / Oxygen:
Vital Signs
Temp Pulse Resp BP Pulse Ox
97.8 F 63 17 134/70 97
12/05/23 07:44 12/05/23 11:00 12/05/23 11:00 12/05/23 11:00 12/05/23 11:13
Intake and Output
12/04/23 12/05/23 12/06/23
06:59 06:59 06:59
Intake Total 200 / 251.7 685.8 / 685.8 300 / 300
Output Total 900 / 900 1150 / 1150 50 / 50
Balance -700 / -648.3 -464.2 / -464.2 250 / 250
SaO2 [NIV (Non Invasive 95
Ventilation)]
SaO2 [CPAP/PSV] 95
SaO2 [A/C] 96
SaO2 97
Nasal Cannula flow liters per 50
minute
Physical Exam
General: Respiratory Distress (with activity), Comfortable and Chills (negative)
HEENT: Normocephalic, Anicteric and Moist Mucous Membranes
Cardiovascular: S1-S2, Murmur (n), Peripheral Edema (n) and Other (normal rate)
Respiratory: Clear (Anteriorly), Wheeze (negative), Crackles (Posterior bibasilar), Rhonchi (negative), Non-Labored Respirations and Stridor (n)
GI: Soft, Non Distended and Non Tender
Neurology: Awake, Alert, Oriented and No Motor Deficits
Skin: Warm and Dry
Labs/Micro/Reports
Lab Data
12/05/23 03:48
12/05/23 03:48
Laboratory Results
12/05/23
10:00
PT 36.2 H
INR 3.56
[2023-12-05 09:48] LABS: Glucose - Point of Care 207 mg/dl (70-99)
[2023-12-05 10:32] LABS: INR 3.56; PT 36.2 Sec (11.4-14.6)
[2023-12-05 10:44] LABS: Glucose - Point of Care 234 mg/dl (70-99)
[2023-12-05] MEDS: ANESTHETIC LOZENGE 1 LOZENGE PO (11:01)
[2023-12-05] MEDS: MARINOL 2.5 MG PO (11:01)
--- NOTE | 2023-12-05 11:41 | W.PN.NEPH.PH ---
Today's Communication / Plan
-
cont PD
Assessment/Plan
-
Assessment
-ESRD on PD
-volume overload
-CHF
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
-PAD
-HTN
-edema
-CAD/CABG
-DM2
-Hyponatremia
-In-hospital cardiac arrest 11/17/23
-VT arrest
s/p shock x1 and Epi x1 11/17/23
Plan
remains on high flow , weaning steroids
likely volume is not contributing to his resp symp
cotn PD 2.5 and 4.2 alternate, weights are stable.
Hyponatremia-maintain FR
monitor h/h
BP labile on low dose BB -monitor for hypotension
hb stable, high ferritin , dose mickie 10k 12/04
-
-
Date of Service: December 05, 2023
CC / HPI / ROS
-
Chief Complaint:
ESRD
History of Present Illness:
PD in progress-draining
s/p code 9 with VT 11/17/23
on high flow O2 and remains on IV Decadron
bp labile, low at nights
hb 10.3 better
Review of Systems:
no fever
no CP
Weights stable
Labs
-
Labs:
WBC 12.9 10^3/uL (4.8-10.8) H 12/05/23 03:48
RBC 3.45 10^6/uL (4.70-6.10) L 12/05/23 03:48
Hgb 10.3 g/dL (13.0-18.0) L 12/05/23 03:48
Hct 30.2 % (39.0-52.0) L 12/05/23 03:48
Plt Count 124 10^3/uL (130-400) L D 12/05/23 03:48
Sodium 127 mmol/L (135-145) L 12/05/23 03:48
Potassium 3.6 mmol/L (3.5-5.1) 12/05/23 03:48
Chloride 88 mmol/L (98-107) L 12/05/23 03:48
Carbon Dioxide 28 mmol/L (22-30) 12/05/23 03:48
BUN 87 mg/dl (9-20) H 12/05/23 03:48
Creatinine 6.8 mg/dL (0.7-1.3) H* 12/05/23 03:48
eGFR 8.42 12/05/23 03:48
Glucose 98 mg/dl (70-99) 12/05/23 03:48
Calcium 7.8 mg/dl (8.4-10.2) L 12/05/23 03:48
Phosphorus 5.5 mg/dl (2.5-4.5) H 12/05/23 03:48
Clp-O-Xfvkqnavmvj Pept > 35732 pg/ml 11/29/23 04:30
Albumin 2.5 g/dl (3.5-5.0) L 12/05/23 03:48
Physical Exam
-
Vital Signs:
Vital Signs
Temp Pulse Resp BP Pulse Ox
97.8 F 63 17 134/70 97
12/05/23 07:44 12/05/23 11:00 12/05/23 11:00 12/05/23 11:00 12/05/23 11:13
Cardiovascular:: Regular rate and rhythm
Respiratory:: Bilateral: CTA
Lung Excursion:: Normal
Abdomen:: Nontender and Soft
Extremity Edema:: None: Bilateral:
Sweeney Catheter: No
--- NOTE | 2023-12-05 11:44 | W.PN.UPDATE ---
Update Note
Progress Note Update
pt seen during PD dwell
total UF 950cc
cont 2.5 and 4.2 alternate
FV 2lit q4h exchanges
[2023-12-05 11:47] LABS: Glucose - Point of Care 264 mg/dl (70-99)
--- NOTE | 2023-12-05 12:02 | PTCARENOTE ---
Continuing on PD exchanges, seen by Jessica Riley, and Melquiades. PD site care given, slight crusty drainage, cleaned, redressed. Positioned for comfort. Slowly weaning Fio2 on high flow.
[2023-12-05 12:42] LABS: Glucose - Point of Care 167 mg/dl (70-99)
[2023-12-05 13:42] LABS: Glucose - Point of Care 145 mg/dl (70-99)
[2023-12-05] MEDS: NOVOLOG FLEXPEN SC ×2 (14:17→16:52)
[2023-12-05] MEDS: NOVOLIN R INSULIN INFUSION 100 IV (14:46)
[2023-12-05 14:56] LABS: Glucose - Point of Care 88 mg/dl (70-99)
--- NOTE | 2023-12-05 15:00 | PTCARENOTE ---
refused lunch. answers questions when asked and interactive but flat affect. glycemic protocol continuing, see readings, presently 88, denies symptomatic and does not wish to eat anything at present. hourly glucose checks.
[2023-12-05] MEDS: ROXICODONE 10 MG PO (15:53)
[2023-12-05 15:54] LABS: Glucose - Point of Care 173 mg/dl (70-99)
[2023-12-05] MEDS: MARINOL PO (16:53)
[2023-12-05 17:01] LABS: Glucose - Point of Care 91 mg/dl (70-99)
[2023-12-05 17:07] LABS: ANA, IgG Reflex to HEp-2 None Detected (None Detected)
[2023-12-05 17:15] LABS: CCP Antibody IgG/IgA 5 Units (0-19)
--- NOTE | 2023-12-05 17:29 | PTCARENOTE ---
requested and received miralax dose (refused earlier). No other change. Tired and flat affect. resting in bed watching TV.
[2023-12-05] MEDS: MIRALAX 17 GRAMS PO (18:37)
[2023-12-05 18:39] LABS: Glucose - Point of Care 177 mg/dl (70-99)
[2023-12-05 20:39] LABS: Glucose - Point of Care 149 mg/dl (70-99)
--- NOTE | 2023-12-05 20:59 | PTCARENOTE ---
Report received from previous shift RN [id number]. Pt in bed, AAO3, no complaints offered. Prior shift RN completing PD exchange. Pt has flat affect, denies current pain, reports neuropathy in b/l feet. Pt is TRISTAN and at rest, shallow nonlabored
respirations noted, reports orthopnea, lung sounds decreased throughout. Pt is on HiFlow O2 (50L/70%), pox 90-96%. IS at bedside and encouraged, pt achieving 750-1000ml. Telemetry rhythm reveals SR w oc PVCs, HR 60's. During physical assessment pt
had a brief burst of paroxysmal atrial tachycardia, strip mounted in pt chart. Pt has trace anasarca noted, weakly palpable peripheral pulses present. B/L lower extremity tubigrip compression stocking in place, will remove HS per order. HypoBS,
abdomen round full. Pt reports poor appetite and states he has not had a bowel movement 'in a while,' denies constipation discomfort and nausea at this time. Pt reportedly has not voided yet today and states he does not void daily. Pt receiving Q4H
peritoneal dialysis exchanges. Skin as documented. LUE midline catheter w insulin drip for glycemic protocol, see worklist flowsheet for full details. Call lin within reach, safe environment maintained. Will monitor closely.
[2023-12-05] MEDS: LIPITOR 40 MG PO (22:24)
[2023-12-05 22:41] LABS: Glucose - Point of Care 76 mg/dl (70-99)
[2023-12-05] MEDS: FLUSH (NSS) 2 FLUSH IV ×2 (23:29→23:40)
[2023-12-05 23:35] LABS: Glucose - Point of Care 95 mg/dl (70-99)
[2023-12-05] MEDS: APRESOLINE 10 MG IV (23:39)
[2023-12-06] VITALS (25 sets, daily range): BP systolic 89–156; BP diastolic 23–87; BMI 28.2
[2023-12-06] MEDS: ROXICODONE 10 MG PO ×3 (00:17→23:23)
[2023-12-06 00:41] LABS: Glucose - Point of Care 165 mg/dl (70-99)
[2023-12-06] MEDS: XANAX 0.5 MG PO ×3 (00:44→21:50)
--- NOTE | 2023-12-06 00:59 | PTCARENOTE ---
Repositioning patient in bed Q2H for skin integrity. Crackles heard in R base, oc nonproductive cough. Pt rang call lin stating he felt anxious, PRN Xanax given at 2224. Pt reported generalized pain, 9/10, PRN Roxicodone administered per order.
~0030 Pt reported continued anxiety, dyspnea, and is slightly diaphoretic; dicussed w managing jeweler DRAW FRAME OPERATOR Maurilio, additional 1x dose 0.5 Xanax PO ordered and administered and cool washcloth applied to pt's forehead. Pox 86-92%, RT called and increased
HiFlow O2 at this time to 55L/70%. Pt currently sleeping when undisturbed. Call lin within reach. Will monitor closely.
[2023-12-06 01:43] LABS: Glucose - Point of Care 178 mg/dl (70-99)
[2023-12-06 02:46] LABS: Glucose - Point of Care 170 mg/dl (70-99)
[2023-12-06 04:25] LABS: Venous Blood Gas B.E. 4.1 mmol/L (-4 to +4); Venous Blood Gas HCO3 29.7 mmol/L (22-27); Venous Blood Gas pCO2 48 mmHg (35-48); Venous Blood Gas pO2 46 mmHg (30-50)
--- NOTE | 2023-12-06 04:30 | PTCARENOTE ---
Pt sleeping when undisturbed. No change in assessment. Continuing glycemic protocol. Will continue to monitor.
[2023-12-06 04:31] LABS: Glucose - Point of Care 92 mg/dl (70-99)
[2023-12-06 04:45] LABS: Hematocrit 31.9 % (39.0-52.0); Hemoglobin 10.9 g/dL (13.0-18.0); Mean Corp Hgb Conc. 34.2 g/dL (33.0-37.0); Mean Corpuscular Hgb 29.2 pg (27.0-31.0); Mean Corpuscular Volume 85.5 fL (80.0-94.0); Mean Platelet Volume 11.5 fL (7.4-10.4); Platelet Count 122 10^3/uL (130-400); Red Blood Cell Count 3.73 10^6/uL (4.70-6.10); Red Cell Dist. Width 16.3 % (11.5-14.5)
[2023-12-06 04:57] LABS: INR 3.53; PT 35.9 Sec (11.4-14.6)
[2023-12-06 05:14] LABS: ALT (SGPT) 517 U/L (0-50); AST (SGOT) 173 U/L (17-59); Albumin 2.6 g/dl (3.5-5.0); Alkaline Phosphatase 222 U/L (38-126); Blood Urea Nitrogen 81 mg/dl (9-20); Calcium 7.7 mg/dl (8.4-10.2); Carbon Dioxide 28 mmol/L (22-30); Chloride 92 mmol/L (98-107); Estimated Creatinine Clearance 11 ml/min; Glucose 85 mg/dl (70-99); Phosphorus 5.3 mg/dl (2.5-4.5); Potassium 3.7 mmol/L (3.5-5.1); Sodium 128 mmol/L (135-145); Total Bilirubin 0.6 mg/dl (0.2-1.3); Total Protein 5.2 g/dl (6.3-8.2); eGFR 8.89
[2023-12-06] MEDS: FLUSH (NSS) 2 FLUSH IV (05:16)
[2023-12-06] MEDS: SOLU-MEDROL PF 80 MG IV (05:16)
[2023-12-06 05:17] LABS: NT-proBNP 24700 pg/ml
[2023-12-06 06:39] LABS: Glucose - Point of Care 164 mg/dl (70-99)
--- NOTE | 2023-12-06 07:21 | W.PN.INTV ---
Today's Communication / Plan
Recommendations
O2
MP
Insulin gtt
Hold ezetimibe, monitor LFTs
Assessment
-
Assessment:
Mr Blair Thakkar is a 63/M adm 11-12 with confusion and EV edema. Known h/o CKD on PD, recently not able to do PD himself due to confusion, did. At ER, confused, hypoxemic. Seen by Neurology, no acute findings on CT and MRI brain. Seen by
Renal, resumed PD soon after adm.� VTach episode on night 11-16, received IV Mag with resolution. VTach returned on early afternoon 11-17, started Mag IV infusion, MS continued deteriorating, became unresponsive, VTach deteriorated to TDP, then
VFib, shock at 360K x1, developed PEA, received 3 doses epinephrine, total CPR time about 3 min with ROSC, intubated by anesthesia with no reported difficulty
Impression:
Acute hypoxemic respiratory failure: Bilateral infiltrates with thick GGO seen on CTA chest from 11/23/2023 --> repeat CT chest on 12/03 shows persistent albeit improved bilateral infiltrates with improved confluent GGO
Differential diagnosis includes pulmonary edema/inflammatory pneumonitis/less likely infectious --> based on his imaging and him being net negative, this is inflammatory pneumonitis (idiopathic at this point)
Hx of bilateral ground-glass opacities on former CT imaging from April 2021
Cardiac arrest �11-17-23
VTach, TDP, VFib, PEA
Low normal serum Mg on 11-16 and given IV Mag on 11-16 and also 11-17 (Mg was running at time of arrest)
Transaminitis - could be reaction from the high-dose steroids
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
CKD on PD
CAD s/p CABG
PVD s/p bilateral EV stenting
Emergent stenting RLE Jun 2021 ()
DM
HTN
HLD
Depression
Obesity

Plan:
11/21/2023: Transferred back to the ICU with increased work of breathing necessitating�noninvasive mechanical ventilation.�
Chest x-ray at that time with ? mild pulmonary edema bilaterally.
CT chest 11/23/2023: Extensive bilateral groundglass opacities with subsegmental bibasilar atelectasis.� No pulmonary embolism.
CT Chest 12/03/2023: Diffuse interstitial and groundglass opacities throughout both lungs with some improved aeration compared to the chest CT from 11/23/2023.
-
Acute Hypoxemic Respiratory Failure: worsening bilateral infiltrates on CXR from 11/28/2023 - suspect an inflammatory pneumonitis; cannot rule out aspiration with subsequent acute lung injury.� Patient has never been on amiodarone. Bilateral
interstitial/groundglass opacities improved based on CT chest (12/03/2023)
Hypoventilation is also contributing to his hypoxia as he is barely pulling 1L on the incentive spirometer and gets very SOB and hypoxic with movement
No antibiotics were given-no evidence for infection.
Right heart catheterization 11/24/2023: Not consistent with volume overload.
Responding to steroids -->�was on solumedrol 40mg IV q6hr (after being on prednisone 40mg daily x 2 days prior on 11/27 + 11/28, and before that was on decadron 4mg IV q8hr from 11/24 - 11/26)- considering he remains hypoxic with inability to reduce
FiO2 lower than 60%, raised steroids to MP 125mg IV q6hr on 12/02; adjust as pt improves --> reduce to 60mg IV q6hr starting 12/06, will proceed to very slow taper over a period of weeks
Trend CRP, BNP and procal --> CRP continues to downtrend, BNP remained >27k since 11-12, barely down to 24,700 on 12-06
PCT declining on 12-06 (0.40) as c/w 1.36 (11-24): but CKD on PD
Encourage incentive spirometer and up OOB as able
Of note, he has had bilateral groundglass opacities on his chest on former CT imaging as far back as April 2021.� He denied any personal history of connective tissue disease.� Checking CTD panel including: CCP-Ab (normal), Scl-70, centromere, ADELAIDA
(negative), CRP, ESR (^), Jeanne-1 and SS-A + SS-B.; RF. - of note, labs were checked prior to raising his steroid dose
Based on CT Chest 12-03, there is improvement in bilateral opacities, now with persistent b/l opacities but his confluent GGO has reduced, films show now fibrosis and traction bronchiectasis
Considered bronchoscopy with BAL, however given his high FiO2 requirements and physical deconditioning, the practicality of obtaining a BAL may not be possible without high risk of him becoming intubated.
-
continue physical therapy/Occupational Therapy - may need NRB over high flow in order to work with PT/OT
Speech evaluation noted: No overt aspiration.� Continue with aspiration precautions.
-
Monitor BG with goal BG 140-180mg/dL;�glycemic protocol with insulin drip restarted due to persistent hyperglycemia. Diabetic COMPUTER NETWORK SPECIALIST on board
Currently requiring up to 7U novolog per h
Continue to trend LFTs
-
CXR 12-06: portable, mild interim improvement of basilar GGOs

VTach evening 11-16-no further episodes.
Low normal Mg, replaced IV at time of event
No gross e-lyte abnormalities at time of VTach, TDP, VFib/PEA
Status post cardiac arrest 11-17
Required intubation-CPR, 3 epi doses, shock x1 at 360. CPR for about 3 min till ROSC
Extubated 11/18/2023.
Continue to monitor electrolytes with goal K>4, Mg>2
Continue radiation monitor.
Right heart catheterization 11/24/2023: Not consistent with volume overload.
Cardiology has followed till 12-02, then will follow at a distance for eventual decision re ICD based on assessment of QT and LHC
-
Nephrology continues to follow.
Continue to maintain negative fluid balance via peritoneal dialysis.
-
Antibiotics discontinued 11/19/2023.� No evidence for infection.
Restarted on cefepime 11/21/2023: � No evidence for infection.� Discontinued antibiotics.
All cultures were negative.
-
Hyperglycemia: Steroid-induced
Goal BG 140-180 mg/dL
ISS AC
Glycemic protocol with insulin drip restarted on 12/03 due to hyperglycemia --> wean off as his steroid dose decreases, and then resume basal-bolus insulin dosing
Transaminitis and AP rising since 12-03
Abd US 12-06 with perihepatic ascites likely related to PD, s/p cholecystectomy, pancreas not visualized
On ezetimibe which could be causing the lab abnormalities, will d/c for now
-
On chronic coumadin for h/o PVD s/p stents - goal INR: 2-3
Daily INR and adjust Coumadin as needed
Monitor for bleeding
-
He was downgraded to IMU on 11/27/2023, however he is now upgraded back to ICU level of care given his high FiO2 requirements as well as hyperglycemia requiring insulin gtt.
D/w MDT
Prognosis remains guarded
Critical care time: 35 min

Diagnostic tests:
CT Chest w/o contrast 12-03-2023:
1. Diffuse interstitial and groundglass opacities throughout both lungs with some improved aeration compared to the chest CT from 11/23/2023.
2. Moderate upper abdominal ascites.
CTA Chest 11-23-2023:
1). There is no pulmonary embolism
2).There is diffuse groundglass airspace disease throughout both lungs, most prominent at the lung bases without associated pleural effusions or overfilling of the pulmonary vasculature suggesting that this diffuse interstitial pneumonia such as may
be seen with COVID 19.
3). Moderate-large volume abdominal ascites
4). Postoperative changes with wire sternal sutures and mediastinal clips
CXR 12-05-2023: Persistent generalized diffuse bilateral interstitial and groundglass opacity. Slightly diminished degree of inspiration compared to prior examination, which may be contributing to slight increase crowding of parenchymal markings at
the lung bases. No pneumothorax. The cardiomediastinal margins are stable.
CXR 11-30-2023:� Compared to CXR from 11/28/2023; Moderate diffuse interstitial pneumonia, not significantly changed when compared with prior study
CXR 11-17- pm: interim intubation and GT. pulm vasc and parenchymal congestion.
CXR - and 10- AM, portable, improved pulm vasc and parenchymal congestion, sternotomy
TTE 11-17-23 (post cardiac arrest)
CONCLUSIONS
�Limited study
�Normal left ventricular chamber size. Mild concentric left ventricular
�hypertrophy. Normal left ventricular systolic function. Left ventricular
�ejection fraction is 50% by Grimaldo' s method.� Diastology not assessed.
�Since echocardiogram November 15, 2023 which was reviewed, there is no
�significant change.
TTE 11-15-23
CONCLUSIONS
�Normal left ventricular chamber size. Normal left ventricular systolic
�function. Normal regional wall motion. Mild concentric left ventricular
�hypertrophy. Left ventricular ejection fraction is 55-60% by visual estimate.
�Diastolic function indeterminate due to atrial fibrillation.
�Mildly thickened mitral valve leaflets. Mitral annular calcification. Mitral
�valve opens normally. Trace mitral regurgitation.
Subjective Dataa
Subjective Data
Date of Service:
Date of Service: December 06, 2023
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
Subjective:
Remains on HFNC
Continues on systemic CS since at least 11-23, required initiation of IV insulin gtt for metabolic control
Appetite did not increase with use of dronabinol (patient refusing meds sometimes)
Review of Systems
General: Other (limited historian)
Objective Data
Data Reviewed
Vital Signs / I&O / Oxygen:
Vital Signs
Temp Pulse Resp BP Pulse Ox
97.8 F 63 18 126/75 90
12/06/23 04:00 12/06/23 06:00 12/06/23 06:00 12/06/23 06:00 12/06/23 06:00
Intake and Output
12/05/23 12/06/23 12/07/23
06:59 06:59 06:59
Intake Total 685.8 / 685.8 1453.9 / 1453.9
Output Total 1150 / 1150 850 / 850
Balance -464.2 / -464.2 603.9 / 603.9
SaO2 [NIV (Non Invasive 95
Ventilation)]
SaO2 [CPAP/PSV] 95
SaO2 [A/C] 96
SaO2 90
Nasal Cannula flow liters per 55
minute
Physical Exam
General: Respiratory Distress (with activity), Comfortable and Chills (negative)
HEENT: Normocephalic, Anicteric and Moist Mucous Membranes
Cardiovascular: S1-S2, Murmur (n), Peripheral Edema (n) and Other (normal rate)
Respiratory: Clear (Anteriorly), Wheeze (negative), Crackles (Posterior bibasilar), Rhonchi (negative), Non-Labored Respirations and Stridor (n)
GI: Soft, Non Distended and Non Tender
Neurology: No Motor Deficits and Other (sleepy, arousable, poor historian at this juncture)
Skin: Warm and Dry
Labs/Micro/Reports
Lab Data
12/06/23 04:16
12/06/23 04:16
Laboratory Results
12/05/23 12/06/23
10:00 04:16
PT 36.2 H 35.9 H
INR 3.56 3.53
--- NOTE | 2023-12-06 07:55 | PN.DE.MGMTRT ---
Insulin Management
- -
11/18/2023 Diabetes Management Consult
Admitted 11/12 for R foot wound, confusion, SOB, swelling. PMH renal failure with peritoneal dialysis, HTN, PVD type 2 diabetes. Prior to admission chart reflects he was taking 60 units Basaglar daily with NovoLog 28 units BID. A1C 8.6%. Patient
had cardiac arrest 11/16 now intubated on mechanical ventilation and insulin infusion. Prior to this patient was receiving Lantus in AM with AC NovoLog at reduced doses.
Will continue glycemic protocol at this time. If patient is weaned off of ventilator will assess for readiness to transition to subcutaneous insulin.
11/19/2023: Diabetes Management F/U:
Pt extubated last evening. Doing well, sitting up in bed, offers no complaints.
Glucose trended up to 197, remains on glycemic protocol requiring 0.8-7 units of insulin/ hr while NPO.
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
Will transition off drip. Give Lantus 30 units NOW, turn drip off 1 hr after.
Start AC NovoLog 8 units and moderate corrective insulin with meals. Start 1800 ADA diet. Accucheks AC/HS
Will follow for further needed insulin adjustments. Plan of care d/w pt and Nurse.
11/22/2023: Diabetes Management F/U:
Pt transferred back to ICU for increased O2 requirements.
Currently NPO for R/LHC today. Premeal glucose trended up to 345 requiring 3-7 units of corrective insulin.
Will make no changes to regimen at this time, reassess after procedure and make necessary adjustments to insulin dose
11/23/2023 Diabetes Management Follow Up
Patient glucose controlled on current regimen, trended down to 79 @ HS. Will slightly decrease AM Lantus dose to 27 units to start Wednesday, 11/24.
Patient is NPO for procedure, will order one time dose of Lantus 15 units now.
11/24/2023 Diabetes Management Follow Up
Cardiac cath cancelled yesterday due to patient hypoxia. Dexamethasone 4 mg BID started last evening, glucose up to 460. Insulin administered. Fasting glucose 393. Glycemic protocol has been started. Will continue today and reassess in AM/
11/25/2023 Diabetes Management Follow up
Patient remains on steroids, glucose controlled on glycemic protocol requiring .8 to 10 units NovoLog per hour. He is eating meals and receiving supplemental insulin. Will continue glycemic protocol, assess in AM for readiness to transition to
subq regimen. I spoke with patient nurse.
11/26/2023: Diabetes Management F/U:
Patient remains on steroids- Dexa 4mg Q8hrs, continues on glycemic protocol, glucose range 89-219 requiring .5 to 12 units NovoLog per hour.
He is eating meals and receiving supplemental insulin.
Plan is to start steroid taper today, will continue glycemic protocol for now and reassess later today for readiness to transition to SQ insulin.
11/29/2023: Diabetes Management F/U:
Steroids were tapered down to Pred 40mg daily--> transitioned off CC glycemic protocol to SQ insulin over the weekend
Noted for worsening oxygenation--> resumed high dose IV steroids--> Hyperglycemia.
Pt resting in bed, offers no complaints. Glucose has remained elevated, FBG 301 this AM, premeal range 199 to 345, Dr. Lopez has increased his AC NovoLog dose to 8 units. Will increase Lantus to 35 units, 1st dose will be given tomorrow AM. Cont
current AC dose and corrective insulin with meals
Will closely follow and adjust insulin if necessary.
11/30/2023 Diabetes Management Follow up
Patient continues on steroids. Glucose remains elevated > 200. Lantus to increase to 35 units this AM. NovoLog increased yesterday to 12 units, continued to require corrective insulin. Will increase AC NovoLog to 15 units. Will follow
12/01/2023 Diabetes Management Follow up
Patient continues on steroids. Insulin increased yesterday, glucose remains > 200. Lunch standing dose of NovoLog not given, glucose 364. Additional NPH given. Patients home Basaglar reported at 60 units. Will increase AM Lantus to 40 units,
will increase AC NovoLog to 18 units.
12/02/2023 Diabetes Management Follow up
Patient steroids decreased to 40 mg. Insulin increased again yesterday. Glucose remains in 300's. Will again increase Lantus to 50 units in AM with NovoLog 22 units AC with corrective insulin.
12/03/2023: Diabetes Management F/U:
Steroids were tapered down to Pred 40mg daily--> Pt was noted for worsening oxygenation--> resumed high dose IV steroids--> Solumedrol 125mg Q6hrs
Now with Hyperglycemia. Insulin was adjusted yesterday with minor improvement in glucose levels. FBG pending, was 258 before breakfast.
Will start CC Glycemic protocol for optimal glucose control in setting of escalated IV Steroids. Discussed with pt, Nurse and ICU rounding team.
12/06/2023: Diabetes Management F/U:
Patient remains on IV steroids- Methylpred 60mg Q6hrs and on glycemic protocol, glucose range 76-178 requiring .8 to 7 units NovoLog per hour.
His appetite is poor but eating some meals and receiving supplemental insulin.
Will continue glycemic protocol, clinically not ready to transition to SQ insulin today. Will closely follow.
Discussed with pt, Nurse and ICU rounding team.
Diabetes History
- -
Type of Diabetes: 2 requiring insulin
Pre-Admission Diabetes Regimen
12/06/23
04:16
Creatinine 6.5 H*
Lab Results
Hemoglobin A1c 8.6 % (4.0-5.6) H 11/13/23 06:09
Insulin Pump Settings
IP Diabetes Regimen
12/05/23 12/05/23 12/05/23
09:36 10:32 11:36
Glucose
POC Glucose 207 H 234 H 264 H
12/05/23 12/05/23 12/05/23
12:30 13:30 14:44
Glucose
POC Glucose 167 H 145 H 88
01/12/05/23 12/05/23
15:43 16:50 18:28
Glucose
POC Glucose 173 H 91 177 H
12/05/23 12/05/23 12/05/23
20:27 22:30 23:24
Glucose
POC Glucose 149 H 76 95
12/06/23 12/06/23 12/06/23
00:29 01:31 02:33
Glucose
POC Glucose 165 H 178 H 170 H
12/06/23 12/06/23 12/06/23
04:16 04:19 06:27
Glucose 85
POC Glucose 92 164 H
Meal type: Dinner
Meal type: Lunch
Meal type: Breakfast
Amount consumed: 20%
Amount consumed: Patient refused
Amount consumed: 85%
Patient Education
--- NOTE | 2023-12-06 08:00 | PTCARENOTE ---
Received patient from rfp writer RN. Patient is somnolent but arousable. Patient is AAOx3, flat affect, withdrawn. Sinus rhythm on monitor, still remains on high flow, 55L 70%, fine crackles ausculated bilaterally. Patient does not want
breakfast. PD catheter on right abdomen, due to be drained at 0900. Patient oliguric, has minimal appetite. Applied tubigrip stockings. Patient has insulin gtt infusing into left midline, glycemic protocol being continued. Will review orders,
patient is able to make needs known.
[2023-12-06] MEDS: NOVOLOG FLEXPEN SC (08:30)
[2023-12-06] MEDS: PROTONIX 40 MG PO (08:39)
[2023-12-06] MEDS: ZETIA 10 MG PO (08:39)
[2023-12-06] MEDS: LOPRESSOR 12.5 MG PO ×2 (08:39→20:23)
[2023-12-06] MEDS: LOW STRENGTH ASPIRIN 81 MG PO (08:39)
[2023-12-06] MEDS: MAGNESIUM OXIDE 500 MG PO (08:39)
[2023-12-06] MEDS: MIRALAX 17 GRAMS PO (08:40)
--- NOTE | 2023-12-06 08:41 | W.PN.HOSP.TC ---
Today's Communication/Plan
-
Continue high doses of steroids, oxygen supplementation.
Assessment / Plan
Assessment / Plan
Gen: NAD, awake and alert, well-developed, well-nourished
Eyes: Continues to remain EOMI, PERRLA, no scleral icterus.
Neck: supple.
CV: Continues to remain RRR, +S1/S2, no m/r/g.
Resp: Rales in the left chest anteriorly
Abd: +BS, soft, NT, ND
Skin: No rashes.
Neuro: CN 2-12 intact, non-focal.
Psych: Normal mood and affect.
CT chest 11/23/23:
1). There is no pulmonary embolism
2).There is diffuse groundglass airspace disease throughout both lungs, most prominent at the lung bases without associated pleural effusions or overfilling of the pulmonary vasculature suggesting that this diffuse interstitial pneumonia such as may
be seen with COVID 19.
3). Moderate-large volume abdominal ascites
4). Postoperative changes with wire sternal sutures and mediastinal clips
CXR 11/26/23: Hazy patchy bibasilar opacification increased in comparison to most recent prior chest radiograph, possibly representing pneumonitis.
CXR 11/28/23: Worsening diffuse interstitial pneumonia.
CT chest 12/03/23:
1. Diffuse interstitial and groundglass opacities throughout both lungs with some improved aeration compared to the chest CT from 11/23/2023.
2. Moderate upper abdominal ascites.
A/P:
Acute hypoxic respiratory failure:
-After his prolonged hospital course and based on the evidence we have at hand, it appears etiology is acute lung injury due to acute interstitial pneumonia/inflammatory pneumonitis per pulm
-Was on IV dexamethasone, then transitioned to prednisone, now on Solumedrol now 60 mg IV Q6H
-was on insulin drip for steroid-induced hyperglycemia, then transitioned to SC insulin, now back on insulin gtt and plan transition again.
-was weaned down to mid flow 8L O2 on 11/27/23 from High Flow Oxygen prior. Now on 50L/100% highflow.
-No need for antibiotics
-RF NEG, ESR 80, CRP 10.8
-rest of CTD panel pending (CCP-Ab, Scl-70, centromere, ADELAIDA, CRP, Jeanne-1 and SS-A + SS-B)
ESRD on PD:
-Continue PD per nephrology. Nephrology following.
-Volume effectively coming off but would not be feasible upon discharge for either home (prob can not do it by himself) or SNF (would not be accepted).
-Would likely require conversion to hemodialysis but will defer to nephrology for timing
Cardiopulmonary arrest/CAD:
-VT/V Fib arrest on 11/17/23 with ROSC
-V. tach-->TDP-->V Fib-->PEA. CPR abt 3 min and Epinephrine x3. V Fib s/p shock 360J x1--> ROSC achieved.
-On aspirin, beta-blockers increased metoprolol 25 mg twice a day, on statin atorvastatin 40 mg p.o. nightly.
-Latest EKG if QTc is 516ms, monitor
-Right heart cath showed PCWP of 13 on 11/24/23
-Transthoracic echocardiogram--> EF 50%, mild concentric left ventricular hypertrophy, no significant changes from prior echo.
-Cardiology following
-Known history of CAD with CABG back in 1995.
-Plan for left heart cardiac cath once respiratory status stable (possible AICD)
Peripheral vascular disease:
-cont ASA/statin.
-Known PVD, femoropopliteal bypass 2015, right CEA 2018, left CEA 2018, right Stent [employer] 2020
-was on Heparin drip, now transitioned to warfarin on 11/25/23 (no bridge was needed). INR now therapeutic. Check INR today.
Acute metabolic encephalopathy:
-was multifactorial in nature with uremia and hypoxemia but now back to his baseline.
-Head CT with impression of no acute intracranial abnormality but some chronic changes noted.
-MRI brain negative for acute stroke or pathology.
Other problems:
Essential hypertension: cont BB
Atrial tachycardia: Continue BB
Chronic diastolic CHF: cont BB and maintenance of euvolemia via hemodialysis
Hypokalemia, resolved
Hypomagnesemia: cont PO Mg
Hyperlipidemia: cont statin/Zetia
Depression: Now off Zoloft to avoid prolonged QTc.
FULL/coumadin
I did discuss again with the patient on 12/06 that if he were not to improve would he want to remain full code. He reported that he will think about this.
Total time spent on today's encounter was 52 minutes which included time spent in counseling the patient/family regarding diagnosis and treatment plan as listed above, goals of care, and symptom management. Case was discussed with nursing staff,
specialists, and care coordinators/case management. All labs and imaging personally reviewed by me. Remainder the time spent in detailed review of previous records, lab data, imaging, and other medical provider documentation.
Anticipated Discharge: > 48 hours
Subjective/Interval History
-
Date of Service: December 06, 2023
Patient still short of breath, remains on 15 L of oxygen, no chest pain. Afebrile
Objective Data
-
Labs:
Laboratory Results
12/06/23
04:16
WBC 15.0 H
Hgb 10.9 L
Hct 31.9 L
Plt Count 122 L
PT 35.9 H
INR 3.53
Sodium 128 L
Potassium 3.7
Chloride 92 L
Carbon Dioxide 28
BUN 81 H
Creatinine 6.5 H*
Glucose 85
Calcium 7.7 L
Total Bilirubin 0.6
AST 173 H
ALT 517 H*
Alkaline Phosphatase 222 H
Vital Signs:
Vital Signs
Temp Pulse Resp BP Pulse Ox
97.3 F 65 11 123/57 92
12/06/23 07:54 12/06/23 08:00 12/06/23 08:00 12/06/23 08:00 12/06/23 08:00
I&O
12/05/23 12/06/23 12/07/23
06:59 06:59 06:59
Intake Total 685.8 / 685.8 1453.9 / 1460.9
Output Total 1150 / 1150 850 / 850
Balance -464.2 / -464.2 603.9 / 610.9
[2023-12-06 08:57] LABS: Glucose - Point of Care 108 mg/dl (70-99)
--- NOTE | 2023-12-06 08:59 | W.PN.NEPH.PH ---
Today's Communication / Plan
-
US
Assessment/Plan
-
Assessment
-ESRD on PD
-volume overload
-CHF
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
-PAD
-HTN
-edema
-CAD/CABG
-DM2
-Hyponatremia
-In-hospital cardiac arrest 11/17/23
-VT arrest
s/p shock x1 and Epi x1 11/17/23
Plan
-PD ordered, alternate 2.5%and 4.25% 2L q4h exchanges
-check US Abd
-stop statin
-follow LFTs
-
-
Date of Service: December 06, 2023
CC / HPI / ROS
-
Chief Complaint:
ESRD
History of Present Illness:
PD in progress
s/p code 9 with VT 11/17/23
on high flow O2 and remains on IV Decadron
bp labile, low at nights
LFTs continue to rise
Review of Systems:
no fever
no CP
Weights stable
Labs
-
Labs:
WBC 15.0 10^3/uL (4.8-10.8) H 12/06/23 04:16
RBC 3.73 10^6/uL (4.70-6.10) L 12/06/23 04:16
Hgb 10.9 g/dL (13.0-18.0) L 12/06/23 04:16
Hct 31.9 % (39.0-52.0) L 12/06/23 04:16
Plt Count 122 10^3/uL (130-400) L 12/06/23 04:16
Sodium 128 mmol/L (135-145) L 12/06/23 04:16
Potassium 3.7 mmol/L (3.5-5.1) 12/06/23 04:16
Chloride 92 mmol/L (98-107) L 12/06/23 04:16
Carbon Dioxide 28 mmol/L (22-30) 12/06/23 04:16
BUN 81 mg/dl (9-20) H 12/06/23 04:16
Creatinine 6.5 mg/dL (0.7-1.3) H* 12/06/23 04:16
eGFR 8.89 12/06/23 04:16
Glucose 85 mg/dl (70-99) 12/06/23 04:16
Calcium 7.7 mg/dl (8.4-10.2) L 12/06/23 04:16
Phosphorus 5.3 mg/dl (2.5-4.5) H 12/06/23 04:16
Kgw-H-Oucqhhyxeph Pept 61390 pg/ml 12/06/23 04:16
Albumin 2.6 g/dl (3.5-5.0) L 12/06/23 04:16
Physical Exam
-
Vital Signs:
Vital Signs
Temp Pulse Resp BP Pulse Ox
97.3 F 64 11 123/57 92
12/06/23 07:54 12/06/23 08:39 12/06/23 08:00 12/06/23 08:39 12/06/23 08:00
Cardiovascular:: Regular rate and rhythm
Respiratory:: Bilateral: Coarse
Lung Excursion:: Normal
Abdomen:: Nontender and Soft
Bowel Sounds:: Normal
Extremity Edema:: None: Bilateral:
[2023-12-06 10:45] LABS: Glucose - Point of Care 125 mg/dl (70-99)
[2023-12-06] MEDS: NOVOLOG FLEXPEN 4 UNITS SC ×2 (10:52→18:37)
[2023-12-06] MEDS: MARINOL PO (10:53)
[2023-12-06] MEDS: SOLU-MEDROL PF 60 MG IV ×3 (11:46→23:23)
[2023-12-06] MEDS: NOVOLIN R INSULIN INFUSION 100 IV (11:47)
--- NOTE | 2023-12-06 12:00 | PTCARENOTE ---
No change since morning assessment. will attempt to wean down oxygen to goal of 90% saturation. Patient remains flat/withdrawn. Does not seem to have much motivation. Rubina present at bedside.
[2023-12-06 12:45] LABS: Glucose - Point of Care 147 mg/dl (70-99)
[2023-12-06 14:42] LABS: Glucose - Point of Care 91 mg/dl (70-99)
--- NOTE | 2023-12-06 16:00 | PTCARENOTE ---
No change in patient's assessement. Patient tolerating HD, Will notifiy RN when he orders dinner. Remains on glycemic protocol, Rubbed patient's back after attempt to have a BM. Will ask hospitalist for bowel regimen.
[2023-12-06 16:53] LABS: Glucose - Point of Care 137 mg/dl (70-99)
[2023-12-06 17:53] LABS: Scleroderma Antibody (Scl-70) 1 AU/mL (0-40)
[2023-12-06 17:53] LABS: Centromere Antibody 0 AU/mL (0-40); Jo-1 Antibodies 1 AU/mL (0-40); SSA 52 (Ro)(ENA) Ab, IgG 2 AU/mL (0-40); SSA 60 (Ro)(ENA) Ab, IgG 0 AU/mL (0-40); SSB (La)(ENA) Ab, IgG 0 AU/mL (0-40)
[2023-12-06 18:51] LABS: Glucose - Point of Care 91 mg/dl (70-99)
--- NOTE | 2023-12-06 20:30 | PTCARENOTE ---
Rec'd pt resting in bed, denies pain, flat affect, depressed, DE LUNA weakly, SR w/ 1' AV block, weak distal pulses, skin warm/dry,sat on hi flow 50 ;iters/ 60% was 89- incr to 50 liters/ 75% by resp therapist, sat incr to 92%, lungs decr in bases &
fine bibas crackles, + orthopnea, TRISTAN, enc to use IS- reaches 1000; hypo bowel sounds,no bm, abdround, full, nontender, no n/v, poor appetite, oliguric, rec PD q4h exch , alt 2.5 & 4.25%
[2023-12-06 20:44] LABS: Glucose - Point of Care 214 mg/dl (70-99)
[2023-12-06 21:40] LABS: Glucose - Point of Care 194 mg/dl (70-99)
--- NOTE | 2023-12-06 22:00 | PTCARENOTE ---
Xanax 0.5 mg po given for anx
[2023-12-06 22:42] LABS: Glucose - Point of Care 137 mg/dl (70-99)
--- NOTE | 2023-12-06 23:27 | PTCARENOTE ---
sys reviewed, lungs unch, oxycodone 10mg po given for back pain, CHG bath done, linens changed
[2023-12-07] VITALS (26 sets, daily range): BP systolic 92–166; BP diastolic 24–98; O2SAT 91; BMI 28.3
[2023-12-07 00:42] LABS: Glucose - Point of Care 94 mg/dl (70-99)
[2023-12-07 02:40] LABS: Glucose - Point of Care 158 mg/dl (70-99)
[2023-12-07 03:29] LABS: Hematocrit 31.5 % (39.0-52.0); Hemoglobin 10.9 g/dL (13.0-18.0); Mean Corp Hgb Conc. 34.6 g/dL (33.0-37.0); Mean Corpuscular Hgb 29.8 pg (27.0-31.0); Mean Corpuscular Volume 86.1 fL (80.0-94.0); Mean Platelet Volume 11.5 fL (7.4-10.4); Platelet Count 130 10^3/uL (130-400); Red Blood Cell Count 3.66 10^6/uL (4.70-6.10); Red Cell Dist. Width 16.8 % (11.5-14.5); White Blood Cell Count 16.1 10^3/uL (4.8-10.8)
--- NOTE | 2023-12-07 03:46 | PTCARENOTE ---
sys reviewed, unable to sleep, watching TV
[2023-12-07 03:52] LABS: INR 2.93
[2023-12-07 04:16] LABS: ALT (SGPT) 457 U/L (0-50); AST (SGOT) 131 U/L (17-59); Albumin 2.5 g/dl (3.5-5.0); Alkaline Phosphatase 198 U/L (38-126); Blood Urea Nitrogen 89 mg/dl (9-20); Calcium 7.8 mg/dl (8.4-10.2); Carbon Dioxide 28 mmol/L (22-30); Chloride 88 mmol/L (98-107); Direct Bilirubin 0.6 mg/dl (0.0-0.4); Estimated Creatinine Clearance 11 ml/min; Glucose 128 mg/dl (70-99); Potassium 4.2 mmol/L (3.5-5.1); Sodium 128 mmol/L (135-145); Total Bilirubin 0.6 mg/dl (0.2-1.3); eGFR 8.89
[2023-12-07 04:39] LABS: Glucose - Point of Care 109 mg/dl (70-99)
[2023-12-07] MEDS: SOLU-MEDROL PF 60 MG IV ×4 (05:33→23:31)
[2023-12-07 06:42] LABS: Glucose - Point of Care 141 mg/dl (70-99)
[2023-12-07] MEDS: PROTONIX 40 MG PO (07:41)
--- NOTE | 2023-12-07 07:41 | W.PN.INTV ---
Today's Communication / Plan
Recommendations
O2
CS
PD
Buspirone
Assessment
-
Assessment:
Mr Blair Thakkar is a 63/M adm 11-12 with confusion and EV edema. Known h/o CKD on PD, recently not able to do PD himself due to confusion, did. At ER, confused, hypoxemic. Seen by Neurology, no acute findings on CT and MRI brain. Seen by
Renal, resumed PD soon after adm.� VTach episode on night 11-16, received IV Mag with resolution. VTach returned on early afternoon 11-17, started Mag IV infusion, MS continued deteriorating, became unresponsive, VTach deteriorated to TDP, then
VFib, shock at 360K x1, developed PEA, received 3 doses epinephrine, total CPR time about 3 min with ROSC, intubated by anesthesia with no reported difficulty
Impression:
Acute hypoxemic respiratory failure: Bilateral infiltrates with thick GGO seen on CTA chest from 11/23/2023 --> repeat CT chest on 12/03 shows persistent albeit improved bilateral infiltrates with improved confluent GGO
Differential diagnosis includes pulmonary edema/inflammatory pneumonitis/less likely infectious --> based on his imaging and him being net negative, this is inflammatory pneumonitis (idiopathic at this point)
Hx of bilateral ground-glass opacities on former CT imaging from April 2021
Cardiac arrest �11-17-23
VTach, TDP, VFib, PEA
Low normal serum Mg on 11-16 and given IV Mag on 11-16 and also 11-17 (Mg was running at time of arrest)
Transaminitis - could be reaction from the high-dose steroids
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
CKD on PD
CAD s/p CABG
PVD s/p bilateral EV stenting
Emergent stenting RLE Jun 2021 ()
DM
HTN
HLD
Depression
Obesity

Plan:
11/21/2023: Transferred back to the ICU with increased work of breathing necessitating�noninvasive mechanical ventilation.�
Chest x-ray at that time with ? mild pulmonary edema bilaterally.
CT chest 11/23/2023: Extensive bilateral groundglass opacities with subsegmental bibasilar atelectasis.� No pulmonary embolism.
CT Chest 12/03/2023: Diffuse interstitial and groundglass opacities throughout both lungs with some improved aeration compared to the chest CT from 11/23/2023.
-
Acute Hypoxemic Respiratory Failure: worsening bilateral infiltrates on CXR from 11/28/2023 - suspect an inflammatory pneumonitis; cannot rule out aspiration with subsequent acute lung injury.� Patient has never been on amiodarone. Bilateral
interstitial/groundglass opacities improved based on CT chest (12/03/2023)
Hypoventilation is also contributing to his hypoxia as he is barely pulling 1L on the incentive spirometer, encouraged to improve adherence to IS
No antibiotics were given-no evidence for infection.
Right heart catheterization 11/24/2023: Not consistent with volume overload.
Responding to steroids -->�was on solumedrol 40mg IV q6hr (after being on prednisone 40mg daily x 2 days prior on 11/27 + 11/28, and before that was on decadron 4mg IV q8hr from 11/24 - 11/26)- considering he remains hypoxic with inability to reduce
FiO2 lower than 60%, raised steroids to MP 125mg IV q6hr on 12/02; adjust as pt improves --> reduced to 60mg IV q6hr starting 12/06, will proceed to very slow taper over a period of weeks
Trend CRP, BNP and procal --> CRP continues to downtrend. BNP remained >27k since 11-12, barely down to 24,700 on 12-06
PCT declining on 12-06 (0.40) as c/w 1.36 (11-24): but CKD on PD
Encourage incentive spirometer and up OOB as able
Of note, he has had bilateral groundglass opacities on his chest on former CT imaging as far back as April 2021.� He denied any personal history of connective tissue disease.� Checking CTD panel including: CCP-Ab (normal), Scl-70, centromere, ADELAIDA
(negative), CRP, ESR (^), Jeanne-1 (negative), SS-A/B (negative); RF (negative). - of note, labs were checked prior to raising his steroid dose
Based on CT Chest 12-03, there is improvement in bilateral opacities, now with persistent b/l opacities but his confluent GGO has reduced, films show now fibrosis and traction bronchiectasis
Considered bronchoscopy with BAL, however given his high FiO2 requirements and physical deconditioning, the practicality of obtaining a BAL may not be possible without high risk of him becoming intubated.
CXR 12-06: portable, mild interim improvement of basilar GGOs
continue physical therapy/Occupational Therapy - may need NRB over high flow in order to work with PT/OT
Speech evaluation noted: No overt aspiration.� Continue with aspiration precautions.
-
Monitor BG with goal BG 140-180mg/dL;�glycemic protocol with insulin drip restarted due to persistent hyperglycemia. Diabetic FISHERIES BIOLOGIST on board
Currently requiring up to 7U novolog per h
Continue to trend LFTs
-
D/c dronabinol 12-06, and started buspirone for anxiety and depression
VTach evening 11-16-no further episodes.
Low normal Mg, replaced IV at time of event
No gross e-lyte abnormalities at time of VTach, TDP, VFib/PEA
Status post cardiac arrest 11-17
Required intubation-CPR, 3 epi doses, shock x1 at 360. CPR for about 3 min till ROSC
Extubated 11/18/2023.
Continue to monitor electrolytes with goal K>4, Mg>2
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
Right heart catheterization 11/24/2023: Not consistent with volume overload.
Cardiology has followed till 12-02, then will follow at a distance for eventual decision re ICD based on assessment of QT and LHC
-
Nephrology continues to follow.
Continue to maintain negative fluid balance via peritoneal dialysis.
-
Antibiotics discontinued 11/19/2023.� No evidence for infection.
Restarted on cefepime 11/21/2023: � No evidence for infection.� Discontinued antibiotics.
All cultures were negative.
-
Hyperglycemia: Steroid-induced
Goal BG 140-180 mg/dL
ISS AC
Glycemic protocol with insulin drip restarted on 12/03 due to hyperglycemia --> wean off as his steroid dose decreases, and then resume basal-bolus insulin dosing
Transaminitis and AP rising since 12-03
Abd US 12-06 with perihepatic ascites likely related to PD, s/p cholecystectomy, pancreas not visualized
On ezetimibe which could be causing the lab abnormalities, will d/c for now
-
On chronic coumadin for h/o PVD s/p stents - goal INR: 2-3
Daily INR and adjust Coumadin as needed
Monitor for bleeding
-
He was downgraded to IMU on 11/27/2023, however he is now upgraded back to ICU level of care given his high FiO2 requirements as well as hyperglycemia requiring insulin gtt.
D/w MDT
Prognosis remains guarded
Critical care time: 35 min

Diagnostic tests:
CT Chest w/o contrast 12-03-2023:
1. Diffuse interstitial and groundglass opacities throughout both lungs with some improved aeration compared to the chest CT from 11/23/2023.
2. Moderate upper abdominal ascites.
CTA Chest 11-23-2023:
1). There is no pulmonary embolism
2).There is diffuse groundglass airspace disease throughout both lungs, most prominent at the lung bases without associated pleural effusions or overfilling of the pulmonary vasculature suggesting that this diffuse interstitial pneumonia such as may
be seen with COVID 19.
3). Moderate-large volume abdominal ascites
4). Postoperative changes with wire sternal sutures and mediastinal clips
CXR 12-05-2023: Persistent generalized diffuse bilateral interstitial and groundglass opacity. Slightly diminished degree of inspiration compared to prior examination, which may be contributing to slight increase crowding of parenchymal markings at
the lung bases. No pneumothorax. The cardiomediastinal margins are stable.
CXR 11-30-2023:� Compared to CXR from 11/28/2023; Moderate diffuse interstitial pneumonia, not significantly changed when compared with prior study
CXR 11-17-23 pm: interim intubation and GT. pulm vasc and parenchymal congestion.
CXR - and 08-31 AM, portable, improved pulm vasc and parenchymal congestion, sternotomy
TTE 11-17-23 (post cardiac arrest)
CONCLUSIONS
�Limited study
�Normal left ventricular chamber size. Mild concentric left ventricular
�hypertrophy. Normal left ventricular systolic function. Left ventricular
�ejection fraction is 50% by Grimaldo' s method.� Diastology not assessed.
�Since echocardiogram November 15, 2023 which was reviewed, there is no
�significant change.
TTE 11-15-23
CONCLUSIONS
�Normal left ventricular chamber size. Normal left ventricular systolic
�function. Normal regional wall motion. Mild concentric left ventricular
�hypertrophy. Left ventricular ejection fraction is 55-60% by visual estimate.
�Diastolic function indeterminate due to atrial fibrillation.
�Mildly thickened mitral valve leaflets. Mitral annular calcification. Mitral
�valve opens normally. Trace mitral regurgitation.
Subjective Dataa
Subjective Data
Date of Service:
Date of Service: December 07, 2023
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
Subjective:
No major events reported
Continues on HFNC
Review of Systems
General: Fever (n), Sweats (n), Chills and Satisfactory Appetite (n)
Cardiopulmonary: Dyspnea, Cough, Wheezing and Chest Pain (n)
GI: Abdominal Pain (n), Nausea and Vomiting
Neuro: Weakness
Objective Data
Data Reviewed
Vital Signs / I&O / Oxygen:
Vital Signs
Temp Pulse Resp BP Pulse Ox
97.7 F 62 14 136/73 97
12/07/23 03:48 12/07/23 06:00 12/07/23 06:00 12/07/23 06:00 12/07/23 03:49
Intake and Output
12/06/23 12/07/23 12/08/23
06:59 06:59 06:59
Intake Total 1453.9 / 1460.9 1135.0 / 1135.0
Output Total 850 / 850 350 / 350
Balance 603.9 / 610.9 785.0 / 785.0
SaO2 [NIV (Non Invasive 95
Ventilation)]
SaO2 [CPAP/PSV] 95
SaO2 [A/C] 96
SaO2 97
Nasal Cannula flow liters per 50
minute
Physical Exam
General: Respiratory Distress (with activity), Comfortable and Chills (negative)
HEENT: Normocephalic, Anicteric and Moist Mucous Membranes
Cardiovascular: S1-S2, Murmur (n), Peripheral Edema (n) and Other (normal rate)
Respiratory: Clear (Anteriorly), Wheeze (negative), Crackles (Posterior bibasilar), Rhonchi (negative), Non-Labored Respirations and Stridor (n)
GI: Soft, Non Distended and Non Tender
Neurology: Awake, Oriented and No Motor Deficits
Skin: Warm and Dry
Labs/Micro/Reports
Lab Data
12/07/23 03:15
12/07/23 03:15
Laboratory Results
12/07/23
03:15
PT 31.0 H
INR 2.93
[2023-12-07] MEDS: LOPRESSOR 12.5 MG PO ×2 (07:42→20:04)
[2023-12-07] MEDS: MAGNESIUM OXIDE 500 MG PO (07:42)
[2023-12-07] MEDS: LOW STRENGTH ASPIRIN 81 MG PO (07:44)
[2023-12-07] MEDS: MIRALAX 17 GRAMS PO (07:44)
--- NOTE | 2023-12-07 08:00 | PTCARENOTE ---
Received patient from material damage appraiser. Patient is AAOx3, did not sleepy much last night, alert, seems anxious. States he is anxious about getting OOB to chair. Patient remains on high flow, 50L75%, fine crackles throughout. Patient is sinus rhythm
in 60s on monitor. Generalized trace anasarca. Patient is tolerating PD, due to drain at 0940. Patient has minimal appetite, denies constipation although has not had BM in 10 days. Started patient on Senokot-S. patient is oliguric. Tubi parks and recreation worker
on bilateral lower extremities. Insulin gtt infusing into left midline. Will review orders, patient able to make needs known.
[2023-12-07] MEDS: SENOKOT-S 1 TABLET PO ×2 (08:07→20:04)
[2023-12-07] MEDS: NOVOLOG FLEXPEN 4 UNITS SC (08:33)
[2023-12-07 08:47] LABS: Glucose - Point of Care 106 mg/dl (70-99)
--- NOTE | 2023-12-07 09:06 | W.PN.HOSP.TC ---
Today's Communication/Plan
-
high dose steroids, insulin gtt, gi consult, psych consult
Assessment / Plan
Assessment / Plan
Gen: NAD, awake and alert, well-developed, well-nourished
Eyes: Continues to remain EOMI, PERRLA, no scleral icterus.
Neck: supple.
CV: Continues to remain RRR, +S1/S2, no m/r/g.
Resp: Rales in the left chest anteriorly
Abd: +BS, soft, NT, ND
Skin: No rashes.
Neuro: CN 2-12 intact, non-focal.
Psych: Normal mood and affect.
CT chest 11/23/23:
1). There is no pulmonary embolism
2).There is diffuse groundglass airspace disease throughout both lungs, most prominent at the lung bases without associated pleural effusions or overfilling of the pulmonary vasculature suggesting that this diffuse interstitial pneumonia such as may
be seen with COVID 19.
3). Moderate-large volume abdominal ascites
4). Postoperative changes with wire sternal sutures and mediastinal clips
CXR 11/26/23: Hazy patchy bibasilar opacification increased in comparison to most recent prior chest radiograph, possibly representing pneumonitis.
CXR 11/28/23: Worsening diffuse interstitial pneumonia.
CT chest 12/03/23:
1. Diffuse interstitial and groundglass opacities throughout both lungs with some improved aeration compared to the chest CT from 11/23/2023.
2. Moderate upper abdominal ascites.
A/P:
Acute hypoxic respiratory failure:
-After his prolonged hospital course and based on the evidence we have at hand, it appears etiology is acute lung injury due to acute interstitial pneumonia/inflammatory pneumonitis per pulm
-Was on IV dexamethasone, then transitioned to prednisone, now on Solumedrol now 60 mg IV Q6H
-was on insulin drip for steroid-induced hyperglycemia, then transitioned to SC insulin, now back on insulin gtt.
-was weaned down to mid flow 8L O2 on 11/27/23 from High Flow Oxygen prior. Now on 50L/75% highflow.
-No need for antibiotics
-RF NEG, ESR 80, CRP 10.8
-rest of CTD panel pending (CCP-Ab, Scl-70, centromere, ADELAIDA, CRP, Jeanne-1 and SS-A + SS-B)
ESRD on PD:
-Continue PD per nephrology. Nephrology following.
-Volume effectively coming off but would not be feasible upon discharge for either home (prob can not do it by himself) or SNF (would not be accepted).
-Would likely require conversion to hemodialysis but will defer to nephrology for timing
Cardiopulmonary arrest/CAD:
-VT/V Fib arrest on 11/17/23 with ROSC
-V. tach-->TDP-->V Fib-->PEA. CPR abt 3 min and Epinephrine x3. V Fib s/p shock 360J x1--> ROSC achieved.
-On aspirin, beta-blockers increased metoprolol 25 mg twice a day, on statin atorvastatin 40 mg p.o. nightly.
-monitor QTc as appropiate
-Right heart cath showed PCWP of 13 on 11/24/23
-Transthoracic echocardiogram--> EF 50%, mild concentric left ventricular hypertrophy, no significant changes from prior echo.
-Cardiology following
-Known history of CAD with CABG back in 1995.
-Plan for left heart cardiac cath once respiratory status stable (possible AICD)
Peripheral vascular disease:
-cont ASA/statin.
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
-was on Heparin drip, now transitioned to warfarin on 11/25/23 (no bridge was needed). INR now therapeutic. Check INR tomorrow.
Acute metabolic encephalopathy:
-was multifactorial in nature with uremia and hypoxemia but now back to his baseline.
-Head CT with impression of no acute intracranial abnormality but some chronic changes noted.
-MRI brain negative for acute stroke or pathology.
Elevated LFT
-Possible ischemic/shock in nature but usually in the thousands but could be trending down
-seen US abd
-GI consult today
Depression/Anxiety
-zoloft had been d/c prior due qtc
-xanax and buspar
-psych consult in light of difficult situation and choices- patient agrees to discuss with psych.
Other problems:
Essential hypertension: cont BB
Atrial tachycardia: Continue BB
Chronic diastolic CHF: cont BB and maintenance of euvolemia via dialysis
Hypokalemia, resolved
Hypomagnesemia: cont PO Mg
Hyperlipidemia: cont Zetia, holding statins due to increased lft
FULL/coumadin
Total time spent on today's encounter was 52 minutes which included time spent in counseling the patient/family regarding diagnosis and treatment plan as listed above, goals of care, and symptom management. Case was discussed with nursing staff,
specialists, and care coordinators/case management. All labs and imaging personally reviewed by me. Remainder the time spent in detailed review of previous records, lab data, imaging, and other medical provider documentation.
Anticipated Discharge: > 48 hours
Subjective/Interval History
-
Date of Service: December 07, 2023
Patient feels depressed and very anxious, he thinks he is having 'panic attacks only thinking about moving around'. Still sob, on high amount of oxygen.
Objective Data
-
Labs:
Laboratory Results
12/07/23
03:15
WBC 16.1 H
Hgb 10.9 L
Hct 31.5 L
Plt Count 130
PT 31.0 H
INR 2.93
Sodium 128 L
Potassium 4.2
Chloride 88 L
Carbon Dioxide 28
BUN 89 H
Creatinine 6.5 H*
Glucose 128 H
Calcium 7.8 L
Total Bilirubin 0.6
AST 131 H
ALT 457 H
Alkaline Phosphatase 198 H
Vital Signs:
Vital Signs
Temp Pulse Resp BP Pulse Ox
97.5 F 62 14 121/71 90
12/07/23 08:08 12/07/23 08:00 12/07/23 08:00 12/07/23 08:00 12/07/23 08:09
I&O
12/06/23 12/07/23 12/08/23
06:59 06:59 06:59
Intake Total 1453.9 / 1460.9 1135.0 / 1139.5 249.0 / 249.0
Output Total 850 / 850 350 / 350
Balance 603.9 / 610.9 785.0 / 789.5 249.0 / 249.0
Review of Systems
-
All other systems: Reviewed and negative
--- NOTE | 2023-12-07 09:44 | W.PN.NEPH.PH ---
Today's Communication / Plan
-
PD ordered
Assessment/Plan
-
Assessment
-ESRD on PD
-volume overload
-CHF
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
-PAD
-HTN
-edema
-CAD/CABG
-DM2
-Hyponatremia
-In-hospital cardiac arrest 11/17/23
-VT arrest
s/p shock x1 and Epi x1 11/17/23
Plan
-PD ordered, alternate 2.5%and 4.25% 2L q4h exchanges
-follow LFTs
-likely will need placement in future, and will need conversion to HD for that as few or no facilities will do PD
-
-
Date of Service: December 07, 2023
CC / HPI / ROS
-
Chief Complaint:
ESRD
History of Present Illness:
PD in progress
s/p code 9 with VT 11/17/23
on high flow O2 and remains on IV Decadron
BP stable
LFTs slightly better
Review of Systems:
no fever
no CP
Weights stable
Labs
-
Labs:
WBC 16.1 10^3/uL (4.8-10.8) H 12/07/23 03:15
RBC 3.66 10^6/uL (4.70-6.10) L 12/07/23 03:15
Hgb 10.9 g/dL (13.0-18.0) L 12/07/23 03:15
Hct 31.5 % (39.0-52.0) L 12/07/23 03:15
Plt Count 130 10^3/uL (130-400) 12/07/23 03:15
Sodium 128 mmol/L (135-145) L 12/07/23 03:15
Potassium 4.2 mmol/L (3.5-5.1) 12/07/23 03:15
Chloride 88 mmol/L (98-107) L 12/07/23 03:15
Carbon Dioxide 28 mmol/L (22-30) 12/07/23 03:15
BUN 89 mg/dl (9-20) H 12/07/23 03:15
Creatinine 6.5 mg/dL (0.7-1.3) H* 12/07/23 03:15
eGFR 8.89 12/07/23 03:15
Glucose 128 mg/dl (70-99) H 12/07/23 03:15
Calcium 7.8 mg/dl (8.4-10.2) L 12/07/23 03:15
Phosphorus 5.3 mg/dl (2.5-4.5) H 12/06/23 04:16
Yuw-T-Baavvqoonlu Pept 98751 pg/ml 12/06/23 04:16
Albumin 2.5 g/dl (3.5-5.0) L 12/07/23 03:15
Physical Exam
-
Vital Signs:
Vital Signs
Temp Pulse Resp BP Pulse Ox
97.5 F 62 14 121/71 90
12/07/23 08:08 12/07/23 08:00 12/07/23 08:00 12/07/23 08:00 12/07/23 08:09
Cardiovascular:: Regular rate and rhythm
Respiratory:: Bilateral: Coarse
Lung Excursion:: Normal
Abdomen:: Nontender and Soft
Bowel Sounds:: Normal
Extremity Edema:: None: Bilateral:
[2023-12-07 10:41] LABS: Glucose - Point of Care 106 mg/dl (70-99)
[2023-12-07] MEDS: NOVOLOG FLEXPEN SC ×2 (11:09→16:28)
--- NOTE | 2023-12-07 11:09 | PTCARENOTE ---
Offered to help patient get OOB. Patient wants to wait till later this afternoon. Hospitalist aware, consult made to psychiatry for depression/anxiety.
--- NOTE | 2023-12-07 11:13 | CON.GI ---
Addendum entered and electronically signed by Anastacia Dobbins MD 12/07/23 15:55:
I saw and examined the patient.
The [employer] or PA's note was reviewed and I agree with the note.
Comment: 63-year-old male with history of peripheral vascular disease on Coumadin, CAD status post CABG, end-stage renal disease on hemodialysis, admitted for CHF exacerbation with volume overload, during the hospital visit, had V. tach, requiring
epi, shock and intubation and pressors. Currently on high O2 requirements but GI called in for elevated LFTs. On admission 11/12/2023, LFTs including transaminases, alkaline phosphatase was in normal range, LFTs checked 12/03/2023 showed elevated
transaminases and alkaline phosphatase, currently trending down slightly. Abdominal ultrasound showing normal liver without any biliary ductal dilation. He is status postcholecystectomy. Denies any history of significant alcohol use. No history
of jaundice, hepatitis, liver disease or elevation of LFTs that patient is aware of. No family history of liver disease.
-Elevated LFTs, likely related to recent V. tach with possible shock liver like picture. No recent new medications that could cause elevation in the LFTs as atorvastatin is not new.
Abdominal ultrasound unremarkable.
No abdominal pain
Continue to monitor LFTs, if trending down, no further workup. If continue to be elevated, will do hepatitis serologies while in the hospital and then outpatient follow-up.
Agree with MiraLAX for constipation.
Will follow for now
Original Note:
Consultation
-
Date/Time Consultation Requested: 12/07/23 0900
Date/Time Consultation Performed: 12/07/23 1115
Requesting Provider: Rex Yanez MD
Performing Provider: AILEEN Villalta, Anastacia Dobbins MD
Reason for Consultation: increased LFT's
Medical History
Chief Complaint / HPI
Chief Complaint: increased LFT's
History of Present Illness:
Pt is a 63yo with hx PAD with prior bypass stenting on chronic Coumadin on admission, CAD with prior CABG, ESRD on PD, DM with admission 11/12 for volume overload and CHF. On 11/17 noted with V tach arrest with transfer to ICU with epi, shock and
intubation with need for pressors. He slowly improved but several days later noted with hypoxemia with increased O2 requirement with right heart cath completed and plan for eventual left cath. Now asked to see for increased LFT's. In review
with labs some chronic alk phos elevation mid 150's. On admission11/12 bili 0.8, AST 54, ALT 45 and alk phos 93. LFT's not checked for days then noted with bili 0.5, AST 206, ALT 413, alk phos 201 on 12/03 then bili 0.6, AST 131, ALT 457, alk phos 198
on 12/07.
12/06 US abdomen with perihepatic ascites related to PD no abnormality of liver. s/p carlitos with CBD 7 mm pancreas not seen. Pt denies hx liver issues in past. Pt unsure about medication changes.
Pt denies dysphagia, GERD, nausea, vomiting, abdominal pain, diarrhea, or bleeding. + constipation on admission on Miralax and some decrease appetite.
Past Medical History
Past Medical History: GERD, HTN, Hypercholesterolemia, NIDDM, Renal Failure (ESRD on chronic PD), Psychiatric (depression) and Other (PVD/PAD with warfarin use with prior vascular stenting, angioplasty- fem pop)
Past Surgical History: Cardiac (CABG 1995), Cholecystectomy and Other (vascular stenting, bypass, )
Social History
Tobacco: Non-Smoker
Alcohol: None
Drug: None
Personal:
Living: With Family
Employment: Retired
Family History
Family History: Other (no family hx liver issues )
Allergies / Home Medications
Allergy/AdvReac Type Severity Reaction Status Date / Time
No Known Allergies Allergy Verified 10/15/23 11:53
Medication Instructions Recorded
atorvastatin 40 mg tablet 40 mg PO HS High Cholesterol 06/12/21
cilostazol 100 mg tablet 100 mg PO BID Blood Clot 06/12/21
Prevention/Tx
ergocalciferol (vitamin D2) 1,250 50,000 units PO PRESLEY Supplement 06/12/21
mcg (50,000 unit) capsule
ezetimibe 10 mg tablet 10 mg PO DAILY High Cholesterol 06/12/21
pantoprazole 40 mg tablet,delayed 40 mg PO DAILY Gastrointestinal 06/12/21
release Issue
sertraline 50 mg tablet 100 mg PO DAILY Mental 06/12/21
Health/Anxiety
acetaminophen 325 mg tablet 650 mg PO DAILYPRN PRN mild pain 10/15/23
(Tylenol)
amlodipine 5 mg tablet 5 mg PO BID Blood Pressure 10/15/23
bisoprolol fumarate 5 mg tablet 5 mg PO BID Blood Pressure 10/15/23
calcitriol 0.25 mcg capsule 0.25 mcg PO MOWEFR Supplement 10/15/23
calcium acetate 668 mg (169 mg 668 mg PO MEALS Supplement 10/15/23
calcium) tablet
gabapentin 100 mg capsule 100 mg PO BIDPRN PRN nerve pain 10/15/23
insulin aspart U-100 100 unit/mL 28 unit SC BID Diabetes 10/15/23
(3 mL) subcutaneous pen
insulin glargine 100 unit/mL (3 60 unit SC DAILY Diabetes 10/15/23
mL) subcutaneous pen (Basaglar
KwikPen U-100 Insulin)
magnesium oxide 400 mg PO BID Supplement 10/15/23
melatonin 3 mg tablet 3 mg PO HSPRN PRN sleep 10/15/23
oxycodone-acetaminophen 5 mg-325 1 tab PO DAILYPRN PRN severe pain 10/15/23
mg tablet
potassium chloride 10 mEq 10 meq PO HS Electrolyte Repletion 10/15/23
tablet,extended release
warfarin 4 mg tablet 4 mg PO MOTUWETHFRSA@1800 Blood 10/15/23
Clot Prevention/Tx
aspirin 81 mg tablet,delayed 81 mg PO DAILY Blood Clot 11/12/23
release Prevention/Tx
lorazepam 1 mg tablet 1 mg PO DAILY PRN anxiety 11/12/23
Review of Systems
-
History Source: Patient
Constitutional: Reports Weight Loss (since admission with diuresis )
EENT: Reports No Symptoms
Respiratory: Reports No Symptoms
Cardiac: Reports No Symptoms
Abdomen/GI: Reports Constipated
: Reports Other (anuric with PD)
Musculoskeletal: Reports No Symptoms
Neurological: Reports Weakness
Endocrine: Reports No Symptoms
Hematologic/Lymphatic: Reports No Symptoms
Vital Signs
Temp Pulse Resp BP Pulse Ox
97.5 F 63 17 127/65 90
12/07/23 08:08 12/07/23 09:00 12/07/23 09:00 12/07/23 09:00 12/07/23 08:09
Physical Exam
Exam
General: Other (deconditioned appearance )
HEENT: Normocephalic and Anicteric
Respiratory: Other (decreased bases remains on high flow )
Cardiac: Regular Rhythm
GI: Soft, Non Tender and Non Distended
Musculoskeletal: No Clubbing and No Cyanosis
Skin: Warm and Dry
Neuro: Awake, Alert and AO x 3
Psych: Calm
Results
WBC 16.1 10^3/uL (4.8-10.8) H 12/07/23 03:15
Hgb 10.9 g/dL (13.0-18.0) L 12/07/23 03:15
Hct 31.5 % (39.0-52.0) L 12/07/23 03:15
MCV 86.1 fL (80.0-94.0) 12/07/23 03:15
Plt Count 130 10^3/uL (130-400) 12/07/23 03:15
Absolute Neuts (auto) 10.9 10^3/uL (1.4-6.5) H 11/27/23 06:13
PT 31.0 Sec (11.4-14.6) H 12/07/23 03:15
INR 2.93 12/07/23 03:15
APTT 80.4 Sec (23.4-35.0) H 11/28/23 03:58
Sodium 128 mmol/L (135-145) L 12/07/23 03:15
Potassium 4.2 mmol/L (3.5-5.1) 12/07/23 03:15
Chloride 88 mmol/L (98-107) L 12/07/23 03:15
Carbon Dioxide 28 mmol/L (22-30) 12/07/23 03:15
BUN 89 mg/dl (9-20) H 12/07/23 03:15
Creatinine 6.5 mg/dL (0.7-1.3) H* 12/07/23 03:15
Calcium 7.8 mg/dl (8.4-10.2) L 12/07/23 03:15
Total Bilirubin 0.6 mg/dl (0.2-1.3) 12/07/23 03:15
AST 131 U/L (17-59) H 12/07/23 03:15
ALT 457 U/L (0-50) H 12/07/23 03:15
Alkaline Phosphatase 198 U/L (38-126) H 12/07/23 03:15
Diagnostic Image Results:
12/06 US abdomen
1. Perihepatic ascites, which may be related to peritoneal dialysis.
2. No sonographic abnormality demonstrated within the liver.
3. Status post cholecystectomy. Common bile duct measures 7 mm in diameter, likely within normal limits following cholecystectomy.
4. Pancreas was not visualized due to overlying bowel gas.
Prior GI Procedures:
EGD: at [facility] in past
Colonoscopy: at [facility] in past
Assessment / Plan
-
Pt is a 63yo with hx PAD with prior bypass stenting on chronic Coumadin on admission, CAD with prior CABG, ESRD on PD, DM with admission 11/12 for volume overload and CHF. On 11/17 noted with V tach arrest with transfer to ICU with epi, shock and
intubation with need for pressors. He slowly improved but several days later noted with hypoxemia with increased O2 requirement with right heart cath completed and plan for eventual left cath. Now asked to see for increased LFT's. In review
with labs some chronic alk phos elevation mid 150's. On admission11/12 bili 0.8, AST 54, ALT 45 and alk phos 93. LFT's not checked for days then noted with bili 0.5, AST 206, ALT 413, alk phos 201 on 12/03 then bili 0.6, AST 131, ALT 457, alk phos 198
on 12/07.
12/06 US abdomen with perihepatic ascites related to PD no abnormality of liver. s/p carlitos with CBD 7 mm pancreas not seen. Pt denies hx liver issues in past. Pt unsure about medication changes.
-increased LFT's with some chronic mild alk phos elevation and new AST/ALT elevation
-concern for CHF on admission
-VT arrest 11/17/23
-continued hypoxemia
-anemia
-hyponatremia
-constipation
other medical problems:
-PAD on Warfarin
-ESRD on PD
-hypertension
PLAN:
etiology of elevated LFT's with likely some chronic Alk phos elevation with level 150-160 in 2020 and 2022 but rise of AST/ALT may be down trend from VT arrest 11/17 (hypotension/shock liver) as no LFT's checked post code vs hepatic congestion,
medication vs other
cont to trend LFT''s
US as noted with mild perihepatic ascites with hx PD and stable liver findings
check hepatitis panel
trend hbg with anemia
cont miralax and senna daily with constipation
-
-
Thank you for consultation and allowing me to participate in the patient's care. Please call the simulation tech GI physician during the after hours with any questions or concerns.
--- NOTE | 2023-12-07 11:44 | PN.DE.MGMTRT ---
Insulin Management
- -
11/18/2023 Diabetes Management Consult
Admitted 11/12 for R foot wound, confusion, SOB, swelling. PMH renal failure with peritoneal dialysis, HTN, PVD type 2 diabetes. Prior to admission chart reflects he was taking 60 units Basaglar daily with NovoLog 28 units BID. A1C 8.6%. Patient
had cardiac arrest 11/16 now intubated on mechanical ventilation and insulin infusion. Prior to this patient was receiving Lantus in AM with AC NovoLog at reduced doses.
Will continue glycemic protocol at this time. If patient is weaned off of ventilator will assess for readiness to transition to subcutaneous insulin.
11/19/2023: Diabetes Management F/U:
Pt extubated last evening. Doing well, sitting up in bed, offers no complaints.
Glucose trended up to 197, remains on glycemic protocol requiring 0.8-7 units of insulin/ hr while NPO.
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
Will transition off drip. Give Lantus 30 units NOW, turn drip off 1 hr after.
Start AC NovoLog 8 units and moderate corrective insulin with meals. Start 1800 ADA diet. Accucheks AC/HS
Will follow for further needed insulin adjustments. Plan of care d/w pt and Nurse.
11/22/2023: Diabetes Management F/U:
Pt transferred back to ICU for increased O2 requirements.
Currently NPO for R/LHC today. Premeal glucose trended up to 345 requiring 3-7 units of corrective insulin.
Will make no changes to regimen at this time, reassess after procedure and make necessary adjustments to insulin dose
11/23/2023 Diabetes Management Follow Up
Patient glucose controlled on current regimen, trended down to 79 @ HS. Will slightly decrease AM Lantus dose to 27 units to start Wednesday, 11/24.
Patient is NPO for procedure, will order one time dose of Lantus 15 units now.
11/24/2023 Diabetes Management Follow Up
Cardiac cath cancelled yesterday due to patient hypoxia. Dexamethasone 4 mg BID started last evening, glucose up to 460. Insulin administered. Fasting glucose 393. Glycemic protocol has been started. Will continue today and reassess in AM/
11/25/2023 Diabetes Management Follow up
Patient remains on steroids, glucose controlled on glycemic protocol requiring .8 to 10 units NovoLog per hour. He is eating meals and receiving supplemental insulin. Will continue glycemic protocol, assess in AM for readiness to transition to
subq regimen. I spoke with patient nurse.
11/26/2023: Diabetes Management F/U:
Patient remains on steroids- Dexa 4mg Q8hrs, continues on glycemic protocol, glucose range 89-219 requiring .5 to 12 units NovoLog per hour.
He is eating meals and receiving supplemental insulin.
Plan is to start steroid taper today, will continue glycemic protocol for now and reassess later today for readiness to transition to SQ insulin.
11/29/2023: Diabetes Management F/U:
Steroids were tapered down to Pred 40mg daily--> transitioned off CC glycemic protocol to SQ insulin over the weekend
Noted for worsening oxygenation--> resumed high dose IV steroids--> Hyperglycemia.
Pt resting in bed, offers no complaints. Glucose has remained elevated, FBG 301 this AM, premeal range 199 to 345, Dr. Lopez has increased his AC NovoLog dose to 8 units. Will increase Lantus to 35 units, 1st dose will be given tomorrow AM. Cont
current AC dose and corrective insulin with meals
Will closely follow and adjust insulin if necessary.
11/30/2023 Diabetes Management Follow up
Patient continues on steroids. Glucose remains elevated > 200. Lantus to increase to 35 units this AM. NovoLog increased yesterday to 12 units, continued to require corrective insulin. Will increase AC NovoLog to 15 units. Will follow
12/01/2023 Diabetes Management Follow up
Patient continues on steroids. Insulin increased yesterday, glucose remains > 200. Lunch standing dose of NovoLog not given, glucose 364. Additional NPH given. Patients home Basaglar reported at 60 units. Will increase AM Lantus to 40 units,
will increase AC NovoLog to 18 units.
12/02/2023 Diabetes Management Follow up
Patient steroids decreased to 40 mg. Insulin increased again yesterday. Glucose remains in 300's. Will again increase Lantus to 50 units in AM with NovoLog 22 units AC with corrective insulin.
12/03/2023: Diabetes Management F/U:
Steroids were tapered down to Pred 40mg daily--> Pt was noted for worsening oxygenation--> resumed high dose IV steroids--> Solumedrol 125mg Q6hrs
Now with Hyperglycemia. Insulin was adjusted yesterday with minor improvement in glucose levels. FBG pending, was 258 before breakfast.
Will start CC Glycemic protocol for optimal glucose control in setting of escalated IV Steroids. Discussed with pt, Nurse and ICU rounding team.
12/06/2023: Diabetes Management F/U:
Patient remains on IV steroids- Methylpred 60mg Q6hrs and on glycemic protocol, glucose range 76-178 requiring .8 to 7 units NovoLog per hour.
His appetite is poor but eating some meals and receiving supplemental insulin.
Will continue glycemic protocol, clinically not ready to transition to SQ insulin today. Will closely follow.
Discussed with pt, Nurse and ICU rounding team.
12/07/2023 Diabetes Management Follow up
Patient continues on steroids 60 mg IV Q6 hours. He is currently on the glycemic protocol requiring .7 to 7 units per hour. Will continue glycemic protocol. As IV steroids wean down will consider transition from protocol to subcutaneous insulin.
Diabetes History
- -
Type of Diabetes: 2 requiring insulin
Pre-Admission Diabetes Regimen
12/07/23
03:15
Creatinine 6.5 H*
Lab Results
Hemoglobin A1c 8.6 % (4.0-5.6) H 11/13/23 06:09
Insulin Pump Settings
IP Diabetes Regimen
12/06/23 12/06/23 12/06/23
12:33 14:30 16:42
Glucose
POC Glucose 147 H 91 137 H
12/06/23 12/06/23 12/06/23
18:36 20:33 21:29
Glucose
POC Glucose 91 214 H 194 H
12/06/23 12/07/23 12/07/23
22:30 00:30 02:29
Glucose
POC Glucose 137 H 94 158 H
12/07/23 12/07/23 12/07/23
03:15 04:27 06:30
Glucose 128 H
POC Glucose 109 H 141 H
12/07/23 12/07/23
08:31 10:29
Glucose
POC Glucose 106 H 106 H
Meal type: Dinner
Meal type: Breakfast
Amount consumed: 10%
Amount consumed: 100%
Patient Education
--- NOTE | 2023-12-07 11:45 | PTCARENOTE ---
Assisted patient x2 to chair at bedside. Patient was extremely anxious but encouraged. REquired NRB for oxygen recovery.
[2023-12-07] MEDS: ROXICODONE 5 MG PO (11:54)
[2023-12-07 12:42] LABS: Glucose - Point of Care 127 mg/dl (70-99)
--- NOTE | 2023-12-07 13:00 | PTCARENOTE ---
Patient tolerated a bit over an hour OOB, used NRB entire time. Was anxious but tolerated. became extremely fatigued.
--- NOTE | 2023-12-07 13:52 | CM ---
CM following re: discharge planning.
Discussed in rounds, reviewed pt's chart, met with pt. Per Rounds meeting, pt requires 50 L HFNC with FIO2 75% with NRB, tolerates only one hour out of bed, continue PD, continue supportive care. Planning discussion goals of care with pt and his
spouse.
PT and OT continue to recommend SNF level of care. Due to PD there is no option to receive PD at a SNF. [facility] denied a referral.
D/C plan: uncertain at this time, TBD and will depend on pt's progress.
CM will follow with discharge plan updates as hospitalization progresses
[2023-12-07] MEDS: DEXTROSE 50% SYRINGE 12.5 GRAMS IV (15:04)
--- NOTE | 2023-12-07 15:11 | CS.PSYCHR ---
Consult Summary - Psychiatry
-
Pt is 63 yo male with long hx of CAD, ESRD, admitted 11/12/23 with confusion, lower extremity edema, hypoxia, dx with sepsis, acute TME. Pt had cardiopulmonary arrest 11/17/23. Established med Zoloft 100 mg QD was stopped 11/18/23, due to concern for
SSRI worsening prolonged QTc. QTc remains prolonged (525)on most recent EKG 12/02/23. QTc was 486 on admission. Sodium has been low at 127; was 128 today. Pt is receiving Xanax 0.5 prn, avg 2 times per day. Pt was started on Buspar 2.5 mg BID
yesterday 12/06. Pt has been anxious about getting out of bed into chair, sitting up for first time today. Pt still requiring O2 mask due to O2 sat in low 80's.
PMH: CAD with CABG in his 30's, ESRD on peritoneal dialysis, Anasarca, hypertension, GERD, Diabetes mellitus type II, PAD, PVD, HLD
Psych Hx: anxiety, depression, was on Zoloft 100 mg QD upon admission- pt states more for anxiety.
SH: non-contributory; pt living with
MSE: pt alert, oriented, sitting up in chair, appears older than actual age. Able to answer questions on limited basis. Mood mild-to-mod dysphoric, affect appropriate. Somewhat anxious, no acute distress. No agitation, no signs of psychosis.
Insight appears intact
Imp: Unspecified Anxiety d/o, home med Sertraline stopped on 11/18 due to concern with prolonged QTc
Rec: agree with trial of Buspar, which will take a couple weeks for benefit, may need increased dose to at least 5 mg BID if tolerated
Only non-SSRI antidepressant alternative would be Wellbutrin SR/XL, which would not help and may worsen anxiety
Will follow
[2023-12-07 15:12] LABS: Glucose - Point of Care 67 mg/dl (70-99)
[2023-12-07 15:36] LABS: Glucose - Point of Care 206 mg/dl (70-99)
[2023-12-07] MEDS: NOVOLIN R INSULIN INFUSION 100 IV (16:33)
[2023-12-07 16:40] LABS: Glucose - Point of Care 245 mg/dl (70-99)
--- NOTE | 2023-12-07 16:44 | PTCARENOTE ---
Glycemic protocol now reinitiated. Will recheck blood sugar q1hr post hypoglycemic POC
[2023-12-07] MEDS: NOVOLOG FLEXPEN 2 UNITS SC (17:51)
[2023-12-07 17:55] LABS: Glucose - Point of Care 219 mg/dl (70-99)
[2023-12-07 18:43] LABS: Glucose - Point of Care 186 mg/dl (70-99)
[2023-12-07 19:38] LABS: Glucose - Point of Care 164 mg/dl (70-99)
--- NOTE | 2023-12-07 20:00 | PTCARENOTE ---
Rec'd pt reseting in bed, falt affect, denies pain, follows commands, SR w/ 1' av block, short burst atach, bp stable, weak distal pulses, skin warm/dry, O2 via hi flow 50 liters/ 70%, sat 94-97, lungs decr in bases, fine bibase crackles, enc to use
IS- reaches 750;+ tamayo, no cough, hypo bowel sounds, no bm, abd soft/round, no n/v, poor appetite, oliguric, alt 2.5 & 4.25 dialysate - q4hr pd exchanges
[2023-12-07 20:36] LABS: Glucose - Point of Care 146 mg/dl (70-99)
[2023-12-07 21:40] LABS: Glucose - Point of Care 135 mg/dl (70-99)
[2023-12-07] MEDS: XANAX 0.5 MG PO (22:27)
[2023-12-07 22:39] LABS: Glucose - Point of Care 93 mg/dl (70-99)
--- NOTE | 2023-12-07 22:44 | PTCARENOTE ---
Chg bath done, linens changed; Xanax 0.5 mg po given for anx
--- NOTE | 2023-12-07 23:34 | PTCARENOTE ---
sys reviewed, dozing on and off
[2023-12-07 23:39] LABS: Glucose - Point of Care 108 mg/dl (70-99)
[2023-12-08] VITALS (19 sets, daily range): BP systolic 117–150; BP diastolic 31–76; BMI 28.0
[2023-12-08 01:42] LABS: Glucose - Point of Care 122 mg/dl (70-99)
[2023-12-08 03:30] LABS: Glucose - Point of Care 149 mg/dl (70-99)
--- NOTE | 2023-12-08 04:04 | PTCARENOTE ---
sys reviewed, pt sleeping better this night than previous
[2023-12-08 04:10] LABS: % Basophils 0.1 % (0-2); % Eosinophils 0.1 % (0-6); % Immature Granulocytes 1.1 % (0-0.5); % Lymphocytes 1.8 % (20.5-51.1); % Monocytes 2.8 % (1.7-9.3); % Neutrophils 94.1 % (42.2-75.2); Absolute Immature Granulocytes 0.2 10^3/uL (0-0.05); Absolute Lymphocytes 0.3 10^3/uL (1.2-3.4); Absolute Monocytes 0.5 10^3/uL (0.1-0.6); Absolute Neutrophils 15.9 10^3/uL (1.4-6.5); Hematocrit 34.4 % (39.0-52.0); Hemoglobin 11.6 g/dL (13.0-18.0); Mean Corp Hgb Conc. 33.7 g/dL (33.0-37.0); Mean Corpuscular Volume 88.9 fL (80.0-94.0); Mean Platelet Volume 11.4 fL (7.4-10.4); Nucleated Red Blood Cells % 0.4 % (-); Platelet Count 106 10^3/uL (130-400); Red Blood Cell Count 3.87 10^6/uL (4.70-6.10); Red Cell Dist. Width 17.2 % (11.5-14.5); White Blood Cell Count 16.9 10^3/uL (4.8-10.8)
[2023-12-08] MEDS: ROXICODONE 10 MG PO ×2 (04:23→15:32)
--- NOTE | 2023-12-08 04:24 | PTCARENOTE ---
roxycodone 10 mg pogiven for back pain
[2023-12-08 04:36] LABS: PT 27.4 Sec (11.4-14.6)
[2023-12-08 04:50] LABS: ALT (SGPT) 405 U/L (0-50); AST (SGOT) 96 U/L (17-59); Albumin 2.5 g/dl (3.5-5.0); Alkaline Phosphatase 188 U/L (38-126); Blood Urea Nitrogen 87 mg/dl (9-20); Calcium 7.9 mg/dl (8.4-10.2); Carbon Dioxide 28 mmol/L (22-30); Chloride 89 mmol/L (98-107); Estimated Creatinine Clearance 11 ml/min; Glucose 153 mg/dl (70-99); Magnesium 2.1 mg/dl (1.6-2.3); Sodium 128 mmol/L (135-145); Total Bilirubin 0.7 mg/dl (0.2-1.3); eGFR 8.57
[2023-12-08] MEDS: SOLU-MEDROL PF 60 MG IV ×3 (05:09→22:12)
[2023-12-08 05:40] LABS: Glucose - Point of Care 132 mg/dl (70-99)
--- NOTE | 2023-12-08 07:23 | W.PN.INTV ---
Today's Communication / Plan
Recommendations
O2
CS
Insulin gtt
PD, eventual HD for placement
Assessment
-
Assessment:
Mr Blair Thakkar is a 63/M adm 11-12 with confusion and EV edema. Known h/o CKD on PD, recently not able to do PD himself due to confusion, did. At ER, confused, hypoxemic. Seen by Neurology, no acute findings on CT and MRI brain. Seen by
Renal, resumed PD soon after adm.� VTach episode on night 11-16, received IV Mag with resolution. VTach returned on early afternoon 11-17, started Mag IV infusion, MS continued deteriorating, became unresponsive, VTach deteriorated to TDP, then
VFib, shock at 360K x1, developed PEA, received 3 doses epinephrine, total CPR time about 3 min with ROSC, intubated by anesthesia with no reported difficulty
Impression:
Acute hypoxemic respiratory failure: Bilateral infiltrates with thick GGO seen on CTA chest from 11/23/2023 --> repeat CT chest on 12/03 shows persistent albeit improved bilateral infiltrates with improved confluent GGO
Differential diagnosis includes pulmonary edema/inflammatory pneumonitis/less likely infectious --> based on his imaging and him being net negative, this is inflammatory pneumonitis (idiopathic at this point)
Hx of bilateral ground-glass opacities on former CT imaging from April 2021
Cardiac arrest �11-17-23
VTach, TDP, VFib, PEA
Low normal serum Mg on 11-16 and given IV Mag on 11-16 and also 11-17 (Mg was running at time of arrest)
Transaminitis - could be reaction from the high-dose steroids
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
CKD on PD
CAD s/p CABG
PVD s/p bilateral EV stenting
Emergent stenting RLE Jun 2021 ()
DM
HTN
HLD
Depression
Obesity

Plan:
11/21/2023: Transferred back to the ICU with increased work of breathing necessitating�noninvasive mechanical ventilation.�
Chest x-ray at that time with ? mild pulmonary edema bilaterally.
CT chest 11/23/2023: Extensive bilateral groundglass opacities with subsegmental bibasilar atelectasis.� No pulmonary embolism.
CT Chest 12/03/2023: Diffuse interstitial and groundglass opacities throughout both lungs with some improved aeration compared to the chest CT from 11/23/2023.
-
Acute Hypoxemic Respiratory Failure: worsening bilateral infiltrates on CXR from 11/28/2023 - suspect an inflammatory pneumonitis; cannot rule out aspiration with subsequent acute lung injury.� Patient has never been on amiodarone. Bilateral
interstitial/groundglass opacities improved based on CT chest (12/03/2023)
Hypoventilation is also contributing to his hypoxia as he is barely pulling 1L on the incentive spirometer, encouraged to improve adherence to IS
No antibiotics were given-no evidence for infection.
Right heart catheterization 11/24/2023: Not consistent with volume overload.
Slowly responding to steroids -->�was on solumedrol 40mg IV q6hr (after being on prednisone 40mg daily x 2 days prior on 11/27 + 11/28, and before that was on decadron 4mg IV q8hr from 11/24 - 11/26)- considering he remains hypoxic with inability to
reduce FiO2 lower than 60%, raised steroids to MP 125mg IV q6hr on 12/02; adjust as pt improves --> reduced MP to 60mg IV q6hr starting 12/06, will proceed to very slow taper over a period of weeks, down to 60 mg IV q8 on 12-08
Trend CRP, BNP and procal --> CRP continues to downtrend. BNP remained >27k since 11-12, barely down to 24,700 on 12-06
PCT declining on 12-06 (0.40) as c/w 1.36 (11-24): but CKD on PD
Encourage incentive spirometer and up OOB as able
Of note, he has had bilateral groundglass opacities on his chest on former CT imaging as far back as April 2021.� He denied any personal history of connective tissue disease.� Checking CTD panel including: CCP-Ab (normal), Scl-70 (negative),
centromere (negative), ADELAIDA (negative), CRP, ESR (^), Jeanne-1 (negative), SS-A/B (negative); RF (negative). - of note, labs were checked prior to raising his steroid dose
Based on CT Chest 12-03, there is improvement in bilateral opacities, now with persistent b/l opacities but his confluent GGO has reduced, films show now fibrosis and traction bronchiectasis
Considered bronchoscopy with BAL, however given his high FiO2 requirements and physical deconditioning, the practicality of obtaining a BAL may not be possible without high risk of him becoming intubated.
CXR 12-06: portable, mild interim improvement of basilar GGOs
continue physical therapy/Occupational Therapy
Speech evaluation noted: No overt aspiration.� Continue with aspiration precautions.
-
D/c dronabinol 12-06, and started buspirone for anxiety and depression
Above agreed by [facility] salon sales consultant 12-07, noted buspirone may take up to wks for benefit, may increase dose as tolerated
VTach evening 11-16-no further episodes.
Low normal Mg, replaced IV at time of event
No gross e-lyte abnormalities at time of VTach, TDP, VFib/PEA
Status post cardiac arrest 11-17
Required intubation-CPR, 3 epi doses, shock x1 at 360. CPR for about 3 min till ROSC
Extubated 11/18/2023.
Continue to monitor electrolytes with goal K>4, Mg>2
Continue alarm security or surveillance monitor.
Right heart catheterization 11/24/2023: Not consistent with volume overload.
Cardiology has followed till 12-02, then will follow at a distance for eventual decision re ICD based on assessment of QT and LHC
-
Nephrology continues to follow.
Continue to maintain negative fluid balance via peritoneal dialysis.
As will need placement after inpatient stay will need conversion to HD (PD is not commonly accepted for placement)
-
Antibiotics discontinued 11/19/2023.� No evidence for infection.
Restarted on cefepime 11/21/2023: � No evidence for infection.� Discontinued antibiotics.
All cultures were negative.
-
Hyperglycemia: Steroid-induced
Goal BG 140-180 mg/dL
ISS AC
Glycemic protocol with insulin drip restarted on 12/03 due to hyperglycemia, currently at 0.6-6 U/hr --> wean off as his steroid dose decreases, and then resume basal-bolus insulin dosing
Transaminitis and AP rising since 12-03
Abd US 12-06 with perihepatic ascites likely related to PD, s/p cholecystectomy, pancreas not visualized
On ezetimibe which could be causing the lab abnormalities, will d/c for now
Now interim improvement in transaminases and AP
-
On chronic coumadin for h/o PVD s/p stents - goal INR: 2-3
Daily INR and adjust Coumadin as needed
Monitor for bleeding
-
He was downgraded to IMU on 11/27/2023, however he is now upgraded back to ICU level of care given his high FiO2 requirements as well as hyperglycemia requiring insulin gtt.
D/w MDT
Prognosis remains guarded
Full code status
Critical care time: 35 min

Diagnostic tests:
CT Chest w/o contrast 12-03-2023:
1. Diffuse interstitial and groundglass opacities throughout both lungs with some improved aeration compared to the chest CT from 11/23/2023.
2. Moderate upper abdominal ascites.
CTA Chest 11-23-2023:
1). There is no pulmonary embolism
2).There is diffuse groundglass airspace disease throughout both lungs, most prominent at the lung bases without associated pleural effusions or overfilling of the pulmonary vasculature suggesting that this diffuse interstitial pneumonia such as may
be seen with COVID 19.
3). Moderate-large volume abdominal ascites
4). Postoperative changes with wire sternal sutures and mediastinal clips
CXR 12-05-2023: Persistent generalized diffuse bilateral interstitial and groundglass opacity. Slightly diminished degree of inspiration compared to prior examination, which may be contributing to slight increase crowding of parenchymal markings at
the lung bases. No pneumothorax. The cardiomediastinal margins are stable.
CXR 11-30-2023:� Compared to CXR from 11/28/2023; Moderate diffuse interstitial pneumonia, not significantly changed when compared with prior study
CXR 11-17- pm: interim intubation and GT. pulm vasc and parenchymal congestion.
CXR -05 and 10-24 AM, portable, improved pulm vasc and parenchymal congestion, sternotomy
TTE 11-17-23 (post cardiac arrest)
CONCLUSIONS
�Limited study
�Normal left ventricular chamber size. Mild concentric left ventricular
�hypertrophy. Normal left ventricular systolic function. Left ventricular
�ejection fraction is 50% by Grimaldo' s method.� Diastology not assessed.
�Since echocardiogram November 15, 2023 which was reviewed, there is no
�significant change.
TTE 11-15-23
CONCLUSIONS
�Normal left ventricular chamber size. Normal left ventricular systolic
�function. Normal regional wall motion. Mild concentric left ventricular
�hypertrophy. Left ventricular ejection fraction is 55-60% by visual estimate.
�Diastolic function indeterminate due to atrial fibrillation.
�Mildly thickened mitral valve leaflets. Mitral annular calcification. Mitral
�valve opens normally. Trace mitral regurgitation.
Subjective Dataa
Subjective Data
Date of Service:
Date of Service: December 08, 2023
Chief Complaint: Foam Molder Follow Up (Acute hypoxemic respiratory failure requiring noninvasive mechanical ventilation.)
Subjective:
No major events reported overnight
Was able to be out of chair yesterday for a number of hours
Continue trying to wean down FiO2, continues on high flow nasal cannula
Reports persistent weakness, continues appearing depressed
Review of Systems
General: Fever (n), Sweats, Chills (n) and Satisfactory Appetite (n)
Cardiopulmonary: Dyspnea (mild at rest on O2), Dyspnea on Exertion, Cough (n), Chest Pain (n), Edema (n) and Hemoptysis (n)
GI: Abdominal Pain (n), Nausea and Vomiting (n)
Neuro: Weakness
Objective Data
Data Reviewed
Vital Signs / I&O / Oxygen:
Vital Signs
Temp Pulse Resp BP Pulse Ox
98.0 F 68 22 136/31 100
12/08/23 03:32 12/08/23 06:00 12/08/23 06:00 12/08/23 06:00 12/08/23 06:00
Intake and Output
12/07/23 12/08/23 12/09/23
06:59 06:59 06:59
Intake Total 1135.0 / 1139.5 881.4 / 881.4
Output Total 350 / 350 850 / 850
Balance 785.0 / 789.5 31.4 / 31.4
SaO2 [NIV (Non Invasive 95
Ventilation)]
SaO2 [CPAP/PSV] 95
SaO2 [A/C] 96
SaO2 100
Nasal Cannula flow liters per 50
minute
Physical Exam
General: Respiratory Distress (with activity), Comfortable and Chills (negative)
HEENT: Normocephalic, Anicteric and Moist Mucous Membranes
Cardiovascular: S1-S2, Murmur (n), Peripheral Edema (n) and Other (normal rate)
Respiratory: Clear (Anteriorly), Wheeze (negative), Crackles (Posterior bibasilar), Rhonchi (negative), Non-Labored Respirations and Stridor (n)
GI: Soft, Non Distended, Non Tender and Normal Bowel Sounds
Neurology: Awake, Oriented and No Motor Deficits
Skin: Warm and Dry
Labs/Micro/Reports
Lab Data
12/08/23 03:34
12/08/23 03:34
Laboratory Results
12/08/23
03:34
PT 27.4 H
INR 2.50
--- NOTE | 2023-12-08 07:42 | W.PN.HOSP.TC ---
Today's Communication/Plan
-
Continue high-dose of steroids and oxygen supplementation. Continue insulin drip.
Assessment / Plan
Assessment / Plan
Gen: NAD, awake and alert, well-developed, well-nourished
Eyes: Continues to remain EOMI, PERRLA, no scleral icterus.
Neck: supple.
CV: Continues to remain RRR, +S1/S2, no m/r/g.
Resp: Rales in the left chest anteriorly
Abd: +BS, soft, NT, ND
Skin: No rashes.
Neuro: CN 2-12 intact, non-focal.
Psych: Normal mood and affect.
CT chest 11/23/23:
1). There is no pulmonary embolism
2).There is diffuse groundglass airspace disease throughout both lungs, most prominent at the lung bases without associated pleural effusions or overfilling of the pulmonary vasculature suggesting that this diffuse interstitial pneumonia such as may
be seen with COVID 19.
3). Moderate-large volume abdominal ascites
4). Postoperative changes with wire sternal sutures and mediastinal clips
CXR 11/26/23: Hazy patchy bibasilar opacification increased in comparison to most recent prior chest radiograph, possibly representing pneumonitis.
CXR 11/28/23: Worsening diffuse interstitial pneumonia.
CT chest 12/03/23:
1. Diffuse interstitial and groundglass opacities throughout both lungs with some improved aeration compared to the chest CT from 11/23/2023.
2. Moderate upper abdominal ascites.
A/P:
Acute hypoxic respiratory failure:
-After his prolonged hospital course and based on the evidence we have at hand, it appears etiology is acute lung injury due to acute interstitial pneumonia/inflammatory pneumonitis per pulm
-Was on IV dexamethasone, then transitioned to prednisone, now on Solumedrol now 60 mg IV Q6H
-was on insulin drip for steroid-induced hyperglycemia, then transitioned to SC insulin, now back on insulin gtt.
-was weaned down to mid flow 8L O2 on 11/27/23 from High Flow Oxygen prior. Now on 55L/50% highflow.
-No need for antibiotics
-RF NEG, ESR 80, CRP 10.8
-rest of CTD panel pending (CCP-Ab, Scl-70, centromere, ADELAIDA, CRP, Jeanne-1 and SS-A + SS-B)
ESRD on PD:
-Continue PD per nephrology. Nephrology following.
-Volume effectively coming off but would not be feasible upon discharge for either home (prob can not do it by himself) or SNF (would not be accepted).
-Would likely require conversion to hemodialysis but will defer to nephrology for timing
Cardiopulmonary arrest/CAD:
-VT/V Fib arrest on 11/17/23 with ROSC
-V. tach-->TDP-->V Fib-->PEA. CPR abt 3 min and Epinephrine x3. V Fib s/p shock 360J x1--> ROSC achieved.
-On aspirin, beta-blockers increased metoprolol 25 mg twice a day, on statin atorvastatin 40 mg p.o. nightly.
-monitor QTc as appropiate
-Right heart cath showed PCWP of 13 on 11/24/23
-Transthoracic echocardiogram--> EF 50%, mild concentric left ventricular hypertrophy, no significant changes from prior echo.
-Cardiology following
-Known history of CAD with CABG back in 1995.
-Plan for left heart cardiac cath once respiratory status stable (possible AICD)
Peripheral vascular disease:
-cont ASA/statin.
-Known PVD, femoropopliteal bypass 2015, right CEA 2018, left CEA 2018, right Stent [employer]IV[employer] 2020
-was on Heparin drip, now transitioned to warfarin on 11/25/23 (no bridge was needed). INR now therapeutic. Check INR tomorrow. INR today 2.5
Acute metabolic encephalopathy:
-was multifactorial in nature with uremia and hypoxemia but now back to his baseline.
-Head CT with impression of no acute intracranial abnormality but some chronic changes noted.
-MRI brain negative for acute stroke or pathology.
Elevated LFT
-Possible ischemic/shock in nature but usually in the thousands but could be trending down
-seen US abd
-GI consult appreciated yesterday
Depression/Anxiety
-zoloft had been d/c prior due qtc
-xanax and buspar
-psych consult appreciated yesterday in light of difficult situation and choices- patient agreed to discuss with psych.
Other problems:
Essential hypertension: cont BB
Atrial tachycardia: Continue BB
Chronic diastolic CHF: cont BB and maintenance of euvolemia via dialysis
Hypokalemia, resolved
Hypomagnesemia: cont PO Mg
Hyperlipidemia: cont Zetia, holding statins due to increased lft
FULL/coumadin
Total time spent on today's encounter was 52 minutes which included time spent in counseling the patient/family regarding diagnosis and treatment plan as listed above, goals of care, and symptom management. Case was discussed with nursing staff,
specialists, and care coordinators/case management. All labs and imaging personally reviewed by me. Remainder the time spent in detailed review of previous records, lab data, imaging, and other medical provider documentation.
Anticipated Discharge: > 48 hours
Subjective/Interval History
-
Date of Service: December 08, 2023
Patient still short of breath and anxious and requires supplemental oxygen. No chest pain. Afebrile. Looks frail
Objective Data
-
Labs:
Laboratory Results
12/08/23
03:34
WBC 16.9 H
Hgb 11.6 L
Hct 34.4 L
Plt Count 106 L
PT 27.4 H
INR 2.50
Sodium 128 L
Potassium 4.0
Chloride 89 L
Carbon Dioxide 28
BUN 87 H
Creatinine 6.7 H*
Glucose 153 H
Calcium 7.9 L
Total Bilirubin 0.7
AST 96 H
ALT 405 H
Alkaline Phosphatase 188 H
Vital Signs:
Vital Signs
Temp Pulse Resp BP Pulse Ox
98.0 F 68 22 136/31 100
12/08/23 03:32 12/08/23 06:00 12/08/23 06:00 12/08/23 06:00 12/08/23 06:00
I&O
12/07/23 12/08/23 12/09/23
06:59 06:59 06:59
Intake Total 1135.0 / 1139.5 881.4 / 881.4
Output Total 350 / 350 850 / 850
Balance 785.0 / 789.5 ..4
[2023-12-08 07:43] LABS: Glucose - Point of Care 116 mg/dl (70-99)
[2023-12-08] MEDS: NOVOLOG FLEXPEN SC ×3 (07:53→18:03)
[2023-12-08] MEDS: MAGNESIUM OXIDE 500 MG PO (08:47)
[2023-12-08] MEDS: LOW STRENGTH ASPIRIN 81 MG PO (08:47)
[2023-12-08] MEDS: SENOKOT-S 1 TABLET PO ×2 (08:47→19:37)
[2023-12-08] MEDS: LOPRESSOR 12.5 MG PO ×2 (08:47→19:34)
[2023-12-08] MEDS: PROTONIX 40 MG PO (08:47)
[2023-12-08] MEDS: MIRALAX 17 GRAMS PO (08:48)
--- NOTE | 2023-12-08 08:55 | W.PN.GI.CBS2 ---
Addendum entered and electronically signed by Anastacia Dobbins MD 12/08/23 16:38:
I saw and examined the patient.
The MUSEUM LIBRARIAN or PA's note was reviewed and I agree with the note.
Comment: No significant events overnight
LFTs slowly trending down, possibly related to shock liver, abdominal ultrasound otherwise unremarkable
Agree with adding hepatitis panel
Will follow for now
Original Note:
Today's Communication / Plan
-
etiology of elevated LFT's with likely some chronic Alk phos elevation with level 150-160 in 2020 and 2022 but rise of AST/ALT likely down trend from VT arrest 11/17 (hypotension/shock liver) as no LFT's checked post code vs hepatic congestion,
medication vs other
cont to trend down
hepatitis panel pending
US as noted with mild perihepatic ascites with hx PD and stable liver findings
check hepatitis panel
trend hbg with anemia
cont miralax and senna daily with constipation add dulcolax supp as needed
Assessment / Plan
-
Pt is a 63yo with hx PAD with prior bypass stenting on chronic Coumadin on admission, CAD with prior CABG, ESRD on PD, DM with admission 11/12 for volume overload and CHF. On 11/17 noted with V tach arrest with transfer to ICU with epi, shock and
intubation with need for pressors. He slowly improved but several days later noted with hypoxemia with increased O2 requirement with right heart cath completed and plan for eventual left cath. Now asked to see for increased LFT's. In review
with labs some chronic alk phos elevation mid 150's. On admission11/12 bili 0.8, AST 54, ALT 45 and alk phos 93. LFT's not checked for days then noted with bili 0.5, AST 206, ALT 413, alk phos 201 on 12/03 then bili 0.6, AST 131, ALT 457, alk phos 198
on 12/07.
12/06 US abdomen with perihepatic ascites related to PD no abnormality of liver. s/p carlitos with CBD 7 mm pancreas not seen. Pt denies hx liver issues in past. Pt unsure about medication changes.
Laboratory Tests
12/07/23 12/07/23 12/07/23
03:15 03:15 03:15
Total Bilirubin 0.6
AST 131 H
ALT 457 H
Alkaline Phosphatase 198 H
12/08/23 12/08/23 12/08/23
03:34 03:34 03:34
Total Bilirubin 0.7
AST 96 H
ALT 405 H
Alkaline Phosphatase
12/08/23
03:34
Total Bilirubin
AST
ALT
Alkaline Phosphatase 188 H
-increased LFT's with some chronic mild alk phos elevation and new AST/ALT elevation
-concern for CHF on admission
-VT arrest 11/17/23
-continued hypoxemia
-anemia
-hyponatremia
-constipation
other medical problems:
-PAD on Warfarin
-ESRD on PD
-hypertension
PLAN:
etiology of elevated LFT's with likely some chronic Alk phos elevation with level 150-160 in 2020 and 2022 but rise of AST/ALT likely down trend from VT arrest 11/17 (hypotension/shock liver) as no LFT's checked post code vs hepatic congestion,
medication vs other
cont to trend down
hepatitis panel pending
US as noted with mild perihepatic ascites with hx PD and stable liver findings
check hepatitis panel
trend hbg with anemia
cont miralax and senna daily with constipation add dulcolax supp as needed
Subjective
Subjective
Date of Service: December 08, 2023
feeling ok, 2 gram Na diet, 12/01 stool
Objective
Data Reviewed
Laboratory Data:
Laboratory Results
12/08/23 03:34
12/08/23 03:34
Laboratory Results
PT 27.4 Sec (11.4-14.6) H 12/08/23 03:34
INR 2.50 12/08/23 03:34
APTT 80.4 Sec (23.4-35.0) H 11/28/23 03:58
Phosphorus 5.3 mg/dl (2.5-4.5) H 12/06/23 04:16
Magnesium 2.1 mg/dl (1.6-2.3) 12/08/23 03:34
Total Bilirubin 0.7 mg/dl (0.2-1.3) 12/08/23 03:34
AST 96 U/L (17-59) H 12/08/23 03:34
ALT 405 U/L (0-50) H 12/08/23 03:34
Alkaline Phosphatase 188 U/L (38-126) H 12/08/23 03:34
Vital Signs and I&O:
Vital Signs
Temp Pulse Resp BP Pulse Ox
97.6 F 69 22 146/49 97
12/08/23 07:44 12/08/23 08:47 12/08/23 08:29 12/08/23 08:47 12/08/23 08:29
I&O
12/07/23 12/08/23 12/09/23
06:59 06:59 06:59
Intake Total 1135.0 / 1139.5 881.4 / 884.0 2.6 / 2.6
Output Total 350 / 350 850 / 850
Balance 785.0 / 789.5 31.4 / 34.0 2.6 / 2.6
Physical Exam
Physical Exam
HEENT: Anicteric and Moist mucous membranes
Cardiology: Normal Sinus Rhythm
Pulmonary: Other (decreased --remains on high flow )
GI: Soft, Non Distended and Non Tender
Neuro: Non Focal
[2023-12-08 09:48] LABS: Glucose - Point of Care 93 mg/dl (70-99)
--- NOTE | 2023-12-08 10:29 | PTCARENOTE ---
update in grand rounds this am. Follow up with veterinary surgeon, pharmacy and critical cares team. Update with Hospitalist. Continue with follow up teaching and reinforcement for patient. PD is ongoing as ordered. Await updated plan of cares. Patient
asking questions related to hemodialysis. Continue to provide emotional and supportive cares. Follow up PD exchange [phone]. Continue input output and peritoneal dialysis trends.
--- NOTE | 2023-12-08 11:03 | PN.DE.MGMTRT ---
Insulin Management
- -
11/18/2023 Diabetes Management Consult
Admitted 11/12 for R foot wound, confusion, SOB, swelling. PMH renal failure with peritoneal dialysis, HTN, PVD type 2 diabetes. Prior to admission chart reflects he was taking 60 units Basaglar daily with NovoLog 28 units BID. A1C 8.6%. Patient
had cardiac arrest 11/16 now intubated on mechanical ventilation and insulin infusion. Prior to this patient was receiving Lantus in AM with AC NovoLog at reduced doses.
Will continue glycemic protocol at this time. If patient is weaned off of ventilator will assess for readiness to transition to subcutaneous insulin.
11/19/2023: Diabetes Management F/U:
Pt extubated last evening. Doing well, sitting up in bed, offers no complaints.
Glucose trended up to 197, remains on glycemic protocol requiring 0.8-7 units of insulin/ hr while NPO.
Pt was taking 60 units Basaglar daily with NovoLog 28 units BID WOOL AND PELT GRADER.
Will transition off drip. Give Lantus 30 units NOW, turn drip off 1 hr after.
Start AC NovoLog 8 units and moderate corrective insulin with meals. Start 1800 ADA diet. Accucheks AC/HS
Will follow for further needed insulin adjustments. Plan of care d/w pt and Nurse.
11/22/2023: Diabetes Management F/U:
Pt transferred back to ICU for increased O2 requirements.
Currently NPO for R/LHC today. Premeal glucose trended up to 345 requiring 3-7 units of corrective insulin.
Will make no changes to regimen at this time, reassess after procedure and make necessary adjustments to insulin dose
11/23/2023 Diabetes Management Follow Up
Patient glucose controlled on current regimen, trended down to 79 @ HS. Will slightly decrease AM Lantus dose to 27 units to start Wednesday, 11/24.
Patient is NPO for procedure, will order one time dose of Lantus 15 units now.
11/24/2023 Diabetes Management Follow Up
Cardiac cath cancelled yesterday due to patient hypoxia. Dexamethasone 4 mg BID started last evening, glucose up to 460. Insulin administered. Fasting glucose 393. Glycemic protocol has been started. Will continue today and reassess in AM/
11/25/2023 Diabetes Management Follow up
Patient remains on steroids, glucose controlled on glycemic protocol requiring .8 to 10 units NovoLog per hour. He is eating meals and receiving supplemental insulin. Will continue glycemic protocol, assess in AM for readiness to transition to
subq regimen. I spoke with patient nurse.
11/26/2023: Diabetes Management F/U:
Patient remains on steroids- Dexa 4mg Q8hrs, continues on glycemic protocol, glucose range 89-219 requiring .5 to 12 units NovoLog per hour.
He is eating meals and receiving supplemental insulin.
Plan is to start steroid taper today, will continue glycemic protocol for now and reassess later today for readiness to transition to SQ insulin.
11/29/2023: Diabetes Management F/U:
Steroids were tapered down to Pred 40mg daily--> transitioned off CC glycemic protocol to SQ insulin over the weekend
Noted for worsening oxygenation--> resumed high dose IV steroids--> Hyperglycemia.
Pt resting in bed, offers no complaints. Glucose has remained elevated, FBG 301 this AM, premeal range 199 to 345, Dr. Lopez has increased his AC NovoLog dose to 8 units. Will increase Lantus to 35 units, 1st dose will be given tomorrow AM. Cont
current AC dose and corrective insulin with meals
Will closely follow and adjust insulin if necessary.
11/30/2023 Diabetes Management Follow up
Patient continues on steroids. Glucose remains elevated > 200. Lantus to increase to 35 units this AM. NovoLog increased yesterday to 12 units, continued to require corrective insulin. Will increase AC NovoLog to 15 units. Will follow
12/01/2023 Diabetes Management Follow up
Patient continues on steroids. Insulin increased yesterday, glucose remains > 200. Lunch standing dose of NovoLog not given, glucose 364. Additional NPH given. Patients home Basaglar reported at 60 units. Will increase AM Lantus to 40 units,
will increase AC NovoLog to 18 units.
12/02/2023 Diabetes Management Follow up
Patient steroids decreased to 40 mg. Insulin increased again yesterday. Glucose remains in 300's. Will again increase Lantus to 50 units in AM with NovoLog 22 units AC with corrective insulin.
12/03/2023: Diabetes Management F/U:
Steroids were tapered down to Pred 40mg daily--> Pt was noted for worsening oxygenation--> resumed high dose IV steroids--> Solumedrol 125mg Q6hrs
Now with Hyperglycemia. Insulin was adjusted yesterday with minor improvement in glucose levels. FBG pending, was 258 before breakfast.
Will start CC Glycemic protocol for optimal glucose control in setting of escalated IV Steroids. Discussed with pt, Nurse and ICU rounding team.
12/06/2023: Diabetes Management F/U:
Patient remains on IV steroids- Methylpred 60mg Q6hrs and on glycemic protocol, glucose range 76-178 requiring .8 to 7 units NovoLog per hour.
His appetite is poor but eating some meals and receiving supplemental insulin.
Will continue glycemic protocol, clinically not ready to transition to SQ insulin today. Will closely follow.
Discussed with pt, Nurse and ICU rounding team.
12/07/2023 Diabetes Management Follow up
Patient continues on steroids 60 mg IV Q6 hours. He is currently on the glycemic protocol requiring .7 to 7 units per hour. Will continue glycemic protocol. As IV steroids wean down will consider transition from protocol to subcutaneous insulin.
12/08/2023 Diabetes Management Follow up
Patient continues on steroids. Appetite poor. He is currently on the glycemic protocol requiring .6 to 6 units per hour. Will continue glycemic protocol.
Diabetes History
- -
Type of Diabetes: 2 requiring insulin
Pre-Admission Diabetes Regimen
12/08/23
03:34
Creatinine 6.7 H*
Lab Results
Hemoglobin A1c 8.6 % (4.0-5.6) H 11/13/23 06:09
Insulin Pump Settings
IP Diabetes Regimen
12/07/23 12/07/23 12/07/23
12:31 15:01 15:24
Glucose
POC Glucose 127 H 67 L 206 H
12/07/23 12/07/23 12/07/23
16:29 17:33 18:31
Glucose
POC Glucose 245 H 219 H 186 H
12/07/23 12/07/23 12/07/23
19:27 20:25 21:29
Glucose
POC Glucose 164 H 146 H 135 H
12/07/23 12/07/23 12/08/23
22:28 23:28 01:31
Glucose
POC Glucose 93 108 H 122 H
12/08/23 12/08/23 12/08/23
03:19 03:34 05:29
Glucose 153 H
POC Glucose 149 H 132 H
12/08/23 12/08/23
07:31 09:36
Glucose
POC Glucose 116 H 93
Meal type: Dinner
Meal type: Lunch
Amount consumed: 10%
Amount consumed: Patient refused
Patient Education
[2023-12-08 11:54] LABS: Glucose - Point of Care 150 mg/dl (70-99)
--- NOTE | 2023-12-08 11:56 | W.PN.NEPH.PH ---
Today's Communication / Plan
-
cotn PD
Assessment/Plan
-
Assessment
-ESRD on PD
-volume overload
-CHF
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
-PAD
-HTN
-edema
-CAD/CABG
-DM2
-Hyponatremia
-In-hospital cardiac arrest 11/17/23
-VT arrest
s/p shock x1 and Epi x1 11/17/23
Plan
-cont PD alternate 2.5%and 4.25% 2L q4h exchanges
wts are stable
remains on high flow-very slow to improve on steroids per pulm
improving LFTs
on insulin gtt -BG controlled
-likely will need placement in future, and will need conversion to HD for that as few or no facilities will do PD-reviewed with pt
-
-
Date of Service: December 08, 2023
CC / HPI / ROS
-
Chief Complaint:
ESRD
History of Present Illness:
PD in progress
s/p code 9 with VT 11/17/23
on high flow O2 and remains on IV Decadron
BP stable
LFTs slightly better
Review of Systems:
no fever
no CP
very slow improvement of sob
Weights stable
Labs
-
Labs:
WBC 16.9 10^3/uL (4.8-10.8) H 12/08/23 03:34
RBC 3.87 10^6/uL (4.70-6.10) L 12/08/23 03:34
Hgb 11.6 g/dL (13.0-18.0) L 12/08/23 03:34
Hct 34.4 % (39.0-52.0) L 12/08/23 03:34
Plt Count 106 10^3/uL (130-400) L 12/08/23 03:34
Sodium 128 mmol/L (135-145) L 12/08/23 03:34
Potassium 4.0 mmol/L (3.5-5.1) 12/08/23 03:34
Chloride 89 mmol/L (98-107) L 12/08/23 03:34
Carbon Dioxide 28 mmol/L (22-30) 12/08/23 03:34
BUN 87 mg/dl (9-20) H 12/08/23 03:34
Creatinine 6.7 mg/dL (0.7-1.3) H* 12/08/23 03:34
eGFR 8.57 12/08/23 03:34
Glucose 153 mg/dl (70-99) H 12/08/23 03:34
Calcium 7.9 mg/dl (8.4-10.2) L 12/08/23 03:34
Phosphorus 5.3 mg/dl (2.5-4.5) H 12/06/23 04:16
Jzc-P-Xdkfqqctkoa Pept 41770 pg/ml 12/06/23 04:16
Albumin 2.5 g/dl (3.5-5.0) L 12/08/23 03:34
Physical Exam
-
Vital Signs:
Vital Signs
Temp Pulse Resp BP Pulse Ox
97.7 F 65 14 128/57 96
12/08/23 11:44 12/08/23 11:00 12/08/23 11:00 12/08/23 10:00 12/08/23 11:46
Cardiovascular:: Regular rate and rhythm
Lung Excursion:: Abnormal (decreased)
Abdomen:: Nontender and Soft
Extremity Edema:: None: Bilateral:
Sweeney Catheter: No
[2023-12-08] MEDS: XANAX 0.5 MG PO ×2 (12:53→23:04)
--- NOTE | 2023-12-08 13:35 | PTCARENOTE ---
No noted change in assessment. Continue progressive slow wean of O2 as tolerated. HiFlo continues 50-50. Reinforce need for increased Po intake, Increased caloric intake, Glucose concerns and trends. Follow up with Diabetic steam room attendant. Follow
up with pharmacy continue to coordinate care med reviews and follow up concerns. Will update again with edge grinder machine team and follow any new orders or plan of cares.
[2023-12-08 13:50] LABS: Glucose - Point of Care 204 mg/dl (70-99)
--- NOTE | 2023-12-08 14:15 | W.PN.UPDATE ---
Update Note
Progress Note Update
patient seen chart reviewed. patient admits he is very very anxious. he has taken ativan since his mother over 20 years ago. buspar might be helpful in the terminal carman but will not do much for the short term and often people who have taken
benzos prison do not perceive buspar as very helpful. that said will increase buspar dose to 5 mg bid and liberalize xanax to q 8 (nursing told me it was q 12 but it seems it has been increased to q 8h by public address announcer). for the record he was on
zoloft. he does not seem convinced it was doing much but zoloft is not usually associated w signficant change in qtc. the reality is that patient is very ill at this point and his exacerbation of anxiety is quite understandable.
[2023-12-08 15:27] LABS: Glucose - Point of Care 125 mg/dl (70-99)
[2023-12-08 18:14] LABS: Glucose - Point of Care 91 mg/dl (70-99)
[2023-12-08] MEDS: COUMADIN 1 MG PO (18:24)
[2023-12-08] MEDS: DULCOLAX 10 MG RECTAL (19:34)
[2023-12-08 20:00] LABS: Glucose - Point of Care 126 mg/dl (70-99)
--- NOTE | 2023-12-08 20:00 | PTCARENOTE ---
Pt received this pm A&Ox3, nad noted. pt on highflow NC 50L 50%. SOB on any exertion. Pt also c/o SOB at rest. Pt follows commands, flat affect. Lung sounds diminished b/l. SR-ST w/ ADVANCED PRACTICE NURSE on the monitor. hypoactive BS throughout. doculax suppository
given per prn med orders. PD ongoing q4 hours per orders alternating 2.5 and 4.5% dialysate. GP ongoing, insulin gtt titrated per protocol. Pt able to make needs known. pt encouraged to turn q2 while in bed. Poor PO intake for dinner.
[2023-12-08] MEDS: ROXICODONE 5 MG PO (21:37)
[2023-12-08 22:25] LABS: Glucose - Point of Care 172 mg/dl (70-99)
[2023-12-09] VITALS (33 sets, daily range): BP systolic 59–159; BP diastolic 14–122; BMI 28.3
[2023-12-09 00:18] LABS: Glucose - Point of Care 140 mg/dl (70-99)
--- NOTE | 2023-12-09 01:02 | PTCARENOTE ---
PD ongoing, currently dwelling. xanax and oxycodone given per prn orders for patient comfort and pain relief per pt request. GP protocol, insulin gtt titrated per orders.
[2023-12-09] MEDS: NOVOLIN R INSULIN INFUSION 100 IV (02:16)
[2023-12-09 02:29] LABS: Glucose - Point of Care 119 mg/dl (70-99)
[2023-12-09] MEDS: ROXICODONE 10 MG PO ×2 (03:21→10:36)
[2023-12-09] MEDS: APRESOLINE 10 MG IV (04:43)
[2023-12-09 04:53] LABS: Glucose - Point of Care 117 mg/dl (70-99)
[2023-12-09 05:00] LABS: % Basophils 0.1 % (0-2); % Immature Granulocytes 1.3 % (0-0.5); % Lymphocytes 1.1 % (20.5-51.1); % Monocytes 3.5 % (1.7-9.3); Absolute Immature Granulocytes 0.4 10^3/uL (0-0.05); Absolute Lymphocytes 0.4 10^3/uL (1.2-3.4); Absolute Monocytes 1.1 10^3/uL (0.1-0.6); Absolute Neutrophils 29.8 10^3/uL (1.4-6.5); Hematocrit 37.5 % (39.0-52.0); Hemoglobin 12.9 g/dL (13.0-18.0); Mean Corp Hgb Conc. 34.4 g/dL (33.0-37.0); Mean Corpuscular Hgb 30.4 pg (27.0-31.0); Mean Corpuscular Volume 88.2 fL (80.0-94.0); Mean Platelet Volume 11.8 fL (7.4-10.4); Nucleated Red Blood Cells % 0.2 % (-); Platelet Count 146 10^3/uL (130-400); Red Blood Cell Count 4.25 10^6/uL (4.70-6.10); Red Cell Dist. Width 18.4 % (11.5-14.5); White Blood Cell Count 31.7 10^3/uL (4.8-10.8)
[2023-12-09] MEDS: SOLU-MEDROL PF 60 MG IV (05:02)
[2023-12-09 05:12] LABS: INR 2.82; PT 30.1 Sec (11.4-14.6)
[2023-12-09 05:27] LABS: ALT (SGPT) 339 U/L (0-50); AST (SGOT) 73 U/L (17-59); Albumin 2.7 g/dl (3.5-5.0); Alkaline Phosphatase 188 U/L (38-126); Blood Urea Nitrogen 87 mg/dl (9-20); Calcium 8.3 mg/dl (8.4-10.2); Carbon Dioxide 27 mmol/L (22-30); Chloride 89 mmol/L (98-107); Direct Bilirubin 0.7 mg/dl (0.0-0.4); Estimated Creatinine Clearance 10 ml/min; Glucose 100 mg/dl (70-99); Sodium 129 mmol/L (135-145); Total Bilirubin 0.7 mg/dl (0.2-1.3); Total Protein 5.2 g/dl (6.3-8.2)
[2023-12-09] MEDS: MORPHINE SULFATE 2 MG IV ×4 (05:32→14:53)
[2023-12-09] MEDS: LOPRESSOR 2.5 MG IV (05:59)
--- NOTE | 2023-12-09 06:25 | PTCARENOTE ---
Pt with multiple episodes of Tachycardia to sustained tachycardia overnight, Maurilio NETWORK SYSTEMS ENGINEER made aware. Dose of lopresser 2.5mg given per orders as well as 2mg morphine per pt request for 10/10 abd pain. incont. of small brown stool. GP followed per
protocol. currently q1 hr AccuCheck. PD q4 ongoing. HFNC in place. Pulse ox censor exchanged multiple times, now on pts ear as pt moved hands often leading to inaccurate readings at times. bed linens changed and chg bath given
[2023-12-09 06:31] LABS: Glucose - Point of Care 144 mg/dl (70-99)
--- NOTE | 2023-12-09 07:48 | W.PN.INTV ---
Today's Communication / Plan
Recommendations
HFNC
Rate control
PD
GOC
Assessment
-
Assessment:
Mr Blair Thakkar is a 63/M adm 11-12 with confusion and EV edema. Known h/o CKD on PD, recently not able to do PD himself due to confusion, did. At ER, confused, hypoxemic. Seen by Neurology, no acute findings on CT and MRI brain. Seen by
Renal, resumed PD soon after adm.� VTach episode on night 11-16, received IV Mag with resolution. VTach returned on early afternoon 11-17, started Mag IV infusion, MS continued deteriorating, became unresponsive, VTach deteriorated to TDP, then
VFib, shock at 360K x1, developed PEA, received 3 doses epinephrine, total CPR time about 3 min with ROSC, intubated by anesthesia with no reported difficulty
Impression:
Acute hypoxemic respiratory failure: Bilateral infiltrates with thick GGO seen on CTA chest from 11/23/2023 --> repeat CT chest on 12/03 shows persistent albeit improved bilateral infiltrates with improved confluent GGO
Differential diagnosis includes pulmonary edema/inflammatory pneumonitis/less likely infectious --> based on his imaging and him being net negative, this is inflammatory pneumonitis (idiopathic at this point)
Hx of bilateral ground-glass opacities on former CT imaging from April 2021
Cardiac arrest �11-17-23
VTach, TDP, VFib, PEA
Low normal serum Mg on 11-16 and given IV Mag on 11-16 and also 11-17 (Mg was running at time of arrest)
Transaminitis - could be reaction from the high-dose steroids
Conditions FIELD STAFF MANAGER:
CKD on PD
CAD s/p CABG
PVD s/p bilateral EV stenting
Emergent stenting RLE Jun 2021 ()
DM
HTN
HLD
Depression
Obesity

Plan:
11/21/2023: Transferred back to the ICU with increased work of breathing necessitating�noninvasive mechanical ventilation.�
Chest x-ray at that time with ? mild pulmonary edema bilaterally.
CT chest 11/23/2023: Extensive bilateral groundglass opacities with subsegmental bibasilar atelectasis.� No pulmonary embolism.
CT Chest 12/03/2023: Diffuse interstitial and groundglass opacities throughout both lungs with some improved aeration compared to the chest CT from 11/23/2023.
-
Acute Hypoxemic Respiratory Failure: worsening bilateral infiltrates on CXR from 11/28/2023 - suspect an inflammatory pneumonitis; cannot rule out aspiration with subsequent acute lung injury.� Patient has never been on amiodarone. Bilateral
interstitial/groundglass opacities improved based on CT chest (12/03/2023)
Hypoventilation is also contributing to his hypoxia as he is barely pulling 1L on the incentive spirometer, encouraged to improve adherence to IS
No antibiotics were given-no evidence for infection.
Right heart catheterization 11/24/2023: Not consistent with volume overload.
Slowly responding to steroids -->�was on solumedrol 40mg IV q6hr (after being on prednisone 40mg daily x 2 days prior on 11/27 + 11/28, and before that was on decadron 4mg IV q8hr from 11/24 - 11/26)- considering he remains hypoxic with inability to
reduce FiO2 lower than 60%, raised steroids to MP 125mg IV q6hr on 12/02; adjust as pt improves --> reduced MP to 60mg IV q6hr starting 12/06, will proceed to very slow taper over a period of weeks, down to 60 mg IV q8 on 12-08
Trend CRP, BNP and procal --> CRP continues to downtrend. BNP remained >27k since 11-12, barely down to 24,700 on 12-06
PCT declining on 12-06 (0.40) as c/w 1.36 (11-24): but CKD on PD
Encourage incentive spirometer and up OOB as able
Of note, he has had bilateral groundglass opacities on his chest on former CT imaging as far back as April 2021.� He denied any personal history of connective tissue disease.� Checking CTD panel including: CCP-Ab (normal), Scl-70 (negative),
centromere (negative), ADELAIDA (negative), CRP, ESR (^), Jeanne-1 (negative), SS-A/B (negative); RF (negative). - of note, labs were checked prior to raising his steroid dose
Based on CT Chest 12-03, there is improvement in bilateral opacities, now with persistent b/l opacities but his confluent GGO has reduced, films show now fibrosis and traction bronchiectasis
Considered bronchoscopy with BAL, however given his high FiO2 requirements and physical deconditioning, the practicality of obtaining a BAL may not be possible without high risk of him becoming intubated.
CXR 12-06: portable, mild interim improvement of basilar GGOs
ABG 12-09 on HFNC 0.75/50L: PO2 65
continue physical therapy/Occupational Therapy
Speech evaluation noted: No overt aspiration.� Continue with aspiration precautions.
-
D/c dronabinol 12-06, and started buspirone for anxiety and depression
Above agreed by Psych senior information security consultant 12-07, noted buspirone may take up to wks for benefit, may increase dose as tolerated
New onset tachycardia 130s since 3 am 12-09, given metoprolol 2.5 mg IV with no results
Metoprolol 5 mg IV plus 250 mL NSS bolus in AM
Also received oral dose of metoprolol 12.5 mg this AM, HR down to 80s temporarily
AFib c RVR
VTach evening 11-16-no further episodes.
Low normal Mg, replaced IV at time of event
No gross e-lyte abnormalities at time of VTach, TDP, VFib/PEA
Status post cardiac arrest 11-17
Required intubation-CPR, 3 epi doses, shock x1 at 360. CPR for about 3 min till ROSC
Extubated 11/18/2023.
Continue to monitor electrolytes with goal K>4, Mg>2
Continue playground monitor.
Right heart catheterization 11/24/2023: Not consistent with volume overload.
Cardiology has followed till 12-02, then will follow at a distance for eventual decision re ICD based on assessment of QT and LHC
-
Nephrology continues to follow.
Continue to maintain negative fluid balance via peritoneal dialysis.
As will need placement after inpatient stay will need conversion to HD (PD is not commonly accepted for placement)
D/w Dr Fish by TT 12-08, considering HD later this week
-
Antibiotics discontinued 11/19/2023.� No evidence for infection.
Restarted on cefepime 11/21/2023: � No evidence for infection.� Discontinued antibiotics.
All cultures were negative.
-
Hyperglycemia: Steroid-induced
Goal BG 140-180 mg/dL
ISS AC
Glycemic protocol with insulin drip restarted on 12/03 due to hyperglycemia, currently at 0.6-6 U/hr --> wean off as his steroid dose decreases, and then resume basal-bolus insulin dosing
Transaminitis and AP rising since 12-03
Abd US 12-06 with perihepatic ascites likely related to PD, s/p cholecystectomy, pancreas not visualized
On ezetimibe which could be causing the lab abnormalities, will d/c for now
Now interim improvement in transaminases and AP
-
On chronic coumadin for h/o PVD s/p stents - goal INR: 2-3
Daily INR and adjust Coumadin as needed
Monitor for bleeding
-
He was downgraded to IMU on 11/27/2023, however he is now upgraded back to ICU level of care given his high FiO2 requirements as well as hyperglycemia requiring insulin gtt.
D/w MDT
Prognosis remains guarded
Full code status
GOC discussions ongoing
will come to meet with me 12-09 early afternoon, I advised against escalating care to [facility]
Critical care time: 35 min

Diagnostic tests:
CT Chest w/o contrast 12-03-2023:
1. Diffuse interstitial and groundglass opacities throughout both lungs with some improved aeration compared to the chest CT from 11/23/2023.
2. Moderate upper abdominal ascites.
CTA Chest 11-23-2023:
1). There is no pulmonary embolism
2).There is diffuse groundglass airspace disease throughout both lungs, most prominent at the lung bases without associated pleural effusions or overfilling of the pulmonary vasculature suggesting that this diffuse interstitial pneumonia such as may
be seen with COVID 19.
3). Moderate-large volume abdominal ascites
4). Postoperative changes with wire sternal sutures and mediastinal clips
CXR 12-05-2023: Persistent generalized diffuse bilateral interstitial and groundglass opacity. Slightly diminished degree of inspiration compared to prior examination, which may be contributing to slight increase crowding of parenchymal markings at
the lung bases. No pneumothorax. The cardiomediastinal margins are stable.
CXR 11-30-2023:� Compared to CXR from 11/28/2023; Moderate diffuse interstitial pneumonia, not significantly changed when compared with prior study
CXR 11-17-23 pm: interim intubation and GT. pulm vasc and parenchymal congestion.
CXR 01-05 and 10-24 AM, portable, improved pulm vasc and parenchymal congestion, sternotomy
TTE 11-17-23 (post cardiac arrest)
CONCLUSIONS
�Limited study
�Normal left ventricular chamber size. Mild concentric left ventricular
�hypertrophy. Normal left ventricular systolic function. Left ventricular
�ejection fraction is 50% by Grimaldo' s method.� Diastology not assessed.
�Since echocardiogram November 15, 2023 which was reviewed, there is no
�significant change.
TTE 11-15-23
CONCLUSIONS
�Normal left ventricular chamber size. Normal left ventricular systolic
�function. Normal regional wall motion. Mild concentric left ventricular
�hypertrophy. Left ventricular ejection fraction is 55-60% by visual estimate.
�Diastolic function indeterminate due to atrial fibrillation.
�Mildly thickened mitral valve leaflets. Mitral annular calcification. Mitral
�valve opens normally. Trace mitral regurgitation.
Subjective Dataa
Subjective Data
Date of Service:
Date of Service: December 09, 2023
Chief Complaint: Appliquer Follow Up (Acute hypoxemic respiratory failure requiring noninvasive mechanical ventilation.)
Subjective:
Presents tachycardia today
Received 1 dose of metoprolol 2.5 mg IV earlier today with no response
Tachypneic, mild abdominal pain, at time of visit the patient was doing peritoneal dialysis fluid
Denies chest pain
Chest x-ray today with no new infiltrates
Abdominal x-ray with no free air and no obstruction
Review of Systems
General: Fever (n), Sweats (n), Chills and Satisfactory Appetite (n)
Cardiopulmonary: Dyspnea, Cough (trace), Sputum Production, Wheezing (n) and Chest Pain (n)
GI: Abdominal Pain, Nausea and Vomiting
Neuro: Weakness
Objective Data
Data Reviewed
Vital Signs / I&O / Oxygen:
Vital Signs
Temp Pulse Resp BP Pulse Ox
97.4 F 136 29 133/63 87
12/09/23 05:46 12/09/23 07:00 12/09/23 07:00 12/09/23 07:00 12/09/23 06:00
Intake and Output
12/08/23 12/09/23 12/10/23
06:59 06:59 06:59
Intake Total 881.4 / 884.0 784.6 / 784.6
Output Total 850 / 850 1350 / 1350
Balance 31.4 / 34.0 -565.4 / -565.4
SaO2 [NIV (Non Invasive 95
Ventilation)]
SaO2 [CPAP/PSV] 95
SaO2 [A/C] 96
SaO2 87
Nasal Cannula flow liters per 50
minute
Physical Exam
General: Respiratory Distress (with activity), Comfortable and Chills (negative)
HEENT: Normocephalic, Anicteric and Moist Mucous Membranes
Cardiovascular: S1-S2, Irregular Rhythm, Murmur (n) and Peripheral Edema (n)
Respiratory: Clear (Anteriorly), Wheeze (negative), Crackles (Posterior bibasilar), Rhonchi (negative), Non-Labored Respirations and Stridor (n)
GI: Soft, Non Distended, Non Tender and Normal Bowel Sounds
Neurology: Awake, Oriented and No Motor Deficits
Skin: Warm and Dry
Labs/Micro/Reports
Lab Data
12/09/23 04:43
12/09/23 04:43
Laboratory Results
12/09/23
04:43
PT 30.1 H
INR 2.82
[2023-12-09 07:50] LABS: Glucose - Point of Care 167 mg/dl (70-99)
[2023-12-09] MEDS: NSS 250 IV (08:20)
[2023-12-09] MEDS: LOPRESSOR 5 MG IV (08:20)
[2023-12-09] MEDS: NOVOLOG FLEXPEN SC ×2 (08:24→11:33)
[2023-12-09] MEDS: LOPRESSOR 12.5 MG PO (08:26)
[2023-12-09] MEDS: LOW STRENGTH ASPIRIN 81 MG PO (08:26)
[2023-12-09] MEDS: MAGNESIUM OXIDE 500 MG PO (08:26)
[2023-12-09] MEDS: PROTONIX 40 MG PO (08:26)
[2023-12-09] MEDS: MIRALAX 17 GRAMS PO (08:26)
[2023-12-09] MEDS: SENOKOT-S 1 TABLET PO (08:26)
[2023-12-09] MEDS: XANAX 0.5 MG PO (08:27)
--- NOTE | 2023-12-09 08:37 | W.PN.HOSP.TC ---
Today's Communication/Plan
-
Transition to comfort care measures today.
Assessment / Plan
Assessment / Plan
Gen: NAD, lethargic, frail
Eyes: Continues to remain EOMI, PERRLA, no scleral icterus.
Neck: supple.
CV: Continues to remain RRR, +S1/S2, no m/r/g.
Resp: Rales in the left and right chest anteriorly
Abd: +BS, soft, NT, ND
Skin: No rashes.
Neuro: CN 2-12 intact, non-focal.
Psych: Down mood and affect.
CT chest 11/23/23:
1). There is no pulmonary embolism
2).There is diffuse groundglass airspace disease throughout both lungs, most prominent at the lung bases without associated pleural effusions or overfilling of the pulmonary vasculature suggesting that this diffuse interstitial pneumonia such as may
be seen with COVID 19.
3). Moderate-large volume abdominal ascites
4). Postoperative changes with wire sternal sutures and mediastinal clips
CXR 11/26/23: Hazy patchy bibasilar opacification increased in comparison to most recent prior chest radiograph, possibly representing pneumonitis.
CXR 11/28/23: Worsening diffuse interstitial pneumonia.
CT chest 12/03/23:
1. Diffuse interstitial and groundglass opacities throughout both lungs with some improved aeration compared to the chest CT from 11/23/2023.
2. Moderate upper abdominal ascites.
A/P:
Acute hypoxic respiratory failure:
-Discussed at length with patient and at bedside today on 12/09 and they agree with DNR/DNI and changed to comfort care measures. Aircraft Designer have discussed with them as well prior to my arrival. Start morphine drip.
-After his prolonged hospital course and based on the evidence we have at hand, it appears etiology is acute lung injury due to acute interstitial pneumonia/inflammatory pneumonitis per pulm
-Was on IV dexamethasone, then transitioned to prednisone, now on Solumedrol now 60 mg IV Q8H. will stop steroids.
-was on insulin drip for steroid-induced hyperglycemia, then transitioned to SC insulin, now back on insulin gtt. will stop insulin.
-was weaned down to mid flow 8L O2 on 11/27/23 from High Flow Oxygen prior. Now on 55L/90% highflow. Will continue oxygen for comfort.
-No need for antibiotics
-RF NEG, ESR 80, CRP 10.8
-rest of CTD panel pending (CCP-Ab, Scl-70, centromere, ADELAIDA, CRP, Jeanne-1 and SS-A + SS-B)
A-fib rapid ventricular response versus SVT:
-Rate control agents but limited by hypotension
-Cardiology reconsulted
ESRD on PD:
-Continue PD per nephrology. Nephrology following.
-Volume effectively coming off but would not be feasible upon discharge for either home (prob can not do it by himself) or SNF (would not be accepted).
-Would likely require conversion to hemodialysis but will defer to nephrology for timing
Cardiopulmonary arrest/CAD:
-VT/V Fib arrest on 11/17/23 with ROSC
-V. tach-->TDP-->V Fib-->PEA. CPR abt 3 min and Epinephrine x3. V Fib s/p shock 360J x1--> ROSC achieved.
-On aspirin, beta-blockers increased metoprolol 25 mg twice a day, on statin atorvastatin 40 mg p.o. nightly.
-monitor QTc as appropiate
-Right heart cath showed PCWP of 13 on 11/24/23
-Transthoracic echocardiogram--> EF 50%, mild concentric left ventricular hypertrophy, no significant changes from prior echo.
-Cardiology following
-Known history of CAD with CABG back in 1995.
-Plan for left heart cardiac cath once respiratory status stable (possible AICD)
Peripheral vascular disease:
-cont ASA/statin.
-Known PVD, femoropopliteal bypass 2015, right CEA 2019, left CEA 2019, right Stent [facility] PHYSICIAN SURGEON 2020
-was on Heparin drip, now transitioned to warfarin on 11/25/23 (no bridge was needed). INR now therapeutic. INR today 2.82, no need to check more INRs.
Acute metabolic encephalopathy:
-was multifactorial in nature with uremia and hypoxemia but now back to his baseline.
-Head CT with impression of no acute intracranial abnormality but some chronic changes noted.
-MRI brain negative for acute stroke or pathology.
Elevated LFT
-Possible ischemic/shock in nature but usually in the thousands but could be trending down
-seen US abd
-GI consult appreciated. Discontinue hepatitis panel
Depression/Anxiety
-zoloft had been d/c prior due qtc
-xanax and buspar
-psych consult appreciated in light of difficult situation and choices- patient agreed to discuss with psych.
Other problems:
Essential hypertension: cont BB
Atrial tachycardia: Continue BB
Chronic diastolic CHF: cont BB and maintenance of euvolemia via dialysis
Hypokalemia, resolved
Hypomagnesemia: cont PO Mg
Hyperlipidemia: cont Zetia, holding statins due to increased lft
FULL/coumadin
Total time spent on today's encounter was 52 minutes which included time spent in counseling the patient/family regarding diagnosis and treatment plan as listed above, goals of care, and symptom management. Case was discussed with nursing staff,
specialists, and care coordinators/case management. All labs and imaging personally reviewed by me. Remainder the time spent in detailed review of previous records, lab data, imaging, and other medical provider documentation.
Anticipated Discharge: 24 - 48 hours
Subjective/Interval History
-
Date of Service: December 09, 2023
Patient continued to get worse despite best efforts. He is still short of breath, anxious, on high flow oxygen, looks frail overall.
Objective Data
-
Labs:
Laboratory Results
12/09/23
04:43
WBC 31.7 H
Hgb 12.9 L
Hct 37.5 L
Plt Count 146 D
PT 30.1 H
INR 2.82
Sodium 129 L
Potassium 4.0
Chloride 89 L
Carbon Dioxide 27
BUN 87 H
Creatinine 7.1 H*
Glucose 100 H
Calcium 8.3 L
Total Bilirubin 0.7
AST 73 H
ALT 339 H
Alkaline Phosphatase 188 H
Vital Signs:
Vital Signs
Temp Pulse Resp BP Pulse Ox
96.6 F L 140 28 138/102 92
12/09/23 07:30 12/09/23 08:26 12/09/23 08:00 12/09/23 08:26 12/09/23 08:28
I&O
12/08/23 12/09/23 12/10/23
06:59 06:59 06:59
Intake Total 881.4 / 884.0 784.6 / 784.6
Output Total 850 / 850 1350 / 1350
Balance 31.4 / 34.0 -565.4 / -565.4
--- NOTE | 2023-12-09 08:55 | PTCARENOTE ---
Patient update bedside with Dr Camacho.Chest xray, abdominal films, lopressor, IVFbolus, On bedpan with loose stool noted. Still tachypneic, tachycardia, O2 now at 75% with 55lpm Hiflo Respiratory therapy at bedside. Patient refusing food at this
assessment PO liquid offered and provided. Await follow up plan for nephrology. Patient presently on dwell time till 1000am this morning time adjust from am round of PD. Patient back on bedpan, cares provided as needed. Follow up medications via
Emar await am rounds for plan of cares.
[2023-12-09 09:45] LABS: Glucose - Point of Care 128 mg/dl (70-99)
[2023-12-09 09:49] LABS: B.E. -1.5 mmol/L; HCO3 21.3 mmol/L (21-28); O2 Saturation % 94.5 % (94-98); PCO2 30 mmHg (35-48); PO2 68 mmHg (83-108); pH 7.46 (7.35-7.45)
--- NOTE | 2023-12-09 10:52 | PN.DE.MGMTRT ---
Insulin Management
- -
11/18/2023 Diabetes Management Consult
Admitted 11/12 for R foot wound, confusion, SOB, swelling. PMH renal failure with peritoneal dialysis, HTN, PVD type 2 diabetes. Prior to admission chart reflects he was taking 60 units Basaglar daily with NovoLog 28 units BID. A1C 8.6%. Patient
had cardiac arrest 11/16 now intubated on mechanical ventilation and insulin infusion. Prior to this patient was receiving Lantus in AM with AC NovoLog at reduced doses.
Will continue glycemic protocol at this time. If patient is weaned off of ventilator will assess for readiness to transition to subcutaneous insulin.
11/19/2023: Diabetes Management F/U:
Pt extubated last evening. Doing well, sitting up in bed, offers no complaints.
Glucose trended up to 197, remains on glycemic protocol requiring 0.8-7 units of insulin/ hr while NPO.
Pt was taking 60 units Basaglar daily with NovoLog 28 units BID GATE MANAGER.
Will transition off drip. Give Lantus 30 units NOW, turn drip off 1 hr after.
Start AC NovoLog 8 units and moderate corrective insulin with meals. Start 1800 ADA diet. Accucheks AC/HS
Will follow for further needed insulin adjustments. Plan of care d/w pt and Nurse.
11/22/2023: Diabetes Management F/U:
Pt transferred back to ICU for increased O2 requirements.
Currently NPO for R/LHC today. Premeal glucose trended up to 345 requiring 3-7 units of corrective insulin.
Will make no changes to regimen at this time, reassess after procedure and make necessary adjustments to insulin dose
11/23/2023 Diabetes Management Follow Up
Patient glucose controlled on current regimen, trended down to 79 @ HS. Will slightly decrease AM Lantus dose to 27 units to start Wednesday, 11/24.
Patient is NPO for procedure, will order one time dose of Lantus 15 units now.
11/24/2023 Diabetes Management Follow Up
Cardiac cath cancelled yesterday due to patient hypoxia. Dexamethasone 4 mg BID started last evening, glucose up to 460. Insulin administered. Fasting glucose 393. Glycemic protocol has been started. Will continue today and reassess in AM/
11/25/2023 Diabetes Management Follow up
Patient remains on steroids, glucose controlled on glycemic protocol requiring .8 to 10 units NovoLog per hour. He is eating meals and receiving supplemental insulin. Will continue glycemic protocol, assess in AM for readiness to transition to
subq regimen. I spoke with patient nurse.
11/26/2023: Diabetes Management F/U:
Patient remains on steroids- Dexa 4mg Q8hrs, continues on glycemic protocol, glucose range 89-219 requiring .5 to 12 units NovoLog per hour.
He is eating meals and receiving supplemental insulin.
Plan is to start steroid taper today, will continue glycemic protocol for now and reassess later today for readiness to transition to SQ insulin.
11/29/2023: Diabetes Management F/U:
Steroids were tapered down to Pred 40mg daily--> transitioned off CC glycemic protocol to SQ insulin over the weekend
Noted for worsening oxygenation--> resumed high dose IV steroids--> Hyperglycemia.
Pt resting in bed, offers no complaints. Glucose has remained elevated, FBG 301 this AM, premeal range 199 to 345, Dr. Lopez has increased his AC NovoLog dose to 8 units. Will increase Lantus to 35 units, 1st dose will be given tomorrow AM. Cont
current AC dose and corrective insulin with meals
Will closely follow and adjust insulin if necessary.
11/30/2023 Diabetes Management Follow up
Patient continues on steroids. Glucose remains elevated > 200. Lantus to increase to 35 units this AM. NovoLog increased yesterday to 12 units, continued to require corrective insulin. Will increase AC NovoLog to 15 units. Will follow
12/01/2023 Diabetes Management Follow up
Patient continues on steroids. Insulin increased yesterday, glucose remains > 200. Lunch standing dose of NovoLog not given, glucose 364. Additional NPH given. Patients home Basaglar reported at 60 units. Will increase AM Lantus to 40 units,
will increase AC NovoLog to 18 units.
12/02/2023 Diabetes Management Follow up
Patient steroids decreased to 40 mg. Insulin increased again yesterday. Glucose remains in 300's. Will again increase Lantus to 50 units in AM with NovoLog 22 units AC with corrective insulin.
12/03/2023: Diabetes Management F/U:
Steroids were tapered down to Pred 40mg daily--> Pt was noted for worsening oxygenation--> resumed high dose IV steroids--> Solumedrol 125mg Q6hrs
Now with Hyperglycemia. Insulin was adjusted yesterday with minor improvement in glucose levels. FBG pending, was 258 before breakfast.
Will start CC Glycemic protocol for optimal glucose control in setting of escalated IV Steroids. Discussed with pt, Nurse and ICU rounding team.
12/06/2023: Diabetes Management F/U:
Patient remains on IV steroids- Methylpred 60mg Q6hrs and on glycemic protocol, glucose range 76-178 requiring .8 to 7 units NovoLog per hour.
His appetite is poor but eating some meals and receiving supplemental insulin.
Will continue glycemic protocol, clinically not ready to transition to SQ insulin today. Will closely follow.
Discussed with pt, Nurse and ICU rounding team.
12/07/2023 Diabetes Management Follow up
Patient continues on steroids 60 mg IV Q6 hours. He is currently on the glycemic protocol requiring .7 to 7 units per hour. Will continue glycemic protocol. As IV steroids wean down will consider transition from protocol to subcutaneous insulin.
12/08/2023 Diabetes Management Follow up
Patient continues on steroids. Appetite poor. He is currently on the glycemic protocol requiring .6 to 6 units per hour. Will continue glycemic protocol.
12/09/2023 Diabetes Management Follow up
Patient continues on steroids, tapered to 50 mg. Appetite remains poor. Due to critical illness will continue glycemic protocol.
Diabetes History
- -
Type of Diabetes: 2 requiring insulin
Pre-Admission Diabetes Regimen
12/09/23
04:43
Creatinine 7.1 H*
Lab Results
Hemoglobin A1c 8.6 % (4.0-5.6) H 11/13/23 06:09
Insulin Pump Settings
IP Diabetes Regimen
12/08/23 12/08/23 12/08/23
11:43 13:39 15:16
Glucose
POC Glucose 150 H 204 H 125 H
12/08/23 12/08/23 12/08/23
18:03 19:43 22:12
Glucose
POC Glucose 91 126 H 172 H
12/09/23 12/09/23 12/09/23
00:06 02:14 04:32
Glucose
POC Glucose 140 H 119 H 117 H
12/09/23 12/09/23 12/09/23
04:43 06:17 07:39
Glucose 100 H
POC Glucose 144 H 167 H
12/09/23
09:33
Glucose
POC Glucose 128 H
Meal type: Breakfast
Meal type: Dinner
Meal type: Lunch
Amount consumed: 0
Amount consumed: 5%
Amount consumed: 55%
Patient Education
--- NOTE | 2023-12-09 11:07 | W.PN.NEPH.PH ---
Today's Communication / Plan
-
cont PD for now
Assessment/Plan
-
Assessment
-ESRD on PD
-volume overload
-CHF
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
-PAD
-HTN
-edema
-CAD/CABG
-DM2
-Hyponatremia
-In-hospital cardiac arrest 11/17/23
-VT arrest
s/p shock x1 and Epi x1 11/17/23
Plan
-cont PD alternate 2.5%and 4.25% 2L q4h exchanges
Resp status seem worse today with significant tachycardia
remains on high flow
Bp decreases with BB
wts are relatively stable
weaning steroids per pulm
improving LFTs
change modality to HD once pt is hemodynamically stable
d/w nursing , ICU and primary
poor prognosis
CC time spent 35min
-
-
Date of Service: December 09, 2023
CC / HPI / ROS
-
Chief Complaint:
ESRD
History of Present Illness:
PD in progress
s/p code 9 with VT 11/17/23
on high flow O2 and remains on IV Decadron-weaning
BP low with tachy in 150s
WBC increasing
LFTs slightly better
Review of Systems:
no fever
no CP
sob at rest, has palpitations
Weights stable
Labs
-
Labs:
WBC 31.7 10^3/uL (4.8-10.8) H 12/09/23 04:43
RBC 4.25 10^6/uL (4.70-6.10) L 12/09/23 04:43
Hgb 12.9 g/dL (13.0-18.0) L 12/09/23 04:43
Hct 37.5 % (39.0-52.0) L 12/09/23 04:43
Plt Count 146 10^3/uL (130-400) D 12/09/23 04:43
Sodium 129 mmol/L (135-145) L 12/09/23 04:43
Potassium 4.0 mmol/L (3.5-5.1) 12/09/23 04:43
Chloride 89 mmol/L (98-107) L 12/09/23 04:43
Carbon Dioxide 27 mmol/L (22-30) 12/09/23 04:43
BUN 87 mg/dl (9-20) H 12/09/23 04:43
Creatinine 7.1 mg/dL (0.7-1.3) H* 12/09/23 04:43
eGFR 8.00 12/09/23 04:43
Glucose 100 mg/dl (70-99) H 12/09/23 04:43
Calcium 8.3 mg/dl (8.4-10.2) L 12/09/23 04:43
Phosphorus 5.3 mg/dl (2.5-4.5) H 12/06/23 04:16
Dqq-Q-Cpiiwsmshol Pept 08089 pg/ml 12/06/23 04:16
Albumin 2.7 g/dl (3.5-5.0) L 12/09/23 04:43
Physical Exam
-
Vital Signs:
Vital Signs
Temp Pulse Resp BP Pulse Ox
96.6 F L 136 27 87/66 92
12/09/23 07:30 12/09/23 09:30 12/09/23 09:30 12/09/23 09:30 12/09/23 10:23
Cardiovascular:: Regular rate and rhythm (tachy)
Lung Excursion:: Abnormal (decreased)
Abdomen:: Nontender and Soft
Extremity Edema:: None: Bilateral:
Sweeney Catheter: No
--- NOTE | 2023-12-09 11:29 | PTCARENOTE ---
Factory Worker, Hospitalist and nephrology at bedside. Updated plan of cares. Stat ecg obtained. Updated plan of cares, await cardiology input. Await follow up plan of cares. Await family to arrive at bedside to update goals of cares. Continue bedside
critical care nursing. Glycemic protocol continues update with Diabetic bioinformatics team member. Continue follow up medications with pharmacy.
[2023-12-09 11:44] LABS: Glucose - Point of Care 104 mg/dl (70-99)
--- NOTE | 2023-12-09 12:43 | PTCARENOTE ---
Repair Operator at bedside with patient and to discuss plan of cares, family wishes and overall goals of cares. Hospitalist and Nephrology made aware. Will update.
--- NOTE | 2023-12-09 13:06 | W.PN.UPDATE ---
Update Note
Progress Note Update
Called re clinical worsening in spite of efforts, asked her to come to further discussed at bedside
D/w at bedside, explained worsening condition, patient himself declined intubation or further interventions, he understood the concept of terminal care and agreed to comfort care only in presence of
DNR/DNI status
Will start terminal morphine gtt
Emotional support provided to patient and his at bedside
[2023-12-09 13:11] LABS: Magnesium 2.5 mg/dl (1.6-2.3)
--- NOTE | 2023-12-09 13:35 | CM ---
CM following re: discharge planning.
Discussed in rounds, reviewed pt's chart, met with pt. Per Rounds meeting. Goals of care has been discussed with pt and his spouse and both pt and his spouse agree with comfort care.
Hospice consult noted. Pt referred to hospice for evaluation and treatment.
D/C plan: comfort care. auto finance sales rep following.
CM is available for emotional support
--- NOTE | 2023-12-09 14:04 | PTCARENOTE ---
Patient now full comfort measures at this time. Hospitalist and Filling And Stapling Machine Operator were at bedside to update and review events and discuss clinical course. Follow up with nephrology. Patient to drain then complete PD. Stopping glycemic protocol, and
further medications. at bedside continue supportive cares, emotional support and comfort measures.
--- NOTE | 2023-12-09 14:32 | W.PN.UPDATE ---
Update Note
Progress Note Update
chart reviewed. did not see patient. nursing informed me that patient is at this point comfort care. psych will sign off. would dc buspar at this point and use xanax prn or standing for relief of anxiety
--- NOTE | 2023-12-09 14:49 | W.PN.UPDATE ---
Update Note
Progress Note Update
Noted plan for comfort measures. Will sign off
--- NOTE | 2023-12-09 15:50 | PTCARENOTE ---
Continue with comfort measures. Emotional support ans supportive cares ongoing for patient and . to head home at this time. May return later but requests call with any changes. Asking appropriate questions related to pain medications,
management of symptoms and concerns about anxiety for patient. Continue to follow up with hospitalist and bed worker. End of life pain/respiratory distress protocols in place.
[2023-12-09] MEDS: MORPHINE SULFATE 4 MG IV (16:35)
--- NOTE | 2023-12-09 18:22 | W.PN.UPDATE ---
Update Note
Progress Note Update
noted pt now comfort care
stop PD and drain fluid completely
will s/o, his primary weight checker has been notified
[2023-12-09 19:56] LABS: Hepatitis B Surface Antigen Negative (Negative)
[2023-12-09 20:15] LABS: Hepatitis B Core Ab, Total Negative (Negative); Hepatitis B Surface Antibody Negative; Hepatitis C Antibody Negative (Negative)
--- NOTE | 2023-12-09 20:15 | PTCARENOTE ---
HR from 100 to 60 then continued to judi down quickly, pt pronounced at 2014 by TabathaNP- notified by DIRECTOR OF MATERIALS.
[2023-12-09 20:18] LABS: Hepatitis A Antibody, Total Negative (Negative)
--- NOTE | 2023-12-09 20:59 | W.PN.DEATH ---
Pronouncement of
-
Called to see patient to pronounce.
No spontaneous heart tones or respirations noted.
Patient not responsive to verbal stimuli.
Patient is pronounced .
Time of : 20:15
Date of : 12/09/23
Cause of : Respiratory failure due to Inflammatory pneumonitis
Family Notified: Yes
--- NOTE | 2023-12-10 08:21 | W.DCSUMMARY ---
Discharge Summary
Discharge Data
Date of Admission: 11/12/23
Date of Discharge: 12/09/23
-
Pending Results: No
Hospital Course
Patient 63 years old male with multiple comorbidities admitted to the hospital due to mental status changes and unable to do peritoneal dialysis by himself and found to be hypoxic. He was evaluated by multiple specialties including neurology,
nephrology, pulmonary, slope tender, cardiology, psychiatry, GI, among other. Patient hospital course was prolonged and complex. He underwent cardiac arrest and had return of spontaneous circulation and he was on mechanical ventilation in the ICU.
He was able to come off ventilator but later on he deteriorated and he became more hypoxic. CT scan shows interstitial changes in his lungs. Right heart cath did not show significant elevated right-sided pressures. His extra volume has been
taking care of by peritoneal dialysis, he was started on high doses of IV steroids, he was also started IV insulin drip. Despite best efforts patient continued to deteriorate clinically and he did not wanted to pursue further aggressive management
and decided to not resuscitate and also changed to comfort care. agreed with his decision. He was made comfort care. Patient on 12/09/2023 at 2015. Let his soul rest in peace.
Discharge Plan
-
Patient Disposition:
Date/Time
Date/Time: 12/09/23 20:15
Discharge Date and Time
Discharge Date/Time: 12/09/23 20:15
== END 2023-12-09 20:15 | disposition expired | DRG 286 ==
LOC: ICU 18:34
PROVIDERS: Emergency Medicine; Internal Medicine; Internal Medicine Cardiovascular Disease; Internal Medicine Critical Care Medicine; Nurse Practitioner Adult Health; Nurse Practitioner Family; Nurse Practitioner Primary Care; Registered Nurse; Specialist; ADMITTING PHYSICIAN Hospitalist; ATTENDING PHYSICIAN Hospitalist; CONSULT PHYSICIAN Internal Medicine Gastroenterology; CONSULT PHYSICIAN Internal Medicine Pulmonary Disease; CONSULT PHYSICIAN Psychiatry & Neurology Psychiatry; CONSULT PHYSICIAN Specialist; CONSULT PHYSICIAN Student in an Organized Health Care Education/Training Program; EMERGENCY PHYSICIAN Emergency Medicine; FAMILY PHYSICIAN Family Medicine; OTHER PHYSICIAN Internal Medicine Interventional Cardiology
PROC: 3E1M39Z Irrigation of Peritoneal Cavity using Dialysate, Percutaneous Approach (ICD-10-PCS; 2023-11-14)
PROC: 3E033XZ Introduction of Vasopressor into Peripheral Vein, Percutaneous Approach (ICD-10-PCS; 2023-11-17)
PROC: 5A1221J Performance of Cardiac Output, Continuous, Automated (ICD-10-PCS; 2023-11-17)
PROC: 5A12012 Performance of Cardiac Output, Single, Manual (ICD-10-PCS; 2023-11-17)
PROC: 5A1935Z Respiratory Ventilation, Less than 24 Consecutive Hours (ICD-10-PCS; 2023-11-17)
PROC: 0BH17EZ Insertion of Endotracheal Airway into Trachea, Via Natural or Artificial Opening (ICD-10-PCS; 2023-11-17)
PROC: 5A0945A Assistance with Respiratory Ventilation, 24-96 Consecutive Hours, High Flow/Velocity Cannula (ICD-10-PCS; 2023-11-18)
PROC: 0BP1XDZ Removal of Intraluminal Device from Trachea, External Approach (ICD-10-PCS; 2023-11-18)
PROC: 5A09357 Assistance with Respiratory Ventilation, Less than 24 Consecutive Hours, Continuous Positive Airway Pressure (ICD-10-PCS; 2023-11-22)
PROC: B2141ZZ Fluoroscopy of Right Heart using Low Osmolar Contrast (ICD-10-PCS; 2023-11-24)
PROC: 4A023N6 Measurement of Cardiac Sampling and Pressure, Right Heart, Percutaneous Approach (ICD-10-PCS; 2023-11-24)
PROC: 5A0955A Assistance with Respiratory Ventilation, Greater than 96 Consecutive Hours, High Flow/Velocity Cannula (ICD-10-PCS; 2023-12-01)
DX: I13.2 Hypertensive heart and chronic kidney disease with heart failure and with stage 5 chronic kidney disease, or end stage renal disease (principal); G92.8 Other toxic encephalopathy; N18.6 End stage renal disease; I50.33 Acute on chronic diastolic (congestive) heart failure; J96.01 Acute respiratory failure with hypoxia; K72.00 Acute and subacute hepatic failure without coma; I47.20 Ventricular tachycardia, unspecified; E87.1 Hypo-osmolality and hyponatremia; I82.401 Acute embolism and thrombosis of unspecified deep veins of right lower extremity; J84.89 Other specified interstitial pulmonary diseases; I5A Non-ischemic myocardial injury (non-traumatic); Z51.5 Encounter for palliative care; S90.821A Blister (nonthermal), right foot, initial encounter; X58.XXXA Exposure to other specified factors, initial encounter; E11.22 Type 2 diabetes mellitus with diabetic chronic kidney disease; I46.2 Cardiac arrest due to underlying cardiac condition; F32.A Depression, unspecified; I25.10 Atherosclerotic heart disease of native coronary artery without angina pectoris; E78.00 Pure hypercholesterolemia, unspecified; R19.7 Diarrhea, unspecified; E11.51 Type 2 diabetes mellitus with diabetic peripheral angiopathy without gangrene; I49.01 Ventricular fibrillation; E87.6 Hypokalemia; E83.42 Hypomagnesemia; R47.02 Dysphasia; D63.1 Anemia in chronic kidney disease; I48.91 Unspecified atrial fibrillation; I34.81 Nonrheumatic mitral (valve) annulus calcification; E87.5 Hyperkalemia; R07.89 Other chest pain; F41.9 Anxiety disorder, unspecified; I27.20 Pulmonary hypertension, unspecified; I45.10 Unspecified right bundle-branch block; K59.00 Constipation, unspecified; R74.01 Elevation of levels of liver transaminase levels; E11.65 Type 2 diabetes mellitus with hyperglycemia; I95.9 Hypotension, unspecified; K21.9 Gastro-esophageal reflux disease without esophagitis; Z11.52 Encounter for screening for COVID-19; Z79.01 Long term (current) use of anticoagulants; Z95.1 Presence of aortocoronary bypass graft; Z99.2 Dependence on renal dialysis; Z90.49 Acquired absence of other specified parts of digestive tract; Z79.82 Long term (current) use of aspirin; Z79.4 Long term (current) use of insulin; Z87.891 Personal history of nicotine dependence
CPT/HCPCS: 93308; 36600; 36620; 70450; 70551; 71045; 71046; 71250; 71275; 74018; 76700; 80048; 80053; 80061; 80202; 81003; 81015; 82010; 82140; 82248; 82330; 82728; 82805; 82947; 82962; 83036; 83516; 83540; 83550; 83605; 83735; 83880; 84100; 84132; 84145; 84302; 84478; 84484; 85025; 85027; 85610; 85652; 85730; 86038; 86140; 86200; 86235; 86430; 86704; 86705; 86706; 86708; 86803; 86850; 86900; 86901; 87040; 87070; 87205; 87340; 87502; 87641; 87807; 87811; 92526; 92610; 93005; 93306; 93451; 94002; 94003; 94640; 94660; 95816; 96374; 96375; 97116; 97163; 97167; 97530; 97535; 99285; C1894; J0885; Q5106; Q9967